=== PATIENT | female | born 1955 | race Caucasian/White ===

== ENCOUNTER 2019-03-08 11:21 | Outpatient (CLI) | payer MEDICARE, MEDICAID, SELFPAY ==
[2019-03-08 13:19] LABS: Basophils Percent Auto 0.3 % (0.2-1.2); Eosinophils Absolute Auto 0.7 K/mm3 (0-0.3); Eosinophils Percent Auto 8.7 % (0-4.4); Hematocrit 41.6 % (37.0-47.0); Hemoglobin 13.5 g/dL (12.0-15.0); Immature Granulocyte Absolute 0.02 K/mm3 (0.00-0.031); Immature Granulocyte Percent A 0.3 % (0-0.5); Lymphocytes Absolute Auto 3.32 K/mm3 (0.9-3.2); Lymphocytes Percent Auto 43.2 % (18.3-44.2); Mean Corpuscular HGB Conc 32.5 g/dl (32-36); Mean Corpuscular Volume 104.8 fl (80-100); Mean Platelet Volume 9.3 fl (7.4-10.4); Monocytes Absolute Auto 0.5 K/mm3 (0.1-0.6); Monocytes Percent Auto 5.9 % (2.6-8.5); Neutrophils Absolute Auto 3.2 K/mm3 (1.3-6.7); Neutrophils Percent Auto 41.6 % (45.5-73.1); Platelet Count Result 204 k/mm3 (150-375); Red Blood Count 3.97 M/mm3 (4.2-5.4); Red Cell Distribution Width 12.8 % (11.5-14.5); White Blood Count 7.7 K/mm3 (4.5-10.0)
[2019-03-08 13:24] LABS: Add Urine Microscopic? YES; Appearance Urine Cloudy (Clear); Bacteria Urine Trace /hpf; Bilirubin Urine Negative (Negative); Blood Urine 2+ (Negative); Color Urine Yellow (Yellow); Glucose Urine UA Negative (Negative); Ketones Urine Negative (Negative); Leukocyte Esterase Ur 3+ LEU/UL (NEGATIVE); Mucus Urine Rare /lpf; Nitrate Urine Negative (Negative); Protein Urine 1+ mg/dL (Negative); Specific Grav Ur 1.011 (1.001-1.035); Squamous Epithelial Cell Urine Many /hpf (Few); Urobilinogen Urine Negative mg/dL (<2.0); WBC Urine 51-75 /hpf (0-3)
[2019-03-08 13:27] LABS: Alanine Aminotransferase 18 U/L (4-35); Albumin Level 4.1 g/dL (3.5-5.1); Alkaline Phosphatase 139 U/L (38-126); Aspartate Amino Transferase 20 U/L (14-36); Bilirubin,Total 0.5 mg/dL (0.2-1.3); Blood Urea Nitrogen 18 mg/dL (7-17); Calcium 9.7 mg/dL (8.4-10.2); Carbon Dioxide 23 mmol/L (22-30); Chloride 101 mmol/L (98-107); Cholesterol 218 mg/dL (0-200); Estimated Glomerular Filt Rate > 60; Glucose 103 mg/dL (65-105); HDL Direct 48 mg/dL; Potassium 4.5 mmol/L (3.4-5.0); Sodium 135 mmol/L (137-145); Triglycerides 220 mg/dL (<150)
[2019-03-08 13:38] LABS: LDL Cholesterol Direct 129 mg/dL
[2019-03-08 13:46] LABS: Free T4 Free Thyroxine 1.01 ng/mL (0.78-2.19)
[2019-03-08 13:58] LABS: Thyroid Stimulating Hormone 0.523 uIU/mL (0.465-4.680)
== END 2019-03-08 11:22 | disposition home or self-care (01) ==
LOC: ANHWCLAB 11:39
PROVIDERS: PCP Physician Assistant; Visit Provider Physician Assistant
DX: E03.9 Hypothyroidism, unspecified (principal); E78.2 Mixed hyperlipidemia; Z79.899 Other long term (current) drug therapy
CPT/HCPCS: 36415; 80048; 80061; 80076; 81001; 84439; 84443; 85025

== ENCOUNTER 2019-04-09 09:36 | Outpatient (CLI) | payer MEDICARE, MEDICAID, SELFPAY ==
--- NOTE | ~2019-04-09 | DEXA_ITS ---
Bone Density Report Name: Dakotah Jernigan Age: 63 Sex: Female Ethnicity: White Date of : 1955 Indication: osteopenia; prior fracture; asthma or emphysema; Referring Provider: Tata, Efra Study: Bone densitometry was performed. Exam Date: April 09, 2019 Accession number: [id number] Bone Density: Region BMD T-score Z-score Classification AP Spine (L1-L4) 0.765 -2.6 -0.8 Osteoporosis World Health Organization criteria for BMD impression classify patients as: Normal (T-score at or above -1.0), Osteopenia (T-score between -1.0 and -2.5), or Osteoporosis (T-score at or below -2.5). Previous Exams: Region Exam Age BMD T-score BMD Change BMD Change Date g/cm2 vs Baseline vs Previous AP Spine(L1-L4) 04/09/2019 63 0.765 -2.6 -0.112(-12.7%) -0.053(-6.5%)# 10/27/2009 54 0.818 -2.1 -0.059(-6.7%)* 0.021(2.7%) 08/04/2007 52 0.797 -2.3 -0.080(-9.1%)* -0.042(-5.0%)* 01/06/2005 49 0.839 -1.9 -0.038(-4.3%)* -0.038(-4.3%)* 02/17/2004 48 0.877 -1.5 *Denotes significance at 95% confidence level, LSC for AP Spine = 0.022 g/cm2 Clinical Information Provided by Patient: Has had a low trauma fracture Has the following medical conditions: Asthma or Emphysema Patient maximum height was 57 Menopause Age: 35 No regular weight bearing exercise Does not regularly consume dairy products Onset of menses at age 12 Number of children 0 Impression: The patient has established osteoporosis, based on the Total Spine T-score and the existence of a prior fracture. The patient has risk factors, including: previous fracture. No significant bone loss was observed. Discussion: HIGH RISK OF FRACTURE. BONE DENSITY IS UNDESIRABLY LOW AT ONE OR MORE SKELETAL SITES, CONSISTENT WITH POSTMENOPAUSAL OSTEOPOROSIS. This patient's lowest T-score, in a patient who has previously fractured, meets the World Health Organization's (WHO) criteria for severe osteoporosis. In untreated patients, the risk of osteoporotic fracture increases approximately two-fold for each 1.0 SD decrease in T-score. Low bone density is not the only risk factor for fracture; also consider factors such as patient's age, frailty or poor health, risk of falling, risk of injury, previous osteoporotic fracture, family history of osteoporosis, cigarette smoking, low body weight, etc. Not everyone with low bone mineral density has osteoporosis; osteomalacia and other metabolic bone disorders should also be considered. Patients who have osteoporosis should be evaluated for specific diseases and conditions (secondary causes) that may cause or contribute to bone loss. The [place] [employer]ocr[employer] (AACE) and National Osteoporosis Foundation (NOF) recommend pharmacologic
== END 2019-04-09 09:37 | disposition home or self-care (01) ==
PROVIDERS: PCP Physician Assistant; Visit Provider Physician Assistant
DX: Z87.81 Personal history of (healed) traumatic fracture (principal); M81.0 Age-related osteoporosis without current pathological fracture
CPT/HCPCS: 77080

== ENCOUNTER 2019-04-11 14:58 | Outpatient (CLI) | payer MEDICARE, MEDICAID, SELFPAY ==
[2019-04-11 16:23] LABS: Add Urine Microscopic? YES; Appearance Urine Cloudy (Clear); Bacteria Urine 1+ /hpf; Bilirubin Urine Negative (Negative); Blood Urine 2+ (Negative); Color Urine Yellow (Yellow); Glucose Urine UA Negative (Negative); Ketones Urine Negative (Negative); Leukocyte Esterase Ur 3+ LEU/UL (NEGATIVE); Mucus Urine Rare /lpf; Nitrate Urine Positive (Negative); Protein Urine 2+ mg/dL (Negative); RBC Urine 21-50 /hpf (0-2); Specific Grav Ur 1.011 (1.001-1.035); Squamous Epithelial Cell Urine Many /hpf (Few); Urobilinogen Urine Negative mg/dL (<2.0); WBC Clumps Urine Present /HPF; WBC Urine >75 /hpf (0-3)
== END 2019-04-11 14:59 | disposition home or self-care (01) ==
LOC: ANHWCLAB 15:01
PROVIDERS: PCP Physician Assistant; Visit Provider Physician Assistant
DX: N39.0 Urinary tract infection, site not specified (principal)
CPT/HCPCS: 81001; 87077; 87086; 87088; 87186

== ENCOUNTER 2019-04-26 12:32 | Emergency (ER) | payer MEDICARE, MEDICAID, SELFPAY ==
--- NOTE | ~2019-04-26 | XR_ITS ---
EXAMINATION: XR knee RT 3V DATE: 04/26/2019 12:53 INDICATION: Nontraumatic right knee pain TECHNIQUE: Anteroposterior, oblique and crosstable lateral views of the right knee were obtained COMPARISON: 06/03/2018 FINDINGS: Alignment is normal. No fracture. Spaces appear relatively preserved on nonweightbearing imaging. Sm all right knee joint effusion without layering lipohemarthrosis. Soft tissues are unremarkable. IMPRESSION: 1. Small right knee joint effusion without osseous abnormality. Reviewed, dictated and finalized at location A.
[2019-04-26 12:36] VITALS: BP 113/81; PULSE 112; RESP 18; TEMP 36.8; O2SAT 96
--- NOTE | 2019-04-26 13:09 | ED.LOWEXIN ---
HPI - Extremity Injury (Lower) General Chief Complaint: Extremity Injury, Lower Stated Complaint: right knee pain Time Seen by Provider: 04/26/19 12:54 Source: patient Mode of arrival: ambulatory Limitations: no limitations History of Present Illness HPI Narrative: Patient presents emergency department using a cane reporting right knee pain that she noticed when she woke up from her sleep this morning. Patient denies any calf pain or tenderness. Patient denies any tenderness to the outside of the knee. Patient reports that she normally uses a cane to ambulate. Patient denies any recent injuries to the knee. Patient reports having intermittent chronic knee pain. Patient denies any other injuries. Related Data Home Medications Medication Instructions Recorded Confirmed clonazepam 1 mg tablet 1 mg PO DAILY 03/13/19 quetiapine 400 mg tablet 400 mg PO BID 03/13/19 Allergies Allergy/AdvReac Type Severity Reaction Status Date / Time sulfamethoxazole Allergy Mild ITCHING/KATE Verified 04/26/19 12:54 H codeine Allergy Unknown Itching Verified 04/26/19 12:54 Penicillins Allergy Unknown Itching Verified 04/26/19 12:54 trimethoprim Allergy Unknown Itching Verified 04/26/19 12:54 Review of Systems Review of Systems: Narrative: CONSTITUTIONAL: Denies fever, chills, or sweats. EYES: Denies visual changes, redness, or discharge. ENT: Denies rhinorrhea, congestion, sore throat, or otalgia. CARDIOVASCULAR: Denies chest pain, palpitations, or edema. RESPIRATORY: Denies cough or dyspnea. GASTROINTESTINAL: Denies abdominal pain, nausea, vomiting, or diarrhea. GENITOURINARY: Denies dysuria or hematuria. SKIN: Denies rash or itching. MUSCULOSKELETAL: Reports knee pain denies back pain, joint pain, or myalgia. NEUROLOGIC: Denies headache, numbness, dizziness, or weakness. PSYCHIATRIC: Denies anxiety or depression. [facility] Social History Social History Smoking status: Never smoker Second hand tobacco smoke exposure: Yes Alcohol intake: never Gender identity (if verbalized by the patient): Female Exam Narrative: Exam Narrative: GENERAL: Well-appearing, well-nourished, and in no acute distress. HEAD: Normocephalic, atraumatic. EYES: PERRLA and EOMI. CHEST: Clear to auscultation. No respiratory distress. No wheezes rales or rhonchi HEART: Regular rate and rhythm. EXTREMITIES: Normal range of motion. No appreciated swelling. No abrasions, ecchymosis, warmth, erythema to right knee. No other outward signs of injury. SKIN: Warm, dry, no rash. NEURO: No focal deficits. Alert and oriented x3. PSYCH: Normal mood and affect. Course Vital Signs Vital signs: Vital Signs Temperature 98.3 F 04/26/19 12:36 Pulse Rate 112 H 04/26/19 12:36 Respiratory Rate 18 04/26/19 12:36 Blood Pressure 113/81 04/26/19 12:36 Pulse Oximetry 96 04/26/19 12:36 Temperature 98.3 F 04/26/19 12:36 Pulse Rate 112 H 04/26/19 12:36 Respiratory Rate 18 04/26/19 12:36 Blood Pressure 113/81 04/26/19 12:36 Pulse Oximetry 96 04/26/19 12:36 MDM - Extremity Injury (Lower) Imaging Data Radiologist's impression: ITS Impressions Knee X-Ray 04/26/19 12:55 IMPRESSION: 1. Small right knee joint effusion without osseous abnormality. Discharge Plan Discharge Clinical Impression: Effusion of knee joint right Patient Disposition: Home, Self-Care Condition: Stable Instructions: Antibiotic Form Additional Instructions: Wear Arnulfo wrap for support. Elevate and apply cool compress. Avoid overuse. Take Tylenol or ibuprofen [id number] if you can tolerate them and if needed for discomfort. Follow-up with primary care for reevaluation if symptoms persist. Prescriptions: No Action quetiapine [Seroquel] 400 mg tablet 400 mg PO BID RF: 0 clonazepam [Klonopin] 1 mg tablet 1 mg PO DAILY RF: 0 estradiol [Estrace] 0.01 % (0.1 mg
== END 2019-04-26 14:05 | disposition home or self-care (01) ==
PROVIDERS: Emergency Provider Emergency Medicine; PCP Physician Assistant
DX: M25.461 Effusion, right knee (principal)
CPT/HCPCS: 73562; 99283

== ENCOUNTER 2019-07-23 14:45 | Emergency (ER) | payer MEDICARE, MEDICAID, SELFPAY ==
[2019-07-23 14:48] VITALS: BP 131/83; PULSE 105; RESP 18; TEMP 36.6; O2SAT 96
--- NOTE | 2019-07-23 15:07 | ED.GENADULT ---
HPI - General Adult General Chief complaint: Dizziness Stated complaint: dizzy Time Seen by Provider: 07/23/19 15:02 History of Present Illness HPI narrative: Patient presents with dizziness today since she took her morning meds twice yesterday. She said is not like the room is spinning but like she is going to faint. Her blood pressure here is normal she says she does not take blood pressure medicine. She lives alone. She is also has some insomnia. She has no pain and has not been sick. She does not smoke, drink, or do drug. Onset (ago): day(s) Related Data Home Medications Medication Instructions Recorded Confirmed clonazepam 1 mg tablet 1 mg PO DAILY 03/13/19 quetiapine 400 mg tablet 400 mg PO BID 03/13/19 risperidone mg 07/23/19 07/23/19 Allergies Allergy/AdvReac Type Severity Reaction Status Date / Time sulfamethoxazole Allergy Mild ITCHING/KATE Verified 04/26/19 12:54 H codeine Allergy Unknown Itching Verified 04/26/19 12:54 Penicillins Allergy Unknown Itching Verified 04/26/19 12:54 trimethoprim Allergy Unknown Itching Verified 04/26/19 12:54 Review of Systems Review of Systems: Narrative: CONSTITUTIONAL: Denies fever, chills, or sweats. She just feels lightheaded. EYES: Denies visual changes, redness, or discharge. ENT: Denies rhinorrhea, congestion, sore throat, or otalgia. CARDIOVASCULAR: Denies chest pain, palpitations, or edema. RESPIRATORY: Denies cough or dyspnea. GASTROINTESTINAL: Denies abdominal pain, nausea, vomiting, or diarrhea. GENITOURINARY: Denies dysuria or hematuria. SKIN: Denies rash or itching. MUSCULOSKELETAL: Denies back pain, joint pain, or myalgia. NEUROLOGIC: Denies headache, numbness, or weakness. PSYCHIATRIC: Denies anxiety or depression. [facility] Past Medical History Medical History Ankle fracture, left Anxiety Asthma Bipolar 1 disorder Bronchitis COPD (chronic obstructive pulmonary disease) Depression Endometriosis Gall bladder disease Hypothyroid IBS (irritable bowel syndrome) Kidney stones Osteoporosis Pneumonia UTI (urinary tract infection) Surgical History Surgical History H/O bilateral hip replacements H/O tubal ligation Hx of cholecystectomy Social History Social History (Updated 07/23/19 @ 15:09 by Anahy Metcalf MD) Smoking status: Never smoker Second hand tobacco smoke exposure: Yes Alcohol intake: never Substance use: never Living arrangements: alone Gender identity (if verbalized by the patient): Female Exam Narrative: Exam Narrative: GENERAL: Well-appearing, well-nourished, and in no acute distress. HEAD: Normocephalic, atraumatic. EYES: PERRLA and EOMI. eyes are wide set. ENT: Nares clear, no rhinorrhea or epistaxis. Mucous membranes moist. NECK: Supple. CHEST: Clear to auscultation. No respiratory distress. HEART: Regular rate and rhythm. No murmur heard. Normal peripheral pulses. ABDOMEN: Soft, nontender, nondistended, normal active bowel sounds. EXTREMITIES: Normal range of motion. No edema. SKIN: Warm, dry, no rash. NEURO: No focal deficits. Alert and oriented x3. PSYCH: Normal mood and affect. Course Reevaluation(s) Reevaluation #1: Went in to check on the patient, and she is feeling better. She says she is hungry and ready to go. Date: 07/23/19 Time: 17:23 Vital Signs Vital signs: Vital Signs Temperature 97.8 F 07/23/19 14:48 Pulse Rate 105 H 07/23/19 14:48 Respiratory Rate 18 07/23/19 14:48 Blood Pressure 131/83 07/23/19 14:48 Pulse Oximetry 96 07/23/19 14:48 Temperature 97.8 F 07/23/19 14:48 Pulse Rate 82 07/23/19 16:15 Respiratory Rate 18 07/23/19 14:48 Blood Pressure 114/80 07/23/19 16:15 Pulse Oximetry 96 07/23/19 14:48 Medical Decision Making MDM Narrative Medical decision making narrative: I suspect this should be a little orthostatic from the double clon
--- NOTE | 2019-07-23 15:14 | ECG_ITS ---
Measurements Intervals [place] Rate: 78 P: 40 IN: 156 QRS: 29 QRSD: 96 T: 18 QT: 337 QTc: 385 Interpretive Statements SINUS RHYTHM NORMAL ECG Electronically Signed On 07-23-2019 17:10:17 CDT by Mat Munoz D.O.
[2019-07-23] MEDS: SODIUM CHLORIDE 0.9% IV 1,000 ML 999 ML IV CONT (15:47)
[2019-07-23 15:58] LABS: Basophils Percent Auto 0.1 % (0.2-1.2); Eosinophils Absolute Auto 0.4 K/mm3 (0-0.3); Eosinophils Percent Auto 5.8 % (0-4.4); Hematocrit 36.5 % (37.0-47.0); Hemoglobin 12.3 g/dL (12.0-15.0); Immature Granulocyte Absolute 0.02 K/mm3 (0.00-0.031); Immature Granulocyte Percent A 0.3 % (0-0.5); Lymphocytes Absolute Auto 2.66 K/mm3 (0.9-3.2); Lymphocytes Percent Auto 39.6 % (18.3-44.2); Mean Corpuscular HGB Conc 33.7 g/dl (32-36); Monocytes Absolute Auto 0.5 K/mm3 (0.1-0.6); Monocytes Percent Auto 7.6 % (2.6-8.5); Neutrophils Absolute Auto 3.1 K/mm3 (1.3-6.7); Neutrophils Percent Auto 46.6 % (45.5-73.1); Platelet Count Result 174 k/mm3 (150-375); Red Blood Count 3.51 M/mm3 (4.2-5.4); White Blood Count 6.7 K/mm3 (4.5-10.0)
[2019-07-23 16:13] VITALS: BP 125/68; PULSE 72
[2019-07-23 16:14] VITALS: BP 130/83; PULSE 78
[2019-07-23 16:15] VITALS: BP 114/80; PULSE 82
[2019-07-23 16:47] LABS: Alanine Aminotransferase 14 U/L (4-35); Albumin Level 3.8 g/dL (3.5-5.1); Alkaline Phosphatase 112 U/L (38-126); Aspartate Amino Transferase 20 U/L (14-36); Bilirubin,Total 0.2 mg/dL (0.2-1.3); Blood Urea Nitrogen 15 mg/dL (7-17); Calcium 9.1 mg/dL (8.4-10.2); Carbon Dioxide 26 mmol/L (22-30); Chloride 107 mmol/L (98-107); Estimated CRCL calculation 49 ml/min; Estimated Glomerular Filt Rate 50; Glucose 99 mg/dL (65-105); Potassium 3.8 mmol/L (3.4-5.0); Sodium 139 mmol/L (137-145)
[2019-07-23 17:37] VITALS: BP 130/75; PULSE 69; RESP 16; TEMP 36.9; O2SAT 96
== END 2019-07-23 17:38 | disposition home or self-care (01) ==
PROVIDERS: Emergency Provider Emergency Medicine; PCP Physician Assistant
DX: T43.221A Poisoning by selective serotonin reuptake inhibitors, accidental (unintentional), initial encounter (principal); T42.4X1A Poisoning by benzodiazepines, accidental (unintentional), initial encounter; T38.1X1A Poisoning by thyroid hormones and substitutes, accidental (unintentional), initial encounter; T45.0X1A Poisoning by antiallergic and antiemetic drugs, accidental (unintentional), initial encounter; R42 Dizziness and giddiness; F41.9 Anxiety disorder, unspecified; F31.9 Bipolar disorder, unspecified; J44.9 Chronic obstructive pulmonary disease, unspecified; E03.9 Hypothyroidism, unspecified; K58.9 Irritable bowel syndrome, unspecified; Z87.442 Personal history of urinary calculi; M81.0 Age-related osteoporosis without current pathological fracture; Z87.440 Personal history of urinary (tract) infections; N80.9 Endometriosis, unspecified; Z96.643 Presence of artificial hip joint, bilateral
CPT/HCPCS: 36415; 80053; 85025; 93005; 96360; 99283; J7030

== ENCOUNTER 2019-08-01 15:36 | Emergency (ER) | payer MEDICARE, MEDICAID, SELFPAY ==
--- NOTE | ~2019-08-01 | CT_ITS ---
EXAMINATION: CT abdomen pelvis wo con DATE: 08/01/2019 16:15 INDICATION: Flank pain and hematuria TECHNIQUE: Computed tomography (CT) of the abdomen and pelvis was performed without intravenous contr ast. The dose-length product (DLP) was 726.01 mGy-cm. Automated exposure control and iterative recons truction technique were employed. COMPARISON: 01/22/2019 FINDINGS: Minimal dependent atelectasis is present in the lung bases. The heart size is normal. The g allbladder is surgically absent. There is mild enlargement of the common bile duct and central intrah epatic ducts which is likely due to post cholecystectomy state. A cyst of the right hepatic lobe stephanie ures 3.5 cm. The spleen, pancreas, and adrenal glands are normal. There are multiple nonobstructing s tones of the kidneys. Visualization of the distal ureters and portions of the bladder is obscured by streak artifact from bilateral hip arthroplasties. No stones are identified in the ureters or bladder . There is no hydronephrosis or hydroureter.. No pathologically enlarged abdominal or pelvic lymph no tj are identified. There is no free intraperitoneal gas or evidence of bowel obstruction. There is m ild lumbar spondylosis. IMPRESSION: 1. Bilateral nonobstructing nephrolithiasis. Reviewed, dictated and finalized at location A.
[2019-08-01 15:38] VITALS: BP 135/73; PULSE 92; RESP 18; TEMP 36.5; O2SAT 97
--- NOTE | 2019-08-01 16:16 | ED.ABDPAIN ---
HPI - Abdominal Pain General Chief Complaint: Urogenital-Female Stated Complaint: BLOOD IN URINE Time Seen by Provider: 08/01/19 15:53 Source: patient Mode of arrival: ambulatory Limitations: no limitations History of Present Illness HPI narrative: Patient is a 64-year-old female presenting with 1 day duration of left groin flank pain burning with urination denies any fever chills nausea vomiting has not been seen for this complaint has not taken anything for her symptoms notes history of urolithiasis Related Data Home Medications Medication Instructions Recorded Confirmed clonazepam 1 mg tablet 1 mg PO DAILY 03/13/19 quetiapine 400 mg tablet 400 mg PO BID 03/13/19 risperidone mg 07/23/19 07/23/19 Allergies Allergy/AdvReac Type Severity Reaction Status Date / Time sulfamethoxazole Allergy Mild ITCHING/KATE Verified 04/26/19 12:54 H codeine Allergy Unknown Itching Verified 04/26/19 12:54 Penicillins Allergy Unknown Itching Verified 04/26/19 12:54 trimethoprim Allergy Unknown Itching Verified 04/26/19 12:54 Review of Systems Review of Systems: All systems reviewed & are unremarkable except as noted in HPI and below PMFSH Past Medical History Medical History Ankle fracture, left Anxiety Asthma Bipolar 1 disorder Bronchitis COPD (chronic obstructive pulmonary disease) Depression Endometriosis Gall bladder disease Hypothyroid IBS (irritable bowel syndrome) Kidney stones Osteoporosis Pneumonia UTI (urinary tract infection) Surgical History Surgical History H/O bilateral hip replacements H/O tubal ligation Hx of cholecystectomy Social History Social History Smoking status: Never smoker Second hand tobacco smoke exposure: Yes Alcohol intake: never Substance use: never Gender identity (if verbalized by the patient): Female Exam Narrative: Exam Narrative: GENERAL: Well-appearing, well-nourished, and in no acute distress. HEAD: Normocephalic, atraumatic. EYES: PERRLA and EOMI. ENT: Nares clear, no rhinorrhea or epistaxis. Mucous membranes moist. CHEST: Clear to auscultation. No respiratory distress. No wheezes rales or rhonchi HEART: Regular rate and rhythm. No murmur heard. Normal peripheral pulses. ABDOMEN: Soft, nontender, nondistended EXTREMITIES: Normal range of motion. No edema. SKIN: Warm, dry, no rash. NEURO: No focal deficits. Alert and oriented x3. PSYCH: Normal mood and affect. Course Course Emergency Course: Patient in the room in no distress aware of case findings treatment plan and diagnosis agreeing to follow-up with patient's primary care for further evaluation Vital Signs Vital signs: Vital Signs Temperature 97.7 F 08/01/19 15:38 Pulse Rate 92 08/01/19 15:38 Respiratory Rate 18 08/01/19 15:38 Blood Pressure 135/73 08/01/19 15:38 Pulse Oximetry 97 08/01/19 15:38 Temperature 97.7 F 08/01/19 15:38 Pulse Rate 92 08/01/19 15:38 Respiratory Rate 18 08/01/19 15:38 Blood Pressure 135/73 08/01/19 15:38 Pulse Oximetry 97 08/01/19 15:38 MDM - Abdominal Pain MDM Narrative Medical decision making narrative: Patient in the room with findings consistent of urinary tract infection no other high risk changes noted patient given Rocephin and fluids in the emergency department with improvement and will be discharged home with reasons to return Lab Data Labs: Lab Results 08/01/19 Range/Units 15:56 Urine Color Pending Urine Appearance Pending Urine pH Pending Ur Specific [place] Pending Urine Protein Pending Urine Glucose (UA) Pending Urine Ketones Pending Ur Blood (Man) Pending Urine Nitrate Pending Urine Bilirubin Pending Urine Urobilinogen Pending Leukocyte Esterase Rfl Pending Imaging Data Radiologist's impression:
[2019-08-01 16:17] LABS: Add Urine Microscopic? YES; Amorphous Sediment Urine Few; Appearance Urine Cloudy (Clear); Bacteria Urine Trace /hpf; Bilirubin Urine Negative (Negative); Blood Urine 1+ (Negative); Color Urine Yellow (Yellow); Glucose Urine UA Negative (Negative); Ketones Urine Negative (Negative); Leukocyte Esterase Ur 3+ LEU/UL (Negative); Mucus Urine Rare /lpf; Nitrate Urine Positive (Negative); Protein Urine 1+ mg/dL (Negative); RBC Urine 21-50 /hpf (0-2); Specific Grav Ur 1.012 (1.001-1.035); Squamous Epithelial Cell Urine Many /hpf (Few); Urobilinogen Urine Negative mg/dL (<2.0); WBC Clumps Urine Present /HPF; WBC Urine >75 /hpf
[2019-08-01] MEDS: FAMOTIDINE 20 MG/2 ML VIAL IV PUSH (16:51)
[2019-08-01] MEDS: SODIUM CHLORIDE 0.9% IV 1,000 ML 999 ML IV CONT (16:52)
[2019-08-01 17:11] LABS: Basophils Percent Auto 0.3 % (0.2-1.2); Eosinophils Absolute Auto 0.5 K/mm3 (0-0.3); Eosinophils Percent Auto 6.5 % (0-4.4); Hematocrit 35.4 % (37.0-47.0); Hemoglobin 11.6 g/dL (12.0-15.0); Immature Granulocyte Absolute 0.03 K/mm3 (0.00-0.031); Immature Granulocyte Percent A 0.4 % (0-0.5); Lymphocytes Absolute Auto 3.26 K/mm3 (0.9-3.2); Mean Corpuscular HGB Conc 32.8 g/dl (32-36); Mean Corpuscular Hemoglobin 34.5 pg (26-34); Mean Corpuscular Volume 105.4 fl (80-100); Mean Platelet Volume 8.5 fl (7.4-10.4); Monocytes Absolute Auto 0.6 K/mm3 (0.1-0.6); Monocytes Percent Auto 8.4 % (2.6-8.5); Neutrophils Absolute Auto 2.9 K/mm3 (1.3-6.7); Neutrophils Percent Auto 39.4 % (45.5-73.1); Platelet Count Result 160 k/mm3 (150-375); Red Blood Count 3.36 M/mm3 (4.2-5.4); Red Cell Distribution Width 13.2 % (11.5-14.5); White Blood Count 7.2 K/mm3 (4.5-10.0)
[2019-08-01 17:23] LABS: Alanine Aminotransferase 14 U/L (4-35); Albumin Level 3.6 g/dL (3.5-5.1); Alkaline Phosphatase 109 U/L (38-126); Aspartate Amino Transferase 18 U/L (14-36); Bilirubin,Total 0.2 mg/dL (0.2-1.3); Blood Urea Nitrogen 15 mg/dL (7-17); Calcium 8.9 mg/dL (8.4-10.2); Carbon Dioxide 28 mmol/L (22-30); Chloride 107 mmol/L (98-107); Estimated CRCL calculation 53 ml/min; Estimated Glomerular Filt Rate 56; Glucose 98 mg/dL (65-105); Potassium 4.3 mmol/L (3.4-5.0); Sodium 138 mmol/L (137-145)
[2019-08-01 18:20] VITALS: BP 142/70; PULSE 78; RESP 20; O2SAT 99
--- NOTE | 2019-08-02 15:25 | PC.NURSE ---
Patient called in with questions about Rx given yesterday. She states EDP sent Penicillin and Benadryl Rx to the pharmacy for her UTI. This RN informed patient that two prescriptions, Keflex and Pyridium were sent in to [facility] the [facility] yesterday for picker and packer. Pt verbalized understanding and stated she would call the pharmacy again.
== END 2019-08-01 18:21 | disposition home or self-care (01) ==
PROVIDERS: Emergency Medicine Emergency Medical Services; Emergency Provider Emergency Medicine; PCP Physician Assistant
DX: N39.0 Urinary tract infection, site not specified (principal); N20.0 Calculus of kidney; Z87.442 Personal history of urinary calculi; F41.9 Anxiety disorder, unspecified; F31.9 Bipolar disorder, unspecified; J44.9 Chronic obstructive pulmonary disease, unspecified; N80.9 Endometriosis, unspecified; E03.9 Hypothyroidism, unspecified; K58.9 Irritable bowel syndrome, unspecified; M81.0 Age-related osteoporosis without current pathological fracture; Z96.643 Presence of artificial hip joint, bilateral
CPT/HCPCS: 36415; 74176; 80053; 81001; 85025; 87077; 87086; 87088; 87186; 96365; 96367; 96375; 99284; J0131; J0696; J7030

== ENCOUNTER 2019-08-07 15:30 | Emergency (ER) | payer MEDICARE, MEDICAID, SELFPAY ==
--- NOTE | ~2019-08-07 | XR_ITS ---
EXAMINATION: XR abdomen/kub 1V INDICATION: Abdominal and flank pain TECHNIQUE: Supine views of the abdomen were obtained on 2 radiographs. COMPARISON: 03/12/2018; CT, 08/01/2019 FINDINGS: Stones in the kidneys measure up to 7 mm on the right and 11 mm on the left. No stones are identified along the expected courses of the ureter or within the bladder. There are phleboliths of t he pelvis. Cholecystectomy clips are noted in the right upper quadrant. The visualized lung bases are clear. There are changes of bilateral total hip arthroplasty. IMPRESSION: 1. Bilateral nephrolithiasis. Reviewed, dictated and finalized at location A.
[2019-08-07 15:40] VITALS: BP 117/84; PULSE 93; RESP 18; TEMP 36.6; O2SAT 95
[2019-08-07 16:15] LABS: Add Urine Microscopic? YES; Appearance Urine Cloudy (Clear); Bacteria Urine Trace /hpf; Bilirubin Urine Negative (Negative); Blood Urine 2+ (Negative); Color Urine Amber (Yellow); Glucose Urine UA Negative (Negative); Ketones Urine Negative (Negative); Leukocyte Esterase Ur 3+ LEU/UL (Negative); Mucus Urine Moderate /lpf; Nitrate Urine Positive (Negative); Protein Urine 2+ mg/dL (Negative); RBC Urine 51-75 /hpf (0-2); Specific Grav Ur 1.015 (1.001-1.035); Squamous Epithelial Cell Urine Many /hpf (Few); WBC Urine >75 /hpf
--- NOTE | 2019-08-07 17:49 | ED.ABDPAIN ---
HPI - Abdominal Pain General Chief Complaint: Abdominal Pain Stated Complaint: Abd Pain, Back Pain Time Seen by Provider: 08/07/19 17:22 Source: patient Mode of arrival: ambulatory Limitations: no limitations History of Present Illness HPI narrative: This patient is a 64 year old female who presents for evaluation mid abdominal pain starting yesterday. She states 2 days ago she developed diarrhea so she took antidiarrhea medication yesterday. AFter taking the medication she states she has had cramping mid abdominal pain. She reports nausea but no vomiting. She denies fever or chills. She also notes she was evaluated her a few days ago for intermittent flank pain and back pain. She was found to have bilateral kidney stones and she states those stones have been present for years. MD elicited complaint: abdominal pain Related Data Home Medications Medication Instructions Recorded Confirmed clonazepam 1 mg tablet 1 mg PO DAILY 03/13/19 quetiapine 400 mg tablet 400 mg PO BID 03/13/19 risperidone mg 07/23/19 07/23/19 Allergies Allergy/AdvReac Type Severity Reaction Status Date / Time sulfamethoxazole Allergy Mild ITCHING/KATE Verified 04/26/19 12:54 H codeine Allergy Unknown Itching Verified 04/26/19 12:54 Penicillins Allergy Unknown Itching Verified 04/26/19 12:54 trimethoprim Allergy Unknown Itching Verified 04/26/19 12:54 Review of Systems Review of Systems: All systems reviewed & are unremarkable except as noted in HPI and below Constitutional: Constitutional: Denies chills and Denies fever(s) Respiratory: Respiratory: Denies cough and Denies dyspnea Gastrointestinal: Gastrointestinal: Reports abdominal pain, Reports diarrhea, Reports nausea and Denies vomiting Genitourinary: Genitourinary: Denies hematuria, Denies nocturia, Denies dysuria and Reports flank pain Musculoskeletal: Musculoskeletal: Reports back pain PMFSH Social History Social History Smoking status: Never smoker Second hand tobacco smoke exposure: Yes Alcohol intake: never Substance use: never Gender identity (if verbalized by the patient): Female Exam Narrative: Exam Narrative: GENERAL: Well-appearing, well-nourished, and in no acute distress. HEAD: Normocephalic, atraumatic EYES: PERRLA and EOMI, NOSE: widened nasal bridge THROAT:Mucous membranes moist, Oropharynx normal without erythema, exudate, peritonsillar swelling or fluctuance NECK: Supple, without lymphadenopathy or mass RESPIRATORY: No respiratory distress, Airway patent, Respirations non-labored, Clear to auscultation without rales, rhonchi or wheeze HEART: Regular rate and rhythm. No murmur heard. Normal peripheral pulses. ABDOMEN: Soft, nontender, nondistended, normal active bowel sounds. No masses. No rebound or guarding, No organomegaly. EXTREMITIES: No edema, normal strength with full range of motion. SKIN: Warm, dry, normal color without rash NEURO: Alert and oriented x3. CN 2-12 grossly intact. No focal deficits. PSYCH: Normal mood and affect. Course Reevaluation(s) Reevaluation #1: I have discussed with patient that we will change her antibiotics as culture and sensitivity has returned. Labs are other gonzales normal and abdominal exam is normal Date: 08/07/19 Time: 18:35 Vital Signs Vital signs: Vital Signs Temperature 97.8 F 08/07/19 15:40 Pulse Rate 93 08/07/19 15:40 Respiratory Rate 18 08/07/19 15:40 Blood Pressure 117/84 08/07/19 15:40 Pulse Oximetry 95 08/07/19 15:40 Temperature 97.8 F 08/07/19 15:40 Pulse Rate 93 08/07/19 15:40 Respiratory Rate 18 08/07/19 15:40 Blood Pressure 117/84 08/07/19 15:40 Pulse Oximetry 95 08/07/19 15:40 MDM - Abdominal Pain Lab Data Attestation: I reviewed the patient's lab results. Result diagrams: 08/07/19 17:43 08/07/19 17:43 Labs: Lab Results 08/07/19 08/07/19
[2019-08-07 17:50] LABS: Basophils Percent Auto 0.2 % (0.2-1.2); Eosinophils Absolute Auto 0.4 K/mm3 (0-0.3); Eosinophils Percent Auto 4.7 % (0-4.4); Hematocrit 41.5 % (37.0-47.0); Hemoglobin 13.4 g/dL (12.0-15.0); Immature Granulocyte Absolute 0.02 K/mm3 (0.00-0.031); Immature Granulocyte Percent A 0.2 % (0-0.5); Lymphocytes Absolute Auto 3.03 K/mm3 (0.9-3.2); Lymphocytes Percent Auto 35.8 % (18.3-44.2); Mean Corpuscular HGB Conc 32.3 g/dl (32-36); Mean Corpuscular Hemoglobin 34.5 pg (26-34); Mean Platelet Volume 8.8 fl (7.4-10.4); Monocytes Absolute Auto 0.4 K/mm3 (0.1-0.6); Monocytes Percent Auto 4.8 % (2.6-8.5); Neutrophils Absolute Auto 4.6 K/mm3 (1.3-6.7); Neutrophils Percent Auto 54.3 % (45.5-73.1); Platelet Count Result 202 k/mm3 (150-375); Red Blood Count 3.88 M/mm3 (4.2-5.4); Red Cell Distribution Width 13.2 % (11.5-14.5); White Blood Count 8.5 K/mm3 (4.5-10.0)
[2019-08-07 18:03] LABS: Alanine Aminotransferase 17 U/L (4-35); Albumin Level 4.2 g/dL (3.5-5.1); Alkaline Phosphatase 147 U/L (38-126); Aspartate Amino Transferase 22 U/L (14-36); Bilirubin,Total 0.5 mg/dL (0.2-1.3); Blood Urea Nitrogen 17 mg/dL (7-17); Calcium 9.7 mg/dL (8.4-10.2); Carbon Dioxide 25 mmol/L (22-30); Chloride 106 mmol/L (98-107); Estimated CRCL calculation 46 ml/min; Estimated Glomerular Filt Rate 45; Glucose 97 mg/dL (65-105); Lipase 159 U/L (23-300); Potassium 4.3 mmol/L (3.4-5.0); Sodium 138 mmol/L (137-145)
[2019-08-07] MEDS: ONDANSETRON HCL ODT 4 MG TABLET PO (19:10)
[2019-08-07] MEDS: NITROFURANTOIN MONOHYD MACROCR 100 MG CAP PO (19:10)
[2019-08-07] MEDS: DICYCLOMINE HCL INJ 20 MG/2 ML VIAL IM (19:10)
== END 2019-08-07 19:12 | disposition home or self-care (01) ==
PROVIDERS: Physician Assistant; Emergency Provider General Practice; PCP Physician Assistant
DX: N39.0 Urinary tract infection, site not specified (principal)
CPT/HCPCS: 36415; 74018; 80053; 81001; 83690; 85025; 87086; 96372; 99283; A9270; J0500

== ENCOUNTER 2019-08-22 15:56 | Emergency (ER) | payer MEDICARE, MEDICAID, SELFPAY ==
--- NOTE | ~2019-08-22 | CT_ITS ---
EXAMINATION: CT abdomen pelvis w con DATE: 08/22/2019 18:39 INDICATION: Left flank pain. TECHNIQUE: Computed tomography (CT) of the abdomen and pelvis was performed with 100 mL Omnipaque 350 intravenous contrast. Automated exposure control and iterative reconstruction technique were employe d. The dose-length product was 647.43 mGy-cm. COMPARISON: CT abdomen and pelvis 08/01/2019 FINDINGS: The visualized portions of the lung bases demonstrate mild atelectasis. No pleural effusion . The heart size is normal. No pericardial effusion. There are cysts in the liver measuring up to 3.6 cm. There are changes of cholecystectomy. The spleen, pancreas, and adrenal glands are normal. There are greater than 10 stones in right kidney measuring up to 6 mm. There are cysts in left kidney stephanie uring up to 3.9 cm. There are greater than 10 stones in left kidney measuring up to 11 mm. There are no dilated loops of bowel. The appendix is normal. There are no pathologically enlarged lymph nodes. There is no free intraperitoneal fluid. There are bilateral total hip arthroplasties. There is mild l umbar spondylosis. IMPRESSION: 1. Bilateral nonobstructing kidney stones. Reviewed, dictated and finalized at location A.
--- NOTE | ~2019-08-22 | XR_ITS ---
EXAMINATION: XR abdomen/kub 1V DATE: 08/22/2019 18:46 INDICATION: Left flank pain. TECHNIQUE: A supine view of the abdomen on 2 radiographs was obtained. COMPARISON: CT abdomen and pelvis 08/22/2019 FINDINGS: There are no dilated loops of bowel. There are bilateral total hip arthroplasties. There ar e stones in the kidneys that are partially obscured by contrast. No hydronephrosis. Surgical clips in the right upper quadrant are likely from cholecystectomy. IMPRESSION: 1. Bilateral kidney stones. Reviewed, dictated and finalized at location A. IMPRESSION: 1. Bilateral kidney stones.
[2019-08-22 15:58] VITALS: BP 129/62; PULSE 80; RESP 20; TEMP 36.7; O2SAT 98
--- NOTE | 2019-08-22 16:16 | ED.GENADULT ---
HPI - General Adult General Chief complaint: Back Pain/Injury Stated complaint: R FLANK PAIN Time Seen by Provider: 08/22/19 16:15 Source: patient Mode of arrival: ambulatory Limitations: no limitations History of Present Illness HPI narrative: 64-year-old female patient presents to the [facility] with complaints of left lower back pain that started today. Patient states she was seen recently and was diagnosed with a UTI. Patient states that she will take her last dose of antibiotics tonight before bed. Patient denies any fevers, nausea, vomiting or diarrhea. Patient states she knows she has some kidney stones but states that the pain to the left lower back is increased. Patient denies taking anything for the pain. Patient states that she is also had a little bit of some abdominal pain but nothing severe. Patient denies any pain with urination. Related Data Home Medications Medication Instructions Recorded Confirmed clonazepam 1 mg tablet 1 mg PO DAILY 03/13/19 quetiapine 400 mg tablet 400 mg PO BID 03/13/19 risperidone mg 07/23/19 07/23/19 Allergies Allergy/AdvReac Type Severity Reaction Status Date / Time sulfamethoxazole Allergy Mild ITCHING/KATE Verified 04/26/19 12:54 H codeine Allergy Unknown Itching Verified 04/26/19 12:54 Penicillins Allergy Unknown Itching Verified 04/26/19 12:54 trimethoprim Allergy Unknown Itching Verified 04/26/19 12:54 Review of Systems Review of Systems: Narrative: CONSTITUTIONAL: Denies fever, chills, or sweats. EYES: Denies visual changes, redness, or discharge. ENT: Denies rhinorrhea, congestion, sore throat, or otalgia. CARDIOVASCULAR: Denies chest pain, palpitations, or edema. RESPIRATORY: Denies cough or dyspnea. GASTROINTESTINAL: Denies abdominal pain, nausea, vomiting, or diarrhea. GENITOURINARY: Denies dysuria or hematuria. Left flank pain SKIN: Denies rash or itching. MUSCULOSKELETAL: Denies back pain, joint pain, or myalgia. NEUROLOGIC: Denies headache, numbness, or weakness. PSYCHIATRIC: Denies anxiety or depression. FORMERLY [facility] Past Medical History Medical History Ankle fracture, left Anxiety Asthma Bipolar 1 disorder Bronchitis COPD (chronic obstructive pulmonary disease) Depression Endometriosis Gall bladder disease Hypothyroid IBS (irritable bowel syndrome) Kidney stones Osteoporosis Pneumonia UTI (urinary tract infection) Surgical History Surgical History H/O bilateral hip replacements H/O tubal ligation Hx of cholecystectomy Family History Family History Sibling Patient's sister is in good health Father Acute myocardial infarction Hypertension Mother Family history of diabetes mellitus in first degree relative Other Family history of blood dyscrasia Social History Social History Smoking status: Never smoker Second hand tobacco smoke exposure: Yes Alcohol intake: never Substance use: never Gender identity (if verbalized by the patient): Female Comments At the time of my signature I agree with nursing past medical history, surgical, social, and family history. There is no relevant family history pertinent to the presenting complaint. Exam Narrative: Exam Narrative: GENERAL: Well-appearing, well-nourished, and in no acute distress. HEAD: Normocephalic, atraumatic. EYES: PERRLA and EOMI. ENT: Nares clear, no rhinorrhea or epistaxis. Mucous membranes moist. NECK: Supple. No lymphadenopathy CHEST: Clear to auscultation. No respiratory distress. HEART: Regular rate and rhythm. No murmur heard. Normal peripheral pulses. ABDOMEN: Soft, flat, nondistended. Slight tenderness noted to the right lower quadrant on palpation. No guarding, rebound tenderness, or rigid. No pulsatilla masses. Bowel sounds present in all four
[2019-08-22 17:53] LABS: Basophils Percent Auto 0.1 % (0.2-1.2); Eosinophils Absolute Auto 0.5 K/mm3 (0-0.3); Eosinophils Percent Auto 7.5 % (0-4.4); Hematocrit 37.3 % (37.0-47.0); Hemoglobin 12.3 g/dL (12.0-15.0); Immature Granulocyte Absolute 0.01 K/mm3 (0.00-0.031); Immature Granulocyte Percent A 0.1 % (0-0.5); Lymphocytes Absolute Auto 2.61 K/mm3 (0.9-3.2); Mean Corpuscular Hemoglobin 35.1 pg (26-34); Mean Corpuscular Volume 106.6 fl (80-100); Mean Platelet Volume 8.8 fl (7.4-10.4); Monocytes Absolute Auto 0.5 K/mm3 (0.1-0.6); Monocytes Percent Auto 6.5 % (2.6-8.5); Neutrophils Absolute Auto 3.6 K/mm3 (1.3-6.7); Neutrophils Percent Auto 49.8 % (45.5-73.1); Platelet Count Result 155 k/mm3 (150-375); White Blood Count 7.2 K/mm3 (4.5-10.0)
[2019-08-22 18:05] LABS: Alanine Aminotransferase 16 U/L (4-35); Albumin Level 3.9 g/dL (3.5-5.1); Alkaline Phosphatase 112 U/L (38-126); Aspartate Amino Transferase 22 U/L (14-36); Bilirubin,Total 0.5 mg/dL (0.2-1.3); Blood Urea Nitrogen 19 mg/dL (7-17); Calcium 9.5 mg/dL (8.4-10.2); Carbon Dioxide 28 mmol/L (22-30); Chloride 106 mmol/L (98-107); Estimated CRCL calculation 55 ml/min; Estimated Glomerular Filt Rate 56; Glucose 102 mg/dL (65-105); Potassium 4.6 mmol/L (3.4-5.0); Sodium 138 mmol/L (137-145)
[2019-08-22] MEDS: SODIUM CHLORIDE 0.9% IV 1,000 ML 999 ML IV CONT (18:08)
[2019-08-22 18:09] VITALS: BP 123/77; PULSE 78; RESP 20; O2SAT 99
[2019-08-22 18:12] LABS: Prothrombin Time 12.8 Seconds (11.1-14.7)
[2019-08-22 18:13] LABS: Partial Thromboplastin Time 27.4 SECONDS (22.3-36.8)
[2019-08-22 18:20] LABS: Add Urine Microscopic? YES; Appearance Urine Cloudy (Clear); Bacteria Urine Trace /hpf; Bilirubin Urine Negative (Negative); Blood Urine 1+ (Negative); Color Urine Yellow (Yellow); Glucose Urine UA Negative (Negative); Ketones Urine Negative (Negative); Leukocyte Esterase Ur 3+ LEU/UL (Negative); Mucus Urine Rare /lpf; Nitrate Urine Negative (Negative); Protein Urine Negative (Negative); RBC Urine 21-50 /hpf (0-2); Specific Grav Ur 1.014 (1.001-1.035); Squamous Epithelial Cell Urine Many /hpf (Few); Urobilinogen Urine Negative mg/dL (<2.0); WBC Urine >75 /hpf
[2019-08-22] MEDS: FAMOTIDINE 20 MG TABLET PO (19:14)
[2019-08-22 19:37] VITALS: BP 122/78; PULSE 78; RESP 20; TEMP 36.8; O2SAT 99
== END 2019-08-22 19:39 | disposition home or self-care (01) ==
PROVIDERS: Emergency Provider Nurse Practitioner Family; PCP Physician Assistant
DX: N20.0 Calculus of kidney (principal); F41.9 Anxiety disorder, unspecified; F31.9 Bipolar disorder, unspecified; J44.9 Chronic obstructive pulmonary disease, unspecified; N80.9 Endometriosis, unspecified; E03.9 Hypothyroidism, unspecified; K58.9 Irritable bowel syndrome, unspecified; Z87.442 Personal history of urinary calculi; M81.0 Age-related osteoporosis without current pathological fracture; Z96.643 Presence of artificial hip joint, bilateral; R10.9 Unspecified abdominal pain
CPT/HCPCS: 36415; 74018; 74177; 80053; 81001; 85025; 85610; 85730; 87086; 96360; 99284; A9270; J7030; Q9967

== ENCOUNTER 2019-09-26 14:36 | Outpatient (CLI) | payer MEDICARE, MEDICAID, SELFPAY ==
--- NOTE | ~2019-09-26 | XR_ITS ---
EXAMINATION: XR abdomen/kub 1V INDICATION: Calculus of kidney TECHNIQUE: Supine views of the abdomen were obtained on 2 radiographs. COMPARISON: 08/22/2019 FINDINGS: At least six stones and clusters of stones are identified in the left kidney which measure up to 12 mm and appears stable. There are at least three stones or clusters of stones in the right ki dney which measure up to 9 mm, also stable. No stones are identified along the expected courses of th e ureters or within the urinary bladder. Pelvic phleboliths are noted. There are bilateral total hip arthroplasties. The bowel gas pattern is normal. IMPRESSION: 1. Stable bilateral nephrolithiasis. Reviewed, dictated and finalized at location A.
== END 2019-09-26 14:37 | disposition home or self-care (01) ==
PROVIDERS: PCP Physician Assistant; Visit Provider Urology
DX: N20.0 Calculus of kidney (principal)
CPT/HCPCS: 74018

== ENCOUNTER 2019-10-25 19:06 | Emergency (ER) | payer MEDICARE, MEDICAID, SELFPAY ==
[2019-10-25 19:17] VITALS: BP 115/74; PULSE 80; RESP 17; TEMP 36.8; O2SAT 97
--- NOTE | 2019-10-25 19:40 | ED.URI ---
HPI - URI/Sore Throat General Chief Complaint: Upper Respiratory Infection Stated Complaint: stuffy nose? Time Seen by Provider: 10/25/19 19:40 Source: patient Mode of arrival: ambulatory Limitations: no limitations History of Present Illness HPI Narrative: Patient is a 64-year-old female with a history of COPD, bipolar disorder who presents for evaluation of nasal congestion. Patient states she has had 3 days worth of constant nasal congestion, that has been refractory to treatment with many [id number] remedies. Patient denies mild, clear rhinorrhea. No epistaxis, no purulent discharge. She denies fever or sinus pain. She denies chest pain, cough or shortness of breath. No sore throat or otalgia. No loss of sense of taste or smell. No recent sick contacts. I went through an entire gamut with review of systems and patient really is only reporting stuffy nose. Related Data Home Medications Medication Instructions Recorded Confirmed clonazepam 1 mg tablet 1 mg PO DAILY 03/13/19 quetiapine 400 mg tablet 400 mg PO BID 03/13/19 risperidone mg 07/23/19 07/23/19 Allergies Allergy/AdvReac Type Severity Reaction Status Date / Time sulfamethoxazole Allergy Mild ITCHING/KATE Verified 10/25/19 19:19 H codeine Allergy Unknown Itching Verified 10/25/19 19:19 Penicillins Allergy Unknown Itching Verified 10/25/19 19:19 trimethoprim Allergy Unknown Itching Verified 10/25/19 19:19 Review of Systems Review of Systems: Narrative: CONSTITUTIONAL: Denies fever HEENT: Reports nasal congestion, denies eye discharge CARDIOVASCULAR: Denies chest pain RESPIRATORY: Denies cough or dyspnea. GASTROINTESTINAL: Denies abdominal pain SKIN: Denies rash MUSCULOSKELETAL: Denies back pain NEUROLOGIC: Denies headache [facility]LY [facility] Past Medical History Medical History Ankle fracture, left Anxiety Asthma Bipolar 1 disorder Bronchitis COPD (chronic obstructive pulmonary disease) Depression Endometriosis Gall bladder disease Hypothyroid IBS (irritable bowel syndrome) Kidney stones Osteoporosis Pneumonia UTI (urinary tract infection) Surgical History Surgical History H/O bilateral hip replacements H/O tubal ligation Hx of cholecystectomy Family History Family History Sibling Patient's sister is in good health Father Acute myocardial infarction Hypertension Mother Family history of diabetes mellitus in first degree relative Other Family history of blood dyscrasia Social History Social History Smoking status: Never smoker Second hand tobacco smoke exposure: Yes Alcohol intake: never Substance use: never Gender identity (if verbalized by the patient): Female Exam Narrative: Exam Narrative: GENERAL: Awake, alert, conversant HEAD: Normocephalic, atraumatic. EYES: PERRLA and EOMI. ENT: Nares clear, no rhinorrhea or epistaxis. Mucous membranes moist. Mild rhinorrhea bilaterally. Nares are patent. No mass identified. NECK: Supple. Oropharynx is clear. Uvula is midline. No petechiae or erythema. No exudate. No trismus. CHEST: No respiratory distress, breathing even and non labored HEART: Regular rate, sinus rhythm ABDOMEN:Non distended, non tender EXTREMITIES: Normal range of motion. No edema. SKIN: Warm, dry, no rash. NEURO:No focal deficits. Alert and oriented x3 Course Vital Signs Vital signs: Vital Signs Temperature 36.8 C 10/25/19 19:17 Pulse Rate 80 10/25/19 19:17 Respiratory Rate 10/25/19 19:17 Blood Pressure 115/74 10/25/19 19:17 Pulse Oximetry 97 10/25/19 19:17 Temperature 36.8 C 10/25/19 19:17 Pulse Rate 80 10/25/19 19:17 Respiratory Rate 17 10/25/19 19:17 Blood Pressure 115/74 10/25/19 19:17 Pulse Oximetry 97 10/25/19 19:17
[2019-10-25 20:21] VITALS: BP 119/69; PULSE 83; RESP 16; TEMP 36.6; O2SAT 100
== END 2019-10-25 20:25 | disposition home or self-care (01) ==
PROVIDERS: Emergency Provider Emergency Medicine; PCP Physician Assistant
DX: J06.9 Acute upper respiratory infection, unspecified (principal); Z96.643 Presence of artificial hip joint, bilateral; F41.9 Anxiety disorder, unspecified; F31.9 Bipolar disorder, unspecified; J45.909 Unspecified asthma, uncomplicated; J44.9 Chronic obstructive pulmonary disease, unspecified; N80.9 Endometriosis, unspecified; E03.9 Hypothyroidism, unspecified; M81.0 Age-related osteoporosis without current pathological fracture
CPT/HCPCS: 99283

== ENCOUNTER 2020-04-02 10:18 | Outpatient (CLI) | payer MEDICARE, MEDICAID, SELFPAY ==
[2020-04-02 10:54] LABS: Basophils Percent Auto 0.2 % (0.2-1.2); Eosinophils Absolute Auto 0.4 K/mm3 (0-0.3); Eosinophils Percent Auto 6.2 % (0-4.4); Hematocrit 37.2 % (37.0-47.0); Hemoglobin 12.5 g/dL (12.0-15.0); Immature Granulocyte Absolute 0.01 K/mm3 (0.00-0.031); Immature Granulocyte Percent A 0.2 % (0-0.5); Lymphocytes Absolute Auto 2.39 K/mm3 (0.9-3.2); Lymphocytes Percent Auto 37.7 % (18.3-44.2); Mean Corpuscular HGB Conc 33.6 g/dl (32-36); Mean Corpuscular Hemoglobin 34.7 pg (26-34); Mean Corpuscular Volume 103.3 fl (80-100); Mean Platelet Volume 8.7 fl (7.4-10.4); Monocytes Absolute Auto 0.3 K/mm3 (0.1-0.6); Monocytes Percent Auto 4.9 % (2.6-8.5); Neutrophils Absolute Auto 3.2 K/mm3 (1.3-6.7); Neutrophils Percent Auto 50.8 % (45.5-73.1); Platelet Count Result 180 k/mm3 (150-375); Red Cell Distribution Width 12.3 % (11.5-14.5); White Blood Count 6.3 K/mm3 (4.5-10.0)
[2020-04-02 10:58] LABS: Add Urine Microscopic? YES; Appearance Urine Cloudy (Clear); Bacteria Urine Trace /hpf; Bilirubin Urine Negative (Negative); Blood Urine 2+ (Negative); Color Urine Yellow (Yellow); Glucose Urine UA Negative (Negative); Ketones Urine Negative (Negative); Leukocyte Esterase Ur 3+ LEU/UL (NEGATIVE); Mucus Urine Rare /lpf; Nitrate Urine Negative (Negative); Protein Urine 1+ mg/dL (Negative); Specific Grav Ur 1.011 (1.001-1.035); Squamous Epithelial Cell Urine Many /hpf (Few); Urobilinogen Urine Negative mg/dL (<2.0); WBC Urine >75 /hpf (0-3)
[2020-04-02 11:17] LABS: Alanine Aminotransferase 22 U/L (4-35); Albumin Level 3.9 g/dL (3.5-5.1); Alkaline Phosphatase 108 U/L (38-126); Anion Gap 4 mmol/L (8-16); Aspartate Amino Transferase 22 U/L (14-36); Bilirubin,Total 0.5 mg/dL (0.2-1.3); Blood Urea Nitrogen 16 mg/dL (7-17); Calcium 9.4 mg/dL (8.4-10.2); Carbon Dioxide 26 mmol/L (22-30); Chloride 110 mmol/L (98-107); Cholesterol 211 mg/dL (0-200); Estimated Glomerular Filt Rate 45; Glucose 105 mg/dL (65-105); HDL Direct 46 mg/dL; Sodium 140 mmol/L (137-145); Triglycerides 101 mg/dL (<150)
[2020-04-02 11:28] LABS: LDL Cholesterol Direct 116 mg/dL
== END 2020-04-02 10:19 | disposition home or self-care (01) ==
LOC: ANHLAB 10:22
PROVIDERS: PCP Physician Assistant; Visit Provider Physician Assistant
DX: E03.9 Hypothyroidism, unspecified (principal); E78.2 Mixed hyperlipidemia; Z79.899 Other long term (current) drug therapy
CPT/HCPCS: 36415; 80048; 80061; 80076; 81001; 84439; 84443; 85025

== ENCOUNTER 2020-04-14 10:13 | Outpatient (CLI) | payer MEDICARE, MEDICAID, SELFPAY ==
--- NOTE | ~2020-04-14 | MM_ITS ---
EXAMINATION: MM screening ezequiel BI w cristiane HISTORY: Screening mammogram TECHNIQUE: Craniocaudal and mediolateral oblique 3-D tomosynthesis images were obtained and synthetic 2-D images were generated. CAD analysis was submitted and interpreted. COMPARISON: 02/13/2019 diagnostic left digital mammogram and complete left breast ultrasound 07/07/2018 bilateral digital screening mammogram 10/26/2011 bilateral diagnostic BREAST PARENCHYMAL COMPOSITION: The breasts are heterogeneously dense, which may obscure small masses . FINDINGS: There are numerous (especially on the left) bilateral low-density circumscribed opacities o f variable size, many with halo sign, measuring up to approximately 1.7 cm on the left, 8.4 mm on the right. Occasional bilateral benign calcifications. There is no evidence of suspicious mass, calcification, or architectural distortion to suggest malign getachew in either breast. There has been no suspicious interval change. IMPRESSION: 1. No mammographic evidence of malignancy. 2. Recommend routine screening mammography in one year. BI-RADS Category 2: Benign finding(s). Reviewed, dictated and finalized at location A. NTER
== END 2020-04-14 10:14 | disposition home or self-care (01) ==
LOC: ANHIMG 10:16
PROVIDERS: PCP Physician Assistant; Visit Provider Physician Assistant
DX: Z12.31 Encounter for screening mammogram for malignant neoplasm of breast (principal)
CPT/HCPCS: 77063; 77067

== ENCOUNTER 2020-06-05 22:23 | Emergency (ER) | payer MEDICARE, MEDICAID, SELFPAY ==
[2020-06-05] VITALS (10 sets, daily range): BP systolic 116–137; BP diastolic 61–82; PULSE 67–86; RESP 16–25; TEMP 36.4; O2SAT 96–98
--- NOTE | ~2020-06-05 | XR_ITS ---
EXAMINATION: XR chest 2V DATE: 06/05/2020 23:15 INDICATION: Left lower chest pain TECHNIQUE: PA and lateral views of the chest were obtained. COMPARISON: Chest radiograph dated 01/22/[address] dated 09/09/2018 FINDINGS: The lungs remain clear with no focal airspace opacities, pulmonary edema, pleural effusion or pneumot horax. Heart size is normal. Small bilateral paracardial fat pads. Cholecystectomy clips in right upp er quadrant. IMPRESSION: 1. No acute cardiopulmonary disease. Reviewed, dictated and finalized at location A.
--- NOTE | 2020-06-05 22:30 | ECG_ITS ---
Measurements Intervals [place] Rate: 79 P: 52 [place]: 153 QRS: 21 QRSD: 101 T: 7 QT: 343 QTc: 394 Interpretive Statements SINUS RHYTHM BASELINE ARTIFACT- I, II, III, AVR, AVL, AVF, V2-V6 BORDERLINE ECG Electronically Signed On 06-06-2020 7:32:16 CDT by Mat Munoz D.O.
--- NOTE | 2020-06-05 23:11 | PC.NURSE ---
Patient denies chest pain. No nitro needed at this time.
--- NOTE | 2020-06-05 23:42 | ED.CHESTPAIN ---
HPI - Chest Pain General Chief Complaint: Chest Pain Stated Complaint: chest pain, non radiating Time Seen by Provider: 06/05/20 22:27 Source: patient Mode of arrival: ambulatory Limitations: no limitations History of Present Illness HPI narrative: 65-year-old female History of asthma and COPD no cardiac history Patient reports a 2 or 3-hour history of having sharp precordial pains every 15 minutes or so She says the pains are unprovoked not associated with breathing movement position or activity They are over in the blink of an eye No associated cough fever shortness of breath nausea diaphoresis palpitations Related Data Home Medications Medication Instructions Recorded Confirmed clonazepam 1 mg tablet 1 mg PO DAILY 03/13/19 quetiapine 400 mg tablet 400 mg PO BID 03/13/19 risperidone mg 07/23/19 07/23/19 Allergies Allergy/AdvReac Type Severity Reaction Status Date / Time sulfamethoxazole Allergy Mild ITCHING/KATE Verified 10/25/19 19:19 H codeine Allergy Unknown Itching Verified 10/25/19 19:19 Penicillins Allergy Unknown Itching Verified 10/25/19 19:19 trimethoprim Allergy Unknown Itching Verified 10/25/19 19:19 Review of Systems Review of Systems: All systems reviewed & are unremarkable except as noted in HPI and below Constitutional: Constitutional: Reports no additional constitutional complaints, Denies chills, Denies fever(s) and Denies headache(s) Eyes: Eyes: Reports no additional eye complaints and Denies change in vision ENT: Denies headache(s) and Denies sore throat Cardiovascular: Cardiovascular: Reports chest pain and Denies dyspnea Respiratory: Respiratory: Denies cough and Denies dyspnea Gastrointestinal: Gastrointestinal: Denies abdominal pain, Denies diarrhea and Denies vomiting Genitourinary: Genitourinary: Denies urinary frequency and Denies dysuria Musculoskeletal: Musculoskeletal: Denies deformity, Denies arthralgias, Denies joint swelling and Denies numbness Integumentary/Breasts: Skin/Breast: Denies rash and Denies wounds Neurologic: Denies headache(s), Denies focal weakness and Denies numbness Psychiatric: Psychiatric: Reports no additional psychiatric complaints Endocrine: Endocrine: Reports no additional endocrine complaints Hematologic/Lymphatic: Hematologic/Lymphatic: Reports no additional hematologic/lymphatic complaints Allergic/Immunologic: Allergic/Immunologic: Reports no additional allergic/immunologic complaints PMFSH Past Medical History Medical History (Updated 06/05/20 @ 23:48 by Craig Wright MD) Ankle fracture, left Anxiety Asthma Bipolar 1 disorder Bronchitis COPD (chronic obstructive pulmonary disease) Depression Endometriosis Gall bladder disease Hypothyroid IBS (irritable bowel syndrome) Kidney stones Osteoporosis Pneumonia UTI (urinary tract infection) Surgical History Surgical History H/O bilateral hip replacements H/O tubal ligation Hx of cholecystectomy Family History Family History Sibling Patient's sister is in good health Father Acute myocardial infarction Hypertension Mother Family history of diabetes mellitus in first degree relative Other Family history of blood dyscrasia Social History Social History Smoking status: Never smoker Second hand tobacco smoke exposure: Yes Alcohol intake: never Substance use: never Gender identity (if verbalized by the patient): Female Exam Const: General: cooperative, no acute distress and alert Orientation/consciousness: patient oriented x3 (alert) HENMT: Head: normal to inspection, normocephalic and atraumatic Ears: external ears normal General nose exam: no epistaxis Eyes: Conjunctivae: conjunctivae normal EOM: EOMs intact bilaterally Neck: Neck: normal visual inspection, supple and n
[2020-06-05 23:45] LABS: Basophils Percent Auto 0.3 % (0.2-1.2); Eosinophils Absolute Auto 0.7 K/mm3 (0-0.3); Eosinophils Percent Auto 10.5 % (0-4.4); Hematocrit 37.3 % (37.0-47.0); Hemoglobin 12.1 g/dL (12.0-15.0); Immature Granulocyte Absolute 0.02 K/mm3 (0.00-0.031); Immature Granulocyte Percent A 0.3 % (0-0.5); Lymphocytes Absolute Auto 3.35 K/mm3 (0.9-3.2); Lymphocytes Percent Auto 49.3 % (18.3-44.2); Mean Corpuscular HGB Conc 32.4 g/dl (32-36); Mean Corpuscular Hemoglobin 35.2 pg (26-34); Mean Corpuscular Volume 108.4 fl (80-100); Mean Platelet Volume 9.1 fl (7.4-10.4); Monocytes Absolute Auto 0.5 K/mm3 (0.1-0.6); Monocytes Percent Auto 6.9 % (2.6-8.5); Neutrophils Absolute Auto 2.2 K/mm3 (1.3-6.7); Neutrophils Percent Auto 32.7 % (45.5-73.1); Platelet Count Result 168 k/mm3 (150-375); Red Blood Count 3.44 M/mm3 (4.2-5.4); Red Cell Distribution Width 12.1 % (11.5-14.5); White Blood Count 6.8 K/mm3 (4.5-10.0)
[2020-06-05 23:48] LABS: Alanine Aminotransferase 14 U/L (4-35); Albumin Level 3.8 g/dL (3.5-5.1); Alkaline Phosphatase 99 U/L (38-126); Anion Gap 3 mmol/L (8-16); Aspartate Amino Transferase 24 U/L (14-36); Bilirubin,Total 0.3 mg/dL (0.2-1.3); Blood Urea Nitrogen 22 mg/dL (7-17); Calcium 9.3 mg/dL (8.4-10.2); Carbon Dioxide 30 mmol/L (22-30); Chloride 106 mmol/L (98-107); Estimated CRCL calculation 43 ml/min; Estimated Glomerular Filt Rate 50; Glucose 105 mg/dL (65-105); Potassium 4.3 mmol/L (3.4-5.0); Sodium 139 mmol/L (137-145)
[2020-06-06] VITALS: PULSE 74; RESP 22; O2SAT 97
[2020-06-06 00:01] VITALS: BP 117/66; PULSE 74; RESP 24; O2SAT 97
[2020-06-06 00:02] LABS: NT Pro B Type Natriuretic Pept 63 pg/mL (5-100); Troponin I < 0.012 ng/mL (0.000-0.034)
[2020-06-06 00:15] VITALS: PULSE 76; RESP 20; O2SAT 98
[2020-06-06 00:28] VITALS: BP 122/80; PULSE 67; RESP 23; O2SAT 97
== END 2020-06-06 00:28 | disposition home or self-care (01) ==
PROVIDERS: Emergency Provider Emergency Medicine; PCP Physician Assistant
DX: R07.2 Precordial pain (principal); J44.9 Chronic obstructive pulmonary disease, unspecified; N80.9 Endometriosis, unspecified; E03.9 Hypothyroidism, unspecified; K58.9 Irritable bowel syndrome, unspecified; M81.0 Age-related osteoporosis without current pathological fracture; Z87.440 Personal history of urinary (tract) infections; Z87.442 Personal history of urinary calculi; Z96.643 Presence of artificial hip joint, bilateral; R94.31 Abnormal electrocardiogram [ECG] [EKG]; F31.9 Bipolar disorder, unspecified; F41.9 Anxiety disorder, unspecified
CPT/HCPCS: 36415; 71046; 80053; 83880; 84484; 85025; 93005; 99284

== ENCOUNTER 2020-07-06 11:46 | Emergency (ER) | payer MEDICARE, MEDICAID, SELFPAY ==
[2020-07-06 11:54] VITALS: BP 103/77; PULSE 94; RESP 20; TEMP 36.5; O2SAT 95
[2020-07-06 12:15] LABS: Basophils Percent Auto 0.1 % (0.2-1.2); Eosinophils Absolute Auto 0.3 K/mm3 (0-0.3); Eosinophils Percent Auto 4.6 % (0-4.4); Hemoglobin 13.5 g/dL (12.0-15.0); Immature Granulocyte Absolute 0.02 K/mm3 (0.00-0.031); Immature Granulocyte Percent A 0.3 % (0-0.5); Lymphocytes Absolute Auto 2.36 K/mm3 (0.9-3.2); Lymphocytes Percent Auto 31.9 % (18.3-44.2); Mean Corpuscular HGB Conc 33.8 g/dl (32-36); Mean Corpuscular Hemoglobin 34.6 pg (26-34); Mean Corpuscular Volume 102.6 fl (80-100); Mean Platelet Volume 9.1 fl (7.4-10.4); Monocytes Absolute Auto 0.3 K/mm3 (0.1-0.6); Monocytes Percent Auto 4.3 % (2.6-8.5); Neutrophils Absolute Auto 4.3 K/mm3 (1.3-6.7); Neutrophils Percent Auto 58.8 % (45.5-73.1); Platelet Count Result 157 k/mm3 (150-375); White Blood Count 7.4 K/mm3 (4.5-10.0)
[2020-07-06 12:31] LABS: Alanine Aminotransferase 18 U/L (4-35); Albumin Level 4.2 g/dL (3.5-5.1); Alkaline Phosphatase 115 U/L (38-126); Anion Gap 7 mmol/L (8-16); Aspartate Amino Transferase 22 U/L (14-36); Bilirubin,Total 0.4 mg/dL (0.2-1.3); Blood Urea Nitrogen 19 mg/dL (7-17); Carbon Dioxide 24 mmol/L (22-30); Chloride 109 mmol/L (98-107); Estimated CRCL calculation 43 ml/min; Estimated Glomerular Filt Rate 50; Glucose 108 mg/dL (65-105); Lipase 173 U/L (23-300); Potassium 4.1 mmol/L (3.4-5.0); Sodium 140 mmol/L (137-145)
--- NOTE | 2020-07-06 13:32 | PC.NURSE ---
PT RO THE DESKS STATES SHE IS FEELING BETTER AND HAS MEDICATION AT HOME SHE CAN TAKE. DISCUSSED RISKS OF LEAVING BEFORE SEEING A MD. VERBALIZES UNDERSTANDING
== END 2020-07-07 04:09 | disposition left against medical advice (07) ==
PROVIDERS: Emergency Provider Emergency Medicine; PCP Physician Assistant
DX: R19.7 Diarrhea, unspecified (principal)
CPT/HCPCS: 36415; 80053; 83690; 85025; 99199

== ENCOUNTER 2020-07-07 10:08 | Emergency (ER) | payer MEDICARE, MEDICAID, SELFPAY ==
--- NOTE | ~2020-07-07 | CT_ITS ---
EXAMINATION: CT abdomen pelvis w con DATE: 07/07/2020 11:59 INDICATION: Upper abdominal pain. TECHNIQUE: Computed tomography (CT) of the abdomen and pelvis was performed with 100 mL Omnipaque 350 intravenous contrast. Automated exposure control and iterative reconstruction technique were employe d. The dose-length product was 731.43 mGy-cm. COMPARISON: CT abdomen and pelvis 08/22/2019 FINDINGS: The visualized portions of the lung bases demonstrate mild atelectasis. There is a small pn eumatocele in right middle lobe. No pleural effusion. The heart size is normal. No pericardial effusi on. There is a small sliding hiatal hernia. There are cysts in the liver measuring up to 3.5 cm. Ther e are changes of cholecystectomy. The common duct is dilated to 13 mm without change. The spleen, galindo creas, and adrenal glands are normal. There are cysts in the kidneys measuring up to 3.8 cm on the le ft. There are greater than 10 stones in right kidney measuring up to 7 mm. There are greater than 10 stones in left kidney measuring up to 13 mm. There are no dilated loops of bowel. The appendix is nor mal. There are no pathologically enlarged lymph nodes. There is no free intraperitoneal fluid. There are bilateral total hip arthroplasties. There is mild lumbar spondylosis. IMPRESSION: 1. Chronic mild biliary duct dilatation status post cholecystectomy. 2. Small sliding hiatal hernia. 3. Bilateral nonobstructing kidney stones. Reviewed, dictated and finalized at location A.
[2020-07-07 10:12] VITALS: BP 128/70; PULSE 69; RESP 18; TEMP 36.3; O2SAT 96
[2020-07-07 10:49] LABS: Basophils Percent Auto 0.2 % (0.2-1.2); Eosinophils Absolute Auto 0.3 K/mm3 (0-0.3); Eosinophils Percent Auto 3.3 % (0-4.4); Hematocrit 42.2 % (37.0-47.0); Hemoglobin 14.1 g/dL (12.0-15.0); Immature Granulocyte Absolute 0.02 K/mm3 (0.00-0.031); Immature Granulocyte Percent A 0.2 % (0-0.5); Lymphocytes Absolute Auto 3.33 K/mm3 (0.9-3.2); Lymphocytes Percent Auto 35.1 % (18.3-44.2); Mean Corpuscular HGB Conc 33.4 g/dl (32-36); Mean Corpuscular Hemoglobin 34.7 pg (26-34); Mean Corpuscular Volume 103.9 fl (80-100); Mean Platelet Volume 9.1 fl (7.4-10.4); Monocytes Absolute Auto 0.4 K/mm3 (0.1-0.6); Monocytes Percent Auto 4.3 % (2.6-8.5); Neutrophils Absolute Auto 5.4 K/mm3 (1.3-6.7); Neutrophils Percent Auto 56.9 % (45.5-73.1); Platelet Count Result 171 k/mm3 (150-375); Red Blood Count 4.06 M/mm3 (4.2-5.4); White Blood Count 9.5 K/mm3 (4.5-10.0)
[2020-07-07 10:53] LABS: Add Urine Microscopic? YES; Appearance Urine Cloudy (Clear); Bacteria Urine 2+ /hpf; Bilirubin Urine Negative (Negative); Blood Urine 2+ (Negative); Color Urine Amber (Yellow); Glucose Urine UA Negative (Negative); Ketones Urine Negative (Negative); Leukocyte Esterase Ur 3+ LEU/UL (Negative); Mucus Urine Heavy /lpf; Nitrate Urine Negative (Negative); Protein Urine 1+ mg/dL (Negative); RBC Urine 21-50 /hpf (0-2); Specific Grav Ur 1.018 (1.001-1.035); Squamous Epithelial Cell Urine Many /hpf (Few); WBC Urine >75 /hpf
[2020-07-07 10:58] LABS: Alanine Aminotransferase 57 U/L (4-35); Albumin Level 4.4 g/dL (3.5-5.1); Alkaline Phosphatase 143 U/L (38-126); Anion Gap 9 mmol/L (8-16); Aspartate Amino Transferase 63 U/L (14-36); Bilirubin,Total 0.7 mg/dL (0.2-1.3); Blood Urea Nitrogen 20 mg/dL (7-17); Calcium 10.2 mg/dL (8.4-10.2); Carbon Dioxide 25 mmol/L (22-30); Chloride 108 mmol/L (98-107); Estimated CRCL calculation 43 ml/min; Estimated Glomerular Filt Rate 50; Glucose 109 mg/dL (65-105); Lipase 212 U/L (23-300); Potassium 4.2 mmol/L (3.4-5.0); Sodium 142 mmol/L (137-145)
[2020-07-07 11:15] VITALS: BP 120/71; PULSE 59; RESP 16; O2SAT 96
--- NOTE | 2020-07-07 11:44 | ED.NAVMDI ---
HPI - Nausea/Vomiting/Diarrhea General Chief complaint: Nausea/Vomiting/Diarrhea Stated complaint: diarrhea x 7 days Time Seen by Provider: 07/07/20 11:14 Source: patient Mode of arrival: ambulatory Limitations: no limitations History of Present Illness HPI Narrative: This is a 65-year-old female that presents to the emergency department for diarrhea x 7 days. Also reporting some epigastric discomfort yesterday that has now mostly resolved. Reports she has been using otc medications for her diarrhea with little relief. Denies fever, vomiting, hematochezia, melena, or dysuria. Related Data Home Medications Medication Instructions Recorded Confirmed clonazepam 1 mg tablet 1 mg PO DAILY 03/13/19 quetiapine 400 mg tablet 400 mg PO BID 03/13/19 risperidone mg 07/23/19 07/23/19 Allergies Allergy/AdvReac Type Severity Reaction Status Date / Time sulfamethoxazole Allergy Mild ITCHING/KATE Verified 10/25/19 19:19 H codeine Allergy Unknown Itching Verified 10/25/19 19:19 Penicillins Allergy Unknown Itching Verified 10/25/19 19:19 trimethoprim Allergy Unknown Itching Verified 10/25/19 19:19 Review of Systems Review of Systems: Narrative: CONSTITUTIONAL: Denies fever CARDIOVASCULAR: Denies chest pain RESPIRATORY: Denies dyspnea. GASTROINTESTINAL: Reports abdominal pain, and diarrhea. Denies nausea, vomiting GENITOURINARY: Denies dysuria All systems reviewed & are unremarkable except as noted in HPI and below PMFSH Past Medical History Medical History (Updated 07/07/20 @ 15:04 by Triny Snyder PA-C) Ankle fracture, left Anxiety Asthma Bipolar 1 disorder Bronchitis COPD (chronic obstructive pulmonary disease) Depression Endometriosis Gall bladder disease Hypothyroid IBS (irritable bowel syndrome) Kidney stones Osteoporosis Pneumonia UTI (urinary tract infection) Surgical History Surgical History H/O bilateral hip replacements H/O tubal ligation Hx of cholecystectomy Family History Family History Sibling Patient's sister is in good health Father Acute myocardial infarction Hypertension Mother Family history of diabetes mellitus in first degree relative Other Family history of blood dyscrasia Social History Social History Smoking status: Never smoker Second hand tobacco smoke exposure: Yes Alcohol intake: never Substance use: never Gender identity (if verbalized by the patient): Female Exam Narrative: Exam Narrative: GENERAL: Well-appearing, well-nourished, and in no acute distress. HEAD: Normocephalic, atraumatic. EYES: EOMI. CHEST: Clear to auscultation. No respiratory distress. No wheezes rales or rhonchi HEART: Regular rate and rhythm. No murmur heard. Normal peripheral pulses. ABDOMEN: Soft, nondistended, normal active bowel sounds. Mild tenderness to palpation throughout the abdomen, without guarding. No CVA tenderness EXTREMITIES: Normal range of motion. No edema. SKIN: Warm, dry, no rash. NEURO: No focal deficits. Alert and oriented x3. PSYCH: Normal mood and affect Course Vital Signs Vital signs: Vital Signs Temperature 97.4 F L 07/07/20 10:12 Pulse Rate 69 07/07/20 10:12 Respiratory Rate 18 07/07/20 10:12 Blood Pressure 128/70 07/07/20 10:12 Pulse Oximetry 96 07/07/20 10:12 Temperature 97.4 F L 07/07/20 10:12 Pulse Rate 69 07/07/20 10:12 Respiratory Rate 18 07/07/20 10:12 Blood Pressure 128/70 07/07/20 10:12 Pulse Oximetry 96 07/07/20 10:12 MDM - Nausea/Vomiting/Diarrhea MDM Narrative Medical decision making narrative: Patient presents the emergency department for x1 week. Was also reporting upper abdominal discomfort since yesterday, that had mostly resolved now. She is afebrile and nontoxic-appearing. CBC is without leukocytosis. Metabolic panel with k
--- NOTE | 2020-07-07 11:51 | ECG_ITS ---
Measurements Intervals [place] Rate: 60 P: 57 [place]: 151 QRS: -8 QRSD: 98 T: 14 QT: 408 QTc: 410 Interpretive Statements SINUS RHYTHM VENTRICULAR PREMATURE COMPLEX BASELINE ARTIFACT- II, III, AVR, AVL, AVF, V1, V3-V6 BORDERLINE ECG Electronically Signed On 07-07-2020 13:50:36 CDT by Mat Munoz D.O.
[2020-07-07 12:15] VITALS: BP 137/69; PULSE 57; RESP 18; O2SAT 99
[2020-07-07] MEDS: SODIUM CHLORIDE 0.9% IV 500 ML 999 ML IV CONT (12:19)
[2020-07-07 13:15] VITALS: BP 136/72; PULSE 67; RESP 18; O2SAT 98
[2020-07-07 14:15] VITALS: BP 127/71; PULSE 59; RESP 17; O2SAT 99
[2020-07-07 15:16] VITALS: BP 130/73; PULSE 62; RESP 16; O2SAT 99
== END 2020-07-07 15:16 | disposition home or self-care (01) ==
PROVIDERS: Emergency Provider Emergency Medicine; PCP Physician Assistant
DX: N30.00 Acute cystitis without hematuria (principal); K83.8 Other specified diseases of biliary tract; R19.7 Diarrhea, unspecified; R74.01 Elevation of levels of liver transaminase levels; J44.9 Chronic obstructive pulmonary disease, unspecified; N80.9 Endometriosis, unspecified; E03.9 Hypothyroidism, unspecified; K58.9 Irritable bowel syndrome, unspecified; M81.0 Age-related osteoporosis without current pathological fracture; F41.9 Anxiety disorder, unspecified; F31.9 Bipolar disorder, unspecified; Z87.442 Personal history of urinary calculi; Z87.440 Personal history of urinary (tract) infections; Z96.643 Presence of artificial hip joint, bilateral; K44.9 Diaphragmatic hernia without obstruction or gangrene; N20.0 Calculus of kidney; I49.3 Ventricular premature depolarization
CPT/HCPCS: 36415; 74177; 80053; 81001; 81025; 83690; 85025; 87077; 87086; 87088; 87186; 93005; 96365; 99284; J0696; J7040; Q9967

== ENCOUNTER 2020-08-17 11:29 | Emergency (ER) | payer MEDICARE, MEDICAID, SELFPAY ==
--- NOTE | ~2020-08-17 | US_ITS ---
EXAMINATION: US venous doppler [facility] DATE: 08/17/2020 13:27 INDICATION: Lower limb swelling. TECHNIQUE: Grayscale ultrasound images without and with compression and Doppler ultrasound images of the bilateral lower extremity veins were obtained. COMPARISON: Ultrasound 06/03/2018 FINDINGS: The visualized portions of right common femoral vein, profunda (deep) femoral vein, femoral vein, pop liteal vein, peroneal veins, posterior tibial veins, and greater saphenous vein outflow are patent. The visualized portions of left common femoral vein, profunda femoral vein, femoral vein, popliteal v ein, peroneal veins, posterior tibial veins, and greater saphenous vein outflow are patent. IMPRESSION: 1. No deep venous thrombosis. Reviewed, dictated and finalized at location A.
[2020-08-17 11:31] VITALS: BP 138/75; PULSE 88; RESP 18; TEMP 36.6; O2SAT 98
--- NOTE | 2020-08-17 12:58 | ED.EXTPRO ---
HPI - Extremity Problem General Chief complaint: Extremity Problem,Nontraumatic Stated complaint: edema Time Seen by Provider: 08/17/20 12:36 Source: patient and RN notes reviewed Mode of arrival: ambulatory Limitations: no limitations History of Present Illness HPI Narrative: This is a 65 year old female who presents for evaluation bilateral leg swelling. She noticed swelling to bilateral feet and legs last night. She reports history of swelling to right leg in the past, and she was diagnosed with RLE DVT years ago . She completed a course and Coumadin years ago and she no longer takes it. She denies trauma. She denies chest pain, sob, nausea, vomiting, numbness, tingling or dizziness. Related Data Home Medications Medication Instructions Recorded Confirmed clonazepam 1 mg tablet 1 mg PO DAILY 03/13/19 quetiapine 400 mg tablet 400 mg PO BID 03/13/19 risperidone mg 07/23/19 07/23/19 Allergies Allergy/AdvReac Type Severity Reaction Status Date / Time sulfamethoxazole Allergy Mild ITCHING/KATE Verified 07/17/20 12:44 H codeine Allergy Unknown Itching Verified 07/17/20 12:44 Penicillins Allergy Unknown Itching Verified 07/17/20 12:44 trimethoprim Allergy Unknown Itching Verified 07/17/20 12:44 Review of Systems Review of Systems: All systems reviewed & are unremarkable except as noted in HPI and below PMFSH Past Medical History Medical History (Updated 08/17/20 @ 14:54 by April Eldridge MD) Ankle fracture, left Anxiety Asthma Bipolar 1 disorder Bronchitis COPD (chronic obstructive pulmonary disease) Depression Endometriosis Gall bladder disease Hypothyroid IBS (irritable bowel syndrome) Kidney stones Osteoporosis Pneumonia UTI (urinary tract infection) Surgical History Surgical History H/O bilateral hip replacements H/O tubal ligation Hx of cholecystectomy Family History Family History Sibling Patient's sister is in good health Father Acute myocardial infarction Hypertension Mother Family history of diabetes mellitus in first degree relative Other Family history of blood dyscrasia Social History Social History Smoking status: Never smoker Second hand tobacco smoke exposure: Yes Alcohol intake: never Substance use: never Gender identity (if verbalized by the patient): Female Exam Const: General: no acute distress and alert Orientation/consciousness: patient oriented x3 Eyes: EOM: EOMs intact bilaterally Resp: Effort & Inspection: normal respiratory effort and no retractions Auscultation: clear to auscultation bilaterally Cardio: Rate: regular rate Rhythm: regular rhythm Heart sounds: no murmurs GI: GI Palp: Yes Soft to palpation, No Tenderness to palpation present (GI) and No Guarding due to palpation present (GI) Auscultation: normal bowel sounds Skin: General skin exam: normal color Rashes: no rashes Neuro: General: patient oriented x3 and CN's II-XI intact bilaterally Extrem: Other: bilateral leg edema, right greater than left Psych: Mental Status: mental status grossly normal Affect: normal affect Course Reevaluation(s) Reevaluation #1: I discussed with patient she does not have DVT on ultrasound. LAbs are unremarkable. She will follow up with PCP Date: 08/17/20 Time: 14:52 Vital Signs Vital signs: Vital Signs Temperature 97.8 F 08/17/20 11:31 Pulse Rate 88 08/17/20 11:31 Respiratory Rate 18 08/17/20 11:31 Blood Pressure 138/75 08/17/20 11:31 Pulse Oximetry 98 08/17/20 11:31 Temperature 97.8 F 08/17/20 11:31 Pulse Rate 88 08/17/20 15:35 Respiratory Rate 12 08/17/20 15:35 Blood Pressure 118/81 08/17/20 15:35 Pulse Oximetry 98 08/17/20 15:35 MDM - Extremity (Nontraumatic) Lab Data Attestation: I reviewed the pa
[2020-08-17 13:32] VITALS: BP 136/75; PULSE 76; RESP 12; O2SAT 98
[2020-08-17 13:59] LABS: Basophils Percent Auto 0.1 % (0.2-1.2); Eosinophils Absolute Auto 0.4 K/mm3 (0-0.3); Eosinophils Percent Auto 6.5 % (0-4.4); Hematocrit 38.8 % (37.0-47.0); Hemoglobin 12.3 g/dL (12.0-15.0); Immature Granulocyte Absolute 0.02 K/mm3 (0.00-0.031); Immature Granulocyte Percent A 0.3 % (0-0.5); Lymphocytes Absolute Auto 2.32 K/mm3 (0.9-3.2); Lymphocytes Percent Auto 34.5 % (18.3-44.2); Mean Corpuscular HGB Conc 31.7 g/dl (32-36); Mean Corpuscular Hemoglobin 34.3 pg (26-34); Mean Corpuscular Volume 108.1 fl (80-100); Mean Platelet Volume 8.5 fl (7.4-10.4); Monocytes Absolute Auto 0.3 K/mm3 (0.1-0.6); Monocytes Percent Auto 5.1 % (2.6-8.5); Neutrophils Absolute Auto 3.6 K/mm3 (1.3-6.7); Neutrophils Percent Auto 53.5 % (45.5-73.1); Platelet Count Result 175 k/mm3 (150-375); Red Blood Count 3.59 M/mm3 (4.2-5.4); Red Cell Distribution Width 12.6 % (11.5-14.5); White Blood Count 6.7 K/mm3 (4.5-10.0)
[2020-08-17 14:09] LABS: INR 0.8; Prothrombin Time 11.5 Seconds (11.1-14.7)
[2020-08-17 14:11] LABS: Partial Thromboplastin Time 26.1 SECONDS (22.3-36.8)
[2020-08-17 14:12] LABS: Alanine Aminotransferase 24 U/L (4-35); Albumin Level 4.1 g/dL (3.5-5.1); Alkaline Phosphatase 106 U/L (38-126); Anion Gap 6 mmol/L (8-16); Aspartate Amino Transferase 31 U/L (14-36); Bilirubin,Total 0.4 mg/dL (0.2-1.3); Blood Urea Nitrogen 19 mg/dL (7-17); Calcium 9.9 mg/dL (8.4-10.2); Carbon Dioxide 28 mmol/L (22-30); Chloride 105 mmol/L (98-107); Estimated CRCL calculation 48 ml/min; Estimated Glomerular Filt Rate 55; Glucose 93 mg/dL (65-105); Potassium 4.6 mmol/L (3.4-5.0); Sodium 139 mmol/L (137-145)
[2020-08-17 14:21] LABS: NT Pro B Type Natriuretic Pept 112 pg/mL (5-100)
[2020-08-17 15:35] VITALS: BP 118/81; PULSE 88; RESP 12; O2SAT 98
== END 2020-08-17 15:36 | disposition home or self-care (01) ==
PROVIDERS: Emergency Provider General Practice; PCP Physician Assistant
DX: R60.0 Localized edema (principal); J44.9 Chronic obstructive pulmonary disease, unspecified; N80.9 Endometriosis, unspecified; E03.9 Hypothyroidism, unspecified; M81.0 Age-related osteoporosis without current pathological fracture; F41.9 Anxiety disorder, unspecified; F31.9 Bipolar disorder, unspecified; Z87.01 Personal history of pneumonia (recurrent); Z87.440 Personal history of urinary (tract) infections; Z87.442 Personal history of urinary calculi; Z96.643 Presence of artificial hip joint, bilateral
CPT/HCPCS: 36415; 80053; 83880; 85025; 85610; 85730; 93970; 99284

== ENCOUNTER 2020-09-22 19:47 | Emergency (ER) | payer MEDICARE, MEDICAID, SELFPAY ==
[2020-09-22 19:58] VITALS: BP 146/94; PULSE 86; RESP 18; TEMP 36.6; O2SAT 100
--- NOTE | 2020-09-22 20:06 | ED.WOUNDLAC ---
HPI - Wound/Laceration General Chief Complaint: Wound/Laceration Stated Complaint: Laceration on finger Time Seen by Provider: 09/22/20 20:06 Source: patient and RN notes reviewed Mode of arrival: ambulatory Limitations: no limitations History of Present Illness HPI narrative: 65-year-old female presents concern for laceration to the second digit of the left hand. Reports just prior to arrival she sliced the finger with a steak knife. She denies any decrease strength, range of motion, sensation. Reports she is not up-to-date on her tetanus. She denies intervention. Reports using a towel to stop the bleeding. Extremity Location: Right: hand Related Data Home Medications Medication Instructions Recorded Confirmed clonazepam 1 mg tablet 1 mg PO DAILY 03/13/19 09/22/20 quetiapine 400 mg tablet 400 mg PO BID 03/13/19 09/22/20 risperidone 2 mg PO DAILY 07/23/19 09/22/20 levothyroxine 50 mcg PO DAILY 09/22/20 09/22/20 Allergies Allergy/AdvReac Type Severity Reaction Status Date / Time sulfamethoxazole Allergy Mild ITCHING/KATE Verified 09/22/20 19:49 H codeine Allergy Unknown Itching Verified 09/22/20 19:49 Penicillins Allergy Unknown Itching Verified 09/22/20 19:49 trimethoprim Allergy Unknown Itching Verified 09/22/20 19:49 Review of Systems Review of Systems: CONSTITUTIONAL: Denies malaise, chills, sweats, or fever. SKIN: Reports laceration to the second edge of the left hand MUSCULOSKELETAL: Denies muscle skeletal pain, decrease sensation, strength, range of motion NEUROLOGIC: Denies numbness, weakness All systems reviewed & are unremarkable except as noted in HPI and below PMFSH Past Medical History Medical History (Updated 09/22/20 @ 20:12 by Constance Isbell NP) Ankle fracture, left Anxiety Asthma Bipolar 1 disorder Bronchitis COPD (chronic obstructive pulmonary disease) Depression Endometriosis Gall bladder disease Hypothyroid IBS (irritable bowel syndrome) Kidney stones Osteoporosis Pneumonia UTI (urinary tract infection) Surgical History Surgical History H/O bilateral hip replacements H/O tubal ligation Hx of cholecystectomy Family History Family History Sibling Patient's sister is in good health Father Acute myocardial infarction Hypertension Mother Family history of diabetes mellitus in first degree relative Other Family history of blood dyscrasia Social History Social History Smoking status: Never smoker Second hand tobacco smoke exposure: Yes Alcohol intake: never Substance use: never Gender identity (if verbalized by the patient): Female Comments At time of signature, agree with nursing past medical, surgical, social and family history. There is no relevant family history pertinent to the presenting complaint Exam Narrative: GENERAL: Well-appearing, well-nourished, and in no acute distress. HEAD: Normocephalic EYES: PERRLA, conjunctivae clear NECK: Supple. CHEST: Speaks in full sentences. No respiratory distress. HEART: Regular rate and rhythm. Normal and equal peripheral pulses. EXTREMITIES: Second digit of left hand has normal strength and sensation. 5/5 strength with digit flexion, extension. Range of motion normal. No clubbing, cyanosis, or edema noted. Normal digital cascade with flexion of fingers, median, ulnar and radial nerve intact. Normal sensation of each side of finger. Can perform 'okay' sign, 'cross over finger test of index and middle fingers' and 'thumbs up' sign. No scissoring. Normal thumb opposition. Good capillary refill and radial pulse. Distal capillary refill less than 3 seconds. SKIN: Warn, dry, intact, pink. 1 cm superficial laceration noted to the dorsal aspect of the second digit of the left hand, no current bleeding NEURO: Alert and oriented x3. PSYCH: Normal
[2020-09-22] MEDS: TETANUS,DIPHTHERIA,AC PERTUSSIS ADULT (0.5 ML) BOOSTRIX IM (20:12)
== END 2020-09-22 20:30 | disposition home or self-care (01) ==
PROVIDERS: Emergency Provider Nurse Practitioner; PCP Physician Assistant
DX: S61.211A Laceration without foreign body of left index finger without damage to nail, initial encounter (principal); W26.0XXA Contact with knife, initial encounter; Z23 Encounter for immunization; F41.9 Anxiety disorder, unspecified; J45.909 Unspecified asthma, uncomplicated; J44.9 Chronic obstructive pulmonary disease, unspecified; F32.9 Major depressive disorder, single episode, unspecified; N80.9 Endometriosis, unspecified; E03.9 Hypothyroidism, unspecified; M19.90 Unspecified osteoarthritis, unspecified site; Z96.643 Presence of artificial hip joint, bilateral
CPT/HCPCS: 12001; 90471; 90715; 99212; G0463

== ENCOUNTER 2020-09-25 13:17 | Emergency (ER) | payer MEDICARE, MEDICAID, SELFPAY ==
[2020-09-25 13:40] VITALS: BP 120/77; PULSE 80; RESP 16; TEMP 37.2; O2SAT 100
[2020-09-25 16:46] LABS: Add Urine Microscopic? YES; Appearance Urine Cloudy (Clear); Bacteria Urine Trace /hpf; Bilirubin Urine Negative (Negative); Blood Urine 2+ (Negative); Color Urine Amber (Yellow); Glucose Urine UA Negative (Negative); Ketones Urine Negative (Negative); Leukocyte Esterase Ur 3+ LEU/UL (Negative); Mucus Urine Few /lpf; Nitrate Urine Negative (Negative); Protein Urine 1+ mg/dL (Negative); RBC Urine 21-50 /hpf (0-2); Specific Grav Ur 1.014 (1.001-1.035); Squamous Epithelial Cell Urine Many /hpf (Few); WBC Urine >75 /hpf
[2020-09-25 16:50] VITALS: BP 127/81; PULSE 85; RESP 14; TEMP 36.7; O2SAT 96
--- NOTE | 2020-09-25 17:42 | ED.ABDPAIN ---
HPI - Abdominal Pain General Chief Complaint: Abdominal Pain Stated Complaint: rib pain, nausea Time Seen by Provider: 09/25/20 17:42 History of Present Illness HPI narrative: Patient is a 65-year-old female who comes to the ED today complaining of epigastric pain. Has been constant since around 10 AM this morning. Seems to be worse with palpation. It is not pleuritic. No known alleviating factors. Had loose bowel movement this morning that she describes as diarrhea and took some Imodium which has helped. Admits to nausea. Denies any other symptoms or concerns. Related Data Home Medications Medication Instructions Recorded Confirmed clonazepam 1 mg tablet 1 mg PO DAILY 03/13/19 09/22/20 quetiapine 400 mg tablet 400 mg PO BID 03/13/19 09/22/20 risperidone 2 mg PO DAILY 07/23/19 09/22/20 levothyroxine 50 mcg PO DAILY 09/22/20 09/22/20 Allergies Allergy/AdvReac Type Severity Reaction Status Date / Time sulfamethoxazole Allergy Mild ITCHING/KATE Verified 09/22/20 19:49 H codeine Allergy Unknown Itching Verified 09/22/20 19:49 Penicillins Allergy Unknown Itching Verified 09/22/20 19:49 trimethoprim Allergy Unknown Itching Verified 09/22/20 19:49 Review of Systems Constitutional: Constitutional: Reports as per HPI, Denies fever(s), Denies night sweats and Denies weakness Cardiovascular: Cardiovascular: Denies chest pain, Denies edema, Denies leg edema, Denies dyspnea and Denies orthopnea Respiratory: Respiratory: Denies cough and Denies dyspnea Gastrointestinal: Gastrointestinal: Reports as per HPI, Denies abdominal pain, Denies constipation, Denies diarrhea, Denies nausea and Denies vomiting Musculoskeletal: Musculoskeletal: Denies abnormal gait, Denies back pain, Denies numbness and Denies tingling Neurologic: Denies Abnormal speech present, Denies abnormal gait, Denies numbness, Denies tingling and Denies weakness Psychiatric: Psychiatric: Denies homicidal ideation and Denies suicidal ideation [facility] Past Medical History Medical History (Updated 09/25/20 @ 20:05 by Abdifatah Rodriguez PA-C) Ankle fracture, left Anxiety Asthma Bipolar 1 disorder Bronchitis COPD (chronic obstructive pulmonary disease) Depression Endometriosis Gall bladder disease Hypothyroid IBS (irritable bowel syndrome) Kidney stones Osteoporosis Pneumonia UTI (urinary tract infection) Surgical History Surgical History H/O bilateral hip replacements H/O tubal ligation Hx of cholecystectomy Family History Family History Sibling Patient's sister is in good health Father Acute myocardial infarction Hypertension Mother Family history of diabetes mellitus in first degree relative Other Family history of blood dyscrasia Social History Social History Smoking status: Never smoker Second hand tobacco smoke exposure: Yes Alcohol intake: never Substance use: never Gender identity (if verbalized by the patient): Female Exam Const: General: cooperative, healthy appearing, comfortable, no acute distress, well developed, alert, awake and Physically active Orientation/consciousness: patient oriented x3 HENMT: Head: normal to inspection, normocephalic and atraumatic Ears: external ears normal General nose exam: Normal external nose present Eyes: Pupils: Equal, round and reactive pupils present EOM: EOMs intact bilaterally Neck: Neck: normal visual inspection Chest: Chest palpation & inspection: normal inspection of the chest and no tenderness Resp: Effort & Inspection: normal respiratory effort and able to speak in complete sentences Auscultation: clear to auscultation bilaterally Cardio: Rate: regular rate Rhythm: regular rhythm GI: Inspection: normal to inspection GI Palp: No abdominal tenderness Other: Tender to palpate over epi
--- NOTE | 2020-09-25 18:11 | ECG_ITS ---
Measurements Intervals [place] Rate: 69 P: 40 ME: 160 QRS: 21 QRSD: 98 T: 17 QT: 358 QTc: 385 Interpretive Statements SINUS RHYTHM BASELINE ARTIFACT- I, II, III, AVR, AVL, AVF, V1-V6 NORMAL ECG Electronically Signed On 09-25-2020 20:10:32 CDT by Mat Munoz D.O.
--- NOTE | 2020-09-25 18:56 | PC.NURSE ---
multiple attempts at labs and iv unsuccessful
[2020-09-25 19:33] LABS: Basophils Percent Auto 0.1 % (0.2-1.2); Eosinophils Absolute Auto 0.2 K/mm3 (0-0.3); Eosinophils Percent Auto 2.1 % (0-4.4); Hematocrit 42.6 % (37.0-47.0); Hemoglobin 13.5 g/dL (12.0-15.0); Immature Granulocyte Absolute 0.02 K/mm3 (0.00-0.031); Immature Granulocyte Percent A 0.2 % (0-0.5); Lymphocytes Absolute Auto 2.09 K/mm3 (0.9-3.2); Lymphocytes Percent Auto 24.8 % (18.3-44.2); Mean Corpuscular HGB Conc 31.7 g/dl (32-36); Mean Corpuscular Hemoglobin 34.6 pg (26-34); Mean Corpuscular Volume 109.2 fl (80-100); Mean Platelet Volume 8.4 fl (7.4-10.4); Monocytes Absolute Auto 0.4 K/mm3 (0.1-0.6); Monocytes Percent Auto 4.6 % (2.6-8.5); Neutrophils Absolute Auto 5.8 K/mm3 (1.3-6.7); Neutrophils Percent Auto 68.2 % (45.5-73.1); Platelet Count Result 174 k/mm3 (150-375); Red Cell Distribution Width 12.7 % (11.5-14.5); White Blood Count 8.4 K/mm3 (4.5-10.0)
[2020-09-25] MEDS: FAMOTIDINE 20 MG/2 ML VIAL IV PUSH (19:36)
[2020-09-25] MEDS: KETOROLAC 15 MG/ML VIAL (*BKC) IV PUSH (19:36)
[2020-09-25 19:43] LABS: Alanine Aminotransferase 85 U/L (4-35); Albumin Level 4.5 g/dL (3.5-5.1); Alkaline Phosphatase 134 U/L (38-126); Anion Gap 6 mmol/L (8-16); Aspartate Amino Transferase 105 U/L (14-36); Bilirubin,Total 0.5 mg/dL (0.2-1.3); Blood Urea Nitrogen 19 mg/dL (7-17); Calcium 9.7 mg/dL (8.4-10.2); Carbon Dioxide 29 mmol/L (22-30); Chloride 101 mmol/L (98-107); Estimated CRCL calculation 49 ml/min; Estimated Glomerular Filt Rate 50; Glucose 109 mg/dL (65-110); Lipase 144 U/L (23-300); Potassium 4.5 mmol/L (3.4-5.0); Sodium 136 mmol/L (137-145)
[2020-09-25 19:54] LABS: Troponin I < 0.012 ng/mL (0.000-0.034)
[2020-09-25] MEDS: ONDANSETRON INJ 4 MG/2 ML VIAL IV PUSH (20:46)
[2020-09-25] MEDS: NITROFURANTOIN MONOHYD MACROCR 100 MG CAP PO (20:46)
[2020-09-25 20:54] VITALS: BP 136/78; PULSE 91; RESP 21; O2SAT 97
== END 2020-09-25 20:58 | disposition home or self-care (01) ==
PROVIDERS: Physician Assistant Medical; Emergency Provider Emergency Medicine; PCP Physician Assistant
DX: R10.13 Epigastric pain (principal); J44.9 Chronic obstructive pulmonary disease, unspecified; E03.9 Hypothyroidism, unspecified; K58.9 Irritable bowel syndrome, unspecified; M81.0 Age-related osteoporosis without current pathological fracture; N80.9 Endometriosis, unspecified; F31.9 Bipolar disorder, unspecified; F41.9 Anxiety disorder, unspecified; Z87.01 Personal history of pneumonia (recurrent); Z87.442 Personal history of urinary calculi; Z96.643 Presence of artificial hip joint, bilateral
CPT/HCPCS: 36415; 80053; 81001; 83690; 84484; 85025; 87077; 87086; 87088; 87186; 93005; 96374; 96375; 99284; A9270; J1885; J2405

== ENCOUNTER 2020-11-19 19:32 | Observation (INO) | payer MEDICARE, MEDICAID, SELFPAY ==
--- NOTE | ~2020-11-19 | XR_ITS ---
EXAMINATION: XR chest 2V EXAM DATE: 11/20/2020 01:52 INDICATION: Shortness of breath. TECHNIQUE: Portable AP frontal chest x-ray was obtained. Comparison is made to prior examination from 06/05/2020. FINDINGS: Bibasilar subsegmental atelectasis. The lungs are otherwise clear. There are no pleural ef fusions. The cardiomediastinal silhouette is within normal limits. There is no pneumothorax suspect ed. The bones and soft tissues are unremarkable. IMPRESSION: Bibasilar subsegmental atelectasis. Reviewed, dictated and finalized at location A.
--- NOTE | ~2020-11-19 | CT_ITS ---
EXAMINATION: CT abdomen pelvis w con EXAM DATE: 11/20/2020 02:19 INDICATION: Abdominal pain . Hematemesis, nausea. TECHNIQUE: Spiral CT of the abdomen and pelvis was performed following intravenous injection of 100 m L Omnipaque 350. Axial, coronal and sagittal images of the abdomen and pelvis were reviewed. The do se-length product (DLP) for this examination was 687.18 mGy-cm. The exposure was tailored according to patient size (auto mA exposure control), and iterative reconstruction (ASIR) was used as additiona l dose reduction technique. Comparison is made to prior examination from 07/07/2020. FINDINGS: There are several liver cysts, largest measuring 4 cm. Spleen, adrenal glands and pancreas are unremarkable. Gallbladder is unremarkable. No biliary obstruction. Multiple kidney stones prabhu aterally. The distal aspects of the ureters are obscured by metallic artifact from bilateral hip repl acements, but there is no hydronephrosis. Several left renal cysts up to 3 cm. The uterus is unremark able. The bladder is unremarkable. There is no retroperitoneal or pelvic lymphadenopathy. There is mild scattered arteriosclerotic disease. The appendix is normal. The stomach and small bowel are unremarkable. There is expected amount of c olonic stool. No free intraperitoneal gas. The heart is normal in size. There are no pericardial or pleural effusions. There are bibasilar linear opacities, subsegmental atelectasis. There are no osteoblastic or osteolytic lesions identified. IMPRESSION: 1. No acute intra-abdominal findings. 2. Bilateral nephrolithiasis. Distal aspects of ureters obscured but no hydronephrosis. 3. Hepatic or renal cysts. 4. Bibasilar subsegmental atelectasis. Reviewed, dictated and finalized at location A. IMPRESSION: 1. No acute intra-abdominal findings. 2. Bilateral nephrolithiasis. Distal aspects of ureters obscured but no hydron ephrosis. 3. Hepatic or renal cysts. 4. Bibasilar subsegmental atelectasis.
[2020-11-19 20:03] VITALS: BP 123/72; PULSE 74; RESP 16; TEMP 36.6; O2SAT 97
[2020-11-19 20:50] LABS: Basophils Percent Auto 0.2 % (0.2-1.2); Eosinophils Absolute Auto 0.7 K/mm3 (0-0.3); Eosinophils Percent Auto 10.8 % (0-4.4); Hematocrit 35.2 % (37.0-47.0); Hemoglobin 11.8 g/dL (12.0-15.0); Immature Granulocyte Absolute 0.01 K/mm3 (0.00-0.031); Immature Granulocyte Percent A 0.2 % (0-0.5); Lymphocytes Absolute Auto 2.78 K/mm3 (0.9-3.2); Lymphocytes Percent Auto 42.4 % (18.3-44.2); Mean Corpuscular HGB Conc 33.5 g/dl (32-36); Mean Corpuscular Hemoglobin 35.5 pg (26-34); Mean Platelet Volume 8.9 fl (7.4-10.4); Monocytes Absolute Auto 0.5 K/mm3 (0.1-0.6); Monocytes Percent Auto 7.2 % (2.6-8.5); Neutrophils Absolute Auto 2.6 K/mm3 (1.3-6.7); Neutrophils Percent Auto 39.2 % (45.5-73.1); Platelet Count Result 186 k/mm3 (150-375); Red Blood Count 3.32 M/mm3 (4.2-5.4); Red Cell Distribution Width 12.3 % (11.5-14.5); White Blood Count 6.6 K/mm3 (4.5-10.0)
[2020-11-19 21:01] LABS: Alanine Aminotransferase 18 U/L (4-35); Alkaline Phosphatase 97 U/L (38-126); Anion Gap 5 mmol/L (8-16); Aspartate Amino Transferase 21 U/L (14-36); Bilirubin,Total 0.2 mg/dL (0.2-1.3); Blood Urea Nitrogen 18 mg/dL (7-17); Calcium 9.8 mg/dL (8.4-10.2); Carbon Dioxide 25 mmol/L (22-30); Chloride 109 mmol/L (98-107); Estimated CRCL calculation 48 ml/min; Estimated Glomerular Filt Rate 55; Glucose 97 mg/dL (65-110); Sodium 139 mmol/L (137-145)
[2020-11-19 21:27] LABS: Prothrombin Time 12.6 Seconds (11.1-14.7)
[2020-11-19 21:28] LABS: Partial Thromboplastin Time 26.4 SECONDS (22.3-36.8)
--- NOTE | 2020-11-19 22:45 | ED.GIBLEED ---
HPI - GI Bleed General Chief complaint: GI Bleed Stated complaint: Throwing up blood Time Seen by Provider: 11/19/20 22:44 Source: patient and family Mode of arrival: ambulatory Limitations: no limitations History of Present Illness HPI Narrative: Patient is a 65-year-old female with history of COPD, Asthma, acid reflux, bipolar disorder, type 2 diabetes, presenting for evaluation of abdominal pain. Patient states that she ate some ham that she thinks may have been spoiled yesterday, resulting in nausea and vomiting. Patient reports she has had abdominal pain and mild abdominal distention over the past 24 hours. She reports pain throughout her abdomen with radiation to the bilateral flanks. She denies fever or chills. She reports that she thought there was some blood present in her emesis. She then had a bowel movement and thought there was possibly blood present in her bowel movement as well. She denies dark/tarry/melanotic stool. She reports that yesterday she had a severe asthma exacerbation that she was able to manage at home. She does report rhinorrhea and congestion. SHe denies current chest pain or dyspnea. SHe does also report dysuria and frequency with history of frequent UTIs. Patient's sister is her medical POA and does provide most of the history. Patient is vaccinated for Covid. Related Data Home Medications Medication Instructions Recorded Confirmed clonazepam 1 mg tablet 1 mg PO BID 03/13/19 11/20/20 quetiapine 400 mg tablet 200 mg PO DAILY 03/13/19 11/20/20 risperidone 2 mg PO DAILY 07/23/19 11/20/20 levothyroxine 50 mcg PO DAILY 09/22/20 11/20/20 benztropine 0.5 mg PO DAILY 11/20/20 11/20/20 citalopram 20 mg PO DAILY 11/20/20 11/20/20 quetiapine 50 mg PO DAILY 11/20/20 11/20/20 Allergies Allergy/AdvReac Type Severity Reaction Status Date / Time sulfamethoxazole Allergy Mild ITCHING/KATE Verified 11/20/20 02:42 H codeine Allergy Unknown Itching Verified 11/20/20 02:42 Penicillins Allergy Unknown Itching Verified 11/20/20 02:42 trimethoprim Allergy Unknown Itching Verified 11/20/20 02:42 Review of Systems Review of Systems: CONSTITUTIONAL: Denies fever, chills, or sweats. EYES: Denies visual changes, redness, or discharge. ENT: Reports rhinorrhea, congestion CARDIOVASCULAR: Denies chest pain, palpitations, or edema. RESPIRATORY: Reports mild cough, denies current shortness of breath GASTROINTESTINAL: Reports abdominal pain, nausea, vomiting, bright red blood present in stool. GENITOURINARY: Reports dysuria, denies hematuria. SKIN: Denies rash or itching. MUSCULOSKELETAL: Denies back pain, joint pain, or myalgia. NEUROLOGIC: Denies headache, numbness, or weakness. [facility] Past Medical History Medical History (Updated 11/20/20 @ 05:01 by Felipe Clark MD) Ankle fracture, left Anxiety Asthma Bipolar 1 disorder Bronchitis COPD (chronic obstructive pulmonary disease) Depression Endometriosis Gall bladder disease Hypothyroid IBS (irritable bowel syndrome) Kidney stones Osteoporosis Pneumonia UTI (urinary tract infection) Surgical History Surgical History H/O bilateral hip replacements H/O tubal ligation Hx of cholecystectomy Family History Family History Sibling Patient's sister is in good health Father Acute myocardial infarction Hypertension Mother Family history of diabetes mellitus in first degree relative Other Family history of blood dyscrasia Social History Social History Smoking status: Never smoker Second hand tobacco smoke exposure: Yes Alcohol intake: never Substance use: never Gender identity (if verbalized by the patient): Female Spiritual care concerns: No Exam Narrative: GENERAL: Awake, alert, conversant HEAD: Normocephalic, atraumatic. EYES: PERRLA and EOMI. ENT: Pablo
[2020-11-20] VITALS (10 sets, daily range): BP systolic 125–144; BP diastolic 63–79; PULSE 63–100; RESP 15–22; TEMP 36.1–36.3; O2SAT 96–100; BMI 29.0
[2020-11-20] MEDS: ALBUTEROL SULFATE NEB 2.5 MG/0.5 ML INH 5 MG INHALATION (00:18)
[2020-11-20] MEDS: IPRATROPIUM BR 0.02% INH SOLN 0.5 MG/2.5 ML VIAL 1 MG INHALATION (00:18)
[2020-11-20] MEDS: predniSONE 20 MG TABLET 60 MG PO (00:36)
[2020-11-20 00:49] LABS: Add Urine Microscopic? YES; Appearance Urine Cloudy (Clear); Bacteria Urine Trace /hpf; Bilirubin Urine Negative (Negative); Blood Urine 2+ (Negative); Color Urine Yellow (Yellow); Glucose Urine UA Negative (Negative); Ketones Urine Negative (Negative); Leukocyte Esterase Ur 3+ LEU/UL (Negative); Mucus Urine Rare /lpf; Nitrate Urine Positive (Negative); Protein Urine Negative (Negative); Specific Grav Ur 1.011 (1.001-1.035); Squamous Epithelial Cell Urine Many /hpf (Few); Urobilinogen Urine Negative mg/dL (<2.0); WBC Urine >75 /hpf
--- NOTE | 2020-11-20 02:21 | PM.IMHP ---
H&P: HPI History of Present Illness Date/Time: 11/20/20 02:21 Chief Complaint: NAUSEA AND VOMITING Narrative: THIS IS A 65-YEAR-OLD FEMALE WITH PAST MEDICAL HISTORY SIGNIFICANT FOR COPD/ASTHMA, COGNITIVE DISABILITY, HYPOTHYROIDISM, BIPOLAR DISORDER, OSTEOPOROSIS, KIDNEY STONES, IRRITABLE BOWEL SYNDROME. PATIENT WAS BROUGHT TO THE EMERGENCY ROOM DUE TO NAUSEA AND VOMITING HOT FLASHES AND SWEATS. PRELIMINARY WORKUP WAS SIGNIFICANT FOR URINALYSIS WITH NUMEROUS WBC'S. PATIENT DENIES ANY COUGH OR SPUTUM PRODUCTION OR SHORTNESS OF BREATH S STATES THOUGH THAT SHE HAS BEEN USING HER INHALER BUT DID NOT HELP. Review of Systems Review of Systems: NAUSEA AND VOMITING HOT FLASHES DIAPHORESIS Constitutional: Constitutional: Reports chills, Reports fever(s), Reports malaise and Reports poor appetite Eyes: Eyes: Denies change in vision ENT: Reports system reviewed and no additional complaints, except as documented Cardiovascular: Cardiovascular: Reports no additional cardiovascular complaints Respiratory: Respiratory: Reports no additional respiratory complaints Gastrointestinal: Gastrointestinal: Denies abdominal pain, Reports nausea and Reports vomiting Genitourinary: Genitourinary: Denies dysuria, Denies urinary incontinence and Denies urinary hesitancy Musculoskeletal: Musculoskeletal: Reports no additional musculoskeletal complaints Integumentary/Breasts: Skin/Breast: Reports system reviewed and no additional complaints, except as docu Neurologic: Reports system reviewed and no additional complaints, except as documented Psychiatric: Psychiatric: Reports no additional psychiatric complaints Endocrine: Endocrine: Reports no additional endocrine complaints Hematologic/Lymphatic: Hematologic/Lymphatic: Reports no additional hematologic/lymphatic complaints Allergic/Immunologic: Allergic/Immunologic: Reports no additional allergic/immunologic complaints [facility] Past Medical History Medical History (Updated 11/20/20 @ 05:01 by Felipe Clark MD) Ankle fracture, left Anxiety Asthma Bipolar 1 disorder Bronchitis COPD (chronic obstructive pulmonary disease) Depression Endometriosis Gall bladder disease Hypothyroid IBS (irritable bowel syndrome) Kidney stones Osteoporosis Pneumonia UTI (urinary tract infection) Surgical History Surgical History H/O bilateral hip replacements H/O tubal ligation Hx of cholecystectomy Family History Family History Sibling Patient's sister is in good health Father Acute myocardial infarction Hypertension Mother Family history of diabetes mellitus in first degree relative Other Family history of blood dyscrasia Social History Social History Smoking status: Never smoker Second hand tobacco smoke exposure: Yes Alcohol intake: never Substance use: never Gender identity (if verbalized by the patient): Female Spiritual care concerns: No Meds Home Medications and Allergies Home Medications Medication Instructions Recorded Confirmed Type albuterol sulfate 1 inhalation INHALATION QID #6.7 gm 01/22/19 09/22/20 Rx clonazepam 1 mg tablet 1 mg PO DAILY 03/13/19 09/22/20 History quetiapine 400 mg tablet 400 mg PO BID 03/13/19 09/22/20 History estradiol See Rx Instructions .ROUTE 06/11/19 09/22/20 Rx .COMPLEX #42.5 gm risperidone 2 mg PO DAILY 07/23/19 09/22/20 History tamsulosin [Flomax] 0.4 mg PO DAILY #7 cap 08/22/19 Rx cetirizine [Zyrtec] 5 mg PO DAILY PRN 10 Days #10 10/25/19 09/22/20 Rx tablet fluticasone propionate [Flonase 1 spray NASAL BID 10 Days #9.9 ml 10/25/19 09/22/20 Rx Allergy Relief] levothyroxine 50 mcg PO DAILY 09/22/20 09/22/20 History famotidine [Pepcid] 20 mg PO BID PRN #14 tablet 09/25/20 Rx nitrofurantoin monohyd/m-cryst 100 mg PO Q12H 7 Days #13 cap 09/25/20 Rx [Mac
[2020-11-20] MEDS: NITROFURANTOIN MONOHYD MACROCR 100 MG CAP PO (02:41)
--- NOTE | 2020-11-20 04:09 | ADMGEN ---
This patient, Dakotah Jernigan, was admitted to [facility] Surg Room 302-01. Patient/family oriented to hospital policies and general routines including ID bracelet, bed and alarms, visiting hours, pain management, procedures, bathroom and other care routines, personal items, smoking policy, room service/diet, and visiting hours. Information on how to activate the Rapid Response Team has been discussed. Patient/Family are encouraged to report perceived risks to care and to ask questions if they do not understand what they are told or what they should do.
[2020-11-20] MEDS: SODIUM CHLORIDE 0.9% IV 1,000 ML 125 ML IV CONT ×2 (06:35→10:35)
[2020-11-20 06:43] LABS: Basophils Percent Auto 0.1 % (0.2-1.2); Eosinophils Absolute Auto 0.1 K/mm3 (0-0.3); Eosinophils Percent Auto 1.3 % (0-4.4); Hematocrit 36.7 % (37.0-47.0); Hemoglobin 12.2 g/dL (12.0-15.0); Immature Granulocyte Absolute 0.03 K/mm3 (0.00-0.031); Immature Granulocyte Percent A 0.4 % (0-0.5); Lymphocytes Percent Auto 14.7 % (18.3-44.2); Mean Corpuscular HGB Conc 33.2 g/dl (32-36); Mean Corpuscular Hemoglobin 35.8 pg (26-34); Mean Corpuscular Volume 107.6 fl (80-100); Mean Platelet Volume 8.9 fl (7.4-10.4); Monocytes Absolute Auto 0.1 K/mm3 (0.1-0.6); Monocytes Percent Auto 1.3 % (2.6-8.5); Neutrophils Absolute Auto 5.6 K/mm3 (1.3-6.7); Neutrophils Percent Auto 82.2 % (45.5-73.1); Platelet Count Result 184 k/mm3 (150-375); Red Blood Count 3.41 M/mm3 (4.2-5.4); Red Cell Distribution Width 12.5 % (11.5-14.5); White Blood Count 6.8 K/mm3 (4.5-10.0)
[2020-11-20] MEDS: PANTOPRAZOLE SODIUM IV 40 MG VIAL IV PUSH (10:27)
[2020-11-20] MEDS: ENOXAPARIN 40 MG/0.4 ML SYRINGE SUB-Q (10:27)
[2020-11-20] MEDS: FAMOTIDINE 20 MG TABLET PO ×2 (10:28→17:03)
[2020-11-20] MEDS: risperiDONE 1 MG TABLET 2 MG PO (10:28)
[2020-11-20] MEDS: BENZTROPINE MESYLATE 0.5 MG TABLET PO (10:30)
[2020-11-20] MEDS: CITALOPRAM HYDROBROMIDE 20 MG TABLET PO (10:31)
[2020-11-20] MEDS: clonazePAM (*CRX) 0.5 MG TABLET 1 MG PO ×2 (10:34→17:03)
[2020-11-20] MEDS: QUEtiapine FUMARATE 25 MG TABLET 50 MG PO (11:02)
--- NOTE | 2020-11-20 16:15 | PM.IMPN ---
Progress Note: A&P Assessment and Plan (1) Urinary tract infection: Code(s): N39.0 - Urinary tract infection, site not specified Status: Acute Assessment and Plan: Presented with dysuria and frequency. UA abnormal on presentation Continue IV cefepime which was initiated based on prior urine culture results. She does have a history of frequent UTIs Urine culture pending, await results and tailor antibiotics accordingly (2) Mild nausea and vomiting: Code(s): R11.2 - Nausea with vomiting, unspecified Status: Acute Assessment and Plan: Likely secondary to urinary tract infection. There was a question of possible blood in the emesis prior to presentation, however no emesis today. Discontinue IV fluids. She has been adequately rehydrated and is tolerating p.o. intake Advance to full liquids this evening and regular diet tomorrow for breakfast. Antiemetics available as needed (3) Anemia: Code(s): D64.9 - Anemia, unspecified Status: Acute Assessment and Plan: Very mild decline in hemoglobin at presentation to 11.8. Hemoglobin has normalized today at 12.2 As above, there was the possibility of hematemesis though this was not visualized. Due to this, will obtain stool occult blood test and initiate Protonix. Consider GI consultation if further decline in hemoglobin or subsequent episode of hematemesis No further episodes of bleeding Monitor H&H closely. Repeat CBC tomorrow She does have macrocytosis. Will check B12 and folate. Will also obtain iron panel (4) Bipolar 1 disorder: Code(s): F31.9 - Bipolar disorder, unspecified Status: Acute Assessment and Plan: No acute issues at this time. She is stable. Continue home medications including risperidone, Seroquel, Klonopin, and benztropine (5) Asthma with COPD: Code(s): J44.9 - Chronic obstructive pulmonary disease, unspecified Status: Acute Assessment and Plan: Reportedly had an exacerbation managed at home just prior to presentation. No wheezing at this time. Albuterol inhaler as needed. Pending negative COVID test, she will benefit from DuoNebs. She is not on any maintenance inhalers at home (6) Person under investigation for COVID-19: Code(s): Z20.822 - Contact with and (suspected) exposure to COVID-19 Status: Acute Assessment and Plan: Presented with rhinorrhea and congestion. She has no respiratory symptoms at this time. She is afebrile. She completed Pfizer vaccination in April 2020. COVID-19 test pending, continue isolation precautions while awaiting results She is not a candidate for dexamethasone or remdesivir as she has no oxygen requirements (7) Hypothyroidism: Code(s): E03.9 - Hypothyroidism, unspecified Status: Acute Assessment and Plan: Continue levothyroxine Check TSH Subjective Date/time seen: 11/20/20 16:15 Interval history: Date of service: 11/20/2020 Dakotah Jernigan is a 65-year-old female with a history bipolar disorder, asthma, COPD, hypothyroidism, anxiety, and depression who is seen in follow-up for UTI. She is feeling well today. She has not had any further episodes of emesis. She still feels a little bit nauseous. She denies fevers or chills. She has been tolerating clear liquids today. Denies hematemesis. No bright red bleeding per rectum, no melena. No other bleeding. Denies shortness breath, cough, chest pain, wheezing. No dizziness or lightheadedness. Her mood is stable at this time. At the patient's request, I called her niece to provide updates but she did not answer. Review of Systems Review of Systems: All systems reviewed & are unremarkable except as noted in HPI and below Exam Narrative: Ms. Jernigan is a well-nourished, well-appearing 65-year-old female who is lying semi recumbent in bed. She appears comfortable and is in NARD. Neuro: awake
[2020-11-20 18:09] LABS: SARS-CoV-2 RNA PCR Negative
[2020-11-20] MEDS: QUEtiapine FUMARATE 100 MG TABLET 200 MG PO (20:34)
[2020-11-21] VITALS: BP 132/66; PULSE 82; RESP 18; TEMP 36.6; O2SAT 96
[2020-11-21 04:00] VITALS: BP 125/64; PULSE 74; RESP 18; TEMP 36.1; O2SAT 95
[2020-11-21] MEDS: LEVOTHYROXINE SODIUM 50 MCG TABLET PO (06:02)
[2020-11-21 07:41] LABS: Hematocrit 34.5 % (37.0-47.0); Hemoglobin 11.4 g/dL (12.0-15.0); Mean Corpuscular Hemoglobin 36.4 pg (26-34); Mean Corpuscular Volume 110.2 fl (80-100); Mean Platelet Volume 8.9 fl (7.4-10.4); Platelet Count Result 178 k/mm3 (150-375); Red Blood Count 3.13 M/mm3 (4.2-5.4); Red Cell Distribution Width 12.8 % (11.5-14.5); White Blood Count 7.5 K/mm3 (4.5-10.0)
[2020-11-21 07:57] LABS: Anion Gap 5 mmol/L (8-16); Blood Urea Nitrogen 14 mg/dL (7-17); Calcium 9.5 mg/dL (8.4-10.2); Carbon Dioxide 28 mmol/L (22-30); Chloride 110 mmol/L (98-107); Estimated CRCL calculation 54 ml/min; Estimated Glomerular Filt Rate 55; Glucose 93 mg/dL (65-110); Potassium 3.9 mmol/L (3.4-5.0); Sodium 143 mmol/L (137-145)
[2020-11-21 08:12] LABS: Iron 201 ug/dL (37-170)
[2020-11-21 08:22] LABS: Percent Iron Saturation 91 % (20-50)
[2020-11-21] MEDS: risperiDONE 1 MG TABLET 2 MG PO (08:30)
[2020-11-21] MEDS: clonazePAM (*CRX) 0.5 MG TABLET 1 MG PO (08:30)
[2020-11-21] MEDS: CITALOPRAM HYDROBROMIDE 20 MG TABLET PO (08:30)
[2020-11-21] MEDS: BENZTROPINE MESYLATE 0.5 MG TABLET PO (08:31)
[2020-11-21] MEDS: FLUTICASONE PROPIONATE 0.05% NA SPR 16 GM BTL (*BKC) 1 SPRAY NASAL (08:31)
[2020-11-21] MEDS: FAMOTIDINE 20 MG TABLET PO (08:31)
[2020-11-21] MEDS: PANTOPRAZOLE 40 MG TABLET PO (08:32)
--- NOTE | 2020-11-21 11:50 | PM.DS ---
DS: Admitting Diagnosis Discharge Date 11/21/2020 Admitting Diagnosis Urinary tract infection Anemia Person under investigation DS: Discharge Diagnosis Discharge Diagnosis (1) Urinary tract infection: Code(s): N39.0 - Urinary tract infection, site not specified Status: Acute Assessment and Plan: Presented with dysuria and frequency. UA abnormal on presentation Continue IV cefepime which was initiated based on prior urine culture results. She does have a history of frequent UTIs Urine culture pending, await results and tailor antibiotics accordingly (2) Mild nausea and vomiting: Code(s): R11.2 - Nausea with vomiting, unspecified Status: Acute Assessment and Plan: Likely secondary to urinary tract infection. There was a question of possible blood in the emesis prior to presentation, however no emesis today. Discontinue IV fluids. She has been adequately rehydrated and is tolerating p.o. intake Advance to full liquids this evening and regular diet tomorrow for breakfast. Antiemetics available as needed (3) Anemia: Code(s): D64.9 - Anemia, unspecified Status: Acute Assessment and Plan: Very mild decline in hemoglobin at presentation to 11.8. Hemoglobin has normalized today at 12.2 As above, there was the possibility of hematemesis though this was not visualized. Due to this, will obtain stool occult blood test and initiate Protonix. Consider GI consultation if further decline in hemoglobin or subsequent episode of hematemesis No further episodes of bleeding Monitor H&H closely. Repeat CBC tomorrow She does have macrocytosis. Will check B12 and folate. Will also obtain iron panel (4) Bipolar 1 disorder: Code(s): F31.9 - Bipolar disorder, unspecified Status: Acute Assessment and Plan: No acute issues at this time. She is stable. Continue home medications including risperidone, Seroquel, Klonopin, and benztropine (5) Asthma with COPD: Code(s): J44.9 - Chronic obstructive pulmonary disease, unspecified Status: Acute Assessment and Plan: Reportedly had an exacerbation managed at home just prior to presentation. No wheezing at this time. Albuterol inhaler as needed. Pending negative COVID test, she will benefit from DuoNebs. She is not on any maintenance inhalers at home (6) Person under investigation for COVID-19: Code(s): Z20.822 - Contact with and (suspected) exposure to COVID-19 Status: Acute Assessment and Plan: Presented with rhinorrhea and congestion. She has no respiratory symptoms at this time. She is afebrile. She completed Pfizer vaccination in April 2020. COVID-19 test pending, continue isolation precautions while awaiting results She is not a candidate for dexamethasone or remdesivir as she has no oxygen requirements (7) Hypothyroidism: Code(s): E03.9 - Hypothyroidism, unspecified Status: Acute Assessment and Plan: Continue levothyroxine Check TSH DS: Summary Hospital Course Reason for hospitalization: Nausea and vomiting Hospital Course: This is a 65-year old lady with a past medical history including but not limited to asthma/COPD, cognitive dysfunction, hypothyroidism, bipolar disorder, osteoporosis, kidney stones, irritable bowel syndrome. Patient was brought to the emergency department due to nausea, vomiting, hot flashes and sweats. She has a history of recurrent urinary tract infection, while awaiting definite culture results. She has remained hemodynamically stable throughout her hospital stay. Patient improved clinically on 11/21/2020 and was only complaining of right flank pain at the time of my assessment. She was treated with cefepime. Review of imaging studies. On a CT scan abdomen pelvis performed on 11/20/2020 reveals bilateral nephrolithiasis. Distal aspects of ureters obscured but no hydronephrosis. There are no acute
[2020-11-21] MEDS: QUEtiapine FUMARATE 25 MG TABLET 50 MG PO (14:40)
[2020-11-21 15:14] VITALS: BP 120/72; PULSE 88; RESP 14; TEMP 36.6; O2SAT 98
[2020-11-21 17:18] LABS: Folic Acid 6.5 ng/mL (2.76->20)
== END 2020-11-21 15:30 | disposition home or self-care (01) ==
LOC: ANHED 11-20 02:23 → ANH3MEDSUR 11-20 03:13
PROVIDERS: Physician Assistant; Admitting Provider Internal Medicine; Emergency Provider Emergency Medicine; PCP Physician Assistant; Visit Provider Internal Medicine
DX: N39.0 Urinary tract infection, site not specified (principal); R11.2 Nausea with vomiting, unspecified; D64.9 Anemia, unspecified; E03.9 Hypothyroidism, unspecified; F31.9 Bipolar disorder, unspecified; J44.9 Chronic obstructive pulmonary disease, unspecified; K58.9 Irritable bowel syndrome, unspecified; R10.9 Unspecified abdominal pain; Z23 Encounter for immunization; Z20.822 Contact with and (suspected) exposure to COVID-19
CPT/HCPCS: 36415; 71046; 74177; 80048; 80053; 81001; 82607; 82728; 82746; 83540; 83550; 84443; 85025; 85027; 85610; 85730; 86850; 86900; 86901; 87086; 87147; 87181; 87186; 90471; 90653; 94640; 96361; 96365; 96366; 96372; 96375; 99285; A9270; C9113; C9803; G0008; G0378; J0692; J1650; J7030; J7512; Q9967; U0003; U0005

== ENCOUNTER 2020-11-23 14:20 | Emergency (ER) | payer MEDICARE, MEDICAID, SELFPAY ==
[2020-11-23 14:30] VITALS: BP 122/89; PULSE 92; RESP 20; TEMP 36.4; O2SAT 98
--- NOTE | 2020-11-23 14:39 | ED.URI ---
HPI - URI/Sore Throat General Chief Complaint: Shortness of Breath/Dyspnea Stated Complaint: wheezing/difficulty breathing Time Seen by Provider: 11/23/20 14:25 Source: patient and family Mode of arrival: ambulatory Limitations: no limitations History of Present Illness HPI Narrative: 65-year-old female presents to the [facility] with sister with complaints of shortness of breath, wheezing since being discharged on Tuesday from the hospital. Family member states that she was prescribed a medication that had penicillin in it and because of her severe penicillin allergy did not have it filled. Presents to the [facility] with audible wheezing, 1-2 word sentences, SOB. Patient denies chest pain or abdominal pain. Related Data Home Medications Medication Instructions Recorded Confirmed clonazepam 1 mg tablet 1 mg PO BID 03/13/19 11/20/20 quetiapine 400 mg tablet 200 mg PO DAILY 03/13/19 11/20/20 risperidone 2 mg PO DAILY 07/23/19 11/20/20 levothyroxine 50 mcg PO DAILY 09/22/20 11/20/20 benztropine 0.5 mg PO DAILY 11/20/20 11/20/20 citalopram 20 mg PO DAILY 11/20/20 11/20/20 quetiapine 50 mg PO DAILY 11/20/20 11/20/20 Allergies Allergy/AdvReac Type Severity Reaction Status Date / Time sulfamethoxazole Allergy Mild ITCHING/KATE Verified 11/23/20 14:44 H codeine Allergy Unknown Itching Verified 11/23/20 14:44 Penicillins Allergy Unknown Itching Verified 11/23/20 14:44 trimethoprim Allergy Unknown Itching Verified 11/23/20 14:44 Review of Systems Review of Systems: All systems reviewed & are unremarkable except as noted in HPI and below Constitutional: Constitutional: Reports no additional constitutional complaints, Denies chills and Denies fever(s) Eyes: Eyes: Reports no additional eye complaints ENT: Reports system reviewed and no additional complaints, except as documented Cardiovascular: Cardiovascular: Denies chest pain Respiratory: Respiratory: Reports as per HPI, Reports cough, Reports dyspnea, Reports dyspnea on exertion and Reports wheezing Gastrointestinal: Gastrointestinal: Reports no additional gastrointestinal complaints, Denies abdominal pain, Denies nausea and Denies vomiting Genitourinary: Genitourinary: Reports no additional female genitourinary complaints Musculoskeletal: Musculoskeletal: Reports no additional musculoskeletal complaints Integumentary/Breasts: Skin/Breast: Reports system reviewed and no additional complaints, except as docu Neurologic: Reports system reviewed and no additional complaints, except as documented Psychiatric: Psychiatric: Reports no additional psychiatric complaints Allergic/Immunologic: Allergic/Immunologic: Reports no additional allergic/immunologic complaints [facility] Past Medical History Medical History Ankle fracture, left Anxiety Asthma Bipolar 1 disorder Bronchitis COPD (chronic obstructive pulmonary disease) Depression Endometriosis Gall bladder disease Hypothyroid IBS (irritable bowel syndrome) Kidney stones Osteoporosis Pneumonia UTI (urinary tract infection) Surgical History Surgical History H/O bilateral hip replacements H/O tubal ligation Hx of cholecystectomy Family History Family History Sibling Patient's sister is in good health Father Acute myocardial infarction Hypertension Mother Family history of diabetes mellitus in first degree relative Other Family history of blood dyscrasia Social History Social History Smoking status: Never smoker Second hand tobacco smoke exposure: Yes Alcohol intake: never Substance use: never Gender identity (if verbalized by the patient): Female Spiritual care concerns: No Comments At the time of my signature, I reviewed and agree with the nursing past medical, surgical, social, and fami
--- NOTE | 2020-11-23 14:40 | ECG_ITS ---
Measurements Intervals [place] Rate: 103 P: 64 AL: 145 QRS: 15 QRSD: 86 T: 6 QT: 338 QTc: 443 Interpretive Statements SINUS TACHYCARDIA BASELINE ARTIFACT- I, II, III, AVR, AVL, AVF, V1-V6 BORDERLINE ECG Electronically Signed On 11-23-2020 20:25:45 CDT by Mat Munoz D.O.
== END 2020-11-23 14:45 | disposition short-term general hospital (02) ==
PROVIDERS: Emergency Provider Nurse Practitioner; PCP Physician Assistant
DX: R06.2 Wheezing (principal); R06.00 Dyspnea, unspecified; J44.0 Chronic obstructive pulmonary disease with (acute) lower respiratory infection; N80.9 Endometriosis, unspecified; E03.9 Hypothyroidism, unspecified; M81.0 Age-related osteoporosis without current pathological fracture; F31.9 Bipolar disorder, unspecified; F41.9 Anxiety disorder, unspecified
CPT/HCPCS: 93005; 99215; G0463

== ENCOUNTER 2020-11-23 14:56 | Observation (INO) | payer MEDICARE, MEDICAID, SELFPAY ==
[2020-11-23] VITALS (8 sets, daily range): BP systolic 130–148; BP diastolic 78–91; PULSE 73–85; RESP 18–20; TEMP 36.7–36.8; O2SAT 94–97
--- NOTE | ~2020-11-23 | CT_ITS ---
EXAMINATION: CTA chest PE protocol DATE: 11/23/2020 21:28 INDICATION: Shortness of breath. TECHNIQUE: Computed tomography angiography (CTA) of the chest was performed with 100 mL Omnipaque-350 intravenous contrast timed to evaluate the pulmonary arteries. Coronal maximum intensity projection 3D-reconstructions were created by the technologist. Automated exposure control and iterative reconst ruction technique were employed. The dose-length product was 249.18 mGy-cm. COMPARISON: Chest CT 09/09/2018 FINDINGS: There is mild scarring at the lung apices. There is mild atelectasis bilaterally. No pleura l effusion. The heart size is normal. No pericardial effusion. There is no pulmonary embolus. There i s a 1.7 cm cyst in right kidney. There are multiple stones in right kidney measuring up to 7 mm. Ther e is mild thoracic spondylosis. There is a hemangioma in T11 vertebral body. IMPRESSION: 1. No pulmonary embolus. Reviewed, dictated and finalized at location A. IMPRESSION: 1. No pulmonary embolus.
--- NOTE | ~2020-11-23 | XR_ITS ---
EXAMINATION: XR chest 2V DATE: 11/23/2020 15:36 INDICATION: Dyspnea. TECHNIQUE: Frontal and lateral views of the chest were obtained. COMPARISON: Chest 2 views 11/20/2020, CT abdomen and pelvis 11/20/2020 FINDINGS: There is mild scarring at the lung apices. There is mild atelectasis at the lung bases. No pleural effusion or pneumothorax. The heart size is normal. Surgical clips in the right upper quadran t are likely from cholecystectomy. IMPRESSION: 1. Mild scarring at the lung apices and mild atelectasis at the lung bases. Reviewed, dictated and finalized at location A.
--- NOTE | 2020-11-23 15:03 | ECG_ITS ---
Measurements Intervals [place] Rate: 84 P: 47 LA: 153 QRS: 14 QRSD: 93 T: 37 QT: 346 QTc: 409 Interpretive Statements SINUS RHYTHM BASELINE ARTIFACT- I, II, III, AVR, AVL, AVF NORMAL ECG Electronically Signed On 11-23-2020 20:26:37 CDT by Mat Munoz D.O.
[2020-11-23 15:24] LABS: Basophils Percent Auto 0.2 % (0.2-1.2); Eosinophils Absolute Auto 0.6 K/mm3 (0-0.3); Hematocrit 34.2 % (37.0-47.0); Hemoglobin 11.4 g/dL (12.0-15.0); Immature Granulocyte Absolute 0.01 K/mm3 (0.00-0.031); Immature Granulocyte Percent A 0.2 % (0-0.5); Lymphocytes Absolute Auto 2.45 K/mm3 (0.9-3.2); Lymphocytes Percent Auto 38.5 % (18.3-44.2); Mean Corpuscular HGB Conc 33.3 g/dl (32-36); Mean Corpuscular Hemoglobin 36.2 pg (26-34); Mean Corpuscular Volume 108.6 fl (80-100); Mean Platelet Volume 8.6 fl (7.4-10.4); Monocytes Absolute Auto 0.5 K/mm3 (0.1-0.6); Monocytes Percent Auto 7.1 % (2.6-8.5); Neutrophils Absolute Auto 2.9 K/mm3 (1.3-6.7); Platelet Count Result 168 k/mm3 (150-375); Red Blood Count 3.15 M/mm3 (4.2-5.4); White Blood Count 6.4 K/mm3 (4.5-10.0)
--- NOTE | 2020-11-23 20:29 | ED.SOB ---
HPI - SOB/Dyspnea General Chief Complaint: Shortness of Breath/Dyspnea Stated Complaint: SOB Time Seen by Provider: 11/23/20 20:05 Source: patient and RN notes reviewed Mode of arrival: EMS Limitations: no limitations History of Present Illness HPI Narrative: This is a 65 year old female with history of COPD , frequent UTI who presents for evaluation of shortness of breath. Patient was discharged on Tuesday from [facility] after admission for UTI and COPD exacerbation. She was doing well at home until she developed shortness of breath this morning. She went to [facility] and she was found to have poor air movement with difficulty breathing. She was transferred to ER via ambulance for evaluation. She received a neb treatment in route which improved her breathing status. She reports she feels better. She reports mild cough and wheezing but she denies chest pain. She has nebulizer and albuterol inhaler at home. She was discharged on cefdinir but she did not get prescription filled because she has a penicillin allergy. She denies nausea, vomiting , abdominal pain or fever. She was not discharged with steroids. Related Data Home Medications Medication Instructions Recorded Confirmed clonazepam 1 mg tablet 1 mg PO BID 03/13/19 11/24/20 quetiapine 400 mg tablet 200 mg PO DAILY 03/13/19 11/24/20 risperidone [Risperdal] 2 mg PO DAILY 07/23/19 11/24/20 levothyroxine 50 mcg PO DAILY 09/22/20 11/24/20 benztropine 0.5 mg PO DAILY 11/20/20 11/24/20 citalopram [Celexa] 20 mg PO DAILY 11/20/20 11/24/20 quetiapine 50 mg PO DAILY 11/20/20 11/24/20 Allergies Allergy/AdvReac Type Severity Reaction Status Date / Time sulfamethoxazole Allergy Mild ITCHING/KATE Verified 11/23/20 14:44 H codeine Allergy Unknown Itching Verified 11/23/20 14:44 Penicillins Allergy Unknown Itching Verified 11/23/20 14:44 trimethoprim Allergy Unknown Itching Verified 11/23/20 14:44 Review of Systems Review of Systems: All systems reviewed & are unremarkable except as noted in HPI and below PMFSH Past Medical History Medical History Ankle fracture, left Anxiety Asthma Bipolar 1 disorder Bronchitis COPD (chronic obstructive pulmonary disease) Depression Endometriosis Gall bladder disease Hypothyroid IBS (irritable bowel syndrome) Kidney stones Osteoporosis Pneumonia UTI (urinary tract infection) Surgical History Surgical History H/O bilateral hip replacements H/O tubal ligation Hx of cholecystectomy Family History Family History Sibling Patient's sister is in good health Father Acute myocardial infarction Hypertension Mother Family history of diabetes mellitus in first degree relative Other Family history of blood dyscrasia Social History Social History Smoking status: Never smoker Second hand tobacco smoke exposure: Yes Alcohol intake: never Substance use: never Gender identity (if verbalized by the patient): Female Spiritual care concerns: No Exam Const: General: no acute distress and alert Orientation/consciousness: patient oriented x3 Eyes: EOM: EOMs intact bilaterally Resp: Effort & Inspection: no use of accessory muscles Auscultation: wheezes and breath sounds present Other: mild tachypnea, able to speak in complete sentence, Cardio: Rate: regular rate Rhythm: regular rhythm Heart sounds: no murmurs GI: GI Palp: Yes Soft to palpation, No Tenderness to palpation present (GI) and No Guarding due to palpation present (GI) Auscultation: normal bowel sounds Skin: General skin exam: normal color Rashes: no rashes Neuro: General: patient oriented x3, moves all extremities and CN's II-XI intact bilaterally Extrem: General: normal to inspection Psych: Menta
[2020-11-23 20:37] LABS: Anion Gap 8 mmol/L (8-16); Blood Urea Nitrogen 11 mg/dL (7-17); Calcium 9.5 mg/dL (8.4-10.2); Carbon Dioxide 25 mmol/L (22-30); Chloride 109 mmol/L (98-107); Estimated CRCL calculation 59 ml/min; Estimated Glomerular Filt Rate > 60; Glucose 90 mg/dL (65-110); Potassium 3.8 mmol/L (3.4-5.0); Sodium 142 mmol/L (137-145)
[2020-11-23 20:56] LABS: INR 0.9
[2020-11-23 20:56] LABS: Alveolar/Arterial O2 Gradient 13.7 mmHg; Base Excess ABG 1.5 mEq/l (+/-2.0); Carboxyhemoglobin 0.1 % THb (0-2.0); Fractional Inspired Oxygen 21 %; HCO3 ABG 27.2 mEq/l (22.0-26.0); Methemoglobin ABG 0.3 %THb (0-1.5); Oxygen Content ABG 16.8 %vol (16.0-22.0); Oxygen Saturation ABG 95.4 % (95.0-100.0); Oxyhemoglobin 94.5 % THb (90.0-100.0); PCO2 ABG 47.5 mmHg (35.0-45.0); PO2 ABG 79.2 mmHg (80.0-100.0); PO2 FiO2 Ratio Arterial Blood 3.77 %; Reduced Hemoglobin 5.1 %THb (0-5.0); Total Hemoglobin 12.6 g/dL (12.0-18.0); pH ABG 7.376 (7.350-7.450)
[2020-11-23 20:57] LABS: Device ROOM AIR; Modified Allen's Test Pass; Site Drawn RIGHT RADIAL
[2020-11-23 20:57] LABS: Partial Thromboplastin Time 22.8 SECONDS (22.3-36.8)
[2020-11-23 20:59] LABS: D Dimer 1.83 ug/mL (<0.48)
[2020-11-23] MEDS: IPRATROPIUM BR 0.02% INH SOLN 0.5 MG/2.5 ML VIAL INHALATION ×2 (21:01→23:36)
[2020-11-23] MEDS: ALBUTEROL SULFATE NEB 2.5 MG/0.5 ML INH 5 MG INHALATION ×2 (21:01→23:35)
[2020-11-23] MEDS: predniSONE 20 MG TABLET 60 MG PO (22:30)
[2020-11-24] VITALS (16 sets, daily range): BP systolic 115–152; BP diastolic 72–84; PULSE 74–108; RESP 16–20; TEMP 36.2–36.8; O2SAT 94–96; BMI 28.4
--- NOTE | 2020-11-24 00:05 | PC.NURSE ---
RINAAR faxed to floor at [phone] for bed 248.
--- NOTE | 2020-11-24 01:00 | ADMGEN ---
This patient, Dakotah Jernigan, was admitted to Medical Room 248-. Patient/family oriented to hospital policies and general routines including ID bracelet, bed and alarms, visiting hours, pain management, procedures, bathroom and other care routines, personal items, smoking policy, room service/diet, and visiting hours. Information on how to activate the Rapid Response Team has been discussed. Patient/Family are encouraged to report perceived risks to care and to ask questions if they do not understand what they are told or what they should do.
--- NOTE | 2020-11-24 01:55 | PM.IMHP ---
H&P: HPI History of Present Illness Date/Time: 11/24/20 01:56 Chief Complaint: Shortness of breath Narrative: This is a 65-year-old female with past medical history significant for COPD/asthma, bipolar disorder, generalized anxiety, major depression, osteoporosis, kidney stones, irritable bowel syndrome, bilateral hip replacements, cholecystectomy and tubal ligation. Patient was just recently discharged from [facility] after she was treated for urinary tract infection however patient went to visit her local urgent care after she was having wheezing and shortness of breath at the Urgent Care decision was made to send the patient over to emergency room by ambulance. Patient received breathing treatments in the ED. At the time of my visit patient denied any shortness of breath, cough ,sputum production, chills, rigors, nausea, vomiting, diarrhea, abdominal pain ,chest pain, PND ,orthopnea but what made her come to the emergency room was wheezing and increasingly worsening shortness of breath of roughly 1 day duration. Preliminary workup in emergency room was unrevealing including CTA of the chest and chest xr. Review of Systems Review of Systems: Shortness of breath and wheezing Constitutional: Constitutional: Denies chills, Denies fatigue, Denies fever(s), Denies lethargy, Denies malaise and Denies weakness Eyes: Eyes: Denies change in vision ENT: Denies dysphagia, Denies nasal congestion, Denies nasal discharge, Denies nasal obstruction and Denies odynophagia Cardiovascular: Cardiovascular: Denies edema, Denies irregular heart rhythm, Denies claudication, Denies leg edema, Denies lightheadedness, Denies radiating jaw, neck or arm pain, Denies palpitations, Denies dyspnea, Denies dyspnea on exertion and Denies orthopnea Respiratory: Respiratory: Denies change in phlegm color, Reports cough, Denies excessive phlegm production, Reports dyspnea and Reports wheezing Gastrointestinal: Gastrointestinal: Denies abdominal pain, Denies dyspepsia, Denies heartburn, Denies nausea and Denies vomiting Genitourinary: Genitourinary: Reports no additional female genitourinary complaints Musculoskeletal: Musculoskeletal: Reports no additional musculoskeletal complaints Integumentary/Breasts: Skin/Breast: Reports system reviewed and no additional complaints, except as docu Neurologic: Reports system reviewed and no additional complaints, except as documented Psychiatric: Psychiatric: Reports no additional psychiatric complaints Endocrine: Endocrine: Reports no additional endocrine complaints Hematologic/Lymphatic: Hematologic/Lymphatic: Reports no additional hematologic/lymphatic complaints Allergic/Immunologic: Allergic/Immunologic: Reports no additional allergic/immunologic complaints PENDING SALE TO [facility] Past Medical History Medical History Ankle fracture, left Anxiety Asthma Bipolar 1 disorder Bronchitis COPD (chronic obstructive pulmonary disease) Depression Endometriosis Gall bladder disease Hypothyroid IBS (irritable bowel syndrome) Kidney stones Osteoporosis Pneumonia UTI (urinary tract infection) Surgical History Surgical History H/O bilateral hip replacements H/O tubal ligation Hx of cholecystectomy Family History Family History Sibling Patient's sister is in good health Father Acute myocardial infarction Hypertension Mother Family history of diabetes mellitus in first degree relative Other Family history of blood dyscrasia Social History Social History Smoking status: Never smoker Second hand tobacco smoke exposure: Yes Alcohol intake: never Substance use: never Gender identity (if verbalized by the patient): Female Spiritual care concerns: No Meds Home Medications and Allergies Home Med
[2020-11-24] MEDS: LEVOTHYROXINE SODIUM 50 MCG TABLET PO (06:19)
[2020-11-24] MEDS: CEFDINIR 300 MG CAPSULE PO ×2 (06:19→17:14)
[2020-11-24] MEDS: FLUTICASONE PROPIONATE 0.05% NA SPR 16 GM BTL (*BKC) 1 SPRAY NASAL ×2 (08:39→16:09)
[2020-11-24] MEDS: QUEtiapine FUMARATE 25 MG TABLET 50 MG PO (08:39)
[2020-11-24] MEDS: risperiDONE 1 MG TABLET 2 MG PO (08:40)
[2020-11-24] MEDS: predniSONE 20 MG TABLET 60 MG PO (08:41)
[2020-11-24] MEDS: CITALOPRAM HYDROBROMIDE 20 MG TABLET PO (08:41)
[2020-11-24] MEDS: NITROFURANTOIN MONOHYD MACROCR 100 MG CAP PO ×2 (08:41→20:24)
[2020-11-24] MEDS: clonazePAM (*CRX) 0.5 MG TABLET 1 MG PO ×2 (08:46→16:11)
[2020-11-24] MEDS: IPRATROPIUM BR 0.02% INH SOLN 0.5 MG/2.5 ML VIAL INHALATION ×3 (08:48→20:07)
[2020-11-24] MEDS: ALBUTEROL SULFATE NEB 2.5 MG/0.5 ML INH 5 MG INHALATION ×3 (08:48→20:07)
--- NOTE | 2020-11-24 10:52 | PCNWS ---
Weekly nutritional screen. Patient is tolerating current diet with adequate intake. No weight loss reported. No nutritional needs at this time.
--- NOTE | 2020-11-24 12:41 | PM.IMPN ---
Progress Note: A&P Assessment and Plan (1) Asthma attacks lasting more than 24 hours: Code(s): J45.901 - Unspecified asthma with (acute) exacerbation Status: Acute Assessment and Plan: Acute asthma exacerbation, resolved Saturating well on room air Resume advair BID ALbuterol PRN here and at discharge. Improve inhaler technique Nebulization as needed Taper steroids to 40 mg PO daily for 5 days. Discharge on a 5-day course of prednisone. Supportive care On room air I spoke with her niece Dr Cali Bashir, (Pulmonary MD) at [phone]. She requests update prior to discharging the patient. (2) COPD (chronic obstructive pulmonary disease): Code(s): J44.9 - Chronic obstructive pulmonary disease, unspecified Status: Acute Assessment and Plan: Patient carries a diagnosis of COPD emphysema Issues with inhaler technique, compliance and health literacy Pulmonary consult as an outpatient declined, Advair started inpatient per home regimen (3) Bipolar 1 disorder: Code(s): F31.9 - Bipolar disorder, unspecified Status: Acute Assessment and Plan: Continue home meds Stable Follow-up in outpatient setting (4) Urinary tract infection: Code(s): N39.0 - Urinary tract infection, site not specified Status: Acute Assessment and Plan: Complete course of cefdinir (5) Hypothyroidism: Code(s): E03.9 - Hypothyroidism, unspecified Status: Acute Assessment and Plan: Continue Synthroid Checked TSH: 1.32 Continue to monitor Follow-up in with PCP in the outpatient setting Subjective Date/time seen: Narrative: This is a 65-year-old female with past medical history significant for COPD/asthma, bipolar disorder, generalized anxiety, major depression, osteoporosis, kidney stones, irritable bowel syndrome, bilateral hip replacements, cholecystectomy and tubal ligation. Patient was just recently discharged from [facility] after she was treated for urinary tract infection however patient went to visit her local urgent care after she was having wheezing and shortness of breath at the Urgent Care decision was made to send the patient over to emergency room by ambulance. n the day prior to admission, the patient was dustig at home. She does not smoke, but her boyfriend does in the kitchen while she is in another room. She reports seasonal allergy and rhinitis symptoms including nasal congestion that is improved with the use of flonase. She uses advair and albuterol PRN at home. ON the day prerior to presentation, she was short of breath with minimal effort and used her inhalers. She endorses occasional GERD symptoms but does not recall ever being on PPI. She does not snore. At home she sleeps flat on a coush. There is no history of vaping, or marijuana use. She will follow up with her PCP as an outpatient but declines a pulmonary outpatient evaluation. Patient received breathing treatments in the ED. At the time of my visit patient denied any shortness of breath, cough ,sputum production, chills, rigors, nausea, vomiting, diarrhea, abdominal pain ,chest pain, PND ,orthopnea but what made her come to the emergency room was wheezing and increasingly worsening shortness of breath of roughly 1 day duration. Preliminary workup in emergency room was unrevealing including CTA of the chest and chest xr. 11/24/20 12:41 S: Patient is examined at the bedside. She reports resolution of her shortness of breath and is feeling much better. She was ambulating in her hallways with nursing 's assistance and did not experience any shortness of breath or discomfort. Review of Systems Review of Systems: All systems reviewed & are unremarkable except as noted in HPI and below Constitutional: Constitutional: Reports no additional constitutional complaints Eyes: Eyes: Reports no additional eye complaints ENT: Reports system reviewed and no additional complaints, except as documented Cardiovascu
[2020-11-24] MEDS: FLUTICASONE/SALMETEROL 230-21 MCG INHALER 1 PUFF 2 PUFF INHALATION (20:08)
[2020-11-24] MEDS: BENZTROPINE MESYLATE 0.5 MG TABLET PO (20:23)
[2020-11-24] MEDS: QUEtiapine FUMARATE 100 MG TABLET 200 MG PO (20:23)
[2020-11-25] VITALS (11 sets, daily range): BP systolic 124–143; BP diastolic 70–74; PULSE 82–100; RESP 16–20; TEMP 36.3–36.9; O2SAT 93–98
[2020-11-25] MEDS: ALBUTEROL SULFATE NEB 2.5 MG/0.5 ML INH 5 MG INHALATION ×4 (01:54→20:28)
[2020-11-25] MEDS: IPRATROPIUM BR 0.02% INH SOLN 0.5 MG/2.5 ML VIAL INHALATION ×4 (01:54→20:28)
[2020-11-25] MEDS: CEFDINIR 300 MG CAPSULE PO ×2 (05:33→17:26)
[2020-11-25] MEDS: LEVOTHYROXINE SODIUM 50 MCG TABLET PO (05:33)
[2020-11-25] MEDS: NITROFURANTOIN MONOHYD MACROCR 100 MG CAP PO ×2 (08:35→21:46)
[2020-11-25] MEDS: risperiDONE 1 MG TABLET 2 MG PO (08:35)
[2020-11-25] MEDS: QUEtiapine FUMARATE 25 MG TABLET 50 MG PO (08:35)
[2020-11-25] MEDS: LORATADINE 5 MG TABLET PO (08:35)
[2020-11-25] MEDS: FAMOTIDINE 20 MG TABLET PO (08:36)
[2020-11-25] MEDS: CITALOPRAM HYDROBROMIDE 20 MG TABLET PO (08:36)
[2020-11-25] MEDS: FLUTICASONE PROPIONATE 0.05% NA SPR 16 GM BTL (*BKC) 1 SPRAY NASAL (08:36)
[2020-11-25] MEDS: predniSONE 20 MG TABLET 40 MG PO (08:36)
[2020-11-25] MEDS: clonazePAM (*CRX) 0.5 MG TABLET 1 MG PO ×2 (08:40→17:25)
--- NOTE | 2020-11-25 08:48 | PM.IMPN ---
Progress Note: A&P Assessment and Plan (1) Asthma attacks lasting more than 24 hours: Code(s): J45.901 - Unspecified asthma with (acute) exacerbation Status: Acute Assessment and Plan: Acute asthma exacerbation improving cont breathing treatments today and DC tomorrow Resume advair BID ALbuterol PRN and steroid dose pack Dc tomorrow with Advair, albuterol and steroids (2) COPD (chronic obstructive pulmonary disease): Code(s): J44.9 - Chronic obstructive pulmonary disease, unspecified Status: Acute Assessment and Plan: Patient carries a diagnosis of COPD emphysema Inhalers step up in hospital Advair started inpatient per home regimen (3) Bipolar 1 disorder: Code(s): F31.9 - Bipolar disorder, unspecified Status: Acute Assessment and Plan: Continue home meds Stable Follow-up in outpatient setting (4) Urinary tract infection: Code(s): N39.0 - Urinary tract infection, site not specified Status: Acute Assessment and Plan: Complete course of cefdinir (5) Hypothyroidism: Code(s): E03.9 - Hypothyroidism, unspecified Status: Acute Assessment and Plan: Continue Synthroid Follow-up in with PCP in the outpatient setting Subjective Date/time seen: 11/25/20 08:48 Interval history: 65-year-old female with past medical history significant for COPD/asthma, bipolar disorder, generalized anxiety, major depression, osteoporosis, kidney stones, irritable bowel syndrome, bilateral hip replacements, cholecystectomy and tubal ligation. Patient was just recently discharged from [facility] after she was treated for urinary tract infection however patient went to visit her local urgent care after she was having wheezing and shortness of breath at the Urgent Care decision was made to send the patient over to emergency room by ambulance. Patient received breathing treatments in the ED.From ED notes, Pt admitted with asthma exacerbation Review of Systems Review of Systems: All systems reviewed & are unremarkable except as noted in HPI and below Exam Narrative: Laying in bed Const: General: comfortable, no acute distress, well developed, alert, awake and other (Well-appearing) Nutritional Appearance: average body habitus Orientation/consciousness: patient oriented x3 HENMT: Head: normal to inspection, normocephalic and atraumatic Ears: hearing grossly normal bilaterally General nose exam: Normal external nose present Face and sinus: normal facial exam Mouth: Yes moist mucous membranes Resp: Auscultation: wheezes (few ) Cardio: Rate: regular rate Rhythm: regular rhythm Heart sounds: S1 normal heart sound present, S2 normal heart sound present, no gallops, no murmurs and no rubs GI: Inspection: non-distended Skin: General skin exam: normal color and no rashes or lesions noted Rashes: no rashes Wounds: no wounds Neuro: General: patient oriented x3 and CN's II-XI intact bilaterally Cranial nerves: Yes CN's II-XII intact bilaterally and Yes Equal, round and reactive pupils present Cognition (Neuro): normal cognition Speech: normal speech Gait exam (Neuro): Normal gait present Motor exam (neuro): 5/5 motor strength present throughout Extrem: General: normal to inspection, full ROM, no joint enlargement and no pedal edema Psych: Affect: normal affect Objective Data Vital Signs Vital Signs: Vital Signs - 24 hr 11/24/20 08:49 11/24/20 08:52 11/24/20 08:57 Temperature Pulse Rate 102 H 100 Respiratory Rate 20 20 Blood Pressure Pulse Oximetry 96 11/24/20 13:57 11/24/20 14:30 11/24/20 14:41 Temperature 36.4 C Pulse Rate 102 H 100 Respiratory Rate 18 20 20 Blood Pressure 141/72 H Pulse Oximetry 95 11/24/20 20:00 11/24/20 20:08 11/24/20 20:11 Temperature Pulse Rate 108 H 89 89 Respiratory Rate 16 20 18 Blood Pressure Pulse Oximetry 94 95 11/24/20 20:18 11/24/20 21:13 11/25/20 01:54
[2020-11-25] MEDS: FLUTICASONE/SALMETEROL 230-21 MCG INHALER 1 PUFF 2 PUFF INHALATION ×2 (09:25→20:28)
[2020-11-25] MEDS: BENZTROPINE MESYLATE 0.5 MG TABLET PO (21:45)
[2020-11-25] MEDS: DOCUSATE SODIUM 100 MG CAPSULE PO (21:45)
[2020-11-25] MEDS: QUEtiapine FUMARATE 100 MG TABLET 200 MG PO (21:46)
[2020-11-26 02:29] VITALS: PULSE 84; RESP 20
[2020-11-26] MEDS: ALBUTEROL SULFATE NEB 2.5 MG/0.5 ML INH 5 MG INHALATION ×2 (02:29→08:55)
[2020-11-26] MEDS: IPRATROPIUM BR 0.02% INH SOLN 0.5 MG/2.5 ML VIAL INHALATION ×2 (02:29→08:55)
[2020-11-26 02:36] VITALS: PULSE 84; RESP 20
[2020-11-26 03:41] VITALS: BP 136/76; PULSE 91; RESP 17; TEMP 35.8; O2SAT 94
[2020-11-26] MEDS: LEVOTHYROXINE SODIUM 50 MCG TABLET PO (06:05)
[2020-11-26] MEDS: CEFDINIR 300 MG CAPSULE PO (06:05)
--- NOTE | 2020-11-26 07:24 | PM.DS ---
DS: Admitting Diagnosis Discharge Date 11/26/2020. Admitting Diagnosis Acute asthma exacerbation. DS: Discharge Diagnosis Discharge Diagnosis (1) Asthma attacks lasting more than 24 hours: Code(s): J45.901 - Unspecified asthma with (acute) exacerbation Status: Acute Assessment and Plan: Acute asthma exacerbation improving cont breathing treatments today and DC tomorrow Resume advair BID Albuterol PRN and steroid dose pack Dc tomorrow with Advair, albuterol and steroids (2) COPD (chronic obstructive pulmonary disease): Code(s): J44.9 - Chronic obstructive pulmonary disease, unspecified Status: Acute Assessment and Plan: Patient carries a diagnosis of COPD emphysema Inhalers step up in hospital Advair started inpatient per home regimen (3) Bipolar 1 disorder: Code(s): F31.9 - Bipolar disorder, unspecified Status: Acute Assessment and Plan: Continue home meds Stable Follow-up in outpatient setting (4) Urinary tract infection: Code(s): N39.0 - Urinary tract infection, site not specified Status: Acute Assessment and Plan: Complete course of cefdinir (5) Hypothyroidism: Code(s): E03.9 - Hypothyroidism, unspecified Status: Acute Assessment and Plan: Continue Synthroid Follow-up in with PCP in the outpatient setting DS: Summary Hospital Course Reason for hospitalization: Shortness of breath and wheezing. Hospital Course: This is a 65-year-old ladywith past medical history including but not limited to COPD/asthma, bipolar disorder, generalized anxiety, major depression, osteoporosis, kidney stones, irritable bowel syndrome, bilateral hip replacements, cholecystectomy and tubal ligation. Patient was just recently discharged from [facility] after she was treated for urinary tract infection however patient went to visit her local urgent care after she was having wheezing and shortness of breath at the Urgent Care, decision was made to send the patient over to emergency room by ambulance. On the day prior to admission, she was dusting. In admission, her boyfriend smokes in the house kitchen. During emergency department evaluation and the patient was found to be stable and afebrile with a temperature of 98.2 degree F, a pulse rate of 85, respiratory rate of 18, a blood pressure of 130/78 and a pulse oximetry of 95% on room air. Patient received breathing treatments in the ED. At the time of the hospitalist's evaluation, patient denied any shortness of breath, cough ,sputum production, chills, rigors, nausea, vomiting, diarrhea, abdominal pain ,chest pain, PND ,orthopnea but what made her come to the emergency room was wheezing and increasingly worsening shortness of breath of roughly 1 day duration. Preliminary workup in emergency room was unrevealing including CTA of the chest and chest xray. Her CBC showed a WBC of 6.4, and hemoglobin of 11.4, and hematocrit of 34.2, and a platelet count of 168. There were 9% eosinophils. The patient was managed with eye does show last steroid with prednisone 60 mg p.o. daily. She was restarted on home Advair and albuterol as needed. She continued to improve clinically. She was educated about the importance of secondhand smoking cessation. For treatment of UTI with cefdinir was resumed. Patient was educated about the fact that she is not allergic to cefdinir. She was discharged on a 5 day course of prednisone 40 mg p.o. daily. She will resume her home Advair and albuterol as needed. She would avoid dust in the house. She will instruct her boyfriend not to smoke in the house. She was instructed to follow up with her primary care provider within 1 week of discharge. Status at Discharge Functional status at discharge: uses cane/walker Overall status at discharge: patient is back to baseline Time Spent with Patient Time attestation: Total time spent providing and/or coordinating discharge services: [place]
[2020-11-26 08:55] VITALS: PULSE 83; RESP 20
[2020-11-26] MEDS: FLUTICASONE/SALMETEROL 230-21 MCG INHALER 1 PUFF 2 PUFF INHALATION (09:00)
[2020-11-26 09:03] VITALS: PULSE 85; RESP 20
[2020-11-26] MEDS: predniSONE 20 MG TABLET 40 MG PO (09:14)
[2020-11-26] MEDS: LORATADINE 5 MG TABLET PO (09:15)
[2020-11-26] MEDS: FAMOTIDINE 20 MG TABLET PO (09:15)
[2020-11-26] MEDS: NITROFURANTOIN MONOHYD MACROCR 100 MG CAP PO (09:15)
[2020-11-26] MEDS: QUEtiapine FUMARATE 25 MG TABLET 50 MG PO (09:15)
[2020-11-26] MEDS: risperiDONE 1 MG TABLET 2 MG PO (09:15)
[2020-11-26] MEDS: CITALOPRAM HYDROBROMIDE 20 MG TABLET PO (09:15)
[2020-11-26] MEDS: FLUTICASONE PROPIONATE 0.05% NA SPR 16 GM BTL (*BKC) 1 SPRAY NASAL (09:16)
[2020-11-26] MEDS: clonazePAM (*CRX) 0.5 MG TABLET 1 MG PO (09:17)
--- NOTE | 2020-11-27 09:39 | PC.NURSE ---
Patient family member, Nicolasa, called back regarding antibiotics. Nicolasa states patient was being treated for UTI while hospitalized and she was under the impression that patient should have an antibiotic prescribed for her to finish after discharge. However, no antibiotics were prescribed. I called and spoke to Dr. Woodson in regards to this. Dr. Woodson requested phone number to call Nicolasa and clarify issues.
== END 2020-11-26 14:06 | disposition home or self-care (01) ==
LOC: ANHED 23:26 → ANH2MED 23:46
PROVIDERS: Emergency Medicine; Admitting Provider Internal Medicine; Emergency Provider General Practice; PCP Physician Assistant; Visit Provider Internal Medicine
DX: J45.901 Unspecified asthma with (acute) exacerbation (principal); J43.9 Emphysema, unspecified; N39.0 Urinary tract infection, site not specified; E03.9 Hypothyroidism, unspecified; F31.9 Bipolar disorder, unspecified
CPT/HCPCS: 36415; 36600; 71046; 71275; 80048; 82375; 82805; 83050; 85025; 85380; 85610; 85730; 93005; 94640; 97161; 97165; 99285; A9270; G0378; J7512; Q9967

== ENCOUNTER 2021-03-25 18:11 | Emergency (ER) | payer MEDICARE, MEDICAID, SELFPAY ==
[2021-03-25 18:13] VITALS: BP 113/78; PULSE 87; RESP 16; TEMP 36.2; O2SAT 97
--- NOTE | 2021-03-25 19:37 | ED.GENADULT ---
HPI - General Adult General Chief complaint: Extremity Problem,Nontraumatic Stated complaint: right leg swollen Time Seen by Provider: 03/25/21 19:32 Source: RN notes reviewed History of Present Illness HPI narrative: Patient presents emergency department from home for right leg swelling. Patient states she noticed the swelling of her leg today. She states she does have pain in the calf region with the swelling she denies any known trauma or injury she states that she does have a history of a DVT before in the past numerous years ago but is not on any anticoagulation she denies any pain in the knee or ankle denies any fevers or chills chest pain or shortness of breath denies being on any blood thinners Related Data Home Medications Medication Instructions Recorded Confirmed clonazepam 1 mg tablet 1 mg PO BID 03/13/19 11/24/20 quetiapine 400 mg tablet 200 mg PO DAILY 03/13/19 11/24/20 risperidone [Risperdal] 2 mg PO DAILY 07/23/19 11/24/20 levothyroxine 50 mcg PO DAILY 09/22/20 11/24/20 benztropine 0.5 mg PO DAILY 11/20/20 11/24/20 citalopram [Celexa] 20 mg PO DAILY 11/20/20 11/24/20 quetiapine 50 mg PO DAILY 11/20/20 11/24/20 Allergies Allergy/AdvReac Type Severity Reaction Status Date / Time sulfamethoxazole Allergy Mild ITCHING/KATE Verified 11/23/20 14:44 H codeine Allergy Unknown Itching Verified 11/23/20 14:44 Penicillins Allergy Unknown Itching Verified 11/23/20 14:44 trimethoprim Allergy Unknown Itching Verified 11/23/20 14:44 Review of Systems Review of Systems: Gen.: Denies fevers or chills ENT: Denies congestion Respiratory: Denies shortness of breath or cough CV: Denies chest pain or palpitations GI: Denies abdominal pain nausea, emesis Musculoskeletal: See HPI Neuro: Denies numbness, tingling, weakness or focal weakness Skin: Denies rash Except as documented, all other systems reviewed and negative PMF Past Medical History Medical History Ankle fracture, left Anxiety Asthma Bipolar 1 disorder Bronchitis COPD (chronic obstructive pulmonary disease) Depression Endometriosis Gall bladder disease Hypothyroid IBS (irritable bowel syndrome) Kidney stones Osteoporosis Pneumonia UTI (urinary tract infection) Surgical History Surgical History H/O bilateral hip replacements H/O tubal ligation Hx of cholecystectomy Family History Family History Sibling Patient's sister is in good health Father Acute myocardial infarction Hypertension Mother Family history of diabetes mellitus in first degree relative Other Family history of blood dyscrasia Social History Social History Smoking status: Never smoker Second hand tobacco smoke exposure: Yes Alcohol intake: never Substance use: never Gender identity (if verbalized by the patient): Female Spiritual care concerns: No Exam Narrative: APPEARANCE: No acute distress, nontoxic, resting in bed EYES: EOMI HEENT: Normocephalic, atraumatic, OMM RESPIRATORY: No respiratory distress Clear to auscultation bilaterally with no rhonchi wheezing or rales. CARDIOVASCULAR: Regular rate and rhythm without murmurs rubs or gallops. ABDOMINAL: Soft, nontender MUSCULOSKELETAl: Moves all extremities. No clubbing, cyanosis 3+ edema the right lower extremity the right calf is tender palpation no tenderness of the right knee or ankle full range of motion of both dorsalis pedis pulse 2+ neurovascular intact NEURO: Awake and alert. Following commands, speech normal, no focal deficits SKIN:: Warm, dry. No rashes lesions or abrasions PSYCHIATRIC: Normal affect/mood, Course Course Emergency Course: Called and discussed with Dr. Orona presentation work-up agrees with plan for discharge with ultrasound in a.m. we will follow as an ou
[2021-03-25 19:56] LABS: Basophils Percent Auto 0.3 % (0.2-1.2); Eosinophils Absolute Auto 0.4 K/mm3 (0-0.3); Hematocrit 38.3 % (37.0-47.0); Hemoglobin 12.6 g/dL (12.0-15.0); Immature Granulocyte Absolute 0.02 K/mm3 (0.00-0.031); Immature Granulocyte Percent A 0.3 % (0-0.5); Lymphocytes Absolute Auto 2.98 K/mm3 (0.9-3.2); Lymphocytes Percent Auto 47.3 % (18.3-44.2); Mean Corpuscular HGB Conc 32.9 g/dl (32-36); Mean Corpuscular Hemoglobin 35.8 pg (26-34); Mean Corpuscular Volume 108.8 fl (80-100); Mean Platelet Volume 8.3 fl (7.4-10.4); Monocytes Absolute Auto 0.4 K/mm3 (0.1-0.6); Monocytes Percent Auto 5.7 % (2.6-8.5); Neutrophils Absolute Auto 2.5 K/mm3 (1.3-6.7); Neutrophils Percent Auto 39.4 % (45.5-73.1); Platelet Count Result 156 k/mm3 (150-375); Red Blood Count 3.52 M/mm3 (4.2-5.4); Red Cell Distribution Width 12.3 % (11.5-14.5); White Blood Count 6.3 K/mm3 (4.5-10.0)
[2021-03-25 20:08] LABS: Anion Gap 7 mmol/L (8-16); Blood Urea Nitrogen 17 mg/dL (7-17); Calcium 9.8 mg/dL (8.4-10.2); Carbon Dioxide 28 mmol/L (22-30); Chloride 105 mmol/L (98-107); Estimated CRCL calculation 55 ml/min; Estimated Glomerular Filt Rate 55; Glucose 123 mg/dL (65-110); Potassium 4.1 mmol/L (3.4-5.0); Sodium 140 mmol/L (137-145)
[2021-03-25 21:16] LABS: Partial Thromboplastin Time 26.4 SECONDS (22.3-36.8)
[2021-03-25 21:20] LABS: INR 0.9
[2021-03-25] MEDS: ENOXAPARIN 100 MG/ML SYRINGE 85 MG SUB-Q (22:08)
== END 2021-03-25 22:11 | disposition home or self-care (01) ==
PROVIDERS: Emergency Provider Emergency Medicine; PCP Physician Assistant
DX: M79.661 Pain in right lower leg (principal); F41.9 Anxiety disorder, unspecified; J44.9 Chronic obstructive pulmonary disease, unspecified; F32.9 Major depressive disorder, single episode, unspecified; E03.9 Hypothyroidism, unspecified
CPT/HCPCS: 36415; 80048; 85025; 85610; 85730; 96372; 99283; J1650

== ENCOUNTER 2021-03-26 07:54 | Outpatient (CLI) | payer MEDICARE, MEDICAID, SELFPAY ==
--- NOTE | ~2021-03-26 | US_ITS ---
EXAMINATION: US venous doppler LE RT DATE: 03/26/2021 08:31 INDICATION: Right lower limb pain TECHNIQUE: [place] scale images without and with compression and Doppler images of the right lower extre mity veins were obtained. COMPARISON: 08/17/2020 FINDINGS: The right common femoral vein, profunda femoral vein, femoral vein, popliteal vein, peronea l trunk, posterior tibial veins, and greater saphenous vein are patent. IMPRESSION: 1. Patent right lower extremity veins. No evidence of deep venous thrombosis. Reviewed, dictated and finalized at location A. CE SUPPORT ASSOCIATE
== END 2021-03-26 07:55 | disposition home or self-care (01) ==
LOC: ANHIMG 07:58
PROVIDERS: PCP Physician Assistant; Visit Provider Emergency Medicine
DX: M79.661 Pain in right lower leg (principal)
CPT/HCPCS: 93971

== ENCOUNTER 2021-04-12 15:06 | Inpatient (IN) | payer MEDICARE, MEDICAID, SELFPAY ==
[2021-04-12] VITALS (11 sets, daily range): BP systolic 144–162; BP diastolic 76–91; PULSE 72–122; RESP 14–24; TEMP 36.4–36.6; O2SAT 94–97; BMI 29.6
--- NOTE | ~2021-04-12 | XR_ITS ---
EXAMINATION: XR chest 2V 04/12/2021 15:41 INDICATION: Wheezing and shortness of breath PROCEDURE: PA and lateral views of the chest COMPARISON: No prior studies for comparison. FINDINGS: The lungs are clear. The cardiomediastinal silhouette is within normal limits. There are no pleural effusions. There is no pneumothorax suspected. The lungs are hyperinflated which is cons istent with, but not diagnostic of chronic obstructive pulmonary disease. IMPRESSION: 1: NO ACUTE CARDIOPULMONARY DISEASE. Reviewed, dictated and finalized at location A. ER FORMER
--- NOTE | 2021-04-12 15:19 | ECG_ITS ---
Measurements Intervals [place] Rate: 74 P: 56 WV: 171 QRS: 32 QRSD: 96 T: 29 QT: 355 QTc: 396 Interpretive Statements SINUS RHYTHM NORMAL ECG COMPARED TO ECG 11/23/2020 15:08:24 NO SIGNIFICANT CHANGES Electronically Signed On 04-13-2021 13:53:46 [employer]PER[employer] by Guilherme Avila M.D.
--- NOTE | 2021-04-12 15:35 | ED.SOB ---
HPI - SOB/Dyspnea General Chief Complaint: Shortness of Breath/Dyspnea <Triny Snyder PA-C - Last Filed: 04/12/21 18:38> Stated Complaint: short of breath; wheezing <SAMY Pineda Last Filed: 04/12/21 18:38> Time Seen by Provider: 04/12/21 15:19 <Triny Snyder PA-C - Last Filed: 04/12/21 18:38> Source: patient <SAMY Pineda Last Filed: 04/12/21 18:38> Mode of arrival: ambulatory <SAMY Pineda Last Filed: 04/12/21 18:38> Limitations: no limitations <SAMY Pineda Last Filed: 04/12/21 18:38> History of Present Illness HPI Narrative: This is a 65-year-old female that presents to the emergency department for cough and wheezing noted since yesterday. History of COPD. Reports she has been staying at her boyfriend's house and she does not have her albuterol. She has been feeling short of breath and has had a productive cough. Denies fevers. <SAMY Pineda Last Filed: 04/12/21 18:38> Related Data Home Medications: Home Medications Medication Instructions Recorded Confirmed clonazepam 1 mg tablet 1 mg PO BID 03/13/19 11/24/20 quetiapine 400 mg tablet 200 mg PO DAILY 03/13/19 11/24/20 risperidone [Risperdal] 2 mg PO DAILY 07/23/19 11/24/20 levothyroxine 50 mcg PO DAILY 09/22/20 11/24/20 benztropine 0.5 mg PO DAILY 11/20/20 11/24/20 citalopram [Celexa] 20 mg PO DAILY 11/20/20 11/24/20 quetiapine 50 mg PO DAILY 11/20/20 11/24/20 amoxicillin 500 mg PO Q12H 04/12/21 <SAMY Pineda Last Filed: 04/12/21 18:38> Allergies/Adverse Reactions: Allergies Allergy/AdvReac Type Severity Reaction Status Date / Time sulfamethoxazole Allergy Mild ITCHING/KATE Verified 04/12/21 15:21 H codeine Allergy Unknown Itching Verified 04/12/21 15:21 Penicillins Allergy Unknown Itching Verified 04/12/21 15:21 trimethoprim Allergy Unknown Itching Verified 04/12/21 15:21 <Triny Snyder PA-C - Last Filed: 04/12/21 18:38> Review of Systems Review of Systems: CONSTITUTIONAL: Denies fever CARDIOVASCULAR: Denies chest pain RESPIRATORY: Reports cough and dyspnea. <Triny Snyder PA-C - Last Filed: 04/12/21 18:38> All systems reviewed & are unremarkable except as noted in HPI and below <Triny Snyder PA-C - Last Filed: 04/12/21 18:38> [facility] Past Medical History Medical History: Medical History Ankle fracture, left Anxiety Asthma Bipolar 1 disorder Bronchitis COPD (chronic obstructive pulmonary disease) Depression Endometriosis Gall bladder disease Hypothyroid IBS (irritable bowel syndrome) Kidney stones Osteoporosis Pneumonia UTI (urinary tract infection) <Triny Snyder PA-C - Last Filed: 04/12/21 18:38> Surgical History Surgical History: Surgical History H/O bilateral hip replacements H/O tubal ligation Hx of cholecystectomy <Triny Snyder PA-C - Last Filed: 04/12/21 18:38> Family History Family History: Family History Sibling Patient's sister is in good health Father Acute myocardial infarction Hypertension Mother Family history of diabetes mellitus in first degree relative Other Family history of blood dyscrasia <Triny Snyder PA-C - Last Filed: 04/12/21 18:38> Social History Social History: Social History (Updated 04/12/21 @ 18:11 by Triny Snyder PA-C) Smoking status: Former smoker Second hand tobacco smoke exposure: Yes Alcohol intake: never Substance use: never Gender identity (if verbalized by the patient): Female Spiritual care concerns: No <Triny Snyder PA-C - Last Filed: 04/12/21 18:38> Exam Narrative: GENERAL: Well-appearing, well-nourished, and in no acute distress. HEAD: Normocephalic, atraumatic. EYES: EOMI. ENT: Nares clear, no rhinorrhea or epist
[2021-04-12] MEDS: methylPREDNISolone SOD SUCC 125 MG VIAL IV PUSH (15:56)
[2021-04-12] MEDS: ALBUTEROL SULFATE NEB 2.5 MG/0.5 ML INH 5 MG INHALATION ×2 (16:07→20:00)
[2021-04-12] MEDS: IPRATROPIUM BR 0.02% INH SOLN 0.5 MG/2.5 ML VIAL INHALATION ×2 (16:08→20:00)
[2021-04-12 16:11] LABS: Alanine Aminotransferase 47 U/L (4-35); Albumin Level 4.1 g/dL (3.5-5.1); Alkaline Phosphatase 105 U/L (38-126); Anion Gap 4 mmol/L (8-16); Aspartate Amino Transferase 37 U/L (14-36); Bilirubin,Total 0.4 mg/dL (0.2-1.3); Blood Urea Nitrogen 19 mg/dL (7-17); Calcium 9.2 mg/dL (8.4-10.2); Carbon Dioxide 27 mmol/L (22-30); Chloride 111 mmol/L (98-107); Estimated CRCL calculation 61 ml/min; Estimated Glomerular Filt Rate > 60; Glucose 114 mg/dL (65-110); INR 0.9; Potassium 4.3 mmol/L (3.4-5.0); Prothrombin Time 11.8 Seconds (11.1-14.7); Sodium 142 mmol/L (137-145)
[2021-04-12 16:12] LABS: Partial Thromboplastin Time 26.6 SECONDS (22.3-36.8)
[2021-04-12 16:23] LABS: NT Pro B Type Natriuretic Pept 35 pg/mL (5-100); Troponin I < 0.012 ng/mL (0.000-0.034)
[2021-04-12 16:28] LABS: Basophils Percent Auto 0.2 % (0.2-1.2); Eosinophils Absolute Auto 0.2 K/mm3 (0-0.3); Eosinophils Percent Auto 2.8 % (0-4.4); Hematocrit 39.6 % (37.0-47.0); Hemoglobin 12.9 g/dL (12.0-15.0); Immature Granulocyte Absolute 0.01 K/mm3 (0.00-0.031); Immature Granulocyte Percent A 0.2 % (0-0.5); Lymphocytes Absolute Auto 3.11 K/mm3 (0.9-3.2); Lymphocytes Percent Auto 54.6 % (18.3-44.2); Mean Corpuscular HGB Conc 32.6 g/dl (32-36); Mean Corpuscular Hemoglobin 35.3 pg (26-34); Mean Corpuscular Volume 108.5 fl (80-100); Mean Platelet Volume 8.8 fl (7.4-10.4); Monocytes Absolute Auto 0.3 K/mm3 (0.1-0.6); Neutrophils Absolute Auto 2.1 K/mm3 (1.3-6.7); Neutrophils Percent Auto 36.2 % (45.5-73.1); Platelet Count Result 147 k/mm3 (150-375); Red Blood Count 3.65 M/mm3 (4.2-5.4); Red Cell Distribution Width 12.6 % (11.5-14.5); White Blood Count 5.7 K/mm3 (4.5-10.0)
[2021-04-12] MEDS: IPRATROPIUM BR 0.02% INH SOLN 0.5 MG/2.5 ML VIAL 1.5 MG INHALATION (16:43)
[2021-04-12] MEDS: ALBUTEROL SULFATE NEB 2.5 MG/0.5 ML INH 15 MG INHALATION (16:44)
--- NOTE | 2021-04-12 19:15 | PM.IMHP ---
H&P: HPI History of Present Illness Date/Time: 04/12/21 19:15 Chief Complaint: Shortness of breath. Narrative: This is a 65-year-old female with chronic obstructive pulmonary disease, asthma, hypothyroidism, depression, anxiety, and bipolar disorder who presented to the emergency department for evaluation of shortness of breath. The patient has been feeling increasingly short of breath over the past couple of days and she also endorses wheezing and cough foot has occasionally been productive of thick, white phlegm. Typically she would use her rescue inhaler with wheezing however she has been staying with her boyfriend and does not have access to her inhaler. Additionally she tells me that her boyfriend smokes quite a bit including in the home when she is staying with him. She received a nebulizer and steroids in the emergency department however she is still quite tight and wheezy and she is being admitted in this setting. She reports possible subjective fever couple of days ago but she denies chills and sweats. She has perhaps some mild rhinorrhea but nothing significant. No headache, neck ache, sore throat, chest pain, nausea, vomiting, or diarrhea. No sick contacts. Review of Systems Review of Systems: Twelve systems were reviewed and are negative except for as per HPI. [facility] Past Medical History Medical History (Updated 04/12/21 @ 22:03 by Martine Cotton PA-C) Ankle fracture, left Anxiety Asthma Bipolar 1 disorder Chronic obstructive pulmonary disease Depression Endometriosis Hypothyroid Irritable bowel syndrome Kidney stones Osteoporosis Pneumonia Surgical History Surgical History (Updated 04/12/21 @ 21:58 by Martine Cotton PA-C) History of bilateral hip replacements History of cholecystectomy History of tubal ligation Family History Family History Sibling Patient's sister is in good health Father Acute myocardial infarction Hypertension Mother Family history of diabetes mellitus in first degree relative Other Family history of blood dyscrasia Social History Social History (Updated 04/12/21 @ 22:06 by Martine Cotton PA-C) Social History: Surrogate decision maker: Mega Araya, niece. Code status: Full code. Smoking status: Former smoker Second hand tobacco smoke exposure: Yes Additional smoking assessment comments: Quit at the age of 34. Boyfriend is a heavy smoker. Alcohol intake: never Substance use: never Additional living arrangements comments: The patient lives in her own apartment but stays with her boyfriend several days a week. Additional occupation/education comments: Disabled. Meds Home Medications and Allergies Home Medications Medication Instructions Recorded Confirmed Type clonazepam 1 mg tablet 1 mg PO BID 03/13/19 04/12/21 History risperidone [Risperdal] 2 mg PO HS 07/23/19 04/12/21 History cetirizine [Zyrtec] 5 mg PO DAILY PRN 10 Days #10 10/25/19 04/12/21 Rx tablet levothyroxine 50 mcg PO DAILY 09/22/20 04/12/21 History benztropine 0.5 mg PO DAILY 11/20/20 04/12/21 History citalopram [Celexa] 20 mg PO DAILY 11/20/20 04/12/21 History quetiapine 50 mg PO DAILY 11/20/20 04/12/21 History fluticasone propion-salmeterol 2 puff INHALATION Q12HRT 30 Days 11/26/20 04/12/21 Rx [Advair HFA] #250 mcg quetiapine 300 mg PO HS 04/12/21 04/12/21 History Allergies Allergy/AdvReac Type Severity Reaction Status Date / Time sulfamethoxazole Allergy Mild ITCHING/KATE Verified 04/12/21 15:21 H codeine Allergy Unknown Itching Verified 04/12/21 15:21 Penicillins Allergy Unknown Itching Verified 04/12/21 15:21 trimethoprim Allergy Unknown Itching Verified 04/12/21 15:21 Vital Signs Vital Signs - 24 hr 04/12/21 15:08 04/12/21 15:29 04/12/21 15:35 Temperature 97.8 F Pulse Rate 85 75 Respiratory Rate 18 22 H Blood Pressure 159/91 H 161/87 H Pulse Oximetry 96 97 97 04/12/21
--- NOTE | 2021-04-12 21:13 | ADMGEN ---
This patient, Dakotah Jernigan, was admitted to [facility] Surg Room 307-01. Patient/family oriented to hospital policies and general routines including ID bracelet, bed and alarms, visiting hours, pain management, procedures, bathroom and other care routines, personal items, smoking policy, room service/diet, and visiting hours. Information on how to activate the Rapid Response Team has been discussed. Patient/Family are encouraged to report perceived risks to care and to ask questions if they do not understand what they are told or what they should do.
[2021-04-12] MEDS: risperiDONE 1 MG TABLET 2 MG PO (22:54)
[2021-04-12] MEDS: QUEtiapine FUMARATE 100 MG TABLET 300 MG PO (22:55)
[2021-04-12] MEDS: methylPREDNISolone SOD SUCC 125 MG VIAL 60 MG IV PUSH (23:58)
[2021-04-13] VITALS (12 sets, daily range): BP systolic 137–151; BP diastolic 66–80; PULSE 96–115; RESP 18–20; TEMP 36.3–36.6; O2SAT 93–94
[2021-04-13] MEDS: ALBUTEROL SULFATE NEB 2.5 MG/0.5 ML INH 5 MG INHALATION ×4 (02:00→20:00)
[2021-04-13] MEDS: IPRATROPIUM BR 0.02% INH SOLN 0.5 MG/2.5 ML VIAL INHALATION ×4 (02:00→20:00)
[2021-04-13 05:40] LABS: Hematocrit 36.8 % (37.0-47.0); Mean Corpuscular HGB Conc 32.6 g/dl (32-36); Mean Corpuscular Hemoglobin 35.9 pg (26-34); Mean Corpuscular Volume 110.2 fl (80-100); Mean Platelet Volume 8.9 fl (7.4-10.4); Platelet Count Result 164 k/mm3 (150-375); Red Blood Count 3.34 M/mm3 (4.2-5.4); Red Cell Distribution Width 12.7 % (11.5-14.5); White Blood Count 3.7 K/mm3 (4.5-10.0)
[2021-04-13] MEDS: methylPREDNISolone SOD SUCC 125 MG VIAL 60 MG IV PUSH ×3 (05:41→16:02)
[2021-04-13] MEDS: LEVOTHYROXINE SODIUM 50 MCG TABLET PO (05:41)
[2021-04-13 06:40] LABS: Thyroid Stimulating Hormone Reflex 0.248 uIU/mL (0.465-4.68)
[2021-04-13 06:50] LABS: Alanine Aminotransferase 39 U/L (4-35); Albumin Level 3.9 g/dL (3.5-5.1); Alkaline Phosphatase 78 U/L (38-126); Anion Gap 9 mmol/L (8-16); Aspartate Amino Transferase 32 U/L (14-36); Bilirubin,Total 0.3 mg/dL (0.2-1.3); Blood Urea Nitrogen 15 mg/dL (7-17); Calcium 9.1 mg/dL (8.4-10.2); Carbon Dioxide 21 mmol/L (22-30); Chloride 111 mmol/L (98-107); Estimated CRCL calculation 68 ml/min; Estimated Glomerular Filt Rate > 60; Glucose 185 mg/dL (65-110); Magnesium 1.5 mg/dL (1.6-2.3); Sodium 141 mmol/L (137-145)
[2021-04-13 08:02] LABS: Folic Acid 9.2 ng/mL (2.76->20)
[2021-04-13 08:05] LABS: Free T4 Free Thyroxine Reflex 0.81 ng/dL (0.78-2.19)
[2021-04-13] MEDS: FLUTICASONE/SALMETEROL 230-21 MCG INHALER 1 PUFF 2 PUFF INHALATION ×2 (08:10→20:00)
[2021-04-13] MEDS: ENOXAPARIN 40 MG/0.4 ML SYRINGE SUB-Q (08:19)
[2021-04-13] MEDS: CITALOPRAM HYDROBROMIDE 20 MG TABLET PO (08:19)
[2021-04-13] MEDS: QUEtiapine FUMARATE 25 MG TABLET 50 MG PO (08:20)
[2021-04-13] MEDS: BENZTROPINE MESYLATE 0.5 MG TABLET PO (08:20)
[2021-04-13] MEDS: clonazePAM (*CRX) 0.5 MG TABLET 1 MG PO ×2 (08:21→16:02)
[2021-04-13 10:06] LABS: Total Triiodothyronine (T3) 0.74 NG/ML (0.97-1.69)
--- NOTE | 2021-04-13 14:59 | PC.NURSE ---
pt able to ambulate in hallway without sob this shift.
--- NOTE | 2021-04-13 15:13 | PM.IMPN ---
Progress Note: A&P Assessment and Plan (1) Acute exacerbation of chronic obstructive pulmonary disease: Code(s): J44.1 - Chronic obstructive pulmonary disease with (acute) exacerbation Status: Acute Assessment and Plan: Likely precipitated by cigarette smoke exposure while staying at her boyfriend's house. Continue IV Solu-Medrol. Wean to 60 mg q12h and plan to transition to PO Prednisone tomorrow if continued improvement Scheduled bronchodilators q6h No indication for antibiotics at this time; CXR unremarkable Continue home Advair (2) Psychiatric illness: Code(s): F99 - Mental disorder, not otherwise specified Status: Acute Assessment and Plan: No acute issues. Continue benztropine, citalopram, clonazepam, quetiapine, and risperidone. (3) Hypothyroidism: Code(s): E03.9 - Hypothyroidism, unspecified Status: Acute Assessment and Plan: TSH slightly decreased with normal T4 but low T3 Continue levothyroxine at current dose She will need outpatient reflex TSH in 4 weeks (4) Hypomagnesemia: Code(s): E83.42 - Hypomagnesemia Status: Acute Assessment and Plan: Mag is 1.5 Administer 2 g IV mag sulfate Monitor magnesium levels Subjective Date/time seen: 04/13/21 15:13 Interval history: Date of service: 04/13/2021 Dakotah Jernigan is a 65-year-old female with a history of COPD, asthma, hypothyroidism, depression, anxiety, and bipolar disorder who is seen in follow-up for COPD exacerbation. She is feeling better today. She denies any more wheezing. She states overall she feels well. She is able to breathe better. She states she is now able to walk and talk and eat which she notes is significant improvement. She denies nausea, vomiting, fever, chills, dizziness, lightheadedness. She states she really needs to go home tomorrow so she can attend a court case for her boyfriend. Review of Systems Review of Systems: All systems reviewed & are unremarkable except as noted in HPI and below Exam Narrative: General: well-nourished, well-appearing 65-year-old male, sitting up in bed, comfortable, NARD Neuro: awake, alert and oriented x4, speech clear, no focal neuro deficits noted HEENMT: normocephalic, atraumatic, EOMI, sclerae anicteric, moist oral mucosa Respiratory: Diminished breath sounds bilaterally with faint bilateral inspiratory wheezes, nonlabored breathing Cardio: regular rate, regular rhythm with S1-S2 Abdomen: nondistended, normoactive bowel sounds, soft, nontender to palpation Extremities: no edema, erythema, or tenderness to palpation, DP pulses 2+ bilaterally Skin: no rashes or lesions, warm and dry Psych: appropriate mood and affect, judgment and insight intact Objective Data Vital Signs Vital Signs: Vital Signs - 24 hr 04/12/21 15:29 04/12/21 15:35 04/12/21 16:08 Temperature Pulse Rate 75 72 Respiratory Rate 22 H 22 H Blood Pressure 161/87 H Pulse Oximetry 97 97 04/12/21 16:17 04/12/21 16:45 04/12/21 18:05 Temperature Pulse Rate 78 75 100 Respiratory Rate 14 19 24 H Blood Pressure Pulse Oximetry 04/12/21 18:38 04/12/21 18:46 04/12/21 20:00 Temperature Pulse Rate 108 H 114 H 122 H Respiratory Rate 21 H 19 22 H Blood Pressure 144/78 H 162/80 H Pulse Oximetry 95 95 04/12/21 20:10 04/13/21 02:00 04/13/21 02:10 Temperature 97.5 F L Pulse Rate 122 H 110 H 110 H Respiratory Rate 22 H 20 20 Blood Pressure 160/76 H Pulse Oximetry 94 04/13/21 06:00 04/13/21 08:00 04/13/21 08:10 Temperature 97.4 F L Pulse Rate 108 H 111 H 109 H Respiratory Rate 18 20 20 Blood Pressure 148/80 H Pulse Oximetry 94 94 04/13/21 08:18 04/13/21 14:00 04/13/21 15:10 Temperature 97.8 F Pulse Rate 111 H 110 H 112 H Respiratory Rate 20 20 20 Blood Pressure 151/77 H Pulse Oximetry 93 Intake/Output Intake/Output: Intake & Output 04/10/21 04/11/21 04/12/21 03
[2021-04-13] MEDS: MAGNESIUM SULF 2 GM/WATER 50ML 2 GM/50 ML BAG IVPB (16:02)
[2021-04-13] MEDS: QUEtiapine FUMARATE 100 MG TABLET 300 MG PO (20:49)
[2021-04-13] MEDS: risperiDONE 1 MG TABLET 2 MG PO (20:49)
[2021-04-14 02:30] VITALS: PULSE 107; RESP 20
[2021-04-14] MEDS: IPRATROPIUM BR 0.02% INH SOLN 0.5 MG/2.5 ML VIAL INHALATION ×2 (02:30→08:40)
[2021-04-14] MEDS: ALBUTEROL SULFATE NEB 2.5 MG/0.5 ML INH 5 MG INHALATION ×2 (02:30→08:40)
[2021-04-14 02:37] VITALS: PULSE 102; RESP 20
[2021-04-14] MEDS: methylPREDNISolone SOD SUCC 125 MG VIAL 60 MG IV PUSH (03:08)
[2021-04-14] MEDS: LEVOTHYROXINE SODIUM 50 MCG TABLET PO (05:32)
[2021-04-14 06:00] VITALS: BP 120/72; PULSE 96; RESP 20; TEMP 36.2; O2SAT 96
[2021-04-14 06:51] LABS: Hematocrit 35.5 % (37.0-47.0); Hemoglobin 11.7 g/dL (12.0-15.0); Mean Corpuscular Hemoglobin 35.6 pg (26-34); Mean Corpuscular Volume 107.9 fl (80-100); Mean Platelet Volume 9.1 fl (7.4-10.4); Platelet Count Result 206 k/mm3 (150-375); Red Blood Count 3.29 M/mm3 (4.2-5.4); Red Cell Distribution Width 13.2 % (11.5-14.5); White Blood Count 10.4 K/mm3 (4.5-10.0)
[2021-04-14 07:20] LABS: Anion Gap 6 mmol/L (8-16); Blood Urea Nitrogen 18 mg/dL (7-17); Calcium 9.2 mg/dL (8.4-10.2); Carbon Dioxide 24 mmol/L (22-30); Chloride 109 mmol/L (98-107); Estimated CRCL calculation 60 ml/min; Estimated Glomerular Filt Rate > 60; Glucose 156 mg/dL (65-110); Magnesium 2.2 mg/dL (1.6-2.3); Potassium 3.9 mmol/L (3.4-5.0); Sodium 139 mmol/L (137-145)
[2021-04-14] MEDS: QUEtiapine FUMARATE 25 MG TABLET 50 MG PO (08:00)
[2021-04-14] MEDS: CITALOPRAM HYDROBROMIDE 20 MG TABLET PO (08:00)
[2021-04-14] MEDS: clonazePAM (*CRX) 0.5 MG TABLET 1 MG PO (08:00)
[2021-04-14] MEDS: BENZTROPINE MESYLATE 0.5 MG TABLET PO (08:00)
[2021-04-14] MEDS: ENOXAPARIN 40 MG/0.4 ML SYRINGE SUB-Q (08:01)
[2021-04-14 08:40] VITALS: PULSE 90; RESP 20
[2021-04-14] MEDS: FLUTICASONE/SALMETEROL 230-21 MCG INHALER 1 PUFF 2 PUFF INHALATION (08:40)
[2021-04-14 08:50] VITALS: PULSE 91; RESP 20
[2021-04-14] MEDS: predniSONE 20 MG TABLET 40 MG PO (09:10)
--- NOTE | 2021-04-14 13:09 | PM.DS ---
DS: Admitting Diagnosis Discharge Date 04/14/2021 Admitting Diagnosis COPD exacerbation DS: Discharge Diagnosis Discharge Diagnosis (1) Acute exacerbation of chronic obstructive pulmonary disease: Code(s): J44.1 - Chronic obstructive pulmonary disease with (acute) exacerbation Status: Acute Assessment and Plan: Likely precipitated by cigarette smoke exposure while staying at her boyfriend's house. Symptomatic improvement with IV Solu-Medrol and bronchodilators No indications for antibiotics. IV Levaquin was discontinued on admission Able to be weaned to p.o. prednisone. Continue prednisone 40 mg for 5 days as an outpatient Albuterol as needed Continue home Advair (2) Psychiatric illness: Code(s): F99 - Mental disorder, not otherwise specified Status: Acute Assessment and Plan: No acute issues. Continue benztropine, citalopram, clonazepam, quetiapine, and risperidone. (3) Hypothyroidism: Code(s): E03.9 - Hypothyroidism, unspecified Status: Acute Assessment and Plan: TSH slightly decreased with normal T4 but low T3 Continue levothyroxine at current dose She will need outpatient reflex TSH in 4 weeks (4) Hypomagnesemia: Code(s): E83.42 - Hypomagnesemia Status: Acute Assessment and Plan: Magnesium levels normalized with supplementation DS: Summary Hospital Course Hospital Course: Date of admission: 04/12/2021 Date of discharge: 04/14/2021 Dakotah Jernigan is a 65-year-old female with a history of COPD, asthma, hypothyroidism, depression, anxiety, and bipolar disorder who presented to the emergency department on 04/12/2021 with complaints of wheezing ongoing for 1 day. On presentation to the ED, her O2 sats were stable, she was noted to have wheezing on exam, CXR with no acute findings. She was admitted to the hospitalist service for further evaluation and management of her COPD exacerbation. Please see above for further details. She had symptomatic improvement with steroids which will be continued orally as an outpatient. The patient was feeling much better. Her wheezing had resolved on exam. She requested discharge home as she was feeling back to her baseline. Given her overall improvement, she was determined to no longer require inpatient care was felt to be stable for discharge. I discussed with her worrisome signs and symptoms for which to return and she was educated on her medications. She was discharged in hemodynamically stable condition on 04/14/2021. Status at Discharge Functional status at discharge: independent ambulation Overall status at discharge: patient is back to baseline Time Spent with Patient Time attestation: Total time spent providing and/or coordinating discharge services: 35 minutes Time spent: Greater than 30 minutes Exam Narrative: General: well-nourished, well-appearing 65-year-old male, sitting up in bed, comfortable, NARD Neuro: awake, alert and oriented x4, speech clear, no focal neuro deficits noted HEENMT: normocephalic, atraumatic, EOMI, sclerae anicteric Respiratory: Diminished breath sounds bilaterally without crackles, rhonchi, or wheezes, nonlabored breathing Cardio: regular rate, regular rhythm with S1-S2 Abdomen: nondistended, normoactive bowel sounds, soft, nontender to palpation Extremities: no edema, erythema, or tenderness to palpation, DP pulses 2+ bilaterally Skin: no rashes or lesions, warm and dry Psych: appropriate mood and affect, judgment and insight intact DS: Data Data Completed and Pending Labs on day of discharge: Labs from last 24 hours 04/14/21 04/14/21 06:22 06:22 WBC 10.4 H RBC 3.29 L Hgb 11.7 L Hct 35.5 L MCV 107.9 H MCH 35.6 H MCHC 33.0 RDW 13.2 Plt Count 206 MPV 9.1 Sodium 139 Potassium 3.9 Chloride 109 H Carbon Dioxide 24 Anion Gap 6 L BUN 18 H Creatinine 0.90 Estim Creat Clear Calc 60 Estimated GFR
[2021-04-14 13:20] VITALS: BP 139/71; PULSE 98; RESP 20; TEMP 36.5; O2SAT 96
== END 2021-04-14 14:05 | disposition home or self-care (01) | DRG 192 ==
LOC: ANHED 18:35 → ANH3MEDSUR 19:18
PROVIDERS: Physician Assistant; Admitting Provider Family Medicine; Emergency Provider Emergency Medicine; PCP Physician Assistant; Visit Provider Physician Assistant
DX: J44.1 Chronic obstructive pulmonary disease with (acute) exacerbation (principal); E03.9 Hypothyroidism, unspecified; F41.9 Anxiety disorder, unspecified; F31.9 Bipolar disorder, unspecified; K58.9 Irritable bowel syndrome, unspecified; M81.0 Age-related osteoporosis without current pathological fracture; Z82.49 Family history of ischemic heart disease and other diseases of the circulatory system; Z87.891 Personal history of nicotine dependence; Z79.899 Other long term (current) drug therapy; Z88.1 Allergy status to other antibiotic agents; Z88.0 Allergy status to penicillin; E83.42 Hypomagnesemia
CPT/HCPCS: 36415; 71046; 80048; 80053; 82607; 82746; 83735; 83880; 84439; 84443; 84480; 84484; 85025; 85027; 85610; 85730; 93005; 94640; 96372; 96374; 96375; 96376; 99285; A9270; G0378; J1650; J1956; J2930; J3475; J7512

== ENCOUNTER 2021-04-27 08:45 | Outpatient (CLI) | payer MEDICARE, MEDICAID, SELFPAY ==
--- NOTE | ~2021-04-27 | MM_ITS ---
EXAMINATION: MM screening ezequiel BI w cristiane HISTORY: Screening mammogram TECHNIQUE: Craniocaudal and mediolateral oblique 3-D tomosynthesis images were obtained and synthetic 2-D images were generated. CAD analysis was submitted and interpreted. COMPARISON: 04/24/2020 bilateral screening mammogram 02/13/2019 diagnostic left mammogram and complete left breast ultrasound 07/07/2018 bilateral screening mammogram BREAST PARENCHYMAL COMPOSITION: FINDINGS: Multiple bilateral circumscribed low-density opacities, some with halo signs, measuring at 1.4 cm approximate maximal dimension, consistent with numerous bilateral breast cysts. There is no ev idence of suspicious mass, calcification, or architectural distortion to suggest malignancy in either breast. There has been no suspicious interval change. IMPRESSION: 1. Bilateral benign masses consistent with cysts. No mammographic evidence of malignancy. 2. Recommend routine screening mammography in one year. BI-RADS Category 2: Benign finding(s). Reviewed, dictated and finalized at location A. IMPRESSION: 1. Bilateral benign masses consistent with cysts. No mammographic evidence of m alignancy. 2. Recommend routine screening mammography in one year. BI-RADS Category 2: Benign finding(s).
== END 2021-04-27 08:46 | disposition home or self-care (01) ==
LOC: ANHIMG 08:47
PROVIDERS: PCP Physician Assistant; Visit Provider Physician Assistant
DX: Z12.31 Encounter for screening mammogram for malignant neoplasm of breast (principal)
CPT/HCPCS: 77063; 77067

== ENCOUNTER 2021-06-21 20:11 | Emergency (ER) | payer MEDICARE, MEDICAID, SELFPAY ==
--- NOTE | ~2021-06-21 | CT_ITS ---
EXAMINATION: CT abdomen pelvis w con DATE: 06/22/2021 00:44 INDICATION: 3 days of nonspecific abdominal pain, nausea, vomiting and diarrhea. TECHNIQUE: Computed tomography (CT) of the abdomen and pelvis was performed with 100 mL Omnipaque-350 intravenous contrast. Automated exposure control and iterative reconstruction technique were employe d. The dose-length product was 655.03 mGy-cm. COMPARISON: None FINDINGS: Mild atelectasis/scarring at the bilateral lung bases including in the lingula, right middle and bila teral lower lobes. Heart size is normal. No pericardial or pleural effusion. Small sliding-type hiata l hernia.Cholecystectomy clips at the gallbladder fossa. Focal hepatic steatosis at the ligamentum te res. 3.7 cm cyst in the right hepatic lobe. Fatty atrophy at the head and uncinate process of the galindo creas. Spleen and bilateral adrenal glands are normal. 3.8 cm left renal cyst. Bilateral nonobstructi ng nephrolithiasis with multiple stones scattered throughout both kidneys measuring up to 8 mm on the right and 11 mm on the left. No hydronephrosis or stones seen along the visualized portions of the u reters. Portions of the pelvis are obscured by dense metallic streak artifact from bilateral total kn ee arthroplasties. Visualized bladder is unremarkable. The uterus is not identified and has likely be en surgically resected. There are few scattered clonic diverticula without adjacent from 3 change to suggest diverticulitis. There is fluid within nondilated loops of small bowel and in the proximal col on consistent with diarrhea. No abnormal bowel wall thickening or obstruction. No free intraperitonea l gas or fluid. No pathologically enlarged abdominal or pelvic lymphadenopathy. Mild lumbar dextrocur vature with mild spondylosis. IMPRESSION: 1. Fluid throughout portions of the small bowel and proximal colon consistent with nonspecific diarrh ea. Correlate clinically for gastroenteritis. 2. Bilateral nonobstructing nephrolithiasis 3. Small sliding-type hiatal hernia. Reviewed, dictated and finalized at location A. IMPRESSION: 1. Fluid throughout portions of the small bowel and proximal colon consistent w ith nonspecific diarrhea. Correlate clinically for gastroenteritis. 2. Bilateral nonobstructing nephrolithiasis 3. Small sliding-type hiatal hernia.
[2021-06-21 21:03] VITALS: BP 115/72; PULSE 100; RESP 14; TEMP 36.7; O2SAT 95
[2021-06-21] MEDS: ONDANSETRON HCL ODT 4 MG TABLET PO (21:40)
[2021-06-21 21:42] VITALS: BP 121/77; PULSE 88; O2SAT 98
[2021-06-21 21:47] LABS: Basophils Percent Auto 0.2 % (0.2-1.2); Eosinophils Absolute Auto 0.1 K/mm3 (0-0.3); Eosinophils Percent Auto 0.9 % (0-4.4); Hematocrit 41.2 % (37.0-47.0); Hemoglobin 13.3 g/dL (12.0-15.0); Immature Granulocyte Absolute 0.01 K/mm3 (0.00-0.031); Immature Granulocyte Percent A 0.2 % (0-0.5); Lymphocytes Absolute Auto 1.69 K/mm3 (0.9-3.2); Lymphocytes Percent Auto 31.6 % (18.3-44.2); Mean Corpuscular HGB Conc 32.3 g/dl (32-36); Mean Corpuscular Hemoglobin 35.3 pg (26-34); Mean Corpuscular Volume 109.3 fl (80-100); Mean Platelet Volume 8.4 fl (7.4-10.4); Monocytes Absolute Auto 0.3 K/mm3 (0.1-0.6); Monocytes Percent Auto 4.7 % (2.6-8.5); Neutrophils Absolute Auto 3.3 K/mm3 (1.3-6.7); Neutrophils Percent Auto 62.4 % (45.5-73.1); Platelet Count Result 170 k/mm3 (150-375); Red Blood Count 3.77 M/mm3 (4.2-5.4); Red Cell Distribution Width 13.3 % (11.5-14.5); White Blood Count 5.4 K/mm3 (4.5-10.0)
[2021-06-21 21:49] LABS: Appearance Urine Slightly Cloudy (Clear); Bilirubin Urine Negative (Negative); Blood Urine 1+ (Negative); Color Urine Yellow (Yellow); Glucose Urine UA Negative (Negative); Ketones Urine Negative (Negative); Leukocyte Esterase Ur 2+ LEU/UL (Negative); Nitrate Urine Negative (Negative); Protein Urine 1+ mg/dL (Negative); Specific Grav Ur 1.015 (1.001-1.035); pH Urine 5.5 (5.0-9.0)
[2021-06-21 21:54] LABS: Bacteria Urine 1+ /hpf; Mucus Urine Rare /lpf; Squamous Epithelial Cell Urine Many /hpf (Few); WBC Urine >75 /hpf
[2021-06-21 21:55] LABS: Add Urine Microscopic? YES
--- NOTE | 2021-06-21 22:56 | PC.NURSE ---
Bryson DEL RIO at bedside with ultrasound for iV placement
[2021-06-21 23:17] VITALS: BP 120/71; PULSE 77; RESP 16; O2SAT 97
[2021-06-21 23:31] LABS: Alanine Aminotransferase 33 U/L (6-35); Albumin Level 3.9 g/dL (3.5-5.1); Alkaline Phosphatase 95 U/L (38-126); Anion Gap 5 mmol/L (8-16); Aspartate Amino Transferase 37 U/L (14-36); Bilirubin,Total 0.4 mg/dL (0.2-1.3); Blood Urea Nitrogen 19 mg/dL (7-17); Calcium 8.2 mg/dL (8.4-10.2); Carbon Dioxide 27 mmol/L (22-30); Chloride 108 mmol/L (98-107); Estimated CRCL calculation 54 ml/min; Estimated Glomerular Filt Rate 55; Glucose 106 mg/dL (65-110); Lipase 116 U/L (23-300); Potassium 3.8 mmol/L (3.4-5.0); Sodium 140 mmol/L (137-145)
[2021-06-22 01:05] VITALS: BP 113/70; PULSE 78; RESP 16; O2SAT 97
--- NOTE | 2021-06-22 01:13 | PC.NURSE ---
Pt reports nausea/vomiting have resolved. Pt resting on stretcher, lights dimmed
--- NOTE | 2021-06-22 01:29 | ED.ABDPAIN ---
HPI - Abdominal Pain General Chief Complaint: Nausea/Vomiting/Diarrhea Stated Complaint: N/V/D, ABD pain Time Seen by Provider: 06/21/21 21:27 History of Present Illness HPI narrative: 66-year-old female presenting with suprapubic tenderness, nausea and vomiting for the last 3 days, no fevers or chills. Has had symptoms like this before. History of kidney stones and UTIs. Related Data Home Medications Medication Instructions Recorded Confirmed clonazepam 1 mg tablet 1 mg PO BID 03/13/19 04/12/21 risperidone [Risperdal] 2 mg PO HS 07/23/19 04/12/21 levothyroxine 50 mcg PO DAILY 09/22/20 04/12/21 benztropine 0.5 mg PO DAILY 11/20/20 04/12/21 citalopram [Celexa] 20 mg PO DAILY 11/20/20 04/12/21 quetiapine 50 mg PO DAILY 11/20/20 04/12/21 albuterol sulfate 2 puff INHALATION Q4-6H PRN 04/12/21 04/12/21 quetiapine 300 mg PO HS 04/12/21 04/12/21 Allergies Allergy/AdvReac Type Severity Reaction Status Date / Time sulfamethoxazole Allergy Mild ITCHING/KATE Verified 06/21/21 21:40 H codeine Allergy Unknown Itching Verified 06/21/21 21:40 Penicillins Allergy Unknown Itching Verified 06/21/21 21:40 trimethoprim Allergy Unknown Itching Verified 06/21/21 21:40 diphenhydramine AdvReac Unknown Verified 06/22/21 01:09 [From Benadryl] Review of Systems Review of Systems: CONST: No fever. HEENT: No sore throat C/V: No chest pain RESP: No cough GI: Reports abdominal pain, nausea, vomiting : dysuria. M/S: No joint pain. SKIN: No rash. NEURO: [No headache or focal numbness or weakness] PSYCH: [No depression] [facility], LAT[facility] Past Medical History Medical History Ankle fracture, left Anxiety Asthma Bipolar 1 disorder Chronic obstructive pulmonary disease Depression Endometriosis Hypothyroid Irritable bowel syndrome Kidney stones Osteoporosis Pneumonia Surgical History Surgical History History of bilateral hip replacements History of cholecystectomy History of tubal ligation Family History Family History Sibling Patient's sister is in good health Father Acute myocardial infarction Hypertension Mother Family history of diabetes mellitus in first degree relative Other Family history of blood dyscrasia Social History Social History Social History: Surrogate decision maker: Mega Araya, niece. Code status: Full code. Smoking status: Former smoker Second hand tobacco smoke exposure: Yes Additional smoking assessment comments: Quit at the age of 34. Boyfriend is a heavy smoker. Alcohol intake: never Substance use: never Additional living arrangements comments: The patient lives in her own apartment but stays with her boyfriend several days a week. Additional occupation/education comments: Disabled. Exam Narrative: EXAMINATION OF ORGAN SYSTEMS/BODY AREAS: Constitutional: Vital signs per nursing GENERAL:[No acute distress, non-toxic appearing.] HEAD: Normal with no signs of head trauma. EYES: EOMI, conjunctiva normal ENT: Hearing grossly intact LUNGS: Nonlabored breathing. HEART: [Regular rate and rhythm] ABD: [Soft], [tender to palpation suprapubic], no CVAT EXT: Normal range of motion SKIN: [No rashes or lesions.] NEURO: [Alert and oriented x 3. No gross focal sensory or strength deficits.] PSYCH: Normal affect Course Course Emergency Course: 66 year-old patient presenting with suprapubic pain and urinary symptoms consistent with UTI as well as n/v/d. Urinalysis is obtained and positive for signs of infection. Urine culture sent. CT scan obtained to rule out any obstructive/infected stone, this is negative for acute process other than possible enteritis, patient is treated with IV fluids, Zofran, and IV antibiotics, she is feeling much better afterwards, no longer any complaints
[2021-06-22] MEDS: cefTRIAXone 2 GM in SODIUM CHLORIDE 0.9% IV 100 ML 200 ML IVPB (02:00)
[2021-06-22 02:46] VITALS: BP 121/77; PULSE 80; RESP 18; O2SAT 97
== END 2021-06-22 02:51 | disposition home or self-care (01) ==
PROVIDERS: Emergency Provider Emergency Medicine; PCP Physician Assistant
DX: N30.00 Acute cystitis without hematuria (principal); R19.7 Diarrhea, unspecified; J44.9 Chronic obstructive pulmonary disease, unspecified; E03.9 Hypothyroidism, unspecified; N80.9 Endometriosis, unspecified; K58.9 Irritable bowel syndrome, unspecified; M81.0 Age-related osteoporosis without current pathological fracture; F31.9 Bipolar disorder, unspecified; F41.9 Anxiety disorder, unspecified; Z87.442 Personal history of urinary calculi; Z87.01 Personal history of pneumonia (recurrent); Z96.643 Presence of artificial hip joint, bilateral; Z87.891 Personal history of nicotine dependence; N20.0 Calculus of kidney; K44.9 Diaphragmatic hernia without obstruction or gangrene
CPT/HCPCS: 36415; 74177; 80053; 81001; 83690; 85025; 87086; 87147; 87181; 87186; 96365; 99284; A9270; J0696; Q9967

== ENCOUNTER 2021-07-08 13:30 | Outpatient (CLI) | payer MEDICARE, MEDICAID, SELFPAY ==
[2021-07-08 14:42] LABS: Basophils Percent Auto 0.3 % (0.2-1.2); Eosinophils Absolute Auto 0.4 K/mm3 (0-0.3); Eosinophils Percent Auto 6.3 % (0-4.4); Hematocrit 41.8 % (37.0-47.0); Hemoglobin 13.6 g/dL (12.0-15.0); Immature Granulocyte Absolute 0.02 K/mm3 (0.00-0.031); Immature Granulocyte Percent A 0.3 % (0-0.5); Lymphocytes Absolute Auto 2.72 K/mm3 (0.9-3.2); Mean Corpuscular HGB Conc 32.5 g/dl (32-36); Mean Corpuscular Hemoglobin 35.1 pg (26-34); Mean Corpuscular Volume 107.7 fl (80-100); Mean Platelet Volume 9.3 fl (7.4-10.4); Monocytes Absolute Auto 0.4 K/mm3 (0.1-0.6); Neutrophils Absolute Auto 3.4 K/mm3 (1.3-6.7); Neutrophils Percent Auto 49.1 % (45.5-73.1); Platelet Count Result 195 k/mm3 (150-375); Red Blood Count 3.88 M/mm3 (4.2-5.4); Red Cell Distribution Width 12.9 % (11.5-14.5)
[2021-07-08 15:38] LABS: Alanine Aminotransferase 29 U/L (6-35); Albumin Level 4.4 g/dL (3.5-5.1); Alkaline Phosphatase 110 U/L (38-126); Anion Gap 5 mmol/L (8-16); Aspartate Amino Transferase 29 U/L (14-36); Bilirubin,Total 0.5 mg/dL (0.2-1.3); Blood Urea Nitrogen 19 mg/dL (7-17); Calcium 9.9 mg/dL (8.4-10.2); Carbon Dioxide 27 mmol/L (22-30); Chloride 106 mmol/L (98-107); Cholesterol 249 mg/dL (0-200); Estimated Glomerular Filt Rate 50; Glucose 103 mg/dL (65-110); HDL Direct 60 mg/dL; LDL Cholesterol Direct 139 mg/dL; Potassium 4.5 mmol/L (3.4-5.0); Sodium 138 mmol/L (137-145); Triglycerides 146 mg/dL (<150)
[2021-07-08 16:36] LABS: Free T4 Free Thyroxine 0.97 ng/mL (0.78-2.19)
[2021-07-08 16:37] LABS: Add Urine Microscopic? YES; Appearance Urine Slightly Cloudy (Clear); Bilirubin Urine Negative (Negative); Blood Urine Trace-lysed (Negative); Color Urine Light Yellow (Yellow); Glucose Urine UA Negative (Negative); Ketones Urine Negative (Negative); Leukocyte Esterase Ur 2+ LEU/UL (NEGATIVE); Nitrate Urine Negative (Negative); Protein Urine Negative (Negative); Specific Grav Ur 1.015 (1.001-1.035); Urobilinogen Urine 0.2 mg/dL (<2.0)
[2021-07-08 16:41] LABS: Bacteria Urine Trace /hpf; Squamous Epithelial Cell Urine Many /hpf (Few); WBC Urine 21-30 /hpf (0-3)
== END 2021-07-08 13:31 | disposition home or self-care (01) ==
LOC: ANHLAB 13:33
PROVIDERS: PCP Physician Assistant; Visit Provider Physician Assistant
DX: E03.9 Hypothyroidism, unspecified (principal); R39.9 Unspecified symptoms and signs involving the genitourinary system; Z79.899 Other long term (current) drug therapy; Z13.220 Encounter for screening for lipoid disorders
CPT/HCPCS: 36415; 80048; 80061; 80076; 81001; 84439; 84443; 85025; 87086

== ENCOUNTER 2021-09-03 23:09 | Emergency (ER) | payer MEDICARE, MEDICAID, SELFPAY ==
--- NOTE | ~2021-09-03 | XR_ITS ---
EXAMINATION: XR chest 1V portable DATE: 09/04/2021 02:09 INDICATION: Chest pain TECHNIQUE: frontal view of the chest was obtained. COMPARISON: Chest radiograph dated 04/12/2021 FINDINGS: Persistent mild bibasilar opacities which could represent atelectasis or pneumonia. No pleural effusi on or pneumothorax. The cardiomediastinal silhouette is within normal limits for AP technique. IMPRESSION: 1. Mild bibasilar opacities most likely atelectasis although differential includes pneumonia.. Reviewed, dictated and finalized at location A. IMPRESSION: 1. Mild bibasilar opacities most likely atelectasis although differential inclu tj pneumonia..
[2021-09-03 23:32] VITALS: BP 117/72; PULSE 95; RESP 16; TEMP 36.3; O2SAT 97
[2021-09-03 23:53] LABS: Appearance Urine Cloudy (Clear); Bilirubin Urine Negative (Negative); Blood Urine 2+ (Negative); Color Urine Yellow (Yellow); Glucose Urine UA Negative (Negative); Ketones Urine Negative (Negative); Leukocyte Esterase Ur 3+ LEU/UL (Negative); Nitrate Urine Negative (Negative); Protein Urine 2+ mg/dL (Negative); Specific Grav Ur 1.015 (1.001-1.035)
[2021-09-03 23:56] LABS: RBC Urine 21-50 /hpf (0-2); Squamous Epithelial Cell Urine Many /hpf (Few); WBC Clumps Urine Present /HPF; WBC Urine >75 /hpf
[2021-09-03 23:57] LABS: Add Urine Microscopic? YES
--- NOTE | 2021-09-04 01:37 | ECG_ITS ---
Measurements Intervals [place] Rate: 71 P: 55 [place]: 156 QRS: 19 QRSD: 96 T: 17 QT: 353 QTc: 385 Interpretive Statements SINUS RHYTHM BASELINE ARTIFACT- I, II, III, AVR, AVL, AVF, V1-V2 NORMAL ECG Electronically Signed On 09-04-2021 6:59:55 CDT by Mat Munoz D.O.
[2021-09-04] MEDS: NITROFURANTOIN MONOHYD MACROCR 100 MG CAP PO (02:37)
--- NOTE | 2021-09-04 02:57 | ED.GENADULT ---
HPI - General Adult General Chief complaint: Unspecified Stated complaint: UTI, CP, shaking Time Seen by Provider: 09/04/21 01:37 History of Present Illness HPI narrative: 66-year-old female presenting with UTI symptoms, she had been urinating more frequently, denies any flank pain, fevers or chills, she states that earlier today she did have an episode of chest pain, per her road repairer at bedside she does have frequent episodes like this. She also has an itchy rash on her left breast that is nonpainful. Related Data Home Medications Medication Instructions Recorded Confirmed clonazepam 1 mg tablet (Klonopin) 1 mg PO BID 03/13/19 04/12/21 risperidone 2 mg tablet (Risperdal) 2 mg PO HS 07/23/19 04/12/21 levothyroxine 50 mcg tablet 50 mcg PO DAILY 09/22/20 04/12/21 benztropine 0.5 mg tablet 0.5 mg PO DAILY 11/20/20 04/12/21 citalopram 20 mg tablet (Celexa) 20 mg PO DAILY 11/20/20 04/12/21 quetiapine 50 mg tablet 50 mg PO DAILY 11/20/20 04/12/21 albuterol sulfate 90 mcg/actuation 2 puff inhalation Q4-6H PRN 04/12/21 04/12/21 aerosol inhaler Wheezing quetiapine 300 mg tablet 300 mg PO HS 04/12/21 04/12/21 Allergies Allergy/AdvReac Type Severity Reaction Status Date / Time sulfamethoxazole Allergy Mild ITCHING/KATE Verified 09/04/21 01:34 H codeine Allergy Unknown Itching Verified 09/04/21 01:34 Penicillins Allergy Unknown Itching Verified 09/04/21 01:34 trimethoprim Allergy Unknown Itching Verified 09/04/21 01:34 diphenhydramine AdvReac Unknown Verified 09/04/21 01:34 [From Benadryl] Review of Systems Review of Systems: CONST: No fever. HEENT: No sore throat C/V: No current chest pain RESP: No cough GI: Mild suprapubic tenderness : Urinary frequency. M/S: No joint pain. SKIN: No rash. NEURO: [No headache or focal numbness or weakness] PSYCH: [No depression] PMFSH Past Medical History Medical History Ankle fracture, left Anxiety Asthma Bipolar 1 disorder Chronic obstructive pulmonary disease Depression Endometriosis Hypothyroid Irritable bowel syndrome Kidney stones Osteoporosis Pneumonia Surgical History Surgical History History of bilateral hip replacements History of cholecystectomy History of tubal ligation Family History Family History Sibling Patient's sister is in good health Father Acute myocardial infarction Hypertension Mother Family history of diabetes mellitus in first degree relative Other Family history of blood dyscrasia Social History Social History Social History: Surrogate decision maker: Mega Araya, niece. Code status: Full code. Smoking status: Former smoker Second hand tobacco smoke exposure: Yes Additional smoking assessment comments: Quit at the age of 34. Boyfriend is a heavy smoker. Alcohol intake: never Substance use: never Additional living arrangements comments: The patient lives in her own apartment but stays with her boyfriend several days a week. Additional occupation/education comments: Disabled. Exam Narrative: EXAMINATION OF ORGAN SYSTEMS/BODY AREAS: Constitutional: Vital signs per nursing GENERAL:[No acute distress, non-toxic appearing.] HEAD: Normal with no signs of head trauma. EYES: EOMI, conjunctiva normal ENT: Hearing grossly intact LUNGS: Nonlabored breathing. HEART: [Regular rate and rhythm] ABD: [Soft], [minimal to palpation suprapubic, no flank tenderness] EXT: Normal range of motion SKIN: Slight bruising and excoriation below left breast, no signs of vesicles or other lesions NEURO: [Alert and oriented x 3. No gross focal sensory or strength deficits.] PSYCH: Normal affect Course Vital Signs Vital signs: Vital Signs Temperature 97.3 F L 09/03/21 23:32 Pulse Rate 95 09/03/21 23:32 Respiratory R
[2021-09-04 03:09] VITALS: BP 131/77; PULSE 86; RESP 16; O2SAT 96
== END 2021-09-04 03:06 | disposition home or self-care (01) ==
PROVIDERS: Emergency Provider Emergency Medicine; PCP Physician Assistant
DX: N39.0 Urinary tract infection, site not specified (principal); R21 Rash and other nonspecific skin eruption; J44.9 Chronic obstructive pulmonary disease, unspecified; E03.9 Hypothyroidism, unspecified; K58.9 Irritable bowel syndrome, unspecified; M81.0 Age-related osteoporosis without current pathological fracture; N80.9 Endometriosis, unspecified; F41.9 Anxiety disorder, unspecified; F31.9 Bipolar disorder, unspecified; Z96.643 Presence of artificial hip joint, bilateral; Z87.442 Personal history of urinary calculi; Z87.01 Personal history of pneumonia (recurrent); Z87.891 Personal history of nicotine dependence
CPT/HCPCS: 71045; 81001; 87086; 87088; 93005; 99283; A9270

== ENCOUNTER 2021-10-18 22:18 | Emergency (ER) | payer MEDICARE, MEDICAID, SELFPAY ==
[2021-10-18 22:21] VITALS: PULSE 95; RESP 20; TEMP 36.6; O2SAT 98
[2021-10-18 22:51] LABS: Appearance Urine Cloudy (Clear); Bilirubin Urine Negative (Negative); Blood Urine 1+ (Negative); Glucose Urine UA Negative (Negative); Ketones Urine Negative (Negative); Leukocyte Esterase Ur 1+ LEU/UL (Negative); Nitrate Urine Negative (Negative); Protein Urine Negative (Negative); Urobilinogen Urine 0.2 mg/dL (<2.0); pH Urine 7.5 (5.0-9.0)
[2021-10-18 22:52] LABS: Add Urine Microscopic? YES; Color Urine Light Yellow (Yellow)
[2021-10-18 23:00] LABS: Budding Yeast Urine Present /hpf; Mucus Urine Rare /lpf; Squamous Epithelial Cell Urine Moderate /hpf (Few); WBC Urine >75 /hpf
--- NOTE | 2021-10-19 00:04 | ED.GENADULT ---
HPI - General Adult General Chief complaint: Extremity Injury, Lower Stated complaint: right leg pain, hx of dvt Time Seen by Provider: 10/18/21 22:42 History of Present Illness HPI narrative: 66-year-old female with prior history of lower extremity DVTs presenting to the emergency department for evaluation of right lower leg edema that has been worsening over the past 2 days. Patient states she has a remote history of DVTs in the right leg but states she is no longer taking anticoagulants. Patient denies any associated chest pain or shortness of breath. Patient denies any falls or injuries. Patient states she is also having symptoms of a urinary tract infection which include burning with urination and increased urinary frequency. Patient has history of bipolar disorder, urinary tract infections and COPD Related Data Home Medications Medication Instructions Recorded Confirmed clonazepam 1 mg tablet (Klonopin) 1 mg PO BID 03/13/19 04/12/21 risperidone 2 mg tablet (Risperdal) 2 mg PO HS 07/23/19 04/12/21 levothyroxine 50 mcg tablet 50 mcg PO DAILY 09/22/20 04/12/21 benztropine 0.5 mg tablet 0.5 mg PO DAILY 11/20/20 04/12/21 citalopram 20 mg tablet (Celexa) 20 mg PO DAILY 11/20/20 04/12/21 quetiapine 50 mg tablet 50 mg PO DAILY 11/20/20 04/12/21 albuterol sulfate 90 mcg/actuation 2 puff inhalation Q4-6H PRN 04/12/21 04/12/21 aerosol inhaler Wheezing quetiapine 300 mg tablet 300 mg PO HS 04/12/21 04/12/21 Allergies Allergy/AdvReac Type Severity Reaction Status Date / Time sulfamethoxazole Allergy Mild ITCHING/KATE Verified 10/18/21 22:20 H codeine Allergy Unknown Itching Verified 10/18/21 22:20 Penicillins Allergy Unknown Itching Verified 10/18/21 22:20 trimethoprim Allergy Unknown Itching Verified 10/18/21 22:20 diphenhydramine AdvReac Unknown Verified 10/18/21 22:20 [From Beneliasryl] Review of Systems Review of Systems: CONSTITUTIONAL: Denies fever, chills, or sweats. EYES: Denies visual changes, redness, or discharge. ENT: Denies rhinorrhea, congestion, sore throat, or otalgia. CARDIOVASCULAR: Denies chest pain, palpitations RESPIRATORY: Denies cough or dyspnea. GASTROINTESTINAL: Denies abdominal pain, nausea, vomiting, or diarrhea. GENITOURINARY: See HPI SKIN: Denies rash or itching. MUSCULOSKELETAL: Right lower extremity swelling NEUROLOGIC: Denies headache, numbness, or weakness. PMFSH Past Medical History Medical History Ankle fracture, left Anxiety Asthma Bipolar 1 disorder Chronic obstructive pulmonary disease Depression Endometriosis Hypothyroid Irritable bowel syndrome Kidney stones Osteoporosis Pneumonia Surgical History Surgical History History of bilateral hip replacements History of cholecystectomy History of tubal ligation Family History Family History Sibling Patient's sister is in good health Father Acute myocardial infarction Hypertension Mother Family history of diabetes mellitus in first degree relative Other Family history of blood dyscrasia Social History Social History Social History: Surrogate decision maker: Mega Araya, niece. Code status: Full code. Smoking status: Former smoker Second hand tobacco smoke exposure: Yes Additional smoking assessment comments: Quit at the age of 34. Boyfriend is a heavy smoker. Alcohol intake: never Substance use: never Additional living arrangements comments: The patient lives in her own apartment but stays with her boyfriend several days a week. Additional occupation/education comments: Disabled. Exam Narrative: APPEARANCE: Well appearing, no pain, no distress, well-nourished. HEAD: normocephalic, atraumatic. EYES: PERRLA/EOMI, conjunctivae clear. NOSE: Normal no drainage NECK: Supple. No adenopathy, no m
--- NOTE | 2021-10-19 00:10 | PC.NURSE ---
Attempted IV x2, unsuccessful. ERP notified, orders placed.
[2021-10-19] MEDS: ENOXAPARIN 100 MG/ML SYRINGE 83 MG SUB-Q (00:22)
[2021-10-19] MEDS: NITROFURANTOIN MONOHYD MACROCR 100 MG CAP PO (00:22)
== END 2021-10-19 00:45 | disposition home or self-care (01) ==
PROVIDERS: Physician Assistant; Emergency Provider Emergency Medicine; PCP Physician Assistant
DX: M79.89 Other specified soft tissue disorders (principal); N39.0 Urinary tract infection, site not specified; J44.9 Chronic obstructive pulmonary disease, unspecified; F31.9 Bipolar disorder, unspecified; K58.9 Irritable bowel syndrome, unspecified; E03.9 Hypothyroidism, unspecified; M81.0 Age-related osteoporosis without current pathological fracture; F41.9 Anxiety disorder, unspecified; Z87.891 Personal history of nicotine dependence; Z86.718 Personal history of other venous thrombosis and embolism; Z79.51 Long term (current) use of inhaled steroids; Z79.52 Long term (current) use of systemic steroids
CPT/HCPCS: 81001; 87086; 87147; 87181; 87186; 93971; 96372; 99283; A9270; J1650

== ENCOUNTER 2021-10-19 07:05 | Outpatient (CLI) | payer MEDICARE, MEDICAID, SELFPAY ==
--- NOTE | ~2021-10-19 | US_ITS ---
EXAMINATION: US venous doppler LE RT DATE: 10/19/2021 08:19 INDICATION: Right lower limb swelling TECHNIQUE: Knox scale images without and with compression and Doppler images of the right lower extre mity veins were obtained. COMPARISON: 03/26/2021 FINDINGS: The right common femoral vein, profunda femoral vein, femoral vein, popliteal vein, peronea l trunk, posterior tibial veins, and greater saphenous vein are patent. IMPRESSION: 1. Patent right lower extremity veins. No evidence of deep venous thrombosis. Reviewed, dictated and finalized at location B.
== END 2021-10-19 07:06 | disposition home or self-care (01) ==
PROVIDERS: PCP Physician Assistant; Visit Provider Physician Assistant
DX: M79.89 Other specified soft tissue disorders (principal)
CPT/HCPCS: 93971

== ENCOUNTER 2021-11-11 22:50 | Emergency (ER) | payer MEDICARE, MEDICAID, SELFPAY ==
[2021-11-11 23:47] VITALS: BP 130/87; PULSE 86; RESP 16; TEMP 36.7; O2SAT 97
[2021-11-12 01:45] LABS: Appearance Urine Cloudy (Clear); Bilirubin Urine Negative (Negative); Blood Urine 2+ (Negative); Color Urine Yellow (Yellow); Glucose Urine UA Negative (Negative); Ketones Urine Negative (Negative); Leukocyte Esterase Ur 3+ LEU/UL (Negative); Nitrate Urine Positive (Negative); Protein Urine 1+ mg/dL (Negative); Specific Grav Ur 1.015 (1.001-1.035); Urobilinogen Urine 0.2 mg/dL (<2.0)
[2021-11-12 01:54] LABS: Bacteria Urine 1+ /hpf; RBC Urine 21-50 /hpf (0-2); Squamous Epithelial Cell Urine Many /hpf (Few); WBC Clumps Urine Present /HPF; WBC Urine >75 /hpf
[2021-11-12 01:55] LABS: Add Urine Microscopic? YES
--- NOTE | 2021-11-12 01:55 | ED.FEMALEGU ---
HPI - Female Genitourinary General Chief complaint: Urogenital-Female Stated complaint: urinary symptoms Time Seen by Provider: 11/12/21 01:03 History of Present Illness HPI Narrative: 66-year-old presenting with cloudy urine; no abdominal pain. States she often has UTIs after she has sex; is monogamous, denies any discharge or concerns for STDs. Related Data Home Medications Medication Instructions Recorded Confirmed clonazepam 1 mg tablet (Klonopin) 1 mg PO BID 03/13/19 04/12/21 risperidone 2 mg tablet (Risperdal) 2 mg PO HS 07/23/19 04/12/21 levothyroxine 50 mcg tablet 50 mcg PO DAILY 09/22/20 04/12/21 benztropine 0.5 mg tablet 0.5 mg PO DAILY 11/20/20 04/12/21 citalopram 20 mg tablet (Celexa) 20 mg PO DAILY 11/20/20 04/12/21 quetiapine 50 mg tablet 50 mg PO DAILY 11/20/20 04/12/21 albuterol sulfate 90 mcg/actuation 2 puff inhalation Q4-6H PRN 04/12/21 04/12/21 aerosol inhaler Wheezing quetiapine 300 mg tablet 300 mg PO HS 04/12/21 04/12/21 Allergies Allergy/AdvReac Type Severity Reaction Status Date / Time sulfamethoxazole Allergy Mild ITCHING/KATE Verified 11/11/21 23:49 H codeine Allergy Unknown Itching Verified 11/11/21 23:49 Penicillins Allergy Unknown Itching Verified 11/11/21 23:49 trimethoprim Allergy Unknown Itching Verified 11/11/21 23:49 diphenhydramine AdvReac Unknown Verified 11/11/21 23:49 [From Benadryl] Review of Systems Review of Systems: CONST: No fever. HEENT: No sore throat C/V: No chest pain RESP: No cough GI: No abdominal pain : Increased frequency M/S: No joint pain. SKIN: No rash. NEURO: [No headache or focal numbness or weakness] PSYCH: [No depression] PMFSH Past Medical History Medical History Ankle fracture, left Anxiety Asthma Bipolar 1 disorder Chronic obstructive pulmonary disease Depression Endometriosis Hypothyroid Irritable bowel syndrome Kidney stones Osteoporosis Pneumonia Surgical History Surgical History History of bilateral hip replacements History of cholecystectomy History of tubal ligation Family History Family History Sibling Patient's sister is in good health Father Acute myocardial infarction Hypertension Mother Family history of diabetes mellitus in first degree relative Other Family history of blood dyscrasia Social History Social History Social History: Surrogate decision maker: Mega Araya, niece. Code status: Full code. Smoking status: Former smoker Second hand tobacco smoke exposure: Yes Additional smoking assessment comments: Quit at the age of 34. Boyfriend is a heavy smoker. Alcohol intake: never Substance use: never Additional living arrangements comments: The patient lives in her own apartment but stays with her boyfriend several days a week. Additional occupation/education comments: Disabled. Exam Narrative: EXAMINATION OF ORGAN SYSTEMS/BODY AREAS: Constitutional: Vital signs per nursing GENERAL:[No acute distress, non-toxic appearing.] HEAD: Normal with no signs of head trauma. EYES: EOMI, conjunctiva normal ENT: Hearing grossly intact LUNGS: Nonlabored breathing. HEART: [Regular rate and rhythm] ABD: [Soft], [nontender to palpation] EXT: Normal range of motion SKIN: [No rashes or lesions.] NEURO: [Alert and oriented x 3. No gross focal sensory or strength deficits.] PSYCH: Normal affect Course Vital Signs Vital signs: Vital Signs Temperature 98.1 F 11/11/21 23:47 Pulse Rate 86 11/11/21 23:47 Respiratory Rate 16 11/11/21 23:47 Blood Pressure 130/87 11/11/21 23:47 Pulse Oximetry 97 11/11/21 23:47 Oxygen Delivery Room Air 11/11/21 23:47 Temperature 98.1 F 11/11/21 23:47 Pulse Rate 72 11/12/21 04:14 Respiratory Rate 16 11/12/21 04:14 Blood Pressur
[2021-11-12 02:22] VITALS: BP 145/87; PULSE 77; O2SAT 96
[2021-11-12] MEDS: NITROFURANTOIN MONOHYD MACROCR 100 MG CAP PO (03:38)
[2021-11-12 04:14] VITALS: PULSE 72; RESP 16; O2SAT 100
== END 2021-11-12 04:16 | disposition home or self-care (01) ==
PROVIDERS: Emergency Provider Emergency Medicine; PCP Physician Assistant
DX: N39.0 Urinary tract infection, site not specified (principal); J44.9 Chronic obstructive pulmonary disease, unspecified; E03.9 Hypothyroidism, unspecified; K58.9 Irritable bowel syndrome, unspecified; M81.0 Age-related osteoporosis without current pathological fracture; N80.9 Endometriosis, unspecified; F31.9 Bipolar disorder, unspecified; F41.9 Anxiety disorder, unspecified; Z87.442 Personal history of urinary calculi; Z87.01 Personal history of pneumonia (recurrent); Z96.643 Presence of artificial hip joint, bilateral; Z87.891 Personal history of nicotine dependence
CPT/HCPCS: 81001; 87086; 87147; 87181; 87186; 99283; A9270

== ENCOUNTER 2021-12-02 02:05 | Emergency (ER) | payer MEDICARE, MEDICAID, SELFPAY ==
[2021-12-02] VITALS (18 sets, daily range): BP systolic 129–167; BP diastolic 70–87; PULSE 78–98; RESP 20–22; TEMP 36.2; O2SAT 92–97
--- NOTE | ~2021-12-02 | XR_ITS ---
EXAMINATION: XR chest 2V 12/02/2021 03:17 INDICATION: Chest pain and shortness of breath. PROCEDURE: 2 view chest COMPARISON: Comparison to multiple prior studies sequentially, with oldest reviewed study dated 11/20/2020. FINDINGS: The lungs are clear. The cardiomediastinal silhouette is within normal limits. There are no pleural effusions. There is no pneumothorax suspected. There is bilateral nephrolithiasis. There are cholecystectomy clips. IMPRESSION: 1: NO ACUTE CARDIOPULMONARY DISEASE. Reviewed, dictated and finalized at location B.
--- NOTE | 2021-12-02 02:09 | ECG_ITS ---
Measurements Intervals [place] Rate: 91 P: 50 OH: 166 QRS: 31 QRSD: 86 T: 20 QT: 338 QTc: 417 Interpretive Statements UNDERLYING RHYTHM IS UNINTERPRETABLE DUE TO SIGNIFICANT BASELINE ARTFACT. LOW QRS VOLTAGE IN PRECORDIAL LEADS [QRS DEFLECTION < 1.0 mV IN CHEST LEADS] COMPARED TO ECG 09/04/2021 02:25:01 UNABLE TO DETERMINE RHYTHM DUE TO SIGNIFICANT ARTIFACT Electronically Signed On 12-02-2021 13:11:26 CDT by Guzman Ortiz M.D.
[2021-12-02] MEDS: ASPIRIN 81 MG CHEWABLE TABLET 324 MG PO (02:18)
[2021-12-02 02:31] LABS: Basophils Percent Auto 0.2 % (0.2-1.2); Eosinophils Absolute Auto 0.7 K/mm3 (0-0.3); Eosinophils Percent Auto 8.6 % (0-4.4); Hematocrit 38.5 % (37.0-47.0); Hemoglobin 12.6 g/dL (12.0-15.0); Immature Granulocyte Absolute 0.02 K/mm3 (0.00-0.031); Immature Granulocyte Percent A 0.2 % (0-0.5); Lymphocytes Absolute Auto 3.66 K/mm3 (0.9-3.2); Lymphocytes Percent Auto 44.4 % (18.3-44.2); Mean Corpuscular HGB Conc 32.7 g/dl (32-36); Mean Corpuscular Hemoglobin 34.6 pg (26-34); Mean Corpuscular Volume 105.8 fl (80-100); Mean Platelet Volume 8.2 fl (7.4-10.4); Monocytes Absolute Auto 0.4 K/mm3 (0.1-0.6); Monocytes Percent Auto 4.5 % (2.6-8.5); Neutrophils Absolute Auto 3.5 K/mm3 (1.3-6.7); Neutrophils Percent Auto 42.1 % (45.5-73.1); Platelet Count Result 194 k/mm3 (150-375); Red Blood Count 3.64 M/mm3 (4.2-5.4); Red Cell Distribution Width 12.7 % (11.5-14.5); White Blood Count 8.2 K/mm3 (4.5-10.0)
--- NOTE | 2021-12-02 02:33 | ED.GENADULT ---
HPI - General Adult General Chief complaint: Chest Pain Stated complaint: I can't breathe Time Seen by Provider: 12/02/21 02:17 History of Present Illness HPI narrative: Patient is a 66-year-old female who presents to emergency department with chief complaint of shortness of breath and chest discomfort. The patient reports that she is at element of a runny nose and reports that she has been feeling short of breath this evening. The patient states she had some tightness in her chest with this as well patient reports that she has history of COPD reports no prior history of cardiac disease. Patient states that the pain is very minimal right now and just feels like a slight tightness. Patient states that the worst part is that she cannot get a good deep breath. Patient reports she has felt hot and cold reports that she has not actually checked her temperature at home. Patient reports has had a cough has been productive of clear sputum. Related Data Home Medications Medication Instructions Recorded Confirmed clonazepam 1 mg tablet (Klonopin) 1 mg PO BID 03/13/19 04/12/21 risperidone 2 mg tablet (Risperdal) 2 mg PO HS 07/23/19 04/12/21 levothyroxine 50 mcg tablet 50 mcg PO DAILY 09/22/20 04/12/21 benztropine 0.5 mg tablet 0.5 mg PO DAILY 11/20/20 04/12/21 citalopram 20 mg tablet (Celexa) 20 mg PO DAILY 11/20/20 04/12/21 quetiapine 50 mg tablet 50 mg PO DAILY 11/20/20 04/12/21 albuterol sulfate 90 mcg/actuation 2 puff inhalation Q4-6H PRN 04/12/21 04/12/21 aerosol inhaler Wheezing quetiapine 300 mg tablet 300 mg PO HS 04/12/21 04/12/21 Allergies Allergy/AdvReac Type Severity Reaction Status Date / Time sulfamethoxazole Allergy Mild ITCHING/KATE Verified 12/02/21 02:11 H codeine Allergy Unknown Itching Verified 12/02/21 02:11 Penicillins Allergy Unknown Itching Verified 12/02/21 02:11 trimethoprim Allergy Unknown Itching Verified 12/02/21 02:11 diphenhydramine AdvReac Unknown Verified 12/02/21 02:11 [From Dwayne] Review of Systems Review of Systems: A 10 system review of systems was completed on the patient and is negative except for what is stated in the HPI. Nursing and ancillary documentation was reviewed. [facility] Past Medical History Medical History Ankle fracture, left Anxiety Asthma Bipolar 1 disorder Chronic obstructive pulmonary disease Depression Endometriosis Hypothyroid Irritable bowel syndrome Kidney stones Osteoporosis Pneumonia Surgical History Surgical History History of bilateral hip replacements History of cholecystectomy History of tubal ligation Family History Family History Sibling Patient's sister is in good health Father Acute myocardial infarction Hypertension Mother Family history of diabetes mellitus in first degree relative Other Family history of blood dyscrasia Social History Social History Social History: Surrogate decision maker: Mega Araya niece. Code status: Full code. Smoking status: Former smoker Second hand tobacco smoke exposure: Yes Additional smoking assessment comments: Quit at the age of 34. Boyfriend is a heavy smoker. Alcohol intake: never Substance use: never Additional living arrangements comments: The patient lives in her own apartment but stays with her boyfriend several days a week. Additional occupation/education comments: Disabled. Exam Narrative: GENERAL: Well-appearing, well-nourished, and in no acute distress. HEAD: Normocephalic, atraumatic. EYES: PERRLA and EOMI. ENT: Nares clear, no rhinorrhea or epistaxis. Mucous membranes moist. NECK: Supple. CHEST: Clear to auscultation. No respiratory distress. HEART: Regular rate and rhythm. No murmur heard. Normal perip
[2021-12-02 02:41] LABS: Alanine Aminotransferase 25 U/L (6-35); Alkaline Phosphatase 107 U/L (38-126); Anion Gap 7 mmol/L (8-16); Aspartate Amino Transferase 24 U/L (14-36); Bilirubin,Total 0.4 mg/dL (0.2-1.3); Blood Urea Nitrogen 16 mg/dL (7-17); Calcium 9.6 mg/dL (8.4-10.2); Carbon Dioxide 29 mmol/L (22-30); Chloride 102 mmol/L (98-107); Estimated CRCL calculation 48 ml/min; Estimated Glomerular Filt Rate 50; Glucose 146 mg/dL (65-110); Hypochromasia 1+ (NORMAL); Lipase 172 U/L (23-300); Platelet Estimate Adequate (Adequate); Potassium 3.8 mmol/L (3.4-5.0); Sodium 138 mmol/L (137-145); Stomatocytes 1+ (NORMAL)
[2021-12-02 02:43] LABS: Prothrombin Time 12.5 Seconds (11.1-14.7)
[2021-12-02 02:44] LABS: Partial Thromboplastin Time 28.2 SECONDS (22.3-36.8)
[2021-12-02] MEDS: ALBUTEROL SULFATE NEB 2.5 MG/3 ML INH 5 MG INHALATION (02:45)
[2021-12-02] MEDS: IPRATROPIUM BR 0.02% INH SOLN 0.5 MG/2.5 ML VIAL INHALATION (02:46)
[2021-12-02 02:52] LABS: Troponin I < 0.012 ng/mL (0.000-0.034)
[2021-12-02 02:55] LABS: Schistocytes None Seen (NORMAL)
[2021-12-02 02:59] LABS: Lactic Acid Reflex 1.4 mmol/L (0.7-2.0)
[2021-12-02 03:26] LABS: Influenza A QL RT-PCR Negative (Negative); Influenza B QL RT-PCR Negative (Negative); SARS-CoV-2 RNA PCR Negative
[2021-12-02 03:26] LABS: NT Pro B Type Natriuretic Pept 102 pg/mL (5-100)
[2021-12-02 04:01] LABS: Procalcitonin 0.1 ng/mL
[2021-12-02 05:47] LABS: Troponin I < 0.012 ng/mL (0.000-0.034)
[2021-12-02] MEDS: predniSONE 20 MG TABLET 60 MG PO (05:59)
== END 2021-12-02 06:12 | disposition home or self-care (01) ==
PROVIDERS: Emergency Provider Emergency Medicine; PCP Physician Assistant
DX: R07.89 Other chest pain (principal); J44.9 Chronic obstructive pulmonary disease, unspecified; J06.9 Acute upper respiratory infection, unspecified; Z20.822 Contact with and (suspected) exposure to COVID-19; F41.9 Anxiety disorder, unspecified; E03.9 Hypothyroidism, unspecified
CPT/HCPCS: 36415; 71046; 80053; 83605; 83690; 83880; 84145; 84484; 85025; 85610; 85730; 87502; 93005; 94640; 99284; A9270; J7512; U0003; U0005

== ENCOUNTER 2021-12-14 21:40 | Emergency (ER) | payer MEDICARE, MEDICAID, SELFPAY ==
--- NOTE | ~2021-12-14 | XR_ITS ---
EXAMINATION: XR chest 1V portable INDICATION: Productive cough TECHNIQUE: Portable AP chest at 0127 hours COMPARISON: 12/02/2021 FINDINGS: There are minimal airspace opacities in the right lung base. No pleural effusion or pneumot horax. The cardiomediastinal silhouette is normal. IMPRESSION: 1. Minimal right basilar airspace opacity, consistent with atelectasis versus pneumonia. Reviewed, dictated and finalized at location B. E [employer]IL [employer] IMPRESSION: 1. Minimal right basilar airspace opacity, consistent with atelectasis versus p neumonia.
[2021-12-14 21:48] VITALS: BP 131/83; PULSE 93; RESP 20; TEMP 36.9; O2SAT 98
[2021-12-14 22:10] LABS: Basophils Percent Auto 0.3 % (0.2-1.2); Eosinophils Absolute Auto 0.7 K/mm3 (0-0.3); Eosinophils Percent Auto 8.6 % (0-4.4); Hematocrit 36.7 % (37.0-47.0); Hemoglobin 12.4 g/dL (12.0-15.0); Immature Granulocyte Absolute 0.01 K/mm3 (0.00-0.031); Immature Granulocyte Percent A 0.1 % (0-0.5); Lymphocytes Absolute Auto 2.56 K/mm3 (0.9-3.2); Lymphocytes Percent Auto 33.3 % (18.3-44.2); Mean Corpuscular HGB Conc 33.8 g/dl (32-36); Mean Corpuscular Hemoglobin 35.2 pg (26-34); Mean Corpuscular Volume 104.3 fl (80-100); Monocytes Absolute Auto 0.7 K/mm3 (0.1-0.6); Monocytes Percent Auto 8.6 % (2.6-8.5); Neutrophils Absolute Auto 3.8 K/mm3 (1.3-6.7); Neutrophils Percent Auto 49.1 % (45.5-73.1); Platelet Count Result 161 k/mm3 (150-375); Red Blood Count 3.52 M/mm3 (4.2-5.4); Red Cell Distribution Width 13.2 % (11.5-14.5); White Blood Count 7.7 K/mm3 (4.5-10.0)
[2021-12-14 22:25] LABS: Alanine Aminotransferase 28 U/L (6-35); Albumin Level 3.9 g/dL (3.5-5.1); Alkaline Phosphatase 113 U/L (38-126); Anion Gap 8 mmol/L (8-16); Aspartate Amino Transferase 25 U/L (14-36); Bilirubin,Total 0.4 mg/dL (0.2-1.3); Blood Urea Nitrogen 16 mg/dL (7-17); Calcium 9.3 mg/dL (8.4-10.2); Carbon Dioxide 25 mmol/L (22-30); Chloride 107 mmol/L (98-107); Estimated Glomerular Filt Rate 41; Glucose 108 mg/dL (65-110); Lipase 94 U/L (23-300); Potassium 3.7 mmol/L (3.4-5.0); Sodium 140 mmol/L (137-145)
[2021-12-15 00:41] LABS: Appearance Urine Cloudy (Clear); Bilirubin Urine Negative (Negative); Blood Urine 2+ (Negative); Glucose Urine UA Negative (Negative); Ketones Urine Trace mg/dL (Negative); Leukocyte Esterase Ur 1+ LEU/UL (Negative); Nitrate Urine Positive (Negative); Protein Urine 2+ mg/dL (Negative); Urobilinogen Urine 0.2 mg/dL (<2.0); pH Urine 5.5 (5.0-9.0)
[2021-12-15 00:47] LABS: Add Urine Microscopic? YES; Color Urine Light Yellow (Yellow)
[2021-12-15 00:51] LABS: Bacteria Urine 1+ /hpf; RBC Urine 21-50 /hpf (0-2); Squamous Epithelial Cell Urine Many /hpf (Few); WBC Urine >75 /hpf
--- NOTE | 2021-12-15 00:52 | ED.GENADULT ---
HPI - General Adult General Chief complaint: Upper Respiratory Infection Stated complaint: nasal congestion, cough Time Seen by Provider: 12/15/21 00:09 History of Present Illness HPI narrative: this is a 66-year-old female history of bipolar disorder presenting to ED with chief complaint of cough and congestion x1 week. Patient denies nausea vomiting, chest pain, difficulty breathing. Patient is not vaccinated against flu or COVID. She has had some diarrhea. Her main complaint is that she is tired of dealing with the nasal congestion and would like medication. Related Data Home Medications Medication Instructions Recorded Confirmed clonazepam 1 mg tablet (Klonopin) 1 mg PO BID 03/13/19 04/12/21 risperidone 2 mg tablet (Risperdal) 2 mg PO HS 07/23/19 04/12/21 levothyroxine 50 mcg tablet 50 mcg PO DAILY 09/22/20 04/12/21 benztropine 0.5 mg tablet 0.5 mg PO DAILY 11/20/20 04/12/21 citalopram 20 mg tablet (Celexa) 20 mg PO DAILY 11/20/20 04/12/21 quetiapine 50 mg tablet 50 mg PO DAILY 11/20/20 04/12/21 albuterol sulfate 90 mcg/actuation 2 puff inhalation Q4-6H PRN 04/12/21 04/12/21 aerosol inhaler Wheezing quetiapine 300 mg tablet 300 mg PO HS 04/12/21 04/12/21 Allergies Allergy/AdvReac Type Severity Reaction Status Date / Time sulfamethoxazole Allergy Mild ITCHING/KATE Verified 12/02/21 02:11 H codeine Allergy Unknown Itching Verified 12/02/21 02:11 Penicillins Allergy Unknown Itching Verified 12/02/21 02:11 trimethoprim Allergy Unknown Itching Verified 12/02/21 02:11 diphenhydramine AdvReac Unknown Verified 12/02/21 02:11 [From Benadryl] Review of Systems Review of Systems: CONSTITUTIONAL: Denies night sweats. EYES: No eye pain ENT: Denies rhinorrhea CARDIOVASCULAR: Denies palpitations RESPIRATORY: Denies hemoptysis GASTROINTESTINAL: Denies hematemesis GENITOURINARY: Denies hematuria. SKIN: Denies rash MUSCULOSKELETAL: Denies myalgia. NEUROLOGIC: Denies weakness. PSYCHIATRIC: Denies delusions PMFSH Past Medical History Medical History Ankle fracture, left Anxiety Asthma Bipolar 1 disorder Chronic obstructive pulmonary disease Depression Endometriosis Hypothyroid Irritable bowel syndrome Kidney stones Osteoporosis Pneumonia Surgical History Surgical History History of bilateral hip replacements History of cholecystectomy History of tubal ligation Family History Family History Sibling Patient's sister is in good health Father Acute myocardial infarction Hypertension Mother Family history of diabetes mellitus in first degree relative Other Family history of blood dyscrasia Social History Social History Social History: Surrogate decision maker: Mega Araya, niece. Code status: Full code. Smoking status: Former smoker Second hand tobacco smoke exposure: Yes Additional smoking assessment comments: Quit at the age of 34. Boyfriend is a heavy smoker. Alcohol intake: never Substance use: never Additional living arrangements comments: The patient lives in her own apartment but stays with her boyfriend several days a week. Additional occupation/education comments: Disabled. Course Vital Signs Vital signs: Vital Signs Temperature 98.5 F 12/14/21 21:48 Pulse Rate 93 12/14/21 21:48 Respiratory Rate 20 12/14/21 21:48 Blood Pressure 131/83 12/14/21 21:48 Pulse Oximetry 98 12/14/21 21:48 Oxygen Delivery Room Air 12/14/21 21:48 Temperature 98.5 F 12/14/21 21:48 Pulse Rate 93 12/14/21 21:48 Respiratory Rate 20 12/14/21 21:48 Blood Pressure 131/83 12/14/21 21:48 Pulse Oximetry 98 12/14/21 21:48 Oxygen Delivery Room Air 12/14/21 21:48 Medical Decision Making MDM Narrative Medical decision making narra
[2021-12-15 01:00] LABS: Influenza A QL RT-PCR Negative (Negative); Influenza B QL RT-PCR Negative (Negative); SARS-CoV-2 RNA PCR Negative
[2021-12-15] MEDS: CEPHALEXIN 500 MG CAPSULE PO (02:16)
[2021-12-15] MEDS: guaiFENesin/DEXTROMETHORPHAN 10 ML UDC PO (02:17)
== END 2021-12-15 02:30 | disposition home or self-care (01) ==
PROVIDERS: Family Medicine; Emergency Provider Emergency Medicine; PCP Physician Assistant
DX: J06.9 Acute upper respiratory infection, unspecified (principal); N39.0 Urinary tract infection, site not specified; Z20.822 Contact with and (suspected) exposure to COVID-19; J44.9 Chronic obstructive pulmonary disease, unspecified; N80.9 Endometriosis, unspecified; E03.9 Hypothyroidism, unspecified; K58.9 Irritable bowel syndrome, unspecified; M81.0 Age-related osteoporosis without current pathological fracture; F31.9 Bipolar disorder, unspecified; F41.9 Anxiety disorder, unspecified; Z28.310 Unvaccinated for COVID-19; Z96.643 Presence of artificial hip joint, bilateral; Z87.442 Personal history of urinary calculi; Z87.01 Personal history of pneumonia (recurrent); Z87.891 Personal history of nicotine dependence
CPT/HCPCS: 36415; 71045; 80053; 81001; 83690; 85025; 87086; 87147; 87181; 87186; 87636; 99283; A9270

== ENCOUNTER 2021-12-16 13:12 | Emergency (ER) | payer MEDICARE, MEDICAID, SELFPAY ==
--- NOTE | ~2021-12-16 | CT_ITS ---
EXAMINATION: CT abdomen pelvis w con DATE: 12/16/2021 16:34 INDICATION: Abdominal pain. Diarrhea. TECHNIQUE: Computed tomography (CT) of the abdomen and pelvis was performed with 100 mL Omnipaque 350 intravenous contrast. Automated exposure control and iterative reconstruction technique were employe d. The dose-length product was 772.83 mGy-cm. COMPARISON: CT abdomen and pelvis 06/22/2021 FINDINGS: The visualized portions of the lung bases demonstrate mild atelectasis. No pleural effusion . The heart size is normal. No pericardial effusion. There is a small sliding hiatal hernia. There ar e cysts in the liver measuring up to 3.8 cm. There is mild intrahepatic biliary duct dilatation. Ther e are changes of cholecystectomy. The common bile duct measures 12 mm, increased from 8 mm on 06/23/19 22. The spleen, pancreas, and adrenal glands are normal. There are multiple stones in each kidney jesus suring up to 12 mm on the left. There are cysts in left kidney measuring up to 3.7 cm. There is diver ticulosis of the colon without evidence of diverticulitis. The appendix is normal. There are no patho logically enlarged lymph nodes. There is no free intraperitoneal fluid. There are bilateral total hip arthroplasties. There is mild lumbar spondylosis. IMPRESSION: 1. Small sliding hiatal hernia. 2. Bilateral nonobstructing kidney stones. 3. Mild intrahepatic and extrahepatic biliary duct dilatation status post cholecystectomy. Reviewed, dictated and finalized at location A. R [employer] IMPRESSION: 1. Small sliding hiatal hernia. 2. Bilateral nonobstructing kidney stones. 3. Mild intrahepatic and extrahepatic biliary duct dilatation status post chely cystectomy.
[2021-12-16 13:52] VITALS: BP 120/76; PULSE 79; RESP 14; TEMP 37.1; O2SAT 98
[2021-12-16 15:29] LABS: Basophils Percent Auto 0.4 % (0.2-1.2); Eosinophils Absolute Auto 0.8 K/mm3 (0-0.3); Hemoglobin 13.7 g/dL (12.0-15.0); Immature Granulocyte Absolute 0.02 K/mm3 (0.00-0.031); Immature Granulocyte Percent A 0.3 % (0-0.5); Lymphocytes Percent Auto 41.3 % (18.3-44.2); Mean Corpuscular HGB Conc 32.6 g/dl (32-36); Mean Corpuscular Volume 107.4 fl (80-100); Mean Platelet Volume 8.4 fl (7.4-10.4); Monocytes Absolute Auto 0.4 K/mm3 (0.1-0.6); Monocytes Percent Auto 5.1 % (2.6-8.5); Neutrophils Absolute Auto 3.2 K/mm3 (1.3-6.7); Neutrophils Percent Auto 42.9 % (45.5-73.1); Platelet Count Result 154 k/mm3 (150-375); Red Blood Count 3.91 M/mm3 (4.2-5.4); Red Cell Distribution Width 13.4 % (11.5-14.5); White Blood Count 7.5 K/mm3 (4.5-10.0)
--- NOTE | 2021-12-16 15:32 | ED.GENADULT ---
HPI - General Adult General Chief complaint: Nausea/Vomiting/Diarrhea Stated complaint: diarrhea for approx. 1 week - seen in this ER 12/14 Time Seen by Provider: 12/16/21 15:23 Source: RN notes reviewed History of Present Illness HPI narrative: Patient presents emergency room from home for diarrhea. Patient states that she has had diarrhea for approximately the past 1 week. He is having approximately 3-4 bowel movements a day she states is associate with abdominal pain described as cramping diffusely throughout the abdomen. She denies any fevers or chills chest pain shortness of breath nausea vomiting or any other symptoms. States she is on antibiotics for UTI at this time which she started yesterday Related Data Home Medications Medication Instructions Recorded Confirmed clonazepam 1 mg tablet (Klonopin) 1 mg PO BID 03/13/19 04/12/21 risperidone 2 mg tablet (Risperdal) 2 mg PO HS 07/23/19 04/12/21 levothyroxine 50 mcg tablet 50 mcg PO DAILY 09/22/20 04/12/21 benztropine 0.5 mg tablet 0.5 mg PO DAILY 11/20/20 04/12/21 citalopram 20 mg tablet (Celexa) 20 mg PO DAILY 11/20/20 04/12/21 quetiapine 50 mg tablet 50 mg PO DAILY 11/20/20 04/12/21 albuterol sulfate 90 mcg/actuation 2 puff inhalation Q4-6H PRN 04/12/21 04/12/21 aerosol inhaler Wheezing quetiapine 300 mg tablet 300 mg PO HS 04/12/21 04/12/21 Allergies Allergy/AdvReac Type Severity Reaction Status Date / Time sulfamethoxazole Allergy Mild ITCHING/KATE Verified 12/16/21 13:13 H codeine Allergy Unknown Itching Verified 12/16/21 13:13 Penicillins Allergy Unknown Itching Verified 12/16/21 13:13 trimethoprim Allergy Unknown Itching Verified 12/16/21 13:13 diphenhydramine AdvReac Unknown Verified 12/16/21 13:13 [From Benadryl] Review of Systems Review of Systems: Gen.: Denies fevers or chills ENT: Denies congestion Respiratory: Denies shortness of breath or cough CV: Denies chest pain or palpitations GI see HPI d reports current UTI Musculoskeletal: Denies back pain or muscle pain Neuro: Denies numbness, tingling, weakness or focal weakness Skin: Denies rash Except as documented, all other systems reviewed and negative [facility] Past Medical History Medical History Ankle fracture, left Anxiety Asthma Bipolar 1 disorder Chronic obstructive pulmonary disease Depression Endometriosis Hypothyroid Irritable bowel syndrome Kidney stones Osteoporosis Pneumonia Surgical History Surgical History History of bilateral hip replacements History of cholecystectomy History of tubal ligation Family History Family History Sibling Patient's sister is in good health Father Acute myocardial infarction Hypertension Mother Family history of diabetes mellitus in first degree relative Other Family history of blood dyscrasia Social History Social History Social History: Surrogate decision maker: Mega Araya, niece. Code status: Full code. Smoking status: Former smoker Second hand tobacco smoke exposure: Yes Additional smoking assessment comments: Quit at the age of 34. Boyfriend is a heavy smoker. Alcohol intake: never Substance use: never Additional living arrangements comments: The patient lives in her own apartment but stays with her boyfriend several days a week. Additional occupation/education comments: Disabled. Exam Narrative: APPEARANCE: No acute distress, nontoxic, resting in bed HEENT: Normocephalic, atraumatic, OMM RESPIRATORY: No respiratory distress, clear to auscultation bilaterally with no rhonchi wheezing or rales CARDIOVASCULAR: RRR s murmur ABDOMINAL: Soft nondistended diffusely tender to no rebound or guarding MUSCULOSKELETAl: Moves all extremities. No clubbing, cyanosis or edema. NEURO: Awake and
[2021-12-16 15:43] LABS: Alanine Aminotransferase 83 U/L (6-35); Albumin Level 4.2 g/dL (3.5-5.1); Alkaline Phosphatase 165 U/L (38-126); Anion Gap 12 mmol/L (8-16); Aspartate Amino Transferase 59 U/L (14-36); Bilirubin,Total 0.5 mg/dL (0.2-1.3); Blood Urea Nitrogen 11 mg/dL (7-17); Calcium 9.5 mg/dL (8.4-10.2); Carbon Dioxide 26 mmol/L (22-30); Chloride 107 mmol/L (98-107); Estimated CRCL calculation 41 ml/min; Estimated Glomerular Filt Rate 41; Glucose 92 mg/dL (65-110); Lipase 54 U/L (23-300); Potassium 4.1 mmol/L (3.4-5.0); Sodium 145 mmol/L (137-145)
[2021-12-16] MEDS: SODIUM CHLORIDE 0.9% IV 1,000 ML 999 ML IV CONT (16:06)
[2021-12-16 16:11] LABS: Lactic Acid Reflex 1.3 mmol/L (0.7-2.0)
[2021-12-16 16:16] LABS: Influenza A QL RT-PCR Negative (Negative); Influenza B QL RT-PCR Negative (Negative); SARS-CoV-2 RNA PCR Negative
[2021-12-16 17:34] VITALS: BP 139/86; PULSE 78; RESP 16; O2SAT 97
== END 2021-12-16 17:34 | disposition home or self-care (01) ==
PROVIDERS: Emergency Provider Emergency Medicine; PCP Physician Assistant
DX: K58.0 Irritable bowel syndrome with diarrhea (principal); N39.0 Urinary tract infection, site not specified; Z20.822 Contact with and (suspected) exposure to COVID-19; J45.909 Unspecified asthma, uncomplicated; E03.9 Hypothyroidism, unspecified; M81.0 Age-related osteoporosis without current pathological fracture; F41.9 Anxiety disorder, unspecified; F31.9 Bipolar disorder, unspecified; Z87.01 Personal history of pneumonia (recurrent); Z96.643 Presence of artificial hip joint, bilateral; Z87.891 Personal history of nicotine dependence; K44.9 Diaphragmatic hernia without obstruction or gangrene; N20.0 Calculus of kidney
CPT/HCPCS: 36415; 74177; 80053; 83605; 83690; 83735; 85025; 87636; 96365; 99284; J0131; J7030; Q9967

== ENCOUNTER 2022-07-16 22:31 | Emergency (ER) | payer MEDICARE, MEDICAID, SELFPAY ==
[2022-07-16 23:46] VITALS: BP 142/72; RESP 20; TEMP 36.9; O2SAT 100
--- NOTE | 2022-07-17 03:05 | ED.GENADULT ---
HPI - General Adult General Chief complaint: Eye Problems Stated complaint: left eye pink Time Seen by Provider: 07/17/22 02:59 History of Present Illness HPI narrative: Patient is a 67-year-old female who presents the emergency department with chief complaint of red itchy left eye. Patient reports no trauma reports no changes in her vision reports that she noticed her conjunctive a was red and inflamed and that she had some mucoid discharge out of her eye. The patient denies fever denies runny nose or sore throat. Related Data Home Medications Medication Instructions Recorded Confirmed clonazepam 1 mg tablet (Klonopin) 1 mg PO BID 03/13/19 04/12/21 risperidone 2 mg tablet (Risperdal) 2 mg PO HS 07/23/19 04/12/21 levothyroxine 50 mcg tablet 50 mcg PO DAILY 09/22/20 04/12/21 benztropine 0.5 mg tablet 0.5 mg PO DAILY 11/20/20 04/12/21 citalopram 20 mg tablet (Celexa) 20 mg PO DAILY 11/20/20 04/12/21 quetiapine 50 mg tablet 50 mg PO DAILY 11/20/20 04/12/21 albuterol sulfate 90 mcg/actuation 2 puff inhalation Q4-6H PRN 04/12/21 04/12/21 aerosol inhaler Wheezing quetiapine 300 mg tablet 300 mg PO HS 04/12/21 04/12/21 Allergies Allergy/AdvReac Type Severity Reaction Status Date / Time sulfamethoxazole Allergy Mild ITCHING/KATE Verified 07/17/22 01:10 H codeine Allergy Unknown Itching Verified 07/17/22 01:10 Penicillins Allergy Unknown Itching Verified 07/17/22 01:10 trimethoprim Allergy Unknown Itching Verified 07/17/22 01:10 diphenhydramine AdvReac Unknown Verified 07/17/22 01:10 [From Benadryl] Review of Systems Review of Systems: A 10 system review of systems was completed on the patient and is negative except for what is stated in the HPI. Nursing and ancillary documentation was reviewed. [facility] Past Medical History Medical History Ankle fracture, left Anxiety Asthma Bipolar 1 disorder Chronic obstructive pulmonary disease Depression Endometriosis Hypothyroid Irritable bowel syndrome Kidney stones Osteoporosis Pneumonia Surgical History Surgical History History of bilateral hip replacements History of cholecystectomy History of tubal ligation Family History Family History Sibling Patient's sister is in good health Father Acute myocardial infarction Hypertension Mother Family history of diabetes mellitus in first degree relative Other Family history of blood dyscrasia Social History Social History Social History: Surrogate decision maker: Mega Araya, niece. Code status: Full code. Smoking status: Former smoker Second hand tobacco smoke exposure: Yes Additional smoking assessment comments: Quit at the age of 34. Boyfriend is a heavy smoker. Alcohol intake: never Substance use: never Living arrangements: alone Additional living arrangements comments: The patient lives in her own apartment but stays with her boyfriend several days a week. Additional occupation/education comments: Disabled. Exam Narrative: GENERAL: Well-appearing, well-nourished, and in no acute distress. HEAD: Normocephalic, atraumatic. EYES: PERRLA and EOMI. left conjunctive is injected there is no fluorescein uptake or foreign body ENT: Nares clear, no rhinorrhea or epistaxis. Mucous membranes moist. NECK: Supple. CHEST: Clear to auscultation. No respiratory distress. HEART: Regular rate and rhythm. No murmur heard. Normal peripheral pulses. ABDOMEN: Soft, nontender, nondistended, normal active bowel sounds. EXTREMITIES: Normal range of motion. No edema. SKIN: Warm, dry, no rash. NEURO: No focal deficits. Alert and oriented x3. PSYCH: Normal mood and affect. Course Vital Signs Vital signs: Vital Signs Temperature 36.9 C
[2022-07-17] MEDS: OFLOXACIN 0.3% OPHTH SOLN 5 ML BTL 1 DROP EACH EYE (03:16)
== END 2022-07-17 03:25 | disposition home or self-care (01) ==
PROVIDERS: Emergency Provider Emergency Medicine; PCP Physician Assistant
DX: H10.32 Unspecified acute conjunctivitis, left eye (principal); F41.9 Anxiety disorder, unspecified; J45.909 Unspecified asthma, uncomplicated; F32.A Depression, unspecified; E03.9 Hypothyroidism, unspecified
CPT/HCPCS: 99283; A9270

== ENCOUNTER 2022-07-29 14:52 | Outpatient (CLI) | payer MEDICARE, MEDICAID, SELFPAY ==
--- NOTE | ~2022-07-29 | MM_ITS ---
EXAMINATION: MM screening ezequiel BI w cristiane HISTORY: Screening mammogram TECHNIQUE: Craniocaudal and mediolateral oblique 3-D tomosynthesis images were obtained and synthetic 2-D images were generated. CAD analysis was submitted and interpreted. COMPARISON: 04/27/2021, 04/14/2020 bilateral screening mammogram examinations 02/13/2019 diagnostic left mammogram and complete left breast ultrasound examination 07/07/2018 bilateral screening mammogram BREAST PARENCHYMAL COMPOSITION: The breasts are heterogeneously dense, which may obscure small masses . FINDINGS: Numerous circumscribed opacities of variable size are scattered throughout both breasts, co nsistent with multiple breast cysts. Some have halo sign. No suspicious mass, architectural distortion, malignant calcification, skin thickening or retraction of either breast is detected. There is no evidence of suspicious mass, calcification, or architectura l distortion to suggest malignancy in either breast. There has been no suspicious interval change. IMPRESSION: 1. Multiple bilateral breast probable cysts No mammographic evidence of malignancy. 2. Recommend routine screening mammography in one year. BI-RADS Category 2: Benign finding(s). Reviewed, dictated and finalized at location A. IMPRESSION: 1. Multiple bilateral breast probable cysts No mammographic evidence of maligna ncy. 2. Recommend routine screening mammography in one year. BI-RADS Category 2: Benign finding(s).
== END 2022-07-29 14:53 | disposition home or self-care (01) ==
LOC: ANHIMG 14:54
PROVIDERS: PCP Physician Assistant; Visit Provider Physician Assistant
DX: Z12.31 Encounter for screening mammogram for malignant neoplasm of breast (principal)
CPT/HCPCS: 77063; 77067

== ENCOUNTER 2022-09-15 23:29 | Emergency (ER) | payer MEDICARE, MEDICAID, SELFPAY ==
--- NOTE | ~2022-09-15 | XR_ITS ---
Left foot Technique: AP and lateral views were obtained. Clinical History: Injury Findings: No acute fracture or dislocation is seen. Prior ORIF hardware noted at the medial and later al malleoli. Osseous alignment is anatomic. Joint spaces are preserved without erosive or degenerativ e change. Soft tissues are unremarkable. Impression: No acute abnormality. Prior ORIF at the medial and lateral malleoli. Reviewed, dictated and finalized at location . Impression: No acute abnormality. Prior ORIF at the medial and lateral malleoli.
[2022-09-15 23:31] VITALS: BP 135/79; PULSE 111; RESP 16; TEMP 36.3; O2SAT 97
--- NOTE | 2022-09-15 23:57 | ED.GENADULT ---
HPI - General Adult General Chief complaint: Wound/Laceration Stated complaint: L foot laceration Time Seen by Provider: 09/15/22 23:38 Source: patient Mode of arrival: ambulatory Limitations: no limitations History of Present Illness HPI narrative: This is a 67-year-old female who presents to the ED with chief complaint of a laceration to the left foot following injury this evening just prior to arrival. Patient states she was putting a kitchen knife away when she excellently dropped it. She states he landed straight down onto the left foot. Reports a lot of bleeding at the time so she came to the ER. Reports mild throbbing in the area but no difficulty with ambulation. Denies numbness, weakness, any further site of pain or injury. Related Data Home Medications Medication Instructions Recorded Confirmed clonazepam 1 mg tablet (Klonopin) 1 mg PO BID 03/13/19 04/12/21 risperidone 2 mg tablet (Risperdal) 2 mg PO HS 07/23/19 04/12/21 levothyroxine 50 mcg tablet 50 mcg PO DAILY 09/22/20 04/12/21 benztropine 0.5 mg tablet 0.5 mg PO DAILY 11/20/20 04/12/21 citalopram 20 mg tablet (Celexa) 20 mg PO DAILY 11/20/20 04/12/21 quetiapine 50 mg tablet 50 mg PO DAILY 11/20/20 04/12/21 albuterol sulfate 90 mcg/actuation 2 puff inhalation Q4-6H PRN 04/12/21 04/12/21 aerosol inhaler Wheezing quetiapine 300 mg tablet 300 mg PO HS 04/12/21 04/12/21 Allergies Allergy/AdvReac Type Severity Reaction Status Date / Time sulfamethoxazole Allergy Mild ITCHING/KATE Verified 07/17/22 01:10 H codeine Allergy Unknown Itching Verified 07/17/22 01:10 Penicillins Allergy Unknown Itching Verified 07/17/22 01:10 trimethoprim Allergy Unknown Itching Verified 07/17/22 01:10 diphenhydramine AdvReac Unknown Verified 07/17/22 01:10 [From Benadryl] Review of Systems Review of Systems: All systems as dictated in [facility] Past Medical History Medical History Ankle fracture, left Anxiety Asthma Bipolar 1 disorder Chronic obstructive pulmonary disease Depression Endometriosis Hypothyroid Irritable bowel syndrome Kidney stones Osteoporosis Pneumonia Surgical History Surgical History History of bilateral hip replacements History of cholecystectomy History of tubal ligation Family History Family History Sibling Patient's sister is in good health Father Acute myocardial infarction Hypertension Mother Family history of diabetes mellitus in first degree relative Other Family history of blood dyscrasia Social History Social History Social History: Surrogate decision maker: Mega Araya niece. Code status: Full code. Smoking status: Former smoker Second hand tobacco smoke exposure: Yes Additional smoking assessment comments: Quit at the age of 34. Boyfriend is a heavy smoker. Alcohol intake: never Substance use: never Living arrangements: alone Additional living arrangements comments: The patient lives in her own apartment but stays with her boyfriend several days a week. Additional occupation/education comments: Disabled. Exam Narrative: GENERAL: Well-appearing, well-nourished, and in no acute distress. HEAD: Normocephalic, atraumatic. EYES: PERRLA and EOMI. ENT: Nares clear, no rhinorrhea or epistaxis. Mucous membranes moist. Oropharynx without tonsillar hypertrophy exudate or other lesions. NECK: Supple. No adenopathy or masses. CHEST: No respiratory distress. Clear to auscultation. No wheezes rales or rhonchi HEART: Regular rate and rhythm. No murmur heard. Normal peripheral pulses. ABDOMEN: Soft, nontender, nondistended, normal active bowel sounds. MSK: Normal range of motion. No edema. Ambulatory. SKIN: 3 mm laceration with no active bleeding to
[2022-09-16 00:32] VITALS: BP 125/72; PULSE 83; RESP 15; TEMP 36.7; O2SAT 97
== END 2022-09-16 00:33 | disposition home or self-care (01) ==
PROVIDERS: Emergency Provider Physician Assistant; PCP Physician Assistant
DX: S91.312A Laceration without foreign body, left foot, initial encounter (principal); J44.9 Chronic obstructive pulmonary disease, unspecified; E03.9 Hypothyroidism, unspecified; K58.9 Irritable bowel syndrome, unspecified; N80.9 Endometriosis, unspecified; M81.0 Age-related osteoporosis without current pathological fracture; F41.9 Anxiety disorder, unspecified; F31.9 Bipolar disorder, unspecified; Z96.643 Presence of artificial hip joint, bilateral; Z87.442 Personal history of urinary calculi; Z87.01 Personal history of pneumonia (recurrent); Z87.891 Personal history of nicotine dependence; Z90.49 Acquired absence of other specified parts of digestive tract; W26.0XXA Contact with knife, initial encounter
CPT/HCPCS: 73620; 99283

== ENCOUNTER 2022-09-29 21:09 | Emergency (ER) | payer MEDICARE, MEDICAID, SELFPAY ==
[2022-09-29 21:11] VITALS: BP 149/85; PULSE 93; RESP 17; TEMP 36.5; O2SAT 96
--- NOTE | 2022-09-29 22:05 | ED.GENADULT ---
HPI - General Adult General Chief complaint: Wound/Laceration Stated complaint: L. hand abrasion/laceration Time Seen by Provider: 09/29/22 21:44 History of Present Illness HPI narrative: 67-year-old female presented the emergency department for evaluation of superficial lacerations to the dorsum of her left hand. Patient states these occurred while she was trying to slice of bread. Patient reports that her last tetanus shot was approximately 5 years ago. Patient denies any other pain or injury Related Data Home Medications Medication Instructions Recorded Confirmed clonazepam 1 mg tablet (Klonopin) 1 mg PO BID 03/13/19 04/12/21 risperidone 2 mg tablet (Risperdal) 2 mg PO HS 07/23/19 04/12/21 levothyroxine 50 mcg tablet 50 mcg PO DAILY 09/22/20 04/12/21 benztropine 0.5 mg tablet 0.5 mg PO DAILY 11/20/20 04/12/21 citalopram 20 mg tablet (Celexa) 20 mg PO DAILY 11/20/20 04/12/21 quetiapine 50 mg tablet 50 mg PO DAILY 11/20/20 04/12/21 albuterol sulfate 90 mcg/actuation 2 puff inhalation Q4-6H PRN 04/12/21 04/12/21 aerosol inhaler Wheezing quetiapine 300 mg tablet 300 mg PO HS 04/12/21 04/12/21 Allergies Allergy/AdvReac Type Severity Reaction Status Date / Time sulfamethoxazole Allergy Mild ITCHING/KATE Verified 07/17/22 01:10 H codeine Allergy Unknown Itching Verified 07/17/22 01:10 Penicillins Allergy Unknown Itching Verified 07/17/22 01:10 trimethoprim Allergy Unknown Itching Verified 07/17/22 01:10 diphenhydramine AdvReac Unknown Verified 07/17/22 01:10 [From Benadryl] Review of Systems Review of Systems: All systems reviewed & are unremarkable except as noted in HPI and below PMFSH Past Medical History Medical History Ankle fracture, left Anxiety Asthma Bipolar 1 disorder Chronic obstructive pulmonary disease Depression Endometriosis Hypothyroid Irritable bowel syndrome Kidney stones Osteoporosis Pneumonia Surgical History Surgical History History of bilateral hip replacements History of cholecystectomy History of tubal ligation Family History Family History Sibling Patient's sister is in good health Father Acute myocardial infarction Hypertension Mother Family history of diabetes mellitus in first degree relative Other Family history of blood dyscrasia Social History Social History Social History: Surrogate decision maker: Mega Araya, niece. Code status: Full code. Smoking status: Former smoker Second hand tobacco smoke exposure: Yes Additional smoking assessment comments: Quit at the age of 34. Boyfriend is a heavy smoker. Alcohol intake: never Substance use: never Living arrangements: alone Additional living arrangements comments: The patient lives in her own apartment but stays with her boyfriend several days a week. Additional occupation/education comments: Disabled. Exam Narrative: APPEARANCE: Well appearing, no pain, no distress, well-nourished. HEAD: normocephalic, atraumatic. EYES: PERRLA/EOMI, conjunctivae clear. NOSE: Normal no drainage NECK: Supple. No adenopathy, no masses. RESPIRATORY: Airway patent, respirations nonlabored. Clear to auscultation bilaterally, no rales, rhonchi, wheezing. CARDIOVASCULAR: Regular rate and rhythm without murmurs rubs or gallops. ABDOMINAL: Soft, nontender, nondistended, normal bowel sounds MUSCULOSKELETAL: Moves all extremities. Strength/ROM intact, No edema, No calf tenderness. NEURO: Alert. Cranial nerves II through XII intact. SKIN: Superficial lacerations to the dorsum of the left hand Course Course Emergency Course: 67-year-old female presented to the ED for evaluation laceration to the dorsum of her hand. Superficial laceration was repaired with Steri-
== END 2022-09-29 22:15 | disposition home or self-care (01) ==
PROVIDERS: Emergency Provider Emergency Medicine; PCP Physician Assistant
DX: S61.412A Laceration without foreign body of left hand, initial encounter (principal); J44.9 Chronic obstructive pulmonary disease, unspecified; E03.9 Hypothyroidism, unspecified; N80.9 Endometriosis, unspecified; K58.9 Irritable bowel syndrome, unspecified; M81.0 Age-related osteoporosis without current pathological fracture; F41.9 Anxiety disorder, unspecified; F31.9 Bipolar disorder, unspecified; Z96.643 Presence of artificial hip joint, bilateral; Z87.442 Personal history of urinary calculi; Z87.01 Personal history of pneumonia (recurrent); Z87.891 Personal history of nicotine dependence; Z90.49 Acquired absence of other specified parts of digestive tract; W26.0XXA Contact with knife, initial encounter; Y93.G1 Activity, food preparation and clean up
CPT/HCPCS: 99282

== ENCOUNTER 2022-10-26 07:00 | Emergency (ER) | payer MEDICARE, MEDICAID, SELFPAY ==
--- NOTE | ~2022-10-26 | XR_ITS ---
EXAMINATION: XR chest 1V portable INDICATION: Cough and asthma TECHNIQUE: Portable AP chest at 0815 hours COMPARISON: 12/15/2021 FINDINGS: The lungs are free of acute opacities. No pleural effusion or pneumothorax. The cardiomedia stinal silhouette is normal. IMPRESSION: 1. No acute cardiopulmonary abnormality. Reviewed, dictated and finalized at location L.
[2022-10-26 07:05] VITALS: BP 153/79; PULSE 93; RESP 16; TEMP 36.6; O2SAT 97
--- NOTE | 2022-10-26 07:25 | ED.GENADULT ---
HPI - General Adult General Chief complaint: Shortness of Breath/Dyspnea Stated complaint: sob Time Seen by Provider: 10/26/22 07:16 History of Present Illness HPI narrative: 67-year-old female presented to the emergency department for evaluation of nasal congestion sore throat and cough that has been ongoing for the last few days. Patient does report increased phlegm production. Patient states she does have seasonal allergies and feels that this has been worsened by her doing some recent weeding. Patient states she does have a nebulizer at home that she often uses but it was not working this morning. Related Data Home Medications Medication Instructions Recorded Confirmed clonazepam 1 mg tablet (Klonopin) 1 mg PO BID 03/13/19 04/12/21 risperidone 2 mg tablet (Risperdal) 2 mg PO HS 07/23/19 04/12/21 levothyroxine 50 mcg tablet 50 mcg PO DAILY 09/22/20 04/12/21 benztropine 0.5 mg tablet 0.5 mg PO DAILY 11/20/20 04/12/21 citalopram 20 mg tablet (Celexa) 20 mg PO DAILY 11/20/20 04/12/21 quetiapine 50 mg tablet 50 mg PO DAILY 11/20/20 04/12/21 albuterol sulfate 90 mcg/actuation 2 puff inhalation Q4-6H PRN 04/12/21 04/12/21 aerosol inhaler Wheezing quetiapine 300 mg tablet 300 mg PO HS 04/12/21 04/12/21 Allergies Allergy/AdvReac Type Severity Reaction Status Date / Time sulfamethoxazole Allergy Mild ITCHING/KATE Verified 07/17/22 01:10 H codeine Allergy Unknown Itching Verified 07/17/22 01:10 Penicillins Allergy Unknown Itching Verified 07/17/22 01:10 trimethoprim Allergy Unknown Itching Verified 07/17/22 01:10 diphenhydramine AdvReac Unknown Verified 07/17/22 01:10 [From Benadryl] Review of Systems Review of Systems: All systems reviewed & are unremarkable except as noted in HPI and below PMFSH Past Medical History Medical History Ankle fracture, left Anxiety Asthma Bipolar 1 disorder Chronic obstructive pulmonary disease Depression Endometriosis Hypothyroid Irritable bowel syndrome Kidney stones Osteoporosis Pneumonia Surgical History Surgical History History of bilateral hip replacements History of cholecystectomy History of tubal ligation Family History Family History Sibling Patient's sister is in good health Father Acute myocardial infarction Hypertension Mother Family history of diabetes mellitus in first degree relative Other Family history of blood dyscrasia Social History Social History Social History: Surrogate decision maker: Mega Araya, niece. Code status: Full code. Smoking status: Former smoker Second hand tobacco smoke exposure: Yes Additional smoking assessment comments: Quit at the age of 34. Boyfriend is a heavy smoker. Alcohol intake: never Substance use: never Living arrangements: alone Additional living arrangements comments: The patient lives in her own apartment but stays with her boyfriend several days a week. Additional occupation/education comments: Disabled. Exam Narrative: APPEARANCE: Well appearing, no pain, no distress, well-nourished. HEAD: normocephalic, atraumatic. EYES: PERRLA/EOMI, conjunctivae clear. NOSE: Normal no drainage EARS:TMS clear with good light reflex. THROAT: Pharynx clear, no exudate. NECK: Supple. No adenopathy, no masses. RESPIRATORY: Airway patent, expiratory wheeze CARDIOVASCULAR: Regular rate and rhythm without murmurs rubs or gallops. ABDOMINAL: Soft, nontender, nondistended, normal bowel sounds MUSCULOSKELETAL: Moves all extremities. Strength/ROM intact, No edema, No calf tenderness. NEURO: Alert. Cranial nerves II through XII intact. Grossly intact SKIN: Warm, dry. Normal Color Course Course Emergency Course: 67-year-old female presented to the ED for
[2022-10-26 07:35] VITALS: PULSE 80; RESP 22
[2022-10-26] MEDS: ALBUTEROL SULFATE NEB 2.5 MG/3 ML INH INHALATION ×2 (07:39→08:01)
[2022-10-26 07:48] VITALS: PULSE 80; RESP 17
[2022-10-26 07:57] VITALS: PULSE 85; RESP 19
[2022-10-26 07:58] LABS: Strep Group A RT-PCR NOT DETECTED (Negative)
[2022-10-26 08:09] LABS: Influenza A QL RT-PCR Negative (Negative); Influenza B QL RT-PCR Negative (Negative); RSV RNA, RT-PCR Negative (Negative); SARS-CoV-2 RNA PCR Negative (Negative)
[2022-10-26 08:10] VITALS: PULSE 89; RESP 17
== END 2022-10-26 09:34 | disposition home or self-care (01) ==
PROVIDERS: Emergency Provider Emergency Medicine; PCP Physician Assistant
DX: T78.49XA Other allergy, initial encounter (principal); J45.909 Unspecified asthma, uncomplicated; E03.9 Hypothyroidism, unspecified; J44.9 Chronic obstructive pulmonary disease, unspecified; Z87.891 Personal history of nicotine dependence; Z20.822 Contact with and (suspected) exposure to COVID-19
CPT/HCPCS: 71045; 87637; 87651; 94640; 99283

== ENCOUNTER 2022-10-28 13:10 | Outpatient (CLI) | payer MEDICARE, MEDICAID, SELFPAY ==
[2022-10-28 16:36] LABS: Basophils Percent Auto 0.3 % (0.2-1.2); Eosinophils Absolute Auto 0.9 K/mm3 (0-0.3); Eosinophils Percent Auto 12.1 % (0-4.4); Hematocrit 38.8 % (37.0-47.0); Hemoglobin 12.5 g/dL (12.0-15.0); Immature Granulocyte Absolute 0.02 K/mm3 (0.00-0.031); Immature Granulocyte Percent A 0.3 % (0-0.5); Lymphocytes Absolute Auto 3.32 K/mm3 (0.9-3.2); Lymphocytes Percent Auto 46.8 % (18.3-44.2); Mean Corpuscular HGB Conc 32.2 g/dl (32-36); Mean Corpuscular Hemoglobin 34.8 pg (26-34); Mean Corpuscular Volume 108.1 fl (80-100); Mean Platelet Volume 8.7 fl (7.4-10.4); Monocytes Absolute Auto 0.4 K/mm3 (0.1-0.6); Monocytes Percent Auto 5.4 % (2.6-8.5); Neutrophils Absolute Auto 2.5 K/mm3 (1.3-6.7); Neutrophils Percent Auto 35.1 % (45.5-73.1); Platelet Count Result 177 k/mm3 (150-375); Red Blood Count 3.59 M/mm3 (4.2-5.4); White Blood Count 7.1 K/mm3 (4.5-10.0)
[2022-10-28 16:43] LABS: Appearance Urine Cloudy (Clear); Bacteria Urine Rare /hpf; Bilirubin Urine Negative (Negative); Blood Urine 1+ (Negative); Color Urine Yellow (Yellow); Glucose Urine UA Negative (Negative); Ketones Urine Negative (Negative); Leukocyte Esterase Ur 3+ LEU/UL (Negative); Nitrate Urine Positive (Negative); Non Pathogenic Casts 0-2; Protein Urine Trace mg/dL (Negative); Squamous Epithelial Cell Urine Occasional /hpf (Few); Urobilinogen Urine 0.2 mg/dL (<2.0); WBC Urine >100 /hpf
[2022-10-28 16:48] LABS: Add Urine Microscopic? YES
[2022-10-28 17:25] LABS: Alanine Aminotransferase 21 U/L (6-35); Alkaline Phosphatase 94 U/L (38-126); Anion Gap 5 mmol/L (8-16); Aspartate Amino Transferase 37 U/L (14-36); Bilirubin,Total 0.5 mg/dL (0.2-1.3); Blood Urea Nitrogen 18 mg/dL (7-17); Calcium 10.2 mg/dL (8.4-10.2); Carbon Dioxide 32 mmol/L (22-30); Chloride 102 mmol/L (98-107); Cholesterol 193 mg/dL (0-200); Estimated Glomerular Filt Rate 55; Glucose 98 mg/dL (65-110); HDL Direct 55 mg/dL; Potassium 4.2 mmol/L (3.4-5.0); Sodium 139 mmol/L (137-145); Triglycerides 104 mg/dL (<150)
[2022-10-28 17:36] LABS: LDL Cholesterol Direct 91 mg/dL
[2022-10-28 17:54] LABS: Thyroid Stimulating Hormone 0.913 uIU/mL (0.465-4.680)
[2022-10-28 18:43] LABS: Hemoglobin A1C 5.5 % (<5.7)
[2022-10-28 18:52] LABS: Free T4 Free Thyroxine 1.23 ng/mL (0.78-2.19); Vitamin D 25 Hydroxy 30.1 ng/mL
== END 2022-10-28 13:11 | disposition home or self-care (01) ==
LOC: ANHWCLAB 13:11
PROVIDERS: PCP Physician Assistant; Visit Provider Physician Assistant
DX: E03.9 Hypothyroidism, unspecified (principal); R73.09 Other abnormal glucose; N39.0 Urinary tract infection, site not specified; Z79.899 Other long term (current) drug therapy; M81.0 Age-related osteoporosis without current pathological fracture; E78.5 Hyperlipidemia, unspecified
CPT/HCPCS: 36415; 80048; 80061; 80076; 81001; 82306; 83036; 84439; 84443; 85025; 87077; 87086; 87088; 87186

== ENCOUNTER 2022-12-18 20:05 | Emergency (ER) | payer MEDICARE, MEDICAID, SELFPAY ==
[2022-12-18 20:06] VITALS: BP 153/92; PULSE 100; RESP 14; TEMP 36.3; O2SAT 97
--- NOTE | 2022-12-18 20:39 | ED.GENADULT ---
HPI - General Adult General Chief complaint: Skin/Abscess/Foreign Body Stated complaint: wound? Time Seen by Provider: 12/18/22 20:39 Source: patient Mode of arrival: ambulatory Limitations: no limitations History of Present Illness HPI narrative: 67 years old white female came to the hospital by private car complaining of irritation and skin rash at the right groin area worse than the left groin area started few days ago. Patient denies any fever or chills or nausea or vomiting. Related Data Home Medications Medication Instructions Recorded Confirmed clonazepam 1 mg tablet (Klonopin) 1 mg PO BID 03/13/19 04/12/21 risperidone 2 mg tablet (Risperdal) 2 mg PO HS 07/23/19 04/12/21 levothyroxine 50 mcg tablet 50 mcg PO DAILY 09/22/20 04/12/21 benztropine 0.5 mg tablet 0.5 mg PO DAILY 11/20/20 04/12/21 citalopram 20 mg tablet (Celexa) 20 mg PO DAILY 11/20/20 04/12/21 quetiapine 50 mg tablet 50 mg PO DAILY 11/20/20 04/12/21 albuterol sulfate 90 mcg/actuation 2 puff inhalation Q4-6H PRN 04/12/21 04/12/21 aerosol inhaler Wheezing quetiapine 300 mg tablet 300 mg PO HS 04/12/21 04/12/21 Allergies Allergy/AdvReac Type Severity Reaction Status Date / Time sulfamethoxazole Allergy Mild ITCHING/KATE Verified 12/18/22 20:24 H codeine Allergy Unknown Itching Verified 12/18/22 20:24 Penicillins Allergy Unknown Itching Verified 12/18/22 20:24 trimethoprim Allergy Unknown Itching Verified 12/18/22 20:24 diphenhydramine AdvReac Unknown Verified 12/18/22 20:24 [From Benadryl] Review of Systems Review of Systems: All systems reviewed & are unremarkable except as noted in HPI and below PMFSH Past Medical History Medical History Ankle fracture, left Anxiety Asthma Bipolar 1 disorder Chronic obstructive pulmonary disease Depression Endometriosis Hypothyroid Irritable bowel syndrome Kidney stones Osteoporosis Pneumonia Surgical History Surgical History History of bilateral hip replacements History of cholecystectomy History of tubal ligation Family History Family History Sibling Patient's sister is in good health Father Acute myocardial infarction Hypertension Mother Family history of diabetes mellitus in first degree relative Other Family history of blood dyscrasia Social History Social History Social History: Surrogate decision maker: Mega Araya, niece. Code status: Full code. Smoking status: Former smoker Second hand tobacco smoke exposure: Yes Additional smoking assessment comments: Quit at the age of 34. Boyfriend is a heavy smoker. Alcohol intake: never Substance use: never Living arrangements: alone Additional living arrangements comments: The patient lives in her own apartment but stays with her boyfriend several days a week. Additional occupation/education comments: Disabled. Exam Narrative: General appearance: Well-developed, well-nourished Skin: Normal color, right groin area showed red erythematous skin, moist, consistent with candidiasis. More on the right side than the left side Head: Normocephalic, nontraumatic Chest and respiratory: Airway patent, no respiratory distress, no accessory muscle use Heart: Regular rate/rhythm Abdomen: Soft, nontender, no organomegaly, quiet bowel sounds Musculoskeletal: Normal range of motion, nontender back Neurologic: Alert and oriented ?3, [employer]ICIAN is normal as tested, no gross motor deficit Course Vital Signs Vital signs: Vital Signs
== END 2022-12-18 21:27 | disposition home or self-care (01) ==
LOC: ANHED 21:07
PROVIDERS: Emergency Provider Emergency Medicine; PCP Physician Assistant
DX: B37.2 Candidiasis of skin and nail (principal); J44.9 Chronic obstructive pulmonary disease, unspecified; N80.9 Endometriosis, unspecified; E03.9 Hypothyroidism, unspecified; K58.9 Irritable bowel syndrome, unspecified; M81.0 Age-related osteoporosis without current pathological fracture; F41.9 Anxiety disorder, unspecified; F31.9 Bipolar disorder, unspecified; Z96.643 Presence of artificial hip joint, bilateral; Z87.01 Personal history of pneumonia (recurrent); Z87.442 Personal history of urinary calculi; Z87.891 Personal history of nicotine dependence; Z90.49 Acquired absence of other specified parts of digestive tract
CPT/HCPCS: 99283

== ENCOUNTER 2022-12-23 16:55 | Emergency (ER) | payer MEDICARE, MEDICAID, SELFPAY ==
--- NOTE | 2022-12-23 16:54 | PC.NURSE ---
Pt arrived by EMS, states she wants to go home now. Pt would not like to be seen by provider.
== END 2022-12-23 17:05 | disposition left against medical advice (07) ==
LOC: ANHED 17:02
PROVIDERS: PCP Physician Assistant
DX: Z53.21 Procedure and treatment not carried out due to patient leaving prior to being seen by health care provider (principal)
CPT/HCPCS: 99199

== ENCOUNTER 2023-02-09 09:13 | Emergency (ER) | payer MEDICARE, MEDICAID, SELFPAY ==
[2023-02-09 09:22] VITALS: BP 140/77; PULSE 95; RESP 18; TEMP 36.9; O2SAT 97
--- NOTE | 2023-02-09 09:53 | ED.GENADULT ---
HPI - General Adult General Chief complaint: Nausea/Vomiting/Diarrhea Stated complaint: Diarrhea x 3 days Time Seen by Provider: 02/09/23 09:35 Source: patient Mode of arrival: ambulatory Limitations: no limitations History of Present Illness HPI narrative: This is a 59-year-old female with PMH of asthma, bronchiectasis, bipolar, IBS, hypothyroid who presents to the ED with chief complaint of diarrhea x3 days. Was diagnosed with COVID 01/31/2023 and started on paxlovid, completed the course yesterday. Reports she is having 2 or 3 episodes of loose stools per morning. She has also had some wheezing and cough, exacerbated by COVID. Denies productive cough. Reports she was seen yesterday at another facility and had a normal chest x-ray. Denies shortness of breath, chest pain, abdominal pain, nausea, vomiting. Denies GI bleeding symptoms. Related Data Home Medications Medication Instructions Recorded Confirmed clonazepam 1 mg tablet (Klonopin) 1 mg PO BID 03/13/19 04/12/21 risperidone 2 mg tablet (Risperdal) 2 mg PO HS 07/23/19 04/12/21 levothyroxine 50 mcg tablet 50 mcg PO DAILY 09/22/20 04/12/21 benztropine 0.5 mg tablet 0.5 mg PO DAILY 11/20/20 04/12/21 citalopram 20 mg tablet (Celexa) 20 mg PO DAILY 11/20/20 04/12/21 quetiapine 50 mg tablet 50 mg PO DAILY 11/20/20 04/12/21 albuterol sulfate 90 mcg/actuation 2 puff inhalation Q4-6H PRN 04/12/21 04/12/21 aerosol inhaler Wheezing quetiapine 300 mg tablet 300 mg PO HS 04/12/21 04/12/21 Allergies Allergy/AdvReac Type Severity Reaction Status Date / Time sulfamethoxazole Allergy Mild ITCHING/KATE Verified 12/18/22 20:24 H codeine Allergy Unknown Itching Verified 12/18/22 20:24 Penicillins Allergy Unknown Itching Verified 12/18/22 20:24 trimethoprim Allergy Unknown Itching Verified 12/18/22 20:24 diphenhydramine AdvReac Unknown Verified 12/18/22 20:24 [From Dwyane] Review of Systems Review of Systems: All systems as dictated in [facility] Past Medical History Medical History Ankle fracture, left Anxiety Asthma Bipolar 1 disorder Chronic obstructive pulmonary disease Depression Endometriosis Hypothyroid Irritable bowel syndrome Kidney stones Osteoporosis Pneumonia Surgical History Surgical History History of bilateral hip replacements History of cholecystectomy History of tubal ligation Family History Family History Sibling Patient's sister is in good health Father Acute myocardial infarction Hypertension Mother Family history of diabetes mellitus in first degree relative Other Family history of blood dyscrasia Social History Social History Social History: Surrogate decision maker: Mega Araya, niece. Code status: Full code. Smoking status: Former smoker Second hand tobacco smoke exposure: Yes Additional smoking assessment comments: Quit at the age of 34. Boyfriend is a heavy smoker. Alcohol intake: never Substance use: never Living arrangements: alone Additional living arrangements comments: The patient lives in her own apartment but stays with her boyfriend several days a week. Additional occupation/education comments: Disabled. Exam Narrative: GENERAL: Well-appearing, well-nourished, and in no acute distress. HEAD: Normocephalic, atraumatic. EYES: PERRLA and EOMI. ENT: Nares clear, no rhinorrhea or epistaxis. Mucous membranes moist. Oropharynx without tonsillar hypertrophy exudate or other lesions. NECK: Supple. No adenopathy or masses. CHEST: No respiratory distress. Sats 97% room air. Mild expiratory wheezes bilaterally. No crackles. HEART: Regular rate and rhythm. No murmur heard. Normal peripheral pulses. ABDOMEN: Soft, nontender, nondistended, normal active bowel sounds. MSK
[2023-02-09 10:14] LABS: Basophils Percent Auto 0.2 % (0.2-1.2); Eosinophils Absolute Auto 0.3 K/mm3 (0-0.3); Eosinophils Percent Auto 3.2 % (0-4.4); Hemoglobin 13.6 g/dL (12.0-15.0); Immature Granulocyte Absolute 0.03 K/mm3 (0.00-0.031); Immature Granulocyte Percent A 0.3 % (0-0.5); Lymphocytes Absolute Auto 3.02 K/mm3 (0.9-3.2); Lymphocytes Percent Auto 34.3 % (18.3-44.2); Mean Corpuscular HGB Conc 32.4 g/dl (32-36); Mean Corpuscular Hemoglobin 34.7 pg (26-34); Mean Corpuscular Volume 107.1 fl (80-100); Mean Platelet Volume 8.5 fl (7.4-10.4); Monocytes Absolute Auto 0.4 K/mm3 (0.1-0.6); Monocytes Percent Auto 4.9 % (2.6-8.5); Neutrophils Percent Auto 57.1 % (45.5-73.1); Platelet Count Result 201 k/mm3 (150-375); Red Blood Count 3.92 M/mm3 (4.2-5.4); Red Cell Distribution Width 12.6 % (11.5-14.5); White Blood Count 8.8 K/mm3 (4.5-10.0)
[2023-02-09 10:24] VITALS: BP 122/70; PULSE 88; RESP 17; O2SAT 94
[2023-02-09 10:25] LABS: Alanine Aminotransferase 75 U/L (6-35); Alkaline Phosphatase 124 U/L (38-126); Anion Gap 8 mmol/L (8-16); Aspartate Amino Transferase 55 U/L (14-36); Bilirubin,Total 0.7 mg/dL (0.2-1.3); Blood Urea Nitrogen 18 mg/dL (7-17); Carbon Dioxide 25 mmol/L (22-30); Chloride 103 mmol/L (98-107); Estimated CRCL calculation 44 ml/min; Estimated Glomerular Filt Rate 45; Glucose 107 mg/dL (65-110); Potassium 4.6 mmol/L (3.4-5.0); Sodium 136 mmol/L (137-145)
[2023-02-09] MEDS: SODIUM CHLORIDE 0.9% IV 1,000 ML 999 ML IV CONT (10:52)
[2023-02-09 10:58] VITALS: PULSE 78; RESP 20
[2023-02-09] MEDS: ALBUTEROL SULFATE NEB 2.5 MG/3 ML INH INHALATION (10:58)
[2023-02-09] MEDS: IPRATROPIUM BR 0.02% INH SOLN 0.5 MG/2.5 ML VIAL 1.5 MG INHALATION (10:58)
[2023-02-09 11:20] VITALS: BP 126/74; PULSE 78; RESP 18; O2SAT 100
[2023-02-09 12:04] VITALS: PULSE 90; RESP 19
[2023-02-09 12:40] LABS: Appearance Urine Turbid (Clear); Bacteria Urine 1+ /hpf; Bilirubin Urine Negative (Negative); Blood Urine 1+ (Negative); Color Urine Yellow (Yellow); Glucose Urine UA Negative (Negative); Hyaline Casts Urine Present /lpf; Ketones Urine Negative (Negative); Leukocyte Esterase Ur 3+ LEU/UL (Negative); Need Manual Microscopic Reviewed; Nitrate Urine Negative (Negative); Protein Urine Negative (Negative); RBC Urine 0-2 /hpf (0-2); Specific Grav Ur 1.005 (1.001-1.035); Squamous Epithelial Cell Urine Many /hpf (Few); Urobilinogen Urine 0.2 mg/dL (<2.0); WBC Urine >100 /hpf; pH Urine 5.5 (5.0-9.0)
[2023-02-09 12:42] LABS: Add Urine Microscopic? YES
== END 2023-02-09 13:12 | disposition home or self-care (01) ==
PROVIDERS: Emergency Provider Physician Assistant; PCP Physician Assistant
DX: K52.1 Toxic gastroenteritis and colitis (principal); T50.905A Adverse effect of unspecified drugs, medicaments and biological substances, initial encounter; J44.9 Chronic obstructive pulmonary disease, unspecified; E03.9 Hypothyroidism, unspecified; M81.0 Age-related osteoporosis without current pathological fracture; F31.9 Bipolar disorder, unspecified; F41.9 Anxiety disorder, unspecified; Z79.51 Long term (current) use of inhaled steroids; Z87.891 Personal history of nicotine dependence; Z79.899 Other long term (current) drug therapy
CPT/HCPCS: 36415; 80053; 81001; 85025; 87077; 87086; 87088; 94640; 96360; 99283; J7030

== ENCOUNTER 2023-06-06 13:17 | Outpatient (CLI) | payer MEDICARE, MEDICAID, SELFPAY ==
[2023-06-06 16:38] LABS: Basophils Percent Auto 0.3 % (0.2-1.2); Eosinophils Absolute Auto 0.4 K/mm3 (0-0.3); Eosinophils Percent Auto 5.7 % (0-4.4); Hematocrit 41.6 % (37.0-47.0); Hemoglobin 13.6 g/dL (12.0-15.0); Immature Granulocyte Absolute 0.01 K/mm3 (0.00-0.031); Immature Granulocyte Percent A 0.1 % (0-0.5); Lymphocytes Percent Auto 49.3 % (18.3-44.2); Mean Corpuscular HGB Conc 32.7 g/dl (32-36); Mean Corpuscular Hemoglobin 34.7 pg (26-34); Mean Corpuscular Volume 106.1 fl (80-100); Mean Platelet Volume 9.6 fl (7.4-10.4); Monocytes Absolute Auto 0.4 K/mm3 (0.1-0.6); Monocytes Percent Auto 4.8 % (2.6-8.5); Neutrophils Absolute Auto 3.1 K/mm3 (1.3-6.7); Neutrophils Percent Auto 39.8 % (45.5-73.1); Platelet Count Result 163 k/mm3 (150-375); Red Blood Count 3.92 M/mm3 (4.2-5.4); Red Cell Distribution Width 12.6 % (11.5-14.5); White Blood Count 7.7 K/mm3 (4.5-10.0)
[2023-06-06 17:05] LABS: Alanine Aminotransferase 20 U/L (6-35); Albumin Level 4.2 g/dL (3.5-5.1); Alkaline Phosphatase 116 U/L (38-126); Anion Gap 4 mmol/L (4-12); Aspartate Amino Transferase 49 U/L (14-36); Bilirubin,Total 0.5 mg/dL (0.2-1.3); Blood Urea Nitrogen 24 mg/dL (7-17); Calcium 10.7 mg/dL (8.4-10.2); Carbon Dioxide 27 mmol/L (22-30); Chloride 109 mmol/L (98-107); Cholesterol 212 mg/dL (0-200); Estimated Glomerular Filt Rate 55; Glucose 95 mg/dL (65-110); HDL Direct 44 mg/dL; Potassium 4.7 mmol/L (3.4-5.0); Sodium 140 mmol/L (137-145); Triglycerides 179 mg/dL (<150)
[2023-06-06 17:16] LABS: LDL Cholesterol Direct 113 mg/dL
[2023-06-06 17:39] LABS: Thyroid Stimulating Hormone 0.454 uIU/mL (0.465-4.680)
[2023-06-06 17:42] LABS: Free T4 Free Thyroxine 1.18 ng/mL (0.78-2.19)
== END 2023-06-06 13:18 | disposition home or self-care (01) ==
PROVIDERS: PCP Physician Assistant; Visit Provider Physician Assistant
DX: E03.9 Hypothyroidism, unspecified (principal); R39.9 Unspecified symptoms and signs involving the genitourinary system; Z13.220 Encounter for screening for lipoid disorders; Z79.899 Other long term (current) drug therapy
CPT/HCPCS: 36415; 80048; 80061; 80076; 84439; 84443; 85025

== ENCOUNTER 2023-06-27 07:09 | Outpatient (RCR) | payer MEDICARE, MEDICAID, SELFPAY ==
[2023-06-28 13:32] LABS: Appearance Urine Cloudy (Clear); Bacteria Urine 1+ /hpf; Bilirubin Urine Negative (Negative); Blood Urine Non-Hemolyzed Trace (Negative); Color Urine Yellow (Yellow); Glucose Urine UA Negative (Negative); Ketones Urine Negative (Negative); Leukocyte Esterase Ur 3+ LEU/UL (Negative); Need Manual Microscopic Reviewed; Nitrate Urine Positive (Negative); Protein Urine Trace mg/dL (Negative); RBC Urine 0-2 /hpf (0-2); Specific Grav Ur 1.013 (1.001-1.035); Squamous Epithelial Cell Urine Moderate /hpf (Few); WBC Urine >100 /hpf (0-3); pH Urine 7.5 (5.0-9.0)
[2023-06-28 13:38] LABS: Add Urine Microscopic? YES
== END 2023-06-27 07:30 | disposition home or self-care (01) ==
LOC: ANHWCLAB 07:09
PROVIDERS: PCP Physician Assistant; Visit Provider Physician Assistant
DX: E03.9 Hypothyroidism, unspecified (principal); R39.9 Unspecified symptoms and signs involving the genitourinary system; Z13.220 Encounter for screening for lipoid disorders; Z79.899 Other long term (current) drug therapy
CPT/HCPCS: 81001; 87077; 87086; 87088; 87181

== ENCOUNTER 2023-07-26 15:18 | Inpatient (IN) | payer MEDICARE, MEDICAID, SELFPAY ==
--- NOTE | ~2023-07-26 | CT_ITS ---
CT OF left hip EXAMINATION: CT hip LT wo con DATE: 07/26/2023 17:55 INDICATION: Hip pain TECHNIQUE: Computed tomography (CT) of the left hip was performed without intravenous contrast. Autom ated exposure control and iterative reconstruction technique were employed. The dose-length product w as 540.44 mGy-cm. COMPARISON: X-ray left hip, same date; CT abdomen pelvis 12/16/2021 FINDINGS: Decreased mineralization. Left hip arthroplasty hardware. One acetabular screw extends beyond the pos terior cortex which is a chronic finding. No hardware fracture or displacement. Nondisplaced left sac ral wing fracture. Nondisplaced fracture of the medial acetabular wall extending into the anterior co lumn. Nondisplaced fracture of the superior pubic ramus at its junction with the pubic bone. Nondispl aced fracture of the inferior pubic ramus. IMPRESSION: Nondisplaced left sacral wing fracture. Nondisplaced anterior column and medial acetabular wall fract ures. Nondisplaced left obturator ring fractures. Reviewed, dictated and finalized at location K. IMPRESSION: Nondisplaced left sacral wing fracture. Nondisplaced anterior column and medial acetabular wall fractures. Nondisplaced left obturator ring fractures.
--- NOTE | ~2023-07-26 | XR_ITS ---
EXAMINATION: XR knee RT 3V DATE: 07/26/2023 16:30 INDICATION: Right knee pain post fall TECHNIQUE: Anteroposterior, oblique and crosstable lateral views of the right knee were obtained COMPARISON: None. FINDINGS: Alignment is normal. No fracture. No joint effusion/layering lipohemarthrosis. Mild soft tissue swel ling anterior to the proximal tibia. IMPRESSION: 1. No right knee joint effusion or osseous abnormality.. Reviewed, dictated and finalized at location A.
--- NOTE | ~2023-07-26 | XR_ITS ---
EXAMINATION: XR hip LT 2V w AP pelvis DATE: 07/26/2023 16:31 INDICATION: Left hip pain post fall TECHNIQUE: Anteroposterior view of the pelvis and anteroposterior and frog-leg lateral views of the l eft hip were obtained. COMPARISON: CT abdomen pelvis dated 12/16/2021 and left hip radiographs dated 10/14/08 FINDINGS: There are bilateral noncemented total hip arthroplasties which are in near-anatomic alignment. No fra cture or abnormal periprosthetic lucency to suggest loosening or infection. Mild bilateral sacroiliac osteoarthritis. A few phleboliths in the pelvis. IMPRESSION: 1. Expected appearance of bilateral total hip arthroplasties with no acute osseous abnormality. Reviewed, dictated and finalized at location A. IMPRESSION: 1. Expected appearance of bilateral total hip arthroplasties with no acute osse ous abnormality.
[2023-07-26 15:22] VITALS: BP 107/59; PULSE 71; RESP 16; TEMP 36.6; O2SAT 96
--- NOTE | 2023-07-26 16:13 | ED.FALL ---
HPI - Fall General Chief Complaint: Fall Stated Complaint: fall Time Seen by Provider: 07/26/23 15:51 History of Present Illness HPI Narrative: 68-year-old female presented emergency department for evaluation after having a ground level fall. Patient states she was walking in her apartment without shoes and slipped in her sock feet. Patient reports that she landed on her left hip and also injured her right knee. Patient states she is unable to move her left leg due to the hip pain. Patient denies striking her head denies any loss of consciousness Related Data Home Medications Medication Instructions Recorded Confirmed clonazepam 1 mg tablet (Klonopin) 1 mg PO BID 03/13/19 07/26/23 levothyroxine 50 mcg tablet 50 mcg PO DAILY 09/22/20 07/26/23 benztropine 0.5 mg tablet 0.5 mg PO DIRECTED 11/20/20 07/26/23 citalopram 20 mg tablet (Celexa) 20 mg PO DAILY 11/20/20 07/26/23 quetiapine 50 mg tablet 50 mg PO QACLUNCH 11/20/20 07/26/23 albuterol sulfate 90 mcg/actuation 2 puff inhalation Q4-6H PRN 04/12/21 07/26/23 aerosol inhaler Wheezing Allergies Allergy/AdvReac Type Severity Reaction Status Date / Time sulfamethoxazole Allergy Mild ITCHING/KATE Verified 12/18/22 20:24 H codeine Allergy Unknown Itching Verified 12/18/22 20:24 Penicillins Allergy Unknown Itching Verified 12/18/22 20:24 trimethoprim Allergy Unknown Itching Verified 12/18/22 20:24 diphenhydramine AdvReac Unknown Verified 12/18/22 20:24 [From Benadryl] Review of Systems Review of Systems: All systems reviewed & are unremarkable except as noted in HPI and below PMFSH Past Medical History Medical History Ankle fracture, left Anxiety Asthma Bipolar 1 disorder Chronic obstructive pulmonary disease Depression Endometriosis Hypothyroid Irritable bowel syndrome Kidney stones Osteoporosis Pneumonia Surgical History Surgical History History of bilateral hip replacements History of cholecystectomy History of tubal ligation Family History Family History Sibling Patient's sister is in good health Father Acute myocardial infarction Hypertension Mother Family history of diabetes mellitus in first degree relative Other Family history of blood dyscrasia Social History Social History Social History: Surrogate decision maker: Mega Araya, niece. Code status: Full code. Smoking status: Former smoker Second hand tobacco smoke exposure: Yes Additional smoking assessment comments: Quit at the age of 34. Boyfriend is a heavy smoker. Alcohol intake: never Substance use: never Living arrangements: alone Additional living arrangements comments: The patient lives in her own apartment but stays with her boyfriend several days a week. Additional occupation/education comments: Disabled. Exam Narrative: APPEARANCE: Well appearing, no pain, no distress, well-nourished. HEAD: normocephalic, atraumatic. EYES: PERRLA/EOMI, conjunctivae clear. NOSE: Normal no drainage EARS:TMS clear with good light reflex. THROAT: Pharynx clear, no exudate. NECK: Supple. No adenopathy, no masses. RESPIRATORY: Airway patent, respirations nonlabored. Clear to auscultation bilaterally, no rales, rhonchi, wheezing. CARDIOVASCULAR: Regular rate and rhythm without murmurs rubs or gallops. ABDOMINAL: Soft, nontender, nondistended, normal bowel sounds MUSCULOSKELETAL: Decreased range of motion of the left hip NEURO: Alert. Cranial nerves II through XII intact. Good gait. Good coordination SKIN: Warm, dry. Normal Color Course Vital Signs Vital signs: Vital Signs Temperature 97.8 F 07/26/23 15:22 Pulse Rate 71 07/26/23 15:22 Respiratory Rate 16 07/26/23 15:22 Blood Pressure 107/59 L 07/26/23 15:22 Pulse Oximetry 96
[2023-07-26] MEDS: HYDROcodone/acetaminophen (*CRX) 5-325 MG TABLET 1 TAB PO (17:10)
[2023-07-26 17:40] VITALS: BP 92/62; PULSE 64; RESP 14; O2SAT 96
[2023-07-26 18:43] VITALS: BP 101/62; PULSE 70; RESP 18; O2SAT 97
--- NOTE | 2023-07-26 21:07 | PM.IMHP ---
H&P: HPI History of Present Illness Date/Time: 07/26/23 21:07 Chief Complaint: Recent fall Narrative: Patient is a 68-year-old female who was brought to the emergency room after a fall. Patient states she was walking at her apartment without shoes and slipped in her socks and fell landed on her left hip and injured the right knee. Patient is unable to move her left like paramedics were called and brought to the emergency room. Deny any history of any slurred speech seizure-like activity urgency frequency of urination no upper or lower extremity weakness no history of any head injuries or blurry vision. Patient has history of hypothyroidism anxiety and chronic bronchitis. Review of Systems Review of Systems: All systems reviewed & are unremarkable except as noted in HPI and below PMFSH Past Medical History Medical History Ankle fracture, left Anxiety Asthma Bipolar 1 disorder Chronic obstructive pulmonary disease Depression Endometriosis Hypothyroid Irritable bowel syndrome Kidney stones Osteoporosis Pneumonia Surgical History Surgical History History of bilateral hip replacements History of cholecystectomy History of tubal ligation Family History Family History Sibling Patient's sister is in good health Father Acute myocardial infarction Hypertension Mother Family history of diabetes mellitus in first degree relative Other Family history of blood dyscrasia Social History Social History Social History: Surrogate decision maker: Mega Araya, niece. Code status: Full code. Smoking status: Former smoker Second hand tobacco smoke exposure: Yes Additional smoking assessment comments: Quit at the age of 34. Boyfriend is a heavy smoker. Alcohol intake: never Substance use: never Living arrangements: alone Additional living arrangements comments: The patient lives in her own apartment but stays with her boyfriend several days a week. Additional occupation/education comments: Disabled. Meds Home Medications and Allergies Home Medications Medication Instructions Recorded Confirmed Type clonazepam 1 mg tablet (Klonopin) 1 mg PO BID 03/13/19 07/26/23 History levothyroxine 50 mcg tablet 50 mcg PO DAILY 09/22/20 07/26/23 History benztropine 0.5 mg tablet 0.5 mg PO DIRECTED 11/20/20 07/26/23 History citalopram 20 mg tablet (Celexa) 20 mg PO DAILY 11/20/20 07/26/23 History quetiapine 50 mg tablet 50 mg PO QACLUNCH 11/20/20 07/26/23 History fluticasone propionate 230 2 puff inhalation Q12HRT 30 days 11/26/20 07/26/23 Rx mcg-salmeterol 21 mcg/actuation #250 mcg HFA inhaler (Advair HFA) albuterol sulfate 90 mcg/actuation 2 puff inhalation Q4-6H PRN 04/12/21 07/26/23 History aerosol inhaler Wheezing acetaminophen 500 mg tablet 1,000 mg PO TID PRN cathleen 7 days #42 12/15/21 07/26/23 Rx tabs nebulizer and compressor #1 ea 10/26/22 Rx Allergies Allergy/AdvReac Type Severity Reaction Status Date / Time sulfamethoxazole Allergy Mild ITCHING/KATE Verified 12/18/22 20:24 H codeine Allergy Unknown Itching Verified 12/18/22 20:24 Penicillins Allergy Unknown Itching Verified 12/18/22 20:24 trimethoprim Allergy Unknown Itching Verified 12/18/22 20:24 diphenhydramine AdvReac Unknown Verified 12/18/22 20:24 [From Dwayne] Vital Signs Vital Signs - 24 hr 07/26/23 15:22 07/26/23 17:40 07/26/23 18:43 Temperature 36.6 C Pulse Rate 71 64 70 Respiratory Rate 16 14 18 Blood Pressure 107/59 L 92/62 L 101/62 Pulse Oximetry 96 96 97 Oxygen Delivery Room Air Exam Narrative: GENERAL: Well appearing, no acute distress. HEAD: Normocephalic, atraumatic. NECK: Supple. No adenopathy, no masses. RESPIRATORY: respirations nonlabored. , no rales, wheezing. CARD
[2023-07-26 22:20] VITALS: BP 124/62; PULSE 72; RESP 18; TEMP 36.9; O2SAT 94
[2023-07-26] MEDS: fentaNYL CITRATE INJ (*CRX) 100 MCG/2 ML VIAL 50 MCG IV PUSH (22:22)
--- NOTE | 2023-07-26 22:26 | ADMGEN ---
This patient, Dakotah Jernigan, was admitted to 2 Medical Room 241-01 @[id number]. Patient/family oriented to hospital policies and general routines including ID bracelet, bed and alarms, visiting hours, pain management, procedures, bathroom and other care routines, personal items, smoking policy, room service/diet, and visiting hours. Information on how to activate the Rapid Response Team has been discussed. Patient/Family are encouraged to report perceived risks to care and to ask questions if they do not understand what they are told or what they should do.
--- NOTE | 2023-07-26 22:53 | PC.NURSE ---
Called Dr. Waller, hospitalist shalonda and hospitalist that admitted this pt. that pt, to notify him that pt did take 1600 doses of clonazepam and benztropine which where scheduled to give @0. Also notified provider that pt reported that she has not been taking her Seroquel because it has been making her act funny and she has not been able to stand up . Pt said okay since he recalled from what he viewed in external med rec.
[2023-07-26 23:15] LABS: Hemoglobin 11.7 g/dL (12.0-15.0); Mean Corpuscular HGB Conc 32.5 g/dl (32-36); Mean Corpuscular Hemoglobin 34.5 pg (26-34); Mean Corpuscular Volume 106.2 fl (80-100); Platelet Count Result 141 k/mm3 (150-375); Red Blood Count 3.39 M/mm3 (4.2-5.4); Red Cell Distribution Width 12.5 % (11.5-14.5); White Blood Count 8.7 K/mm3 (4.5-10.0)
[2023-07-26 23:25] LABS: Alanine Aminotransferase 20 U/L (6-35); Albumin Level 3.5 g/dL (3.5-5.1); Alkaline Phosphatase 90 U/L (38-126); Anion Gap 4 mmol/L (4-12); Aspartate Amino Transferase 24 U/L (14-36); Bilirubin,Total 0.5 mg/dL (0.2-1.3); Blood Urea Nitrogen 19 mg/dL (7-17); Calcium 9.4 mg/dL (8.4-10.2); Carbon Dioxide 27 mmol/L (22-30); Chloride 107 mmol/L (98-107); Estimated CRCL calculation 57 ml/min; Estimated Glomerular Filt Rate > 60; Glucose 117 mg/dL (65-110); Potassium 4.4 mmol/L (3.4-5.0); Sodium 138 mmol/L (137-145)
[2023-07-26 23:29] VITALS: BMI 27.3
[2023-07-26 23:39] LABS: Creatine Kinase 43 U/L (30-135)
--- NOTE | 2023-07-26 23:41 | PC.NURSE ---
Per pt, pt's primary contact is usually POA, however POA is having surgery tomorrow morning 07/27/23. Next in line to contact is pt's niece, Mega Araya. Mega's, contact info placed in chart.
[2023-07-26] MEDS: PANTOPRAZOLE SODIUM IV 40 MG VIAL IV PUSH (23:48)
[2023-07-27] MEDS: fentaNYL CITRATE INJ (*CRX) 100 MCG/2 ML VIAL 50 MCG IV PUSH ×2 (00:26→05:38)
[2023-07-27 04:00] VITALS: BP 104/69; PULSE 59; RESP 17; TEMP 36.8; O2SAT 95
[2023-07-27] MEDS: LEVOTHYROXINE SODIUM 50 MCG TABLET PO (05:23)
[2023-07-27] MEDS: PANTOPRAZOLE SODIUM IV 40 MG VIAL IV PUSH ×2 (06:52→21:06)
--- NOTE | 2023-07-27 07:07 | PM.CNOR ---
Assessment and Plan Assessment and plan (1) Closed pelvic fracture: Qualifiers: Encounter type: initial encounter Pelvic bone location: multiple parts Fracture alignment: with stable disruption of pelvic ring Qualified Code(s): S32.810A - Multiple fractures of pelvis with stable disruption of pelvic ring, initial encounter for closed fracture Code(s): S32.9XXA - Fracture of unspecified parts of lumbosacral spine and pelvis, initial encounter for closed fracture Status: Acute Assessment and Plan: Patient is a 68-year-old female who came into the emergency room after she had fallen and was unable to get up complaining of severe pain in the left groin. She has a history of bilateral hip replacements many years ago. X-rays left hip and pelvis were negative. CT scan showed subtle buckling of the inferior pubic ramus and subtle buckling of the anterior cortex of the left sacral ala. hip replacement is in expected position without periprosthetic complication. The radiologist thought there was extension of fracture to the anterior column adjacent to the superior pubic ramus and this is suggested on the coronal reconstructions but is very subtle. Her past medical history is significant for several blood clots behind her right knee many years ago. She states these occurred without association with her hip replacement surgeries. On examination she has intact sensation left foot no swelling left lower extremity she does have enlargement of the right calf which is chronic for her likely related to her previous DVTs on the right leg. He has intact motor function left foot and palpable dorsalis pedis pulse. I recommended touch weight-bearing for between 4 and 6 weeks. She should have an osteoporosis workup an outpatient basis. She needs DVT prophylaxis because of her history of DVT on the right leg and I will prescribe Eliquis and SCDs. I would recommend Eliquis 2.5 mg q.12 hours. for 6 weeks. I would like to see her in the office in 2 weeks for radiographs to rule out displacement of these nondisplaced fractures. History of Present Illness HPI Consult date: 07/27/23 Chief complaint: Pelvic fracture PMFSH Past Medical History Medical History Ankle fracture, left Anxiety Asthma Bipolar 1 disorder Chronic obstructive pulmonary disease Depression Endometriosis Hypothyroid Irritable bowel syndrome Kidney stones Osteoporosis Pneumonia Surgical History Surgical History History of bilateral hip replacements History of cholecystectomy History of tubal ligation Family History Family History (Updated 07/26/23 @ 23:07 by Judy Dunn RN) Sibling Patient's sister is in good health Father Acute myocardial infarction Hypertension Mother Family history of diabetes mellitus in first degree relative Other Family history of blood dyscrasia Social History Social History Social History: Surrogate decision maker: Mega Marktiago, niece. Code status: Full code. Years smoked: 17 Smoking status: Former smoker Tobacco type: cigarettes Second hand tobacco smoke exposure: Yes Additional smoking assessment comments: Quit at the age of 34. Boyfriend is a heavy smoker. Alcohol intake: former Drinks per week: 1 Substance use: never Do You Feel Safe in your Home?: Yes Lack of Transportation: No Lack of Food: Never True Current Housing: I Have Housing Concerned About Future Housing: No Difficulty Paying Gas/Electric Bills: No Difficulty Paying for Meds: No Currently Unemployed: No Education: High School Diploma/GED Difficulty w/ Childcare or Family Care: No Living arrangements: alone Additional living arrangements comments: The patient lives in her own apartment but stays with her boyfriend several days a w
[2023-07-27 07:57] VITALS: PULSE 64; RESP 18; O2SAT 95
[2023-07-27] MEDS: FLUTICASONE/SALMETEROL 230-21 MCG INHALER 1 PUFF 2 PUFF INHALATION ×2 (07:57→20:08)
[2023-07-27] MEDS: clonazePAM (*CRX) 0.5 MG TABLET 1 MG PO ×2 (08:23→17:39)
[2023-07-27] MEDS: APIXABAN 2.5 MG TABLET PO ×2 (08:23→21:07)
[2023-07-27] MEDS: CITALOPRAM HYDROBROMIDE 20 MG TABLET PO (08:24)
--- NOTE | 2023-07-27 10:50 | PM.IMPN ---
Progress Note: A&P Assessment and Plan (1) Closed pelvic fracture: Qualifiers: Encounter type: initial encounter Fracture alignment: with stable disruption of pelvic ring Pelvic bone location: multiple parts Qualified Code(s): S32.810A - Multiple fractures of pelvis with stable disruption of pelvic ring, initial encounter for closed fracture Code(s): S32.9XXA - Fracture of unspecified parts of lumbosacral spine and pelvis, initial encounter for closed fracture Status: Acute Assessment and Plan: Presented to the emergency room after fall CT of the pelvis did show left sacral wing fracture nondisplaced anterior column and medial acetabular wall fracture, nondisplaced left upper treat her ring fracture Orthopedic consult [place] 5/325 for pain 4-6, [place] 10/650 for 7-10 pain PT OT consulted Referral sent to [facility] Most likely related to polypharmacy Continue pain control Orthopedic recommending 4-6 weeks of toe-touch weight-bearing status. (2) Acute pain of left hip: Code(s): M25.552 - Pain in left hip Status: Acute Assessment and Plan: See above (3) Psychiatric illness: Code(s): F99 - Mental disorder, not otherwise specified Status: Acute Assessment and Plan: Continue Klonopin 1 mg p.o. b.i.d., Celexa 20 mg p.o. daily, benztropine 0.5 mg daily Seroquel 50 Trend mental status Appears stable (4) Anemia: Code(s): D64.9 - Anemia, unspecified Status: Acute Assessment and Plan: Mild anemia noted hemoglobin 11.7 hematocrit 36.0 Most likely related to acute fracture Continue labs Trend labs Transfuse if hemoglobin less than 7 Plan All home meds started Time Spent With Patient Time: 41 minutes Time with patient: Greater than 35 minutes Subjective Date/time seen: 07/27/23 10:15 Interval history: 07/26/23 21:07 Patient is a 68-year-old female who was brought to the emergency room after a fall. Patient states she was walking at her apartment without shoes and slipped in her socks and fell landed on her left hip and injured the right knee. Patient is unable to move her left like paramedics were called and brought to the emergency room. Deny any history of any slurred speech seizure-like activity urgency frequency of urination no upper or lower extremity weakness no history of any head injuries or blurry vision. Patient has history of hypothyroidism anxiety and chronic bronchitis. 07/27/2023 1015 Patient is sitting in chair. Patient states that it is really hurts to stand. She denies any current chest pain, shortness a breath, vomiting, diarrhea, constipation, fevers, sweats, chills. She did state that she was having some nausea. She also stated the pain medicine was helping did reduce her been all to orals at this time. Will look into possible rehab. Review of Systems Review of Systems: All systems reviewed & are unremarkable except as noted in HPI and below Exam Narrative: General: well-nourished, tired-appearing 68-year-old female, sitting up in chair, comfortable, NARD Neuro: awake, alert and oriented x4, speech clear, no focal neuro deficits noted HEENMT: normocephalic, atraumatic, EOMI, sclerae anicteric, moist oral mucosa Respiratory: Clear to auscultation bilaterally without crackles, rhonchi or wheezes, nonlabored breathing Cardio: regular rate, regular rhythm with S1-S2 Abdomen: nondistended, normoactive bowel sounds, soft, nontender to palpation Extremities: no edema, erythema, or tenderness to palpation, DP pulses 2+ bilaterally Skin: no rashes or lesions, warm and dry Psych: appropriate mood and affect, judgment and insight intact Objective Data Vital Signs Vital Signs: Vital Signs - 24 hr 07/26/23 15:22 07/26/23 17:40 07/26/23 18:43 Temperature 97.8 F Pulse Rate 71 64 70 Respiratory Rate 16 14 18 Blood Pressure 107/59 L 92/62 L 101/62 Pu
[2023-07-27] MEDS: KETOROLAC 15 MG/ML VIAL (*BKC) IV PUSH (11:33)
[2023-07-27] MEDS: QUEtiapine FUMARATE 25 MG TABLET 50 MG PO (11:41)
[2023-07-27 13:57] VITALS: BP 100/57; PULSE 76; RESP 20; TEMP 36.6; O2SAT 96
[2023-07-27] MEDS: BENZTROPINE MESYLATE 0.5 MG TABLET PO (17:39)
[2023-07-27] MEDS: HYDROcodone/acetaminophen (*CRX) 5-325 MG TABLET 1 TAB PO (18:16)
[2023-07-27 19:39] VITALS: BP 105/60; PULSE 65; RESP 18; TEMP 36.7; O2SAT 97
[2023-07-27 20:10] VITALS: O2SAT 95
[2023-07-27 21:23] LABS: Hematocrit 33.4 % (37.0-47.0); Hemoglobin 11.1 g/dL (12.0-15.0); Mean Corpuscular HGB Conc 33.2 g/dl (32-36); Mean Corpuscular Hemoglobin 34.7 pg (26-34); Mean Corpuscular Volume 104.4 fl (80-100); Mean Platelet Volume 8.5 fl (7.4-10.4); Platelet Count Result 103 k/mm3 (150-375); Red Cell Distribution Width 12.6 % (11.5-14.5); White Blood Count 6.1 K/mm3 (4.5-10.0)
[2023-07-27 21:33] LABS: Alanine Aminotransferase 32 U/L (6-35); Albumin Level 3.4 g/dL (3.5-5.1); Alkaline Phosphatase 95 U/L (38-126); Anion Gap 3 mmol/L (4-12); Aspartate Amino Transferase 30 U/L (14-36); Bilirubin,Total 0.6 mg/dL (0.2-1.3); Blood Urea Nitrogen 18 mg/dL (7-17); Calcium 9.2 mg/dL (8.4-10.2); Carbon Dioxide 29 mmol/L (22-30); Chloride 104 mmol/L (98-107); Estimated CRCL calculation 42 ml/min; Estimated Glomerular Filt Rate 49; Glucose 119 mg/dL (65-110); Potassium 3.5 mmol/L (3.4-5.0); Sodium 136 mmol/L (137-145)
[2023-07-28 04:51] VITALS: BP 107/48; PULSE 63; RESP 17; TEMP 36.9; O2SAT 94
[2023-07-28] MEDS: LEVOTHYROXINE SODIUM 50 MCG TABLET PO (06:08)
[2023-07-28 07:40] VITALS: PULSE 66; RESP 18; O2SAT 95
[2023-07-28] MEDS: FLUTICASONE/SALMETEROL 230-21 MCG INHALER 1 PUFF 2 PUFF INHALATION ×2 (07:40→17:31)
[2023-07-28] MEDS: clonazePAM (*CRX) 0.5 MG TABLET 1 MG PO ×2 (08:37→16:59)
[2023-07-28] MEDS: APIXABAN 2.5 MG TABLET PO ×2 (08:37→20:40)
[2023-07-28] MEDS: CITALOPRAM HYDROBROMIDE 20 MG TABLET PO (08:37)
[2023-07-28] MEDS: PANTOPRAZOLE SODIUM IV 40 MG VIAL IV PUSH ×2 (08:38→20:41)
[2023-07-28] MEDS: HYDROcodone/acetaminophen (*CRX) 5-325 MG TABLET 2 TAB PO (08:38)
[2023-07-28 09:15] LABS: Alanine Aminotransferase 31 U/L (6-35); Albumin Level 3.7 g/dL (3.5-5.1); Alkaline Phosphatase 95 U/L (38-126); Anion Gap 6 mmol/L (4-12); Aspartate Amino Transferase 32 U/L (14-36); Bilirubin,Total 0.8 mg/dL (0.2-1.3); Blood Urea Nitrogen 18 mg/dL (7-17); Calcium 9.4 mg/dL (8.4-10.2); Carbon Dioxide 22 mmol/L (22-30); Chloride 109 mmol/L (98-107); Estimated CRCL calculation 46 ml/min; Estimated Glomerular Filt Rate 55; Glucose 91 mg/dL (65-110); Potassium 4.5 mmol/L (3.4-5.0); Sodium 137 mmol/L (137-145)
[2023-07-28 09:34] LABS: Basophils Percent Auto 0.3 % (0.2-1.2); Eosinophils Absolute Auto 0.5 K/mm3 (0-0.3); Eosinophils Percent Auto 6.3 % (0-4.4); Hematocrit 36.6 % (37.0-47.0); Hemoglobin 11.9 g/dL (12.0-15.0); Immature Granulocyte Absolute 0.02 K/mm3 (0.00-0.031); Immature Granulocyte Percent A 0.3 % (0-0.5); Lymphocytes Absolute Auto 3.32 K/mm3 (0.9-3.2); Mean Corpuscular HGB Conc 32.5 g/dl (32-36); Mean Corpuscular Hemoglobin 34.9 pg (26-34); Mean Corpuscular Volume 107.3 fl (80-100); Mean Platelet Volume 9.1 fl (7.4-10.4); Monocytes Absolute Auto 0.3 K/mm3 (0.1-0.6); Neutrophils Absolute Auto 3.7 K/mm3 (1.3-6.7); Neutrophils Percent Auto 47.1 % (45.5-73.1); Platelet Count Result 136 k/mm3 (150-375); Red Blood Count 3.41 M/mm3 (4.2-5.4); Red Cell Distribution Width 12.9 % (11.5-14.5); White Blood Count 7.9 K/mm3 (4.5-10.0)
--- NOTE | 2023-07-28 09:35 | PM.IMPN ---
Progress Note: A&P Assessment and Plan (1) Closed pelvic fracture: Qualifiers: Encounter type: initial encounter Fracture alignment: with stable disruption of pelvic ring Pelvic bone location: multiple parts Qualified Code(s): S32.810A - Multiple fractures of pelvis with stable disruption of pelvic ring, initial encounter for closed fracture Code(s): S32.9XXA - Fracture of unspecified parts of lumbosacral spine and pelvis, initial encounter for closed fracture Status: Acute Assessment and Plan: Presented to the emergency room after fall CT of the pelvis did show left sacral wing fracture nondisplaced anterior column and medial acetabular wall fracture, nondisplaced left upper treat her ring fracture Orthopedic consult Milner 5/325 for pain 4-6, Milner 10/650 for 7-10 pain PT OT consulted Referral sent to [facility] Most likely related to polypharmacy Continue pain control Orthopedic recommending 4-6 weeks of toe-touch weight-bearing status. Awaiting disposition at this time (2) Acute pain of left hip: Code(s): M25.552 - Pain in left hip Status: Acute Assessment and Plan: See above (3) Psychiatric illness: Code(s): F99 - Mental disorder, not otherwise specified Status: Acute Assessment and Plan: Continue Klonopin 1 mg p.o. b.i.d., Celexa 20 mg p.o. daily, benztropine 0.5 mg daily Seroquel 50 Trend mental status Appears stable (4) Anemia: Code(s): D64.9 - Anemia, unspecified Status: Acute Assessment and Plan: Mild anemia noted hemoglobin 11.7 hematocrit 36.0 on admission Check labs in the am Most likely related to acute fracture Continue labs Trend labs Transfuse if hemoglobin less than 7 Plan All home meds started Time Spent With Patient Time: 41 minutes Time with patient: Greater than 35 minutes Subjective Date/time seen: 07/28/23 09:00 Interval history: 07/26/23 21:07 Patient is a 68-year-old female who was brought to the emergency room after a fall. Patient states she was walking at her apartment without shoes and slipped in her socks and fell landed on her left hip and injured the right knee. Patient is unable to move her left like paramedics were called and brought to the emergency room. Deny any history of any slurred speech seizure-like activity urgency frequency of urination no upper or lower extremity weakness no history of any head injuries or blurry vision. Patient has history of hypothyroidism anxiety and chronic bronchitis. 07/27/2023 1015 Patient is sitting in chair. Patient states that it is really hurts to stand. She denies any current chest pain, shortness a breath, vomiting, diarrhea, constipation, fevers, sweats, chills. She did state that she was having some nausea. She also stated the pain medicine was helping did reduce her been all to orals at this time. Will look into possible rehab. 07/28/2023 0900 Patient is lying in bed. Patient states that she is still having some pain. She denies any current chest pain, shortness a breath, nausea, vomiting, diarrhea constipation. Patient's niece was in the room as well. Plan of care was reviewed with the niece however due to the circumstances of holiday patient has a known disposition at this time. Currently labs and vital signs are stable. Will await further planning. Review of Systems Review of Systems: All systems reviewed & are unremarkable except as noted in HPI and below Exam Narrative: General: well-nourished, well-appearing 68-year-old female, Laying in bed, comfortable, NARD Neuro: awake, alert and oriented x4, speech clear, no focal neuro deficits noted HEENMT: normocephalic, atraumatic, EOMI, sclerae anicteric, moist oral mucosa Respiratory: Clear to auscultation bilaterally without crackles, rhonchi or wheezes, nonlabored breathing Cardio: regular rate, regular rhythm w
[2023-07-28 09:56] LABS: Macrocytosis 2+ (NORMAL); Platelet Estimate Slightly Decreased (Adequate); Schistocytes None Seen
[2023-07-28] MEDS: ACETAMINOPHEN 500 MG TABLET 1000 MG PO ×3 (11:24→23:00)
[2023-07-28] MEDS: QUEtiapine FUMARATE 25 MG TABLET 50 MG PO (11:28)
[2023-07-28 14:00] VITALS: BP 90/55; PULSE 83; RESP 18; TEMP 36; O2SAT 97
--- NOTE | 2023-07-28 16:24 | PM.PNORT ---
Progress Note: A&P Assessment and Plan (1) Closed pelvic fracture: Qualifiers: Encounter type: initial encounter Fracture alignment: with stable disruption of pelvic ring Pelvic bone location: multiple parts Qualified Code(s): S32.810A - Multiple fractures of pelvis with stable disruption of pelvic ring, initial encounter for closed fracture Code(s): S32.9XXA - Fracture of unspecified parts of lumbosacral spine and pelvis, initial encounter for closed fracture Status: Acute Assessment and Plan: Hospital day number 2. Patient has CT scan showing nondisplaced medial wall anterior column acetabular fractures around a well-fixed right acetabular component and inferior pubic ramus fracture nondisplaced and subtle buckling anterior cortex of the right sacrum. Today she states she has been up to the chair and did much better today. She has significant pain in the right groin. Hospitalist started her on hydrocodone Tylenol combination. She has noticed some mild pain in the left groin as well with full weight-bearing on the left. I cannot rule out occult pubic ramus fractures on the left that we do not see on CT scan. Her symptoms are very mild on the left. She is on Eliquis and I would recommend that she remain on this until she is ambulatory which will be a minimum of 6 weeks. I have printed and signed and oxycodone script for pain control at discharge and will order scheduled Tylenol for her at discharge as well and I have ordered the Eliquis 2.5 mg twice daily. She tells me she is going to be transferred probably tomorrow to [facility]. I have added instructions to the discharge summary with regards to her care and weight-bearing status. Subjective Subjective Date/Time Seen: 07/28/23 16:24 Objective Data Vital Signs Vital Signs: Vital Signs - 24 hr 07/27/23 19:39 07/27/23 20:10 07/27/23 21:00 Temperature 36.7 C Pulse Rate 65 Respiratory Rate 18 Blood Pressure 105/60 Pulse Oximetry 97 95 Oxygen Delivery Room Air Room Air Fraction of Inspired Oxygen 07/28/23 04:51 07/28/23 07:40 07/28/23 07:40 Temperature 36.9 C Pulse Rate 63 66 Respiratory Rate 17 18 Blood Pressure 107/48 L Pulse Oximetry 94 95 Oxygen Delivery Room Air Fraction of Inspired Oxygen 07/28/23 08:30 07/28/23 14:00 Temperature 36.0 C L Pulse Rate 83 Respiratory Rate 18 Blood Pressure 90/55 L Pulse Oximetry 97 Oxygen Delivery Room Air Fraction of Inspired Oxygen Intake/Output Intake/Output: Intake & Output 07/25/23 07/26/23 07/27/23 07/28/23 23:59 23:59 23:59 23:59 Intake Total 1200 600 Output Total 650 1700 Balance 550 -1100 Meds/Results Medications: Active Medications Generic Name Dose Route Start Last Admin Trade Name Freq PRN Reason Stop Dose Admin Acetaminophen 1,000 mg 07/26/23 21:13 07/28/23 11:24 Acetaminophen 500 Mg Tablet PO 1,000 mg TID PRN Administration PAIN 1-3 Hydrocodone Bitart/Acetaminophen 1 tab 07/27/23 10:49 07/27/23 18:16 Hydrocodone/Acetaminophen (*Crx) 5-325 Mg Tablet PO 1 tab Q6H PRN Administration Pain Rated 4-6 Hydrocodone Bitart/Acetaminophen 2 tab 07/27/23 10:49 07/28/23 08:38 Hydrocodone/Acetaminophen (*Crx) 5-325 Mg Tablet PO 2 tab Q6H PRN Administration Pain Rated 7-10 Albuterol 2 puff 07/26/23 21:13 Albuterol Sulfate (*Sp) Aerosol 1 Puff INHALATION Q4-6H PRN Wheezing Apixaban 2.5 mg 07/27/23 09:00 07/28/23 08:37 Apixaban 2.5 Mg Tablet PO 2.5 mg Q12HR NAVDEEP Administration Benztropine Mesylate 0.5 mg 07/26/23 21:30 07/27/23 17:39 Benztropine Mesylate 0.5 Mg Tablet PO 0.5 mg DAILY@1600 NAVDEEP Administration Citalopram Hydrobromide 20 mg 07/27/23 09:00 07/28/23 08:37 Citalopram Hydrobromide 20 Mg Tablet PO 20 mg DAILY NAVDEEP Administration Clonazepam 1 mg 07/26/23 21:30 07/28/23 08:37 Clonazepam (*Crx) 0.5 Mg Tablet
[2023-07-28] MEDS: polyethylene glycoL 3350 17 GM POWD.PACK PO (16:59)
[2023-07-28] MEDS: BENZTROPINE MESYLATE 0.5 MG TABLET PO (16:59)
[2023-07-28 19:46] VITALS: BP 103/68; PULSE 66; RESP 17; TEMP 36.6; O2SAT 99
[2023-07-29 04:41] VITALS: BP 105/56; PULSE 66; RESP 17; TEMP 36.8; O2SAT 98
[2023-07-29] MEDS: ACETAMINOPHEN 500 MG TABLET 1000 MG PO ×4 (06:10→23:48)
[2023-07-29] MEDS: LEVOTHYROXINE SODIUM 50 MCG TABLET PO (06:10)
[2023-07-29 09:02] VITALS: O2SAT 96
[2023-07-29] MEDS: FLUTICASONE/SALMETEROL 230-21 MCG INHALER 1 PUFF 2 PUFF INHALATION ×2 (09:02→20:09)
[2023-07-29] MEDS: polyethylene glycoL 3350 17 GM POWD.PACK PO (09:08)
[2023-07-29] MEDS: PANTOPRAZOLE SODIUM IV 40 MG VIAL IV PUSH (09:08)
[2023-07-29] MEDS: clonazePAM (*CRX) 0.5 MG TABLET 1 MG PO ×2 (09:08→17:25)
[2023-07-29] MEDS: APIXABAN 2.5 MG TABLET PO ×2 (09:08→21:30)
[2023-07-29] MEDS: CITALOPRAM HYDROBROMIDE 20 MG TABLET PO (09:08)
--- NOTE | 2023-07-29 10:45 | PM.IMPN ---
Progress Note: A&P Assessment and Plan (1) Closed pelvic fracture: Qualifiers: Encounter type: initial encounter Fracture alignment: with stable disruption of pelvic ring Pelvic bone location: multiple parts Qualified Code(s): S32.810A - Multiple fractures of pelvis with stable disruption of pelvic ring, initial encounter for closed fracture Code(s): S32.9XXA - Fracture of unspecified parts of lumbosacral spine and pelvis, initial encounter for closed fracture Status: Acute Assessment and Plan: Presented to the emergency room after fall CT of the pelvis did show left sacral wing fracture nondisplaced anterior column and medial acetabular wall fracture, nondisplaced left upper treat her ring fracture Orthopedic consult Hargill 5/325 for pain 4-6, Hargill 10/650 for 7-10 pain PT OT consulted Referral sent to [facility] Most likely related to polypharmacy Continue pain control Orthopedic recommending 4-6 weeks of toe-touch weight-bearing status She will need to follow up with ortho in 4 weeks for other xrays (2) Acute pain of left hip: Code(s): M25.552 - Pain in left hip Status: Acute Assessment and Plan: See above (3) Psychiatric illness: Code(s): F99 - Mental disorder, not otherwise specified Status: Acute Assessment and Plan: Continue Klonopin 1 mg p.o. b.i.d., Celexa 20 mg p.o. daily, benztropine 0.5 mg daily Seroquel 50 Trend mental status Appears stable (4) Anemia: Code(s): D64.9 - Anemia, unspecified Status: Acute Assessment and Plan: Mild anemia noted hemoglobin 11.9 hematocrit 36.6 as of 07/28/2023 Most likely related to acute fracture Continue labs Trend labs Transfuse if hemoglobin less than 7 Plan RN reports no IV access. Ok to leave out for now. Time Spent With Patient Time: 41 minutes Time with patient: Greater than 35 minutes Subjective Date/time seen: 07/29/23 10:45 Interval history: 07/26/23 21:07 Patient is a 68-year-old female who was brought to the emergency room after a fall. Patient states she was walking at her apartment without shoes and slipped in her socks and fell landed on her left hip and injured the right knee. Patient is unable to move her left like paramedics were called and brought to the emergency room. Deny any history of any slurred speech seizure-like activity urgency frequency of urination no upper or lower extremity weakness no history of any head injuries or blurry vision. Patient has history of hypothyroidism anxiety and chronic bronchitis. 07/27/2023 1015 Patient is sitting in chair. Patient states that it is really hurts to stand. She denies any current chest pain, shortness a breath, vomiting, diarrhea, constipation, fevers, sweats, chills. She did state that she was having some nausea. She also stated the pain medicine was helping did reduce her been all to orals at this time. Will look into possible rehab. 07/28/2023 0900 Patient is lying in bed. Patient states that she is still having some pain. She denies any current chest pain, shortness a breath, nausea, vomiting, diarrhea constipation. Patient's niece was in the room as well. Plan of care was reviewed with the niece however due to the circumstances of holiday patient has a known disposition at this time. Currently labs and vital signs are stable. Will await further planning. 07/29/2023 0900 Patient is laying in bed. She denies any chest pain, shortness of breath, nausea, vomiting, diarrhea, constipation. She did endorse having a new cough, and some chills. She denies any other complaints. Currently she is just waiting for her last midnight to go to [place] in tomorrow. Review of Systems Review of Systems: All systems reviewed & are unremarkable except as noted in HPI and below Exam Narrative: General: well-nourished, well-appearing 68-year-old f
[2023-07-29] MEDS: QUEtiapine FUMARATE 25 MG TABLET 50 MG PO (12:20)
[2023-07-29 14:28] VITALS: BP 97/58; PULSE 86; RESP 18; TEMP 36.4; O2SAT 97
[2023-07-29] MEDS: BENZTROPINE MESYLATE 0.5 MG TABLET PO (17:25)
[2023-07-29 19:29] VITALS: BP 117/59; PULSE 62; RESP 17; TEMP 36.4; O2SAT 98
[2023-07-29 20:12] VITALS: PULSE 61; RESP 18
[2023-07-29 21:30] VITALS: PULSE 61; RESP 18
[2023-07-29] MEDS: PANTOPRAZOLE 40 MG TABLET PO (22:14)
[2023-07-30 05:06] VITALS: BP 108/60; PULSE 71; RESP 17; TEMP 36.7; O2SAT 96
[2023-07-30] MEDS: ACETAMINOPHEN 500 MG TABLET 1000 MG PO ×3 (05:38→17:00)
[2023-07-30] MEDS: LEVOTHYROXINE SODIUM 50 MCG TABLET PO (05:38)
[2023-07-30] MEDS: PANTOPRAZOLE 40 MG TABLET PO (08:38)
[2023-07-30] MEDS: CITALOPRAM HYDROBROMIDE 20 MG TABLET PO (08:38)
[2023-07-30] MEDS: APIXABAN 2.5 MG TABLET PO (08:38)
[2023-07-30] MEDS: clonazePAM (*CRX) 0.5 MG TABLET 1 MG PO ×2 (08:38→17:00)
[2023-07-30] MEDS: polyethylene glycoL 3350 17 GM POWD.PACK PO (08:38)
[2023-07-30] MEDS: FLUTICASONE/SALMETEROL 230-21 MCG INHALER 1 PUFF 2 PUFF INHALATION (09:28)
[2023-07-30 09:30] VITALS: PULSE 64; RESP 18
--- NOTE | 2023-07-30 11:29 | PM.DS ---
DS: Admitting Diagnosis Discharge Date Pelvic fracture Admitting Diagnosis Pelvic fracture DS: Discharge Diagnosis Discharge Diagnosis (1) Closed pelvic fracture: Qualifiers: Encounter type: initial encounter Fracture alignment: with stable disruption of pelvic ring Pelvic bone location: multiple parts Qualified Code(s): S32.810A - Multiple fractures of pelvis with stable disruption of pelvic ring, initial encounter for closed fracture Code(s): S32.9XXA - Fracture of unspecified parts of lumbosacral spine and pelvis, initial encounter for closed fracture Status: Acute (2) Acute pain of left hip: Code(s): M25.552 - Pain in left hip Status: Acute (3) Psychiatric illness: Code(s): F99 - Mental disorder, not otherwise specified Status: Acute (4) Anemia: Code(s): D64.9 - Anemia, unspecified Status: Acute DS: Summary Hospital Course Hospital Course: Patient is a 68-year-old female who presented emergency room for fall and hip pain with a CT of the pelvis revealing non disclosed anterior column and medial acetabular wall fracture. Patient was admitted to the hospitalist service and saw orthopedics. She did not require any surgery and she was started on pain medications and her pain is better controlled. She does have chronic anemia which remained stable. This seems to be a mechanical fall as she said her right ankle twisted a bit and she fell down. No infection suspected. Patient is alert and oriented x4 and ready for discharge. I spoke with her niece and called her other niece and left a voicemail. Plan is to discharge to [facility]. Her home clonazepam order was reprinted due to policy and orthopedics have prescribed her narcotic pain medication. She is to follow up with the facility provider and her primary care provider on discharge. We discussed the worrisome signs and symptoms to come back to emergency room for and she agreed. Plan to do Eliquis for DVT prophylaxis x6 weeks. Status at Discharge Overall status at discharge: patient is progressing back to baseline Time Spent with Patient Time attestation: Total time spent providing and/or coordinating discharge services: 35 minutes Time spent: Greater than 30 minutes Exam Narrative: General: Well developed well nourished patient in NAD HEENT: normocephalic Neck: supple Neuro: Alert and oriented x4 CV:RRR Resp:CTA Abd: Soft, non distended. No pain to palpation. Positive bowel sounds Extremities: No swelling, erythema, or pain to palpation to the lower extremities. She has Band-Aids on some of her right toes which she says helps her pain due to her anatomy. Discharge Plan Discharge Attending physician on discharge: Ara Don Consulting providers: Martinez Evans Discharging Clinician: Stephany Arteaga Patient Disposition: SNF Activity: other - see discharge instructions Diet: regular Discharge Instructions: Patient should be bed to chair only for the 1st 2 weeks toe-touch weight-bearing on the right. She may have occult pubic ramus fractures on the left as well but CT scan did not show these. If Patient's pain not controlled with the 5 mg oxycodone every 4 hours as needed, she may receive 10 mg (2x 5 mg tablets) every 4 hours as needed for pain 7-10. Eliquis 2.5 mg every 12 hours for minimum of 6 weeks. Notify physician if she develops significant swelling in either leg. She has a history of multiple DVTs in the past Follow-up with Dr. Evans in approximately 2 weeks at his office. [phone]. After 2 weeks, Tylenol can be reduced to 1000 mg po Q 8 hours p.r.n. -Please monitor bowel movements and use PRN medications as needed Stand Alone Forms: General Discharge Information Discharge Medications: New oxycodone 5 mg Tablet 5 mg PO Q4H PRN (Reason: Pain Rated 4-6) Qty: 40 0RF acetaminophen 500 mg Tablet 1,000 mg PO Q6H Qty: 10
[2023-07-30] MEDS: QUEtiapine FUMARATE 25 MG TABLET 50 MG PO (13:38)
[2023-07-30 14:00] VITALS: BP 109/57; PULSE 80; RESP 16; TEMP 36.4; O2SAT 100
[2023-07-30 14:29] LABS: SARS-CoV-2 RNA PCR Negative (Negative)
[2023-07-30] MEDS: BENZTROPINE MESYLATE 0.5 MG TABLET PO (15:38)
[2023-07-30] MEDS: BISACODYL 5 MG TABLET EC PO (15:38)
== END 2023-07-30 17:15 | DRG 552 ==
LOC: ANHED 18:44 → ANH2MED 20:21
PROVIDERS: Internal Medicine; Nurse Practitioner; Admitting Provider General Practice; Emergency Provider Emergency Medicine; PCP Physician Assistant; Visit Provider Physician Assistant
DX: S32.19XA Other fracture of sacrum, initial encounter for closed fracture (principal); S32.810A Multiple fractures of pelvis with stable disruption of pelvic ring, initial encounter for closed fracture; J45.909 Unspecified asthma, uncomplicated; J44.9 Chronic obstructive pulmonary disease, unspecified; E83.42 Hypomagnesemia; E03.9 Hypothyroidism, unspecified; K58.9 Irritable bowel syndrome, unspecified; M81.0 Age-related osteoporosis without current pathological fracture; W01.0XXA Fall on same level from slipping, tripping and stumbling without subsequent striking against object, initial encounter; F99 Mental disorder, not otherwise specified; F31.9 Bipolar disorder, unspecified; F41.9 Anxiety disorder, unspecified; Z96.643 Presence of artificial hip joint, bilateral; Z87.442 Personal history of urinary calculi; Z11.52 Encounter for screening for COVID-19
CPT/HCPCS: 36415; 73502; 73562; 73700; 80053; 82550; 85025; 85027; 87086; 87635; 94640; 96375; 96376; 97110; 97161; 97165; 97530; 99285; A9270; C9113; G0378; J1885; J3010

== ENCOUNTER 2023-10-28 14:30 | Outpatient (CLI) | payer MEDICARE, MEDICAID, SELFPAY ==
--- NOTE | ~2023-10-28 | MM_ITS ---
EXAMINATION: MM screening ezequiel BI w cristiane HISTORY: Screening mammogram TECHNIQUE: Craniocaudal and mediolateral oblique 3-D tomosynthesis images were obtained and synthetic 2-D images were generated. CAD analysis was submitted and interpreted. COMPARISON: 07/29/2022, 04/27/2021, 04/14/2020, 02/13/2019 BREAST PARENCHYMAL COMPOSITION:Dense: The breasts are extremely dense, which lowers the sensitivity o f mammography. FINDINGS: Numerous circumscribed, low-density bilateral breast masses are again present, most compati ble with numerous cysts and/or fibroadenomas. No suspicious mass, calcification, or architectural dis tortion are identified in either breast to suggest malignancy. There has been no suspicious interval change. IMPRESSION: No mammographic evidence of malignancy. Multiple bilateral breast masses have benign appearance over all, most compatible with multiple cysts and/or fibroadenomas. Recommend routine screening mammography in one year. BI-RADS Category 2: Benign finding(s). Reviewed, dictated and finalized at location . IMPRESSION: No mammographic evidence of malignancy. Multiple bilateral breast masses have benign appearance overall, most compatible with multiple cysts and/or fibroaden omas. Recommend routine screening mammography in one year. BI-RADS Category 2: Benign finding(s).
== END 2023-10-28 14:31 | disposition home or self-care (01) ==
LOC: ANHIMG 14:32
PROVIDERS: PCP Physician Assistant; Visit Provider Physician Assistant
DX: Z12.31 Encounter for screening mammogram for malignant neoplasm of breast (principal)
CPT/HCPCS: 77063; 77067

== ENCOUNTER 2024-04-16 13:13 | Outpatient (CLI) | payer MEDICARE, MEDICAID, SELFPAY ==
[2024-04-16 13:54] LABS: Basophils Percent Auto 0.3 % (0.2-1.2); Eosinophils Absolute Auto 0.4 K/mm3 (0-0.3); Eosinophils Percent Auto 5.4 % (0-4.4); Hematocrit 39.2 % (37.0-47.0); Hemoglobin 12.4 g/dL (12.0-15.0); Immature Granulocyte Absolute 0.02 K/mm3 (0.00-0.031); Immature Granulocyte Percent A 0.3 % (0-0.5); Lymphocytes Absolute Auto 3.98 K/mm3 (0.9-3.2); Lymphocytes Percent Auto 50.4 % (18.3-44.2); Mean Corpuscular HGB Conc 31.6 g/dl (32-36); Mean Corpuscular Hemoglobin 34.9 pg (26-34); Mean Corpuscular Volume 110.4 fl (80-100); Mean Platelet Volume 8.4 fl (7.4-10.4); Monocytes Absolute Auto 0.4 K/mm3 (0.1-0.6); Monocytes Percent Auto 4.6 % (2.6-8.5); Neutrophils Absolute Auto 3.1 K/mm3 (1.3-6.7); Platelet Count Result 171 k/mm3 (150-375); Red Blood Count 3.55 M/mm3 (4.2-5.4); Red Cell Distribution Width 13.1 % (11.5-14.5); White Blood Count 7.9 K/mm3 (4.5-10.0)
[2024-04-16 14:08] LABS: Add Urine Microscopic? YES; Appearance Urine Cloudy (Clear); Bacteria Urine Rare /hpf; Bilirubin Urine Negative (Negative); Blood Urine 1+ (Negative); Color Urine Yellow (Yellow); Glucose Urine UA Negative (Negative); Ketones Urine Negative (Negative); Leukocyte Esterase Ur 3+ LEU/UL (Negative); Nitrate Urine Positive (Negative); Non Pathogenic Casts 0-2; Protein Urine Negative (Negative); Specific Grav Ur 1.011 (1.001-1.035); Squamous Epithelial Cell Urine Few /hpf (Few); Urobilinogen Urine 0.2 mg/dL (<2.0); WBC Urine >100 /hpf (0-3); pH Urine 5.5 (5.0-9.0)
[2024-04-16 14:09] LABS: Alanine Aminotransferase 23 U/L (6-35); Albumin Level 4.1 g/dL (3.5-5.1); Alkaline Phosphatase 115 U/L (38-126); Anion Gap 6 mmol/L (4-12); Aspartate Amino Transferase 24 U/L (14-36); Bilirubin,Total 0.3 mg/dL (0.2-1.3); Blood Urea Nitrogen 18 mg/dL (7-17); Carbon Dioxide 28 mmol/L (22-30); Chloride 106 mmol/L (98-107); Cholesterol 217 mg/dL (0-200); Estimated Glomerular Filt Rate 59; Glucose 99 mg/dL (65-110); HDL Direct 65 mg/dL; Potassium 4.7 mmol/L (3.4-5.0); Sodium 140 mmol/L (137-145); Triglycerides 135 mg/dL (<150)
[2024-04-16 14:20] LABS: LDL Cholesterol Direct 110 mg/dL
[2024-04-16 14:40] LABS: Thyroid Stimulating Hormone 0.631 uIU/mL (0.465-4.680)
[2024-04-16 14:43] LABS: Hypochromasia 1+; Macrocytosis 1+ (NORMAL); Platelet Estimate Adequate (Adequate); Schistocytes None Seen
--- OUTSIDE RECORDS SUMMARY | 2024-04-16 15:14 | XMS_ITS | Clinical Summary ---
Author Organization [facility] [place] Address [address] [place] [address] Care Team Providers Care Residential Solar Sales Consultant Name Role Phone Elena Payton Primary Care Provider [phone] Allergies Active Allergy Reactions Criticality Noted Date Comments Codeine Itching Low 01/18/2017 Penicillins Shortness of Breath/Wheezing High 01/18/2017 Sulfa (Sulfonamide Antibiotics) Nausea and Vomiting Low 01/18/2017 Sulfamethoxazole-Trimethopri m Nausea and Vomiting Low 01/18/2017 Medications ADVAIR HFA 115-21 mcg/actuation HFA Aerosol Inhaler INL 1 PUFF PO Q 12 H 11 11/19/2016 Active levothyroxine 50 mcg tablet TK 1 T PO QD 11 12/23/2016 Active citalopram (CeleXA) 20 mg tablet TK 1 T PO QAM 3 01/15/2017 Active clonazePAM (KlonoPIN) 1 mg tablet TK 1 T PO QAM AND 1 T AT 4PM 3 01/15/2017 Active progesterone micronized (PROMETRIUM) 100 mg Capsule TK 1 C PO QD 3 10/29/2016 Active QUEtiapine (SEROquel) 400 mg tablet TK 1 T PO QHS 2 01/15/2017 Active QUEtiapine (SEROquel) 50 mg tablet TK 1.5 T PO AT NOON 3 01/15/2017 Active risperiDONE (RisperDAL) 2 mg tablet TK 1 T PO QPM 3 01/15/2017 Active XARELTO 20 mg Tablet TK 1 T PO QD 4 01/13/2017 Active benztropine (COGENTIN) 0.5 mg tablet TK 1 T PO QAM 3 01/15/2017 Active Active Problems Problem Noted Date Diagnosed Date Secondary hypercoagulable state 01/18/2017 Family History Medical History Relation Name Comments Cancer Father Healthy Mother Relation Name Status Comments Father Mother Alive Sister Alive Social History Tobacco Use Types Packs/Day Years Used Date Smoking Tobacco: Former Cigarettes Smokeless Tobacco: Never Comments:from age [age] Alcohol Use Standard Drinks/Week Comments No 0 (1 standard drink = 0.6 oz pur e alcohol) Comments No Sex and Gender Information Value Date Recorded Sex Assigned at Not on file Legal Sex Female 11:43 AM NAPHTHOL SOAPING MACHINE OPERATOR Gender Identity Not on file Sexual Orientation Not on file Last Filed Vital Signs Vital Sign Reading Time Taken Comments Blood Pressure 106/62 01/18/2017 3:02 PM NAPHTHOL SOAPING MACHINE OPERATOR Pulse 75 01/18/2017 3:02 PM NAPHTHOL SOAPING MACHINE OPERATOR Temperature - - Respiratory Rate - - Oxygen Saturation 97% 01/18/2017 3:02 PM NAPHTHOL SOAPING MACHINE OPERATOR Inhaled Oxygen Concentration - - Weight 69.4 kg (153 lb) 01/18/2017 3:02 PM NAPHTHOL SOAPING MACHINE OPERATOR Height 171.5 cm (5' 7.5 ) 01/18/2017 3:02 PM NAPHTHOL SOAPING MACHINE OPERATOR Body Mass Index 23.61 01/18/2017 3:02 PM NAPHTHOL SOAPING MACHINE OPERATOR Plan of Treatment Health Maintenance Due Date Last Done Comments DTAP/TDAP/TD VACCINES (1 - Tdap) 1973 BREAST CANCER SCREENING 1994 COLORECTAL SCREENING 05/15/1999 Colorectal Cancer Screening 05/15/1999 FIT-DNA Q 3 years 05/15/1999 FIT/FOBT Q 1 year 05/15/1999 Flex Sig/CT Colonography Q 5 years 05/15/1999 PNEUMOCOCCAL VACCINE 50+ YEARS (1 of 1 - PCV) 05/15/19 05 ZOSTER VACCINE (1 of 2) 2004 OSTEOPOROSIS SCREENING 05/15/2019 INFLUENZA VACCINE (#1) 2023 RSV VACCINE (60+ or ) (1 - 1-dose 75+ series) 2029 Insurance MEDICARE PART A AND B Care Teams Residential Solar Sales Consultant Relationship Specialty Start Date End Date Elena Payton PA PCP - General Physician Cosmetic Maker 01/18/17
--- OUTSIDE RECORDS SUMMARY | 2024-04-16 15:14 | XMS_ITS | Referral Summary ---
Author Organization [facility] [address] Address [address] [place] [address] Care Team Providers Care Counter Tacker Name Role Phone Elena Payton Primary Care Pr ovider Encounters Date Type Department Care Team Description 03/23/2024 3:25 PM COMPUTER ARCHITECT Ancillary Procedure [facility] Imaging at [address] [address] Acute cough 03/23/2024 3:00 PM COMPUTER ARCHITECT Office Visit [facility] Convenient Care at [address] [address] Lucrecia Jorgensen NP Lower respiratory infection (e.g., bronchitis, pneumonia, pneumonitis, pulmonitis) (Primary Dx) from Last 3 Months Allergies Active Allergy Reactions Criticality Noted Date Comments Codeine Itching,Unknown Low 12/28/2016 Penicillins Fever,Shortness of breath,Unknown High 12/28/2016 Sulfa (Sulfonamide Antibiotics) Itching,Nausea And Vomiting,Unknown Medium 12/28/2016 Sulfamethoxazole-Trimethopri m Itching,Nausea And Vomiting,Unknown Low 12/28/2016 Unclassified Drug Unknown 12/28/2016 Medications inhalat.spacing dev,large mask (OptiChamber Ivette Lg Mask) spacer OptiChamber Ivette [facility] with Large Mask Active albuterol 2.5 mg /3 mL (0.083 %) nebulizer solution albuterol sulfate 2.5 mg/3 mL (0.083 %) solution for nebulization USE 3 ML VIA NEBULIZER FOUR TIMES DAILY NEEDED Active cetirizine (ZyrTEC) 10 mg tablet TAKE 1 TABLET BY MOUTH EVERY DAY NEEDED FOR ALLERGY SYMPTOMS 2 Active citalopram (CeleXA) 20 mg tablet citalopram 20 mg tablet TAKE 1 TABLET BY MOUTH EVERY DAY 7 Active benztropine (COGENTIN) 0.5 mg tablet Take 1 tablet (0.5 mg total) by mouth nightly at bedtime 3 Active clonazePAM (KlonoPIN) 1 mg tablet Take 1 tablet (1 mg total) by mouth 2 (two) times a day 3 Active fluticasone propion-salmete roL (ADVAIR HFA) 115-21 mcg/actuation inhaler INL 1 PUFF PO Q 12 H 7 Active levothyroxine (SYNTHROID) 50 mcg tablet Take 1 tablet (50 mcg total) by mouth daily 3 Active progesterone (PROMETRIUM) 100 mg capsule Take by mouth daily 7 Active QUEtiapine (SEROquel) 200 mg tablet Take 1 tablet (200 mg total) by mouth nightly at bedtime 3 Active QUEtiapine (SEROquel) 50 mg tablet Take 1 tablet (50 mg total) by mouth daily 3 Active risperiDONE (RisperDAL) 2 mg tablet Take 1 tablet (2 mg total) by mouth daily 3 Active azithromycin (ZITHROMAX) 250 mg tabletIndicatio ns:Lower respiratory infection (e.g., bronchitis, pneumonia, pneumonitis, pulmonitis) Take 2 tablets the first day, then 1 tablet daily for 4 days. 6 tablet 5 Active predniSONE (DELTASONE) 20 mg tabletIndicatio ns:Lower respiratory infection (e.g., bronchitis, pneumonia, pneumonitis, pulmonitis) Take 2 tablets (40 mg) by mouth daily for 5 days 10 tablet 5 025 Active Problems Problem Noted Date Diagnosed Date Secondary hypercoagulable state 01/18/2017 Deep vein thrombosis (DVT) of lower extremity Hematuria 01/11/2017 Anemia, unspecified 05/05/2015 Anxiety disorder, unspecified 05/05/2015 Bipolar disorder, unspecified 11/17/2011 Hypothyroidism, unspecified 11/17/2011 Unspecified asthma, uncomplicated 11/17/2011 Social History Tobacco Use Types Packs/Day Years Used Date Smoking Tobacco: Former Cigarettes Tobacco Cessation:Counseling Given: Not Answered Comments Unknown Sex and Gender Information Value Date Recorded Sex Assigned at Not on file Legal Sex Female 6:39 AM COMPUTER ARCHITECT Gender Identity Not on file Sexual Orientation Not on file Last Filed Vital Signs Vital Sign Reading Time Taken Comments Blood Pressure 104/71 03/23/2024 3:02 PM COMPUTER ARCHITECT Pulse 85 03/23/2024 3:02 PM COMPUTER ARCHITECT Temperature 36.8 C (98.3 F) 03/23/2024 3:02 PM COMPUTER ARCHITECT Respiratory Rate 20 03/23/2024 3:02 PM COMPUTER ARCHITECT Oxygen Saturation 95% 03/23/2024 3:02 PM COMPUTER ARCHITECT Inhaled Oxygen Concentration - - Weight 85.7 kg (189 lb) 03/23/2024 3:02 PM COMPUTER ARCHITECT Height 170.2 cm (5' 7.01 ) 02/04/2023 9:27 AM CS T Body Mass Index 29.59 02/04/2023 9:27 AM COMPUTER ARCHITECT Plan of Treatment Not on file Procedures Procedure Name Priority Date/Time Associated Diagnosis Comments POC INFLUENZA A/B, COVID-19 ANTIGEN Routine 03/23/2024 3:36 PM COMPUTER ARCHITECT Lower respiratory infection (e.g., bronchitis, pneumonia, pneumonitis, pulmonitis) XR CHEST PA LATERAL 2 VIEWS Routine 03/23/2024 3:26 PM COMPUTER ARCHITECT Acute cough SCREENING MAMMOGRAM BILATERAL W YOSEF Routine 06/22/2016 9:57 AM CDT from Last 3 Months or Most Recently Relevant to Health Maintenance Results * POC Influenza A/B, COVID-19 antigen (03/23/2024 3:36 PM COMPUTER ARCHITECT) Influenza A Ag, POC Negative Negative [facility] Influenza B Ag, POC Negative Negative [facility] COVID-19 Ag POC Presumptive Negative Presumptive Negative, Invalid [facility] Nasal 03/23/2024 3:36 PM COMPUTER ARCHITECT us Lucrecia Jorgensen NP POINT OF CARE TEST ORDERABLES Final Result [facility] [id number] * XR Chest PA Lateral 2 Views (03/23/2024 3:26 PM COMPUTER ARCHITECT) Anatomical Region Laterality Modality Body, Chest N/A Digital Radiogra phy 03/23/2024 3:44 PM COMPUTER ARCHITECT Narrative 03/23/2024 3:51 PM COMPUTER ARCHITECT EXAM DESCRIPTION: XR CHEST PA LATERAL 2 VIEWS REASON FOR STUDY: Cough with congestion for about 4 days. TECHNIQUE: PA and lateral radiographic views of the chest COMPARISON: Chest radiograph from 02/08/2023 FINDINGS: LUNGS/PLEURAE: Minimal presumed atelectasis projecting over the lower lobes is grossly similar when compared to the prior study. No pleural effusion. There is no pneumothorax. HEART/MEDIASTINUM: Heart size is normal. Normal mediastinal and hilar contours. HARDWARE/LINES/TUBES: None. BONES: No acute findings. IMPRESSION: Minimal presumed atelectasis projecting over the lower lobes is grossly similar when compared to the prior study. THIS IS AN ELECTRONICALLY VERIFIED FINAL REPORT 03/23/2024 3:51 PM - Electronically signed by Abdifatah Josue M.D. LB T: Report ID: [id number] Reading Location: [place] [address] Procedure Note Abdifatah Josue MD - 03/23/2024 EXAM DESCRIPTION: XR CHEST PA LATERAL 2 VIEWS REASON FOR STUDY: Cough with congestion for about 4 days. TECHNIQUE: PA and lateral radiographic views of the chest COMPARISON: Chest radiograph from 02/08/2023 FINDINGS: LUNGS/PLEURAE: Minimal presumed atelectasis projecting overthe lower lobes is grossly similar when compared to the prior study. Nopleural effusion. There is no pneumothorax. HEART/MEDIASTINUM: Heart size is normal. Normal mediastinal and hilar contours. HARDWARE/LINES/TUBES: None. BONES: No acute findings. IMPRESSION: Minimal presumed atelectasis projecting over the lower lobes is grossly similar when compared to the prior study. THIS IS AN ELECTRONICALLY VERIFIED FINAL REPORT 03/23/2024 3:51 PM - Electronically signed by Abdifatah Josue M.D. LB T: Report ID: [id number] Reading Location: [place] [address] Lucrecia Jorgensen PADDER IMG XR PROCEDURES Final Result * Screening Mammogram Bilateral W Yosef (06/22/2016 9:57 AM CDT) Anatomical Region Laterality Modality Breast Bilateral Mammography 06/22/2016 9:57 AM CDT Impressions 06/22/2016 11:05 AM CDT BI-RAD 2 BENIGN There is no mammographic evidence of malignancy. A 1 year screening mammogram is recommended. The patient has been or will be contacted. The patient will be entered into a reminder system with a target due date of 1 year for her next screening exam. Electronically signed by: Edy Olsen M.D., md/:06/22/2016 11:03:24 Business Administration Program Chair: Jaz BARAJAS)(Rey), [facility] letter sent: Normal Exam Reading location: BI-RADS: 2 Benign [EOD] Narrative 06/22/2016 11:05 AM CDT - MG BILATERAL DIGITAL SCREENING MAMMOGRAM 3D/2D WITH MEDIOLATERAL OBLIQUE CRANIOCAUDAL: 06/22/2016 The study was acquired using full field digital technology and interpreted from soft copy. 2D digital mammographic views, as well as 3D digital tomosynthesis were performed in the CC and MLO projections. CLINICAL: Routine annual screening mammogram. No current breast complaints. No personal history of breast cancer. COMPARISONS: Comparison is made to exams dated: 06/20/2015 mammogram, 05/22/2014 mammogram, 04/18/2013 mammogram, and 03/24/2012 mammogram - [facility]. BREAST TISSUE: The tissue of both breasts is extremely dense, which lowers the sensitivity of mammography. FINDINGS: There are benign appearing masses andcalcifications in both breasts, none of which appear suspiciously changed dating back for greater than 2 years. No significant masses, calcifications, or other findings are seen in either breast. There has been no significant interval change. Procedure Note Provider, MD Vincent - 06/24/2020 - MG BILATERAL DIGITAL SCREENING MAMMOGRAM 3D/2D WITH MEDIOLATERAL OBLIQUE CRANIOCAUDAL: 06/22/2016 The study was acquired using full field digital technology and interpretedfrom soft copy. 2D digital mammographic views, as well as 3D digital tomosynthesis were performed in the CC and MLO projections. CLINICAL: Routine annual screening mammogram. No current breastcomplaints. No personal history of breast cancer. COMPARISONS: Comparison is made to exams dated: 06/20/2015 mammogram,05/22/2014 mammogram, 04/18/2013 mammogram, and 03/24/2012 mammogram - [facility]. BREAST TISSUE: The tissue of both breasts is extremely dense, which lowersthe sensitivity of mammography. FINDINGS: There are benign appearing masses andcalcifications in bothbreasts, none of which appear suspiciously changed dating back for greater than 2years. No significant masses, calcifications, or other findings are seen ineither breast. There has been no significant interval change. IMPRESSION: BI-RAD 2 BENIGN There is no mammographic evidence of malignancy. A 1 year screeningmammogram is recommended. The patient has been or will be contacted. The patient will be entered into a reminder system with a target due dateof 1 year for her next screening exam. Electronically signed by: Edy Olsen M.D., md/:06/22/2016 11:03:24 Business Administration Program Chair: Jaz BARAJAS)(Rey), [facility] letter sent: Normal Exam Reading location: BI-RADS: 2 Benign [EOD] us Elena LOPEZ IMG MAMMO PROCED URES Final Result from Last 3 Months or Most Recently Relevant to Health Maintenance Insurance * Guarantor: Dakotah Jernigan Account Type Relation to Patient Date of Phone Billing Address Personal/Family Self 1955 [address] [facility] [address] [place] [address] IDPA MEDICARE * Guarantor: Dakotah Jernigan Account Type Relation to Patient Date of Phone Billing Address Personal/Family Self 1955 [address] [facility] [address] [place] [id number] MEDICARE [facility] Care Teams Counter Tacker Relationship Specialty Start Date End Date Elena Payton PA PCP - General Physician Senior Director 09/11/18
--- OUTSIDE RECORDS SUMMARY | 2024-04-16 15:14 | XMS_ITS | Clinical Summary ---
Author Organization [facility] [address] Address [address] [place] [address] Care Team Providers Care Splitting Machine Feeder Name Role Phone Elena Payton Primary Care Pr ovider Allergies Active Allergy Reactions Criticality Noted Date Comments Codeine Itching,Unknown Low 12/28/2016 Penicillins Fever,Shortness of breath,Unknown High 12/28/2016 Sulfa (Sulfonamide Antibiotics) Itching,Nausea And Vomiting,Unknown Medium 12/28/2016 Sulfamethoxazole-Trimethopri m Itching,Nausea And Vomiting,Unknown Low 12/28/2016 Unclassified Drug Unknown 12/28/2016 Medications inhalat.spacing dev,large mask (OptiCGraymaticsber Ivette Lg Mask) [facility] with Large Mask Active albuterol 2.5 mg [...] Hypothyroidism, unspecified 11/17/2011 Unspecified asthma, uncomplicated 11/17/2011 Encounters Date Type Department Care Team Description 03/23/2024 3:25 PM TECHNOLOGY INSTRUCTOR Ancillary Procedure [facility] Imaging at [address] [phone] Acute cough 03/23/2024 3:00 PM TECHNOLOGY INSTRUCTOR Office Visit [facility] Convenient Care at [address] [address] Lucrecia Greer NP Lower respiratory infection (e.g., bronchitis, pneumonia, pneumonitis, pulmonitis) (Primary Dx) from Last 3 Months Social History Tobacco Use Types Packs/Day Years Used Date Smoking Tobacco: Former Cigarettes Tobacco Cessation:Counseling Given: Not Answered Comments Unknown Sex and Gender Information Value Date Recorded Sex Assigned at Not on file Legal Sex Female 6:39 AM TECHNOLOGY INSTRUCTOR Gender Identity Not on file Sexual Orientation Not on file Obstetrics History Last Filed Vital Signs Vital Sign Reading Time Taken Comments Blood Pressure 104/71 03/23/2024 3:02 PM TECHNOLOGY INSTRUCTOR Pulse 85 03/23/2024 3:02 PM TECHNOLOGY INSTRUCTOR Temperature 36.8 C (98.3 F) 03/23/2024 3:02 PM TECHNOLOGY INSTRUCTOR Respiratory Rate 20 03/23/2024 3:02 PM TECHNOLOGY INSTRUCTOR Oxygen Saturation 95% 03/23/2024 3:02 PM TECHNOLOGY INSTRUCTOR Inhaled Oxygen Concentration - - Weight 85.7 kg (189 lb) 03/23/2024 3:02 PM TECHNOLOGY INSTRUCTOR Height 170.2 cm (5' 7.01 ) 02/04/2023 9:27 AM CS T Body Mass Index 29.59 02/04/2023 9:27 AM TECHNOLOGY INSTRUCTOR Plan of Treatment Health Maintenance Due Date Last Done Comments Colon Cancer Screening-Colonoscopy 1955 Depression Screening 1955 Fall Risk Assessment 1955 Hepatitis C Screening 1955 Osteoporosis Screening-Bone Density Scan 1955 Hepatitis B Screening 1972 Pneumococcal vaccine 65+ (1 of 2 - PCV) 1973 05/10/2011 Zoster Vaccine (1 of 2) 2004 Breast Cancer Screening-Mammogram 06/22/2017 06/22/2016, 06/20/2015, 05/22/2014, Additional history exists Well Visit 65+ 05/15/2019 Covid-19 Vaccine (3 - 2023-2 5 season) 2023 04/06/2020, 03/16/2020 Influenza Vaccine (#1) 2023 , 02/07/2014, 05/10/2011 DTaP/Tdap/Td Vaccine (4 - Td or Tdap) 09/22/2030 09/22/2020, 09/21/2012, 09/21/2012 Procedures Procedure Name Priority Date/Time Associated Diagnosis Comments POC INFLUENZA A/B, COVID-19 ANTIGEN Routine 03/23/2024 3:36 PM TECHNOLOGY INSTRUCTOR Lower respiratory infection (e.g., bronchitis, pneumonia, pneumonitis, pulmonitis) XR CHEST PA LATERAL 2 VIEWS Routine 03/23/2024 3:26 PM TECHNOLOGY INSTRUCTOR Acute cough SCREENING MAMMOGRAM BILATERAL W YOSEF Routine 06/22/2016 9:57 AM CDT from Last 3 Months or Most Recently Relevant to Health Maintenance Results * POC Influenza A/B, COVID-19 antigen (03/23/2024 3:36 PM TECHNOLOGY INSTRUCTOR) Influenza A Ag, POC Negative Negative [facility] Influenza B Ag, POC Negative Negative [facility] COVID-19 Ag POC Presumptive Negative Presumptive Negative, Invalid [facility] Nasal 03/23/2024 3:36 PM TECHNOLOGY INSTRUCTOR Lucrecia Jorgensen NP POINT OF CARE TEST ORDERABLES Final Result Performing Organization Address City/State/[facility] Co de Phone Number [facility] [address] [place] [address] * XR Chest PA Lateral 2 Views (03/23/2024 3:26 PM TECHNOLOGY INSTRUCTOR) Anatomical Region Laterality Modality Body, Chest N/A Digital Radiogra phy 03/23/2024 3:44 PM TECHNOLOGY INSTRUCTOR Narrative 03/23/2024 3:51 PM TECHNOLOGY INSTRUCTOR EXAM DESCRIPTION: XR CHEST PA LATERAL 2 [...] Abdifatah Josue M.D. LB T: Report ID: [id number] Reading Location: [id number] Procedure Note Abdifatah Josue MD - 03/23/2024 [...] Abdifatah Josue M.D. LB T: Report ID: [id number] Reading Location: [id number] Lucrecia Jorgensen RESEARCH ASST IMG XR PROCEDURES Final Result * Screening [...] signed by: Edy Olsen M.D., md/:06/22/2016 11:03:24 Ophthalmology Assistant: Jaz BARAJAS)(Rey), [facility] letter sent: Normal Exam Reading location: [...] mammogram, 04/18/2013 mammogram, and 03/24/2012 mammogram - [facility]. BREAST TISSUE: The tissue of both [...] mammogram, 04/18/2013 mammogram, and 03/24/2012 mammogram - [facility]. BREAST TISSUE: The tissue of both breasts [...] signed by: Edy Olsen M.D., md/:06/22/2016 11:03:24 Ophthalmology Assistant: Jaz Oneill RTEdith)(M), [facility] letter sent: Normal Exam Reading location: BI-RADS: 2 Benign [EOD] us Elena LOPEZ IMG MAMMO PROCED URES Final Result from Last 3 Months or Most Recently Relevant to Health Maintenance Insurance MEDICARE MEDICARE [facility] Address: [address] [address] [place] [address] IDPA Care Teams Splitting Machine Feeder Relationship Specialty Start Date End Date Elena Payton PA PCP - General Physician Elementary Math Tutor 09/11/18
--- OUTSIDE RECORDS SUMMARY | 2024-04-16 15:14 | XMS_ITS | Data Portability ---
Author Organization [facility], Main Office Address [address] [place] [address] Care Team Providers Care Well Digger Name Role Phone RICH ALEKSANDER Primary Care Provider [phone] ALEKSANDER VILLANUEVA Referring Provider [phone] Assessment No assessment recorded. Plan of Treatment Reminders Order Date Submit Date Provider Last Modified By Organization Details Last Modified Time Details Appointments New Patient 15 2024 10:30A M Nico Bowling DPM Not available Not available Not available Lab vitamin D, 25-hydrox y, total, serum [address] (Lab), [address] [place] [address], [phone], 11/29/2022 12:43:40 HbA1c (hemoglob in A1c), blood [address] (Lab), [address] [place] [address], [phone], 11/29/2022 12:43:39 BMP, serum or plasma [address] (Lab), [address] [place] [address], [phone], 11/29/2022 12:43:39 CBC w/ auto diff [address] (Lab), [address] [place] [address], [phone], 11/29/2022 12:43:39 hepatic function panel, serum [address] (Lab), [address] [place] [address], [phone], 11/29/2022 12:43:40 lipid panel, serum [address] (Lab), [address] [place] [address], [phone], 11/29/2022 12:43:40 noninvasi ve colorecta l cancer DNA + occult blood screening , QL, stool 2022 023 [place] [address] [facility] (Cologuard Orders Only), [address], [address], [place], [address], 03/04/2023 14:59:43 urinalysi s complete, reflex culture [address] (Lab), [address] [place] [address], [phone], 11/29/2022 12:43:39 T4, free, serum [address] (Lab), [address] [place] [address], [phone], 11/29/2022 12:43:39 TSH, serum or plasma 2022 023 [facility] (Lab), [address] [place] [address], [phone], 11/01/2022 14:26:30 Referral podiatris t referral 2022 023 JEFFJAIRO Bowling DPM, [address] [facility], [address], [place], [address], 01/09/2023 05:01:27 Procedures None recorded. Surgeries None recorded. Imaging MAMMO, screening , digital, bilateral 2022 023 [facility] (Mammography) , [address], [place], [address], 07/30/2022 16:28:21 Medication Orders loratadin e 10 mg tablet 2022 023 [id number], [address], [place], [place], [phone], 05/25/2022 17:48:17 Patient TargetsNo targets recorded. Patient InstructionsNo instructions recorded. 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 MIGRATION. Not Available 04/07/2022 05:21:49 12/17/19 21 11/20/2020 CT, abdom en + pelvi s, w/ contr ast No observ ation record ed. MIGRATION. [facility] (Imaging) [address] [place] [address] [facility], [place], [address], 04/07/2022 05:21:49 12/18/19 21 11/23/2020 CT, angio gram, chest , w/ contr ast No observ ation record ed. MIGRATION.[address] [place] [address] [address], [place], [address], 04/07/2022 05:21:49 12/18/19 21 11/23/2020 XR, chest , 2 view No observ ation record ed. MIGRATION. [facility] (Imaging) [facility], [place], [address], 04/07/2022 05:21:49 04/15/19 22 04/12/2021 XR, chest No observ ation record ed. MIGRATION. [facility] (Imaging) [address] [place] [address] [facility], [place], [address], 04/07/2022 05:21:49 04/18/19 22 03/26/2021 US, doppl er, venou s No observ ation record ed. MIGRATION. Not Available 04/07/2022 05:21:49 04/28/19 22 04/27/2021 MAMMO , scree barbara, digit al, bilat eral No observ ation record ed. MIGRATION. Not Available 04/07/2022 05:21:49 06/23/19 22 06/22/2021 CT, abdom en + pelvi s, w/ contr ast No observ ation record ed. MIGRATION. [place] [address], [place], [address], 04/07/2022 05:21:49 10/30/19 22 10/19/2021 US, doppl er, venou s No observ ation record ed. MIGRATION. [address] [facility], [place], [address], 04/07/2022 05:21:49 12/17/19 22 12/15/2021 XR, chest No observ ation record ed. MIGRATION. [facility] (Human Resources) [address] [place] [address], [place], [address], 04/07/2022 05:21:49 07/31/19 23 07/29/2022 MAMMO , scree barbara, digit al, bilat eral No observ ation record ed. [email or web address] [address], [address], 10/26/2022 18:26:57 12/10/1909/15/2022 XR, foot No observ ation record ed. [address] [facility] [address], [place], [address], 12/13/2022 17:13:24 Result Notes None recorded. Problems Name Problem SNOMED Code Status Onset Date Resolution Date Notes Provider Name and Address Organization Details Recorded Time Impacted cerumen of bilateral ears 5706690973873 108 Active 2021 Not Available [facility] 3 05:13:46 Trimalleol ar fracture 247270947 Active 2018 Not Available [facility] 3 05:13:46 Trimalleol ar fracture 073658399 Active 2018 Not Available [facility] 3 05:13:46 Bipolar disorder 60462273 Active Not Available [facility] 3 05:13:46 Blood glucose outside reference range 346087332 Active Not Available [facility] 3 05:13:46 Chronic urinary tract infection 467030059 Active Not Available [facility] 3 05:13:46 Elbow joint pain 915131699 Active Not Available [facility] 3 05:13:46 Long-term drug therapy Active 2021 Not Available [facility] 3 05:13:46 Anemia 244464456 Active Not Available [facility] 3 05:13:46 Eruption 256256698 Active Not Available [facility] 3 05:13:46 Cholestero l screening Active 2021 Not Available [facility] 3 05:13:46 Vaginal lesion 854129909 Active Not Available [facility] 3 05:13:46 Lower urinary tract symptoms 866463758 Active 2021 Not Available [facility] 3 05:13:46 Otitis externa 1361864 Active Not Available [facility] 3 05:13:46 Pain in left knee Active Not Available [facility] 3 05:13:47 Major depressive disorder 321431716 Active Not Available [facility] 3 05:13:47 Impairment of balance 734115386 Active Not Available [facility] 3 05:13:47 Hypothyroi dism 13790104 Active Not Available [facility] 3 05:13:47 Hip pain 20679954 Active Not Available [facility] 3 05:13:47 Wheezing 87913352 Active 2018 Not Available [facility] 3 05:13:47 Osteoporos is 18880351 Active Not Available [facility] 3 05:13:47 Otitis media 03026020 Active 2021 Not Available [facility] 3 05:13:47 Fatigue 15961642 Active Not Available [facility] 3 05:13:47 Facial paresthesi a 65961008 Active Not Available [facility] 3 05:13:47 Asthma 326383283 Active 2022 JESSICA Allen [address], [address] [place] [address], [phone] , [employer] 3 13:09:04 Hyperlipid emia 57927675 Active 2022 JESSICA Allen [address], [address] [place] [address], [address] , [employer] 3 15:24:04 Seasonal allergic rhinitis 178754063 Active 2022 JESSICA Allen [address], [place], [address] , [employer] 3 17:47:52 Acute urinary tract infection 703369790 Active 2022 JESSICA Allen [address], [place], [address] , [employer] [facility] 3 16:06:55 Problem Notes None recorded. Procedures Surgical History Date Name Laterality Status Provider Name and Address Organization Details Recorded Time 04/09/19 Most Recent Bone Density completed Not Available [facility] 04/07/2022 05:05:19 Tubal Ligation completed Not Available [facility] 04/07/2022 05:05:22 Cholecystectomy completed Not Available [facility] 04/07/2022 05:05:22 Orthopedic Surgery completed Not Available [facility] 04/07/2022 05:05:22 Imaging Results Imaging Date Name Status [facility]Modified by [facility] Details LastModified Time 06/22/2021 CT, abdomen + pelvis, w/ contrast completed [id number] [facility] [facility], [place], [address], 04/07/2022 05:21:49 11/23/2020 CT, angiogram, chest, w/ contrast completed [id number] [facility] [facility], [place], [address], 04/07/2022 05:21:49 11/23/2020 XR, chest, 2 view completed [id number] [facility] (Imaging) [address] [place] [address] [facility], [place], [address], 04/07/2022 05:21:49 08/27/2020 US, doppler, venous completed [id number] Information not available 04/07/2022 05:21:49 11/20/2020 CT, abdomen + pelvis, w/ contrast completed [id number] [facility] (Imaging) [address] [place] [address] [facility], [place], [address], 04/07/2022 05:21:49 04/12/2021 XR, chest completed [id number] [facility] (Imaging) [address] [place] [address] [address], [place], [address], 04/07/2022 05:21:49 03/26/2021 US, doppler, venous completed [id number] Information not available 04/07/2022 05:21:49 04/27/2021 MAMMO, screening, digital, bilateral completed [id number] Information not available 04/07/2022 05:21:49 10/19/2021 US, doppler, venous completed [id number], [place], [address], 04/07/2022 05:21:49 12/15/2021 XR, chest completed [id number] 026 [facility] (Human Resources) [address] [place] [address], [place], [address], 04/07/2022 05:21:49 07/29/2022 MAMMO, screening, digital, bilateral completed [email or web address] [address], [address], 10/26/2022 18:26:57 09/15/2022 XR, foot completed [email or web address], [address], 12/13/2022 17:13:24 Procedure Notes None recorded. Medical Equipment None Reported. Allergies Allergen ID Allergen Name Allergen Category Reaction Reaction Severity Criticality Documentation Date Start Date Code Code System Note Provider Name and Address Organization Details Recorded Time 9545 sulfameth izole Not available Not available Not available Not available 04/07/2022 88747 RxNorm Not Available [facility] 3 05:21:25 9546 sulfadime thoxine Not available Not available Not available Not available 04/07/2022 14614 RxNorm Not Available [facility] 3 05:21:25 9547 Substance with sulfonami de structure and antibacte rial mechanism of action (substanc e) medicatio n itching moderate Not available 04/07/2022 88977 8003 SNOMED Not Available [facility] 3 05:21:25 9548 Product containin g penicilli n (product) medicatio n fever moderate Not available 04/07/2022 35169 8001 SNOMED Not Available [facility] 3 05:21:25 9549 codeine medicatio n Not available Not available Not available 04/07/2022 2670 RxNorm Not Available [facility] 3 05:21:25 9550 Bactrim medicatio n itching mild Not available 04/07/2022 05830 9 RxNorm Not Available [facility] 3 05:21:25 Medications Name Sig Start Date Stop Date Status Note LastModified by Organization Details LastModified Time quetiapine 25 mg tablet active Not Available Not Available Not Available prednisone 10 mg tablet 05/24 completed Not Available Not Available Not Available doxycycline hyclate 100 mg capsule 07/13 completed Not Available Not Available Not Available benztropine 0.5 mg tablet TAKE 1 TABLET BY MOUTH EVERY DAY active Not Available Not Available No t Available quetiapine 300 mg tablet TAKE 1 TABLET BY MOUTH EVERY DAY AT BEDTIME 05/24 completed Not Available Not Available Not Available albuterol sulfate 2.5 mg/3 mL (0.083 %) solution for nebulizatio n USE 3 ML VIA NEBULIZER FOUR TIMES DAILY NEEDED 2023 active Not Available Not Available Not Avai lable cetirizine 10 mg tablet TAKE 1 TABLET BY MOUTH EVERY DAY NEEDED FOR ALLERGY SYMPTOMS 05/25 completed Not Available Not Available Not Available Stool Softener 100 mg capsule Take 1 capsule every day by oral route. 03/07 completed Not Available Not Available Not Available azithromyci n 250 mg tablet TK 2 TS PO ONCE D FOR DAY 1 THEN 1 T ONCE D FOR 4 DAYS active Not Available Not Available No t Available aspirin 325 mg tablet Take 1 tablet every day by oral route. 03/07 completed Not Available Not Available Not Available ibuprofen 800 mg tablet TAKE 1 TABLET BY MOUTH THREE TIMES DAILY FOR 7 DAYS NEEDED FOR PAIN 05/25 completed Not Available Not Available Not Available ofloxacin 0.3 % eye drops INSTILL 1 DROP IN EACH EYE FOUR TIMES DAILY active Not Available Not Available No t Available nystatin 100,000 unit/gram topical ointment APPLY TO THE AFFECTED AREA TWICE DAILY active Not Available Not Available No t Available phenazopyri dine 200 mg tablet TAKE 1 TABLET BY MOUTH THREE TIMES DAILY NEEDED FOR PAIN FOR 6 DOSES active Not Available Not Available No t Available ondansetron HCl 4 mg tablet TAKE 1 TABLET BY MOUTH EVERY 6 HOURS NEEDED FOR NAUSEA OR VOMITING 05/24 completed Not Available Not Available Not Available prednisone 20 mg tablet TAKE 2 TABLETS BY MOUTH DAILY FOR 5 DAYS active Not Available Not Available No t Available alendronate 70 mg tablet active Not Available Not Available Not Available clonazepam 0.5 mg tablet 07/11 completed Not Available Not Available Not Available Pyridium 100 mg tablet Take 1 tablet 3 times a day by oral route. 07/13 completed Not Available Not Available Not Available quetiapine 200 mg tablet TAKE 1 TABLET BY MOUTH EVERY DAY AT BEDTIME active Not Available Not Available No t Available clonazepam 1 mg tablet TAKE 1 TABLET BY MOUTH TWICE A DAY active Not Available Not Available No t Available permethrin 5 % topical cream active Not Available Not Available Not Available lidocaine HCl 2 % mucosal jelly Take 200 mg by mucous route. 09/20 completed Not Available Not Available Not Available ciprofloxac in 250 mg tablet 12/10 completed Not Available Not Available Not Available ciprofloxac in 500 mg tablet TAKE 1 TABLET BY MOUTH EVERY 12 HOURS FOR UTI active Not Available Not Available No t Available peg-electro lyte solution 420 gram oral solution 07/11 completed Not Available Not Available Not Available tramadol 50 mg tablet Take by oral route as needed for 5 days. 12/10 completed Not Available Not Available Not Available acetaminoph en 500 mg tablet TAKE 2 TABLETS BY MOUTH THREE TIMES DAILY NEEDED FOR PAIN active Not Available Not Available No t Available triamcinolo ne acetonide 0.1 % topical cream APPLY A THIN LAYER TO THE Arms BY TOPICAL ROUTE 2 TIMES PER DAY active Not Available Not Available No t Available risperidone 2 mg tablet TAKE 1 TABLET BY MOUTH ONCE A DAY active Not Available Not Available No t Available citalopram 20 mg tablet TAKE 1 TABLET BY MOUTH EVERY DAY active Not Available Not Available No t Available famotidine 20 mg tablet TAKE 1 TABLET BY MOUTH TWICE DAILY NEEDED FOR ABDOMINAL PAIN 05/24 completed Not Available Not Available Not Available tamsulosin 0.4 mg capsule TK 1 C PO D active Not Available Not Available No t Available benzonatate 100 mg capsule TK 1 C PO Q 8 H PRN 07/11 completed Not Available Not Available Not Available levothyroxi ne 50 mcg tablet TAKE 1 TABLET BY MOUTH EVERY DAY active Not Available Not Available No t Available cephalexin 500 mg capsule TAKE 1 CAPSULE BY MOUTH EVERY 12 HOURS active Not Available Not Available No t Available pantoprazol e 40 mg tablet,christine yed release Take 1 tablet every day by oral route. active Not Available Not Available No t Available nitrofurant oin macrocrysta l 100 mg capsule TK 1 C PO Q 12 H active Not Available Not Available No t Available tobramycin 0.3 % eye drops active Not Available Not Available Not Available triamcinolo ne acetonide 0.1 % topical ointment APPLY EXTERNALL Y TO THE AFFECTED AREA TWICE DAILY active Not Available Not Available No t Available benztropine 1 mg tablet TK ONE T PO BID 09/20 completed Not Available Not Available Not Available hydroxyzine HCl 25 mg tablet TK 1 TO 2 TS PO Q 6 TO 8 H 09/20 completed Not Available Not Available Not Available levalbutero l 1.25 mg/3 mL solution for nebulizatio n USE ONE VIAL FOR USE PO WITH NEBULIZER Q 6 H WHILE AWAKE. active Not Available Not Available No t Available cefuroxime axetil 500 mg tablet TK 1 T PO Q 12 H active Not Available Not Available No t Available Mylanta 200 mg-200 mg-20 mg/5 mL oral suspension 12/10 completed Not Available Not Available Not Available polyethylen e glycol 3350 17 gram/dose oral powder active Not Available Not Available Not Available levofloxaci n 500 mg tablet Take 1 tablet every 24 hours by oral route. 07/11 completed Not Available Not Available Not Available levofloxaci n 750 mg tablet active Not Available Not Available Not Available albuterol sulfate HFA 90 mcg/actuati on aerosol inhaler INHALE 2 PUFFS BY MOUTH EVERY 4 TO 6 HOURS NEEDED active Not Available Not Available No t Available ketoconazol e 2 % topical cream 07/11 completed Not Available Not Available Not Available ondansetron 4 mg disintegrat ing tablet DISSOLVE 1 TABLET ON THE TONGUE EVERY 8 HOURS NEEDED FOR NAUSEA OR VOMITING 05/24 completed Not Available Not Available Not Available cefdinir 300 mg capsule TAKE 1 CAPSULE BY MOUTH EVERY 12 HOURS FOR 7 DAYS 01/26 completed Not Available Not Available Not Available fluticasone propionate 50 mcg/actuati on nasal spray,suspe nsion SPRAY ONCE IN EACH NOSTRIL BID active Not Available Not Available No t Available doxycycline hyclate 100 mg tablet TK 1 T PO BID FOR 7 DAYS 07/11 completed Not Available Not Available Not Available loratadine 10 mg tablet TAKE 1 TABLET BY MOUTH EVERY DAY IN THE MORNING active Not Available Not Available No t Available ipratropium bromide 0.02 % solution for inhalation active Not Available Not Available N ot Available progesteron e micronized 100 mg capsule TK 1 C PO QD 09/20 completed Not Available Not Available Not Available tobramycin 0.3 %-dexametha sone 0.1 % eye drops,suspe nsion INSTILL 1 DROP INTO AFFECTED EYE(S) BY OPHTHALMI C ROUTE EVERY 6 HOURS x 5 days 09/20 completed Not Available Not Available Not Available neomycin-po lymyxin-hyd rocort 3.5 mg-10,000 unit/mL-1 % ear drops,susp PLACE 3 DROPS IN LEFT EAR TWICE DAILY 12/10 completed Not Available Not Available Not Available Estrace 0.01% (0.1 mg/gram) vaginal cream I 1 GRAM VAGINALLY WEEKLY 01/26 completed Not Available Not Available Not Available cyclosporin e 0.05 % eye drops in a dropperette active Not Available Not Available Not Available Ciprodex 0.3 %-0.1 % ear drops,suspe nsion INSTILL 4 DROPS into right ear canal BY OTIC ROUTE 2 TIMES PER DAY FOR 7 DAYS active Not Available Not Available No t Available nitrofurant oin monohydrate /macrocryst als 100 mg capsule TAKE 1 CAPSULE BY MOUTH EVERY 12 HOURS FOR 7 DAYS active Not Available Not Available No t Available diazepam 5 mg-7.5 mg-10 mg rectal kit Insert 10 mg by rectal route. 09/20 completed Not Available Not Available Not Available Advair HFA 115 mcg-21 mcg/actuati on aerosol inhaler INHALE 1 PUFF BY MOUTH EVERY 12 HOURS active Not Available Not Available No t Available Xopenex HFA 45 mcg/actuati on aerosol inhaler 09/28 completed Not Available Not Available Not Available quetiapine 50 mg tablet TAKE 1 TABLET BY MOUTH EVERY DAY active Not Available Not Available No t Available quetiapine 400 mg tablet TK 1 T PO QHS 09/20 completed Not Available Not Available Not Available ProChamber USE DIRECTED active Not Available Not Available No t Available Centrum Silver Ultra Women's takes one tablet 03/07 completed Not Available Not Available Not Available Xarelto 10 mg tablet 07/11 completed Not Available Not Available Not Available Xarelto 15 mg tablet TK 1 T PO BID 07/11 completed Not Available Not Available Not Available Xarelto 20 mg tablet TK 1 T PO QD 07/11 completed Not Available Not Available Not Available [facility] with Large Mask 05/25 completed Not Available Not Available Not Available Eliquis 5 mg tablet Take 1 tablet twice a day by oral route. 05/20 completed Not Available Not Available Not Available Breo Ellipta 100 mcg-25 mcg/dose powder for inhalation 07/11 completed Not Available Not Available Not Available acetaminoph en 325 mg capsule Take 2 capsules as needed by oral route. 04/01 completed Not Available Not Available Not Available Paxlovid 300 mg (150 mg x 2)-100 mg tablets in a dose pack TAKE 2 TABLETS (NIRMATRE LVIR) AND TAKE 1 TABLET (RITONAVI R) BY MOUTH TWICE A DAY FOR 5 DAYS active Not Available Not Available No t Available Vitals Date Recorded Body mass index (BMI) Body height Oxygen saturation Oxygen saturation in Arterial blood by Pulse oximetry Heart rate Respiratory rate Body temperature Body weight Systolic blood pressure Diastolic blood pressure Provider Name and Address Organization Details Last Updated DateTime 1 28.3 kg/m2 170.18 cm 95 % 95 % 71 /min 16 /min 97.2 [degF] 00008.7 8 g 122 mm[Hg] 80 mm[Hg] Not Available [facility] 3 05:11:19 Date Recorded Body mass index (BMI) Body height Oxygen saturation Oxygen saturation in Arterial blood by Pulse oximetry Heart rate Body temperature Body weight Systolic blood pressure Diastolic blood pressure Provider Name and Address Organization Details Last Updated DateTime 1 27.7 kg/m2 170.18 cm 96 % 96 % 96 /min 98 [degF] 45597.8 5 g 110 mm[Hg] 60 mm[Hg] Not Available [facility] 3 05:11:19 Date Recorded Body mass index (BMI) Body height Oxygen saturation Oxygen saturation in Arterial blood by Pulse oximetry Heart rate Body temperature Body weight Systolic blood pressure Diastolic blood pressure Provider Name and Address Organization Details Last Updated DateTime 1 27.8 kg/m2 170.18 cm 96 % 96 % 112 /min 96.2 [degF] 57983 g 120 mm[Hg] 80 mm[Hg] Not Available [facility] 3 05:11:19 Date Recorded Body mass index (BMI) Body height Oxygen saturation Oxygen saturation in Arterial blood by Pulse oximetry Heart rate Respiratory rate Body temperature Body weight Systolic blood pressure Diastolic blood pressure Provider Name and Address Organization Details Last Updated DateTime 2 30 kg/m2 170.18 cm 97 % 97 % 99 /min 16 /min 97.6 [degF] 86349.3 g 110 mm[Hg] 70 mm[Hg] Not Available [facility] 3 05:11:19 Date Recorded Body height Body temperature Body mass index (BMI) Body weight Respiratory rate Oxygen saturation Oxygen saturation in Arterial blood by Pulse oximetry Heart rate Systolic blood pressure Diastolic blood pressure Provider Name and Address Organization Details Last Updated DateTime 3 170.18 cm 97.6 [degF] 31 kg/m2 13886.2 9 g 16 /min 98 % 98 % 104 /min 128 mm[Hg] 80 mm[Hg] EDWARD Valles [place] - [facility] [place] [employer] [facility] 3 14:42:15 Social History Question Answer Notes LastModified by Nuenz[employer] ion Details LastModified Time Tobacco Smoking Status Never Smoker Not Available [facility] 04/07/2022 05:04:25 What Is Your Level Of Alcohol Consumption? None [id number] Information not available 04/07/2022 What Is Your Level Of Caffeine Consumption? Occasional [id number] Information not available 04/07/2022 How Much Tobacco Do You Chew? None MIGRATION.[id number] Information not available 04/07/2022 In The 14 Days Before Symptom Onset, Have You Had Close Contact With A Laboratory-confir med COVID-19 While That Case Was Ill? No MIGRATION.[id number] Information not available 04/07/2022 In The 14 Days Before Symptom Onset, Have You Had Close Contact With A Person Who Is Under Investigation For COVID-19 While That Person Was Ill? No MIGRATION.[id number] Information not available 04/07/2022 Are You Currently Employed? No [email or web address] Information not available 05/24/2022 What Type Of Diet Are You Following? REGULAR MIGRATION.[id number] 6359 Information not available 04/07/2022 Which Illicit Or Recreational Drugs Have You Used? None MIGRATION.[id number] 8502 Information not available 04/07/2022 Do You Or Have You Ever Used E-cigarettes Or Vape? Never Used Electronic Cigarettes MIGRATION.[id number] Information not available 04/07/2022 What Is Your Occupation? Unemployed MIGRATION.[id number] 8422 Information not available 04/07/2022 Have There Been Any Changes To Your Family Or Social Situation? No MIGRATION.617115 6040 Information not available 04/07/2022 Do You Use Insect Repellent Routinely? No MIGRATION.062009 1282 Information not available 04/07/2022 What Is Your Relationship Status? Single MIGRATION.299423 0331 Information not available 04/07/2022 Do You Use Your Seat Belt Or Car Seat Routinely? Yes MIGRATION.450792 6096 Information not available 04/07/2022 Do You Have Smoke And Carbon Monoxide Detectors In Your Home? Yes MIGRATION.448669 9910 Information not available 04/07/2022 Do You Or Have You Ever Used Smokeless Tobacco? Never Used Smokeless Tobacco MIGRATION.927108 1343 Information not available 04/07/2022 How Much Tobacco Do You Smoke? No MIGRATION.707342 5181 Information not available 04/07/2022 Do You Use Any Illicit Or Recreational Drugs? No MIGRATION.425383 6756 Information not available 04/07/2022 Do You Use Sunscreen Routinely? Yes MIGRATION.534860 0015 Information not available 04/07/2022 Have You Recently Traveled Abroad? No MIGRATION.306131 4654 Information not available 04/07/2022 Do You Have Any Dietary Restrictions? No MIGRATION.695631 7148 Information not available 04/07/2022 Do You Or Have You Ever Used Any Other Forms Of Tobacco Or Nicotine? No MIGRATION.677343 1972 Information not available 04/07/2022 Sex: Unknown Functional Status Question Answer Note LastModified by Organizat ion Details LastModified Time Do you have difficulty walking or climbing stairs? No MIGRATION.[id number] 026 Information not available 04/07/2022 Do you have transportation difficulties? Yes MIGRATION.5514844 026 Information not available 04/07/2022 Are you able to walk? YESWOREST MIGRATION.6620773 026 Information not available 04/07/2022 Are you able to care for yourself? No Information n ot available 05/24/2022 Do you have difficulty dressing or bathing? No MIGRATION.9304636 026 Information not available 04/07/2022 What is your exercise level? None MIGRATION.7195610 026 Information not available 04/07/2022 Mental Status Question Answer Note LastModified by Organization D etails LastModified Time Do you have difficulty concentrating, remembering or making decisions? Yes [email or web address] Information no t available 05/24/2022 Family History Relationship Description Onset Age of this Age Resolved Age Notes LastModified by Organization Details LastModified Time Mother Motor vehicle traffic accident [id number] Not available 04/07/2022 05:05:28 Medical History Condition Response LUNG DISEASE/DISORDER Y HYPOTHYROIDISM Y BOWEL PROBLEMS Y DEPRESSION (INCLUDING POST ) Y OSTEOPOROSIS Y URINARY/BLADDER/KIDNEY PROBLEMS Y HEARTBURN / REFLUX Y ASTHMA Y ANXIETY DISORDER Y BRONCHITIS Y Gynecological History Statement/Question Response Date of Last Mammogram 04/27/2021 Current Control Method Tubal Ligat ion Most Recent Bone Density 04/09/2019 Obstetrics History GPAL:G 0 P 0 0 0 0 Immunizations Vaccine Type Date Status Note Provider Nam e and Address Organization Details Recorded Time influenza, unspecified formulation 5 completed Not Available [facility] 04/07/2022 05:21:16 Past Encounters Encounter ID Performer Location Encounter Start Date Encounter Closed Date Diagnosis/Indication Diagnosis SNOMED-CT Code Diagnosis ICD10 Code Diagnosis Note [id number] [facility] [address] [place] [address] 07/14/2020 00:00:00 08/02/2020 23:47:21 [id number] [facility] [address] [place] [address] 07/29/2020 00:00:00 08/05/2020 01:23:05 [id number] [facility] [address] [place] [address] 08/27/2020 00:00:00 09/06/2020 08:48:14 [id number] [facility] [address] [place] [address] 04/01/2021 00:00:00 04/04/2021 19:53:54 [id number] JESSICA Allen [facility] [address] [place] [address] 05/25/2022 14:05:06 05/25/2022 15:31:44 Hypothyroidism 48112613 E03.9 stable on supplement . due for labs. Major depr essive disorder 439892328 F32.9 stable on celexa therapy Blood gluc ose outside reference range 374977798 R73.09 due for a1c screening. Asthma 075145119 J45.90 9 stable. on advair Chronic ur inary tract infection 214712850 N39.0 UA w/cx due Long-term drug therapy 213517440 Z79.899 routine bmp, cbc, and LFT due Osteoporosis 90118789 M8 1.0 vit D screening due Hyperlipidemia 27539372 E78.5 fasting lipids are due Screening mammography 24 519514 Z12.31 mammogram due Unable to cut own toenails 544579548 Z74.1 refer to ice cream freezer Seasonal a llergic rhinitis 403969983 J30.2 start loratidine 10mg daily. Screening for malignant neoplasm of colon 616656152 Z12.11 pt would like cologuard testing option. Health Concerns Section Related Observation LastModified by Organization Detai ls LastModified Time None Recorded Concern Status LastModified by Organization Details LastModified Time None Recorded Advance Directives Directive None Recorded Payers Encounter Date Sequence Insurance Name Policy Number Policy Oliveira Covered Member ID Oliveira Member ID Guarantor Name 05/25/2022 1 [place] Dakotah Jernigan [id number] Dakotah Jernigan 05/25/2022 2 [place] WHEN MEDICARE OR MEDICARE REPLACEMENT PRIMARY) Dakotah Jernigan [id number] Dakotah Jernigan Notes Date Note Type Note Provider Name and Address Organization Details Recorded Time 021 text/ht ml Generic HPI TemplateReported bypatient.Notes:Pt is here for an e/r f/u. She went on 07/07 for nausea/diarrhea and they dx her w/UTI and gave her IV abx only. Today she states she feels sluggish. No more diarrhea or nausea. Not Available [place] [facility] 08/02/2020 23:47:21 021 text/ht ml Anxiety/DepressionReported bypatient.Severity:denies suicidal ideations; able to maintain relationships; does not interfere with activities of daily living Context:no major life stressors Associated Symptoms:denies homicidal ideations; no significant weight gain; no significant weight loss; no visual/auditory hallucinations; no delusions; no shortness of breath; mood good; no anxiety; no crying spells; no panic; no isolation; sleeping well; appetite good; energy good; no apathy; maintaining functionalityHypothyroidReported bypatient.Associated Symptoms:no weakness; no lightheadedness; no fatigue; no cold intolerance; no constipation; no weight gain; no involuntary weight loss; normal mood; no menstrual irregularity; no pain; no dry/coarse skin; no edema; no deepening of the voice; no hoarseness; no goiter; no mass detected; no chest pain; no palpitations Treatment:taking medication as directed Not Available [employer] [facility] [employer] [facility] 08/05/2020 01:23:05 021 text/ht ml Allergy/sinusitisReported bypatient.Onset/Timing:new onset; initially started 2days ago Location:no headache; no facial pain; no sinus pain; no sore throat; no constantly clearing the throat; no ear fullness; no eye itching;nasal passage blockage bilaterally Quality:no pain Duration:continuous Severity:no pain;frequent breathing through the mouth Context:worse with seasonal allergen exposure;worse around pollenGeneric HPI TemplateReported bypatient.Notes:Pt is here today for a ER follow up. Was on 08/17/20, Was seen for Anand. Leg swelling. ER ran blood work, all systems were reviewed and were unremarkable. Dx was Leg edema. Since d/c pt is fine no more leg swelling Not Available [employer] [facility] 09/06/2020 08:48:14 022 text/ht ml EaracheReported bypatient.Location:right Quality:throbbing Severity:same; intermittent Duration:symptoms lasting over 2 weeks Timing:gradual; actual date: (1 month) Context:no sick contacts; no recent swimming/water in ear; no exposure to second hand smoke; no head trauma; not grinding teeth; no recent air travel Modifying Factors:does not hurt to lie on, or pull on ear; does not hurt to chew Associated Symptoms:no hearing loss; no popping noise in the ears; no fever; ears do not feel full; no swelling; no redness; no itching (pruritus); no ear bleeding; no vertigo;discharge from the ears;nose/sinus problems;ringing in the ears; sore throatHypothyroidismReported bypatient.Notes:Pt is on supplement thyroid medication and due for labs. Not Available [place] [facility] 04/04/2021 19:53:54 023 text/ht ml Anxiety/DepressionReported bypatient.Quality:doesnt matter time of day. Severity:denies suicidal ideations; able to maintain relationships; does not interfere with activities of daily living Duration:symptoms lasting over 2 weeks Onset/Timing:still present Context:no major life stressors Modifying Factors:rx Associated Symptoms:denies homicidal ideations; no significant weight gain; no significant weight loss; no visual/auditory hallucinations; no delusions; no shortness of breathHypothyroidismReported bypatient.Quality:not changing Duration:constant Onset/Timing:still present Context/Risk:normal thyroid levels; no history of head or neck radiation during childhood; no history of thyroid disease; no history of hypothyroidism; no history of hyperthyroidism; no excess iron exposure;history of hypothyroidism;female gender Modifying Factors:medication Exercisegets exercise Associated Symptoms:no cold intolerance; no heat intolerance; no weight loss; no weight gain; no double vision; no dry eyes; no hoarseness; no difficulty swallowing; no neck masses; no deepening of the voice; no fast heart rate; no increased blood pressure; no palpitations; no chest pain; no chest tightess or pressure; no constipation; no diarrhea; no vomiting; no decreased appetite; no loose stools; no irregular menstrual periods; no excessive sweating; no joint pain; no numbness; no tingling of the hands or feet; no dry skin; no tremor; no nervousness; no anxiety; no depression; no fatigue; no sleep difficulties; no skin changes; no hair changes JESSICA Allen [address] [place] [address], [address] [place], [address], [place] [facility] 06/04/2022 13:50:05 OBGyn Episode No OBEpisode recorded.
--- OUTSIDE RECORDS SUMMARY | 2024-04-16 15:14 | XMS_ITS | Clinical Summary ---
Author Organization [facility] Care Team Providers Care Medical Associate Name Role Phone Unavailable Primary Care Provider Unavailabl e Social History Tobacco Use Types Packs/Day Years Used Date Smoking Tobacco: Never Assessed Comments Unknown Sex and Gender Information Value Date Recorded Sex Assigned at Not on file Legal Sex Female 11:17 PM CDT Gender Identity Not on file Sexual Orientation Not on file Plan of Treatment Health Maintenance Due Date Last Done Comments DEXA Bone Density 1955 Hepatitis C Virus (HCV) Screening 1955 TdaP Immunization 1955 Colonoscopy 05/15/1999 Colorectal Cancer Screening 05/15/1999 Cologuard 2004 Immunochemical Fecal Occult Blood 2004 Mammogram 2004 Pneumococcal Immunization (5 0+ years) (1 of 1 - PCV) 2004 Zoster Immunization (1 of 2) 2004 Influenza Immunization (#1) 2023 SARS-COV-2 Immunization ( - 2023- season) 2023 Respiratory Syncytial Virus (RSV) Immunization (Adult) (1 - 1-dose 75+ series) 2029 Hepatitis B Immunization Aged Out No longer eligible based on patient's age to complete this topic Meningococcal Immunization (ACWY) Aged Out No longer eligible based on patient's age to complete this topic Rotavirus Immunization Aged Out No lo nger eligible based on patient's age to complete this topic
--- OUTSIDE RECORDS SUMMARY | 2024-04-16 15:15 | XMS_ITS ---
Author Organization [facility] Address [address] [place] [address] Care Team Providers Care Chrome Tanner Name Role Phone Jewel Gonzales Primary Care Provider [facility] Unav ailable Unavailable Allergies Allergen (clinical drug ingredient) Drug/Non Drug Allergy documented on EMR Reaction Allergy Type Onset Date Status sulfamethoxazole / trimethoprim Bactrim Unknown Drug Allergy Active codeine Codeine Sulfate Unknown Drug Allergy A ctive penicillin G Penicillin G Potassium Unknown Drug Allergy Active Sulfur Unknown Drug Allergy Active REASON FOR VISIT Psych F/U, CSSR Interpretation and Follow UP Plan, BMI over 25 non smoker Medications Medication SIG (Take, Route, Frequency, Duration) Notes Start Date End Date Status QUEtiapine Fumarate 50 MG 1 tablet Orally Once a day for 30 days Active Benztropine Mesylate 0.5 MG 1 tablet at bedtime Orally Once a day for 30 days Active Citalopram Hydrobromide 20 MG 1 tablet Orally Once a day for 30 days Active Levothyroxine Sodium 50 MCG 1 tablet in the morning on an empty stomach Orally Once a day doseage uncertain Active QUEtiapine Fumarate 300 MG 1 tablet at bedtime Orally Once a day for 30 day(s) 03/24/2021 Not-Taking clonazePAM 1 MG 1 tablet Orally twice a day for 30 days F41.9 03/20/2024 Active RisperDAL 2 MG 1 tablet Orally Once a day for 30 days Active SEROquel 200 MG 1 tablet at bedtime Orally Once a day for 30 days Active Social History Tobacco Use: Social History Observation Description Date Details (start date - stop date) Former Smoker NA - NA Sex Assigned At : Social History Observation Description Sex Assigned At Female Dont use, Tobacco Use/Smoking Question Answer Notes Are you a former smoker Vital Signs Weight 181.8 lbs 03/20/2024 Height 67 in 03/20/2024 BMI 28.47 kg/m2 03/20/2024 Blood pressure systolic 126 mm Hg 03/20/19 25 Blood pressure diastolic 82 mm Hg 025 Heart Rate 79 /min 03/20/2024 Oximetry 97 % 03/20/2024 Respiratory Rate 16 /min 03/20/2024 Encounters Encounter Location Date Provider Diagnosis [address] [place] [address] 03/20/2024 Jewel Gonzales Nutritional counseli ng Z71.3 ; Anxiety F41.9 and Bipolar 1 disorder F31.9 Assessments Encounter Date Diagnosis (ICD Code) Assessment Notes Treatment Notes Treatment Clinical Notes Section Notes 03/20/2024 Nutritional counseling (ICD-10 - Z71.3) 03/20/2024 Anxiety (ICD-10 - F41.9) 03/20/2024 Bipolar 1 disorder (ICD-10 - F31.9) risk & benefits discussed in detail. Continue current treatment. No involuntary movements reported. Plan Of Treatment Medication Medication Name Sig Start Date Stop Date Notes QUEtiapine Fumarate 50 MG 1 tablet Orall y Once a day for 30 days Benztropine Mesylate 0.5 MG 1 tablet at bedtime Orally Once a day for 30 days Citalopram Hydrobromide 20 MG 1 tablet O rally Once a day for 30 days clonazePAM 1 MG 1 tablet Orally twic e a day for 30 days 03/20/2024 F41.9 RisperDAL 2 MG 1 tablet Orally Once a day for 30 days SEROquel 200 MG 1 tablet at bedtime Orally Once a day for 30 days Treatment Notes Assessment Notes Bipolar 1 disorder risk & benefits disc ussed in detail. Continue current treatment. No involuntary movements reported. 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 W as hospitalized Y es , Yes , No , No , No , No , No. Pt reports doing alright. Still using walker. Had a fall and broke pelvis and was in [facility] assisted for almost 2 months. Now she is back in her apartment. Mood has been stable. Said her medications are working fine. Denies side effects. Denies halluciantion or delusion. Denies manic or hypo manic symptoms. Denies anger issues. Denies alcohol or illicit drugs. Denies SI/HI. She has been with boyfriend,Ty off & on since 23 years. 95 year old Brother in law( WW 2 ) in April 2021 after he was in assisted due to dementia. Her 87 year old sister lives alone. MSE- - Alert,Ox4,mood is pleasant. Affect is appropriate to mood. Uses walker.Denies side effects. Denies hallucination or delusion. Denies manic or hypomanic symptoms. Insight & judgement alright. D epression Screening: PHQ-9 L ittle interest or pleasure in doing things S everal days, F eeling down, depressed, or hopeless S everal days, T rouble falling or staying asleep, or sleeping too much N ot at all, F eeling tired or having little energy M ore than half the days, P oor appetite or overeating S everal days, F eeling bad about yourself or that you are a failure, or have let yourself or your family down N ot at all, T rouble concentrating on things, such as reading the newspaper or watching television N ot at all,?Moving or speaking so slowly that other people could have noticed; or the opposite, being so fidgety or restless that you have been moving around a lot more than usual N ot at all, T houghts that you would be better off or of hurting yourself in some way N ot at all, T otal Score 5 , I nterpretation M ild Depression. S creening: [place] Suicide Severity Rating Scale (LF) D o you want to initiate with S creener form, 1 . Wish to be : Have you wished you were or wished you could go to sleep and not wake up? N o, 2 . Suicidal Thoughts: Have you actually had any thoughts of killing yourself? N o, 6 . Suicide Behavior Question: Have you ever done anything,started to do anything, or prepared to end your life? N o, I nterpretation: L ow Risk. C SSRS Interpretation and Follow Up Plan: CSSRS Interpretation and Follow Up Plan C SSRS Screen documented using SF Y es, R isk Disposition from SF L ow - No Follow Up Plan Required, F ollow Up Plan N o Follow Up Plan required at this time.. P reventative Health and Wellness follow-up: Action Plans for Clinical Quality Measures: B reast Cancer Screening: N ot addressed during this visit. See notes for details., C olorectal Cancer Screening: N ot addressed during this visit. See notes for details.. . * Medical History: * Surgical History: B roken ankle surg and Rehab Sep 2018UTI/Dehydration, hospitalized 2014Pnuemonia 2014Bilateral hip replacements 2000Tubal Ligation 1997 * Hospitalization/Major Diagno stic Procedure: E R visits for blood clots, kidney stones,asthma attacks [facility] * Family History: F ather: . M other: . 1 sister(s) - healthy. . * Social History: P rimary Social History: L iving Arrangement L iving Arrangement: I ndependent Living, I s this a supportive environment? Y es. A lcohol Use A lcohol Use Frequency: N ever. I llicit Substance Usage I llicit Substance Usage: N o. E mployment Status E mployment Status:?Unemployed. T obacco Use - do not use T obacco Use: S tatus Reviewed with Patient.? T obacco Use: D ont use, Tobacco Use/Smoking A re you a f ormer smoker. M iscellaneous: M ethod of learning P referred method of learning: H earing. * Medications: T akingLevothyroxine Sodium 50 MCG Tablet 1 tablet in the morning on an empty stomach Orally Once a day , Notes to Pharmacist: doseage uncertainSEROquel 200 MG Tablet 1 tablet at bedtime Orally Once a day clonazePAM 1 MG Tablet 1 tablet Orally twice a day , Notes to Pharmacist: F41.9RisperDAL 2 MG Tablet 1 tablet Orally Once a day Benztropine Mesylate 0.5 MG Tablet 1 tablet at bedtime Orally Once a day Citalopram Hydrobromide 20 MG Tablet 1 tablet Orally Once a day QUEtiapine Fumarate 50 MG Tablet 1 tablet Orally Once a day Taking Levothyroxine Sodium 50 MCG Tablet 1 tablet in the morning on an empty stomach Orally Once a day , Notes to Pharmacist: doseage uncertainTaking SEROquel 200 MG Tablet 1 tablet at bedtime Orally Once a day Taking clonazePAM 1 MG Tablet 1 tablet Orally twice a day , Notes to Pharmacist: F41.9Taking RisperDAL 2 MG Tablet 1 tablet Orally Once a day Taking Benztropine Mesylate 0.5 MG Tablet 1 tablet at bedtime Orally Once a day Taking Citalopram Hydrobromide 20 MG Tablet 1 tablet Orally Once a day Taking QUEtiapine Fumarate 50 MG Tablet 1 tablet Orally Once a day Not-TakingQUEtiapine Fumarate 300 MG Tablet 1 tablet at bedtime Orally Once a day Not-Taking QUEtiapine Fumarate 300 MG Tablet 1 tablet at bedtime Orally Once a day * Allergies: P enicillin G PotassiumSulfurBactrimCodeine Sulfateno[Allergies Verified] Objective: * Vitals: I nitials: sw, Wt:181.8, Ht: 67, BMI:28.47, BP:126/82, HR:79, Oxygen sat %:97, RR:16, Pain scale:0. Assessment: * Assessment: 1. N utritional counseling - Z71.3 (Primary) 2 . A nxiety - F41.9 ? 3 . B ipolar 1 disorder - F31.9 Plan: * Treatment: * Recommended Wellness and Pre vention Guidelines: * S tatus A lert L ast Done N ext Due A ction Taken N ONCOMPLIANT B reast cancer screening - 0 03/20/2024 - N ONCOMPLIANT C olorectal cancer screening - 0 03/20/2024 - * Procedure Codes: 3 008F BODY MASS INDEX [id number] MEDICAL NUTRITION, INDIV, [id number] TOBACCO [id number] [facility] VISIT ESTABLISHED PATIENT * Preventive Medicine: Counseling: C are goal follow-up plan: B VT management provided Padilla Peterson Normal BMI Follow-up L ifestyle education regarding diet. * Follow Up: 3 Months * * KFEED MILLER Sign off status: Completed true * Provider: Padilla Gonzales Date: 0 03/20/2024 Generated for Tony bess/Salvatore/Gt on: 0 04/16/2024 03:15 PM CDT History and Physical Notes * HPI (History of Present Illness) Category Sub-Category Detail Notes Category Not es Interim History Was hospitalized Yes , Yes , No , No , No , No , No Pt reports doing alright. Still using walker. Had a fall and broke pelvis and was in [facility] home for almost 2 months. Now she is back in her apartment. Mood has been stable. Said her medications are working fine. Denies side effects. Denies halluciantion or delusion. Denies manic or hypo manic symptoms. Denies anger issues. Denies alcohol or illicit drugs. Denies SI/HI. She has been with boyfriend,Ty off & on since 23 years. 95 year old Brother in law( WW 2 ) in April 2021 after he was in assisted due to dementia. Her 87 year old sister lives alone. MSE- - Alert,Ox4,mood is pleasant. Affect is appropriate to mood. Uses walker.Denies side effects. Denies hallucination or delusion. Denies manic or hypomanic symptoms. Insight & judgement alright. Emergency room visit Yes , Yes , Yes , Y es , No , No , Yes Depression Screening PHQ-9 Little inte rest or pleasure in doing things: Several days Feeling down, depressed, or hopeless: Se veral days Trouble falling or staying asleep, or sl eeping too much: Not at all Feeling tired or having little energy: M ore than half the days Poor appetite or overeating: Several day s Feeling bad about yourself o r that you are a failure, or have let yourself or your family down: Not at all Trouble concentrating on thi ngs, such as reading the newspaper or watching television: Not at all Moving or speaking so slowly that other people could have noticed; or the opposite, being so fidgety or restless that you have been moving around a lot more than usual: Not at all Thoughts that you would be b natalia off or of hurting yourself in some way: Not at all Total Score: 5 Interpretation: Mild Depression Screening [place] Suicide Sev erity Rating Scale (LF) Do you want to initiate with: Screener form 1. Wish to be : Have you wished you were or wished you could go to sleep and not wake up?: No 2. Suicidal Thoughts: Have you actually had any thoughts of killing yourself?: No 6. Suicide Behavior Question: Have you ever done anything,started to do anything, or prepared to end your life?: No Interpretation:: Low Risk Preventative Health and Wellness follow-up Action Plans for Clinical Quality Measures: Breast Cancer Screening:: Not addressed during this visit. See notes for details. . Colorectal Cancer Screening: : Not addressed during this visit. See notes for details. CSSRS Interpretation and Follow Up Plan CSSRS Interpretation and Follow Up Plan CSSRS Screen documented using SF: Yes Risk Disposition from SF: Low - No Follo w Up Plan Required Follow Up Plan: No Follow Up Plan requir ed at this time.
--- OUTSIDE RECORDS SUMMARY | 2024-04-16 15:15 | XMS_ITS ---
Author Organization [facility] Care Team Providers Care Director Energy Name Role Phone Janet, Jewel Unavailable Unavailable Néstor Wu Unavailable Unavailable Allergies and adverse reactions Code CodeSystem Substance Reaction Severity StartDate Concern Status codiene, PCN, vilchis lfa, bactrim, sulfamethoxazole Unknown Unknown active Care Team Name Role Address Phone Organization Dates Néstro Wu PCP [address], [place], [address], [place] (Office): [facility] 05/05/2015 - 09/07/2016 Arif Habib Attending Physician [address] [place] [address], [address], [place] (Office): : : [facility] 05/05/2015 - 09/07/2016 Immunizations Immunization Status Vaccine Details Vaccine Code CodeSystem Date Notes Influenza completed Influenza, high-dose, split virus, quadrivalent, injectable, preservative free lotNumber: [id number] expiry: 08/06/2014 Mfg: Afluria Given Left Deltoid 197 CVX created date: 11/28/2013 consent date: 11/27/2013 administer ed date: 11/27/2013 Influenza completed Influenza, high-dose, split virus, quadrivalent, injectable, preservative free lotNumber: [id number] expiry: 05/06/2013 Mfg: Novartis Given 0.5 ml Right Deltoid intramuscularly 197 CVX created date: 07/06/2013 consent date: 10/31/2012 administer ed date: 10/31/2012 Educated by Katherin on 10/31/2012 Pre-vaccine temp is 98.6 tympanic Influenza completed Influenza, high-dose, split virus, quadrivalent, injectable, preservative free lotNumber: [id number] Given Left Deltoid 197 CVX created date: 07/06/2013 consent date: 01/22/2012 administer ed date: 01/22/2012 Educated by Zuleyma Weeks on 01/22/2012 Influenza cancelled Influenza, high-dose, split virus, quadrivalent, injectable, preservative free 197 CVX created date: 07/06/2013 consent date: 11/23/2011 Educated by Jesenia Malin on 11/17/2011 Hepatitis B cancelled hepatitis B vaccine, adult dosage 43 CVX created date: 07/06/2013 consent date: 11/23/2011 Educated by Jesenia Malin on 11/17/2011 Pneumovax Dose 1 cancelled created date: 07/06/2013 consent date: 11/23/2011 Educated by Jesenia Malin on 11/17/2011 TB 1 Step Mantoux (PPD) completed tuberculin skin test; unspecified formulation lotNumber: [id number] Given Left Forearm 98 CVX created date: 07/06/2013 consent date: 05/19/2012 administer ed date: 05/19/2012 Educated by Ya Juarez LPN on 05/19/2012 EXP 11/20 Tetanus cancelled Td(adult) unspecified formulation 139 CVX created date: 07/06/2013 consent date: 11/23/2011 Educated by Jesenia Malin on 11/17/2011 TB 1 Step Mantoux (PPD) new created date: 09/26/2015 consent date: 09/25/2015 TB 1 Step Mantoux (PPD) completed lotNumber: [id number] expiry: 02/29/2016 Mfg: Tuberculin Given 0.1 ml Right Forearm intradermally created date: 07/09/2014 consent date: 07/08/2014 administer ed date: 07/09/2014 TB 1 Step Mantoux (PPD) completed lotNumber: [id number] expiry: 03/08/2015 Mfg: [employer] Given 0.1 ml Right Forearm intradermally created date: 07/12/2013 consent date: 07/12/2013 administer ed date: 07/12/2013 Educated by Pmradha on 07/12/2013 Mental Status Section Date Assessment Total Score Description 09/07/2016 BIMS 15 cognitively int act CAM 0 No delirium ind icated PHQ-9 00 08/11/2016 BIMS 15 cognitively int act CAM 0 No delirium ind icated PHQ-9 00 Problems Problem # Description Date of onset Resolved Date Code CodeSystem Concern Status 1 ANEMIA, UNSPECIFIED 05/05/[address] active 2 ANXIETY DISORDER, UNSPECIFIED 05/05/[address] active 3 PNEUMONIA, UNSPECIFIED ORGANISM 11/25/2014 12/05/[address] completed 4 BIPOLAR DISORDER, UNSPECIFIED 11/17/[address] active 5 HYPOTHYROIDISM, UNSPECIFIED 11/17/[address] active 6 UNSPECIFIED ASTHMA, UNCOMPLICATED 11/17/[address] active Reason for Referral No Reasons for Referral Entered Social History Social History Observation Description Start Date End Date Code Code System Current Smoking Status Tobacco smoking consumption unknown 546579532 SNOMED CT Sex Assigned At Female 1955 14112-8 [facility] Vital Signs Code Code System Vitals Name Values and Units Timing Information 9279-1 [facility] Respiratory Rate Value=18.0 Units=/m in 08/25/2016 8462-4 [facility] Blood Pressure-Diastolic Value=62 Un its=mmHg 08/25/2016 8480-6 [facility] Blood Pressure-Systolic Rqqxk=644 Un its=mmHg 08/25/2016 8310-5 [facility] Body Temperature Value=96.1 Units= F 08/25/2016 8867-4 [facility] Heart rate Value=84.0 Units=/min 17765-6 [facility] Weight Rjggy=505.0 Units=Lbs 04/2016 11024-4 [facility] O2 % dC Oximetry Value=98.0 Units= % 07/03/2015 8302-2 [facility] Height Value=67.0 Units=Inches 04/04/2013
--- OUTSIDE RECORDS SUMMARY | 2024-04-16 15:15 | XMS_ITS | Data Portability ---
Author Organization ISIDRA GEORGETTEMay Franco Address [address] [facility] [place][note 2][place] [address] Care Team Providers Care Radio Aerial Installer Name Role Phone ALEKSANDER VILLANUEVA Primary Care Provider Unavailab le Assessment No assessment recorded. Plan of Treatment Reminders Order Date Submit Date Provider Last Modified By Organization Details Last Modified Time Details Appointments ACUTE 15 2024 02:30P M JESSICA Allen Not available Not available Not available ANY 15 2024 11:00A M JESSICA Allen Not available Not available Not available Lab urinalysi s, complete [address] [facility], [address] [place] [address], [id number], 03/27/2024 12:07:42 culture, urine [address] [facility], [address] [place] [address], [id number], 03/27/2024 12:07:42 hepatic function panel, serum [address] [facility], [address] [place] [address], [id number], 03/27/2024 12:07:41 BMP, serum or plasma [address] [facility], [address] [place] [address], [id number], 03/27/2024 12:07:41 CBC w/ auto diff [address] [facility], [address] [place] [address], [id number], 03/27/2024 12:07:41 lipid panel, serum [address] [facility], [address] [place] [address], [id number], 03/27/2024 12:07:41 TSH + free T4, serum [address] [facility], [address] [place] [address], [id number], 03/27/2024 12:07:41 urinalysi s, complete [address] [facility], [address] [place] [address], [id number], 06/30/2023 11:15:22 culture, urine [address] [facility], [address] [place] [address], [id number], 06/30/2023 11:15:22 hepatic function panel, serum [address] [facility], [address] [place] [address], [id number], 06/15/2023 17:22:48 BMP, serum or plasma [address] [facility], [address] [place] [address], [id number], 06/15/2023 17:22:12 CBC w/ auto diff [address] [facility], [address] [place] [address], [id number], 06/15/2023 17:24:07 lipid panel, serum [address] [facility], [address] [place] [address], [id number], 06/15/2023 17:24:36 TSH + free T4, serum [address] [facility], [address], [place], [address], 06/15/2023 17:23:09 Referral None recorded. Procedures None recorded. Surgeries None recorded. Imaging DEXA [address] (Imaging), [address], [place], [address], 03/21/2024 16:18:19 Medication Orders nitrofura ntoin monohydra te/macroc rystals 100 mg capsule 2023 024 [email or web address] [facility] #[id number], [address], [place], [place], [id number], 01/24/2024 12:10:08 Restasis 0.05 % eye drops in a dropperet te 2023 024 JEFF [facility] #[id number], [address], [place], [place], [phone], 05/17/2023 12:59:04 Patient TargetsNo targets recorded. Patient Instructions Encounter Date Encounter Id Patient Instructions Last Modified By Organization Details Last Modified Time 01/24/2024 [id number] A healthy lifestyle: care instructions [email or web address] Not available 01/24/2024 12:11:43 Reason for Referral None Reported. Results Created Date Observation Date Name Description Value Unit Range Abnormal Flag Note LastModifiedBy Organization Detail LastModifiedTime 03/23/1903/23/2024 SARS- CoV+S ARS-C oV-2 (COVI D-19) Ag [Pres ence] in Respi rator y syste m speci men by Rapid immun oassa y influenza A Ag, POC Negati ve text: negati ve Influ dmitri A Ag, POC Negat juan miguel Negat juan miguel [facility] Not Available Not Available 04/09/2024 10:56:32 03/23/19 25 03/23/2024 SARS- CoV+S ARS-C oV-2 (COVI D-19) Ag [Pres ence] in Respi rator y syste m speci men by Rapid immun oassa y influenza B Ag, POC Negati ve text: negati ve Influ dmitri B Ag, POC Negat juan miguel Negat juan miguel [facility] Not Available Not Available 04/09/2024 10:56:32 03/23/19 25 03/23/2024 SARS- CoV+S ARS-C oV-2 (COVI D-19) Ag [Pres ence] in Respi rator y syste m speci men by Rapid immun oassa y covid-19 Ag POC Presum ptive Negati ve text: presum ptive negati ve, invali d COVID -19 Ag POC Presu mptiv e Negat juan miguel Presu mptiv e Negat juan miguel, Inval id [facility] EDW Not Available Not Available 04/09/2024 10:56:32 03/23/19 25 03/23/2024 SARS- CoV+S ARS-C oV-2 (COVI D-19) Ag [Pres ence] in Respi rator y syste m speci men by Rapid immun oassa y interpretati on and review of laboratory results Normal Not Available Not Available 04/2024 10:56:32 07/26/19 24 07/26/2023 XR, hip + pelvi s, unila teral No observ ation record ed. [address], [address], 07/27/2023 22:59:19 07/27/19 24 07/26/2023 CT, hip + pelvi s, w/o contr ast No observ ation record ed. [address], [address], 07/27/2023 23:00:38 10/31/19 24 10/28/2023 MAMMO , scree barbara, digit al, bilat eral No observ ation record ed. [address], [address], 01/24/2024 11:55:08 02/08/19 25 02/09/2024 imagi ng inter preta tion No observ ation record ed. [email or web address] [facility] [address], [place], [address], 02/09/2024 17:06:32 Result Notes None recorded. Problems Name Problem SNOMED Code Status Onset Date Resolution Date Notes Provider Name and Address Organization Details Recorded Time Fracture of pelvis 22555813 Active 2023 JESSICA Allen Attn: Adriel schaefer,[address] [place], [address], [place] - [facility] 4 11:59:01 Long-term drug therapy Active 2023 JESSICA Allen Attn: Adriel schaefer,[address] [place], [address], [place] [facility] 4 11:59:02 Hyperlipidemia 56605943 Active 2023 JESSICA Allen Attn: Adriel schaefer,[address] [place], [address], [place] [facility] 4 11:59:04 Mood disorder 01202090 Active 2023 JESSICA Allen Attn: Adriel schaefer,[address] [place], [address], [place] [facility] 4 11:59:05 Lower urinary tract symptoms 299048297 Active 2023 JESSICA Allen Attn: Adriel schaefer,[address] [place], [address], [place] [facility] 4 11:59:07 Asthma 262027511 Active 2023 JESSICA Allen Attn: Adriel schaefer,[address] [place], [address], [place] [facility] 4 11:59:10 Hypothyroidism 15602631 Active 2023 JESSICA Allen Attn: Adriel schaefer,[address] [place], [address], [place] - [facility] 4 11:59:12 Body mass index 25-29 - overweight 060809805 Active 2023 JESSICA Allen Attn: Adriel schaefer,[address] [facility], [place], [address], [facility] - [facility] 4 11:59:32 Overweight 561659517 Active 2023 JESSICA Allen Attn: Adriel schaefer,[address] [facility], [place], [address], [facility] - [facility] 4 11:59:33 Problem Notes None recorded. Procedures Surgical History Date Name Laterality Status Provider Name and Address Organization Details Recorded Time Joint Replacement completed Brian Rudolph [place] [facility] 05/17/2023 13:17:42 ligation of bilateral fallopian tubes completed Brian Rudolph [place] [facility] 05/17/2023 13:18:14 Imaging Results Imaging Date Name Status LastModified by Organization Details LastModified Time 07/26/2023 XR, hip + pelvis, unilateral completed [address], [address], 07/27/2023 22:59:19 07/26/2023 CT, hip + pelvis, w/o contrast completed [address], [address], 07/27/2023 23:00:38 10/28/2023 MAMMO, screening, digital, bilateral completed [address], [address], 01/24/2024 11:55:08 02/09/2024 imaging interpretation completed [address], [address], 02/09/2024 17:06:32 Procedure Notes None recorded. Medical Equipment None Reported. Allergies Allergen ID Allergen Name Allergen Category Reaction Reaction Severity Criticality Documentation Date Start Date Code Code System Note Provider Name and Address Organization Details Recorded Time 930135 Product containin g penicilli n (product) medicatio n Not available Not available Not available 05/17/2023 53115 8001 SNOMED Not Available Not Available Not Available 655930 Bactrim medicatio n Not available Not available Not available 05/17/2023 73752 9 RxNorm Not Available Not Available Not Available 713323 Cipro medicatio n Not available Not available Not available 07/05/2023 55238 3 RxNorm Not Available Not Available Not Available Medications Name Sig Start Date Stop Date Status Note LastModified by Organization Details LastModified Time benztropi ne 0.5 mg tablet TAKE 1 TABLET BY MOUTH EVERY DAY active Not Available Not Available No t Available ofloxacin 0.3 % eye drops active Not Available Not Available Not Available nystatin 100,000 unit/gram topical ointment 01/23 completed Not Available Not Available Not Available prednison e 20 mg tablet 05/16 completed Not Available Not Available Not Available quetiapin e 200 mg tablet active pt has stopped this on her own Not Available Not Available Not Available clonazepa m 1 mg tablet TAKE 1 TABLET BY MOUTH TWICE A DAY active Not Available Not Available No t Available ciproflox acin 500 mg tablet Take 1 tablet every 12 hours by oral route, for UTI. 01/23 completed Not Available Not Available Not Available risperido ne 2 mg tablet active pt has stopped this on her own Not Available Not Available Not Available citalopra m 20 mg tablet active Not Available Not Available Not Available levothyro xine 50 mcg tablet one tab po daily active Not Available Not Available No t Available cephalexi n 500 mg capsule 05/16 completed Not Available Not Available Not Available triamcino lone acetonide 0.1 % topical ointment 05/16 completed Not Available Not Available Not Available albuterol sulfate HFA 90 mcg/actua tion aerosol inhaler active Not Available Not Available Not Available cyclospor ine 0.05 % eye drops in a dropperet te INSTILL 1 DROP INTO AFFECTED EYE(S) BY OPHTHALM IC ROUTE EVERY 12 HOURS active Not Available Not Available No t Available nitrofura ntoin monohydra te/macroc rystals 100 mg capsule Take 1 capsule every 12 hours by oral route. 01/23 completed Not Available Not Available Not Available Advair HFA 115 mcg-21 mcg/actua tion aerosol inhaler active Not Available Not Available Not Available quetiapin e 50 mg tablet taken at Noon active Not Available Not Available No t Available Paxlovid 300 mg (150 mg x 2)-100 mg tablets in a dose pack TAKE 2 TABLETS (NIRMATR SALINA) AND TAKE 1 TABLET (RITONAV IR) BY MOUTH TWICE A DAY FOR 5 DAYS 05/16 completed Not Available Not Available Not Available Vitals Date Recorded Body height Respiratory rate Body mass index (BMI) Body weight Oxygen saturation Oxygen saturation in Arterial blood by Pulse oximetry Heart rate Systolic blood pressure Diastolic blood pressure Provider Name and Address Organization Details Last Updated DateTime 4 168.28 cm 18 /min 28.8 kg/m2 55898.6 3 g 97 % 97 % 60 /min 126 mm[Hg] 82 mm[Hg] Brian Rudolph MA [facility] 4 11:34:44 Date Recorded Body height Oxygen saturation Oxygen saturation in Arterial blood by Pulse oximetry Heart rate Body mass index (BMI) Body weight Respiratory rate Systolic blood pressure Diastolic blood pressure Provider Name and Address Organization Details Last Updated DateTime 4 168.28 cm 97 % 97 % 76 /min 29.2 kg/m2 60956.8 1 g 18 /min 128 mm[Hg] 80 mm[Hg] Brian Rudolph MA [facility] 4 11:52:04 Date Recorded Systolic blood pressure Diastolic blood pressure Provider Name and Address Organization Details Last Updated DateTime 01/24/2024 120 mm[Hg] 80 mm[Hg] JESSICA Allen Attn: Accounting,[address] [place], [address], [facility] 01/24/2024 12:09:23 Social History Question Answer Notes LastModified by Organizat ion Details LastModified Time Tobacco Smoking Status Never Smoker Brian Rudolph MA null, [facility] 01/24/2024 11:49:21 Do You Have An Advance Directive? Yes Information not available 01/24/2024 What Is Your Level Of Alcohol Consumption? None Information not available 01/24/2024 Are You Blind Or Do You Have Difficulty Seeing? No Information not available 01/24/2024 What Is Your Level Of Caffeine Consumption? Occasional Some Coffee Information not available 01/24/2024 In The 14 Days Before Symptom Onset, Have You Had Close Contact With A Laboratory-confir med COVID-19 While That Case Was Ill? No Information not available 05/17/2023 In The 14 Days Before Symptom Onset, Have You Had Close Contact With A Person Who Is Under Investigation For COVID-19 While That Person Was Ill? No Information not available 05/17/2023 Have You Been To An Area Known To Be High Risk For COVID-19? No Information not available 05/17/2023 Are You Deaf Or Do You Have Serious Difficulty Hearing? No Information not available 01/24/2024 What Type Of Diet Are You Following? REGULAR Information not available 05/17/2023 Are There Any Guns Present In Your Home? No Information not available 05/17/2023 What Was The Date Of Your Most Recent Tobacco Screening? 01/24/2024 Information not available 01/24/2024 Do You Use Your Seat Belt Or Car Seat Routinely? Yes Information not available 05/17/2023 Do You Have Smoke And Carbon Monoxide Detectors In Your Home? Yes Information not available 05/17/2023 Do You Use Any Illicit Or Recreational Drugs? No Information not available 01/24/2024 Do You Use Sunscreen Routinely? Yes Information not available 05/17/2023 Has Tobacco Cessation Counseling Been Provided? No Information not available 01/24/2024 Do You Or Have You Ever Used Any Other Forms Of Tobacco Or Nicotine? No Information not available 01/24/2024 Sex: Female Functional Status Question Answer Note LastModified by Organization D etails LastModified Time Are you able to care for yourself? Yes Information n ot available 01/24/2024 Mental Status None recorded. Family History Relationship Description Onset Age of this Age Resolved Age Notes LastModified by Organization Details LastModified Time Father Asthma [email or web address] Not available 05/17/2023 13:15:49 Mother Disorder of thyroid gland tcarterma Not available 2023 13:15:54 Medical History Condition Response Coronary Artery Disease Y Other N High Blood Pressure N Atrial Fibrillation N Kidney or Bladder Problems N Thyroid Problems Y GI Problems N Depression Y COPD Y Blood Clots N Skin Problems N Anemia Y Heart Attack ([place]) N Anxiety Disorder Y Diabetes N Muscle, Joint, or Bone Problems N Seizures/Epilepsy N Acid Reflux (GERD) N Cancer N Stroke N Asthma Y Allergies N High Cholesterol N Hepatitis N Liver Disease N Headaches N Heart Failure N Osteoporosis N Gynecological History Statement/Question Response Menses Monthly N Current Control Method Menopause Obstetrics History GPAL:G 0 P 0 0 0 0 Immunizations Vaccine Type Date Status Note Provider Nam e and Address Organization Details Recorded Time Influenza, adjuvanted, quadrivalent, PF 01/20/2022 completed ARM[place] [facility] 01/24/2024 11:49:45 COVID-19, mRNA, LNP-S, PF, 30 mcg/0.3 mL dose 03/16/2020 completed Brian Rudolph [place], [place] [facility] 01/24/2024 11:49:45 COVID-19, mRNA, LNP-S, PF, 30 mcg/0.3 mL dose 04/06/2020 completed Brian Rud[place] [facility] 01/24/2024 11:49:45 COVID-19, mRNA, LNP-S, PF, vashti-sucrose, 30 mcg/0.3 mL 12/14/2022 [place] ARM[place] [facility] 01/24/2024 11:49:45 influenza, unspecified formulation 05/10/2011 ARM[place] [facility] 01/24/2024 11:49:45 Tdap 09/21/2012 ARM[place] [facility] 01/24/2024 11:49:45 Tdap 09/22/2020 ARM[place] [facility] 01/24/2024 11:49:45 DTP 09/21/2012 ARMANDO [place] [facility] 01/24/2024 11:49:45 pneumococcal, unspecified formulation 05/10/2011 completed [place] [facility] 01/24/2024 11:49:45 Influenza, split virus, quadrivalent, PF 11/21/2020 [place] ARM[place] [facility] 01/24/2024 11:49:45 Past Encounters Encounter ID Performer Location Encounter Start Date Encounter Closed Date Diagnosis/Indication Diagnosis SNOMED-CT Code Diagnosis ICD10 Code Diagnosis Note [id number] JESSICA Allen [facility] [employer] [address] [place] [address] 05/17/2023 11:19:47 05/17/2023 12:49:10 Hypothyroidism 01450004 E03.9 Stable on levothyrox ine 50mcg daily and due for updated TFT panel. Asthma 828895629 J45.90 9 pt is currently stable with asthma on advair hfa 115mcg /21mcg Cholesterol screening 27 3776563 Z13.220 fasting lipids due. Long-term drug therapy 804407811 Z79.899 routine bmp, LFT, and CBC due. Dry eyes 783015421 H04.1 23 Rx trial of restasis eye drops as directed. she should also see her eye doctor. Lower urin shadi tract symptoms 649133383 R39.9 pt c/o of urinary frequency and some mild dysuria. start macrobid 100mg bid course x 7 days and then check UA w/cx after. Mood disorder 81760820 F 38 exact DSM IV diagnosis is not known to this provider, but patient is on quetiapine , citalopram , and risperidon e from psychiatry . [id number] JESSICA Allen [facility] [employer] [address] [place] [address] 01/24/2024 11:44:31 01/24/2024 12:18:41 Hypothyroidism 46927614 E03.9 Stable on levothyrox ine 50mcg daily and due for updated TFT panel. Asthma 494749821 J45.90 9 pt is currently stable with asthma on advair hfa 115mcg /21mcg, asthma is stable at this time Lower urin shadi tract symptoms 637219065 R39.9 pt c/o of urinary frequency and frequent UTIs. We will check a routine culture with urine Mood disorder 48129744 F 38 exact DSM IV diagnosis is not known to this provider, but patient is on quetiapine , citalopram , and risperidon e from psychiatry . Long-term drug therapy 328255297 Z79.899 routine bmp, LFT, and CBC due. Fracture of pelvis 690[address] 009 S32.9XXA History of fracture of pelvis this year. We will send her for a DEXA scan that is due Hyperlipidemia 24037159 E78.5 Fasting lipid panel is due Body mass index 25-29 - overweight 210838585 Z68.29 bmi 29.2 Overweight 002442938 E66 .3 discussed healthy diet, exercise, controllin g carbohydra mariam and added sugars in the diet Health Concerns Section Related Observation LastModified by Organization Detai ls LastModified Time None Recorded Concern Status LastModified by Organization Details LastModified Time None Recorded Advance Directives Directive Y: Payers Encounter Date Sequence Insurance Name Policy Number Policy Oliveira Covered Member ID Oliveira Member ID Guarantor Name 05/17/2023 2 [place] WHEN [place]ARE OR MEDICARE REPLACEMENT PRIMARY) Dakotah Jernigan [id number] Dakotah Jernigan 05/17/2023 1 [place] Dakotah Jernigan [id number] Dakotah Jernigan 01/24/2024 2 [place] OR MEDICARE REPLACEMENT PRIMARY) Dakotah Jernigan [id number] Dakotah Jernigan 01/24/2024 1 [place] Dakotah Jernigan [id number] Dakotah Jernigan Notes Date Note Type Note Provider Name and Address Organization Details Recorded Time 05/17/19 24 text/htm l Asthma F/UReported bypatient.Severity:able to sleep during episode; does not interfere with daily activities Onset/Timing:chronic Context:same Modifying Factors:allergies Associated Symptoms:no fever; no cough; no shortness of breathLower Urinary Tract Symptoms (LUTS)Reported bypatient.Location:bladder Quality:pressure Severity:painless Onset/Timing:< 1 week Duration:4-10 times a day Context:denies excessive fluid intake; history of bladder infections; history of urinary tract infection; history of kidney stones; seen Urologist Aggravating Factors:intercourse Associated Symptoms:frequency;dysuriaThyroi dReported bypatient.Quality:improving Severity:mild Duration:constant Onset/Timing:better Context:history of hypothyroidism Modifying Factors:medication Exerciseno exercise Associated Symptoms:no hoarseness; no difficulty swallowing; no neck masses;dry eyes Pt c/o dry eyes currently. has been for some weeks. she thinks maybe weather related. JESSICA Allen Attn: Accounting, [address] [facility], [place], [address], [facility] 06/05/2023 15:26:41 01/24/20 24 text/htm l Asthma F/UReported bypatient.Severity:able to sleep during episode; does not interfere with daily activities Onset/Timing:chronic Context:same Modifying Factors:allergies Associated Symptoms:no fever; no cough; no shortness of breathHyperlipidemiaReported bypatient.Notes:Patient has a history of hyperlipidemia but is not taking any medication.Lower Urinary Tract Symptoms (LUTS)Reported bypatient.Location:bladder Quality:pressure Severity:painless Onset/Timing:< 1 week Duration:4-10 times a day Context:denies excessive fluid intake; history of bladder infections; history of urinary tract infection; history of kidney stones; seen Urologist Aggravating Factors:intercourse Associated Symptoms:frequency;dysuriaThyroi dReported bypatient.Quality:improving Severity:mild Duration:constant Onset/Timing:better Context:history of hypothyroidism Modifying Factors:medication Exerciseno exercise Associated Symptoms:no hoarseness; no difficulty swallowing; no neck masses;dry eyes Patient has a remote history of fracture of her pelvis and would like to have a screening DEXA scan JESSICA Allen Attn: Accounting, [address] [facility], [place], [address], [facility] 02/07/2024 12:21:58 OBGyn Episode No OBEpisode recorded.
--- OUTSIDE RECORDS SUMMARY | 2024-04-16 15:15 | XMS_ITS ---
Author Organization [facility] Address [address] [place] [address] Care Team Providers Care Traffic Monitor Specialist Name Role Phone Jewel Gonzales Primary Care Provider [facility] Unav ailable Unavailable Allergies Allergen (clinical drug ingredient) Drug/Non Drug Allergy documented on EMR Reaction Allergy Type Onset Date Status sulfamethoxazole / trimethoprim Bactrim Unknown Drug Allergy Active codeine Codeine Sulfate Unknown Drug Allergy A ctive penicillin G Penicillin G Potassium Unknown Drug Allergy Active Sulfur Unknown Drug Allergy Active REASON FOR VISIT Psych F/U Medications Medication SIG (Take, Route, Frequency, Duration) Notes Start Date End Date Status Levothyroxine Sodium 50 MCG 1 tablet in the morning on an empty stomach Orally Once a day doseage uncertain Active QUEtiapine Fumarate 300 MG 1 tablet at bedtime Orally Once a day for 30 day(s) 03/24/2021 Not-Taking QUEtiapine Fumarate 50 MG 1 tablet Orally Once a day for 30 days Active Benztropine Mesylate 0.5 MG 1 tablet at bedtime Orally Once a day for 30 days Active Citalopram Hydrobromide 20 MG 1 tablet Orally Once a day for 30 days Active clonazePAM 1 MG 1 tablet Orally twice a day for 30 days F41.9 12/27/2023 Active RisperDAL 2 MG 1 tablet Orally [...] you a former smoker Vital Signs Weight 176 lbs 12/27/2023 Blood pressure systolic 118 mm Hg 12/27/19 24 Blood pressure diastolic 78 mm Hg 024 Heart Rate 72 /min 12/27/2023 Oximetry 94 % 12/27/2023 Respiratory Rate 16 /min 12/27/2023 Encounters Encounter Location Date Provider Diagnosis [address] [place] [address] 12/27/2023 Jewel Gonzales Anxiety F41.9 and Bipolar 1 disorder F31.9 Assessments Encounter Date Diagnosis (ICD Code) Assessment Notes Treatment Notes Treatment Clinical Notes Section Notes 12/27/2023 Anxiety (ICD-10 - F41.9) 12/27/2023 Bipolar 1 disorder (ICD-10 - F31.9) risk [...] twic e a day for 30 days 12/27/2023 F41.9 RisperDAL 2 MG 1 tablet Orally Once a day for 30 days SEROquel 200 MG 1 tablet at bedtime Orally Once a day for 30 days Treatment Notes Assessment Notes Bipolar 1 disorder risk & benefits disc ussed in detail. Continue current treatment. No involuntary movements reported. 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 W as hospitalized Y es , Yes , No , No , No , No , No. Pt reports doing better. Sheisdone with walker and can walk good without it. Had a fall and broke pelvis and was in [facility] for almost 2 months. Now she is back in her aprtment. Still finished physical therapy. Reports doing fair. Will spend thanksgiving with sister. Mood has been stable. Said her medications are working fine. Denies side effects. Denies halluciantion or delusion. Denies manic or hypo manic symptoms. Denies anger issues. Denies alcohol or illicit drugs. She has been with boyfriend,Ty off & on since 23 years. 95 year old Brother in law( WW 2 ) in April 2021 after he was in [facility] due to dementia. Her 87 year old sister lives alone. MSE- - Alert,Ox4,mood is pleasant. Affect is appropriate to mood. Denies side effects. Denies hallucination or delusion. Denies manic or hypomanic symptoms. Insight & judgement alright. D epression Screening: PHQ-9 L ittle interest or pleasure in doing things N ot at all, F eeling down, depressed, or hopeless N ot at all, T rouble falling or staying asleep, or sleeping too much N ot at all, F eeling tired or having little energy N ot at all, P oor appetite or overeating N ot at all, F eeling bad about yourself or that you are a failure, or have let yourself or your family down N ot at all, T rouble concentrating on things, such as reading the newspaper or watching television N ot at all, M oving or speaking so slowly that other people could have noticed; or the opposite, being so fidgety or restless that you have been moving around a lot more than usual N ot at all, T houghts that you would be better off or of hurting yourself in some way N ot at all, T otal Score 0 . S creening: [place] Suicide Severity Rating Scale (LF) D o you want to initiate with S creener form, 1 . Wish to be : Have you wished you were or wished you could go to sleep and not wake up? N o, 2 . Suicidal Thoughts: Have you actually had any thoughts of killing yourself? N o, 6 . Suicide Behaviour: Have you ever done anything,started to do anything, or prepared to end your life? N o, I nterpretation: L ow Risk. * Medical History: * Surgical History: B roken ankle surg and Rehab Sep 2018UTI/Dehydration, hospitalized 2014Pnuemonia 2014Bilateral hip replacements 2000Tubal Ligation 1997 * Hospitalization/Major Diagno stic Procedure: E R visits for blood clots, kidney stones,[facility]thma attacks [facility] [...] do not use T obacco Use: S elsy Reviewed with Patient.? T obacco Use: D ont use, Tobacco Use/Smoking A re you a f ormer smoker. M iscellaneous: M ethod of learning P referred method of learning: R eading,Discussion,Demonstration,Hearing. * Medications: T akingLevothyroxine Sodium 50 MCG [...] tablet at bedtime Orally Once a day Medication List reviewed and reconciled with the patientNot- Taking QUEtiapine Fumarate 300 MG Tablet 1 tablet at bedtime Orally Once a day Medication List reviewed and reconciled with the patient * Allergies: P enicillin G PotassiumSulfurBactrimCodeine Sulfateno[Allergies Verified] Objective: * Vitals: I nitials: ws, Wt:176, BP:118/78, HR:72, Oxygen sat %:94, RR:16, Pain scale:0. Assessment: * Assessment: 1. A nxiety - F41.9 2 . B ipolar 1 disorder - F31.9 Plan: * Treatment: * Procedure Codes: G 0467 [facility] VISIT ESTABLISHED PATIENT * Follow Up: 3 Months * * RETARDER OPERATOR Sign off status: Completed true * Provider: Padilla Gonzales Date: 02/25/2023 Generated for Tony bess/Salvatore/eTemma on: 0 04/16/2024 03:15 PM CDT History and Physical Notes * HPI (History of Present Illness) Category Sub-Category Detail Notes Category Not es Interim History Was hospitalized Yes , Yes , No , No , No , No , No Pt reports doing better. Sheisdone with walker and can walk good without it. Had a fall and broke pelvis and was in [facility] for almost 2 months. Now she is back in her aprtment. Still finished physical therapy. Reports doing fair. Will spend thanksgiving with sister. Mood has been stable. Said her medications are working fine. Denies side effects. Denies halluciantion or delusion. Denies manic or hypo manic symptoms. Denies anger issues. Denies alcohol or illicit drugs. She has been with boyfriend,Ty off & on since 23 years. 95 year old Brother in law( WW 2 ) in April 2021 after he was in [facility] due to dementia. Her 87 year old sister lives alone. MSE- - Alert,Ox4,mood is pleasant. Affect is appropriate to mood. Denies side effects. Denies hallucination or delusion. Denies manic or hypomanic symptoms. Insight & judgement alright. Emergency room visit Yes , Yes , Yes , N o , No , Yes Depression Screening PHQ-9 Little inte rest or pleasure in doing things: Not at all Feeling down, depressed, or hopeless: No t at all Trouble falling or staying asleep, or sl eeping too much: Not at all Feeling tired or having little energy: N ot at all Poor appetite or overeating: Not at all Feeling bad about yourself o r that [...] some way: Not at all Total Score: 0 Screening [place] Suicide Sev erity Rating Scale (LF) Do [...]
--- OUTSIDE RECORDS SUMMARY | 2024-04-16 15:15 | XMS_ITS ---
Author Organization [facility] Address [address] [place] [address] Care Team Providers Care Singeing Torch Operator Name Role Phone Jewel Gonzales Primary Care Provider [facility] Unav ailable Unavailable Allergies Allergen (clinical drug ingredient) Drug/Non Drug Allergy documented on EMR Reaction Allergy Type Onset Date Status sulfamethoxazole / trimethoprim Bactrim Unknown Drug Allergy Active codeine Codeine Sulfate Unknown Drug Allergy A ctive penicillin G Penicillin G Potassium Unknown Drug Allergy Active Sulfur Unknown Drug Allergy Active REASON FOR VISIT 1 Month Psych F/U & Med Refill, CSSR Interpretation and Follow UP Plan, BMI over 25 non smoker Medications Medication SIG (Take, Route, Frequency, Duration) Notes Start Date End Date Status RisperDAL 2 MG 1 tablet Orally Once a day for 30 days Active clonazePAM 1 MG 1 tablet Orally twice a day for 30 days F41.9 10/04/2023 Active SEROquel 200 MG 1 tablet at bedtime Orally Once a day for 30 days Active QUEtiapine Fumarate 300 MG 1 tablet at bedtime Orally Once a day for 30 day(s) 03/24/2021 Active Levothyroxine Sodium 50 MCG 1 tablet in the morning on an empty stomach Orally Once a day doseage uncertain Active Benztropine Mesylate 0.5 MG 1 tablet at bedtime Orally Once a day for 30 days Active QUEtiapine Fumarate 50 MG 1 tablet Orally [...] you a former smoker Vital Signs Weight 176.4 lbs 10/04/2023 Height 67 in 10/04/2023 BMI 27.63 kg/m2 10/04/2023 Blood pressure systolic 132 mm Hg 10/04/19 Blood pressure diastolic 86 mm Hg 024 Heart Rate 85 /min 10/04/2023 Oximetry 96 % 10/04/2023 Respiratory Rate 16 /min 10/04/2023 Encounters Encounter Location Date Provider Diagnosis [address] [address] 10/04/2023 Jewel Gonzales Nutritional counseli ng Z71.3 ; Anxiety F41.9 and Bipolar 1 disorder F31.9 Assessments Encounter Date Diagnosis (ICD Code) Assessment Notes Treatment Notes Treatment Clinical Notes Section Notes 10/04/2023 Nutritional counseling (ICD-10 - Z71.3) 10/04/2023 Anxiety (ICD-10 - F41.9) 10/04/2023 Bipolar 1 disorder (ICD-10 - F31.9) risk & benefits discussed in detail. Continue current treatment Plan Of Treatment Medication Medication Name Sig Start Date Stop Date Notes RisperDAL 2 MG 1 tablet Orally Once a day for 30 days clonazePAM 1 MG 1 tablet Orally twic e a day for 30 days 10/04/2023 F41.9 SEROquel 200 MG 1 tablet at bedtime Orally Once a day for 30 days Benztropine Mesylate 0.5 MG 1 tablet at bedtime Orally Once a day for 30 days QUEtiapine Fumarate 50 MG 1 tablet Orall y Once a day for 30 days Citalopram Hydrobromide 20 MG 1 tablet O rally Once a day for 30 days Treatment Notes Assessment Notes Bipolar 1 disorder risk & benefits disc ussed in detail. 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 W as hospitalized Y es , No , No , No , No , No. Pt was seen first and then also met with her niece. Had a fall and broke pelvis. She was in [facility] home. for almost 2 months. Now she is back in her aprtment. Still has physical therapy. Reports doing alright. Pt recently got another order of protection againg her boyfriend of 23 years. But she is trying to stop it. Mood has been stable. Said her medications are working fine. Denies side effects. Denies halluciantion or delusion. Denies manic or hypo manic symptoms. Denies anger issues. Denies alcohol or illicit drugs. H er brother in law . Her 87 year old sister is doing fine. Reports taking medicines as prescribed. She has been with boyfriend,Ty off & on since 23 years. Pt denies any alcohol or illicit drug for long time. 95 year old Brother in law( WW 2 ) in April 2021 after he was in [facility] due to dementia. Her 85 year old sister lives alone. MSE- - [...] T otal Score 0 . S creening: [place] Suicide Severity Rating Scale (LF) D o [...] Up Plan: CSSRS Interpretation and Follow Up Plan. CSSRS Interpretation and Follow Up Plan C SSRS Screen documented using SF Y es, M oderate or High risk requires selection of a follow up plan C SSRS No/Low: intervention not needed at this time. P reventative Health and Wellness follow-up: Action Plans for Clinical Quality Measures: B reast Cancer Screening: D iscussed need for breast cancer screening. Patient declined., H IV Screening:?Discussed need for HIV screening. Patient declined.. . * Medical History: * Surgical History: B roken ankle surg and Rehab Sep 2018UTI/Dehydration, hospitalized 2014Pnuemonia 2014Bilateral hip replacements 1999Tubal Ligation 1997 * Hospitalization/Major Diagno stic Procedure: E R visits for blood clots, kidney stones,asthma attacks [facility] [...] Status E mployment Status:?Unemployed. T obacco Use T obacco Use: Francisco chin Reviewed with Patient. T obacco Use: D ont use, Tobacco Use/Smoking A re you a f ormer smoker. M iscellaneous: M ethod of learning P referred method of learning: D iscussion. * Medications: T akingLevothyroxine Sodium 50 MCG Tablet 1 tablet in the morning on an empty stomach Orally Once a day , Notes to Pharmacist: doseage uncertainQUEtiapine Fumarate 300 MG Tablet 1 tablet at bedtime Orally Once a day SEROquel 200 MG Tablet 1 tablet at [...] day , Notes to Pharmacist: doseage uncertainTaking QUEtiapine Fumarate 300 MG Tablet 1 tablet at bedtime Orally Once a day Taking SEROquel 200 MG Tablet 1 tablet at [...] Tablet 1 tablet Orally Once a day * Allergies: P enicillin G PotassiumSulfurBactrimCodeine Sulfateno[Allergies Verified] Objective: * Vitals: I nitials: sw, Wt:176.4, Ht: 67, BMI:27.63, BP:132/86, HR:85, Oxygen sat %:96, RR:16, Pain scale:0. Assessment: * Assessment: 1. N utritional counseling - Z71.3 (Primary) 2 . A nxiety - F41.9 ? 3 . B ipolar 1 disorder - F31.9 Plan: * Treatment: * Recommended Wellness and Pre vention Guidelines: * Francisco Beauchamp ast Done N ext Due A ction Taken N ONCOMPLIANT B reast cancer screening - 0 10/04/2023 - N ONCOMPLIANT C olorectal cancer screening - 0 10/04/2023 - * Procedure Codes: 3 008F BODY MASS INDEX [id number] MEDICAL NUTRITION, INDIV, [id number] TOBACCO [id number] [facility] VISIT ESTABLISHED PATIENT * Preventive Medicine: Counseling: C are goal follow-up plan: B MD management provided Suma es, Padilla echeverria Normal BMI Follow-up L ifestyle education regarding diet. * Follow Up: 3 Months * * Sign off status: Completed true * Provider: Padilla Gonzales Date: 0 10/04/2023 Generated for Tony bess/Salvatore/Gt on: 0 04/16/2024 03:15 PM CDT History and Physical Notes * HPI (History of Present Illness) Category Sub-Category Detail Notes Category Not es Interim History Was hospitalized Yes , No , No , No , No , No Pt was seen first and then also met with her niece. Had a fall and broke pelvis. She was in [facility]. for almost 2 months. Now she is back in her aprtment. Still has physical therapy. Reports doing alright. Pt recently got another order of protection againg her boyfriend of 23 years. But she is trying to stop it. Mood has been stable. Said her medications are working fine. Denies side effects. Denies halluciantion or delusion. Denies manic or hypo manic symptoms. Denies anger issues. Denies alcohol or illicit drugs. Her brother in law . Her 87 year old sister is doing fine. Reports taking medicines as prescribed. She has been with boyfriend,Ty off & on since 23 years. Pt denies any alcohol or illicit drug for long time. 95 year old Brother in law( WW 2 ) in April 2021 after he was in [facility] due to dementia. Her 85 year old sister lives alone. MSE- - Alert,Ox4,mood is pleasant. Affect is appropriate to mood. Denies side effects. Denies hallucination or delusion. Denies manic or hypomanic symptoms. Insight & judgement alright. Emergency room visit Yes , Yes , No , No , Yes Depression [...] Not at all Total Score: 0 Screening [place] Suicide Sev erity Rating Scale (LF) Do [...] end your life?: No Interpretation:: Low Risk Do Not Use CSSRS Interpretation and Follow Up Plan CSSRS Interpretation and Follow Up Plan CSSRS Screen documented using SF: Yes Moderate or High risk requir es selection of a follow up plan: CSSRS No/Low: intervention not needed at this time Preventative Health and Wellness follow-up Action Plans for Clinical Quality Measures: Breast Cancer Screening:: Discussed need for breast cancer screening. Patient declined. . HIV Screening:: Discussed need for HIV s creening. Patient declined.
--- OUTSIDE RECORDS SUMMARY | 2024-04-16 15:16 | XMS_ITS | Patient Health Record ---
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 Name Role Phone Jewel Gonzales Primary Care Provider [phone] [facility] Services Unav ailable Unavailable Allergies Allergen (clinical drug ingredient) Drug/Non Drug Allergy documented on EMR Reaction Allergy Type Onset Date Status sulfamethoxazole / trimethoprim Bactrim Unknown Drug Allergy Active codeine Codeine Sulfate Unknown Drug Allergy A ctive penicillin G Penicillin G Potassium Unknown Drug Allergy Active Sulfur Unknown Drug Allergy Active Reason For Referral No Information Medications Medication SIG (Take, Route, Frequency, Duration) [...] day for 30 days F41.9 03/20/2024 Active Levothyroxine Sodium 50 MCG 1 tablet in the morning on an empty stomach Orally Once a day doseage uncertain Active RisperDAL 2 MG 1 tablet Orally Once a day for 30 days Active QUEtiapine Fumarate 300 MG 1 tablet at bedtime Orally Once a day for 30 day(s) 03/24/2021 Not-Taking SEROquel 200 MG 1 tablet at bedtime Orally Once a day for 30 days Active Immunizations Vaccine Route Administration Date Status Comme nts FLU VAC NO PRSV 4VAL 6 mo+ IM Intramuscular 12/21/2022 Administered Pt [facility]. Social History Tobacco Use: Social History Observation Description Date Details (start date - stop date) Former Smoker NA - NA Sex Assigned At : Social History Observation Description Sex Assigned At Female Dont use, Tobacco Use/Smoking Question Answer Notes Are you a former smoker Problems Problem Type SNOMED Code ICD Code Onset Dates Problem Status W/U Status Risk Notes Problem Anxiety (16332132) Anxiety (F41.9) 11/06/2021 Active confirmed Problem Bipolar 1 disorder (274325851) Bipolar 1 disorder (F31.9) 11/06/2021 Active confirmed Vital Signs Heart Rate 79 /min 03/20/2024 Respiratory Rate 16 /min 03/20/2024 Blood pressure diastolic 82 mm Hg 03/20/2024 Oximetry 97 % 03/20/2024 Height 67 in 03/20/2024 Blood pressure systolic 126 mm Hg 03/20/2024 Weight 181.8 lbs 03/20/2024 BMI 28.47 kg/m2 03/20/2024 Encounters Encounter Location Date Provider Diagnosis [address] [address] 06/14/2023 Arif Habib Anxiety F41.9 and Bipolar [address] disorder F[address] [address] 10/04/2023 Arif Habib Nutritional counseli ng Z71.3 ; Anxiety F41.9 and Bipolar 1 disorder F[address] [address] 12/27/2023 Arif Habib Anxiety F41.9 and Bipolar 1 disorder F31.[address] [address] 03/20/2024 Arif Habib Nutritional counseli ng Z71.3 ; Anxiety F41.9 and Bipolar 1 disorder F31.[address] [address] 08/18/2023 Arif Habib Assessments Encounter Date Diagnosis (ICD Code) Assessment Notes Treatment Notes Treatment Clinical Notes Section Notes 03/20/2024 Nutritional counseling (ICD-10 - Z71.3) 12/27/2023 Anxiety (ICD-10 - F41.9) 10/04/2023 Nutritional counseling (ICD-10 - Z71.3) 06/14/2023 Anxiety (ICD-10 - F41.9) 06/14/2023 Bipolar 1 disorder (ICD-10 - F31.9) risk & benefits discussed in detail. Continue current treatment 03/20/2024 Anxiety (ICD-10 - F41.9) 12/27/2023 Bipolar 1 disorder (ICD-10 - F31.9) risk & benefits discussed in detail. Continue current treatment. No involuntary movements reported. 10/04/2023 Anxiety (ICD-10 - F41.9) 10/04/2023 Bipolar 1 disorder (ICD-10 - F31.9) risk & benefits discussed in detail. Continue current treatment 03/20/2024 Bipolar 1 disorder (ICD-10 - F31.9) risk & benefits discussed in detail. Continue current treatment. No involuntary movements reported. Plan Of Treatment No Information Insurance Providers Payer Name Payer Address Payer Phone Subscriber Number Group Number Insured Name Patient Relationship to Insured Coverage Start Date Coverage End Date MEDICARE PART A [address] [place] [address] [id number] Dakotah Jernigan Self - patient is the insured 5 [employer] Medicare [address] [place] [address] [id number] Dakotah Jernigan Self - patient is the insured 1 1 MEDICAID [address] [facility] [place] [address] [id number] Daoktah Jernigan Self - patient is the insured 0 [facility] Medicare Assure [address] [address] [place] [address] [phone] [id number] Dakotah Jernigan Self - patient is the insured 2 2 Medical (General) History Medical History History ICD Code COPD Surgical History Surgery Date(Month/Year) Broken ankle surg and Rehab Sep 2018 UTI/Dehydration, hospitalized 2014 Pnuemonia 2013 Bilateral hip replacements 1999 Tubal Ligation 1997 Hospitalization History Reason Date(Month/Year) broken pelvic bone [facility] A pril 2021 [facility] for indig[facility] and UTI Sep 2020 ER visits for blood clots, kidney stones ,asthma attacks
[2024-04-16 15:55] LABS: Free T4 Free Thyroxine 0.92 ng/dL (0.78-2.19)
== END 2024-04-16 13:14 | disposition home or self-care (01) ==
LOC: ANHLAB 13:17
PROVIDERS: PCP Physician Assistant; Visit Provider Physician Assistant
DX: E78.5 Hyperlipidemia, unspecified (principal); E03.9 Hypothyroidism, unspecified; R39.9 Unspecified symptoms and signs involving the genitourinary system; Z79.899 Other long term (current) drug therapy
CPT/HCPCS: 36415; 80048; 80061; 80076; 81001; 84439; 84443; 85025; 87086

== ENCOUNTER 2024-04-26 16:03 | Outpatient (CLI) | payer MEDICARE, MEDICAID, SELFPAY ==
--- NOTE | ~2024-04-26 | US_ITS ---
EXAMINATION: US venous doppler LE DATE: 04/26/2024 17:09 INDICATION: Swelling TECHNIQUE: Grayscale ultrasound images without and with compression and Doppler ultrasound images of the bilateral lower extremity veins were obtained. COMPARISON: None. FINDINGS: The visualized portions of right common femoral vein, profunda (deep) femoral vein, femoral vein, pop liteal vein and greater saphenous vein outflow are patent. The visualized portions of left common femoral vein, profunda femoral vein, femoral vein, popliteal v ein and greater saphenous vein outflow are patent. IMPRESSION: 1. No deep venous thrombosis within the bilateral lower extremities, to the level of the popliteal v eins. Reviewed, dictated and finalized at location A. IMPRESSION: 1. No deep venous thrombosis within the bilateral lower extremities, to the le cindy of the popliteal veins.
--- NOTE | ~2024-04-26 | XR_ITS ---
CHEST RADIOGRAPH, PA AND LATERAL CLINICAL HISTORY: chronic obstructive pulm disease . COMPARISON: 02/09/2024 TECHNIQUE: PA and lateral views of the chest. FINDINGS The cardiomediastinal silhouette is unremarkable. Improved aeration of the bilateral lung martins when compared with previous examination dated 02/09/2024 . The lungs are clear. IMPRESSION: No focal infiltrate or effusion. Reviewed, dictated and finalized at location A.
--- OUTSIDE RECORDS SUMMARY | 2024-04-26 16:10 | XMS_ITS | Referral Summary ---
Author Organization [facility] [address] Address [address] [place] [address] Care Team Providers Care Credit Control Manager Name Role Phone Elena Payton Primary Care Pr ovider Encounters Date Type Department Care Team Description 03/23/2024 3:25 PM PHOTOGRAPHIC PROCESS SCREEN MAKER Ancillary Procedure [facility] Imaging at [address] [address] Acute cough 03/23/2024 3:00 PM PHOTOGRAPHIC PROCESS SCREEN MAKER Office Visit [facility] Convenient Care at [address] [address] Lucrecia Jorgensen NP Lower respiratory [...] mask (OptiChamber Ivette Lg Mask) spacer OptiChamber Ievtte [facility] with Large Mask Active albuterol 2.5 mg [...] on file Legal Sex Female 6:39 AM PHOTOGRAPHIC PROCESS SCREEN MAKER Gender Identity Not on file Sexual Orientation Not on file Last Filed Vital Signs Vital Sign Reading Time Taken Comments Blood Pressure 104/71 03/23/2024 3:02 PM PHOTOGRAPHIC PROCESS SCREEN MAKER Pulse 85 03/23/2024 3:02 PM PHOTOGRAPHIC PROCESS SCREEN MAKER Temperature 36.8 C (98.3 F) 03/23/2024 3:02 PM PHOTOGRAPHIC PROCESS SCREEN MAKER Respiratory Rate 20 03/23/2024 3:02 PM PHOTOGRAPHIC PROCESS SCREEN MAKER Oxygen Saturation 95% 03/23/2024 3:02 PM PHOTOGRAPHIC PROCESS SCREEN MAKER Inhaled Oxygen Concentration - - Weight 85.7 kg (189 lb) 03/23/2024 3:02 PM PHOTOGRAPHIC PROCESS SCREEN MAKER Height 170.2 cm (5' 7.01 ) 02/04/2023 9:27 AM CS T Body Mass Index 29.59 02/04/2023 9:27 AM PHOTOGRAPHIC PROCESS SCREEN MAKER Plan of Treatment Not on file Procedures Procedure Name Priority Date/Time Associated Diagnosis Comments POC INFLUENZA A/B, COVID-19 ANTIGEN Routine 03/23/2024 3:36 PM PHOTOGRAPHIC PROCESS SCREEN MAKER Lower respiratory infection (e.g., bronchitis, pneumonia, pneumonitis, pulmonitis) XR CHEST PA LATERAL 2 VIEWS Routine 03/23/2024 3:26 PM PHOTOGRAPHIC PROCESS SCREEN MAKER Acute cough SCREENING MAMMOGRAM BILATERAL W YOSEF Routine 06/22/2016 9:57 AM CDT from Last 3 Months or Most Recently Relevant to Health Maintenance Results * POC Influenza A/B, COVID-19 antigen (03/23/2024 3:36 PM PHOTOGRAPHIC PROCESS SCREEN MAKER) Influenza A Ag, POC Negative Negative [facility] Influenza B Ag, POC Negative Negative [facility] COVID-19 Ag POC Presumptive Negative Presumptive Negative, Invalid [facility] Nasal 03/23/2024 3:36 PM PHOTOGRAPHIC PROCESS SCREEN MAKER us Lucrecia Jorgensen NP POINT OF CARE TEST ORDERABLES Final Result [facility] [address] * XR Chest PA Lateral 2 Views (03/23/2024 3:26 PM PHOTOGRAPHIC PROCESS SCREEN MAKER) Anatomical Region Laterality Modality Body, Chest N/A Digital Radiogra phy 03/23/2024 3:44 PM PHOTOGRAPHIC PROCESS SCREEN MAKER Narrative 03/23/2024 3:51 PM PHOTOGRAPHIC PROCESS SCREEN MAKER EXAM DESCRIPTION: XR CHEST PA LATERAL 2 [...] Abdifatah Josue M.D. LB T: Report ID: [id number] Reading Location: [place] [address] Procedure Note Abdifatah Josue MD - 03/23/2024 [...] Abdifatah Josue M.D. LB T: Report ID: [id number] Reading Location: [place] [address] Lucrecia Jorgensen DOCUMENT COORDINATOR IMG XR PROCEDURES Final Result * Screening [...] signed by: Edy Olsen M.D., md/:06/22/2016 11:03:24 Director Stage: Jaz BARAJAS)(eRy), [facility] letter sent: Normal Exam Reading location: [...] mammogram, 04/18/2013 mammogram, and 03/24/2012 mammogram - [facility]. BREAST TISSUE: The tissue of both [...] mammogram, 04/18/2013 mammogram, and 03/24/2012 mammogram - [facility]. BREAST TISSUE: The tissue of both [...] signed by: Edy Olsen M.D., md/:06/22/2016 11:03:24 Director Stage: Jaz BARAJAS)(Rey), [facility] letter sent: Normal Exam Reading location: BI-RADS: 2 Benign [EOD] us Elena LOPEZ IMG MAMMO PROCED URES Final Result from Last 3 Months or Most Recently Relevant to Health Maintenance Insurance * Guarantor: Dakotah Jernigan Account Type Relation to Patient Date of Phone Billing Address Personal/Family Self 1955 [address] [place] [address] IDPA MEDICARE * Guarantor: Dakotah Jernigan Account Type Relation to Patient Date of Phone Billing Address Personal/Family Self 1955 [address] [place] [id number] MEDICARE [facility] Care Teams Credit Control Manager Relationship Specialty Start Date End Date Elena Payton PA PCP - General Physician Plant Protection Supervisor 09/11/18
--- OUTSIDE RECORDS SUMMARY | 2024-04-26 16:10 | XMS_ITS ---
Author Organization Replaced by [facility] Address [address] [place] [address] Care Team Providers Care Agricultural Produce Sorter Name Role Phone Jewel Gonzales Primary Care Provider [phone] [facility] Unav ailable Unavailable [...] 12/27/2023 Encounters Encounter Location Date Provider Diagnosis [address] [place] [address] 12/27/2023 Jewel Gonzales Anxiety F41.9 and Bipolar [...] * Noam JERNIGANB:1955 ( 68 yo F)Acc No.[id number]:12/27/2023 Patient: Gaetano MONSIVAIS Dakotah Provider: Padilla Gonzales :1955 A ge:68 Y S ex:Female Date:12/27/2023 Address:[address] [place], [place] [id number] Check In:01:16 PM REGULATORY AFFAIRS SPECIALIST Subjective: * Chief Complaints: * P sych [...] fall and broke pelvis and was in [facility] detention for almost 2 months. Now she is [...] in April 2021 after he was in detention due to dementia. Her 86 year old [...] T otal Score 0 . S creening: [place] Suicide Severity Rating Scale (LF) D o [...] attacks [facility] of COPD Mayroken [...] * Treatment: * Procedure Codes: G 0467 [facility] VISIT ESTABLISHED PATIENT * Follow Up: 3 Months * * LATORY AFFAIRS SPECIALIST Sign off status: Completed true * Provider: Padilla Gonzales Date: 02/25/2023 Generated for Tony bess/Salvatore/eTemma on: 0 04/26/2024 04:09 PM CDT History and Physical Notes * HPI (History of Present Illness) Category Sub-Category Detail Notes Category Not es Interim History Was hospitalized Yes , Yes , No , No , No , No , No Pt reports doing better. Sheisdone with walker and can walk good without it. Had a fall and broke pelvis and was in [facility] detention for almost 2 months. Now she is [...] in April 2021 after he was in detention due to dementia. Her 86 year old [...] Not at all Total Score: 0 Screening [place] Suicide Sev erity Rating Scale (LF) Do [...]
--- OUTSIDE RECORDS SUMMARY | 2024-04-26 16:10 | XMS_ITS | Clinical Summary ---
Author Organization [facility] [address] Address [address] [place] [address] Care Team Providers Care Retail Sales Assistant Name Role Phone Elena Payton Primary Care Pr ovider Allergies Active Allergy Reactions Criticality Noted Date Comments Codeine Itching,Unknown Low 12/28/2016 Penicillins Fever,Shortness of breath,Unknown High 12/28/2016 Sulfa (Sulfonamide Antibiotics) Itching,Nausea And Vomiting,Unknown Medium 12/28/2016 Sulfamethoxazole-Trimethopri m Itching,Nausea And Vomiting,Unknown Low 12/28/2016 Unclassified Drug Unknown 12/28/2016 Medications inhalat.spacing dev,large mask (OptiCNeocraftsber Ivette Lg Mask) spacer [facility] with Large Mask Active albuterol 2.5 mg [...] Department Care Team Description 03/23/2024 3:25 PM MICROBIOLOGY TECHNICIAN Ancillary Procedure [facility] Imaging at [address] [phone] Acute cough 03/23/2024 3:00 PM MICROBIOLOGY TECHNICIAN Office Visit [facility] Convenient Care at [address] [address] Lucrecia Greer NP Lower respiratory infection (e.g., bronchitis, pneumonia, pneumonitis, pulmonitis) (Primary Dx) from Last 3 Months Social History Tobacco Use Types Packs/Day Years Used Date Smoking Tobacco: Former Cigarettes Tobacco Cessation:Counseling Given: Not Answered Comments Unknown Sex and Gender Information Value Date Recorded Sex Assigned at Not on file Legal Sex Female 6:39 AM MICROBIOLOGY TECHNICIAN Gender Identity Not on file Sexual Orientation Not on file Obstetrics History Last Filed Vital Signs Vital Sign Reading Time Taken Comments Blood Pressure 104/71 03/23/2024 3:02 PM MICROBIOLOGY TECHNICIAN Pulse 85 03/23/2024 3:02 PM MICROBIOLOGY TECHNICIAN Temperature 36.8 C (98.3 F) 03/23/2024 3:02 PM MICROBIOLOGY TECHNICIAN Respiratory Rate 20 03/23/2024 3:02 PM MICROBIOLOGY TECHNICIAN Oxygen Saturation 95% 03/23/2024 3:02 PM MICROBIOLOGY TECHNICIAN Inhaled Oxygen Concentration - - Weight 85.7 kg (189 lb) 03/23/2024 3:02 PM MICROBIOLOGY TECHNICIAN Height 170.2 cm (5' 7.01 ) 02/04/2023 9:27 AM CS T Body Mass Index 29.59 02/04/2023 9:27 AM MICROBIOLOGY TECHNICIAN Plan of Treatment Health Maintenance Due Date [...] A/B, COVID-19 ANTIGEN Routine 03/23/2024 3:36 PM MICROBIOLOGY TECHNICIAN Lower respiratory infection (e.g., bronchitis, pneumonia, pneumonitis, pulmonitis) XR CHEST PA LATERAL 2 VIEWS Routine 03/23/2024 3:26 PM MICROBIOLOGY TECHNICIAN Acute cough SCREENING MAMMOGRAM BILATERAL W YOSEF Routine 06/22/2016 9:57 AM CDT from Last 3 Months or Most Recently Relevant to Health Maintenance Results * POC Influenza A/B, COVID-19 antigen (03/23/2024 3:36 PM MICROBIOLOGY TECHNICIAN) Influenza A Ag, POC Negative Negative [facility] Influenza B Ag, POC Negative Negative [facility] COVID-19 Ag POC Presumptive Negative Presumptive Negative, Invalid [facility] [place] [place] [facility] Nasal 03/23/2024 3:36 PM MICROBIOLOGY TECHNICIAN Lucrecia Jorgensen NP POINT OF CARE TEST ORDERABLES Final Result Performing Organization Address City/State/[facility] Co de Phone Number [facility] [address] [place] [address] * XR Chest PA Lateral 2 Views (03/23/2024 3:26 PM MICROBIOLOGY TECHNICIAN) Anatomical Region Laterality Modality Body, Chest N/A Digital Radiogra phy 03/23/2024 3:44 PM MICROBIOLOGY TECHNICIAN Narrative 03/23/2024 3:51 PM MICROBIOLOGY TECHNICIAN EXAM DESCRIPTION: XR CHEST PA LATERAL 2 [...] Abdifatah Josue M.D. LB T: Report ID: [id number] Reading Location: [id number] Procedure Note Abdifatah Josue MD - 03/23/2024 [...] Abdifatah Josue M.D. LB T: Report ID: [id number] Reading Location: [id number] Lucrecia Jorgensen RECRUITMENT OFFICER IMG XR PROCEDURES Final Result * Screening [...] signed by: Edy Olsen M.D., md/:06/22/2016 11:03:24 Bobbin Winder Tender: Jaz BARAJAS)(Rey), [facility] letter sent: Normal Exam Reading location: [...] mammogram, 04/18/2013 mammogram, and 03/24/2012 mammogram - [facility]. BREAST TISSUE: The tissue of both [...] mammogram, 04/18/2013 mammogram, and 03/24/2012 mammogram - [facility]. BREAST TISSUE: The tissue of [...] signed by: Edy Olsen M.D., md/:06/22/2016 11:03:24 Bobbin Winder Tender: Jaz Oneill RTEdith)(M), [facility] letter sent: Normal Exam Reading location: BI-RADS: 2 Benign [EOD] us Elena LOPEZ IMG MAMMO PROCED URES Final Result from Last 3 Months or Most Recently Relevant to Health Maintenance Insurance MEDICARE MEDICARE IDPA Care Teams Retail Sales Assistant Relationship Specialty Start Date End Date Elena Payton PA PCP - General Physician Railway Signalling Engineer 09/11/18
--- OUTSIDE RECORDS SUMMARY | 2024-04-26 16:10 | XMS_ITS ---
Author Organization [facility] Address [address] [place] [address] Care Team Providers Care Russian Rubber Name Role Phone Jewel Gonzales Primary Care Provider [facility] Unav ailable Unavailable [...] 03/20/2024 Encounters Encounter Location Date Provider Diagnosis [address] [place] [address] 03/20/2024 Jewel Gonzales Nutritional counseli ng Z71.3 [...] * Arlen JERNIGAN:1955 ( 68 yo F)Acc No.[id number]:03/20/2024 Patient: Dakotah DENG Provider: Padilla Gonzales :1955 A ge:68 Y S ex:Female Date:03/20/2024 Address:[address] [place] [address] [address], [address], [facility] Check In:12:[address]ERK Subjective: * Chief Complaints: * P sych F/[facility] Interpretation and Follow UP PlanBMI over 25 [...] fall and broke pelvis and was in [facility] half-way for almost 2 months. Now she is [...] in April 2021 after he was in half-way due to dementia. Her 86 year old [...] I nterpretation M ild Depression. S creening: [place] Suicide Severity Rating Scale (LF) D o [...] visits for blood clots, kidney stones,asthma attacks [place] [facility]igestion [facility] for exacerbation of COPD Mayroken pelvic [...] Procedure Codes: 3 008F BODY MASS INDEX [id number] MEDICAL NUTRITION, INDIV, [id number] TOBACCO [id number] [facility] VISIT ESTABLISHED PATIENT * Preventive Medicine: Counseling: C are goal follow-up plan: B NM management provided Padilla Peterson Normal BMI Follow-up L ifestyle education regarding diet. * Follow Up: 3 Months * * RIOR COURT CLERK Sign off status: Completed true * Provider: Padilla Gonzales Date: 0 03/20/2024 Generated for Madhurii shahriar/Salvatore/Nigelsmbrett on: 0 04/26/2024 04:10 PM CDT History and Physical Notes * HPI (History of Present Illness) Category Sub-Category Detail Notes Category Not es Interim History Was hospitalized Yes , Yes , No , No , No , No , No Pt reports doing alright. Still using walker. Had a fall and broke pelvis and was in [facility] home for almost 2 months. Now she [...] in April 2021 after he was in half-way due to dementia. Her 86 year old [...] Total Score: 5 Interpretation: Mild Depression Screening [place] Suicide Sev erity Rating Scale (LF) Do [...]
--- OUTSIDE RECORDS SUMMARY | 2024-04-26 16:10 | XMS_ITS | Encounter Summary ---
Author Organization [facility] Address [address] [place] [address] Care Team Providers Care Real Estate Paralegal Name Role Phone Elena Payton Primary Care Provider [phone] Robbin Rodgers MD Unavailable Encounter Details Date Type Department Care Team (Latest Contact Info) Description 12/13/2017 Abstract [facility] Cayetano Day MD Social History Tobacco Use Types Packs/Day Years Used Date Smoking Tobacco: Never Smokeless Tobacco: Never Alcohol Use Standard Drinks/Week Comments No 0 (1 standard drink = 0.6 oz pur e alcohol) Comments Unknown Sex and Gender Information Value Date Recorded Sex Assigned at Not on file Legal Sex Female 7:42 PM CDT Gender Identity Not on file Sexual Orientation Not on file documented as of this encounter Plan of Treatment Not on file documented as of this encounter Visit Diagnoses Not on filedocumented in this encounter Care Teams Real Estate Paralegal Relationship Specialty Start Date End Date Elena Payton PA [facility] [address] [place] [address] PCP - General 12/28/16 Robbin Rodgers MD [address] [address] Referring Physician VASCULAR SURGERY 12/28/16 documented as of this encounter
--- OUTSIDE RECORDS SUMMARY | 2024-04-26 16:10 | XMS_ITS | Clinical Summary ---
Author Organization [facility] Address [address] [place] [address] Care Team Providers Care Conveyor System Operator Name Role Phone Elena Payton Primary Care Provider [phone] Robbin Rodgers MD Unavailable Allergies Active Allergy Reactions Criticality Noted Date Comments Sulfamethoxazole-Trimethoprim Unknown 2016 Codeine Unknown 12/28/2016 Penicillins Unknown 12/28/2016 Sulfa Antibiotics Unknown 12/28/2016 Sulfadimethoxine Unknown 12/28/2016 Sulfamethizole Unknown 12/28/2016 Medications levothyroxine 50 MCG tablet Take 1 tablet by mouth daily. 11 12/23/2016 Active XARELTO 20 MG Tab tablet Take 1 tablet by mouth daily. 4 12/20/2016 Active citalopram 20 MG tablet Take 1 tablet by mouth daily. 3 12/15/2016 Active clonazePAM 1 MG tablet Take 1 tablet by mouth 2 (two) times daily. 3 12/15/2016 Active QUEtiapine 400 MG tablet Take 1 tablet by mouth nightly at bedtime. 3 12/15/2016 Active QUEtiapine 50 MG tablet Take 1 tablet by mouth daily with lunch. 3 12/15/2016 Active risperiDONE 2 MG tablet Take 1 tablet by mouth nightly at bedtime. 3 12/15/2016 Active ADVAIR HFA 115-21 MCG/ACT inhaler Inhale 1 puff into the lungs 2 (two) times daily. 11 11/19/2016 Active ALBUTEROL SULFATE HFA 108 (90 BASE) MCG/ACT inhaler Inhale 2 puffs into the lungs every 6 (six) hours as needed for Wheezing. 01/06/2017 Active Active Problems Problem Noted Date Diagnosed Date Hematuria 01/11/2017 Deep vein thrombosis (DVT) o f lower extremity ([facility]) 01/11/2017 Family History Medical History Relation Comments Heart Attack Father Relation Status Comments Father (Age 85) Mother (Age 62) Social History Tobacco Use Types Packs/Day Years [...] Sign Reading Time Taken Comments Blood Pressure 104/69 01/06/2017 8:32 AM CHEMICAL ECONOMIST Pulse 81 01/06/2017 8:32 AM CHEMICAL ECONOMIST Temperature - - Respiratory Rate - - Oxygen Saturation - - Inhaled Oxygen Concentration - - Weight 69.9 kg (154 lb) 01/06/2017 8:32 AM CHEMICAL ECONOMIST Height 170.2 cm (5' 7 ) 01/06/2017 8:32 AM CHEMICAL ECONOMIST Body Mass Index 24.12 01/06/2017 8:32 AM CHEMICAL ECONOMIST Plan of Treatment Health Maintenance Due Date Last Done Comments Colorectal Cancer Screening Colonoscopy (10 Years) 1955 Hepatitis C 1972 DTaP, Tdap and Td Vaccines ( 1 - Tdap) 1973 Mammogram Screening 1994 Zoster Vaccines (1 of 2) 2004 Annual Medicare Wellness Visit 05/15/2019 Dexa Scan (General) 05/15/2019 Pneumococcal Vaccine: 65+ Ye ars (1 of 1 - PCV) 05/15/2019 COVID-19 Vaccine ( - 2023-2 5 season) 2023 Influenza Adult (#1) 2023 RSV Immunization or 60+ Years (1 - 1-dose 75+ series) 2029 Meningococcal B Vaccine Aged Out No l onger eligible based on patient's age to complete this topic Meningococcal Vaccine Aged Out No nilson tommy eligible based on patient's age to complete this topic RSV Immunizations Under 20 Months Aged Out No longer eligible based on patient's age to complete this topic Insurance MEDICAID MEDICARE Care Teams Conveyor System Operator Relationship Specialty Start Date End Date Elena Payton PA [address] [facility] [address] [place] [address] PCP - General 12/28/16 Robbin Rodgers MD [place] [address] [place] [address] Referring Physician VASCULAR SURGERY 12/28/16
--- OUTSIDE RECORDS SUMMARY | 2024-04-26 16:10 | XMS_ITS | Patient Health Record ---
Author Organization [facility] Address [address] [place] [address] Care Team Providers Care Waxer Operator Name Role Phone Jewel Gonzales Primary Care Provider [facility] Services Unav ailable Unavailable Allergies Allergen (clinical [...] Status W/U Status Risk Notes Problem Anxiety (99470388) Anxiety (F41.9) 11/06/2021 Active confirmed Problem Bipolar 1 disorder (915620468) Bipolar 1 disorder (F31.9) 11/06/2021 Active confirmed Vital Signs Heart Rate 79 /min 03/20/2024 Respiratory Rate 16 /min 03/20/2024 Blood pressure diastolic 82 mm Hg 03/20/2024 Oximetry 97 % 03/20/2024 Height 67 in 03/20/2024 Blood pressure systolic 126 mm Hg 03/20/2024 Weight 181.8 lbs 03/20/2024 BMI 28.47 kg/m2 03/20/2024 Encounters Encounter Location Date Provider Diagnosis [address] [address] 06/14/2023 Arif Habib Anxiety F41.9 and Bipolar [address] disorder [address] [address] 10/04/2023 Arif Habib Nutritional counseli ng Z71.3 ; Anxiety F41.9 and Bipolar 1 disorder [address] [address] 12/27/2023 Arif Habib Anxiety F41.9 and Bipolar 1 disorder F31.[address] [address] 03/20/2024 Arif Habib Nutritional counseli ng Z71.3 ; Anxiety F41.9 and Bipolar 1 disorder F31.[address] [address] 08/18/2023 Arif Habib Assessments Encounter Date Diagnosis (ICD Code) Assessment Notes Treatment Notes Treatment Clinical Notes Section Notes 06/14/2023 Anxiety (ICD-10 - F41.9) 10/04/2023 Nutritional counseling (ICD-10 - Z71.3) 12/27/2023 Anxiety (ICD-10 - F41.9) 03/20/2024 Nutritional counseling (ICD-10 - Z71.3) 12/27/2023 Bipolar 1 disorder (ICD-10 - F31.9) risk & benefits discussed in detail. Continue current treatment. No involuntary movements reported. 03/20/2024 Anxiety (ICD-10 - F41.9) 06/14/2023 Bipolar 1 disorder (ICD-10 - F31.9) risk & benefits discussed in detail. Continue current treatment 10/04/2023 Anxiety (ICD-10 - F41.9) 10/04/2023 Bipolar [...] Date MEDICARE PART A [address] [place] [address] [id number] Dakotah Jernigan Self - patient is the insured 5 [employer] Medicare [address] [place] [address] [id number] Dakotah Jernigan Self - patient is the insured 1 1 MEDICAID [address] [place] [address] [id number] Dakotah Jernigan Self - patient is the insured 0 [facility] Medicare Assure [address] [address] [place] [address] [id number] Dakotah Jernigan Self - patient is the [...]
--- OUTSIDE RECORDS SUMMARY | 2024-04-26 16:11 | XMS_ITS | Clinical Summary ---
Author Organization [facility] Care Team Providers Care Freelance Court Reporter Name Role Phone Unavailable Primary Care Provider [...]
--- OUTSIDE RECORDS SUMMARY | 2024-04-26 16:11 | XMS_ITS | Data Portability ---
Author Organization [facility] [place], Main Office Address [address] [place] [address] Care Team Providers Care Film Historian Name Role Phone ALEKSANDER VILLANUEVA Primary Care Provider [phone] ALEKSANDER VILLANUEVA Referring Provider [phone] Assessment Encounter Date Assessment Date Assessment LastModified by Organization Details LastModified Time 04/19/2024 04/19/2024 This note is dictated and transcribed by [employer] Direct [employer]. Rn Discharge variances may occur. Despite proofreading, typographical errors may occur. Occasional wrong-word or 'ifeqz-q-bffo' substitutions may have occurred due to the inherent limitations of voice recording. Read the chart carefully and recognize, using context, where substitutions have occurred. [email or web address] Not available 04/19/2024 12:00:51 Plan of Treatment Reminders Order Date Submit Date Provider Last Modified By Organization Details Last Modified Time Details Appointments None recorded. Lab vitamin D, 25-hydroxy, total, serum 2022 [email or web address] [place] [address] (Lab), [address] [place] [address], [address], 3 12:43:40 HbA1c (hemoglobin A1c), blood 2022 [email or web address] [place] [address] (Lab), [address] [place] [address], [address], 3 12:43:39 BMP, serum or plasma 2022 [email or web address] [place] [address] (Lab), [address] [place] [address], [address], 3 12:43:39 CBC w/ auto diff [address] (Lab), [address] [place] [address], [address], 3 12:43:39 hepatic function panel, serum [address] (Lab), [address] [place] [address], [address], 3 12:43:40 lipid panel, serum [address] (Lab), [address] [place] [address], [address], 3 12:43:40 noninvasive colorectal cancer DNA + occult blood screening, QL, stool 2022 023 [email or web address] [facility] (Cologuard Orders Only), [address], [address], [place], [address], 4 14:59:43 urinalysis complete, reflex culture [address] (Lab), [address] [place] [address], [address], 3 12:43:39 T4, free, serum [address] (Lab), [address] [place] [address], [address], 3 12:43:39 TSH, serum or plasma 2022 023 [facility] (Lab), [address] [place] [address], [address], 3 14:26:30 Referral chlorinator referral 2022 023 JEFF Nico Bowling DPM, [address], [place], [address], 05:01:27 Procedures None recorded. Surgeries None recorded. Imaging MAMMO, screening, digital, bilateral 2022 023 [facility] (Mammography) , [address], [place], [address], 3 16:28:21 Medication Orders loratadine 10 mg tablet 2022 023 [id number], [address], [place], [place], [id number], 17:48:17 Patient TargetsNo targets recorded. Patient InstructionsNo instructions recorded. 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 [id number] Not Available 04/07/2022 05:21:49 12/17/19 21 11/20/2020 CT, abdom en + pelvi s, w/ contr ast No observ ation record ed. [id number] [facility] (Imaging) [address], [place], [address], 04/07/2022 05:21:49 12/18/19 21 11/23/2020 CT, angio gram, chest , w/ contr ast No observ ation record ed. MIGRATION. [address] [facility] [place], [address], 04/07/2022 05:21:49 12/18/19 21 11/23/2020 XR, chest , 2 view No observ ation record ed. MIGRATION. [facility] (Imaging) [address] [place] [address], [place], [address], 04/07/2022 05:21:49 04/15/19 22 04/12/2021 XR, chest No observ ation record ed. MIGRATION. [facility] (Imaging) [address] [place] [address], [place], [address], 04/07/2022 05:21:49 04/18/19 22 03/26/2021 US, doppl er, venou s No observ ation record ed. MIGRATION. Not Available 04/07/2022 05:21:49 04/28/19 22 04/27/2021 MAMMO , scree barbara, digit al, bilat eral No observ ation record ed. MIGRATION. Not Available 04/07/2022 05:21:49 06/23/19 22 06/22/2021 CT, abdom en + pelvi s, w/ contr ast No observ ation record ed. MIGRATION. [address] [address], [place], [address], 04/07/2022 05:21:49 10/30/19 22 10/19/2021 US, doppl er, venou s No observ ation record ed. MIGRATION. [address] [facility] [place], [address], 04/07/2022 05:21:49 12/17/19 22 12/15/2021 XR, chest No observ ation record ed. MIGRATION. [facility] (Human Resources) [address] [place] [address], [place], [address], 04/07/2022 05:21:49 07/31/19 23 07/29/2022 MAMMO , scree barbara, digit al, bilat eral No observ [facility]ion [facility] ed. [email or web address] [address], [place], [address], 10/26/2022 18:26:57 12/10/19 23 09/15/2022 XR, foot No observ ation record ed. [email or web address], [place], [address], 12/13/2022 17:13:24 Result Notes None recorded. Problems Name Problem SNOMED Code Status Onset Date Resolution Date Notes Provider Name and Address Organization Details Recorded Time Impacted cerumen of bilateral ears 2665234655740 108 Active 2021 Not Available [facility] 3 05:13:46 Trimalleol ar fracture 236234726 Active 2018 Not Available [facility] 3 05:13:46 Trimalleol ar fracture 791199326 Active 2018 Not Available [facility] 3 05:13:46 Bipolar disorder 83005870 Active Not Available [facility] 3 05:13:46 Blood glucose outside reference range 479053725 Active Not Available [facility] 3 05:13:46 Chronic urinary tract infection 891393439 Active Not Available [facility] 3 05:13:46 Elbow joint pain 400191844 Active Not Available [facility] 3 05:13:46 Long-term drug therapy Active 2021 Not Available [facility] 3 05:13:46 Anemia 629761119 Active Not Available [facility] 3 05:13:46 Eruption 386308094 Active Not Available [facility] 3 05:13:46 Cholestero l screening Active 2021 Not Available [facility] 3 05:13:46 Vaginal lesion 045825956 Active Not Available [facility] 3 05:13:46 Lower urinary tract symptoms 965692653 Active 2021 Not Available [facility] 3 05:13:46 Otitis externa 2317361 Active Not Available [facility] 3 05:13:46 Pain in left knee Active Not Available [facility] 3 05:13:47 Major depressive disorder 697006473 Active Not Available [facility] 3 05:13:47 Impairment of balance 959006214 Active Not Available [facility] 3 05:13:47 Hypothyroi dism 57852803 Active Not Available [facility] 3 05:13:47 Hip pain 88628591 Active Not Available [facility] 3 05:13:47 Wheezing 06069912 Active 2018 Not Available [facility] 3 05:13:47 Osteoporos is 14476679 Active Not Available [facility] 3 05:13:47 Otitis media 46884669 Active 2021 Not Available [facility] 3 05:13:47 Fatigue 79154302 Active Not Available [facility] 3 05:13:47 Facial paresthesi a 60016203 Active Not Available [facility] 3 05:13:47 Asthma 164963136 Active 2022 JESSICA Allen [address], [place], [address] , [employer] [place] [employer] [facility] 3 13:09:04 Hyperlipid emia 24278627 Active 2022 JESSICA Allen [address], [address], [place], [address] , [employer] [facility] [employer] [facility] 3 15:24:04 Seasonal allergic rhinitis 746807114 Active 2022 JESSICA Allen [address], [address], [place], [address] , [employer] [facility] 3 17:47:52 Acute urinary tract infection 502504080 Active 2022 JESSICA Allen [address], [address], [place], [address] , [employer] 3 16:06:55 Dystrophia unguium 71952358 Active 2024 Nico Bowling DPM [address], [address], [place], [address] , [employer] [facility] 5 13:57:56 Bunion 051856624 Active 2024 Nico Bowling DPM [address], [address], [place], [address] , [employer] 13:57:59 Hammer toe 932437795 Active 2024 Nico Bowling DPM [address], [address], [place], [address] , [employer] 5 13:58:28 Pain in toe 755991569 Active 2024 Nico Bowling DPM [address], [address], [place], [address] , [employer] 13:58:41 Problem Notes None recorded. Procedures Surgical History Date Name Laterality Status Provider Name and Address Organization Details Recorded Time 04/20/19 25 Nail Debridement completed Nico Bowling DPM [address], [address], [place], [address], [employer] 04/19/2024 13:57:27 04/09/19 20 Most Recent Bone Density completed Not Available [facility] 04/07/2022 05:05:19 Tubal Ligation completed Not Available [facility] 04/07/2022 05:05:22 Cholecystectomy completed Not Available [facility] 04/07/2022 05:05:22 Orthopedic Surgery completed Not Available [facility] 04/07/2022 05:05:22 Imaging Results Imaging Date Name Status [facility]Modified by [facility] Details LastModified Time 06/22/2021 CT, abdomen + pelvis, w/ contrast completed [id number] [address] [place] [address] [address], [place], [address], 04/07/2022 05:21:49 11/23/2020 CT, angiogram, chest, w/ contrast completed [id number] [facility], [place], [address], 04/07/2022 05:21:49 11/23/2020 XR, chest, 2 view completed [id number] [facility] (Im[facility]) [address] [place] [address] [address]te [facility], [place], [address], 04/07/2022 05:21:49 08/27/2020 US, doppler, venous completed [id number] Information not available 04/07/2022 05:21:49 11/20/2020 CT, abdomen + pelvis, w/ contrast completed [id number] [facility] (Im[facility]) [address] [place] [address] [address]te [facility], [place], [address], 04/07/2022 05:21:49 04/12/2021 XR, chest completed [id number] [facility] (Im[facility]) [address] [place] [address] [address]te [facility], [place], [address], 04/07/2022 05:21:49 03/26/2021 US, doppler, venous completed [id number] Information not available 04/07/2022 05:21:49 04/27/2021 MAMMO, screening, digital, bilateral completed [id number] Information not available 04/07/2022 05:21:49 10/19/2021 US, doppler, venous completed [id number] [facility], [place], [address], 04/07/2022 05:21:49 12/15/2021 XR, chest completed [id number] 026 [facility] (Human Resources) [address] [place] [address]-[facility], [place], [address], 04/07/2022 05:21:49 07/29/2022 MAMMO, screening, digital, bilateral completed [email or web address] [address], [place], [address], 10/26/2022 18:26:57 09/15/2022 XR, foot completed [address] [facility] [address], [place], [address], 12/13/2022 17:13:24 Procedure Notes None recorded. Medical Equipment None Reported. Allergies Allergen ID Allergen Name Allergen Category Reaction Reaction Severity Criticality Documentation Date Start Date Code Code System Note Provider Name and Address Organization Details Recorded Time 71639 Cipro medicatio n Not available Not available Not available 04/19/202433972 3 RxNorm Melinda vicente, [facility] [employer] [facility] [employer] 5 12:21:41 20095 Levaquin medicatio n Not available Not available Not available 04/19/2024 77082 2 RxNorm Melinda vicente, [employer] [facility] [employer] [facility] [employer] 5 12:21:56 9545 sulfameth izole Not available Not available Not available Not available 04/07/2022 40992 RxNorm Not Available [facility] 3 05:21:25 9546 sulfadime thoxine Not available Not available Not available Not available 04/07/2022 37371 RxNorm Not Available [facility] 3 05:21:25 9547 Substance with sulfonami de structure and antibacte rial mechanism of action (substanc e) medicatio n itching moderate Not available 04/07/2022 85798 8003 SNOMED Not Available [facility] 3 05:21:25 9548 Product containin g penicilli n (product) medicatio n fever moderate Not available 04/07/2022 19265 8001 SNOMED Not Available [facility] 3 05:21:25 9549 codeine medicatio n Not available Not available Not available 04/07/2022 2670 RxNorm Not Available [facility] 3 05:21:25 9550 Bactrim medicatio n itching mild Not available 04/07/2022 98779 9 RxNorm Not Available [facility] 3 05:21:25 Medications Name Sig Start Date [...] active Not Available Not Available Not Available potassium chloride ER 10 mEq tablet,exte nded release active Not Available Not Available Not Available [...] completed Not Available Not Available Not Available furosemide 20 mg tablet active Not Available Not Available Not Available levalbutero [...] completed Not Available Not Available Not Available [facility] with Large Mask 05/25 completed Not Available [...] % 96 % 96 /min 98 [degF] 14534.8 5 g 110 mm[Hg] 60 mm[Hg] Not Available [facility] 3 05:11:19 Date Recorded Body mass index (BMI) Body height Oxygen saturation Oxygen saturation in Arterial blood by Pulse oximetry Heart rate Body temperature Body weight Systolic blood pressure Diastolic blood pressure Provider Name and Address Organization Details Last Updated DateTime 1 27.8 kg/m2 170.18 cm 96 % 96 % 112 /min 96.2 [degF] 68501 g 120 mm[Hg] 80 mm[Hg] Not Available [facility] 3 05:11:19 Date Recorded Body mass index (BMI) Body height Oxygen saturation Oxygen saturation in Arterial blood by Pulse oximetry Heart rate Respiratory rate Body temperature Body weight Systolic blood pressure Diastolic blood pressure Provider Name and Address Organization Details Last Updated DateTime 2 30 kg/m2 170.18 cm 97 % 97 % 99 /min 16 /min 97.6 [degF] 31131.3 g 110 mm[Hg] 70 mm[Hg] Not Available [facility] 3 05:11:19 Date Recorded Body height Body temperature Body mass index (BMI) Body weight Respiratory rate Oxygen saturation Oxygen saturation in Arterial blood by Pulse oximetry Heart rate Systolic blood pressure Diastolic blood pressure Provider Name and Address Organization Details Last Updated DateTime 3 170.18 cm 97.6 [degF] 31 kg/m2 48713.2 9 g 16 /min 98 % 98 % 104 /min 128 mm[Hg] 80 mm[Hg] EDWARD Valles [facility] [employer] [facility] 3 14:42:15 Date Recorded Body height Body mass index (BMI) Body weight Heart rate Respiratory rate Oxygen saturation Oxygen saturation in Arterial blood by Pulse oximetry Systolic blood pressure Diastolic blood pressure Provider Name and Address Organization Details Last Updated DateTime 5 170.18 cm 31 kg/m2 85954.2 9 g 107 /min 14 /min 98 % 98 % 99 mm[Hg] 70 mm[Hg] Melinda Marin [facility] [employer] [facility] 5 11:17:43 Social History Question Answer Notes LastModified by [employer] Details LastModified Time Tobacco Smoking Status Never Smoker Not Available [facility] 04/07/2022 05:04:25 What Is Your Level Of Alcohol Consumption? None [id number] Information not available 04/07/2022 What Is Your Level Of Caffeine Consumption? Occasional [id number].[id number] Information not available 04/07/2022 How Much Tobacco Do You Chew? None MIGRATION.[id number] 7787 Information not available 04/07/2022 In The 14 Days Before Symptom Onset, Have You Had Close Contact With A Laboratory-confir med COVID-19 While That Case Was Ill? No [id number].[id number] Information not available 04/07/2022 In The 14 Days Before Symptom Onset, Have You Had Close Contact With A Person Who Is Under Investigation For COVID-19 While That Person Was Ill? No MIGRATION.[id number] 6206 Information not available 04/07/2022 Are You Currently Employed? No [email or web address] Information not available 05/24/2022 What Type Of Diet Are You Following? REGULAR MIGRATION.274490 4790 Information not available 04/07/2022 Which Illicit Or Recreational Drugs Have You Used? None MIGRATION.[id number] 7413 Information not available 04/07/2022 Do You Or Have You Ever Used E-cigarettes Or Vape? Never Used Electronic Cigarettes MIGRATION.[id number] 5980 Information not available 04/07/2022 What Is Your Occupation? Unemployed MIGRATION.422002 8610 Information not available 04/07/2022 Have There Been Any Changes To Your Family Or Social Situation? No MIGRATION.316606 2873 Information not available 04/07/2022 Do You Use Insect Repellent Routinely? No MIGRATION.036700 0828 Information not available 04/07/2022 What Was The Date Of Your Most Recent Tobacco Screening? 04/19/2024 Information not available 04/19/2024 What Is Your Relationship Status? Single MIGRATION.745271 9352 Information not available 04/07/2022 Do You Use Your Seat Belt Or Car Seat Routinely? Yes MIGRATION.383455 4424 Information not available 04/07/2022 Do You Have Smoke And Carbon Monoxide Detectors In Your Home? Yes MIGRATION.977045 8858 Information not available 04/07/2022 Do You Or Have You Ever Used Smokeless Tobacco? Never Used Smokeless Tobacco MIGRATION.483560 2405 Information not available 04/07/2022 How Much Tobacco Do You Smoke? No MIGRATION.887594 2453 Information not available 04/07/2022 Do You Use Any Illicit Or Recreational Drugs? No MIGRATION.165698 0183 Information not available 04/07/2022 Do You Use Sunscreen Routinely? Yes MIGRATION.439809 2129 Information not available 04/07/2022 Has Tobacco Cessation Counseling Been Provided? No Information not available 04/19/2024 Have You Recently Traveled Abroad? No MIGRATION.648128 5264 Information not available 04/07/2022 Do You Have Any Dietary Restrictions? No MIGRATION.264274 5054 Information not available 04/07/2022 Do You Or Have You Ever Used Any Other Forms Of Tobacco Or Nicotine? No MIGRATION.116581 5090 Information not available 04/07/2022 Sex: Unknown Functional Status Question Answer Note LastModified by Organizat ion Details LastModified Time Do you have difficulty walking or climbing stairs? No MIGRATION.[id number] 026 Information not available 04/07/2022 Do you have transportation difficulties? Yes MIGRATION.9026563 026 Information not available 04/07/2022 Are you able to walk? YESWOREST MIGRATION.9786830 026 Information not available 04/07/2022 Are you able to care for yourself? No Information n ot available 05/24/2022 Do you have difficulty dressing or bathing? No MIGRATION.[id number] 026 Information not available 04/07/2022 What is your exercise level? None MIGRATION.4211488 026 Information not available 04/07/2022 Mental Status Question Answer Note LastModified by Organization D etails LastModified Time Do you have difficulty concentrating, remembering or making decisions? Yes [email or web address] Information no t available 05/24/2022 Family History Relationship Description Onset Age of this Age Resolved Age Notes LastModified by Organization Details LastModified Time Mother Motor vehicle traffic accident [id number] Not available 04/07/2022 05:05:28 Medical History Condition Response ANXIETY DISORDER Y ASTHMA Y HYPOTHYROIDISM Y BRONCHITIS Y OSTEOPOROSIS Y URINARY/BLADDER/KIDNEY PROBLEMS Y LUNG DISEASE/DISORDER Y DEPRESSION (INCLUDING POST ) Y BOWEL PROBLEMS Y HEARTBURN / REFLUX Y Gynecological History Statement/Question Response Date of Last Mammogram 04/27/2021 Current Control Method Tubal Ligat ion Most Recent Bone Density 04/09/2019 Obstetrics History GPAL:G 0 P 0 0 0 0 Immunizations Vaccine Type Date Status Note Provider Nam e and Address Organization Details Recorded Time influenza, unspecified formulation 5 completed Not Available [facility] 04/07/2022 05:21:16 Past Encounters Encounter ID Performer Location Encounter Start Date Encounter Closed Date Diagnosis/Indication Diagnosis SNOMED-CT Code Diagnosis ICD10 Code Diagnosis Note [id number] [facility] [address] [place] [address] 07/14/2020 00:00:00 08/02/2020 23:47:21 [id number] [facility] [address] [place] [address] 07/29/2020 00:00:00 08/05/2020 01:23:05 [id number] [facility] [address] [place] [address] 08/27/2020 00:00:00 09/06/2020 08:48:14 [id number] [facility] [address] [place] [address] 04/01/2021 00:00:00 04/04/2021 19:53:54 [id number] JESSICA Allen [facility] [address] [place] [address] 05/25/2022 14:05:06 05/25/2022 15:31:44 Hypothyroidism 97950445 E03.9 stable on supplement . due for labs. Major depr essive disorder 425192934 F32.9 stable on celexa therapy Blood gluc ose outside reference range 745344613 R73.09 due for a1c screening. Asthma 612291387 J45.90 9 stable. on advair Chronic ur inary tract infection 224753754 N39.0 UA w/cx due Long-term drug therapy 090455050 Z79.899 routine bmp, cbc, and LFT due Osteoporosis 79688860 M8 1.0 vit D screening due Hyperlipidemia 14699479 E78.5 fasting lipids are due Screening mammography 24 908445 Z12.31 mammogram due Unable to cut own toenails 839012583 Z74.1 refer to chlorinator Seasonal a llergic rhinitis 683216221 J30.2 start loratidine 10mg daily. Screening for malignant neoplasm of colon 938859785 Z12.11 pt would like cologuard testing option. [id number] Nico Bowling DPM [facility] Pod[facility] Domen[facility] [address] [place] [address] 04/19/2024 11:08:22 04/24/2024 09:48:47 Pain in toe 854633012 M79.674 M79.675 secondary to deformitie sRecommend wide supportive shoe gearRecomm end offloading silicone toe sleevesRec ommend monitoring for wounds daily if present seek medical attention immediatel yFollow-up in 3 months for routine foot care Dystrophia unguium 11768 009 L60.3 nails debrided without incident Bunion 724136005 M21.61 9 bilateral worse to the righteduca karena on treatment optionsdoe s not want surgerysho wn conservati ve optionsfol low-up as needed Hammer toe 609458620 M20 .41 M20.42 as above Health Concerns Section Related Observation LastModified by Organization Detai ls LastModified Time None Recorded Concern Status LastModified by Organization Details LastModified Time None Recorded Advance Directives Directive None Recorded Payers Encounter Date Sequence Insurance Name Policy Number Policy Oliveira Covered Member ID Oliveira Member ID Guarantor Name 05/25/2022 1 [place] Dakotah L Jernigan [id number] Dakotah L Jernigan 05/25/2022 2 [place] OR MEDICARE REPLACEMENT PRIMARY) Dakotah L Jernigan [id number] Dakotah L Jernigan 04/19/2024 1 [place] Dakotah L Jernigan [id number] Dakotah L Jernigan 04/19/2024 2 [place]IC[place] RE[place]ACEMENT [place]) Dakotah L Jernigan [id number] Dakotah L Jernigan Notes Date Note Type Note Provider Name and Address Organization Details Recorded Time 021 text/ht ml Anxiety/DepressionReported bypatient.Severity:denies suicidal ideations; [...] palpitations Treatment:taking medication as directed Not Available [facility] [employer] [facility] 08/05/2020 01:23:05 021 text/ht ml Allergy/sinusitisReported bypatient.Onset/Timing:new [...] fine no more leg swelling Not Available [employer] 09/06/2020 08:48:14 022 text/ht ml EaracheReported bypatient.Location:right [...] medication and due for labs. Not Available [employer] 04/04/2021 19:53:54 023 text/ht ml Anxiety/DepressionReported bypatient.Quality:doesnt [...] skin changes; no hair changes JESSICA Allen [address], [place], [address], [employer] 06/04/2022 13:50:05 025 text/ ml Patient presents the office with complaints of pain to her right 4th toe. Patient has had previous surgeries to the right foot x2 with no success in treatment of her lesser toes. Patient due to this has crowding of the toes with a painful right 4th proximal interphalangeal joint due to hammering and a dislocated 1st MPJ bunion deformity. Nico Bowling DPM [address], [place], [address], [employer] 04/19/2024 13:59:42 OBGyn Episode No OBEpisode recorded.
--- OUTSIDE RECORDS SUMMARY | 2024-04-26 16:11 | XMS_ITS | Clinical Summary ---
Author Organization [facility] [place] Address [address] [place] [address] Care Team Providers Care Excellence Manager Name Role Phone Elena Payton Primary Care Provider [phone] Allergies Active Allergy Reactions Criticality Noted Date [...] on file Legal Sex Female 11:43 AM PUBLIC SERVICE ADMINISTRATOR Gender Identity Not on file Sexual Orientation Not on file Last Filed Vital Signs Vital Sign Reading Time Taken Comments Blood Pressure 106/62 01/18/2017 3:02 PM PUBLIC SERVICE ADMINISTRATOR Pulse 75 01/18/2017 3:02 PM PUBLIC SERVICE ADMINISTRATOR Temperature - - Respiratory Rate - - Oxygen Saturation 97% 01/18/2017 3:02 PM PUBLIC SERVICE ADMINISTRATOR Inhaled Oxygen Concentration - - Weight 69.4 kg (153 lb) 01/18/2017 3:02 PM PUBLIC SERVICE ADMINISTRATOR Height 171.5 cm (5' 7.5 ) 01/18/2017 3:02 PM PUBLIC SERVICE ADMINISTRATOR Body Mass Index 23.61 01/18/2017 3:02 PM PUBLIC SERVICE ADMINISTRATOR Plan of Treatment Health Maintenance Due Date [...] MEDICARE PART A AND B Care Teams Excellence Manager Relationship Specialty Start Date End Date Elena Payton PA PCP - General Physician Internet Ecommerce Specialist 01/18/17
--- OUTSIDE RECORDS SUMMARY | 2024-04-26 16:11 | XMS_ITS ---
Author Organization [facility] Address [address] [place] [address] Care Team Providers Care Local Coordinator Name Role Phone Jewel Gonzales Primary Care Provider [facility] Unav ailable Unavailable Allergies [...] 10/04/2023 Encounters Encounter Location Date Provider Diagnosis [address] [address] 10/04/2023 Jewel Gonzales Nutritional counseli ng Z71.3 [...] * Arlen JERNIGAN:1955 ( 68 yo F)Acc No.[id number]:10/04/2023 Patient: Gaetano Dakotah MONSIVAIS Provider: Padilla Gonzales :1955 A ge:68 Y S ex:Female Date:10/04/2023 Address:[address] [place] [address] DORENE, SATYA T [address] 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 She was in [facility] home. for almost 2 months. Now she [...] in April 2021 after he was in snf due to dementia. Her 84 year old [...] T otal Score 0 . S creening: [place] Suicide Severity Rating Scale (LF) D o [...] visits for blood clots, kidney stones,asthma attacks [facility] for indigestion and UTI [facility] for exacerbation of COPD [facility] pelvic [...] Procedure Codes: 3 008F BODY MASS INDEX [id number] MEDICAL NUTRITION, INDIV, [id number] TOBACCO [id number] [facility] VISIT ESTABLISHED PATIENT * Preventive Medicine: Counseling: C are goal follow-up plan: B CO management provided Suma es, Padilla echeverria Normal BMI Follow-up L ifestyle education regarding diet. * Follow Up: 3 Months * * Sign off status: Completed true * Provider: Padilla Gonzales Date: 0 10/04/2023 Generated for Tony bess/Salvatore/Gt on: 0 04/26/2024 04:11 PM CDT History and Physical Notes * HPI (History of Present Illness) Category Sub-Category Detail Notes Category Not es Interim History Was hospitalized Yes , No , No , No , No , No Pt was seen first and then also met with her niece. Had a fall and broke pelvis. She was in [facility]. for almost 2 months. Now she is [...] in April 2021 after he was in snf due to dementia. Her 84 year old [...] Not at all Total Score: 0 Screening Wor[place] Suicide Sev erity Rating Scale (LF) Do [...]
--- OUTSIDE RECORDS SUMMARY | 2024-04-26 16:11 | XMS_ITS | Data Portability ---
Author Organization [facility] Address [address] [facility] [place] [address] Care Team Providers Care Hand Compositor Name Role Phone ALEKSANDER VILLANUEVA Primary Care Provider Unavailab le Assessment No assessment recorded. Plan of Treatment Reminders Order Date Submit Date Provider Last Modified By Organization Details Last Modified Time Details Appointments ANY 15 2024 11:00A M JESSICA Allen Not available Not available Not available Lab urinalysi s, complete [address] [facility], [address] [place] [address], [id number], 04/23/2024 12:29:24 culture, urine [address] [facility], [address] [place] [address], [address], 04/23/2024 12:31:16 hepatic function panel, serum [address] [facility], [address] [place] [address], [address], 04/18/2024 09:20:58 BMP, serum or plasma [address] [facility], [address] [place] [address], [address], 04/23/2024 12:31:15 CBC w/ auto diff [address] [facility], [address] [place] [address], [address], 04/23/2024 12:31:16 lipid panel, serum [address] [facility], [address] [place] [address], [address], 04/23/2024 12:31:15 TSH + free T4, serum [address] [facility], [address] [place] [address], [address], 04/23/2024 12:31:16 urinalysi s, complete [address] [facility], [address] [place] [address], [address], 06/30/2023 11:15:22 culture, urine [address] [facility], [address] [place] [address], [address], 06/30/2023 11:15:22 hepatic function panel, serum 2023 024 [facility], [address] [place] [address], [address], 06/15/2023 17:22:48 BMP, serum or plasma 2023 024 [facility], [address] [place] [address], [address], 06/15/2023 17:22:12 CBC w/ auto diff 2023 024 [facility], [address] [place] [address], [address], 06/15/2023 17:24:07 lipid panel, serum 2023 024 [facility], [address] [place] [address], [address], 06/15/2023 17:24:36 TSH + free T4, serum 2023 024 [facility], [address] [place] [address] [place], [address], 06/15/2023 17:23:09 Referral None recorded. Procedures None recorded. Surgeries None recorded. Imaging DEXA [address] (Imaging), [address], [place], [address], 03/21/2024 16:18:19 Medication Orders nitrofura ntoin monohydra te/macroc rystals 100 mg capsule 2023 024 [email or web address] [id number], [address], [place], [place], [id number], 01/24/2024 12:10:08 Restasis 0.05 % eye drops in a dropperet te 2023 025 JEFF [id number], [address], [place], [place], [id number], 04/17/2024 16:02:08 Patient TargetsNo targets recorded. Patient Instructions Encounter Date Encounter Id Patient Instructions Last Modified By Organization Details Last Modified Time 01/24/2024 [id number] A healthy lifestyle: care instructions [email or web address] Not [...] POC Negat juan miguel Negat juan miguel [facility] EDW Not Available Not Available 04/09/2024 10:56:32 03/23/1903/23/2024 SARS- CoV+S ARS-C oV-2 (COVI D-19) Ag [Pres ence] in Respi rator y syste m speci men by Rapid immun oassa y influenza B Ag, POC Negati ve text: negati ve Influ dmitri B Ag, POC Negat juan miguel Negat juan miguel [facility] Not Available Not Available 04/09/2024 [...] mptiv e Negat juan miguel, Inval id [facility] ED[facility] Not Available Not Available 04/09/2024 10:56:32 03/23/19 25 03/23/2024 SARS- CoV+S ARS-C oV-2 (COVI D-19) Ag [Pres ence] in Respi rator y syste m speci men by Rapid immun oassa y interpretati on and review of laboratory results Normal Not Available Not Available 04/2024 10:56:32 07/26/19 24 07/26/2023 XR, hip + pelvi s, unila teral No observ ation record ed. [address], [address], 07/27/2023 22:59:19 07/27/19 24 07/26/2023 CT, hip + pelvi s, w/o contr ast No observ ation record ed. [address] [address], [place], [address], 07/27/2023 23:00:38 10/31/19 24 10/28/2023 MAMMO , scree barbara, digit al, bilat eral No observ ation record ed. [address], [address], 01/24/2024 11:55:08 02/08/19 25 02/09/2024 imagi ng inter preta tion No observ ation record ed. [email or web address] [facility] [address], [place], [address], 02/09/2024 17:06:32 Result Notes None recorded. Problems Name Problem SNOMED Code Status Onset Date Resolution Date Notes Provider Name and Address Organization Details Recorded Time Fracture of pelvis 44421235 Active 2023 JESSICA Allen Attn: Adriel schaefer,[address] [place], [address], [place] [facility] 4 11:59:01 Long-term drug therapy Active 2023 JESSICA Allen Attn: Adriel schaefer,[address] [place], [address], [place] [facility] 4 11:59:02 Hyperlipidemia 00454364 Active 2023 JESSICA Allen Attn: Adriel schaefer,[address] [place], [address], [place] [facility] 4 11:59:04 Mood disorder 03955165 Active 2023 JESSICA Allen Attn: Adriel schaefer,[address] [place], [address], [place] [facility] 4 11:59:05 Lower urinary tract symptoms 116814807 Active 2023 JESSICA Allen Attn: Adriel schaefer,[address] [place], [address], [place] [facility] 4 11:59:07 Asthma 842122789 Active 2023 JESSICA Allen Attn: Adriel g,[address] [place], [address], [place] [facility] 4 11:59:10 Hypothyroidism 31195641 Active 2023 JESSICA Allen Attn: Adriel schaefer,[address] [place], [address], [place] [facility] 4 11:59:12 Body mass index 25-29 - overweight 159570970 Active 2023 JESSICA Allen Attn: Adriel schaefer,[address] [facility], [place], [address], [place] [facility] 4 11:59:32 Overweight 328541005 Active 2023 JESSICA Allen Attn: Adriel schaefer,[address] [facility], [place], [address], [place] [facility] 4 11:59:33 Body mass index 30+ - obesity 911789610 Active 2024 JESSICA Allen Attn: Adriel schaefer,[address] [facility], [place], [address], [place] - [facility] 5 16:14:35 Problem Notes None recorded. Procedures Surgical History Date Name Laterality Status Provider Name and Address Organization Details Recorded Time Joint Replacement completed Brian Rudolph MA [facility] 05/17/2023 13:17:42 ligation of bilateral fallopian tubes completed Brian Rudolph MA [facility] 05/17/2023 13:18:14 Imaging Results Imaging Date Name Status LastModified by Organization Details LastModified Time 07/26/2023 XR, hip + pelvis, unilateral completed [address], [address], 07/27/2023 22:59:19 07/26/2023 CT, hip + pelvis, w/o contrast completed [address], [address], 07/27/2023 23:00:38 10/28/2023 MAMMO, screening, digital, bilateral completed [address], [address], 01/24/2024 11:55:08 02/09/2024 imaging interpretation completed [address], [address], 02/09/2024 17:06:32 Procedure Notes None recorded. Medical Equipment None Reported. Allergies Allergen ID Allergen Name Allergen Category Reaction Reaction Severity Criticality Documentation Date Start Date Code Code System Note Provider Name and Address Organization Details Recorded Time 843221 Product containin g penicilli n (product) medicatio n Not available Not available Not available 05/17/2023 10071 8001 SNOMED Not Available Not Available Not Available 530557 Bactrim medicatio n Not available Not available Not available 05/17/2023 24975 9 RxNorm Not Available Not Available Not Available 088915 Cipro medicatio n Not available Not available Not available 07/05/2023 69544 3 RxNorm Not Available Not Available Not Available Medications Name Sig Start Date Stop Date Status Note LastModified by Organization Details LastModified Time benztropi ne 0.5 mg tablet TAKE 1 TABLET BY MOUTH EVERY DAY active Not Available Not Available No t Available ofloxacin 0.3 % eye drops 04/17 completed Not Available Not Available Not Available nystatin 100,000 unit/gram topical ointment 01/23 completed Not Available Not Available Not Available prednison e 20 mg tablet 05/16 completed Not Available Not Available Not Available quetiapin e 200 mg tablet 04/17 completed pt has stopped this on her own Not Available Not Available Not Available clonazepa m 1 mg tablet TAKE 1 TABLET BY MOUTH TWICE A DAY active Not Available Not Available No t Available potassium chloride ER 10 mEq tablet,ex tended release Take 1 tablet every day by oral route for 7 days, for swelling take with furosemi de. 2024 active Not Available Not Available Not Avai lable ciproflox acin 500 mg tablet Take 1 tablet every 12 hours by oral route, for UTI. 01/23 completed Not Available Not Available Not Available Macrobid 100 mg capsule Take 1 capsule every 12 hours by oral route. 2024 active Not Available Not Available Not Avai lable risperido ne 2 mg tablet 04/17 completed pt has stopped this on her own [...] completed Not Available Not Available Not Available furosemid e 20 mg tablet Take 1 tablet every day by oral route for 7 days. 2024 active Not Available Not Available Not Avai lable albuterol sulfate HFA 90 mcg/actua tion aerosol inhaler active Not Available Not Available Not Available cyclospor ine 0.05 % eye drops in a dropperet te INSTILL 1 DROP INTO AFFECTED EYE(S) BY OPHTHALM IC ROUTE EVERY 12 HOURS 04/17 completed Not Available Not Available Not Available Advair HFA 115 mcg-21 mcg/actua tion aerosol inhaler Inhale 2 inhalati ons twice a day by inhalati on route. 2024 active Not Available Not Available Not Avai lable quetiapin e 50 mg tablet taken at [facility] active Not Available Not Available No t Available Breo Ellipta 200 mcg-25 mcg/dose powder for inhalatio n 1 inhalati on daily as directed 2024 active Not Available Not Available Not Avai lable Paxlovid 300 mg (150 mg x 2)-100 [...] 4 168.28 cm 18 /min 28.8 kg/m2 03659.6 3 g 97 % 97 % 60 /min 126 mm[Hg] 82 mm[Hg] Brian Rudolph MA [place] - [facility] 4 11:34:44 Date Recorded Body height Oxygen saturation Oxygen saturation in Arterial blood by Pulse oximetry Heart rate Body mass index (BMI) Body weight Respiratory rate Systolic blood pressure Diastolic blood pressure Provider Name and Address Organization Details Last Updated DateTime 4 168.28 cm 97 % 97 % 76 /min 29.2 kg/m2 74864.8 1 g 18 /min 128 mm[Hg] 80 mm[Hg] Brian Rudolph MA [facility] 4 11:52:04 Date Recorded Systolic blood pressure Diastolic blood pressure Provider Name and Address Organization Details Last Updated DateTime 01/24/2024 120 mm[Hg] 80 mm[Hg] JESSICA Allen Attn: Accounting, [place], [address], [facility] 01/24/2024 12:09:23 Date Recorded Body height Body mass index (BMI) Body weight Heart rate Oxygen saturation Oxygen saturation in Arterial blood by Pulse oximetry Body temperature Systolic blood pressure Diastolic blood pressure Provider Name and Address Organization Details Last Updated DateTime 168.28 cm 31.3 kg/m2 46338.8 7 g 100 /min 99 % 99 % 98.5 [degF] 122 mm[Hg] 80 mm[Hg] Frances Dominguez MA [facility] 5 15:47:56 Date Recorded Respiratory rate Systolic blood pressure Diastolic blood pressure Provider Name and Address Organization Details Last Updated DateTime 04/17/2024 16 /min 110 mm[Hg] 80 mm[Hg] JESSICA Allen Attn: Accounting, [address] [place], [address], [facility] 04/17/2024 16:15:27 Social History Question Answer Notes LastModified by Organizat ion Details LastModified Time Tobacco Smoking Status Never Smoker Brian Rudolph MA [facility], [facility] 01/24/2024 11:49:21 Do You Have An [...] Have You Had Close Contact With A [facility] While That Case Was Ill? No Information not available 05/17/2023 In The 14 Days Before Symptom Onset, Have You Had Close Contact With A Person Who Is Under Investigation For COVID-19 While That Person Was Ill? No Information not available 05/17/2023 Have You Been To An Area Known To Be High Risk For COVID-19? No Information not available 05/17/2023 Are You Currently Employed? No Information not available 04/17/2024 Are You Deaf Or Do You Have Serious Difficulty Hearing? No Information not available 01/24/2024 What Type Of Diet Are You Following? REGULAR Information not available 05/17/2023 Are There Any Guns Present In Your Home? No Information not available 05/17/2023 What Was The Date Of Your Most Recent Tobacco Screening? 04/17/2024 Information not available 04/17/2024 What Is Your Relationship Status? Single Information not available 04/17/2024 Do You Use Your Seat Belt Or [...] yourself? Yes Information n ot available 01/24/2024 What is your exercise level? None Information not available 04/17/2024 Mental Status None recorded. Family History Relationship [...] Skin Problems N Anemia Y Heart Attack (DE) N Anxiety Disorder Y Diabetes N Muscle, Joint, or Bone Problems N Seizures/Epilepsy N Acid Reflux (GERD) N Cancer N Stroke N Asthma Y Allergies N High Cholesterol N Hepatitis N Liver Disease N Headaches N Heart Failure N Osteoporosis N Gynecological History Statement/Question Response Menses Monthly N If Post Menopausal, Age at Menopause 33 Current Control Method Menopause Obstetrics History GPAL:G [...] PF, 30 mcg/0.3 mL dose 04/06/2020 completed ARMANDO [place], [place] [facility] 01/24/2024 11:49:45 COVID-19, mRNA, LNP-S, PF, vashti-sucrose, 30 mcg/0.3 mL 12/14/2022 completed ARMAND[place] [facility] 01/24/2024 11:49:45 influenza, unspecified formulation 05/10/2011 completed Brian Rudolph [place] [facility] 01/24/2024 11:49:45 Tdap 09/21/2012 completed ARMAND[place] [facility] 01/24/2024 11:49:45 Tdap 09/22/2020 gail Rudolph [place] [facility] 01/24/2024 11:49:45 DTP 09/21/2012 completed ARMANDO [place] [facility] 01/24/2024 11:49:45 pneumococcal, unspecified formulation 05/10/2011 gail Rudolph MA [facility] - [facility] 01/24/2024 11:49:45 Influenza, split virus, quadrivalent, PF 11/21/2020 completed Brian Rudolph MA [facility] - [facility] 01/24/2024 11:49:45 Past Encounters Encounter ID Performer Location Encounter Start Date Encounter Closed Date Diagnosis/Indication Diagnosis SNOMED-CT Code Diagnosis ICD10 Code Diagnosis Note [id number] JESSICA Allen [facility] [employer] [address] [place] [address] 05/17/2023 11:19:47 05/17/2023 12:49:10 Hypothyroidism 56759020 E03.9 Stable on levothyrox ine 50mcg daily and due for updated TFT panel. Asthma 062488554 J45.90 9 pt is currently stable with asthma on advair hfa 115mcg /21mcg Cholesterol screening 27 2905929 Z13.220 fasting lipids due. Long-term drug therapy 577987599 Z79.899 routine bmp, LFT, and CBC due. Dry eyes 327345712 H04.1 23 Rx trial of restasis eye drops as directed. she should also see her eye doctor. Lower urin shadi tract symptoms 444444058 R39.9 pt c/o of urinary frequency and some mild dysuria. start macrobid 100mg bid course x 7 days and then check UA w/cx after. Mood disorder 81153314 F 39 exact DSM IV diagnosis is not known to this provider, but patient is on quetiapine , citalopram , and risperidon e from psychiatry . [id number] JESSICA Allen [facility] [address] [place] [address] 01/24/2024 11:44:31 01/24/2024 12:18:41 Hypothyroidism 02702720 E03.9 Stable on levothyrox ine 50mcg daily and due for updated TFT panel. Asthma 006725276 J45.90 9 pt is currently stable with asthma on advair hfa 115mcg /21mcg, asthma is stable at this time Lower urin shadi tract symptoms 921059747 R39.9 pt c/o of urinary frequency and frequent UTIs. We will check a routine culture with urine Mood disorder 71162587 F 39 exact DSM IV diagnosis is not known to this provider, but patient is on quetiapine , citalopram , and risperidon e from psychiatry . Long-term drug therapy 590482624 Z79.899 routine bmp, LFT, and CBC due. Fracture of pelvis 35[address] 009 S32.9XXA History of fracture of pelvis this year. We will send her for a DEXA scan that is due Hyperlipidemia 34588952 E78.5 Fasting lipid panel is due Body mass index 25-29 - overweight 252526149 Z68.29 bmi 29.2 Overweight 068872030 E66 .3 discussed healthy diet, exercise, controllin g carbohydra mariam and added sugars in the diet [id number] JESSICA Allen [facility] [address] [place] [address] 04/17/2024 15:08:03 04/17/2024 16:21:24 Body mass index 30+ - obesity 094734028 Z68.31 Chronic ob structive pulmonary disease 84896489 J44.9 Bilateral lower leg edema 566629493 R60.0 Urinary tr act infectious disease 06582858 N39.0 Obesity 160732214 E66.9 Health Concerns Section Related Observation LastModified by Organization Detai ls LastModified Time None Recorded Concern Status LastModified by Organization Details LastModified Time None Recorded Advance Directives Directive Y: Payers Encounter Date Sequence Insurance Name Policy Number Policy Oliveira Covered Member ID Oliveira Member ID Guarantor Name 05/17/2023 2 [place] WHEN [place]ARE OR MEDICARE REPLACEMENT PRIMARY) Dakotah Jernigan [id number] Dakotah Jernigan 05/17/2023 1 [place] Dakotah Jernigan [id number] Dakotah Jernigan 01/24/2024 2 [place] OR MEDICARE REPLACEMENT PRIMARY) Dakotah Jernigan [id number] Dakotah Jernigan 01/24/2024 1 [place] Dakotah Jernigan [id number] Dakotah Jernigan Notes Date Note Type Note [...] weather related. JESSICA Allen Attn: Accounting, [address] [place], [address], [facility] 06/05/2023 15:26:41 01/24/20 24 text/htm l Asthma [...] DEXA scan JESSICA Allen Attn: Accounting, [address] [place], [address], [facility] 02/07/2024 12:21:58 OBGyn Episode No OBEpisode recorded.
== END 2024-04-26 16:04 | disposition home or self-care (01) ==
PROVIDERS: PCP Physician Assistant; Visit Provider Physician Assistant
DX: R60.0 Localized edema (principal); J44.9 Chronic obstructive pulmonary disease, unspecified
CPT/HCPCS: 71046; 93970

== ENCOUNTER 2024-05-03 07:12 | Outpatient (CLI) | payer MEDICARE, MEDICAID, SELFPAY ==
--- NOTE | 2024-05-03 | ECHO_ITS ---
Patient Info Name: Dakotah Jernigan Age: 68 years : 1955 Gender: Female Ht: 67 in Wt: 192 lbs BSA: 2.05 m2 HR: 57 bpm BP: 130 / 89 mmHg Technical Quality: Fair Exam Date: 05/03/2024 8:08 AM Exam Location: Echo Lab Patient Status: Outpatient Admit Date: 05/03/2024 Staff Ordering Physician: MarleyElena PA-C Adult Education Manager: Dilcia Whyte RDCS Attending Provider: Elena Redman PA-C Exam Type: CA echo doppler color flow Study Info Indications R60.0 - Localized edema Complete two-dimensional, color flow and Doppler transthoracic echocardiogram is performed. Summary 1. Complete two-dimensional, color flow and Doppler transthoracic echocardiogram is performed. 2. There is normal biventricular size and systolic function. Left Ventricle The left ventricle is normal in size and systolic function. There is concentric left ventricular remodeling. The left ventricular ejection fraction is visually estimated to be 65-70%. There are no significant valvular abnormalities. Right Ventricle The right ventricle is normal in size and systolic function. Left Atria The left atrium is normal size. Right Atria The right atrium is normal size. Atrial Septum The atrial septum is normal. Aortic Valve The aortic valve is trileaflet and opens well. There is no aortic regurgitation. Pulmonic Valve The pulmonic valve is not well visualized. There is trace pulmonic valve regurgitation. Mitral Valve The mitral valve is normal. There is no mitral regurgitation. Tricuspid Valve The tricuspid valve is normal. There is trace tricuspid regurgitation. Pericardium/Pleural There is trace pericardial effusion. Inferior Vena Cava Normal inferior vena cava with >50% collapse upon inspiration consistent with normal right atrial pressure, 3 mmHg. Normal inferior vena cava with >50% collapse upon inspiration consistent with normal right atrial pressure, 3 mmHg. Aorta The aortic root at the level of the sinus of Valsalva measures 2.6 cm in diameter. Left Ventricular Outflow Tract Name Value Normal LVOT 2D LVOT Diameter 1.8 cm LVOT Doppler LVOT Peak Gradient 4 mmHg LVOT Mean Gradient 2 mmHg LVOT VTI 20 cm LVOT VTI/AV VTI Ratio 0.5 LVOT Stroke Volume 49 ml LVOT CO 10.1 l/min LVOT CI 4.9 l/min/m2 Pulmonic Valve Name Value Normal PV Doppler PV Peak Gradient 4 mmHg Mitral Valve Name Value Normal MV Doppler MV Decel Grainger 272 cm/s2 MV PHT 74 ms MV Area (PHT) 3.0 cm2 4.0-5.0 MV Diastolic Function MV E Peak Velocity 69 cm/s MV A Peak Velocity 76 cm/s MV E/A 0.9 MV Decel Time 255 ms MV Annular TDI MV E/e' (Septal) 8.6 <=8.0 MV E/e' (Lateral) 7.6 <=8.0 MV E/e' (Average) 8.1 Tricuspid Valve Name Value Normal TV Regurgitation Doppler TR Peak Velocity 227 cm/s TR Peak Gradient 21 mmHg Estimated PAP/RSVP RA Pressure 3 mmHg <=5 PA Systolic Pressure 24 mmHg <36 RV Systolic Pressure 24 mmHg <36 Aorta Name Value Normal Ascending Aorta Ao Root Diameter (MM) 2.6 cm Ao Root Diam Index (MM) 1.3 cm/m2 Aortic Valve Name Value Normal AV Doppler AV Peak Velocity 169 cm/s AV Peak Gradient 11 mmHg AV Mean Gradient 7 mmHg AV VTI 41 cm AV Area (Cont Eq VTI) 1.2 cm2 >=3.0 AV Area (Cont Eq Fidencio) 1.4 cm2 AV Regurgitation 2D LVOT Area 2.4 cm2 Ventricles Name Value Normal LV Dimensions 2D/MM IVS Diastolic Thickness (2D) 1.1 cm 0.6-1.0 LVID Diastole (2D) 3.9 cm 3.8-5.2 LVIW Diastolic Thickness (2D) 1.1 cm 0.6-0.9 LVID Systole (2D) 2.6 cm 2.2-3.5 LVOT Diameter 1.8 cm LV Mass (2D Cubed) 135.87 g 67.00-162.00 LV Mass Index (2D Cubed) 66 g/m2 43-95 Relative Wall Thickness (2D) 0.54 LV Fractional Shortening/Ejection Fraction 2D/MM LV Fractional Shortening (2D) 33 % 27-45 LV EF (2D Teicholz) 62 % 54-74 LV Diastolic Volume (4C MOD) 60 ml LV EF (4C MOD) 79 % LV Diastolic Volume (2C MOD) 58 ml LV EF (2C MOD) 74 % LV Diastolic Volume (BP MOD) 59 ml 46-106 LV Diastolic Volume Index (BP MOD) 29 ml/m2 29-61 LV Systolic Volume (BP MOD) 14 ml 14-42 LV Systolic Volume Index (BP MOD) 7 ml/m2 8-24 LV EF (BP MOD) 76 % 54-74 LV Diastolic Length (4C) 6.8 cm LV Systolic Length (4C) 5.1 cm LV Stroke Volume (4C MOD) 48 ml RV Dimensions 2D/MM RVID Diastole (2D) 3.7 cm 2.5-3.5 Atria Name Value Normal LA Dimensions LA Dimension (MM) 3.6 cm 2.7-3.8 LA Volume (4C A-L) 39 ml LA Volume (BP A-L) 45 ml RA Dimensions RA Area (4C) 11.4 cm2 <=18.0 Report Signatures
--- OUTSIDE RECORDS SUMMARY | 2024-05-03 07:15 | XMS_ITS | Referral Summary ---
Author Organization [facility] [address] Address [address] [place] [address] Care Team Providers Care Wheel Worker Name Role Phone Elena Payton Primary Care Pr ovider Encounters Date Type Department Care Team Description 03/23/2024 3:25 PM MULTI SENSOR OPERATOR Ancillary Procedure [facility] Imaging at [address] [address] Acute cough 03/23/2024 3:00 PM MULTI SENSOR OPERATOR Office Visit [facility] Convenient Care at [address] [address] Lucrecia Jorgensen NP Lower respiratory [...] (OptiChamber Ivette Lg Mask) spacer OptiChamber Ivette [facility] with Large Mask Active albuterol 2.5 [...] for 4 days. 6 tablet 5 Active Active Problems Problem Noted Date Diagnosed [...] on file Legal Sex Female 6:39 AM MULTI SENSOR OPERATOR Gender Identity Not on file Sexual Orientation Not on file Last Filed Vital Signs Vital Sign Reading Time Taken Comments Blood Pressure 104/71 03/23/2024 3:02 PM MULTI SENSOR OPERATOR Pulse 85 03/23/2024 3:02 PM MULTI SENSOR OPERATOR Temperature 36.8 C (98.3 F) 03/23/2024 3:02 PM MULTI SENSOR OPERATOR Respiratory Rate 20 03/23/2024 3:02 PM MULTI SENSOR OPERATOR Oxygen Saturation 95% 03/23/2024 3:02 PM MULTI SENSOR OPERATOR Inhaled Oxygen Concentration - - Weight 85.7 kg (189 lb) 03/23/2024 3:02 PM MULTI SENSOR OPERATOR Height 170.2 cm (5' 7.01 ) 02/04/2023 9:27 AM CS T Body Mass Index 29.59 02/04/2023 9:27 AM MULTI SENSOR OPERATOR Plan of Treatment Not on file Procedures Procedure Name Priority Date/Time Associated Diagnosis Comments POC INFLUENZA A/B, COVID-19 ANTIGEN Routine 03/23/2024 3:36 PM MULTI SENSOR OPERATOR Lower respiratory infection (e.g., bronchitis, pneumonia, pneumonitis, pulmonitis) XR CHEST PA LATERAL 2 VIEWS Routine 03/23/2024 3:26 PM MULTI SENSOR OPERATOR Acute cough SCREENING MAMMOGRAM BILATERAL W YOSEF Routine 06/22/2016 9:57 AM CDT from Last 3 Months or Most Recently Relevant to Health Maintenance Results * POC Influenza A/B, COVID-19 antigen (03/23/2024 3:36 PM MULTI SENSOR OPERATOR) Influenza A Ag, POC Negative Negative [facility] Influenza B Ag, POC Negative Negative [facility] COVID-19 Ag POC Presumptive Negative Presumptive Negative, Invalid [facility] Nasal 03/23/2024 3:36 PM MULTI SENSOR OPERATOR us Lucrecia Jorgensen NP POINT OF CARE TEST ORDERABLES Final Result [facility] CC EDW [address] [place] [address] * XR Chest PA Lateral 2 Views (03/23/2024 3:26 PM MULTI SENSOR OPERATOR) Anatomical Region Laterality Modality Body, Chest N/A Digital Radiogra phy 03/23/2024 3:44 PM MULTI SENSOR OPERATOR Narrative 03/23/2024 3:51 PM MULTI SENSOR OPERATOR EXAM DESCRIPTION: XR CHEST PA LATERAL 2 [...] Abdifatah Josue M.D. LB T: Report ID: [id number] Reading Location: [place] [address] Procedure Note Abdifatah Josue MD - 03/23/2024 [...] Abdifatah Josue M.D. LB T: Report ID: [id number] Reading Location: [id number] us Lucrecia Jorgensen WIRE WINDING MACHINE OPERATOR IMG XR PROCEDURES Final Result * Screening [...] signed by: Edy Olsen M.D., md/:06/22/2016 11:03:24 Generator Rebuilder: Jaz Oneill RT(Francisco)(Rey), [facility] letter sent: Normal Exam Reading location: [...] 04/18/2013 mammogram, and 03/24/2012 mammogram - [facility]. BREAST TISSUE: The tissue of both [...] mammogram, 04/18/2013 mammogram, and 03/24/2012 mammogram - [facility]. BREAST TISSUE: The tissue of both [...] signed by: Edy Olsen M.D., md/:06/22/2016 11:03:24 Generator Rebuilder: Jaz BARAJAS)(M), [facility] letter sent: Normal Exam Reading location: BI-RADS: 2 Benign [EOD] us Elena LOPEZ IMG MAMMO PROCED URES Final Result from Last 3 Months or Most Recently Relevant to Health Maintenance Insurance * Guarantor: Dakotah Jernigan Account Type Relation to Patient Date of Phone Billing Address Personal/Family Self 1955 [address] [place] [address] [employer] MEDICARE * Guarantor: Dakotah Jernigan Account Type Relation to Patient Date of Phone Billing Address Personal/Family Self 1955 [address] [place] [address] MEDICARE [facility] Care Teams Wheel Worker Relationship Specialty Start Date End Date Elena Payton PA PCP - General Physician Manager Trade 09/11/18
--- OUTSIDE RECORDS SUMMARY | 2024-05-03 07:15 | XMS_ITS ---
Author Organization [facility] Address [address] [place] [address] Care Team Providers Care Manager Hospice Name Role Phone Jewel Gonzales Primary Care Provider [facility] Unav ailable Unavailable Allergies Allergen [...] Are you a former smoker Vital Signs Oximetry 94 % 12/27/2023 Respiratory Rate 16 /min 12/27/2023 Heart Rate 72 /min 12/27/2023 Blood pressure systolic 118 mm Hg 12/27/19 24 Blood pressure diastolic 78 mm Hg 024 Weight 176 lbs 12/27/2023 Encounters Encounter Location Date Provider Diagnosis [address] [place] [address] 12/27/2023 Jewel Gonzales Anxiety F41.9 and Bipolar [...] * Noam JERNIGANB:1955 ( 68 yo F)Acc No.[id number]:12/27/2023 Patient: Gaetano MONSIVAIS Dakotah Provider: Padilla Gonzales :1955 A ge:68 Y S ex:Female Date:12/27/2023 Address:[address] [place], [place] [id number] Check In:01:16 PM COMB CAPPER Subjective: * Chief Complaints: * P sych [...] fall and broke pelvis and was in [facility] long term for almost 2 months. Now she is [...] in April 2021 after he was in long term due to dementia. Her 86 year old [...] T otal Score 0 . S creening: Hodgeman Suicide Severity Rating Scale (LF) D o [...] attacks [facility] Mayroken pelvic [...] * Treatment: * Procedure Codes: G 0467 [facility] VISIT ESTABLISHED PATIENT * Follow Up: 3 Months * * CAPPER Sign off status: Completed true * Provider: Padilla Gonzales Date: 02/25/2023 Generated for Tony bess/Salvatore/Gt on: 0 05/03/2024 07:15 AM CDT History and Physical Notes * HPI (History of Present Illness) Category Sub-Category Detail Notes Category Not es Interim History Was hospitalized Yes , Yes , No , No , No , No , No Pt reports doing better. Sheisdone with walker and can walk good without it. Had a fall and broke pelvis and was in [facility] long term for almost 2 months. Now she is [...] in April 2021 after he was in long term due to dementia. Her 86 year old [...] Not at all Total Score: 0 Screening Hodgeman Suicide Sev erity Rating Scale (LF) Do [...]
--- OUTSIDE RECORDS SUMMARY | 2024-05-03 07:15 | XMS_ITS | Clinical Summary ---
Author Organization [facility] [address] Address [address] [place] [address] Care Team Providers Care Mat Weaver Name Role Phone Elena Payton Primary Care Pr ovider Allergies Active Allergy Reactions Criticality Noted Date Comments Codeine Itching,Unknown Low 12/28/2016 Penicillins Fever,Shortness of breath,Unknown High 12/28/2016 Sulfa (Sulfonamide Antibiotics) Itching,Nausea And Vomiting,Unknown Medium 12/28/2016 Sulfamethoxazole-Trimethopri m Itching,Nausea And Vomiting,Unknown Low 12/28/2016 Unclassified Drug Unknown 12/28/2016 Medications inhalat.spacing dev,large mask (OptiCSequoia Communicationsber Ivette Lg Mask) spacer [facility] with Large Mask Active albuterol 2.5 mg [...] Department Care Team Description 03/23/2024 3:25 PM FLIGHT NURSE Ancillary Procedure [facility] Imaging at [address] [address] Acute cough 03/23/2024 3:00 PM FLIGHT NURSE Office Visit [facility] Convenient Care at [address] [address] Lucrecia Jorgensen NP Lower respiratory infection (e.g., bronchitis, pneumonia, pneumonitis, pulmonitis) (Primary Dx) from Last 3 Months Social History Tobacco Use Types Packs/Day Years Used Date Smoking Tobacco: Former Cigarettes Tobacco Cessation:Counseling Given: Not Answered Comments Unknown Sex and Gender Information Value Date Recorded Sex Assigned at Not on file Legal Sex Female 6:39 AM FLIGHT NURSE Gender Identity Not on file Sexual Orientation Not on file Obstetrics History Last Filed Vital Signs Vital Sign Reading Time Taken Comments Blood Pressure 104/71 03/23/2024 3:02 PM FLIGHT NURSE Pulse 85 03/23/2024 3:02 PM FLIGHT NURSE Temperature 36.8 C (98.3 F) 03/23/2024 3:02 PM FLIGHT NURSE Respiratory Rate 20 03/23/2024 3:02 PM FLIGHT NURSE Oxygen Saturation 95% 03/23/2024 3:02 PM FLIGHT NURSE Inhaled Oxygen Concentration - - Weight 85.7 kg (189 lb) 03/23/2024 3:02 PM FLIGHT NURSE Height 170.2 cm (5' 7.01 ) 02/04/2023 9:27 AM CS T Body Mass Index 29.59 02/04/2023 9:27 AM FLIGHT NURSE Plan of Treatment Health Maintenance Due Date [...] A/B, COVID-19 ANTIGEN Routine 03/23/2024 3:36 PM FLIGHT NURSE Lower respiratory infection (e.g., bronchitis, pneumonia, pneumonitis, pulmonitis) XR CHEST PA LATERAL 2 VIEWS Routine 03/23/2024 3:26 PM FLIGHT NURSE Acute cough SCREENING MAMMOGRAM BILATERAL W YOSEF Routine 06/22/2016 9:57 AM CDT from Last 3 Months or Most Recently Relevant to Health Maintenance Results * POC Influenza A/B, COVID-19 antigen (03/23/2024 3:36 PM FLIGHT NURSE) Influenza A Ag, POC Negative Negative [facility] Influenza B Ag, POC Negative Negative [facility] COVID-19 Ag POC Presumptive Negative Presumptive Negative, Invalid [facility] Nasal 03/23/2024 3:36 PM FLIGHT NURSE Lucrecia Jorgensen NP POINT OF CARE TEST ORDERABLES Final Result Performing Organization Address City/State/[facility] Co de Phone Number [facility] EDW [address] [place] [address] * XR Chest PA Lateral 2 Views (03/23/2024 3:26 PM FLIGHT NURSE) Anatomical Region Laterality Modality Body, Chest N/A Digital Radiogra phy 03/23/2024 3:44 PM FLIGHT NURSE Narrative 03/23/2024 3:51 PM FLIGHT NURSE EXAM DESCRIPTION: XR CHEST PA LATERAL 2 [...] Abdifatah Josue M.D. LB T: Report ID: [id number] Reading Location: [id number] Procedure Note Abdifatah Josue MD - 03/23/2024 [...] Abdifatah Josue M.D. LB T: Report ID: [id number] Reading Location: [id number] Lucrecia Jorgensen HELP DESK ANALYST IMG XR PROCEDURES Final Result * Screening [...] signed by: Edy Olsen M.D., md/:06/22/2016 11:03:24 Woods Overseer: Jaz BARAJAS)(eRy), [facility] letter sent: Normal Exam Reading location: [...] mammogram, 04/18/2013 mammogram, and 03/24/2012 mammogram - [facility]. BREAST TISSUE: The tissue of both [...] mammogram, 04/18/2013 mammogram, and 03/24/2012 mammogram - [facility]. BREAST TISSUE: The tissue of both [...] signed by: Edy Olsen M.D., md/:06/22/2016 11:03:24 Woods Overseer: Jaz BARAJAS)(M), [facility] letter sent: Normal Exam Reading location: BI-RADS: 2 Benign [EOD] us Elena LOPEZ IMG MAMMO PROCED URES Final Result from Last 3 Months or Most Recently Relevant to Health Maintenance Insurance MEDICARE MEDICARE [employer] Care Teams Mat Weaver Relationship Specialty Start Date End Date Elena Payton PA PCP - General Physician Manager Enrollment 09/11/18
--- OUTSIDE RECORDS SUMMARY | 2024-05-03 07:16 | XMS_ITS | Clinical Summary ---
Author Organization [facility] Address [address] [place] [address] Care Team Providers Care Beef Cattle Grazier Name Role Phone Elena Payton Primary Care Provider [phone] Robbin Rodgers MD Unavailable Allergies Active Allergy [...] vein thrombosis (DVT) o f lower extremity ([facility]) 01/11/2017 Family History Medical History Relation [...] Comments Blood Pressure 104/69 01/06/2017 8:32 AM HIGH RISK CASE MANAGER Pulse 81 01/06/2017 8:32 AM HIGH RISK CASE MANAGER Temperature - - Respiratory Rate - - Oxygen Saturation - - Inhaled Oxygen Concentration - - Weight 69.9 kg (154 lb) 01/06/2017 8:32 AM HIGH RISK CASE MANAGER Height 170.2 cm (5' 7 ) 01/06/2017 8:32 AM HIGH RISK CASE MANAGER Body Mass Index 24.12 01/06/2017 8:32 AM HIGH RISK CASE MANAGER Plan of Treatment Health Maintenance Due Date [...] this topic Insurance MEDICAID MEDICARE Care Teams Beef Cattle Grazier Relationship Specialty Start Date End Date Elena Payton PA [address] [place] [address] PCP - General 12/28/16 Robbin Rodgers MD [place] [id number] [place] [address] Referring Physician VASCULAR SURGERY 12/28/16
--- OUTSIDE RECORDS SUMMARY | 2024-05-03 07:16 | XMS_ITS ---
Author Organization [facility] Address [address] [place] [address] Care Team Providers Care Population Health Coach Name Role Phone Jewel Gonzales Primary Care Provider [facility] Unav ailable Unavailable Allergies [...] 03/20/2024 Encounters Encounter Location Date Provider Diagnosis [address] [place] [address] 03/20/2024 Jewel Gonzales Nutritional counseli ng Z71.3 [...] * Arlen JERNIGAN:1955 ( 68 yo F)Acc No.[id number]:03/20/2024 Patient: Dakotah DENG Provider: Padilla Gonzales :1955 A ge:68 Y S ex:Female Date:03/20/2024 Address:[address] [place] [address] [address], [address], [facility] Check In:12:52 PM X RAY CONTROL EQUIPMENT REPAIRER Subjective: * Chief Complaints: * P sych F/[facility] Interpretation and Follow UP PlanBMI over 25 [...] fall and broke pelvis and was in [facility] senior care for almost 2 months. Now she is [...] in April 2021 after he was in senior care due to dementia. Her 86 year old [...] I nterpretation M ild Depression. S creening: Huguenot Suicide Severity Rating Scale (LF) D o [...] visits for blood clots, kidney stones,asthma attacks [facility] Mayroken pelvic [...] Procedure Codes: 3 008F BODY MASS INDEX [id number] MEDICAL NUTRITION, INDIV, [id number] TOBACCO [id number] [facility] VISIT ESTABLISHED PATIENT * Preventive Medicine: Counseling: C are goal follow-up plan: B AR management provided Padilla Peterson Normal BMI Follow-up L ifestyle education regarding diet. * Follow Up: 3 Months * * X RAY CONTROL EQUIPMENT REPAIRER Sign off status: Completed true * Provider: Padilla Gonzales Date: 0 03/20/2024 Generated for Madhurii shahriar/Salvatore/Nigelsmbrett on: 0 05/03/2024 07:16 AM CDT History and Physical Notes * HPI (History of Present Illness) Category Sub-Category Detail Notes Category Not es Interim History Was hospitalized Yes , Yes , No , No , No , No , No Pt reports doing alright. Still using walker. Had a fall and broke pelvis and was in [facility] home for almost 2 months. Now [...] in April 2021 after he was in senior care due to dementia. Her 86 year old [...] Total Score: 5 Interpretation: Mild Depression Screening Huguenot Suicide Sev erity Rating Scale (LF) Do [...]
--- OUTSIDE RECORDS SUMMARY | 2024-05-03 07:16 | XMS_ITS | Encounter Summary ---
Author Organization [facility] Address [address] [place] [address] Care Team Providers Care Patrol Sergeant Name Role Phone Elena Payton Primary Care Provider [phone] Robbin Rodgers MD Unavailable Encounter Details Date Type Department Care Team (Latest Contact Info) Description 12/13/2017 Abstract [facility] Cayetano Day MD Social History [...] on filedocumented in this encounter Care Teams Patrol Sergeant Relationship Specialty Start Date End Date Elena Payton PA [facility] [address] [place] [address] PCP - General 12/28/16 Robbin Rodgers MD [address] [address] Referring Physician VASCULAR SURGERY 12/28/16 documented as of this encounter
--- OUTSIDE RECORDS SUMMARY | 2024-05-03 07:16 | XMS_ITS | Patient Health Record ---
Author Organization [facility] Address [address] [place] [address] Care Team Providers Care Foot Roentgenologist Name Role Phone Jewel Gonzales Primary Care Provider [phone] [facility] Services Unav ailable Unavailable Allergies Allergen [...] Status W/U Status Risk Notes Problem Anxiety (19544885) Anxiety (F41.9) 11/06/2021 Active confirmed Problem Bipolar 1 disorder (200067653) Bipolar 1 disorder (F31.9) 11/06/2021 Active confirmed Vital Signs Heart Rate 79 /min 03/20/2024 Respiratory Rate 16 /min 03/20/2024 Blood pressure diastolic 82 mm Hg 03/20/2024 Oximetry 97 % 03/20/2024 Height 67 in 03/20/2024 Blood pressure systolic 126 mm Hg 03/20/2024 Weight 181.8 lbs 03/20/2024 BMI 28.47 kg/m2 03/20/2024 Encounters Encounter Location Date Provider Diagnosis [address] [address] 06/14/2023 Arif Habib Anxiety F41.9 and Bipolar [address] disorder [address] [address] 10/04/2023 Arif Habib Nutritional counseli ng Z71.3 ; Anxiety F41.9 and Bipolar [address] disorder [address] [address] 12/27/2023 Arif Habib Anxiety F41.9 and Bipolar 1 disorder F31.[address] [address] 03/20/2024 Arif Habib Nutritional counseli ng Z71.3 ; Anxiety F41.9 and Bipolar 1 disorder F31.[address] [address] 08/18/2023 Arif Habib Assessments Encounter Date Diagnosis [...] Date MEDICARE PART A [address] [place] [address] [id number] Dakotah Jernigan Self - patient is the insured 5 [employer] Medicare [address] [place] [address] [id number] Dakotah Jernigan Self - patient is the insured 1 1 MEDICAID [address] [place] [address] [id number] Dakotah Jernigan Self - patient is the insured 0 [facility] Medicare Assure [address] [address] [place] [address] [id number] Dakotah Jernigan Self - patient is the [...]
--- OUTSIDE RECORDS SUMMARY | 2024-05-03 07:17 | XMS_ITS | Data Portability ---
Author Organization [facility] [employer], Main Office Address [address] [place] [address] Care Team Providers Care Tank Assembler Name Role Phone ALEKSANDER VILLANUEVA Primary Care Provider [phone] ALEKSANDER VILLANUEVA Referring Provider Assessment Encounter Date Assessment Date Assessment LastModified by Organization Details LastModified Time 04/19/2024 04/19/2024 This note is dictated and transcribed by [employer]. Soccer Ball Assembler variances may occur. Despite proofreading, typographical errors may occur. Occasional wrong-word or '[id number]' substitutions may have occurred due to the inherent limitations of voice recording. Read the chart carefully and recognize, using context, where substitutions have occurred. [email or web address] Not available 04/19/2024 12:00:51 Plan of Treatment Reminders Order Date Submit Date Provider Last Modified By Organization Details Last Modified Time Details Appointments None recorded. Lab vitamin D, 25-hydroxy, total, serum 2022 [email or web address] [place] [address] (Lab), [address] [place] [address], [address], 3 12:43:40 HbA1c (hemoglobin A1c), blood 2022 [email or web address] [place] [address] (Lab), [address] [place] [address], [address], 3 12:43:39 BMP, serum or plasma 2022 [email or web address] [place] [address] (Lab), [address] [place] [address], [address], 3 12:43:39 CBC w/ auto diff [address] (Lab), [address] [place] [address], [address], 3 12:43:39 hepatic function panel, serum [address] (Lab), [address] [place] [address], [address], 3 12:43:40 lipid panel, serum [address] (Lab), [address] [place] [address], [address], 3 12:43:40 noninvasive colorectal cancer DNA + occult blood screening, QL, stool 2022 023 [email or web address] [address] [facility] (Cologuard Orders Only), [address], [address], [place], [address], 4 14:59:43 urinalysis complete, reflex culture [address] (Lab), [address] [place] [address], [address], 3 12:43:39 T4, free, serum [address] (Lab), [address] [place] [address], [address], 3 12:43:39 TSH, serum or plasma 2022 023 [facility] (Lab), [address] [place] [address], [address], 3 14:26:30 Referral floor covering contractor referral 2022 023 JEFF Nico Bowling DPM, [address], [place], [address], 05:01:27 Procedures None recorded. Surgeries None recorded. Imaging MAMMO, screening, digital, bilateral 2022 023 [facility] (Mammography) , [address], [place], [address], 3 16:28:21 Medication Orders loratadine 10 mg tablet 2022 023 [id number], [address], [place], [place], [phone], 17:48:17 Patient TargetsNo targets recorded. Patient InstructionsNo instructions recorded. Reason for Referral Process Control Manager Referral for Unab le to cut own toenails Referring Physician: Aleksander Villanueva, Internal Medicine, Encounter Date: 05/25/2022 Results Created Date Observation Date Name Description Value Unit Range Abnormal Flag Note LastModifiedBy Organization Detail LastModifiedTime 05/25/19 24 05/25/2023 COLOG UARD cologuard result Cancel led - Order d not applic able Not Available [facility] (Cologuard Orders Only) [address], [place], [address], 05/25/2023 10:58:55 08/28/19 21 08/27/2020 US, doppl er, venou s No observ ation record ed. [id number] Not Available 04/07/2022 05:21:49 12/17/19 21 11/20/2020 CT, abdom en + pelvi s, w/ contr ast No observ ation record ed. [id number] [facility] (Imaging) [address], [place], [address], 04/07/2022 05:21:49 12/18/19 21 11/23/2020 CT, angio gram, chest , w/ contr ast No observ ation record ed. MIGRATION. [address] [facility], [place], [address], 04/07/2022 05:21:49 12/18/19 21 11/23/2020 XR, chest , 2 view No observ ation record ed. MIGRATION. [facility] (Imaging) [address] [place] [address], [place], [address], 04/07/2022 05:21:49 04/15/19 22 04/12/2021 XR, chest No observ ation record ed. MIGRATION. [facility] (Imaging) [address] [place] [address], [place], [address], 04/07/2022 05:21:49 04/18/19 22 03/26/2021 US, doppl er, venou s No observ ation record ed. MIGRATION. Not Available 04/07/2022 05:21:49 04/28/19 22 04/27/2021 MAMMO , scree barbara, digit al, bilat eral No observ ation record ed. MIGRATION. Not Available 04/07/2022 05:21:49 06/23/19 22 06/22/2021 CT, abdom en + pelvi s, w/ contr ast No observ ation record ed. MIGRATION. [address] [address], [place], [address], 04/07/2022 05:21:49 10/30/19 22 10/19/2021 US, doppl er, venou s No observ ation record ed. MIGRATION. [address] [facility], [place], [address], 04/07/2022 05:21:49 12/17/19 22 12/15/2021 XR, chest No observ ation record ed. MIGRATION. [facility] (Human Resources) [address] [place] [address], [place], [address], 04/07/2022 05:21:49 07/31/19 23 07/29/2022 MAMMO , scree barbara, digit al, bilat eral No observ ation record ed. [facility] [address], [place], [address], 10/26/2022 18:26:57 12/10/19 23 09/15/2022 XR, foot No observ ation record ed. [email or web address], [place], [address], 12/13/2022 17:13:24 Result Notes None recorded. Problems Name Problem SNOMED Code Status Onset Date Resolution Date Notes Provider Name and Address Organization Details Recorded Time Impacted cerumen of bilateral ears 0046078173621 108 Active 2021 Not Available [facility] [place] [facility] 3 05:13:46 Trimalleol ar fracture 981991270 Active 2018 Not Available [facility] [place] [facility] 3 05:13:46 Trimalleol ar fracture 469576743 Active 2018 Not Available [facility] [place] [facility] 3 05:13:46 Bipolar disorder 36623570 Active Not Available [facility] 3 05:13:46 Blood glucose outside reference range 725976006 Active Not Available [facility] [place] [facility] 3 05:13:46 Chronic urinary tract infection 858798599 Active Not Available [facility] [place] [facility] 3 05:13:46 Elbow joint pain 152773430 Active Not Available [facility] 3 05:13:46 Long-term drug therapy Active 2021 Not Available [facility] 3 05:13:46 Anemia 377293741 Active Not Available [facility] 3 05:13:46 Eruption 351199129 Active Not Available [facility] 3 05:13:46 Cholestero l screening Active 2021 Not Available [facility] 3 05:13:46 Vaginal lesion 237080564 Active Not Available [facility] 3 05:13:46 Lower urinary tract symptoms 060106800 Active 2021 Not Available [facility] [place] [facility] 3 05:13:46 Otitis externa 6827664 Active Not Available [facility] [place] [facility] 3 05:13:46 Pain in left knee Active Not Available [facility] [place] [facility] 3 05:13:47 Major depressive disorder 844176083 Active Not Available [facility] [place] [facility] 3 05:13:47 Impairment of balance 893653733 Active Not Available [facility] [place] [facility] 3 05:13:47 Hypothyroi dism 51801939 Active Not Available [facility] [place] [facility] 3 05:13:47 Hip pain 61127207 Active Not Available [facility] [place] [facility] 3 05:13:47 Wheezing 05055688 Active 2018 Not Available [facility] [place] [facility] 3 05:13:47 Osteoporos is 56176430 Active Not Available [facility] [place] [facility] 3 05:13:47 Otitis media 33237891 Active 2021 Not Available [facility] [place] [facility] 3 05:13:47 Fatigue 34943413 Active Not Available [facility] [place] [facility] 3 05:13:47 Facial paresthesi a 47250575 Active Not Available [facility] [place] [facility] 3 05:13:47 Asthma 493615097 Active 2022 JESSICA Allen [address], [address], [place], [address] , [employer] [facility] [employer] [facility] 3 13:09:04 Hyperlipid emia 41295035 Active 2022 JESSICA Allen [address], [address], [place], [address] , [employer] [facility] [employer] [facility] 3 15:24:04 Seasonal allergic rhinitis 359532785 Active 2022 JESSICA Allen [address], [address], [place], [address] , [employer] [facility] [employer] [facility] 3 17:47:52 Acute urinary tract infection 979561360 Active 2022 JESSICA Allen [address], [address], [place], [address] , [employer] [facility] 3 16:06:55 Dystrophia unguium 93973722 Active 2024 Nico Bowling DPM [address], [address], [place], [address] , [employer] [facility] 5 13:57:56 Bunion 800626518 Active 2024 Nico Bowling DPM [address], [address], [place], [address] , [employer] 13:57:59 Hammer toe 754417794 Active 2024 Nico Bowling DPM [address], [address], [place], [address] , [employer] 5 13:58:28 Pain in toe 804229534 Active 2024 Nico Bowling DPM [address], [address], [place], [address] , [employer] 13:58:41 Problem Notes None recorded. Procedures Surgical History Date Name Laterality Status Provider Name and Address Organization Details Recorded Time 04/20/19 25 Nail Debridement completed Nico Bowling DPM [address], [address], [place], [address], [employer] 04/19/2024 13:57:27 04/09/19 20 Most Recent Bone Density completed Not Available [facility] [place] [facility] 04/07/2022 05:05:19 Tubal Ligation completed Not Available [facility] 04/07/2022 05:05:22 Cholecystectomy completed Not Available [facility] 04/07/2022 05:05:22 Orthopedic Surgery completed Not Available [facility] [place] [facility] 04/07/2022 05:05:22 Imaging Results Imaging Date Name Status LastModified by Organiz [facility] Details LastModified Time 06/22/2021 CT, abdomen + pelvis, w/ contrast completed [id number] [address] [place] [address] [address], [place], [address], 04/07/2022 05:21:49 11/23/2020 CT, angiogram, chest, w/ contrast completed [id number] [address] [facility], [place], [address], 04/07/2022 05:21:49 11/23/2020 XR, chest, 2 view completed [id number] 026 [facility] (Imaging) [address] [place] [address] [address] [facility], [place], [address], 04/07/2022 05:21:49 08/27/2020 US, doppler, venous completed [id number] 026 Information not available 04/07/2022 05:21:49 11/20/2020 CT, abdomen + pelvis, w/ contrast completed [id number] [facility] (Imaging) [address] [place] [address] [address] [facility], [place], [address], 04/07/2022 05:21:49 04/12/2021 XR, chest completed [id number] 026 [facility] (Imaging) [address] [place] [address] [address] [facility], [place], [address], 04/07/2022 05:21:49 03/26/2021 US, doppler, venous completed [id number] 026 Information not available 04/07/2022 05:21:49 04/27/2021 MAMMO, screening, digital, bilateral completed [id number] 026 Information not available 04/07/2022 05:21:49 10/19/2021 US, doppler, venous completed [id number] [address] [facility], [place], [address], 04/07/2022 05:21:49 12/15/2021 XR, chest completed [id number] 026 [facility] (Human Resources) [address] [place] [address]-[facility], [place], [address], 04/07/2022 05:21:49 07/29/2022 MAMMO, screening, digital, bilateral completed [email or web address] [address], [place], [address], 10/26/2022 18:26:57 09/15/2022 XR, foot completed [address] [facility] [address], [place], [address], 12/13/2022 17:13:24 Procedure Notes None recorded. Medical Equipment None Reported. Allergies Allergen ID Allergen Name Allergen Category Reaction Reaction Severity Criticality Documentation Date Start Date Code Code System Note Provider Name and Address Organization Details Recorded Time 03171 Cipro medicatio n Not available Not available Not available 04/19/202401935 3 RxNorm Melinda vicente, [facility] [employer] [facility] 5 12:21:41 95834 Levaquin medicatio n Not available Not available Not available 04/19/2024 47773 2 RxNorm Melinda vicente, [employer] [facility] [employer] [facility] 5 12:21:56 9545 sulfameth izole Not available Not available Not available Not available 04/07/2022 10215 RxNorm Not Available [facility] [place] [facility] 3 05:21:25 9546 sulfadime thoxine Not available Not available Not available Not available 04/07/2022 25691 RxNorm Not Available [facility] [place] [facility] 3 05:21:25 9547 Substance with sulfonami de structure and antibacte rial mechanism of action (substanc e) medicatio n itching moderate Not available 04/07/2022 83699 8003 SNOMED Not Available [facility] 3 05:21:25 9548 Product containin g penicilli n (product) medicatio n fever moderate Not available 04/07/2022 78100 8001 SNOMED Not Available [facility] 3 05:21:25 9549 codeine medicatio n Not available Not available Not available 04/07/2022 2670 RxNorm Not Available [facility] [place] [facility] 3 05:21:25 9550 Bactrim medicatio n itching mild Not available 04/07/2022 00197 9 RxNorm Not Available [facility] 3 05:21:25 Medications Name Sig [...] completed Not Available Not Available Not Available [facility] with Large Mask 05/25 completed Not [...] % 96 % 96 /min 98 [degF] 78146.8 5 g 110 mm[Hg] 60 mm[Hg] Not Available [facility] 3 05:11:19 Date Recorded Body mass index (BMI) Body height Oxygen saturation Oxygen saturation in Arterial blood by Pulse oximetry Heart rate Body temperature Body weight Systolic blood pressure Diastolic blood pressure Provider Name and Address Organization Details Last Updated DateTime 1 27.8 kg/m2 170.18 cm 96 % 96 % 112 /min 96.2 [degF] 68302 g 120 mm[Hg] 80 mm[Hg] Not Available [facility] 3 05:11:19 Date Recorded Body mass index (BMI) Body height Oxygen saturation Oxygen saturation in Arterial blood by Pulse oximetry Heart rate Respiratory rate Body temperature Body weight Systolic blood pressure Diastolic blood pressure Provider Name and Address Organization Details Last Updated DateTime 2 30 kg/m2 170.18 cm 97 % 97 % 99 /min 16 /min 97.6 [degF] 37942.3 g 110 mm[Hg] 70 mm[Hg] Not Available [facility] 3 05:11:19 Date Recorded Body height Body temperature Body mass index (BMI) Body weight Respiratory rate Oxygen saturation Oxygen saturation in Arterial blood by Pulse oximetry Heart rate Systolic blood pressure Diastolic blood pressure Provider Name and Address Organization Details Last Updated DateTime 3 170.18 cm 97.6 [degF] 31 kg/m2 29494.2 9 g 16 /min 98 % 98 % 104 /min 128 mm[Hg] 80 mm[Hg] EDWARD Valles [facility] [employer] [facility] 3 14:42:15 Date Recorded Body height Body mass index (BMI) Body weight Heart rate Respiratory rate Oxygen saturation Oxygen saturation in Arterial blood by Pulse oximetry Systolic blood pressure Diastolic blood pressure Provider Name and Address Organization Details Last Updated DateTime 5 170.18 cm 31 kg/m2 90883.2 9 g 107 /min 14 /min 98 % 98 % 99 mm[Hg] 70 mm[Hg] Melinda Marin [facility] [employer] [facility] 5 11:17:43 Social History Question Answer Notes LastModified by [employer] ion Details LastModified Time Tobacco Smoking Status Never Smoker Not Available [facility] 04/07/2022 05:04:25 What Is Your Level Of Alcohol Consumption? None [id number] Information not available 04/07/2022 What Is Your Level Of Caffeine Consumption? Occasional [id number].[id number] 9603 Information not available 04/07/2022 How Much Tobacco Do You Chew? None MIGRATION.[id number] 8954 Information not available 04/07/2022 In The 14 Days Before Symptom Onset, Have You Had Close Contact With A Laboratory-confir med COVID-19 While That Case Was Ill? No MIGRATION.[id number] 9625 Information not available 04/07/2022 In The 14 Days Before Symptom Onset, Have You Had Close Contact With A Person Who Is Under Investigation For COVID-19 While That Person Was Ill? No MIGRATION.833642 1095 Information not available 04/07/2022 Are You Currently Employed? No [email or web address] Information not available 05/24/2022 What Type Of Diet Are You Following? REGULAR MIGRATION.611458 5159 Information not available 04/07/2022 Which Illicit Or Recreational Drugs Have You Used? None MIGRATION.595054 2374 Information not available 04/07/2022 Do You Or Have You Ever Used E-cigarettes Or Vape? Never Used Electronic Cigarettes MIGRATION.479607 0278 Information not available 04/07/2022 What Is Your Occupation? Unemployed MIGRATION.307894 4793 Information not available 04/07/2022 Have There Been Any Changes To Your Family Or Social Situation? No MIGRATION.648103 3690 Information not available 04/07/2022 Do You Use Insect Repellent Routinely? No MIGRATION.554489 5374 Information not available 04/07/2022 What Was The Date Of Your Most Recent Tobacco Screening? 04/19/2024 Information not available 04/19/2024 What Is Your Relationship Status? Single MIGRATION.791240 1786 Information not available 04/07/2022 Do You Use Your Seat Belt Or Car Seat Routinely? Yes MIGRATION.049432 4973 Information not available 04/07/2022 Do You Have Smoke And Carbon Monoxide Detectors In Your Home? Yes MIGRATION.478777 6723 Information not available 04/07/2022 Do You Or Have You Ever Used Smokeless Tobacco? Never Used Smokeless Tobacco MIGRATION.957042 5000 Information not available 04/07/2022 How Much Tobacco Do You Smoke? No MIGRATION.680934 5716 Information not available 04/07/2022 Do You Use Any Illicit Or Recreational Drugs? No MIGRATION.731278 3832 Information not available 04/07/2022 Do You Use Sunscreen Routinely? Yes MIGRATION.501755 5548 Information not available 04/07/2022 Has Tobacco Cessation Counseling Been Provided? No Information not available 04/19/2024 Have You Recently Traveled Abroad? No MIGRATION.650636 8154 Information not available 04/07/2022 Do You Have Any Dietary Restrictions? No MIGRATION.477283 6890 Information not available 04/07/2022 Do You Or Have You Ever Used Any Other Forms Of Tobacco Or Nicotine? No MIGRATION.545911 7633 Information not available 04/07/2022 Sex: Unknown Functional Status Question Answer Note LastModified by Organizat ion Details LastModified Time Do you have difficulty walking or climbing stairs? No MIGRATION.5410547 026 Information not available 04/07/2022 Do you have transportation difficulties? Yes MIGRATION.4871078 026 Information not available 04/07/2022 Are you able to walk? YESWOREST MIGRATION.1474723 026 Information not available 04/07/2022 Are you able to care for yourself? No [email or web address] Information n ot available 05/24/2022 Do you have difficulty dressing or bathing? No MIGRATION.9105697 026 Information not available 04/07/2022 What is your exercise level? None MIGRATION.6606292 026 Information not available 04/07/2022 Mental Status Question Answer Note LastModified by Organization D etails LastModified Time Do you have difficulty concentrating, remembering or making decisions? Yes [email or web address] Information no t available 05/24/2022 Family History Relationship Description Onset Age of this Age Resolved Age Notes LastModified by Organization Details LastModified Time Mother Motor vehicle traffic accident [id number] Not available 04/07/2022 05:05:28 Medical History Condition Response ANXIETY DISORDER Y HYPOTHYROIDISM Y ASTHMA Y BRONCHITIS Y OSTEOPOROSIS Y URINARY/BLADDER/KIDNEY PROBLEMS [...] influenza, unspecified formulation 5 completed Not Available [facility] 04/07/2022 05:21:16 Past Encounters Encounter ID Performer Location Encounter Start Date Encounter Closed Date Diagnosis/Indication Diagnosis SNOMED-CT Code Diagnosis ICD10 Code Diagnosis Note [id number] [facility] [address] [place] [address] 07/14/2020 00:00:00 08/02/2020 23:47:21 [id number] [facility] [address] [place] [address] 07/29/2020 00:00:00 08/05/2020 01:23:05 [id number] [facility] [address] [place] [address] 08/27/2020 00:00:00 09/06/2020 08:48:14 [id number] [facility] [address] [place] [address] 04/01/2021 00:00:00 04/04/2021 19:53:54 [id number] JESSICA Allen [facility] [place] [address] [place] [address] 05/25/2022 14:05:06 05/25/2022 15:31:44 Hypothyroidism 93057025 E03.9 stable on supplement . due for labs. Major depr essive disorder 663914997 F32.9 stable on celexa therapy Blood gluc ose outside reference range 091556550 R73.09 due for a1c screening. Asthma 953884684 J45.90 9 stable. on advair Chronic ur inary tract infection 209229687 N39.0 UA w/cx due Long-term drug therapy 770823138 Z79.899 routine bmp, cbc, and LFT due Osteoporosis 47978264 M8 1.0 vit D screening due Hyperlipidemia 74710501 E78.5 fasting lipids are due Screening mammography 24 668269 Z12.31 mammogram due Unable to cut own toenails 285774606 Z74.1 refer to floor covering contractor Seasonal a llergic rhinitis 744383580 J30.2 start loratidine 10mg daily. Screening for malignant neoplasm of colon 019333668 Z12.11 pt would like cologuard testing option. [id number] Nico Bowling DPM [facility] [address] [place] [address] 04/19/2024 11:08:22 04/24/2024 09:48:47 Pain in toe 123413719 M79.674 M79.675 secondary to deformitie sRecommend wide supportive shoe gearRecomm end offloading silicone toe sleevesRec ommend monitoring for wounds daily if present seek medical attention immediatel yFollow-up in 3 months for routine foot care Dystrophia unguium 56655 009 L60.3 nails debrided without incident Bunion 847497407 M21.61 9 bilateral worse to the righteduca karena on treatment optionsdoe s not want surgerysho wn conservati ve optionsfol low-up as needed Hammer toe 557985080 M20 .41 M20.42 as above Health Concerns Section Related Observation LastModified by Organization Detai ls LastModified Time None Recorded Concern Status LastModified by Organization Details LastModified Time None Recorded Advance Directives Directive None Recorded Payers Encounter Date Sequence Insurance Name Policy Number Policy Oliveira Covered Member ID Oliveira Member ID Guarantor Name 05/25/2022 1 [place] Dakotah L Jernigan [id number] Dakotah L Jernigan 05/25/2022 2 [place] WHEN [place]ARE OR MEDICARE REPLACEMENT PRIMARY) Dakotah L Jernigan [id number] Dakotah L Jernigan 04/19/2024 1 [place] Daoktah L Jernigan [id number] Dakotah L Jernigan 04/19/2024 2 [place] OR MEDICARE REPLACEMENT PRIMARY) Dakotah L Jernigan [id number] Dakotah L Jernigan Notes Date Note Type [...] palpitations Treatment:taking medication as directed Not Available [facility] [employer] 08/05/2020 01:23:05 021 text/ht ml Allergy/sinusitisReported bypatient.Onset/Timing:new [...] fine no more leg swelling Not Available [employer] 09/06/2020 08:48:14 022 text/ht ml EaracheReported bypatient.Location:right [...] medication and due for labs. Not Available [employer] 04/04/2021 19:53:54 023 text/ht ml Anxiety/DepressionReported bypatient.Quality:doesnt [...] changes; no hair changes JESSICA Allen [address], [place], [address], [employer] 06/04/2022 13:50:05 025 text/ ml Patient presents [...] MPJ bunion deformity. Nico Bowling DPM [address], [place], [address], [employer] 04/19/2024 13:59:42 OBGyn Episode No OBEpisode recorded.
--- OUTSIDE RECORDS SUMMARY | 2024-05-03 07:17 | XMS_ITS | Clinical Summary ---
Author Organization [facility] Care Team Providers Care Tube Cleaner Name Role Phone Unavailable Primary Care Provider [...]
--- OUTSIDE RECORDS SUMMARY | 2024-05-03 07:17 | XMS_ITS | Data Portability ---
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 Plan of Treatment Reminders Order Date Submit Date Provider Last Modified By Organization Details Last Modified Time Details Appointments ANY 15 2024 11:00A M JESSICA Allen Not available Not available Not available Lab urinalysi s, complete 2023 024 [facility], [address] [place] [address], [id number], 05/01/2024 12:23:43 culture, urine 2023 024 [facility], [address] [place] [address], [id number], 05/01/2024 12:23:58 hepatic function panel, serum [address] [facility], [address] [place] [address], [id number], 04/18/2024 09:20:58 BMP, serum or plasma 2023 024 [facility], [address] [place] [address], [id number], 05/01/2024 12:23:14 CBC w/ auto diff 2023 024 [facility], [address] [place] [address], [id number], 05/01/2024 12:24:29 lipid panel, serum 2023 024 [facility], [address] [place] [address], [id number], 05/01/2024 12:24:18 TSH + free T4, serum 2023 024 [facility], [address] [place] [address], [id number], 05/01/2024 12:23:37 urinalysi s, complete [address] [facility], [address] [place] [address], [id number], 06/30/2023 11:15:22 culture, urine [address] [facility], [address] [place] [address], [id number], 06/30/2023 11:15:22 hepatic function panel, serum 2023 024 [facility], [address] [place] [address], [id number], 06/15/2023 17:22:48 BMP, serum or plasma 2023 024 [facility], [address] [place] [address], [id number], 06/15/2023 17:22:12 CBC w/ auto diff 2023 024 [facility], [address] [place] [address], [id number], 06/15/2023 17:24:07 lipid panel, serum 2023 024 [facility], [address] [place] [address], [id number], 06/15/2023 17:24:36 TSH + free T4, serum 2023 024 [facility], [address] [place] [address], [id number], 06/15/2023 17:23:09 Referral None recorded. Procedures None recorded. Surgeries None recorded. Imaging DEXA [address] (Imaging), [address], [place], [address], 03/21/2024 16:18:19 Medication Orders nitrofura ntoin monohydra te/macroc rystals 100 mg capsule 2023 024 [email or web address] [id number], [address], [place], [place], [phone], 01/24/2024 12:10:08 Restasis 0.05 % eye drops in a dropperet te 2023 025 JEFF [id number], [address], [place], [place], [phone], 04/17/2024 16:02:08 Patient TargetsNo targets recorded. Patient Instructions Encounter Date Encounter Id Patient Instructions Last Modified By Organization Details Last Modified Time 01/24/2024 [id number] A healthy lifestyle: care instructions [email or web address] Not available 01/24/2024 12:11:43 Reason for Referral [...] POC Negat juan miguel Negat juan miguel [facility] Not Available Not Available 04/09/2024 10:56:32 03/23/1903/23/2024 SARS- CoV+S ARS-C oV-2 (COVI D-19) Ag [Pres ence] in Respi rator y syste m speci men by Rapid immun oassa y influenza B Ag, POC Negati ve text: negati ve Influ dmitri B Ag, POC Negat juan miguel Negat juan miguel [facility] Not Available Not Available 04/09/2024 [...] mptiv e Negat juan miguel, Inval id [facility] Not Available Not Available 04/09/2024 10:56:32 03/23/19 25 03/23/2024 SARS- CoV+S ARS-C oV-2 (COVI D-19) Ag [Pres ence] in Respi rator y syste m speci men by Rapid immun oassa y interpretati on and review of laboratory results Normal Not Available Not Available 04/2024 10:56:32 07/26/19 24 07/26/2023 XR, hip + pelvi s, unila teral No observ ation record ed. [address], [address], 07/27/2023 22:59:19 07/27/19 24 07/26/2023 CT, hip + pelvi s, w/o contr ast No observ ation record ed. [address] [address], [place], [address], 07/27/2023 23:00:38 10/31/19 24 10/28/2023 MAMMO , galileae barbara, digit al, bilat eral No observ ation record ed. [address] [address], [place], [address], 01/24/2024 11:55:08 02/08/19 25 02/09/2024 imagi ng inter preta tion No observ ation record ed. [email or web address] [facility] [address], [place], [address], 02/09/2024 17:06:32 04/28/19 25 04/26/2024 XR, chest , 2 view No observ ation record ed. [facility] [address], [place], [address], 04/27/2024 11:57:26 Result Notes None recorded. Problems Name Problem SNOMED Code Status Onset Date Resolution Date Notes Provider Name and Address Organization Details Recorded Time Fracture of pelvis 41989464 Active 2023 JESSICA Allen Attn: Adriel schaefer,[address] [place], [address], [place] [facility] 4 11:59:01 Long-term drug therapy Active 2023 JESSICA Allen Attn: Adriel schaefer,[address] [place], [address], [place] [facility] 4 11:59:02 Hyperlipidemia 51426059 Active 2023 JESSICA Allen Attn: Adriel schaefer,[address] [place], [address], [place] [facility] 4 11:59:04 Mood disorder 97284906 Active 2023 JESSICA Allen Attn: Adriel schaefer,[address] [place], [address], [place] [facility] 4 11:59:05 Lower urinary tract symptoms 663076526 Active 2023 JESSICA Allen Attn: Adriel schaefer,[address] [place], [address], [place] [facility] 4 11:59:07 Asthma 615824038 Active 2023 JESSICA Allen Attn: Adriel schaefer,[address] [place], [address], [place] [facility] 4 11:59:10 Hypothyroidism 31827249 Active 2023 JESSICA Allen Attn: Adriel schaefer,[address] [facility], [place], [address], [facility] - [facility] 4 11:59:12 Body mass index 25-29 - overweight 225590536 Active 2023 JESSICA Allen Attn: Adriel schaefer,[address] [place], [address], [facility] 4 11:59:32 Overweight 374934036 Active 2023 JESSICA Allen Attn: Adriel schaefer,[address] [facility], [place], [address], [facility] - [facility] 4 11:59:33 Body mass index 30+ - obesity 781690732 Active 2024 JESSICA Allen Attn: Adriel schaefer,[address] [facility], [place], [address], [facility] - [facility] 5 16:14:35 Problem Notes None recorded. Procedures Surgical History Date Name Laterality Status Provider Name and Address Organization Details Recorded Time Joint Replacement completed Brian Rudolph MA [facility] 05/17/2023 13:17:42 ligation of bilateral fallopian tubes completed Brian Rudolph MA [facility] 05/17/2023 13:18:14 Imaging Results Imaging Date Name Status LastModified by Organization Details LastModified Time 07/26/2023 XR, hip + pelvis, unilateral completed [address], [address], 07/27/2023 22:59:19 07/26/2023 CT, hip + pelvis, w/o contrast completed [address], [place], [address], 07/27/2023 23:00:38 10/28/2023 MAMMO, screening, digital, bilateral completed [address] [address], [place], [address], 01/24/2024 11:55:08 02/09/2024 imaging interpretation completed [address], [place], [address], 02/09/2024 17:06:32 04/26/2024 XR, chest, 2 view completed [address] [address], [place], [address], 04/27/2024 11:57:26 Procedure Notes None recorded. Medical Equipment None Reported. Allergies Allergen ID Allergen Name Allergen Category Reaction Reaction Severity Criticality Documentation Date Start Date Code Code System Note Provider Name and Address Organization Details Recorded Time 536002 Product containin g penicilli n (product) medicatio n Not available Not available Not available 05/17/2023 13841 8001 SNOMED Not Available Not Available Not Available 308274 Bactrim medicatio n Not available Not available Not available 05/17/2023 07475 9 RxNorm Not Available Not Available Not Available 670375 Cipro medicatio n Not available Not available Not available 07/05/2023 68218 3 RxNorm Not Available Not Available Not [...] 2024 active Not Available Not Available Not Avjulio césar labshannan risperido ne 2 mg tablet 04/17 completed [...] 2024 active Not Available Not Available Not Avjulio césar labshannan quetiapin e 50 mg tablet taken at [facility] active Not Available Not Available No t Available Breo Ellipta 200 mcg-25 mcg/dose powder for inhalatio n 1 inhalati on daily as directed 2024 active Not Available Not Available Not Janeth labshannan Paxlovid 300 mg (150 mg x 2)-100 [...] Organization Details Last Updated DateTime 168.28 cm 18 /min 28.8 kg/m2 56478.6 3 g 97 % 97 % 60 /min 126 mm[Hg] 82 mm[Hg] Brian Rudolph MA [facility] 4 11:34:44 Date Recorded Body height Oxygen saturation Oxygen saturation in Arterial blood by Pulse oximetry Heart rate Body mass index (BMI) Body weight Respiratory rate Systolic blood pressure Diastolic blood pressure Provider Name and Address Organization Details Last Updated DateTime 4 168.28 cm 97 % 97 % 76 /min 29.2 kg/m2 06416.8 1 g 18 /min 128 mm[Hg] 80 mm[Hg] Brian Rudolph MA [facility] 4 11:52:04 Date Recorded Systolic blood pressure Diastolic blood pressure Provider Name and Address Organization Details Last Updated DateTime 01/24/2024 120 mm[Hg] 80 mm[Hg] JESSICA Allen Attn: Accounting, [place], [address], [facility] 01/24/2024 12:09:23 Date Recorded Body height Body mass index (BMI) Body weight Heart rate Oxygen saturation Oxygen saturation in Arterial blood by Pulse oximetry Body temperature Systolic blood pressure Diastolic blood pressure Provider Name and Address Organization Details Last Updated DateTime 5 168.28 cm 31.3 kg/m2 95088.8 7 g 100 /min 99 % 99 % 98.5 [degF] 122 mm[Hg] 80 mm[Hg] Frances Dominguez MA [facility] 5 15:47:56 Date Recorded Respiratory rate Systolic blood pressure Diastolic blood pressure Provider Name and Address Organization Details Last Updated DateTime 04/17/2024 16 /min 110 mm[Hg] 80 mm[Hg] JESSICA Allen Attn: Accounting, [address] [place], [address], [facility] 04/17/2024 16:15:27 Social History Question Answer Notes LastModified by Organizat ion Details LastModified Time Tobacco Smoking Status Never Smoker Brian Rudolph MA null, [facility] 01/24/2024 11:49:21 Do You Have An [...] Skin Problems N Anemia Y Heart Attack ([place]) N Anxiety Disorder Y Diabetes N Muscle, [...] [place] [facility] 01/24/2024 11:49:45 Tdap 09/22/2020 completed ARM[place]O [place] [facility] 01/24/2024 11:49:45 DTP 09/21/2012 [place] [facility] 01/24/2024 11:49:45 pneumococcal, unspecified formulation 05/10/2011 [place] ARM[place] [facility] 01/24/2024 11:49:45 Influenza, split virus, quadrivalent, PF 11/21/2020 [place] ARM[place] [facility] 01/24/2024 11:49:45 Past Encounters Encounter ID Performer Location Encounter Start Date Encounter Closed Date Diagnosis/Indication Diagnosis SNOMED-CT Code Diagnosis ICD10 Code Diagnosis Note [id number] JESSICA Allen User [employer] [address] [place] [address] 05/17/2023 11:19:47 05/17/2023 12:49:10 Hypothyroidism 53790566 E03.9 Stable on levothyrox ine 50mcg daily and due for updated TFT panel. Asthma 950040605 J45.90 9 pt is currently stable with asthma on advair hfa 115mcg /21mcg Cholesterol screening 27 3630891 Z13.220 fasting lipids due. Long-term drug therapy 273448940 Z79.899 routine bmp, LFT, and CBC due. Dry eyes 109383273 H04.1 23 Rx trial of restasis eye drops as directed. she should also see her eye doctor. Lower urin shadi tract symptoms 438701671 R39.9 pt c/o of urinary frequency and some mild dysuria. start macrobid 100mg bid course x 7 days and then check UA w/cx after. Mood disorder 61431296 F 39 exact DSM IV diagnosis is not known to this provider, but patient is on quetiapine , citalopram , and risperidon e from psychiatry . [id number] JESSICA Allen [employer] [address] [place] [address] 01/24/2024 11:44:31 01/24/2024 12:18:41 Hypothyroidism 49149802 E03.9 Stable on levothyrox ine 50mcg daily and due for updated TFT panel. Asthma 545219741 J45.90 9 pt is currently stable with asthma on advair hfa 115mcg /21mcg, asthma is stable at this time Lower urin shadi tract symptoms 414135609 R39.9 pt c/o of urinary frequency and frequent UTIs. We will check a routine culture with urine Mood disorder 81508010 F 39 exact DSM IV diagnosis is not known to this provider, but patient is on quetiapine , citalopram , and risperidon e from psychiatry . Long-term drug therapy 715419922 Z79.899 routine bmp, LFT, and CBC due. Fracture of pelvis 85160 009 S32.9XXA History of fracture of pelvis this year. We will send her for a DEXA scan that is due Hyperlipidemia 82513882 E78.5 Fasting lipid panel is due Body mass index 25-29 - overweight 651446578 Z68.29 bmi 29.2 Overweight 464597055 E66 .3 discussed healthy diet, exercise, controllin g carbohydra mariam and added sugars in the diet [id number] JESSICA Allen [facility] [address] [place] [address] 04/17/2024 15:08:03 04/17/2024 16:21:24 Body mass index 30+ - obesity 567295854 Z68.31 Chronic ob structive pulmonary disease 31132814 J44.9 Bilateral lower leg edema 665565062 R60.0 Urinary tr act infectious disease 49676053 N39.0 Obesity 217941196 E66.9 Health Concerns Section Related Observation LastModified by Organization Detai ls LastModified Time None Recorded Concern Status LastModified by Organization Details LastModified Time None Recorded Advance Directives Directive Y: Payers Encounter Date Sequence Insurance Name Policy Number Policy Oliveira Covered Member ID Oliveira Member ID Guarantor Name 05/17/2023 2 [place] WHEN [place]ARE OR MEDICARE REPLACEMENT PRIMARY) Dakotah Jernigan [id number] Dakotah Jernigan 05/17/2023 1 [place] Dakotah Jernigan [id number] Dakotah Jernigan 01/24/2024 2 [place] WHEN [place]ARE OR MEDICARE REPLACEMENT PRIMARY) Dakotah Jernigan [id number] Dakotah Jernigan 01/24/2024 1 [place] Dakotah Jernigan [id number] Dakotah Jernigan Notes Date Note Type Note [...] weather related. JESSICA Allen Attn: Accounting, [address] [place], [address], [place] [facility] 06/05/2023 15:26:41 01/24/20 24 text/htm l Asthma [...] DEXA scan JESSICA Allen Attn: Accounting, [address] [place], [address], [facility] 02/07/2024 12:21:58 OBGyn Episode No OBEpisode recorded.
--- OUTSIDE RECORDS SUMMARY | 2024-05-03 07:17 | XMS_ITS | Clinical Summary ---
Author Organization [facility] [place] Address [address] [place] [address] Care Team Providers Care Elect Equip Maint Eng Name Role Phone Elena Payton Primary Care Provider [phone] Allergies Active Allergy Reactions Criticality Noted Date [...] on file Legal Sex Female 11:43 AM PROFESSOR OF ENVIRONMENTAL STUDIES Gender Identity Not on file Sexual Orientation Not on file Last Filed Vital Signs Vital Sign Reading Time Taken Comments Blood Pressure 106/62 01/18/2017 3:02 PM PROFESSOR OF ENVIRONMENTAL STUDIES Pulse 75 01/18/2017 3:02 PM PROFESSOR OF ENVIRONMENTAL STUDIES Temperature - - Respiratory Rate - - Oxygen Saturation 97% 01/18/2017 3:02 PM PROFESSOR OF ENVIRONMENTAL STUDIES Inhaled Oxygen Concentration - - Weight 69.4 kg (153 lb) 01/18/2017 3:02 PM PROFESSOR OF ENVIRONMENTAL STUDIES Height 171.5 cm (5' 7.5 ) 01/18/2017 3:02 PM PROFESSOR OF ENVIRONMENTAL STUDIES Body Mass Index 23.61 01/18/2017 3:02 PM PROFESSOR OF ENVIRONMENTAL STUDIES Plan of Treatment Health Maintenance Due Date Last Done Comments DTAP/TDAP/TD VACCINES (1 - Tdap) 1973 COLORECTAL SCREENING 05/15/1999 Colorectal Cancer Screening 05/15/1999 FIT-DNA Q 3 years 05/15/1999 FIT/FOBT Q 1 year 05/15/1999 Flex Sig/CT Colonography Q 5 years 05/15/1999 PNEUMOCOCCAL VACCINE 50+ YEA RS (1 of 1 - PCV) 2004 ZOSTER VACCINE (1 of 2) 2004 OSTEOPOROSIS SCREENING 05/15/2019 BREAST CANCER SCREENING 07/08/2019 07/08/19 19, 07/07/2018, 06/22/2016, Additional history exists INFLUENZA VACCINE (#1) 2023 RSV VACCINE (60+ or ) (1 - 1-dose 75+ series) 2029 Insurance MEDICARE PART A AND B Care Teams Elect Equip Maint Eng Relationship Specialty Start Date End Date Elena Payton PA PCP - General Physician Sap Treasury Consultant 01/18/17
== END 2024-05-03 07:13 | disposition home or self-care (01) ==
PROVIDERS: PCP Physician Assistant; Visit Provider Physician Assistant
DX: R60.0 Localized edema (principal)
CPT/HCPCS: 93306

== ENCOUNTER 2024-06-09 10:03 | Outpatient (CLI) | payer MEDICARE, MEDICAID, SELFPAY ==
--- NOTE | ~2024-06-09 | XR_ITS ---
AP and lateral views of the bilateral hips Clinical history: Pain Findings: No acute fracture or dislocation is seen. Bilateral hip arthroplasties are present. Chronic fracture deformity left inferior pubic ramus is unchanged.. Soft tissues are unremarkable. Impression: No acute abnormality. 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 Bilateral hip arthroplasties. Reviewed, dictated and finalized at [facility]. Impression: No acute abnormality. 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 Bilateral hip arthroplasties.
--- OUTSIDE RECORDS SUMMARY | 2024-06-09 16:13 | XMS_ITS | Clinical Summary ---
Author Organization [facility] [address] Address [address] [place] [address] Care Team Providers Care Shotgun Shell Reprinting Unit Operator Name Role Phone Elena Payton Primary Care Pr ovider Allergies Active Allergy Reactions Criticality Noted Date Comments Codeine Itching,Unknown Low 12/28/2016 Penicillins Fever,Shortness of breath,Unknown High 12/28/2016 Sulfa (Sulfonamide Antibiotics) Itching,Nausea And Vomiting,Unknown Medium 12/28/2016 Sulfamethoxazole-Trimethopri m Itching,Nausea And Vomiting,Unknown Low 12/28/2016 Unclassified Drug Unknown 12/28/2016 Medications inhalat.spacing dev,large mask (OptiCThe Whootber Ivette Lg Mask) spacer [facility] with Large Mask Active albuterol 2.5 [...] Department Care Team Description 03/23/2024 3:25 PM TOOLER Ancillary Procedure [facility] Imaging at [address] [address] Acute cough 03/23/2024 3:00 PM TOOLER Office Visit [facility] Care at [address] [address] Lucrecia Jorgensen NP Lower respiratory infection (e.g., bronchitis, pneumonia, pneumonitis, pulmonitis) (Primary Dx) from Last 3 Months Social History Tobacco Use Types Packs/Day Years Used Date Smoking Tobacco: Former Cigarettes Tobacco Cessation:Counseling Given: Not Answered Comments Unknown Sex and Gender Information Value Date Recorded Sex Assigned at Not on file Legal Sex Female 6:39 AM TOOLER Gender Identity Not on file Sexual Orientation Not on file Obstetrics History Last Filed Vital Signs Vital Sign Reading Time Taken Comments Blood Pressure 104/71 03/23/2024 3:02 PM TOOLER Pulse 85 03/23/2024 3:02 PM TOOLER Temperature 36.8 C (98.3 F) 03/23/2024 3:02 PM TOOLER Respiratory Rate 20 03/23/2024 3:02 PM TOOLER Oxygen Saturation 95% 03/23/2024 3:02 PM TOOLER Inhaled Oxygen Concentration - - Weight 85.7 kg (189 lb) 03/23/2024 3:02 PM TOOLER Height 170.2 cm (5' 7.01 ) 02/04/2023 9:27 AM CS T Body Mass Index 29.59 02/04/2023 9:27 AM TOOLER Plan of Treatment Health Maintenance Due Date [...] 5 season) 2023 04/06/2020, 03/16/2020 Influenza Vaccine (Season Ended) 2024 11/21/2020, 02/07/2014, 05/10/2011 DTaP/Tdap/Td Vaccine (4 - Td or Tdap) 09/22/2030 09/22/2020, 09/21/2012, 09/21/2012 Procedures Procedure Name Priority Date/Time Associated Diagnosis Comments POC INFLUENZA A/B, COVID-19 ANTIGEN Routine 03/23/2024 3:36 PM TOOLER Lower respiratory infection (e.g., bronchitis, pneumonia, pneumonitis, pulmonitis) XR CHEST PA LATERAL 2 VIEWS Routine 03/23/2024 3:26 PM TOOLER Acute cough SCREENING MAMMOGRAM BILATERAL W YOSEF Routine 06/22/2016 9:57 AM CDT from Last 3 Months or Most Recently Relevant to Health Maintenance Results * POC Influenza A/B, COVID-19 antigen (03/23/2024 3:36 PM TOOLER) Influenza A Ag, POC Negative Negative [facility] Influenza B Ag, POC Negative Negative [facility] COVID-19 Ag POC Presumptive Negative Presumptive Negative, Invalid [facility] Nasal 03/23/2024 3:36 PM TOOLER Lucrecia Jorgensen NP POINT OF CARE TEST ORDERABLES Final Result Performing Organization Address City/State/[facility] Co de Phone Number [employer] [address] [place] [address] * XR Chest PA Lateral 2 Views (03/23/2024 3:26 PM TOOLER) Anatomical Region Laterality Modality Body, Chest N/A Digital Radiogra phy 03/23/2024 3:44 PM TOOLER Narrative 03/23/2024 3:51 PM TOOLER EXAM DESCRIPTION: XR CHEST PA LATERAL 2 [...] Abdifatah Josue M.D. LB T: Report ID: [id number] Reading Location: [id number] Procedure Note Abdifatah Josue MD - 03/23/2024 [...] Abdifatah Josue M.D. LB T: Report ID: [id number] Reading Location: [id number] Lucrecia Jorgensen MOTOR ASSEMBLY SUPERVISOR IMG XR PROCEDURES Final Result * Screening [...] signed by: Edy Olsen M.D., md/:06/22/2016 11:03:24 Coffee Attendant: Jaz BARAJAS)(Rey), [facility] letter sent: Normal Exam Reading location: BI-RADS: [...] mammogram, 04/18/2013 mammogram, and 03/24/2012 mammogram - [facility]. BREAST TISSUE: The tissue of both breasts [...] mammogram, 04/18/2013 mammogram, and 03/24/2012 mammogram - [facility]. BREAST TISSUE: The tissue of both [...] signed by: Edy Olsen M.D., md/:06/22/2016 11:03:24 Coffee Attendant: Jaz BARAJAS)(M), [facility] letter sent: Normal Exam Reading location: BI-RADS: 2 Benign [EOD] us Elena LOPEZ IMG MAMMO PROCED URES Final Result from Last 3 Months or Most Recently Relevant to Health Maintenance Insurance MEDICARE MEDICARE IDPA Care Teams Shotgun Shell Reprinting Unit Operator Relationship Specialty Start Date End Date Elena Payton PA PCP - General Physician Pantomimist 09/11/18
--- OUTSIDE RECORDS SUMMARY | 2024-06-09 16:13 | XMS_ITS | Referral Summary ---
Author Organization [facility] [address] Address [address] [place] [address] Care Team Providers Care Dog License Officer Supervisor Name Role Phone Elena Payton Primary Care Pr ovider Encounters Date Type Department Care Team Description 03/23/2024 3:25 PM CONSTRUCTION TECHNICIAN Ancillary Procedure [facility] Imaging at [address] [address] Acute cough 03/23/2024 3:00 PM CONSTRUCTION TECHNICIAN Office Visit [facility] Con[facility]ient Care at [address] [address] Lucrecia Jorgensen NP Lower respiratory [...] (OptiChamber Ivette Lg Mask) spacer OptiChamber Ivette [facility] with Large Mask Active albuterol 2.5 [...] on file Legal Sex Female 6:39 AM CONSTRUCTION TECHNICIAN Gender Identity Not on file Sexual Orientation Not on file Last Filed Vital Signs Vital Sign Reading Time Taken Comments Blood Pressure 104/71 03/23/2024 3:02 PM CONSTRUCTION TECHNICIAN Pulse 85 03/23/2024 3:02 PM CONSTRUCTION TECHNICIAN Temperature 36.8 C (98.3 F) 03/23/2024 3:02 PM CONSTRUCTION TECHNICIAN Respiratory Rate 20 03/23/2024 3:02 PM CONSTRUCTION TECHNICIAN Oxygen Saturation 95% 03/23/2024 3:02 PM CONSTRUCTION TECHNICIAN Inhaled Oxygen Concentration - - Weight 85.7 kg (189 lb) 03/23/2024 3:02 PM CONSTRUCTION TECHNICIAN Height 170.2 cm (5' 7.01 ) 02/04/2023 9:27 AM CS T Body Mass Index 29.59 02/04/2023 9:27 AM CONSTRUCTION TECHNICIAN Plan of Treatment Not on file Procedures Procedure Name Priority Date/Time Associated Diagnosis Comments POC INFLUENZA A/B, COVID-19 ANTIGEN Routine 03/23/2024 3:36 PM CONSTRUCTION TECHNICIAN Lower respiratory infection (e.g., bronchitis, pneumonia, pneumonitis, pulmonitis) XR CHEST PA LATERAL 2 VIEWS Routine 03/23/2024 3:26 PM CONSTRUCTION TECHNICIAN Acute cough SCREENING MAMMOGRAM BILATERAL W YOSEF Routine 06/22/2016 9:57 AM CDT from Last 3 Months or Most Recently Relevant to Health Maintenance Results * POC Influenza A/B, COVID-19 antigen (03/23/2024 3:36 PM CONSTRUCTION TECHNICIAN) Influenza A Ag, POC Negative Negative [facility] Influenza B Ag, POC Negative Negative [facility] COVID-19 Ag POC Presumptive Negative Presumptive Negative, Invalid [facility] Nasal 03/23/2024 3:36 PM CONSTRUCTION TECHNICIAN us Lucrecia Jorgensen NP POINT OF CARE TEST ORDERABLES Final Result [facility] [address] [place] [address] * XR Chest PA Lateral 2 Views (03/23/2024 3:26 PM CONSTRUCTION TECHNICIAN) Anatomical Region Laterality Modality Body, Chest N/A Digital Radiogra phy 03/23/2024 3:44 PM CONSTRUCTION TECHNICIAN Narrative 03/23/2024 3:51 PM CONSTRUCTION TECHNICIAN EXAM DESCRIPTION: XR CHEST PA LATERAL [...] Abdifatah Josue M.D. LB T: Report ID: [id number] Reading Location: [place] [address] Procedure Note Abdifatah Josue MD - 03/23/2024 [...] Abdifatah Josue M.D. LB T: Report ID: [id number] Reading Location: [id number] us Lucrecia Jorgensen [facility] IMG XR PROCEDURES Final Result * Screening [...] signed by: Edy Olsen M.D., md/:06/22/2016 11:03:24 Last Model Department Supervisor: Jaz Oneill RT(Francisco)(Rey), [facility] letter sent: Normal Exam Reading location: [...] mammogram, 04/18/2013 mammogram, and 03/24/2012 mammogram - [facility]. BREAST TISSUE: The tissue of both [...] mammogram, 04/18/2013 mammogram, and 03/24/2012 mammogram - [facility]. BREAST TISSUE: The tissue of both [...] signed by: Edy Olsen M.D., md/:06/22/2016 11:03:24 Last Model Department Supervisor: Jaz BARAJAS)(M), [facility] letter sent: Normal Exam Reading location: BI-RADS: 2 Benign [EOD] us Elena LOPEZ IMG MAMMO PROCED URES Final Result from Last 3 Months or Most Recently Relevant to Health Maintenance Insurance * Guarantor: Dakotah Jernigan Account Type Relation to Patient Date of Phone Billing Address Personal/Family Self 1955 [address] [place] [address] [employer] * Guarantor: Dakotah Jernigan Account Type Relation to Patient Date of Phone Billing Address Personal/Family Self 1955 [address] [place] [address] MEDICARE [facility] Care Teams Dog License Officer Supervisor Relationship Specialty Start Date End Date Elena Payton PA PCP - General Physician Signal Constructor 09/11/18
--- OUTSIDE RECORDS SUMMARY | 2024-06-09 16:14 | XMS_ITS | Clinical Summary ---
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 Temperature - - Respiratory Rate - - Oxygen Saturation - - Inhaled Oxygen Concentration - - Weight 69.9 kg (154 lb) 01/06/2017 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 Height 170.2 cm (5' 7 ) 01/06/2017 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 Body Mass Index 24.12 01/06/2017 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 Plan of Treatment Health Maintenance Due Date Last Done Comments Colorectal Cancer Screening Colonoscopy (10 Years) 1955 Hepatitis C 1972 DTaP, Tdap and Td Vaccines ( 1 - Tdap) 1973 Mammogram Screening 1994 Pneumococcal Vaccine: 50+ Ye ars (1 of 1 - PCV) 2004 Zoster Vaccines (1 of 2) 2004 Annual Medicare Wellness Visit 05/15/2019 Dexa Scan (General) 05/15/2019 COVID-19 Vaccine ( - 2023-2 5 season) 2023 RSV Immunization or 60+ Years (1 [...] this topic Insurance MEDICAID MEDICARE Care Teams Crtt Relationship Specialty Start Date End Date Elena Payton PA [address] [place] [address] PCP - General 12/28/16 Robbin Rodgers MD [id number] [place] [address] Referring Physician VASCULAR SURGERY 12/28/16
--- OUTSIDE RECORDS SUMMARY | 2024-06-09 16:14 | XMS_ITS | Clinical Summary ---
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
--- OUTSIDE RECORDS SUMMARY | 2024-06-09 16:14 | XMS_ITS | Data Portability ---
Author Organization [facility] [employer], Main Office Address [address] [place] [address] Care Team Providers Care Manager News Name Role Phone ALEKSANDER VILLANUEVA Primary Care Provider ALEKSANDER VILLANUEVA Referring Provider [phone] Assessment Encounter Date Assessment Date Assessment LastModified by Organization Details LastModified Time 04/19/2024 04/19/2024 This note is dictated and transcribed by [employer]. Gasser Machine Operator variances may occur. Despite proofreading, typographical errors may occur. Occasional wrong-word or 'gcvdu-w-eegm' substitutions may have occurred due to the inherent limitations of voice recording. Read the chart carefully and recognize, using context, where substitutions have occurred. [email or web address] Not available 04/19/2024 12:00:51 Plan of Treatment Reminders Order Date Submit Date Provider Last Modified By Organization Details Last Modified Time Details Appointments None recorded. Lab vitamin D, 25-hydroxy, total, serum 2022 [email or web address] [place] [address] (Lab), [address] [place] [address], [phone], 3 12:43:40 HbA1c (hemoglobin A1c), blood 2022 [email or web address] [place] [address] (Lab), [address] [place] [address], [address], 3 12:43:39 BMP, serum or plasma 2022 [email or web address] [place] [address] (Lab), [address] [place] [address], [phone], 3 12:43:39 CBC w/ auto diff [address] (Lab), [address] [place] [address], [address], 3 12:43:39 hepatic function panel, serum [address] (Lab), [address] [place] [address], [address], 3 12:43:40 lipid panel, serum [address] (Lab), [address] [place] [address], [address], 3 12:43:40 noninvasive colorectal cancer DNA + occult blood screening, QL, stool 2022 023 [email or web address] [address] [facility] (Cologuard Orders Only), [address], [address], [place], [address], 4 14:59:43 urinalysis complete, reflex culture [address] (Lab), [address] [place] [address], [address], 3 12:43:39 T4, free, serum [address] (Lab), [address] [place] [address], [address], 3 12:43:39 TSH, serum or plasma 2022 023 [facility] (Lab), [address] [place] [address], [address], 3 14:26:30 Referral rental coordinator referral 2022 023 JEFF Nico Bowling DPM, [address], [place], [address], 05:01:27 Procedures None recorded. Surgeries None recorded. Imaging MAMMO, screening, digital, bilateral 2022 023 [facility] (Mammography) , [address], [place], [address], 3 16:28:21 Medication Orders loratadine 10 mg tablet 2022 023 [id number], [address], [place], [phone], 17:48:17 Patient TargetsNo targets recorded. Patient InstructionsNo instructions recorded. 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 [id number] Not Available 04/07/2022 05:21:49 12/17/19 21 11/20/2020 CT, abdom en + pelvi s, w/ contr ast No observ ation record ed. [id number] [facility] (Imaging) [address], [place], [address], 04/07/2022 05:21:49 12/18/19 21 11/23/2020 CT, angio gram, chest , w/ contr ast No observ ation record ed. MIGRATION. [address] Rtcounts include 234 beds at the [facility], [place], [address], 04/07/2022 05:21:49 12/18/19 21 11/23/2020 XR, chest , 2 view No observ ation record ed. MIGRATION. [facility] (Imaging) [address] [place] [address], [place], [address], 04/07/2022 05:21:49 04/15/19 22 04/12/2021 XR, chest No observ ation record ed. MIGRATION. [facility] (Imaging) [address] [place] [address], [place], [address], 04/07/2022 05:21:49 04/18/19 22 03/26/2021 US, doppl er, venou s No observ ation record ed. MIGRATION. Not Available 04/07/2022 05:21:49 04/28/19 22 04/27/2021 MAMMO , scree barbara, digit al, bilat eral No observ ation record ed. MIGRATION. Not Available 04/07/2022 05:21:49 06/23/19 22 06/22/2021 CT, abdom en + pelvi s, w/ contr ast No observ ation record ed. MIGRATION. [place] [address], [place], [address], 04/07/2022 05:21:49 10/30/19 22 10/19/2021 US, doppl er, venou s No observ ation record ed. MIGRATION. [address] Rtcounts include 234 beds at the [facility], [place], [address], 04/07/2022 05:21:49 12/17/19 22 12/15/2021 XR, chest No observ ation record ed. MIGRATION. [facility] (Human Resources) [address] [place] [address], [place], [address], 04/07/2022 05:21:49 07/31/19 23 07/29/2022 MAMMO , scree barbara, digit al, bilat eral No observ ation record ed. [email or web address] [address], [place], [address], 10/26/2022 18:26:57 12/10/19 23 09/15/2022 XR, foot No observ ation record ed. [email or web address], [place], [address], 12/13/2022 17:13:24 Result Notes None recorded. Problems Name Problem SNOMED Code Status Onset Date Resolution Date Notes Provider Name and Address Organization Details Recorded Time Impacted cerumen of bilateral ears 0770865788472 108 Active 2021 Not Available [facility] 3 05:13:46 Trimalleol ar fracture 366929976 Active 2018 Not Available [facility] 3 05:13:46 Trimalleol ar fracture 262555897 Active 2018 Not Available [facility] 3 05:13:46 Bipolar disorder 59872960 Active Not Available [facility] 3 05:13:46 Blood glucose outside reference range 471655286 Active Not Available [facility] 3 05:13:46 Chronic urinary tract infection 142067343 Active Not Available [facility] 3 05:13:46 Pain of joint of elbow 298137890 Active Not Available [facility] 3 05:13:46 Long-term drug therapy Active 2021 Not Available [facility] 3 05:13:46 Anemia 051751561 Active Not Available [facility] 3 05:13:46 Eruption 287013585 Active Not Available [facility] 3 05:13:46 Cholestero l screening Active 2021 Not Available [facility] 3 05:13:46 Vaginal lesion 644508638 Active Not Available [facility] 3 05:13:46 Lower urinary tract symptoms 634465636 Active 2021 Not Available [facility] 3 05:13:46 Otitis externa 7523569 Active Not Available [facility] 3 05:13:46 Pain in left knee Active Not Available [facility] 3 05:13:47 Major depressive disorder 942445958 Active Not Available [facility] 3 05:13:47 Impairment of balance 749703056 Active Not Available [facility] 3 05:13:47 Hypothyroi dism 85854771 Active Not Available [facility] 3 05:13:47 Pain of hip region 81036257 Active Not Available [facility] 3 05:13:47 Wheezing 47323011 Active 2018 Not Available [facility] 3 05:13:47 Osteoporos is 45514020 Active Not Available [facility] 3 05:13:47 Otitis media 08058101 Active 2021 Not Available [facility] 3 05:13:47 Fatigue 86914013 Active Not Available [facility] 3 05:13:47 Facial paresthesi a 96881892 Active Not Available [facility] 3 05:13:47 Asthma 691734601 Active 2022 JESSICA Allen [address], [address], [place], [address] , [facility] 3 13:09:04 Hyperlipid emia 16541045 Active 2022 JESSICA Allen [address], [address], [place], [address] , [employer] [facility] 3 15:24:04 Seasonal allergic rhinitis 693554462 Active 2022 JESSICA Allen [address], [address], [place], [address] , [facility] 3 17:47:52 Acute urinary tract infection 514934192 Active 2022 Aleksander Menossi, [place] [address], [address], [place], [address] , [facility] 3 16:06:55 Dystrophia unguium 15026749 Active 2024 Nico Bowling DPM [address], [address], [place], [address] , [facility] 13:57:56 Bunion 271723217 Active 2024 Nico Bowling DPM [address], [address], [place], [address] , [facility] [facility] 13:57:59 Hammer toe 391685060 Active 2024 Nico Bowling DPM [address], [address], [place], [address] , [employer] [facility] 13:58:28 Pain in toe 477498466 Active 2024 Nico Bowling DPM [address], [address], [place], [address] , [facility] 13:58:41 Problem Notes None recorded. Procedures Surgical History Date Name Laterality Status Provider Name and Address Organization Details Recorded Time 04/20/19 25 Nail Debridement completed Nico Bowling DPM [address], [address], [place], [address], [facility] 04/19/2024 13:57:27 04/09/19 20 Most Recent Bone Density completed Not Available [facility] 04/07/2022 05:05:19 Tubal Ligation completed Not Available [facility] 04/07/2022 05:05:22 Cholecystectomy completed Not Available [facility] 04/07/2022 05:05:22 Orthopedic Surgery completed Not Available [facility] 04/07/2022 05:05:22 Imaging Results Imaging Date Name Status LastModified by [facility] includes [facility] Details LastModified Time 06/22/2021 CT, abdomen + pelvis, w/ contrast completed [id number] [address] [place] [address] [address], [place], [address], 04/07/2022 05:21:49 11/23/2020 CT, angiogram, chest, w/ contrast completed [id number] [address] [place] [address] [facility] [address], [place], [address], 04/07/2022 05:21:49 11/23/2020 XR, chest, 2 view completed [id number] 026 [facility] (Imaging) [address] [place] [address] [address], [place], [address], 04/07/2022 05:21:49 08/27/2020 US, doppler, venous completed [id number] 026 Information not available 04/07/2022 05:21:49 11/20/2020 CT, abdomen + pelvis, w/ contrast completed [id number] [facility] (Imaging) [address] [place] [address] [address] [facility], [place], [address], 04/07/2022 05:21:49 04/12/2021 XR, chest completed [id number] 026 [facility] (Imaging) [address] [place] [address] [address] [facility], [place], [address], 04/07/2022 05:21:49 03/26/2021 US, doppler, venous completed [email or web address].[id number] 026 Information not available 04/07/2022 05:21:49 04/27/2021 MAMMO, screening, digital, bilateral completed [email or web address].[id number] 026 Information not available 04/07/2022 05:21:49 10/19/2021 US, doppler, venous completed [id number] [address], [place], [address], 04/07/2022 05:21:49 12/15/2021 XR, chest completed [id number] 026 [facility] (Human Resources) [facility], [place], [address], 04/07/2022 05:21:49 07/29/2022 MAMMO, screening, digital, bilateral completed [email or web address] [address], [place], [address], 10/26/2022 18:26:57 09/15/2022 XR, foot completed [email or web address] [facility] [address] [facility] [address], [place], [address], 12/13/2022 17:13:24 Procedure Notes None recorded. Medical Equipment None Reported. Allergies Allergen ID Allergen Name Allergen Category Reaction Reaction Severity Criticality Documentation Date Start Date Code Code System Note Provider Name and Address Organization Details Recorded Time 00084 Cipro medicatio n Not available Not available Not available 04/19/202430827 3 RxNorm Melinda vicente, [place] [facility] [employer] [employer] [facility] 5 12:21:41 45754 Levaquin medicatio n Not available Not available Not available 04/19/202499623 2 RxNorm Melinda vicente, [employer] [facility] [employer] [facility] [employer] 5 12:21:56 9545 sulfameth izole Not available Not available Not available Not available 04/07/2022 05016 RxNorm Not Available [facility] 3 05:21:25 9546 sulfadime thoxine Not available Not available Not available Not available 04/07/2022 44568 RxNorm Not Available [facility] 3 05:21:25 9547 Substance with sulfonami de structure and antibacte rial mechanism of action (substanc e) medicatio n itching moderate Not available 04/07/2022 49905 8003 SNOMED Not Available [facility] 3 05:21:25 9548 Product containin g penicilli n (product) medicatio n fever moderate Not available 04/07/2022 81662 8001 SNOMED Not Available [facility] 3 05:21:25 9549 codeine medicatio n Not available Not available Not available 04/07/2022 2670 RxNorm Not Available [facility] 3 05:21:25 9550 Bactrim medicatio n itching mild Not available 04/07/2022 32894 9 RxNorm Not Available [facility] 3 05:21:25 Medications Name Sig Start Date [...] Available Not Available Not Available [facility] with Large Mask 05/25 completed Not [...] % 96 % 96 /min 98 [degF] 61746.8 5 g 110 mm[Hg] 60 mm[Hg] Not Available formerly [facility] 3 05:11:19 Date Recorded Body mass index (BMI) Body height Oxygen saturation Oxygen saturation in Arterial blood by Pulse oximetry Heart rate Body temperature Body weight Systolic blood pressure Diastolic blood pressure Provider Name and Address Organization Details Last Updated DateTime 1 27.8 kg/m2 170.18 cm 96 % 96 % 112 /min 96.2 [degF] 87883 g 120 mm[Hg] 80 mm[Hg] Not Available [facility] 3 05:11:19 Date Recorded Body mass index (BMI) Body height Oxygen saturation Oxygen saturation in Arterial blood by Pulse oximetry Heart rate Respiratory rate Body temperature Body weight Systolic blood pressure Diastolic blood pressure Provider Name and Address Organization Details Last Updated DateTime 2 30 kg/m2 170.18 cm 97 % 97 % 99 /min 16 /min 97.6 [degF] 08375.3 g 110 mm[Hg] 70 mm[Hg] Not Available [facility] 3 05:11:19 Date Recorded Body height Body temperature Body mass index (BMI) Body weight Respiratory rate Oxygen saturation Oxygen saturation in Arterial blood by Pulse oximetry Heart rate Systolic blood pressure Diastolic blood pressure Provider Name and Address Organization Details Last Updated DateTime 3 170.18 cm 97.6 [degF] 31 kg/m2 00334.2 9 g 16 /min 98 % 98 % 104 /min 128 mm[Hg] 80 mm[Hg] EDWARD Valles [facility] [employer] [facility] 3 14:42:15 Date Recorded Body height Body mass index (BMI) Body weight Heart rate Respiratory rate Oxygen saturation Oxygen saturation in Arterial blood by Pulse oximetry Systolic blood pressure Diastolic blood pressure Provider Name and Address Organization Details Last Updated DateTime 5 170.18 cm 31 kg/m2 32953.2 9 g 107 /min 14 /min 98 % 98 % 99 mm[Hg] 70 mm[Hg] Melinda Marin [place] [employer] [facility] [employer] [facility] 5 11:17:43 Social History Question Answer Notes LastModified by [employer] ion Details LastModified Time Tobacco Smoking Status Never Smoker Not Available [facility] 04/07/2022 05:04:25 What Is Your Level Of Alcohol Consumption? None [id number].[id number] Information not available 04/07/2022 What Is Your Level Of Caffeine Consumption? Occasional [id number].[id number] Information not available 04/07/2022 How Much Tobacco Do You Chew? None MIGRATION.152963 7040 Information not available 04/07/2022 In The 14 Days Before Symptom Onset, Have You Had Close Contact With A Laboratory-confir med COVID-19 While That Case Was Ill? No MIGRATION.[id number] Information not available 04/07/2022 In The 14 Days Before Symptom Onset, Have You Had Close Contact With A Person Who Is Under Investigation For COVID-19 While That Person Was Ill? No MIGRATION.146027 1507 Information not available 04/07/2022 Are You Currently Employed? No [email or web address] Information not available 05/24/2022 What Type Of Diet Are You Following? REGULAR MIGRATION.894911 9662 Information not available 04/07/2022 Which Illicit Or Recreational Drugs Have You Used? None MIGRATION.510929 0336 Information not available 04/07/2022 Do You Or Have You Ever Used E-cigarettes Or Vape? Never Used Electronic Cigarettes MIGRATION.520598 3624 Information not available 04/07/2022 What Is Your Occupation? Unemployed MIGRATION.760874 3473 Information not available 04/07/2022 Have There Been Any Changes To Your Family Or Social Situation? No MIGRATION.026664 7985 Information not available 04/07/2022 Do You Use Insect Repellent Routinely? No MIGRATION.399272 9133 Information not available 04/07/2022 What Was The Date Of Your Most Recent Tobacco Screening? 04/19/2024 Information not available 04/19/2024 What Is Your Relationship Status? Single MIGRATION.134309 0898 Information not available 04/07/2022 Do You Use Your Seat Belt Or Car Seat Routinely? Yes MIGRATION.811665 7274 Information not available 04/07/2022 Do You Have Smoke And Carbon Monoxide Detectors In Your Home? Yes MIGRATION.745764 4314 Information not available 04/07/2022 Do You Or Have You Ever Used Smokeless Tobacco? Never Used Smokeless Tobacco MIGRATION.851157 9598 Information not available 04/07/2022 How Much Tobacco Do You Smoke? No MIGRATION.495347 0257 Information not available 04/07/2022 Do You Use Any Illicit Or Recreational Drugs? No MIGRATION.573786 7745 Information not available 04/07/2022 Do You Use Sunscreen Routinely? Yes MIGRATION.237030 9489 Information not available 04/07/2022 Has Tobacco Cessation Counseling Been Provided? No Information not available 04/19/2024 Have You Recently Traveled Abroad? No MIGRATION.624004 7525 Information not available 04/07/2022 Do You Have Any Dietary Restrictions? No MIGRATION.529200 2697 Information not available 04/07/2022 Do You Or Have You Ever Used Any Other Forms Of Tobacco Or Nicotine? No MIGRATION.215485 9721 Information not available 04/07/2022 Sex: Unknown Functional Status Question Answer Note LastModified by Organizat ion Details LastModified Time Do you have difficulty walking or climbing stairs? No MIGRATION.[id number] 026 Information not available 04/07/2022 Do you have transportation difficulties? Yes MIGRATION.8277912 026 Information not available 04/07/2022 Are you able to walk? YESWOREST MIGRATION.6351071 026 Information not available 04/07/2022 Are you able to care for yourself? No [email or web address] Information n ot available 05/24/2022 Do you have difficulty dressing or bathing? No MIGRATION.1033984 026 Information not available 04/07/2022 What is your exercise level? None MIGRATION.5439126 026 Information not available 04/07/2022 Mental Status Question Answer Note LastModified by Organization D etails LastModified Time Do you have difficulty concentrating, remembering or making decisions? Yes [email or web address] Information no t available 05/24/2022 Family History Relationship Description Onset Age of this Age Resolved Age Notes LastModified by Organization Details LastModified Time Mother Motor vehicle traffic accident [id number] Not available 04/07/2022 05:05:28 Medical History Condition [...] influenza, unspecified formulation 5 completed Not Available [facility] 04/07/2022 05:21:16 Past Encounters Encounter ID Performer Location Encounter Start Date Encounter Closed Date Diagnosis/Indication Diagnosis SNOMED-CT Code Diagnosis ICD10 Code Diagnosis Note [id number] JESSICA Allen [facility] Internal [facility] [place] [address] [place] [address] 07/14/2020 00:00:00 08/02/2020 23:47:21 [id number] [facility] [place] [address] [place] [address] 07/29/2020 00:00:00 08/05/2020 01:23:05 [id number] JESSICA Allen [facility] Internal [facility] [place] [address] [place] [address] 08/27/2020 00:00:00 09/06/2020 08:48:14 [id number] JESSICA Allen [facility] Internal [facility] [place] [address] [place] [address] 04/01/2021 00:00:00 04/04/2021 19:53:54 [id number] JESSICA Allen [facility] Internal [facility] [place] [address] [place] [address] 05/25/2022 14:05:06 05/25/2022 15:31:44 Hypothyroidism 81752230 E03.9 stable on supplement . due for labs. Major depr essive disorder 574998410 F32.9 stable on celexa therapy Blood gluc ose outside reference range 156420080 R73.09 due for a1c screening. Asthma 856445778 J45.90 9 stable. on advair Chronic ur inary tract infection 168779625 N39.0 UA w/cx due Long-term drug therapy 983759622 Z79.899 routine bmp, cbc, and LFT due Osteoporosis 65832055 M8 1.0 vit D screening due Hyperlipidemia 15248137 E78.5 fasting lipids are due Screening mammography 24 759763 Z12.31 mammogram due Unable to cut own toenails 955392808 Z74.1 refer to rental coordinator Seasonal a llergic rhinitis 305655952 J30.2 start loratidine 10mg daily. Screening for malignant neoplasm of colon 330205454 Z12.11 pt would like cologuard testing option. [id number] Nico Bowling DPM [facility] Podiatry [place] [address] [place] [address] 04/19/2024 11:08:22 04/24/2024 09:48:47 Pain in toe 304158675 M79.674 M79.675 secondary to deformitie sRecommend wide supportive shoe gearRecomm end offloading silicone toe sleevesRec ommend monitoring for wounds daily if present seek medical attention immediatel yFollow-up in 3 months for routine foot care Dystrophia unguium 57495 009 L60.3 nails debrided without incident Bunion 581664814 M21.61 9 bilateral worse to the righteduca karena on treatment optionsdoe s not want surgerysho wn conservati ve optionsfol low-up as needed Hammer toe 918871380 M20 .41 M20.42 as above Health Concerns Section Related Observation LastModified by Organization Detai ls LastModified Time None Recorded Concern Status LastModified by Organization Details LastModified Time None Recorded Advance Directives Directive None Recorded Payers Encounter Date Sequence Insurance Name Policy Number Policy Oliveira Covered Member ID Oliveira Member ID Guarantor Name 05/25/2022 1 [place] Dakotah L Jernigan [id number] Dakotah L Jernigan 05/25/2022 2 [place] WHEN MED[place]ARE OR MEDICARE REPLACEMENT PRIMARY) Dakotah L Jernigan [id number] Dakotah L Jernigan 04/19/2024 1 [place] Dakotah L Jernigan [id number] Dakotah L Jernigan 04/19/2024 2 [place] OR MEDICARE REPLACEMENT [place]IMARY) Dakotah L Jernigan [id number] Dakotah L Jernigan Notes Date Note Type [...] palpitations Treatment:taking medication as directed Not Available [employer] 08/05/2020 01:23:05 021 text/ht ml Allergy/sinusitisReported bypatient.Onset/Timing:new [...] fine no more leg swelling Not Available [employer] 09/06/2020 08:48:14 022 text/ht ml EaracheReported bypatient.Location:right [...] medication and due for labs. Not Available [employer] 04/04/2021 19:53:54 023 text/ht ml Anxiety/DepressionReported bypatient.Quality:doesnt [...] changes; no hair changes JESSICA Allen [address], [address], [place], [address], [employer] 06/04/2022 13:50:05 025 text/ht ml Patient presents the office with complaints [...] MPJ bunion deformity. Nico Bowling DPM [address], [address], [place], [address], [employer] 04/19/2024 13:59:42 OBGyn Episode No OBEpisode recorded.
--- OUTSIDE RECORDS SUMMARY | 2024-06-09 16:14 | XMS_ITS | Data Portability ---
Author Organization ISIDRA GEORGETTEMay Franco Address [address] [facility] [place] [address] Care Team Providers Care Fringe Maker Name Role Phone ALEKSANDER VILLANUEVA Primary Care Provider Unavailab le Assessment No assessment recorded. Plan of Treatment Reminders Order Date Submit Date Provider Last Modified By Organization Details Last Modified Time Details Appointments ANY 15 2024 09:00A M JESSICA Allen Not available Not available Not available ANY 15 2024 11:00A M JESSICA Allen Not available Not available Not available Lab urinalysi s, complete 2023 024 [facility], [address] [place] [address], [address], 05/01/2024 12:23:43 culture, urine 2023 024 [facility], [address] [place] [address], [address], 05/01/2024 12:23:58 hepatic function panel, serum [address] [facility], [address] [place] [address], [address], 04/18/2024 09:20:58 BMP, serum or plasma 2023 024 [facility], [address] [place] [address], [address], 05/01/2024 12:23:14 CBC w/ auto diff 2023 024 [facility], [address] [place] [address], [address], 05/01/2024 12:24:29 lipid panel, serum 2023 024 [facility], [address] [place] [address], [address], 05/01/2024 12:24:18 TSH + free T4, serum 2023 024 [facility], [address] [place] [address], [address], 05/01/2024 12:23:37 urinalysi s, complete [address] [facility], [address] [place] [address], [address], 06/30/2023 11:15:22 culture, urine [address] [facility], [address] [place] [address], [address], 06/30/2023 11:15:22 hepatic function panel, serum 2023 024 [facility], [address] [place] [address], [address], 06/15/2023 17:22:48 BMP, serum or plasma 2023 024 [facility], [address] [place] [address], [address], 06/15/2023 17:22:12 CBC w/ auto diff 2023 024 [facility], [address] [place] [address], [address], 06/15/2023 17:24:07 lipid panel, serum 2023 024 [facility], [address] [place] [address], [address], 06/15/2023 17:24:36 TSH + free T4, serum 2023 024 [facility], [address], [place], [address], 06/15/2023 17:23:09 Referral None recorded. Procedures None recorded. Surgeries None recorded. Imaging XR, chest, 2 view 2024 025 [facility] (Imaging), [address] [place] [address] [address] [facility], [place], [address], 04/27/2024 09:55:58 US, duplex, venous, lower extremity , complete 2024 025 [facility] (Imaging), [address] [place] [address] [address], [place], [address], 04/27/2024 11:56:17 US, echocardi ogram, transthor acic, complete, w/ color flow 2024 025 [facility] (Cardiology & Emg), [address] [place] [address] [address], [place], [address], 05/17/2024 11:39:18 DEXA 2023 024 [facility] (Imaging), [facility] [address] [facility], [place], [address], 06/08/2024 14:48:30 Medication Orders Macrobid 100 mg capsule 2024 025 [facility] #[id number], [address] [facility], [place], [place], [id number], 04/17/2024 16:19:49 Advair HFA 115 mcg-21 mcg/actua tion aerosol inhaler 2024 025 [facility] #56786, [address] [facility], [place], [place], [id number], 04/17/2024 16:19:50 furosemid e 20 mg tablet 2024 025 [facility] #42118, [address], [place], [place], [id number], 04/17/2024 16:19:51 potassium chloride ER 10 mEq tablet,ex tended release 2024 [facility] #47045, [address], [place], [place], [id number], 04/17/2024 16:19:49 nitrofura ntoin monohydra te/macroc rystals 100 mg capsule 2023 [email or web address] [facility] #80823, [address], [place], [place], [id number], 01/24/2024 12:10:08 Restasis 0.05 % eye drops in a dropperet te 2023 [facility] #75424, [address], [place], [place], [id number], 04/17/2024 16:02:08 Patient TargetsNo targets recorded. Patient Instructions Encounter Date Encounter Id Patient Instructions Last Modified By Organization Details Last Modified Time 01/24/2024 [id number] A healthy lifestyle: care instructions Not available 01/24/2024 12:11:43 04/17/2024 [id number] A healthy lifestyle: care instructions Not available 05/07/2024 10:08:28 Reason for Referral None Reported. Results Created [...] POC Negat juan miguel Negat juan miguel [facility] CC EDW Not Available Not Available 04/09/2024 10:56:32 03/23/19 25 03/23/2024 SARS- CoV+S ARS-C oV-2 (COVI D-19) Ag [Pres ence] in Respi rator y syste m speci men by Rapid immun oassa y influenza B Ag, POC Negati ve text: negati ve Influ dmitri B Ag, POC Negat juan miguel Negat juan miguel [facility] CC EDW Not Available Not Available 04/09/2024 [...] mptiv e Negat juan miguel, Inval id [facility] CC EDW Not Available Not Available 04/09/2024 10:56:32 03/23/19 25 03/23/2024 SARS- CoV+S ARS-C oV-2 (COVI D-19) Ag [Pres ence] in Respi rator y syste m speci men by Rapid immun oassa y interpretati on and review of laboratory results Normal Not Available Not Available 04/2024 10:56:32 07/26/19 24 07/26/2023 XR, hip + pelvi s, unila teral No observ ation record ed. [address], [address], 07/27/2023 22:59:19 07/27/19 24 07/26/2023 CT, hip + pelvi s, w/o contr ast No observ ation record ed. [address], [address], 07/27/2023 23:00:38 10/31/19 24 10/28/2023 MAMMO , scree barbara, digit al, bilat eral No observ ation record ed. [address], [address], 01/24/2024 11:55:08 02/08/19 25 02/09/2024 imagi ng inter preta tion No observ ation record ed. [email or web address] [address], [place], [address], 02/09/2024 17:06:32 04/28/19 25 04/26/2024 XR, chest , 2 view No observ ation record ed. [address], [place], [address], 04/27/2024 11:57:26 05/18/19 25 05/03/2024 US, echoc ardio gram, trans thora cic, compl ete, w/ color flow No observ ation record ed. [facility] ([facility]iology [facility]) [address] [place] [address] [address] [facility], [place], [address], 05/17/2024 11:39:19 06/10/19 25 06/09/2024 XR, hip, bilat eral No observ ation record ed. [address], [place], [address], 06/09/2024 14:38:32 Result Notes None recorded. Problems Name Problem SNOMED Code Status Onset Date Resolution Date Notes Provider Name and Address Organization Details Recorded Time Fracture of pelvis 56401565 Active 2023 JESSICA Allen Attn: Adriel schaefer,[address] [facility], [place], [address], [facility] 4 11:59:01 Long-term drug therapy Active 2023 JESSICA Allen Attn: Adriel schaefer,[address] [facility], [place], [address], [place] [facility] 4 11:59:02 Hyperlipidemia 45442348 Active 2023 JESSICA Allen Attn: Adriel schaefer,[address] [facility], [place], [address], [place] [facility] 4 11:59:04 Mood disorder 47724400 Active 2023 JESSICA Allen Attn: Catytrupti schaefer,[address] [facility], [place], [address], [place] [facility] 4 11:59:05 Lower urinary tract symptoms 756853337 Active 2023 JESSICA Allen Attn: Catytrupti schaefer,[address] [facility], [place], [address], [place] [facility] 4 11:59:07 Asthma 286039027 Active 2023 JESSICA Allen Attn: Adriel silvano,[address] [facility], [place], [address], [place] [facility] 4 11:59:10 Hypothyroidism 18328415 Active 2023 JESSICA Allen Attn: Adriel silvano,[address] [facility], [place], [address], [place] [facility] 4 11:59:12 Body mass index 25-29 - overweight 564609269 Active 2023 JESSICA Allen Attn: Catytrupti schaefer,[address] [place], [address], [place] [facility] 4 11:59:32 Overweight 362230704 Active 2023 JESSICA Allen Attn: Adriel silvano,[address] [place], [address], [place] [facility] 4 11:59:33 Body mass index 30+ - obesity 129074942 Active 2024 JESSICA Allen Attn: Adriel silvano,[address] [place], [address], [place] [facility] 5 16:14:35 Problem Notes None recorded. Procedures Surgical History Date Name Laterality Status Provider Name and Address Organization Details Recorded Time Joint Replacement completed ARMANDO Reese - [facility] 05/17/2023 13:17:42 ligation of bilateral fallopian tubes completed ARMANDO Reese - [facility] 05/17/2023 13:18:14 Imaging Results Imaging Date Name Status LastModified by Organization Details LastModified Time 07/26/2023 XR, hip + pelvis, unilateral completed [address] [facility], [place], [address], 07/27/2023 22:59:19 07/26/2023 CT, hip + pelvis, w/o contrast completed [address] [address], [place], [address], 07/27/2023 23:00:38 10/28/2023 MAMMO, screening, digital, bilateral completed [address] [address], [place], [address], 01/24/2024 11:55:08 02/09/2024 imaging interpretation completed [address] [address], [place], [address], 02/09/2024 17:06:32 04/26/2024 XR, chest, 2 view completed [address] [address], [place], [address], 04/27/2024 11:57:26 05/03/2024 US, echocardiogram, transthoracic, complete, w/ color flow completed [facility] ([facility]) [address] [place] [address], [address], 05/17/2024 11:39:19 06/09/2024 XR, hip, bilateral completed [address], [address], 06/09/2024 14:38:32 Procedure Notes None recorded. Medical Equipment None Reported. Allergies Allergen ID Allergen Name Allergen Category Reaction Reaction Severity Criticality Documentation Date Start Date Code Code System Note Provider Name and Address Organization Details Recorded Time 043144 Product containin g penicilli n (product) medicatio n Not available Not available Not available 05/17/2023 16631 8001 SNOMED Brian Rudolph MA null, [place] - [facility] 4 11:29:59 942786 Bactrim medicatio n Not available Not available Not available 05/17/2023 81771 9 RxNorm Brian Rudolph [place], [place] [facility] 4 11:30:07 417984 Cipro medicatio n Not available Not available Not available 07/05/202384365 3 RxNorm Elin BaronCALI null, [place] - [facility] 4 10:58:16 Medications Name Sig Start Date Stop Date [...] sulfate HFA 90 mcg/actua tion aerosol inhaler Two puffs inhaled every 4-6 hours as needed 2024 active Not Available Not Available Not Avai lable cyclospor ine 0.05 % eye drops in [...] quetiapin e [address] tablet [address] [facility] active Not Available Not Available No [...] 4 168.28 cm 18 /min 28.8 kg/m2 58159.6 3 g 97 % 97 % 60 [...] % 97 % 76 /min 29.2 kg/m2 35022.8 1 g 18 /min 128 mm[Hg] 80 mm[Hg] Brian Rudolph MA [facility] 11:52:04 Date Recorded Systolic blood pressure Diastolic blood pressure Provider Name and Address Organization Details Last Updated DateTime 01/24/2024 120 mm[Hg] 80 mm[Hg] JESSICA Allen Attn: Accounting,[address] [place], [address], [facility] 01/24/2024 12:09:23 Date Recorded Body height Body mass index (BMI) Body weight Heart rate Oxygen saturation Oxygen saturation in Arterial blood by Pulse oximetry Body temperature Systolic blood pressure Diastolic blood pressure Provider Name and Address Organization Details Last Updated DateTime 168.28 cm 31.3 kg/m2 07749.8 7 g 100 /min 99 % 99 % 98.5 [degF] 122 mm[Hg] 80 mm[Hg] Frances Dominguez MA [facility] 15:47:56 Date Recorded Respiratory rate Systolic blood pressure Diastolic blood pressure Provider Name and Address Organization Details Last Updated DateTime 04/17/2024 16 /min 110 mm[Hg] 80 mm[Hg] JESSICA Allen Attn: Accounting, [address] [place], [address], [facility] 04/17/2024 16:15:27 Social History Question Answer Notes LastModified by Organizat ion Details LastModified Time Tobacco Smoking Status Never Smoker Brian Rudolph MA null, [facility] 01/24/2024 11:49:21 Do You Have An [...] Skin Problems N Anemia Y Heart Attack ([place]) N Anxiety Disorder Y Diabetes N Muscle, Joint, or Bone Problems N Seizures/Epilepsy N Acid Reflux (GERD) N Cancer N Stroke N Asthma Y Allergies N High Cholesterol N Hepatitis N Liver Disease N Headaches N Osteoporosis N Heart Failure N Gynecological History Statement/Question Response Menses Monthly [...] 01/24/2024 11:49:45 influenza, unspecified formulation 05/10/2011 completed ARMAND[place] [facility] 01/24/2024 11:49:45 Tdap 09/21/2012 [place] [facility] 01/24/2024 11:49:45 Tdap 09/22/2020 [place] [facility] 01/24/2024 11:49:45 DTP 09/21/2012 [place] [facility] 01/24/2024 11:49:45 pneumococcal, unspecified formulation 05/10/2011 completed Brian Rudolph [place] [facility] 01/24/2024 11:49:45 Influenza, split virus, quadrivalent, PF 11/21/2020 completed [place] [facility] 01/24/2024 11:49:45 Past Encounters Encounter ID Performer Location Encounter Start Date Encounter Closed Date Diagnosis/Indication Diagnosis SNOMED-CT Code Diagnosis ICD10 Code Diagnosis Note [id number] Ace Acevedo MD [facility] [employer] [address] [place] [address] 05/17/2023 11:19:47 05/17/2023 12:49:10 Hypothyroidism 98012777 E03.9 Stable on levothyrox ine 50mcg daily and due for updated TFT panel. Asthma 045967324 J45.90 9 pt is currently stable with asthma on advair hfa 115mcg /21mcg Cholesterol screening 27 6509869 Z13.220 fasting lipids due. Long-term drug therapy 393312084 Z79.899 routine bmp, LFT, and CBC due. Dry eyes 779450334 H04.1 23 Rx trial of restasis eye drops as directed. she should also see her eye doctor. Lower urin shadi tract symptoms 199997745 R39.9 pt c/o of urinary frequency and some mild dysuria. start macrobid 100mg bid course x 7 days and then check UA w/cx after. Mood disorder 95188406 F 39 exact DSM IV diagnosis is not known to this provider, but patient is on quetiapine , citalopram , and risperidon e from psychiatry . [id number] Ace Acevedo MD [facility] [employer] [address] [place] [address] 01/24/2024 11:44:31 01/24/2024 12:18:41 Hypothyroidism 92941856 E03.9 Stable on levothyrox ine 50mcg daily and due for updated TFT panel. Asthma 154570283 J45.90 9 pt is currently stable with asthma on advair hfa 115mcg /21mcg, asthma is stable at this time Lower urin shadi tract symptoms 607814868 R39.9 pt c/o of urinary frequency and frequent UTIs. We will check a routine culture with urine Mood disorder 05154154 F 39 exact DSM IV diagnosis is not known to this provider, but patient is on quetiapine , citalopram , and risperidon e from psychiatry . Long-term drug therapy 015464215 Z79.899 routine bmp, LFT, and CBC due. Fracture of pelvis 819[address] 009 S32.9XXA History of fracture of pelvis this year. We will send her for a DEXA scan that is due Hyperlipidemia 12738927 E78.5 Fasting lipid panel is due Body mass index 25-29 - overweight 699169395 Z68.29 bmi 29.2 Overweight 727219479 E66 .3 discussed healthy diet, exercise, controllin g carbohydra mariam and added sugars in the diet [id number] Ace Acevedo MD [facility] [employer] [place] [address] [place] [address] 04/17/2024 15:08:03 04/17/2024 16:21:24 Body mass index 30+ - obesity 615726255 Z68.31 Chronic ob structive pulmonary disease 48841066 J44.9 Refill advair hfa as directed, check CXR update and space/faustou amandaer sent out. Bilateral lower leg edema 535269846 R60.0 Start brief course of furosemide 20mg daily x 7 days, and add KCL 10meq daily x 7 days. check u/s duplex bilat complete and complete echo doppler. Urinary tr act infectious disease 89809559 N39.0 refill macrobid 100mg bid for LUTS/UTI Obesity 763401346 E66.9 Health Concerns Section Related Observation LastModified by Organization Detai ls LastModified Time None Recorded Concern Status LastModified by Organization Details LastModified Time None Recorded Advance Directives Directive Y: Payers Encounter Date Sequence Insurance Name Policy Number Policy Oliveira Covered Member ID Oliveira Member ID Guarantor Name 05/17/2023 2 [place] WHEN MED[place]ARE OR MEDICARE REPLACEMENT PRIMARY) Dakotah Delon [id number] Dakotah Jernigan 05/17/2023 1 [place] Dakotah Jernigan [id number] Dakotah Jernigan 01/24/2024 2 [place] WHEN [place] OR MEDICARE REPLACEMENT PRIMARY) Dakotah Jernigan [id number] Dakotah Jernigan 01/24/2024 1 [place] Dakotah Jernigan [id number] Dakotah Jernigan 04/17/2024 2 [place] WHEN [place] OR MEDIC[place]PLACEMENT PRIMARY) Dakotah Jernigan [id number] Dakotah Jernigan 04/17/2024 1 [place] Dakotah Jernigan [id number] Dakotah Jernigan Notes Date Note Type Note [...] weather related. JESSICA Allen Attn: Accounting, [address] [place], [address], [place] [facility] 06/05/2023 15:26:41 01/24/20 24 [...] DEXA scan JESSICA Allen Attn: Accounting, [address] [facility], [place], [address], [facility] 02/07/2024 12:21:58 04/18/19 25 text/htm l COPDReported bypatient.Onset/Timing:chronic Duration:has noted for years Severity:moderate Alleviating factors:relieved with bronchodilator Aggravating factors:nothing makes it worse Associated Symptoms:no cough; no fever; no wheezingEdemaReported bypatient.Quality:legs swell equally Severity:mild Duration:constant Onset/Timing:gradual onset Context:no new medications; normal salt intake; no recent travel;prior history of edema;prior history of deep vein thrombosis Modifying Factors:nothing gives relief Associated Symptoms:no shortness of breath; no shortness of breath during exertion; no cough; no orthopnea; no paroxysmal nocturnal dyspnea (PND);swelling in lower legs only;weight gain ( lbs)Lower Urinary Tract Symptoms (LUTS)Reported bypatient.Location:bladder Severity:painless Duration:4-10 times a day Context:denies excessive fluid intake; denies excessive caffeine intake; no dyspareunia; denies new medication treatment Associated Symptoms:urgency;frequencyNotes: History of frequent UTIs with some lower urinary tract symptoms/increased frequency JESSICA Allen Attn: Accounting, [address] [facility], [place], [address], [facility] 05/07/2024 10:08:44 OBGyn Episode No OBEpisode recorded.
--- OUTSIDE RECORDS SUMMARY | 2024-06-09 16:14 | XMS_ITS | Encounter Summary ---
Author Organization [facility] Address [address] [place] [address] Care Team Providers Care Acid Etch Operator Name Role Phone Elena Payton Primary Care Provider [phone] Robbin Rodgers MD Unavailable Encounter Details Date Type Department Care Team (Latest Contact Info) Description 12/13/2017 Abstract [facility] Cayetano Day MD Social History [...] on filedocumented in this encounter Care Teams Acid Etch Operator Relationship Specialty Start Date End Date Elena Payton PA [facility] [address] [place] [address] PCP - General 12/28/16 Robbin Rodgers MD [address] [address] Referring Physician VASCULAR SURGERY 12/28/16 documented as of this encounter
--- OUTSIDE RECORDS SUMMARY | 2024-06-09 16:14 | XMS_ITS | Clinical Summary ---
Author Organization [facility] Address [address] [place] [address] Care Team Providers Care Senior Sustainability Consultant Name Role Phone Elena Payton Primary Care Provider [phone] Allergies Active Allergy Reactions Criticality Noted Date [...] on file Legal Sex Female 11:43 AM ENGINE TESTING SUPERVISOR Gender Identity Not on file Sexual Orientation Not on file Last Filed Vital Signs Vital Sign Reading Time Taken Comments Blood Pressure 106/62 01/18/2017 3:02 PM ENGINE TESTING SUPERVISOR Pulse 75 01/18/2017 3:02 PM ENGINE TESTING SUPERVISOR Temperature - - Respiratory Rate - - Oxygen Saturation 97% 01/18/2017 3:02 PM ENGINE TESTING SUPERVISOR Inhaled Oxygen Concentration - - Weight 69.4 kg (153 lb) 01/18/2017 3:02 PM ENGINE TESTING SUPERVISOR Height 171.5 cm (5' 7.5 ) 01/18/2017 3:02 PM ENGINE TESTING SUPERVISOR Body Mass Index 23.61 01/18/2017 3:02 PM ENGINE TESTING SUPERVISOR Plan of Treatment Health Maintenance Due Date [...] MEDICARE PART A AND B Care Teams Senior Sustainability Consultant Relationship Specialty Start Date End Date Elena Payton PA PCP - General Physician Blood Bank Business Manager 01/18/17
--- OUTSIDE RECORDS SUMMARY | 2024-06-09 16:14 | XMS_ITS | Patient Health Record ---
Author Organization [facility] Address [address] [place] [address] Care Team Providers Care Fulfillment Representative Name Role Phone Jewel Gonzales Primary Care Provider [phone] [facility] [address] Services Unav ailable Unavailable Allergies Allergen (clinical [...] Status W/U Status Risk Notes Problem Anxiety (46689237) Anxiety (F41.9) 11/06/2021 Active confirmed Problem Bipolar 1 disorder (431969964) Bipolar 1 disorder (F31.9) 11/06/2021 Active confirmed Vital Signs Heart Rate 79 /min 03/20/2024 Respiratory Rate 16 /min 03/20/2024 Oximetry 97 % 03/20/2024 Blood pressure diastolic 82 mm Hg 03/20/2024 Height 67 in 03/20/2024 Blood pressure systolic 126 mm Hg 03/20/2024 Weight 181.8 lbs 03/20/2024 BMI 28.47 kg/m2 03/20/2024 Encounters Encounter Location Date Provider Diagnosis [address] [address] 06/14/2023 Arif Habib Anxiety F41.9 and Bipolar [address] disorder F[address] [address] 10/04/2023 Arif Habib Nutritional counseli ng Z71.3 ; Anxiety F41.9 and Bipolar 1 disorder F[address] [address] 12/27/2023 Arif Habib Anxiety F41.9 and Bipolar 1 disorder F31.[address] [address] 03/20/2024 Arif Habib Nutritional counseli ng Z71.3 ; Anxiety F41.9 and Bipolar 1 disorder F31.[address] [address] 08/18/2023 Arif Habib Assessments Encounter Date Diagnosis [...] No involuntary movements reported. Plan Of Treatment Next Appt Details Provider Name:Jewel Gonzales, 02:00:00 PM, [address] [facility] [address], [place], [address], Insurance Providers Payer Name Payer Address Payer Phone Subscriber Number Group Number Insured Name Patient Relationship to Insured Coverage Start Date Coverage End Date MEDICARE PART A [address] [place] [address] [id number] JerniganSherwin hanseni Self - patient is the insured 5 [employer] Medicare [address] [place] [address] [id number] JerniganSherwin hanseni Self - patient is the insured 1 1 MEDICAID [address] [facility] [place] [id number] JerniganSherwin hanseni Self - patient is the insured 0 [facility] Medicare Assure [address] [address] [place] [address] [phone] [id number] [place] Jernigani Self - patient is the insured 2 2 Medical (General) History Medical History History ICD Code COPD Surgical History Surgery Date(Month/Year) Broken ankle surg and Rehab Sep 2018 UTI/Dehydration, hospitalized 2014 Pnuemonia 2013 Bilateral hip replacements 1999 Tubal Ligation 1997 Hospitalization History Reason Date(Month/Year) broken pelvic bone [facility] for exacerbation of COPD A pril 2021 [facility] for indigestion and UTI Sep 2020 ER visits for blood clots, kidney stones ,asthma attacks
== END 2024-06-09 10:04 | disposition home or self-care (01) ==
PROVIDERS: PCP Physician Assistant; Visit Provider Physician Assistant
DX: S32.592A Other specified fracture of left pubis, initial encounter for closed fracture (principal); Z96.643 Presence of artificial hip joint, bilateral; X58.XXXA Exposure to other specified factors, initial encounter
CPT/HCPCS: 73521

== ENCOUNTER 2024-07-07 21:14 | Emergency (ER) | payer MEDICARE, MEDICAID, SELFPAY ==
--- NOTE | ~2024-07-07 | XR_ITS ---
XR chest 2V Ordering provider: Keyana Cabral PA-C History: 69 years Female with . sob . Comparison: April 26, 2024 FINDINGS: MEDIASTINUM: The cardiac silhouette is slightly enlarged. LUNGS: No effusions or pneumothorax. Minimal opacification in the right lung base suggestive of atele ctasis versus pneumonia. Clinical correlation and follow-up advised. OTHER: No free air under the diaphragm. IMPRESSION: Right basilar atelectasis versus pneumonia. Reviewed, dictated and finalized at location A.
[2024-07-07 21:16] VITALS: BP 147/69; PULSE 76; RESP 21; TEMP 36.9; O2SAT 98
--- NOTE | 2024-07-07 21:23 | ECG_ITS ---
Test Date: 2024-07-07 21:28:21 Measurements Intervals [place] Rate: 69 P: 60 CA: 163 QRS: 19 QRSD: 98 T: 11 QT: 374 QTc: 403 Interpretive Statements SINUS RHYTHM BORDERLINE ST-T WAVE ABNORMALITY- INFERIOR LEADS BASELINE ARTIFACT- I, II, III, AVR, AVL, AVF, V1-V6 BORDERLINE ECG Compared to ECG 02/09/2024 06:10:19 NO SIGNIFICANT CHANGE Electronically Signed On 07-08-2024 07:09:12 CDT by Mat Munoz D.O.
[2024-07-07 21:28] VITALS: BP 146/63; PULSE 80; RESP 23; TEMP 36.9; O2SAT 96
--- OUTSIDE RECORDS SUMMARY | 2024-07-07 21:34 | XMS_ITS | Clinical Summary ---
Author Organization [facility] [place] [address] Address [address] [place] [address] Care Team Providers Care Insulation Board Back Tender Name Role Phone Elena Payton Primary Care Pr ovider Allergies Active Allergy Reactions Criticality Noted Date Comments Ciprofloxacin Nausea & Vomiting Low 07/03/2024 Codeine Itching,Unknown Low 12/28/2016 Penicillins Fever,Shortness of breath,Unknown High 12/28/2016 Sulfa (Sulfonamide Antibiotics) Itching,Nausea And Vomiting,Unknown Medium 12/28/2016 Sulfamethoxazole-Trimethoprim Itching,Na usea And Vomiting,Unknown Low 12/28/2016 Unclassified Drug Unknown 12/28/2016 Medications inhalat.spacing dev,large mask (OptiChamber Ivette Lg Mask) spacer OptiChamber Ivette [facility] with Large Mask Active albuterol 2.5 mg /3 mL (0.083 %) nebulizer solution albuterol sulfate 2.5 mg/3 mL (0.083 %) solution for nebulization USE 3 ML VIA NEBULIZER FOUR TIMES DAILY NEEDED Active cetirizine (ZyrTEC) 10 mg tablet TAKE 1 TABLET BY MOUTH EVERY DAY NEEDED FOR ALLERGY SYMPTOMS 12/03/19 22 Active citalopram (CeleXA) 20 mg tablet citalopram 20 mg tablet TAKE 1 TABLET BY MOUTH EVERY DAY 12/16/19 17 Active benztropine (COGENTIN) 0.5 mg tablet Take 1 tablet (0.5 mg total) by mouth nightly at bedtime 03/16/19 23 Active clonazePAM (KlonoPIN) 1 mg tablet Take 1 tablet (1 mg total) by mouth 2 (two) times a day 03/16/19 23 Active fluticasone propion-salmete roL (ADVAIR HFA) 115-21 mcg/actuation inhaler INL 1 PUFF PO Q 12 H 11/20/19 17 Active levothyroxine (SYNTHROID) 50 mcg tablet Take 1 tablet (50 mcg total) by mouth daily 02/12/19 23 Active progesterone (PROMETRIUM) 100 mg capsule Take by mouth daily 10/30/19 17 Active QUEtiapine (SEROquel) 200 mg tablet Take 1 tablet (200 mg total) by mouth nightly at bedtime 03/16/19 23 Active QUEtiapine (SEROquel) 50 mg tablet Take 1 tablet (50 mg total) by mouth daily 03/16/19 23 Active risperiDONE (RisperDAL) 2 mg tablet Take 1 tablet (2 mg total) by mouth daily 03/16/19 23 Active azithromycin (ZITHROMAX) 250 mg tablet Take 2 tabs (500 mg) by mouth today, than 1 tab (250 mg) daily for 4 days. 6 tablet 07/04/19 25 Active azithromycin (ZITHROMAX) 250 mg tabletIndicatio ns:Lower respiratory infection (e.g., bronchitis, pneumonia, pneumonitis, pulmonitis) Take 2 tablets the first day, then 1 tablet daily for 4 days. 6 tablet 03/23/19 25 025 Discontin ued(Thera py completed ) Active Problems Problem Noted Date Diagnosed Date Secondary hypercoagulable state 01/18/2017 Deep vein thrombosis (DVT) of lower extremity Hematuria 01/11/2017 Anemia, unspecified 05/05/2015 Anxiety disorder, unspecified 05/05/2015 Bipolar disorder, unspecified 11/17/2011 Hypothyroidism, unspecified 11/17/2011 Unspecified asthma, uncomplicated 11/17/2011 Encounters Date Type Department Care Team Description 07/03/2024 12:40 PM CDT Ancillary Procedure [facility] at [address] [id number] Sore throat 07/03/2024 12:35 PM CDT Ancillary Procedure [facility] at [address] [phone] Sore throat 07/03/2024 11:45 AM CDT Office Visit [facility] at [address] [phone] Aretha Okeefe PA Acute cough (Primary Dx); Acute pain of right shoulder from Last 3 Months Social History Tobacco Use Types Packs/Day Years Used Date Smoking Tobacco: Former Cigarettes Tobacco Cessation:Counseling Given: Not Answered Comments Unknown Sex and Gender Information Value Date Recorded Sex Assigned at Not on file 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 Gender Identity Not on file Sexual Orientation Not on file Obstetrics History Last Filed Vital Signs Vital Sign Reading Time Taken Comments Blood Pressure 120/69 07/03/2024 12:07 PM CDT Pulse 84 07/03/2024 12:07 PM CDT Temperature 36.7 C (98.1 F) 07/03/2024 12:07 PM CDT Respiratory Rate 18 07/03/2024 12:07 PM CDT Oxygen Saturation 95% 07/03/2024 12:07 PM CDT Inhaled Oxygen Concentration - - Weight 89 kg (196 lb 1.6 oz) 07/03/2024 12:07 PM CDT Height 170.2 cm (5' 7.01) 07/03/2024 12:07 PM C DT Body Mass Index 30.71 07/03/2024 12:07 PM CDT Plan of Treatment Health Maintenance Due Date [...] 04/06/2020, 03/16/2020 Influenza Vaccine (Season Ended) 2024 12/21/2022, 11/21/2020, 02/07/2014, Additional history exists DTaP/Tdap/Td Vaccine (4 - Td or Tdap) 09/22/2030 09/22/2020, 09/21/2012, 09/21/2012 Procedures Procedure Name Priority Date/Time Associated Diagnosis Comments XR CHEST PA LATERAL 2 VIEWS Schedule LC, Read LC (Appt Today, Awaiting Results) 07/03/2024 12:47 PM CDT Sore throat XR SHOULDER RIGHT 2 OR MORE VIEWS Schedule LC, Read LC (Appt Today, Awaiting Results) 07/03/2024 12:47 PM CDT Sore throat POCT RAPID STREP Routine 07/03/2024 12:2 5 PM CDT Acute cough SCREENING MAMMOGRAM BILATERAL W YOSEF Routine 06/22/2016 9:57 AM CDT from Last 3 Months or Most Recently Relevant to Health Maintenance Results * XR Chest Pa Lateral 2 Views (07/03/2024 12:47 PM CDT) Anatomical Region Laterality Modality Body, Chest N/A Digital Radiogra phy 07/03/2024 1:25 PM CDT Narrative 07/03/2024 1:28 PM CDT EXAM DESCRIPTION: XR CHEST PA LATERAL 2 VIEWS REASON FOR STUDY: cough Pt complains of cough x 1 week. No asthma,copd,cancer,heart disease. No chest surgery. Non smoker TECHNIQUE: 2 radiographic view(s) of the chest. COMPARISON: 03/23/2024 FINDINGS: LUNGS: No focal opacity, pleural effusion, or pneumothorax. HEART/MEDIASTINUM: Cardiac silhouette normal in size. Mediastinal and hilar contours appear normal. LINES/TUBES: None. BONES: No acute osseous abnormality. IMPRESSION: No acute cardiopulmonary abnormality. THIS IS AN ELECTRONICALLY VERIFIED FINAL REPORT 07/03/2024 1:28 PM - Electronically signed by Jimbo Lemus M.D. KR T: Report ID: [id number] Reading Location: [id number] Procedure Note Jimbo Lemus MD - 07/03/2024 EXAM DESCRIPTION: XR CHEST PA LATERAL 2 VIEWS REASON FOR STUDY: cough Pt complains of cough x 1 week. No asthma,copd,cancer,heart disease. Nochest surgery. Non smoker TECHNIQUE: 2 radiographic view(s) of the chest. COMPARISON: 03/23/2024 FINDINGS: LUNGS: No focal opacity, pleural effusion, or pneumothorax. HEART/MEDIASTINUM: Cardiac silhouette normal in size. Mediastinal andhilar contours appear normal. LINES/TUBES: None. BONES: No acute osseous abnormality. IMPRESSION: No acute cardiopulmonary abnormality. THIS IS AN ELECTRONICALLY VERIFIED FINAL REPORT 07/03/2024 1:28 PM - Electronically signed by Jimbo RICKS T: Report ID: [id number] Reading Location: [id number] Aretha LOPZE IMG XR PROCEDURES Final Result * XR Shoulder Right 2+ Vw (07/03/2024 12:47 PM CDT) Anatomical Region Laterality Modality Upper Extremities, Shoulder Right Digi memo Radiography 07/03/2024 1:17 PM CDT Narrative 07/03/2024 1:25 PM CDT EXAM DESCRIPTION: XR SHOULDER RIGHT 2 OR MORE VIEWS REASON FOR STUDY: fall Pt complains of shoulder pain after a fall today. No prior fx or surgery TECHNIQUE: Four radiographic view(s) of the left shoulder . COMPARISON: None FINDINGS: No acute fracture or dislocation. There is mild osteoarthritis of the glenohumeral joint. The soft tissues are unremarkable. IMPRESSION: No acute osseous abnormality. Mild osteoarthritis of the glenohumeral joint. THIS IS AN ELECTRONICALLY VERIFIED FINAL REPORT 07/03/2024 1:25 PM - Electronically signed by Jimbo RICKS T: Report ID: [id number] Reading Location: [id number] Procedure Note Jimbo Lemus MD - 07/03/2024 EXAM DESCRIPTION: XR SHOULDER RIGHT 2 OR MORE VIEWS REASON FOR STUDY: fall Pt complains of shoulder pain after a fall today. No prior fx or surgery TECHNIQUE: Four radiographic view(s) of the left shoulder . COMPARISON: None FINDINGS: No acute fracture or dislocation. There is mild osteoarthritisof the glenohumeral joint. The soft tissues are unremarkable. IMPRESSION: No acute osseous abnormality. Mild osteoarthritis of the glenohumeral joint. THIS IS AN ELECTRONICALLY VERIFIED FINAL REPORT 07/03/2024 1:25 PM - Electronically signed by Jimbo RICKS T: Report ID: [id number] Reading Location: [id number] us Aretha LOPEZ IMG XR PROCEDURES Final Result * POCT rapid strep A (07/03/2024 12:25 PM CDT) Rapid Strep A, POC Negative Negative Swab 07/03/2024 12:2 5 PM CDT us Aretha LOPEZ POINT OF CARE TEST ORDER DEBBY Final Result * Screening Mammogram Bilateral W [...] signed by: Edy Olsen M.D., md/:06/22/2016 11:03:24 Pay Agent: Jaz BARAJAS)Tello), [facility] letter sent: Normal Exam Reading location: BI-RADS: [...] mammogram, 04/18/2013 mammogram, and 03/24/2012 mammogram - [facility]. BREAST TISSUE: The tissue of [...] mammogram, 04/18/2013 mammogram, and 03/24/2012 mammogram - [facility]. BREAST TISSUE: The tissue of both [...] signed by: Edy Olsen M.D., md/:06/22/2016 11:03:24 Pay Agent: Jaz BARAJAS)(M), [facility] letter sent: Normal Exam Reading location: BI-RADS: 2 Benign [EOD] us Eelna Garces Tata LOPEZ IMG MAMMO PROCED URES Final Result from Last 3 Months or Most Recently Relevant to Health Maintenance Insurance * Guarantor: Dakotah Jernigan Account Type Relation to Patient Date of Phone Billing Address Personal/Family Self 1955 [address] [place] [id number] [facility] MEDICARE * Guarantor: Dakotah Jernigan Account Type Relation to Patient Date of Phone Billing Address Personal/Family Self 1955 [address] [place] [id number] MEDICARE IDPA Care Teams Insulation Board Back Tender Relationship Specialty Start Date End Date Elena Payton PA PCP - General Physician Solar System Designer 09/11/18
--- OUTSIDE RECORDS SUMMARY | 2024-07-07 21:34 | XMS_ITS | Clinical Summary ---
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 Gender Identity Not on file Sexual Orientation Not on file Last Filed Vital Signs Vital Sign Reading Time Taken Comments Blood Pressure 106/62 01/18/2017 3:02 PM OUTPATIENT CLERK Pulse 75 01/18/2017 3:02 PM OUTPATIENT CLERK Temperature - - Respiratory Rate - - Oxygen Saturation 97% 01/18/2017 3:02 PM OUTPATIENT CLERK Inhaled Oxygen Concentration - - Weight 69.4 kg (153 lb) 01/18/2017 3:02 PM OUTPATIENT CLERK Height 171.5 cm (5' 7.5) 01/18/2017 3:02 PM OUTPATIENT CLERK Body Mass Index 23.61 01/18/2017 3:02 PM OUTPATIENT CLERK Plan of Treatment Health Maintenance Due Date [...] MEDICARE PART A AND B Care Teams Water/Wastewater Project Engineer Relationship Specialty Start Date End Date Elena Payton PA PCP - General Physician Metal Window Screen Assembler 01/18/17
--- OUTSIDE RECORDS SUMMARY | 2024-07-07 21:34 | XMS_ITS | Data Portability ---
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 Force Dispatcher variances may occur. Despite proofreading, typographical errors may occur. Occasional wrong-word or 'tbuwv-w-dupa' substitutions may have occurred due to the inherent limitations of voice recording. Read the chart carefully and recognize, using context, where substitutions have occurred. [email or web address] Not available 04/19/2024 12:00:51 Plan of Treatment Reminders Order Date Submit Date Provider Last Modified By Organization Details Last Modified Time Details Appointments Establish ed Patient 15 2024 04:00P Rey Bowling DPM Not available Not available Not available Lab vitamin D, 25-hydrox y, total, serum [address] (Lab), [address] [place] [address], [phone], 11/29/2022 12:43:40 HbA1c (hemoglob in A1c), blood [address] (Lab), [address] [place] [address], [address], 11/29/2022 12:43:39 BMP, serum or plasma [address] (Lab), [address] [place] [address], [address], 11/29/2022 12:43:39 CBC w/ auto diff [address] (Lab), [address] [place] [address], [id number], 11/29/2022 12:43:39 hepatic function panel, serum [address] (Lab), [address] [place] [address], [address], 11/29/2022 12:43:40 lipid panel, serum [address] (Lab), [address] [place] [address], [address], 11/29/2022 12:43:40 noninvasi ve colorecta l cancer DNA + occult blood screening , QL, stool 2022 023 [place] [address] [facility] (Cologuard Orders Only), [address], [address], [place], [address], 03/04/2023 14:59:43 urinalysi s complete, reflex culture [address] (Lab), [address] [place] [address], [address], 11/29/2022 12:43:39 T4, free, serum [address] (Lab), [address] [place] [address], [address], 11/29/2022 12:43:39 TSH, serum or plasma 2022 023 [facility] (Lab), [address] [place] [address], [address], 11/01/2022 14:26:30 Referral podiatris t referral 2022 023 [facility] Nico Bowling DPM, [address] [facility], [address], [place], [address], 01/09/2023 05:01:27 Procedures None recorded. Surgeries None recorded. Imaging MAMMO, screening , digital, bilateral 2022 023 [facility] (Mammography) , [address], [place], [address], 07/30/2022 16:28:21 Medication Orders loratadin e 10 mg tablet 2022 023 [id number], [address], [place], [place], [phone], 05/25/2022 17:48:17 Patient TargetsNo targets recorded. Patient InstructionsNo instructions recorded. 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 [id number] Not Available 04/07/2022 05:21:49 12/17/19 21 11/20/2020 CT, abdom en + pelvi s, w/ contr ast No observ ation record ed. [id number] [facility] (Imaging) [address], [place], [address], 04/07/2022 05:21:49 12/18/19 21 11/23/2020 CT, angio gram, chest , w/ contr ast No observ ation record ed. MIGRATION. [address] [facility], [place], [address], 04/07/2022 05:21:49 12/18/19 21 11/23/2020 XR, chest , 2 view No observ ation record ed. MIGRATION. [facility] (Imaging) [address] [place] [address] [facility] [place], [address], 04/07/2022 05:21:49 04/15/19 22 04/12/2021 XR, chest No observ ation record ed. MIGRATION. [facility] (Imaging) [address] [place] [address] [facility], [place], [address], 04/07/2022 05:21:49 04/18/19 22 03/26/2021 US, doppl er, venou s No observ ation record ed. MIGRATION. [id number] Not Available 04/07/2022 05:21:49 04/28/19 22 04/27/2021 MAMMO , scree barbara, digit al, bilat eral No observ ation record ed. MIGRATION. Not Available 04/07/2022 05:21:49 06/23/19 22 06/22/2021 CT, abdom en + pelvi s, w/ contr ast No observ ation record ed. MIGRATION. [address] [facility], [place], [address], 04/07/2022 05:21:49 10/30/19 22 10/19/2021 US, doppl er, venou s No observ ation record ed. MIGRATION. [address] [facility], [place], [address], 04/07/2022 05:21:49 12/17/19 22 12/15/2021 XR, chest No observ ation record ed. MIGRATION. [facility] (Human Resources) [address], [place], [address], 04/07/2022 05:21:49 07/31/1907/29/2022 MAMMO , scree barbara, digit al, bilat eral No observ ation record ed. [email or web address] [facility] [address], [place], [address], 10/26/2022 18:26:57 12/10/1909/15/2022 XR, foot No observ ation record ed. [email or web address] [facility] [address], [place], [address], 12/13/2022 17:13:24 Result Notes None recorded. Problems Name Problem SNOMED Code Status Onset Date Resolution Date Notes Provider Name and Address Organization Details Recorded Time Impacted cerumen of bilateral ears 2911265610920 108 Active 2021 Not Available [facility] 3 05:13:46 Trimalleol ar fracture 054221251 Active 2018 Not Available [facility] 3 05:13:46 Trimalleol ar fracture 487739010 Active 2018 Not Available [facility] 3 05:13:46 Bipolar disorder 43849176 Active Not Available [facility] 3 05:13:46 Blood glucose outside reference range 292648358 Active Not Available [facility] 3 05:13:46 Chronic urinary tract infection 960546948 Active Not Available [facility] 3 05:13:46 Pain of joint of elbow 414281071 Active Not Available [facility] 3 05:13:46 Long-term drug therapy Active 2021 Not Available [facility] 3 05:13:46 Anemia 811338122 Active Not Available [facility] 3 05:13:46 Eruption 157195164 Active Not Available [facility] 3 05:13:46 Cholestero l screening Active 2021 Not Available [facility] 3 05:13:46 Vaginal lesion 157641230 Active Not Available [facility] 3 05:13:46 Lower urinary tract symptoms 694883090 Active 2021 Not Available [facility] 3 05:13:46 Otitis externa 3458482 Active Not Available [facility] 3 05:13:46 Pain in left knee Active Not Available [facility] 3 05:13:47 Major depressive disorder 583640671 Active Not Available [facility] 3 05:13:47 Impairment of balance 396365957 Active Not Available [facility] 3 05:13:47 Hypothyroi dism 78080572 Active Not Available [facility] 3 05:13:47 Pain of hip region 91542254 Active Not Available [facility] 3 05:13:47 Wheezing 19143706 Active 2018 Not Available [facility] 3 05:13:47 Osteoporos is 33449653 Active Not Available [facility] 3 05:13:47 Otitis media 61462088 Active 2021 Not Available [facility] 3 05:13:47 Fatigue 13834226 Active Not Available [facility] 3 05:13:47 Facial paresthesi a 99119643 Active Not Available [facility] 3 05:13:47 Asthma 399115308 Active 2022 JESSICA Allen [address], [address], [place], [address] , [employer] [facility] [employer] [facility] 3 13:09:04 Hyperlipid emia 72900088 Active 2022 JESSICA Allen [address], [address], [place], [address] , [employer] [facility] 3 15:24:04 Seasonal allergic rhinitis 983510156 Active 2022 JESSICA Allen [address], [address], [place], [address] , [employer] [facility] [employer] [facility] 3 17:47:52 Acute urinary tract infection 009907351 Active 2022 JESSICA Allen [address], [address], [place], [address] , [employer] 3 16:06:55 Dystrophia unguium 14557882 Active 2024 Nico Bowling DPM [address], [address], [place], [address] , [employer] 13:57:56 Bunion 721833839 Active 2024 Nico Bowling DPM [address], [address], [place], [address] , [facility] 13:57:59 Hammer toe 068451905 Active 2024 Nico Bowling DPM [address], [address], [place], [address] , [employer] 13:58:28 Pain in toe 582169978 Active 2024 Nico Bowling DPM [address], [address], [place], [address] , [facility] 13:58:41 Problem Notes None recorded. Procedures Surgical History Date Name Laterality Status Provider Name and Address Organization Details Recorded Time 04/20/19 25 Nail Debridement completed Nico Bowling DPM [address], [address], [place], [address], [employer] 04/19/2024 13:57:27 04/09/19 20 Most Recent Bone Density completed Not Available [facility] 04/07/2022 05:05:19 Tubal Ligation completed Not Available [facility] 04/07/2022 05:05:22 Cholecystectomy completed Not Available [facility] 04/07/2022 05:05:22 Orthopedic Surgery completed Not Available [facility] 04/07/2022 05:05:22 Imaging Results None recorded. Procedure Notes None recorded. Medical Equipment None Reported. Allergies Allergen ID Allergen Name Allergen Category Reaction Reaction Severity Criticality Documentation Date Start Date Code Code System Note Provider Name and Address Organization Details Recorded Time 65791 Cipro medicatio n Not available Not available Not available 04/19/2024 75586 3 RxNorm Melinda vicente [facility] 5 12:21:41 40917 Levaquin medicatio n Not available Not available Not available 04/19/2024 17085 2 RxNorm Melinda vicente, [facility] 5 12:21:56 9545 sulfameth izole Not available Not available Not available Not available 04/07/2022 14708 RxNorm Not Available [facility] 3 05:21:25 9546 sulfadime thoxine Not available Not available Not available Not available 04/07/2022 72068 RxNorm Not Available [facility] 3 05:21:25 9547 Substance with sulfonami de structure and antibacte rial mechanism of action (substanc e) medicatio n itching moderate Not available 04/07/2022 20575 8003 SNOMED Not Available [facility] 3 05:21:25 9548 Product containin g penicilli n (product) medicatio n fever moderate Not available 04/07/2022 74273 8001 SNOMED Not Available [facility] 3 05:21:25 9549 codeine medicatio n Not available Not available Not available 04/07/2022 2670 RxNorm Not Available [facility] 3 05:21:25 9550 Bactrim medicatio n itching mild Not available 04/07/2022 49129 9 RxNorm Not Available [facility] 3 05:21:25 Medications Name Sig Start Date [...] completed Not Available Not Available Not Available Gio Steele [facility] with Large Mask 05/25 completed Not Available [...] % 99 /min 16 /min 97.6 [degF] 29182.3 g 110 mm[Hg] 70 mm[Hg] Not Available [facility] 3 05:11:19 Date Recorded Body height Body mass index (BMI) Body weight Heart rate Respiratory rate Oxygen saturation Oxygen saturation in Arterial blood by Pulse oximetry Systolic blood pressure Diastolic blood pressure Provider Name and Address Organization Details Last Updated DateTime 5 170.18 cm 31 kg/m2 68298.2 9 g 107 /min 14 /min 98 % 98 % 99 mm[Hg] 70 mm[Hg] Melinda Marin [employer] 5 11:17:43 Date Recorded Body height Body temperature Body mass index (BMI) Body weight Respiratory rate Oxygen saturation Oxygen saturation in Arterial blood by Pulse oximetry Heart rate Systolic blood pressure Diastolic blood pressure Provider Name and Address Organization Details Last Updated DateTime 3 170.18 cm 97.6 [degF] 31 kg/m2 79068.2 9 g 16 /min 98 % 98 % 104 /min 128 mm[Hg] 80 mm[Hg] EDWARD Valles [employer] [facility] 3 14:42:15 Date Recorded Body mass index (BMI) Body height Oxygen saturation Oxygen saturation in Arterial blood by Pulse oximetry Heart rate Body temperature Body weight Systolic blood pressure Diastolic blood pressure Provider Name and Address Organization Details Last Updated DateTime 1 27.7 kg/m2 170.18 cm 96 % 96 % 96 /min 98 [degF] 34880.8 5 g 110 mm[Hg] 60 mm[Hg] Not Available [facility] 3 05:11:19 Date Recorded Body mass index (BMI) Body height Oxygen saturation Oxygen saturation in Arterial blood by Pulse oximetry Heart rate Body temperature Body weight Systolic blood pressure Diastolic blood pressure Provider Name and Address Organization Details Last Updated DateTime 1 27.8 kg/m2 170.18 cm 96 % 96 % 112 /min 96.2 [degF] 24136 g 120 mm[Hg] 80 mm[Hg] Not Available [facility] 3 05:11:19 Social History Question Answer Notes LastModified by Organizat ion Details LastModified Time Tobacco Smoking Status Never Smoker Not Available [facility] 04/07/2022 05:04:25 What Is Your Level Of Caffeine Consumption? Occasional [id number] Information not available 04/07/2022 How Much Tobacco Do You Chew? None MIGRATION.[id number] Information not available 04/07/2022 In The 14 Days Before Symptom Onset, Have You Had Close Contact With A Laboratory-confirm ed COVID-19 While That Case Was Ill? No [id number].[id number] Information not available 04/07/2022 In The 14 Days Before Symptom Onset, Have You Had Close Contact With A Person Who Is Under Investigation For COVID-19 While That Person Was Ill? No MIGRATION.[id number] 2572 Information not available 04/07/2022 What Type Of Diet Are You Following? REGULAR MIGRATION.[id number] 0343 Information not available 04/07/2022 Which Illicit Or Recreational Drugs Have You Used? None MIGRATION.[id number] 2359 Information not available 04/07/2022 Have There Been Any Changes To Your Family Or Social Situation? No MIGRATION.180535 8844 Information not available 04/07/2022 Do You Use Insect Repellent Routinely? No MIGRATION.216475 3992 Information not available 04/07/2022 What Was The Date Of Your Most Recent Tobacco Screening? 04/19/2024 Information not available 04/19/2024 What Is Your Relationship Status? Single [id number].[id number] 0288 Information not available 04/07/2022 Do You Use Your Seat Belt Or Car Seat Routinely? Yes MIGRATION.[id number] 3237 Information not available 04/07/2022 Do You Have Smoke And Carbon Monoxide Detectors In Your Home? Yes MIGRATION.906594 4965 Information not available 04/07/2022 How Much Tobacco Do You Smoke? No MIGRATION.728262 8199 Information not available 04/07/2022 Do You Use Sunscreen Routinely? Yes MIGRATION.284422 2402 Information not available 04/07/2022 Has Tobacco Cessation Counseling Been Provided? No Information not available 04/19/2024 Have You Recently Traveled Abroad? No MIGRATION.083905 0596 Information not available 04/07/2022 Do You Have Difficulty Walking Or Climbing Stairs? No MIGRATION.818753 4682 Information not available 04/07/2022 Do You Have Any Dietary Restrictions? No MIGRATION.080822 8694 Information not available 04/07/2022 Sex: Unknown Functional Status Question Answer Note LastModified by Organizat ion Details LastModified Time Do you use any illicit or recreational drugs? No MIGRATION.[id number] 6626 Information not available 04/07/2022 Do you or have you ever used any other forms of tobacco or nicotine? No MIGRATION.100830 8331 Information not available 04/07/2022 What is your level of alcohol consumption? None MIGRATION.774885 5567 Information not available 04/07/2022 Do you or have you ever used smokeless tobacco? Never used smokeless tobacco MIGRATION.003521 8469 Information not available 04/07/2022 Are you currently employed? No [email or web address] Information not available 05/24/2022 Do you have transportation difficulties? Yes MIGRATION.823169 5911 Information not available 04/07/2022 Are you able to walk? YESWOREST MIGRATION.369409 0230 Information not available 04/07/2022 Are you able to care for yourself? No [email or web address] Information n ot available 05/24/2022 What is your occupation? unemployed MIGRATION.701880 8547 Information not available 04/07/2022 Do you have difficulty dressing or bathing? No MIGRATION.197172 4777 Information not available 04/07/2022 Do you or have you ever used e-cigarettes or vape? Never used electronic cigarettes MIGRATION.671410 5208 Information not available 04/07/2022 What is your exercise level? None MIGRATION.239259 0216 Information not available 04/07/2022 Mental Status Question Answer Note LastModified by Organization D etails LastModified Time Do you have difficulty concentrating, remembering or making decisions? Yes [email or web address] Information no t available 05/24/2022 Family History Relationship Description Onset Age of this Age Resolved Age Notes LastModified by Organization Details LastModified Time Mother Motor vehicle traffic accident [id number] Not available 04/07/2022 05:05:28 Medical History Condition [...] influenza, unspecified formulation 5 completed Not Available [facility] 04/07/2022 05:21:16 Past Encounters Encounter ID Performer Location Encounter Start Date Encounter Closed Date Diagnosis/Indication Diagnosis SNOMED-CT Code Diagnosis ICD10 Code Diagnosis Note [id number] JESSICA Allen [facility] [place] [address] [place] [address] 07/14/2020 00:00:00 08/02/2020 23:47:21 [id number] JESSICA Allen [facility] [place] [address] [place] [address] 07/29/2020 00:00:00 08/05/2020 01:23:05 [id number] JESSICA Allen [facility] [place] [address] [place] [address] 08/27/2020 00:00:00 09/06/2020 08:48:14 [id number] JESSICA Allen [facility] [place] [address] [place] [address] 04/01/2021 00:00:00 04/04/2021 19:53:54 [id number] JESSICA Allen [facility] [place] [address] [place] [address] 05/25/2022 14:05:06 05/25/2022 15:31:44 Hypothyroidism 50694714 E03.9 stable on supplement . due for labs. Major depr essive disorder 798087220 F32.9 stable on celexa therapy Blood gluc ose outside reference range 750290888 R73.09 due for a1c screening. Asthma 247764183 J45.90 9 stable. 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 Screening for malignant neoplasm of colon 888383033 Z12.11 pt would like cologuard testing option. [id number] Nico Bowling DPM [facility] [place] [address] [place] [address] 04/19/2024 11:08:22 04/24/2024 09:48:47 Pain in toe 222564044 M79.674 M79.675 secondary to deformitie sRecommend wide supportive shoe gearRecomm end offloading silicone toe sleevesRec ommend monitoring for wounds daily if present seek medical attention immediatel yFollow-up in 3 months for routine foot care Dystrophia unguium 90530 009 L60.3 nails debrided without incident Bunion 261971260 M21.61 9 bilateral worse to the righteduca karena on treatment optionsdoe s not want surgerysho wn conservati ve optionsfol low-up as needed Hammer toe 495995471 M20 .41 M20.42 as above Health Concerns Section Related Observation LastModified by Organization Detai ls LastModified Time None Recorded Concern Status LastModified by Organization Details LastModified Time None Recorded Advance Directives Directive None Recorded Payers Encounter Date Sequence Insurance Name Policy Number Policy Oliveira Covered Member ID Oliveira Member ID Guarantor Name 05/25/2022 1 [place] Dakotah Beauchamp Jernigan [id number] Dakotah Beauchamp Jernigan 05/25/2022 2 [place] WHEN MEDICARE OR MEDICARE REPLACEMENT PRIMARY) Dakotah Beauchamp Jernigan [id number] Dakotah L Jernigan 04/19/2024 1 [place] Dakotah Beauchamp Jernigan [id number] Dakotah L Jernigan 04/19/2024 2 [place] WHEN [place]ARE OR MEDICARE REPLACEMENT PRIMARY) Dakotah Beauchamp Jernigan [id number] Dakotah Beauchamp Jernigan Notes Date Note Type Note Provider [...] palpitations Treatment:taking medication as directed Not Available [facility] [employer] [facility] 08/05/2020 01:23:05 021 text/ht ml Allergy/sinusitisReported bypatient.Onset/Timing:new [...] fine no more leg swelling Not Available [email or web address] [facility] 09/06/2020 08:48:14 022 text/ht ml EaracheReported bypatient.Location:right [...] medication and due for labs. Not Available [employer] 04/04/2021 19:53:54 023 text/ht ml Anxiety/DepressionReported bypatient.Quality:doesnt [...] changes; no hair changes JESSICA Allen [address] [facility] [address] [place] [address] [address], [place], [address], [employer] 06/04/2022 13:50:05 025 text/ ml Patient presents [...] MPJ bunion deformity. Nico Bowling DPM [address] [facility] [address], [place] [address] [address], [place], [address], [employer] 04/19/2024 13:59:42 OBGyn Episode No OBEpisode recorded.
--- OUTSIDE RECORDS SUMMARY | 2024-07-07 21:34 | XMS_ITS | Clinical Summary ---
Author Organization [facility] Care Team Providers Care Quality Assurance Director Name Role Phone Unavailable Primary Care Provider [...]
--- OUTSIDE RECORDS SUMMARY | 2024-07-07 21:34 | XMS_ITS | Referral Summary ---
Author Organization [facility] [place] [address] Address [address] [place] [address] Care Team Providers Care Eyeglass Fitter Name Role Phone Elena Payton Primary Care Pr ovider Encounters Date Type Department Care Team Description 07/03/2024 12:40 PM CDT Ancillary Procedure [facility] at [address] [address] Sore throat 07/03/2024 12:35 PM CDT Ancillary Procedure [facility] at [address] [address] Sore throat 07/03/2024 11:45 AM CDT Office Visit [facility] at [address] [address] Aretha Okeefe PA Acute cough (Primary Dx); Acute pain of right shoulder from Last 3 Months Allergies Active Allergy Reactions Criticality Noted Date Comments Ciprofloxacin Nausea & Vomiting Low 07/03/2024 Codeine Itching,Unknown Low 12/28/2016 Penicillins Fever,Shortness of breath,Unknown High 12/28/2016 Sulfa (Sulfonamide Antibiotics) Itching,Nausea And Vomiting,Unknown Medium 12/28/2016 Sulfamethoxazole-Trimethoprim Itching,Na usea And Vomiting,Unknown Low 12/28/2016 Unclassified Drug Unknown 12/28/2016 Medications inhalat.spacing dev,large mask ([employer] Ivette Lg Mask) spacer [employer] Iv[employer] [facility] with Large Mask Active albuterol [...] days. 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 Gender Identity Not on file Sexual Orientation [...] 07/03/2024 12:07 PM CDT Plan of Treatment Not on file Procedures [...] signed by Jimbo RICKS T: Report ID: [id number] Reading Location: [id number] Procedure Note Jimbo Lemus MD - 07/03/2024 [...] signed by Jimbo RICKS T: Report ID: [id number] Reading Location: [id number] Aretha Savita Tiller PA IMG XR PROCEDURES Final Result * XR [...] signed by Jimbo RICKS T: Report ID: [id number] Reading Location: [id number] Procedure Note Jimbo Lemus MD - 07/03/2024 [...] signed by Jimbo RICKS T: Report ID: [id number] Reading Location: [id number] Aretha LOPEZ IMG XR PROCEDURES Final Result * POCT rapid strep A (07/03/2024 12:25 PM CDT) Rapid Strep A, POC Negative Negative Swab 07/03/2024 12:2 5 PM CDT Aretha LOPEZ POINT OF CARE TEST ORDER [...] signed by: Edy Olsen M.D., md/:06/22/2016 11:03:24 Implant Coordinator: Jaz CABRAL(Francisco)(Rey), [facility] letter sent: Normal Exam Reading location: [...] mammogram, 04/18/2013 mammogram, and 03/24/2012 mammogram - [facility]. BREAST TISSUE: The tissue of [...] mammogram, 04/18/2013 mammogram, and 03/24/2012 mammogram - [facility]. BREAST TISSUE: The tissue of both [...] signed by: Edy Olsen M.D., md/:06/22/2016 11:03:24 Implant Coordinator: Jaz BARAJAS)(M), [facility] letter sent: Normal Exam Reading location: BI-RADS: 2 Benign [EOD] us Elena LOPEZ IMG MAMMO PROCED URES Final Result from Last 3 Months or Most Recently Relevant to Health Maintenance Insurance * Guarantor: Dakotah Jernigan Account Type Relation to Patient Date of Phone Billing Address Personal/Family Self 1955 [address] [place] [address] [employer] MEDICARE * Guarantor: Dakotah Jernigan Account Type Relation to Patient Date of Phone Billing Address Personal/Family Self 1955 [address] [place] [address] MEDICARE [employer] Care Teams Eyeglass Fitter Relationship Specialty Start Date End Date Elena Payton PA PCP - General Physician Software Licensing Executive 09/11/18
--- OUTSIDE RECORDS SUMMARY | 2024-07-07 21:34 | XMS_ITS | Data Portability ---
Author Organization ISIDRA GEORGETTEMay Franco Address [address] [facility] [place] [address] Care Team Providers Care Police And Fire Dispatcher Name Role Phone ALEKSANDER VILLANUEVA Primary Care Provider Unavailab le Assessment No assessment recorded. Plan of Treatment Reminders Order Date Submit Date Provider Last Modified By Organization Details Last Modified Time Details Appointments ANY 15 2024 11:00A M JESSICA lAlen Not available Not available Not available Lab urinalysi s, complete 2023 024 [facility], [address] [place] [address], [id number], 05/01/2024 12:23:43 culture, urine 2023 024 [facility], [address] [place] [address], [id number], 05/01/2024 12:23:58 hepatic function panel, serum [address] [facility], [address] [place] [address], [id number], 04/18/2024 09:20:58 BMP, serum or plasma 2023 024 [facility], [address] [place] [address], [id number], 05/01/2024 12:23:14 CBC w/ auto diff 2023 024 [facility], [address] [place] [address], [id number], 05/01/2024 12:24:29 lipid panel, serum 2023 024 [facility], [address] [place] [address], [id number], 05/01/2024 12:24:18 TSH + free T4, serum 2023 024 [facility], [address] [place] [address], [id number], 05/01/2024 12:23:37 urinalysi s, complete [address] [facility], [address] [place] [address], [id number], 06/30/2023 11:15:22 culture, urine [address] [facility], [address] [place] [address], [address], 06/30/2023 11:15:22 hepatic function panel, serum 2023 024 [facility], [address] [place] [address], [id number], 06/15/2023 17:22:48 BMP, serum or plasma 2023 024 [facility], [address] [place] [address], [id number], 06/15/2023 17:22:12 CBC w/ auto diff 2023 024 [facility], [address] [place] [address], [id number], 06/15/2023 17:24:07 lipid panel, serum 2023 024 [facility], [address] [place] [address], [id number], 06/15/2023 17:24:36 TSH + free T4, serum 2023 024 [facility], [address] [place] [address], [id number], 06/15/2023 17:23:09 Referral None recorded. Procedures None recorded. Surgeries None recorded. Imaging barium swallow study [address] (Imaging), [address] [facility] [address], [place], [address], 06/11/2024 10:58:02 XR, chest, 2 view 2024 025 [facility] (Imaging), [address] [place] [address] [address], [place], [address], 04/27/2024 09:55:58 US, duplex, venous, lower extremity , complete 2024 025 [facility] (Imaging), [address] [place] [address] [address], [place], [address], 04/27/2024 11:56:17 US, echocardi ogram, transthor acic, complete, w/ color flow 2024 025 [facility] (Cardiology & Emg), [address] [facility] [address], [place], [address], 05/17/2024 11:39:18 DEXA [address] [place] [address] (Imaging), [facility] [facility] [address], [place], [address], 06/08/2024 14:48:30 Medication Orders Macrobid 100 mg capsule 2024 025 [facility]18, [address] [facility], [place], [place], [id number], 04/17/2024 16:19:49 Advair HFA 115 mcg-21 mcg/actua tion aerosol inhaler 2024 025 [facility] #35961, [address] [facility] [address] [facility], [place], [place], [id number], 04/17/2024 16:19:50 furosemid e 20 mg tablet 2024 025 [facility] #89315, [address], [place], [place], [id number], 06/11/2024 10:09:50 potassium chloride ER 10 mEq tablet,ex tended release 2024 025 [facility] #22851, [address], [place], [place], [id number], 04/17/2024 16:19:49 nitrofura ntoin monohydra te/macroc rystals 100 mg capsule 2023 024 [email or web address]39164, [address], [place], [place], [id number], 01/24/2024 12:10:08 Restasis 0.05 % eye drops in a dropperet te 2023 025 [facility] #00532, [address], [place], [place], [id number], 04/17/2024 16:02:08 Patient TargetsNo targets recorded. Patient Instructions Encounter Date Encounter Id Patient Instructions Last Modified By Organization Details Last Modified Time 01/24/2024 [id number] A healthy lifestyle: care instructions Not available 01/24/2024 12:11:43 04/17/2024 [id number] A healthy lifestyle: care instructions Not available [...] POC Negat juan miguel Negat juan miguel [facility] CC EDW Not Available Not Available 04/09/2024 10:56:32 03/23/19 25 03/23/2024 SARS- CoV+S ARS-C oV-2 (COVI D-19) Ag [Pres ence] in Respi rator y syste m speci men by Rapid immun oassa y influenza B Ag, POC Negati ve text: negati ve Influ dmitri B Ag, POC Negat juan miguel Negat juan miguel [facility] CC EDW Not Available Not Available 04/09/2024 [...] mptiv e Negat juan miguel, Inval id [facility] CC EDW Not Available Not Available 04/09/2024 10:56:32 03/23/19 25 03/23/2024 SARS- CoV+S ARS-C oV-2 (COVI D-19) Ag [Pres ence] in Respi rator y syste m speci men by Rapid immun oassa y interpretati on and review of laboratory results Normal Not Available Not Available 04/2024 10:56:32 07/26/19 24 07/26/2023 XR, hip + pelvi s, unila teral No observ ation record ed. [address], [place], [address], 07/27/2023 22:59:19 07/27/19 24 07/26/2023 CT, hip + pelvi s, w/o contr ast No observ ation record ed. [address], [place], [address], 07/27/2023 23:00:38 10/31/19 24 10/28/2023 MAMMO , scree barbara, digit al, bilat eral No observ ation record ed. [address] [address], [place], [address], 01/24/2024 11:55:08 02/08/19 25 02/09/2024 imagi ng inter preta tion No observ ation record ed. [address] [address], [place], [address], 02/09/2024 17:06:32 04/28/19 25 04/26/2024 XR, chest , 2 view No observ ation record ed. [address] [address], [place], [address], 04/27/2024 11:57:26 05/18/19 25 05/03/2024 US, echoc ardio gram, trans thora cic, compl ete, w/ color flow No observ ation record ed. [facility] (Cardiology & Emg) [address] [place] [address], [place], [address], 05/17/2024 11:39:19 06/10/19 25 06/09/2024 XR, hip, bilat eral No observ ation record ed. [address] [address], [place], [address], 06/11/2024 10:12:10 Result Notes None recorded. Problems Name Problem SNOMED Code Status Onset Date Resolution Date Notes Provider Name and Address Organization Details Recorded Time Fracture of pelvis 07001470 Active 2023 JESSICA Allen Attn: Adriel schaefer,[address] [facility], [place], [address], [facility] 4 11:59:01 Long-term drug therapy Active 2023 JESSICA Allen Attn: Adriel schaefer,[address] [facility], [place], [address], [place] [facility] 4 11:59:02 Hyperlipide kelsey 87288887 Active 2023 JESSICA Allen Attn: Accountin g,[address] [place], [address], [place] [facility] 4 11:59:04 Mood disorder 25695100 Active 2023 JESSICA Allen Attn: Accountin g,[address] [place], [address], [place] [facility] 4 11:59:05 Lower urinary tract symptoms 823223632 Active 2023 JESSICA Allen Attn: Accountin g,[address] [place], [address], [place] [facility] 4 11:59:07 Asthma 613844113 Active 2023 JESSICA Allen Attn: Accountin g,[address] [place], [address], [place] [facility] 4 11:59:10 Hypothyroid ism 13049242 Active 2023 JESSICA Allen Attn: Accountin g,[address] [place], [address], [place] [facility] 4 11:59:12 Body mass index 25-29 - overweight 290049518 Active 2023 JESSICA Allen Attn: Accountin g,[address] [place], [address], [place] [facility] 4 11:59:32 Overweight 794450710 Active 2023 JESSICA Allen Attn: Accountin g,[address] [place], [address], [place] [facility] 4 11:59:33 Body mass index 30+ - obesity 487402809 Active 2024 JESSICA Allen Attn: Accountin g,[address] [place], [address], [place] [facility] 5 16:14:35 Pain of hip region 37662555 Active 2024 JESSICA Allen Attn: Adriel schaefer,[address] [facility], [place], [address], [place] - [facility] 5 17:38:11 Abnormal gait 58089708 Active 2024 JESSICA Allen Attn: Adriel g,[address] [facility], [place], [address], [place] [facility] 17:38:13 Obese class I 8404584061632 07 Active 2024 JESSICA Allen Attn: Adriel schaefer,[address] [facility], [place], [address], [place] - [facility] 17:38:37 Problem Notes None recorded. Procedures Surgical History Date Name Laterality Status Provider Name and Address Organization Details Recorded Time Joint Replacement completed Brian Rudolph MA [place] - [facility] 05/17/2023 13:17:42 ligation of bilateral fallopian tubes completed ARMANDO Reese - [facility] 05/17/2023 13:18:14 Imaging Results None recorded. Procedure Notes None recorded. Medical Equipment None Reported. Allergies Allergen ID Allergen Name Allergen Category Reaction Reaction Severity Criticality Documentation Date Start Date Code Code System Note Provider Name and Address Organization Details Recorded Time 613613 Product containin g penicilli n (product) medicatio n Not available Not available Not available 05/17/2023 44491 8001 SNOMED ARMANDO Reese, [place] - [facility] 4 11:29:59 074693 Bactrim medicatio n Not available Not available Not available 05/17/2023 86044 9 RxNorm ARMANDO Reese, [place] - [facility] 4 11:30:07 494989 Cipro medicatio n Not available Not available Not available 07/05/2023 51580 3 RxNorm Elin Baron LPN null, [place] - [facility] 4 10:58:16 Medications Name Sig Start Date [...] day by oral route for 7 days. 06/11 completed Not Available Not Available Not Available albuterol sulfate HFA 90 mcg/actua tion aerosol inhaler Two puffs inhaled every 4-6 hours as needed 2024 active Not Available Not Available Not Avai lable cyclospor ine 0.05 % eye drops in a dropperet te INSTILL 1 DROP INTO AFFECTED EYE(S) BY OPHTHALM IC ROUTE EVERY 12 HOURS 03/11 /2025 completed Not Available Not Available Not Available Advair HFA 115 mcg-21 mcg/actua tion aerosol inhaler Inhale 2 inhalati ons twice a day by inhalati on route. 2024 active Not Available Not Available Not Avai lable quetiapin e 50 mg tablet taken at [facility] active Not Available Not Available No t [...] Not Available Not Available Vitals Date Recorded Respiratory rate Systolic blood pressure Diastolic blood pressure Provider Name and Address Organization Details Last Updated DateTime 04/17/2024 16 /min 110 mm[Hg] 80 mm[Hg] JESSICA Allen Attn: Accounting, [address] [place], [address], [facility] 04/17/2024 16:15:27 Date Recorded Body height Body mass index (BMI) Body weight Heart rate Oxygen saturation Oxygen saturation in Arterial blood by Pulse oximetry Body temperature Systolic blood pressure Diastolic blood pressure Provider Name and Address Organization Details Last Updated DateTime 5 168.28 cm 31.3 kg/m2 57756.8 7 g 100 /min 99 % 99 % 98.5 [degF] 122 mm[Hg] 80 mm[Hg] Frances Dominguez MA [facility] 5 15:47:56 Date Recorded Body height Respiratory rate Body mass index (BMI) Body weight Oxygen saturation Oxygen saturation in Arterial blood by Pulse oximetry Heart rate Systolic blood pressure Diastolic blood pressure Provider Name and Address Organization Details Last Updated DateTime 4 168.28 cm 18 /min 28.8 kg/m2 85443.6 3 g 97 % 97 % 60 /min 126 mm[Hg] 82 mm[Hg] Brian Rudolph MA [facility] 4 11:34:44 Date Recorded Body height Body mass index (BMI) Body weight Oxygen saturation Oxygen saturation in Arterial blood by Pulse oximetry Heart rate Systolic blood pressure Diastolic blood pressure Provider Name and Address Organization Details Last Updated DateTime 5 168.28 cm 30 kg/m2 41467.7 7 g 97 % 97 % 72 /min 112 mm[Hg] 82 mm[Hg] Brian Rudolph MA [facility] 5 10:11:16 Date Recorded Systolic blood pressure Diastolic blood pressure Provider Name and Address Organization Details Last Updated DateTime 01/24/2024 120 mm[Hg] 80 mm[Hg] JESSICA Allen Attn: Accounting,[address] [facility], [place], [address], [facility] 01/24/2024 12:09:23 Date Recorded Body height Oxygen saturation Oxygen saturation in Arterial blood by Pulse oximetry Heart rate Body mass index (BMI) Body weight Respiratory rate Systolic blood pressure Diastolic blood pressure Provider Name and Address Organization Details Last Updated DateTime 4 168.28 cm 97 % 97 % 76 /min 29.2 kg/m2 26869.8 1 g 18 /min 128 mm[Hg] 80 mm[Hg] Brian Rudolph MA [facility] 4 11:52:04 Social History Question Answer Notes LastModified by Organizat ion Details LastModified Time Tobacco Smoking Status Never Smoker Brian Rudolph MA null, [facility] 01/24/2024 11:49:21 Do You Have An Advance Directive? Yes Information not available 01/24/2024 Are You Blind [...] Date Of Your Most Recent Tobacco Screening? 06/11/2024 Information not available 06/11/2024 What Is Your Relationship Status? Single Information not available 04/17/2024 Do You Use Your Seat Belt Or Car Seat Routinely? Yes Information not available 05/17/2023 Do You Have Smoke And Carbon Monoxide Detectors In Your Home? Yes Information not available 05/17/2023 Do You Use Sunscreen Routinely? Yes Information not available 05/17/2023 Has Tobacco Cessation Counseling Been Provided? No Information not available 01/24/2024 Sex: Female Functional Status Question Answer Note LastModified by Organizat ion Details LastModified Time Do you use any illicit or recreational drugs? No Information not available 01/24/2024 Do you or have you ever used any other forms of tobacco or nicotine? No Information not available 01/24/2024 What is your level of alcohol consumption? None Information not available 01/24/2024 Are you currently employed? No Information not available 04/17/2024 Are you able to care for yourself? Yes Information not available 01/24/2024 What is your exercise level? [...] Skin Problems N Anemia Y Heart Attack ([place]) N Anxiety Disorder Y Diabetes N Muscle, [...] PF, 30 mcg/0.3 mL dose 03/16/2020 completed ARMANDO [place], [place] [facility] 01/24/2024 [...] [facility] 01/24/2024 11:49:45 pneumococcal, unspecified formulation 05/10/2011 ARMANDO Lpoez, [place] [facility] 01/24/2024 11:49:45 Influenza, split virus, quadrivalent, PF 11/21/2020 ARMANDO Lopez, [place] [facility] 01/24/2024 11:49:45 Past Encounters Encounter ID Performer Location Encounter Start Date Encounter Closed Date Diagnosis/Indication Diagnosis SNOMED-CT Code Diagnosis ICD10 Code Diagnosis Note [id number] Ace Acevedo MD [facility] [address] [place] [address] 05/17/2023 11:19:47 05/17/2023 12:49:10 Hypothyroidism 55686044 E03.9 Stable on levothyrox ine 50mcg daily and due for updated TFT panel. Asthma 323692091 J45.90 9 pt is currently stable with asthma on advair hfa 115mcg /21mcg Cholesterol screening 27 5038580 Z13.220 fasting lipids due. Long-term drug therapy 694516714 Z79.899 routine bmp, LFT, and CBC due. Dry eyes 060077211 H04.1 23 Rx trial of restasis eye drops as directed. she should also see her eye doctor. Lower urin shadi tract symptoms 713545254 R39.9 pt c/o of urinary frequency and some mild dysuria. start macrobid 100mg bid course x 7 days and then check UA w/cx after. Mood disorder 69872663 F 39 exact DSM IV diagnosis is not known to this provider, but patient is on quetiapine , citalopram , and risperidon e from psychiatry . [id number] Ace Acevedo MD [facility] [address] [place] [address] 01/24/2024 11:44:31 01/24/2024 12:18:41 Hypothyroidism 39500037 E03.9 Stable on levothyrox ine 50mcg daily and due for updated TFT panel. Asthma 396797485 J45.90 9 pt is currently stable with asthma on advair hfa 115mcg /21mcg, asthma is stable at this time Lower urin shadi tract symptoms 102977624 R39.9 pt c/o of urinary frequency and frequent UTIs. We will check a routine culture with urine Mood disorder 48322292 F 39 exact DSM IV diagnosis is not known to this provider, but patient is on quetiapine , citalopram , and risperidon e from psychiatry . Long-term drug therapy 159193136 Z79.899 routine bmp, LFT, and CBC due. Fracture of pelvis 59901 009 S32.9XXA History of fracture of pelvis this year. We will send her for a DEXA scan that is due Hyperlipidemia 47581591 E78.5 Fasting lipid panel is due Body mass index 25-29 - overweight 413698465 Z68.29 bmi 29.2 Overweight 050316566 E66 .3 discussed healthy diet, exercise, controllin g carbohydra mariam and added sugars in the diet [id number] Ace Acevedo MD [facility] [address] [place] [address] 04/17/2024 15:08:03 04/17/2024 16:21:24 Body mass index 30+ - obesity 587631751 Z68.31 Chronic ob structive pulmonary disease 05847651 J44.9 Refill advair hfa as directed, check CXR update [facility]. Bilateral lower leg edema 112247386 R60.0 Start brief course of furosemide 20mg daily x 7 days, and add KCL 10meq daily x 7 days. check u/s duplex bilat complete and complete echo doppler. Urinary tr act infectious disease 33547070 N39.0 refill macrobid 100mg bid for LUTS/UTI Obesity 128712420 E66.9 [id number] Ace Acevedo MD [facility] [employer] [facility] [employer] [address] [place] [address] 06/11/2024 10:02:41 06/11/2024 10:58:02 Abnormal gait 75609931 R26.81 Refer or for new folding walker with wheels given Pain of hip region [address]442 002 M25.551 M25.552 X-ray of bilateral hip shows no acute abnormalit y there is chronic fracture deformity of her left inferior pubic ramus which is from her old pelvic fracture. It looks like both of the hip arthroplas ty replacemen ts are stable. Intermitte nt dysphagia 18951125 R13.19 Refer for barium swallow study for intermitte nt dysphagia. Obese class I 5221643485 86177 E66.811 BMI 30 Health Concerns Section Related Observation LastModified by Organization Detai ls LastModified Time None Recorded Concern Status LastModified by Organization Details LastModified Time None Recorded Advance Directives Directive Y: Payers Encounter Date Sequence Insurance Name Policy Number Policy Oliveira Covered Member ID Oliveira Member ID Guarantor Name 05/17/2023 2 [place] WHEN [place]ARE OR MEDICARE REPLACEMENT PRIMARY) Dakotah Jernigan [id number] Dakotah Jernigan 05/17/2023 1 [place] Dakotah Jernigan [id number] Dakotah Jernigan 01/24/2024 2 [place] OR MEDICARE REPLACEMENT PRIMARY) Dakotah Jernigan [id number] Dakotah Jernigan 01/24/2024 1 [place] Dakotah Jernigan [id number] Dakotah Jernigan 04/17/2024 2 [place] OR MEDICARE REPLACEMENT PRIMARY) Dakotah Jernigan [id number] Dakotah Jernigan 04/17/2024 1 [place] Dakotah Jernigan [id number] Dakotah Jernigan 06/11/2024 2 [place] OR MEDICARE REPLACEMENT PRIMARY) Dakotah Jernigan [id number] Dakotah Jernigan 06/11/2024 1 [place] Dakotah Jernigan [id number] Dakotah Jernigan Notes Date Note Type Note [...] weather related. JESSICA Allen Attn: Accounting, [address] [facility], [place], [address], [facility] 06/05/2023 15:26:41 01/24/20 24 text/htm l [...] DEXA scan JESSICA Allen Attn: Accounting, [address] [place], [address], [facility] 02/07/2024 12:21:58 04/18/19 25 text/htm l COPDReported [...] symptoms/increased frequency JESSICA Allen Attn: Accounting, [address] [facility], [place], [address], [facility] 05/07/2024 10:08:44 06/12/19 25 text/htm l Hip(s)Reported bypatient.Notes:Patient has bilateral hip pain. X-rays have already been completed prior to the appointment. And ready for review with her today. Patient also reports intermittent difficulty swallowing some of her medications. Not consistently but at times a little bit of difficulty swallowing pills. Also the patient is having a little bit of weakness and instability with her walking as reported by her sister and she wanted to get orders for a folding walker with wheels to update her old walker. JESSICA Allen Attn: Accounting, [address] [facility], [place], [address], [facility] 07/01/2024 17:38:58 OBGyn Episode No OBEpisode recorded.
--- OUTSIDE RECORDS SUMMARY | 2024-07-07 21:34 | XMS_ITS | Patient Health Record ---
Author Organization [facility] Address [address] [place] [address] Care Team Providers Care Support Services Specialist Name Role Phone Jewel Gonzales Primary Care Provider [facility] Services Unav ailable Unavailable Allergies [...] Duration) Notes Start Date End Date Status Citalopram Hydrobromide 20 MG 1 tablet Orally [...] twice a day for 30 days F41.9 06/12/2024 Active SEROquel 200 MG 1 tablet at [...] Status W/U Status Risk Notes Problem Anxiety (16327331) Anxiety (F41.9) 11/06/2021 Active confirmed Problem Bipolar 1 disorder (675838818) Bipolar 1 disorder (F31.9) 11/06/2021 Active confirmed Vital Signs Heart Rate 87 /min 06/12/2024 Respiratory Rate 16 /min 06/12/2024 Blood pressure diastolic 82 mm Hg 06/12/2024 Oximetry 98 % 06/12/2024 Height 67 in 06/12/2024 Blood pressure systolic 128 mm Hg 06/12/2024 Weight 189.6 lbs 06/12/2024 BMI 29.69 kg/m2 06/12/2024 Encounters Encounter Location Date Provider Diagnosis [address] [address] 10/04/2023 Arif Habib Nutritional counseli ng Z71.3 ; Anxiety F41.9 and Bipolar 1 disorder F31[address] [address] 12/27/2023 Arif Habib Anxiety F41.9 and Bipolar 1 disorder F31.[address] [address] 03/20/2024 Arif Habib Nutritional counseli ng Z71.3 ; Anxiety F41.9 and Bipolar 1 disorder F31.[address] [address] 06/12/2024 Arif Habib Nutritional counseli ng Z71.3 ; Anxiety F41.9 and Bipolar 1 disorder F31.[address] [address] 08/18/2023 Arif Habib Assessments Encounter Date Diagnosis (ICD Code) Assessment Notes Treatment Notes Treatment Clinical Notes Section Notes 06/12/2024 Nutritional counseling (ICD-10 - Z71.3) 03/20/2024 Nutritional counseling (ICD-10 - Z71.3) 12/27/2023 Anxiety (ICD-10 - F41.9) 10/04/2023 Nutritional counseling (ICD-10 - Z71.3) 12/27/2023 Bipolar 1 disorder (ICD-10 - F31.9) risk & benefits discussed in detail. Continue current treatment. No involuntary movements reported. 10/04/2023 Anxiety (ICD-10 - F41.9) 03/20/2024 Anxiety (ICD-10 - F41.9) 06/12/2024 Anxiety (ICD-10 - F41.9) 06/12/2024 Bipolar 1 disorder (ICD-10 - F31.9) risk & benefits discussed in detail. Continue current treatment. No involuntary movements reported. 03/20/2024 Bipolar 1 disorder (ICD-10 - F31.9) risk & benefits discussed in detail. Continue current treatment. No involuntary movements reported. 10/04/2023 Bipolar 1 disorder (ICD-10 - F31.9) risk & benefits discussed in detail. Continue current treatment Plan Of Treatment No Information Insurance Providers Payer Name Payer Address Payer Phone Subscriber Number Group Number Insured Name Patient Relationship to Insured Coverage Start Date Coverage End Date MEDICARE PART A [address] [place] [address] [id number] Sherwin Jernigani Self - patient is the insured 5 [employer] Medicare [address] [place] [address] [id number] Dakotah Jernigan Self - patient is the insured 1 1 MEDICAID [address] [facility] [address] [id number] Sherwin Jernigani Self - patient is the insured 0 [facility] Medicare Assure [address] [address] [place] [address] [id number] Dakotah Jernigan Self - patient is the [...]
--- NOTE | 2024-07-07 21:57 | ED.SOB ---
HPI - SOB/Dyspnea General Chief Complaint: Shortness of Breath/Dyspnea Stated Complaint: SOB/COUGH Time Seen by Provider: 07/07/24 21:19 History of Present Illness HPI Narrative: 69-year-old female with history of COPD, asthma, hypothyroidism, bipolar disorder presents to the ED for shortness of breath for the past 2 days. Patient reports associated productive cough of white phlegm, wheezing and central substernal chest pain that improves when she drinks water. Denies pleuritic symptoms, hemoptysis, history of VTE. She is endorsing bilateral lower extremity edema that started about a week ago but has been propping her legs up on pillows which has helped. She denies history of CHF but states she has had a 10 lb weight gain in the past week. States shortness of breath is worse with exertion. She has been using albuterol inhalers at home with some improvement. She does not smoke. Related Data Home Medications ?Medication ?Instructions ?Recorded ?Confirmed ?Last Taken ?Type levothyroxine 50 mcg tablet 50 mcg PO DAILY 09/22/20 02/09/24 02/08/24 History benztropine 0.5 mg tablet 0.5 mg PO DIRECTED 11/20/20 02/09/24 02/08/24 History citalopram 20 mg tablet (Celexa) 20 mg PO DAILY 11/20/20 02/09/24 02/08/24 History quetiapine 50 mg tablet 50 mg PO QACLUNCH 11/20/20 02/09/24 02/08/24 History albuterol sulfate 90 mcg/actuation 2 puff inhalation Q4-6H PRN 04/12/21 02/09/24 02/08/24 History aerosol inhaler Wheezing clonazepam 1 mg tablet 1 mg PO DAILY 02/09/24 02/09/24 02/08/24 History Allergies Allergy/AdvReac Type Severity Reaction Status Date / Time sulfamethoxazole Allergy Mild ITCHING/KATE Verified 02/09/24 08:45 H levofloxacin (From Levaquin) Allergy Unknown Unknown Verified 02/09/24 09:41 Penicillins Allergy Unknown Itching Verified 02/13/24 09:10 trimethoprim Allergy Unknown Itching Verified 02/09/24 08:45 Review of Systems Review of Systems: All systems reviewed & are unremarkable except as noted in HPI and below PMFSH Past Medical History Medical History History of deep venous thrombosis (DVT) of distal vein of right lower extremity Irritable bowel syndrome Chronic obstructive pulmonary disease Bipolar 1 disorder Anxiety Depression Hypothyroid Ankle fracture, left Osteoporosis Kidney stones Endometriosis Pneumonia Asthma Surgical History Surgical History History of cholecystectomy History of tubal ligation History of bilateral hip replacements Family History Family History Sibling Patient's sister is in good health Father Acute myocardial infarction Hypertension Mother Family history of diabetes mellitus in first degree relative Other Family history of blood dyscrasia Social History Social History Social History: Surrogate decision maker: patricio Issa. Code status: Full code. Years smoked: 17 Smoking status: Former smoker Tobacco type: cigarettes Second hand tobacco smoke exposure: No Smoking end date: 02/07/90 Additional smoking assessment comments: Quit at the age of 34. Boyfriend is a heavy smoker. Alcohol intake: former Drinks per week: 1 Substance use: never Substance use type: does not use Do You Feel Safe in your Home?: Yes Lack of Transportation: No Lack of Food: Never True Current Housing: Decline to Answer Concerned About Future Housing: Decline to Answer Difficulty Paying Gas/Electric Bills: Decline to Answer Difficulty Paying for Meds: Decline to Answer Currently Unemployed: Decline to Answer Education: Decline to Answer Difficulty w/ Childcare or Family Care: Decline to Answer Living arrangements: alone Additional living arrangements comments: The patient lives in her own apartment but stays with her boyfriend several days a week. Occupation/Education: other Additional occupation/education comments: Disabled. Gender identity (if verbalized by the patient): Female Spiritual care concerns: No Exam Narrative: GENERAL: Well-appearing, well-nourished, and in no acute distress. HEAD: Normocephalic, atraumatic. EYES: EOMI. ENT: Nares clear, no rhinorrhea or epistaxis. Mucous membranes moist. NECK: Supple. CHEST: Minimally decreased breath sounds throughout all lung martins with no wheezing, rales or rhonchi. Satting 98% on room air and speaking in full sentences in no distress HEART: Regular rate and rhythm. No murmur heard. Normal peripheral pulses. ABDOMEN: Soft, nontender, nondistended, normal active bowel sounds. EXTREMITIES: Normal range of motion. Trace pitting edema bilateral lower extremities. Negative Homans bilaterally SKIN: Warm, dry, no rash. NEURO: No focal deficits. Alert and oriented x3 Course Vital Signs Vital signs: Vital Signs Temperature 98.4 F 07/07/24 21:16 Pulse Rate 76 07/07/24 21:16 Respiratory Rate 21 H 07/07/24 21:16 Blood Pressure 147/69 H 07/07/24 21:16 Pulse Oximetry 98 07/07/24 21:16 Oxygen Delivery Room Air 07/07/24 21:16 Temperature 98.4 F 07/07/24 21:28 Pulse Rate 80 07/07/24 21:28 Respiratory Rate 23 H 07/07/24 21:28 Blood Pressure 146/63 H 07/07/24 21:28 Pulse Oximetry 96 07/07/24 21:28 Oxygen Delivery Room Air 07/07/24 21:28 MDM - SOB/Dyspnea MDM Narrative Medical decision making narrative: 69-year-old female with history of COPD and asthma presents to the emergency department for shortness of breath and productive cough for the past 2 days. See HPI for further history. Vitals with mild tachypnea of 21. Patient is satting 98% on room air in no respiratory distress and speaking in full sentences. Exam is notable for the above. Lab work without leukocytosis. Chemistries are largely unremarkable. ProBNP normal when age adjusted. Recent echocardiogram from April of 2024 shows a normal EF and no valvular abnormalities. Viral swabs are negative. EKG shows sinus rhythm with rate of 69 ppm, normal NC interval, normal QRS duration, normal QTC, no ischemic changes. Troponin undetectable. D-dimer mildly elevated at 0.83, however PE excluded with years criteria. Chest x-ray shows atelectasis versus pneumonia. Patient updated on results. She received DuoNeb, Solu-Medrol and p.o. doxycycline for COPD exacerbation with improvement. Reports resolution of chest pain. She remains satting 96% and above in no distress and speaking in full sentences. Suspect COPD exacerbation. Feel patient is safe to be discharged home. Will send a script for prednisone and doxycycline. She states she does not need a refill on her albuterol inhaler, encouraged her to continue using it as directed. Advised follow-up with PCP discussed strict ED return precautions. She is agreeable with the plan verbalized understanding. Discharged in stable condition. Lab Data 07/07/24 22:15 07/07/24 22:15 Labs: Lab Results 07/07/24 07/07/24 07/07/24 Range/Units 22:15 22:15 22:15 WBC 8.5 (4.5-10.0) K/mm3 RBC 3.76 L (4.2-5.4) M/mm3 Hgb 13.0 (12.0-15.0) g/dL Hct 40.4 (37.0-47.0) % MCV 107.4 H (80-100) fl MCH 34.6 H (26-34) pg MCHC 32.2 (32-36) g/dl RDW 12.3 (11.5-14.5) % Plt Count 196 (150-375) k/mm3 MPV 8.5 (7.4-10.4) fl Immature Gran % (Auto) 0.2 (0-0.5) % Neut % (Auto) 35.2 L (45.5-73.1) % Lymph % (Auto) 52.2 H (18.3-44.2) % [place] % (Auto) 5.5 (2.6-8.5) % Eos % (Auto) 6.7 H (0-4.4) % Baso % (Auto) 0.2 (0.2-1.2) % Lymph # (Auto) 4.43 H (0.9-3.2) K/mm3 [place] # (Auto) 0.5 (0.1-0.6) K/mm3 Eos # (Auto) 0.6 H (0-0.3) K/mm3 Baso # (Auto) 0.0 (0.0-0.1) K/mm3 Abs Immat Gran (auto) 0.02 (0.00-0.031) K/mm3 Absolute Neuts (auto) 3.0 (1.3-6.7) K/mm3 Absolute Nucleated RBC 0.000 (0.0-0.012) K/mm3 Band Neutrophils % Not Reportable Nucleated RBC % 0.0 (0.0-0.2) % Platelet Estimate Adequate (Adequate) Macrocytosis 1+ (NORMAL) Schistocytes None seen PT 12.4 (11.1-14.7) Seconds INR 0.9 APTT 21.6 L (22.3-36.8) Seconds D-Dimer 0.83 H Cancelled (<0.48) ug/mL Sodium Cancelled 139 Potassium Cancelled Chloride Carbon Dioxide Anion Gap BUN Creatinine Estim Creat Clear Calc Estimated GFR Glucose Calcium Total Bilirubin AST ALT Alkaline Phosphatase Troponin I (0.000-0.034) ng/mL NT-Pro-B Natriuret Pep (19.9-100) pg/mL Total Protein Albumin Lipase (23-300) U/L Influenza A (RT-PCR) (Negative) Influenza B (RT-PCR) (Negative) RSV (RT-PCR) (Negative) SARS-CoV-2 RNA (RT-PCR) (Negative) 07/07/24 07/07/24 07/07/24 Range/Units 22:15 22:15 22:15 WBC (4.5-10.0) K/mm3 RBC (4.2-5.4) M/mm3 Hgb (12.0-15.0) g/dL Hct (37.0-47.0) % MCV (80-100) fl MCH (26-34) pg MCHC (32-36) g/dl RDW (11.5-14.5) % Plt Count (150-375) k/mm3 MPV (7.4-10.4) fl Immature Gran % (Auto) (0-0.5) % Neut % (Auto) (45.5-73.1) % Lymph % (Auto) (18.3-44.2) % [place] % (Auto) (2.6-8.5) % Eos % (Auto) (0-4.4) % Baso % (Auto) (0.2-1.2) % Lymph # (Auto) (0.9-3.2) K/mm3 [place] # (Auto) (0.1-0.6) K/mm3 Eos # (Auto) (0-0.3) K/mm3 Baso # (Auto) (0.0-0.1) K/mm3 Abs Immat Gran (auto) (0.00-0.031) K/mm3 Absolute Neuts (auto) (1.3-6.7) K/mm3 Absolute Nucleated RBC (0.0-0.012) K/mm3 Band Neutrophils % Nucleated RBC % (0.0-0.2) % Platelet Estimate (Adequate) Macrocytosis (NORMAL) Schistocytes PT (11.1-14.7) Seconds INR APTT (22.3-36.8) Seconds D-Dimer (<0.48) ug/mL Sodium Potassium 4.2 Chloride Cancelled 106 Carbon Dioxide Cancelled 29 Anion Gap Cancelled BUN Creatinine Estim Creat Clear Calc Estimated GFR Glucose Calcium Total Bilirubin AST ALT Alkaline Phosphatase Troponin I (0.000-0.034) ng/mL NT-Pro-B Natriuret Pep (19.9-100) pg/mL Total Protein Albumin Lipase (23-300) U/L Influenza A (RT-PCR) (Negative) Influenza B (RT-PCR) (Negative) RSV (RT-PCR) (Negative) SARS-CoV-2 RNA (RT-PCR) (Negative) 07/07/24 07/07/24 07/07/24 Range/Units 22:15 22:15 22:15 WBC (4.5-10.0) K/mm3 RBC (4.2-5.4) M/mm3 Hgb (12.0-15.0) g/dL Hct (37.0-47.0) % MCV (80-100) fl MCH (26-34) pg MCHC (32-36) g/dl RDW (11.5-14.5) % Plt Count (150-375) k/mm3 MPV (7.4-10.4) fl Immature Gran % (Auto) (0-0.5) % Neut % (Auto) (45.5-73.1) % Lymph % (Auto) (18.3-44.2) % [place] % (Auto) (2.6-8.5) % Eos % (Auto) (0-4.4) % Baso % (Auto) (0.2-1.2) % Lymph # (Auto) (0.9-3.2) K/mm3 [place] # (Auto) (0.1-0.6) K/mm3 Eos # (Auto) (0-0.3) K/mm3 Baso # (Auto) (0.0-0.1) K/mm3 Abs Immat Gran (auto) (0.00-0.031) K/mm3 Absolute Neuts (auto) (1.3-6.7) K/mm3 Absolute Nucleated RBC (0.0-0.012) K/mm3 Band Neutrophils % Nucleated RBC % (0.0-0.2) % Platelet Estimate (Adequate) Macrocytosis (NORMAL) Schistocytes PT (11.1-14.7) Seconds INR APTT (22.3-36.8) Seconds D-Dimer (<0.48) ug/mL Sodium Potassium Chloride Carbon Dioxide Anion Gap 4 BUN Cancelled 25 H Creatinine Cancelled 0.81 Estim Creat Clear Calc Cancelled Estimated GFR Glucose Calcium Total Bilirubin AST ALT Alkaline Phosphatase Troponin I (0.000-0.034) ng/mL NT-Pro-B Natriuret Pep (19.9-100) pg/mL Total Protein Albumin Lipase (23-300) U/L Influenza A (RT-PCR) (Negative) Influenza B (RT-PCR) (Negative) RSV (RT-PCR) (Negative) SARS-CoV-2 RNA (RT-PCR) (Negative) 07/07/24 07/07/24 07/07/24 Range/Units 22:15 22:15 22:15 WBC (4.5-10.0) K/mm3 RBC (4.2-5.4) M/mm3 Hgb (12.0-15.0) g/dL Hct (37.0-47.0) % MCV (80-100) fl MCH (26-34) pg MCHC (32-36) g/dl RDW (11.5-14.5) % Plt Count (150-375) k/mm3 MPV (7.4-10.4) fl Immature Gran % (Auto) (0-0.5) % Neut % (Auto) (45.5-73.1) % Lymph % (Auto) (18.3-44.2) % [place] % (Auto) (2.6-8.5) % Eos % (Auto) (0-4.4) % Baso % (Auto) (0.2-1.2) % Lymph # (Auto) (0.9-3.2) K/mm3 [place] # (Auto) (0.1-0.6) K/mm3 Eos # (Auto) (0-0.3) K/mm3 Baso # (Auto) (0.0-0.1) K/mm3 Abs Immat Gran (auto) (0.00-0.031) K/mm3 Absolute Neuts (auto) (1.3-6.7) K/mm3 Absolute Nucleated RBC (0.0-0.012) K/mm3 Band Neutrophils % Nucleated RBC % (0.0-0.2) % Platelet Estimate (Adequate) Macrocytosis (NORMAL) Schistocytes PT (11.1-14.7) Seconds INR APTT (22.3-36.8) Seconds D-Dimer (<0.48) ug/mL Sodium Potassium Chloride Carbon Dioxide Anion Gap BUN Creatinine Estim Creat Clear Calc 65 Estimated GFR Cancelled > 60 Glucose Cancelled 96 Calcium Cancelled Total Bilirubin AST ALT Alkaline Phosphatase Troponin I (0.000-0.034) ng/mL NT-Pro-B Natriuret Pep (19.9-100) pg/mL Total Protein Albumin Lipase (23-300) U/L Influenza A (RT-PCR) (Negative) Influenza B (RT-PCR) (Negative) RSV (RT-PCR) (Negative) SARS-CoV-2 RNA (RT-PCR) (Negative) 07/07/24 07/07/24 07/07/24 Range/Units 22:15 22:15 22:15 WBC (4.5-10.0) K/mm3 RBC (4.2-5.4) M/mm3 Hgb (12.0-15.0) g/dL Hct (37.0-47.0) % MCV (80-100) fl MCH (26-34) pg MCHC (32-36) g/dl RDW (11.5-14.5) % Plt Count (150-375) k/mm3 MPV (7.4-10.4) fl Immature Gran % (Auto) (0-0.5) % Neut % (Auto) (45.5-73.1) % Lymph % (Auto) (18.3-44.2) % [place] % (Auto) (2.6-8.5) % Eos % (Auto) (0-4.4) % Baso % (Auto) (0.2-1.2) % Lymph # (Auto) (0.9-3.2) K/mm3 [place] # (Auto) (0.1-0.6) K/mm3 Eos # (Auto) (0-0.3) K/mm3 Baso # (Auto) (0.0-0.1) K/mm3 Abs Immat Gran (auto) (0.00-0.031) K/mm3 Absolute Neuts (auto) (1.3-6.7) K/mm3 Absolute Nucleated RBC (0.0-0.012) K/mm3 Band Neutrophils % Nucleated RBC % (0.0-0.2) % Platelet Estimate (Adequate) Macrocytosis (NORMAL) Schistocytes PT (11.1-14.7) Seconds INR APTT (22.3-36.8) Seconds D-Dimer (<0.48) ug/mL Sodium Potassium Chloride Carbon Dioxide Anion Gap BUN Creatinine Estim Creat Clear Calc Estimated GFR Glucose Calcium 10.6 H Total Bilirubin Cancelled 0.4 AST Cancelled 28 ALT Cancelled Alkaline Phosphatase Troponin I (0.000-0.034) ng/mL NT-Pro-B Natriuret Pep (19.9-100) pg/mL Total Protein Albumin Lipase (23-300) U/L Influenza A (RT-PCR) (Negative) Influenza B (RT-PCR) (Negative) RSV (RT-PCR) (Negative) SARS-CoV-2 RNA (RT-PCR) (Negative) 07/07/24 07/07/24 07/07/24 Range/Units 22:15 22:15 22:15 WBC (4.5-10.0) K/mm3 RBC (4.2-5.4) M/mm3 Hgb (12.0-15.0) g/dL Hct (37.0-47.0) % MCV (80-100) fl MCH (26-34) pg MCHC (32-36) g/dl RDW (11.5-14.5) % Plt Count (150-375) k/mm3 MPV (7.4-10.4) fl Immature Gran % (Auto) (0-0.5) % Neut % (Auto) (45.5-73.1) % Lymph % (Auto) (18.3-44.2) % [place] % (Auto) (2.6-8.5) % Eos % (Auto) (0-4.4) % Baso % (Auto) (0.2-1.2) % Lymph # (Auto) (0.9-3.2) K/mm3 [place] # (Auto) (0.1-0.6) K/mm3 Eos # (Auto) (0-0.3) K/mm3 Baso # (Auto) (0.0-0.1) K/mm3 Abs Immat Gran (auto) (0.00-0.031) K/mm3 Absolute Neuts (auto) (1.3-6.7) K/mm3 Absolute Nucleated RBC (0.0-0.012) K/mm3 Band Neutrophils % Nucleated RBC % (0.0-0.2) % Platelet Estimate (Adequate) Macrocytosis (NORMAL) Schistocytes PT (11.1-14.7) Seconds INR APTT (22.3-36.8) Seconds D-Dimer (<0.48) ug/mL Sodium Potassium Chloride Carbon Dioxide Anion Gap BUN Creatinine Estim Creat Clear Calc Estimated GFR Glucose Calcium Total Bilirubin AST ALT 21 Alkaline Phosphatase Cancelled 124 Troponin I < 0.012 (0.000-0.034) ng/mL NT-Pro-B Natriuret Pep 254 H (19.9-100) pg/mL Total Protein Cancelled 8.0 Albumin Cancelled Lipase (23-300) U/L Influenza A (RT-PCR) (Negative) Influenza B (RT-PCR) (Negative) RSV (RT-PCR) (Negative) SARS-CoV-2 RNA (RT-PCR) (Negative) 07/07/24 Range/Units 22:15 WBC (4.5-10.0) K/mm3 RBC (4.2-5.4) M/mm3 Hgb (12.0-15.0) g/dL Hct (37.0-47.0) % MCV (80-100) fl MCH (26-34) pg MCHC (32-36) g/dl RDW (11.5-14.5) % Plt Count (150-375) k/mm3 MPV (7.4-10.4) fl Immature Gran % (Auto) (0-0.5) % Neut % (Auto) (45.5-73.1) % Lymph % (Auto) (18.3-44.2) % [place] % (Auto) (2.6-8.5) % Eos % (Auto) (0-4.4) % Baso % (Auto) (0.2-1.2) % Lymph # (Auto) (0.9-3.2) K/mm3 [place] # (Auto) (0.1-0.6) K/mm3 Eos # (Auto) (0-0.3) K/mm3 Baso # (Auto) (0.0-0.1) K/mm3 Abs Immat Gran (auto) (0.00-0.031) K/mm3 Absolute Neuts (auto) (1.3-6.7) K/mm3 Absolute Nucleated RBC (0.0-0.012) K/mm3 Band Neutrophils % Nucleated RBC % (0.0-0.2) % Platelet Estimate (Adequate) Macrocytosis (NORMAL) Schistocytes PT (11.1-14.7) Seconds INR APTT (22.3-36.8) Seconds D-Dimer (<0.48) ug/mL Sodium Potassium Chloride Carbon Dioxide Anion Gap BUN Creatinine Estim Creat Clear Calc Estimated GFR Glucose Calcium Total Bilirubin AST ALT Alkaline Phosphatase Troponin I (0.000-0.034) ng/mL NT-Pro-B Natriuret Pep (19.9-100) pg/mL Total Protein Albumin 4.2 Lipase 204 (23-300) U/L Influenza A (RT-PCR) Negative (Negative) Influenza B (RT-PCR) Negative (Negative) RSV (RT-PCR) Negative (Negative) SARS-CoV-2 RNA (RT-PCR) Negative (Negative) Discharge Plan Discharge Clinical Impression: Acute exacerbation of chronic obstructive pulmonary disease Patient Disposition: Home Condition: Stable Instructions: Antibiotic Form, COPD (Chronic Obstructive Pulmonary Disease) (DC) Additional Instructions: Your evaluated in the emergency department for shortness of breath. Your workup here is reassuring. Your presentation is consistent with a COPD exacerbation. Please take the antibiotics and steroids as directed. Continue using your albuterol and Breo inhaler as directed. Follow-up with your primary care provider. Return to the emergency department if you develop new or worsening symptoms. Patient Language: Greek Prescriptions: New doxycycline hyclate 100 mg capsule 100 mg PO BID Qty: 14 0RF prednisone 20 mg tablet 40 mg PO DAILY Qty: 10 0RF No Action levothyroxine 50 mcg tablet 50 mcg PO DAILY citalopram [Celexa] 20 mg tablet 20 mg PO DAILY quetiapine 50 mg tablet 50 mg PO QACLUNCH Rx Instructions: takes at noon benztropine 0.5 mg Tablet 0.5 mg PO DIRECTED Rx Instructions: takes at 1600 albuterol sulfate 90 mcg/actuation HFA aerosol inhaler 2 puff INHALATION Q4-6H PRN (Reason: Wheezing) fluticasone propion-salmeterol [Advair HFA] 230-21 mcg/actuation Hfa Aerosol Inhaler 2 puff inhalation Q12HRT 30 Days Qty: 250 0RF Rx Instructions: pt says used PRN Q12H (DME) nebulizer and compressor Device See Rx Instructions .Route Qty: 1 0RF Rx Instructions: As directed clonazepam 1 mg tablet 1 mg PO DAILY Follow-up/Referrals: Tata,SAMY Parker [Primary Care Provider] - Quality HEART score for chest pain patients History: slightly suspicious ECG: normal Age: > or = to 65 years Risk factors: no risk factors known Troponin: < or = to 1x normal limit Heart score: 2
[2024-07-07 22:24] LABS: Basophils Percent Auto 0.2 % (0.2-1.2); Eosinophils Absolute Auto 0.6 K/mm3 (0-0.3); Eosinophils Percent Auto 6.7 % (0-4.4); Hematocrit 40.4 % (37.0-47.0); Immature Granulocyte Absolute 0.02 K/mm3 (0.00-0.031); Immature Granulocyte Percent A 0.2 % (0-0.5); Lymphocytes Absolute Auto 4.43 K/mm3 (0.9-3.2); Lymphocytes Percent Auto 52.2 % (18.3-44.2); Mean Corpuscular HGB Conc 32.2 g/dl (32-36); Mean Corpuscular Hemoglobin 34.6 pg (26-34); Mean Corpuscular Volume 107.4 fl (80-100); Mean Platelet Volume 8.5 fl (7.4-10.4); Monocytes Absolute Auto 0.5 K/mm3 (0.1-0.6); Monocytes Percent Auto 5.5 % (2.6-8.5); Neutrophils Percent Auto 35.2 % (45.5-73.1); Platelet Count Result 196 k/mm3 (150-375); Red Blood Count 3.76 M/mm3 (4.2-5.4); Red Cell Distribution Width 12.3 % (11.5-14.5); White Blood Count 8.5 K/mm3 (4.5-10.0)
[2024-07-07 22:33] LABS: Alanine Aminotransferase 21 U/L (6-35); Albumin Level 4.2 g/dL (3.5-5.1); Alkaline Phosphatase 124 U/L (38-126); Anion Gap 4 mmol/L (4-12); Aspartate Amino Transferase 28 U/L (14-36); Bilirubin,Total 0.4 mg/dL (0.2-1.3); Blood Urea Nitrogen 25 mg/dL (7-17); Calcium 10.6 mg/dL (8.4-10.2); Carbon Dioxide 29 mmol/L (22-30); Chloride 106 mmol/L (98-107); Estimated CRCL calculation 65 ml/min; Estimated Glomerular Filt Rate > 60; Glucose 96 mg/dL (65-110); Lipase 204 U/L (23-300); Potassium 4.2 mmol/L (3.4-5.0); Sodium 139 mmol/L (137-145)
[2024-07-07 22:37] LABS: INR 0.9; Prothrombin Time 12.4 Seconds (11.1-14.7)
[2024-07-07 22:38] LABS: Macrocytosis 1+ (NORMAL); Partial Thromboplastin Time 21.6 Seconds (22.3-36.8); Platelet Estimate Adequate (Adequate); Schistocytes None Seen
[2024-07-07 22:45] LABS: NT Pro B Type Natriuretic Pept 254 pg/mL (19.9-100); Troponin I < 0.012 ng/mL (0.000-0.034)
[2024-07-07 22:52] LABS: D Dimer 0.83 ug/mL (<0.48)
[2024-07-07 23:01] LABS: Influenza A QL RT-PCR Negative (Negative); Influenza B QL RT-PCR Negative (Negative); RSV RNA, RT-PCR Negative (Negative); SARS-CoV-2 RNA PCR Negative (Negative)
[2024-07-08 00:35] VITALS: PULSE 70; RESP 20
[2024-07-08] MEDS: IPRATROPIUM 0.5 MG/ALBUTEROL SULFATE 2.5 MG AMPUL.NEB 3 ML INHALATION (00:35)
[2024-07-08 00:38] VITALS: O2SAT 97
[2024-07-08] MEDS: DOXYCYCLINE HYCLATE 100 MG TABLET PO (01:00)
[2024-07-08] MEDS: methylPREDNISolone SOD SUCC 125 MG VIAL IV PUSH (01:02)
[2024-07-08 01:10] VITALS: BP 145/85; PULSE 67; RESP 17; O2SAT 97
== END 2024-07-08 01:10 | disposition home or self-care (01) ==
PROVIDERS: Emergency Provider Physician Assistant; PCP Physician Assistant
DX: J44.1 Chronic obstructive pulmonary disease with (acute) exacerbation (principal); E03.9 Hypothyroidism, unspecified; J45.909 Unspecified asthma, uncomplicated; Z86.718 Personal history of other venous thrombosis and embolism; M81.0 Age-related osteoporosis without current pathological fracture; Z87.891 Personal history of nicotine dependence; Z20.822 Contact with and (suspected) exposure to COVID-19
CPT/HCPCS: 36415; 71046; 80053; 83690; 83880; 84484; 85025; 85380; 85610; 85730; 87637; 93005; 94640; 96374; 99284; A9270; J2919

== ENCOUNTER 2024-11-18 13:40 | Emergency (ER) | payer MEDICARE, MEDICAID, SELFPAY ==
--- NOTE | ~2024-11-18 | CT_ITS ---
Dakotah Jernigan EXAMINATION: CT abdomen pelvis w con COMPARISON: None HISTORY: Epigastric abdominal pain TECHNIQUE: Axial images were obtained through the abdomen, pelvis post administration of IV contrast. Oral contrast was also administered. Coronal reconstruction images were obtained from the axial views. CT scan performed using dose optimization techniques including the following automated exposure control; adjustment of mA and/or kV; use of iterative reconstruction technique. Automatic exposure control was used to reduce radiation dose. Permanent radiation dose record is archived to PACS. FINDINGS: CT abdomen: LUNG BASES: Lung bases demonstrate chronic changes. LIVER: Mild intrahepatic biliary duct dilatation. Within the liver there are simple appearing cysts the largest right lobe liver 4 x 5 cm. The main portal vein is patent. SPLEEN: Unremarkable. KIDNEYS: Right Kidney: Right kidney there are renal calculi noted the largest mid pole 1 x 1 cm, no hydronephrosis. Left Kidney: Left kidney there are renal calculi noted the largest 1.3 x 1.4 cm with simple appearing renal cysts, no hydronephrosis or hydroureter. ADRENAL GLANDS: Unremarkable. PANCREAS: Pancreas demonstrates abnormal density with suggestion of cystic lesions incompletely evaluated, contrast-enhanced MRI recommended. GALLBLADDER/BILIARY: CBD is dilated measuring 1.5 cm tapering abruptly, distal stricture is not excluded. STOMACH AND ESOPHAGUS: Small hiatal hernia. BOWEL/MESENTERY: Moderate fecal content. There is no colitis or diverticulitis. Appendix not identified. Mesentery normal. No dilated small bowel loops. ADENOPATHY/RETROPERITONEUM: No lymphadenopathy. AORTA/VASCULATURE: Normal caliber aorta. FREE FLUID OR FREE AIR: No gross free fluid.. CT pelvis: SOLID ORGANS/REPRODUCTIVE: Unremarkable. BLADDER: Artifact limits evaluation of the bladder: The bladder appears distended. OSSEOUS STRUCTURES: No acute osseous abnormality.No suspicious lesions. OVERLYING SOFT TISSUES: Unremarkable. IMPRESSION: 1. No acute intra-abdominal process. 2. Incidental findings above. MRI with MRCP sequences is recommended Reviewed, dictated and finalized at location P.
[2024-11-18 13:53] VITALS: BP 136/81; PULSE 81; RESP 20; TEMP 36.6; O2SAT 96
[2024-11-18 16:16] VITALS: BP 137/94; PULSE 73; RESP 18; O2SAT 96
[2024-11-18 16:23] LABS: Hematocrit 41.5 % (37.0-47.0); Hemoglobin 13.8 g/dL (12.0-15.0); Immature Granulocyte Percent A 0.3 % (0-0.5); Lymphocytes Absolute Auto 3.71 K/mm3 (0.9-3.2); Mean Corpuscular HGB Conc 33.3 g/dl (32-36); Mean Corpuscular Hemoglobin 35.0 pg (26-34); Mean Corpuscular Volume 105.3 fl (80-100); Nucleated Red Blood Cells Absolute Auto 0.000 K/mm3 (0.0-0.012); Nucleated Red Blood Cells Perc 0.0 % (0.0-0.2); Platelet Count Result 179 k/mm3 (150-375); Red Blood Count 3.94 M/mm3 (4.2-5.4); White Blood Count 10.0 K/mm3 (4.5-10.0)
[2024-11-18 16:29] LABS: Add Urine Microscopic? YES; Appearance Urine Turbid (Clear); Glucose Urine UA Negative (Negative); Leukocyte Esterase Ur 3+ LEU/UL (Negative); Nitrate Urine Negative (Negative); Non Pathogenic Casts 0-2; Specific Grav Ur 1.014 (1.001-1.035)
[2024-11-18 16:36] LABS: Alanine Aminotransferase 18 U/L (6-35); Albumin Level 4.2 g/dL (3.5-5.1); Alkaline Phosphatase 128 U/L (38-126); Anion Gap 6 mmol/L (4-12); Aspartate Amino Transferase 28 U/L (14-36); Bilirubin,Total 0.6 mg/dL (0.2-1.3); Blood Urea Nitrogen 34 mg/dL (7-17); Calcium 10.6 mg/dL (8.4-10.2); Carbon Dioxide 26 mmol/L (22-30); Chloride 104 mmol/L (98-107); Estimated CRCL calculation 56 ml/min; Estimated Glomerular Filt Rate 58; Glucose 96 mg/dL (65-110); Lipase 125 U/L (23-300); Potassium 4.5 mmol/L (3.4-5.0); Sodium 136 mmol/L (137-145); Total Protein 8.4 g/dL (6.3-8.2)
[2024-11-18 17:29] VITALS: BP 130/69; PULSE 71; RESP 15; O2SAT 98
[2024-11-18] MEDS: cefTRIAXone 1 GM in SODIUM CHLORIDE 0.9% IV 50 ML 100 ML IVPB (20:09)
--- NOTE | 2024-11-18 21:41 | ED_ITS ---
HPI - General Adult General Chief complaint: Abdominal Pain Stated complaint: ABD PAIN Time Seen by Provider: 11/18/24 16:16 History of Present Illness HPI narrative: This is a 69-year-old female presenting ED with chief complaint of abdominal pain. Patient says that around noon she was watching TV when she had a severe pain in the epigastric region. It lasted for about 1 hour and then resolved. She is currently pain-free. She has not had any fevers nausea vomiting or diarrhea. She has felt well in the preceding days to the episode. She does note that she has had some urinary symptoms. Related Data Home Medications ?Medication ?Instructions ?Recorded ?Confirmed ?Last Taken ?Type levothyroxine 50 mcg tablet 50 mcg PO DAILY 09/22/20 0 02/09/24 02/08/24 History benztropine 0.5 mg tablet 0.5 mg PO DIRECTED 02/09/24 02/08/24 History citalopram 20 mg tablet (Celexa) 20 mg PO DAILY 02/09/24 02/08/24 History quetiapine 50 mg tablet 50 mg PO QACLUNCH 11/20/20 0 02/09/24 02/08/24 History albuterol sulfate 90 mcg/actuation 2 puff inhalation Q 4-6H PRN 04/12/21 02/09/24 02/08/24 History aerosol inhaler Wheezing clonazepam 1 mg tablet 1 mg PO DAILY 02/09/2402/0802/08/24 History Allergies Allergy/AdvReac Type Severity Reaction Status Date / Time sulfamethoxazole Allergy Mild ITCHING/KATE Verified 11/18/24 13:41 H levofloxacin (From Levaquin) Allergy Unknown Unknown Verified 11/18/24 13:41 Penicillins Allergy Unknown Itching Verified 11/18/24 13:41 trimethoprim Allergy Unknown Itching Verified 11/18/24 13:41 [facility] Past Medical History Medical History History of deep venous thrombosis (DVT) of distal vein of right lower extremity Irritable bowel syndrome Chronic obstructive pulmonary disease Bipolar 1 disorder Anxiety Depression Hypothyroid Ankle fracture, left Osteoporosis Kidney stones Endometriosis Pneumonia Asthma Surgical History Surgical History History of cholecystectomy History of tubal ligation History of bilateral hip replacements Family History Family History Sibling Patient's sister is in good health Father Acute myocardial infarction Hypertension Mother Family history of diabetes mellitus in first degree relative Other Family history of blood dyscrasia Social History Social History Social History: Surrogate decision maker: Mega Araay, niece. Code status: Full code. Years smoked: 17 Smoking status: Former smoker Tobacco type: cigarettes Second hand tobacco smoke exposure: No Smoking end date: 02/07/90 Additional smoking assessment comments: Quit at the age of 34. Boyfriend is a heavy smoker. Alcohol intake: former Drinks per week: 1 Substance use: never Substance use type: does not use Do You Feel Safe in your Home?: Yes Lack of Transportation: No Lack of Food: Never True Current Housing: Decline to Answer Concerned About Future Housing: Decline to Answer Difficulty Paying Gas/Electric Bills: Decline to Answer Difficulty Paying for Meds: Decline to Answer Currently Unemployed: Decline to Answer Education: Decline to Answer Difficulty w/ Childcare or Family Care: Decline to Answer Living arrangements: alone Additional living arrangements comments: The patient lives in her own apartment but stays with her boyfriend several days a week. Occupation/Education: other Additional occupation/education comments: Disabled. Gender identity (if verbalized by the patient): Female Spiritual care concerns: No Exam 2 Narrative: APPEARANCE: No apparent distress. Head: atraumatic. EYES: EOMI, NOSE: Atraumatic NECK: Trachea midline RESPIRATORY: No increased rate of breathing clear to auscultation CARDIOVASCULAR: RRR, no peripheral edema ABDOMINAL: Non-distended soft nontender no guarding rebound MUSCULOSKELETAl: No obvious deformities NEURO: Alert. Moving 4/4 extremities SKIN:: Warm, dry. Normal color PSYCHIATRIC: Normal affect Course Vital Signs Vital signs: Vital Signs Temperature 97.8 F 11/18/24 13:53 Pulse Rate 81 11/18/24 13:53 Respiratory Rate 20 11/18/24 13:53 Blood Pressure 136/81 11/18/24 13:53 Pulse Oximetry 96 11/18/24 13:53 Temperature 97.8 F 11/18/24 13:53 Pulse Rate 71 11/18/24 17:29 Respiratory Rate 15 11/18/24 17:29 Blood Pressure 130/69 11/18/24 17:29 Pulse Oximetry 98 11/18/24 17:29 Medical Decision Making [facility] Narrative Medical decision making narrative: -Course: 69-year-old female presenting with a brief episode of epigastric pain. Pain is completely resolved. Her abdominal exam is benign. Her vital signs are stable and she is well-appearing on exam. Due to her advanced age laboratory studies and CT abdomen pelvis were obtained. CT abdomen pelvis showed dilation of the common bile duct up to 1.5 cm with a rapid tapering for a possible stricture. Review of the labs show that she does not have any elevations in her bilirubin, AST or ALT. Alk-phos is 128 which is consistent with previous levels when she has been in our emergency department. Results were discussed with her GI physician. As the patient is asymptomatic with normal labs normal abdominal exam she is a candidate for close outpatient follow-up. This was discussed with the patient and she is comfortable following up Dr. Anderson. Patient will be discharged with close follow-up. Given return precautions for fevers severe abdominal pain or any new or worsening symptoms. -DDX includes but is not limited to: Gastritis, peptic ulcer disease, gas, biliary disease, pancreatitis Vital Signs Vital Signs: Vital Signs Temperature 97.8 F 11/18/24 13:53 Pulse Rate 81 11/18/24 13:53 Respiratory Rate 20 11/18/24 13:53 Blood Pressure 136/81 11/18/24 13:53 Pulse Oximetry 96 11/18/24 13:53 Temperature 97.8 F 11/18/24 13:53 Pulse Rate 71 11/18/24 17:29 Respiratory Rate 15 11/18/24 17:29 Blood Pressure 130/69 11/18/24 17:29 Pulse Oximetry 98 11/18/24 17:29 Lab Data 11/18/24 16:12 11/18/24 16:12 Labs: Lab Results 11/18/24 Range/Units 16:12 WBC 10.0 (4.5-10.0) K/mm3 RBC 3.94 L (4.2-5.4) M/mm3 Hgb 13.8 (12.0-15.0) g/dL Hct 41.5 (37.0-47.0) % MCV 105.3 H (80-100) fl MCH 35.0 H (26-34) pg MCHC 33.3 (32-36) g/dl RDW 12.4 (11.5-14.5) % Plt Count 179 (150-375) k/mm3 MPV 8.3 (7.4-10.4) fl Immature Gran % (Auto) 0.3 (0-0.5) % Neut % (Auto) 54.5 (45.5-73.1) % Lymph % (Auto) 37.2 (18.3-44.2) % [place] % (Auto) 5.0 (2.6-8.5) % Eos % (Auto) 2.7 (0-4.4) % Baso % (Auto) 0.3 (0.2-1.2) % Lymph # (Auto) 3.71 H (0.9-3.2) K/mm3 [place] # (Auto) 0.5 (0.1-0.6) K/mm3 Eos # (Auto) 0.3 (0-0.3) K/mm3 Baso # (Auto) 0.0 (0.0-0.1) K/mm3 Abs Immat Gran (auto) 0.03 (0.00-0.031) K/mm3 Absolute Neuts (auto) 5.4 (1.3-6.7) K/mm3 Absolute Nucleated RBC 0.000 (0.0-0.012) K/mm3 Nucleated RBC % 0.0 (0.0-0.2) % Sodium 136 L (137-145) mmol/L Potassium 4.5 (3.4-5.0) mmol/L Chloride 104 (98-107) mmol/L Carbon Dioxide 26 (22-30) mmol/L Anion Gap 6 (4-12) mmol/L BUN 34 H (7-17) mg/dL Creatinine 0.95 (0.7-1.0) mg/dL Estim Creat Clear Calc 56 ml/min Estimated GFR 58 L (59 - ) Glucose 96 (65-110) mg/dL Calcium 10.6 H (8.4-10.2) mg/dL Total Bilirubin 0.6 (0.2-1.3) mg/dL AST 28 (14-36) U/L ALT 18 (6-35) U/L Alkaline Phosphatase 128 H (38-126) U/L Total Protein 8.4 H (6.3-8.2) g/dL Albumin 4.2 (3.5-5.1) g/dL Lipase 125 (23-300) U/L Urine Color Yellow (Yellow) Urine Appearance Turbid H (Clear) Urine pH 5.5 (5.0-9.0) Ur Specific [place] 1.014 (1.001-1.035) Urine Protein 1+ H (Negative) mg/dL Urine Glucose (UA) Negative (Negative) mg/dL Urine Ketones Negative (Negative) mg/dL Ur Blood (Man) 1+ H (Negative) Urine Nitrate Negative (Negative) Urine Bilirubin Negative (Negative) Urine Urobilinogen 0.2 (<2.0) mg/dL Leukocyte Esterase Rfl 3+ H (Negative) CAITLIN/UL Urine RBC 3-5 H (0-2) /hpf Urine WBC >100 H (0-3) /hpf Ur Squamous Epith Cells Few (Few) /hpf Urine Bacteria 2+ H /hpf Urine Casts 0-2 Discharge Plan Discharge Clinical Impression: Acquired dilation of bile duct, Abdominal pain Patient Disposition: Home Condition: Stable Instructions: Antibiotic Form, MRCP (Magnetic Resonance Cholangiopancreatography) (DC) Additional Instructions: You were seen in the emergency department for abdominal pain. Your CT showed that you have a dilated bile duct. This will need an MRI for further evaluation. Please call Dr. Anderson's clinic 1st thing tomorrow morning to arrange close follow-up in the next 1-5 days. If you develop fevers, persistent abdominal pain, nausea or vomiting, or yellowing of your skin please return to the emergency department immediately for re-evaluation. Patient Language: Kosovan Prescriptions: No Action levothyroxine 50 mcg tablet 50 mcg PO DAILY citalopram [Celexa] 20 mg tablet 20 mg PO DAILY quetiapine 50 mg tablet 50 mg PO QACLUNCH Rx Instructions: takes at noon benztropine 0.5 mg Tablet 0.5 mg PO DIRECTED Rx Instructions: takes at 1600 albuterol sulfate 90 mcg/actuation HFA aerosol inhaler 2 puff INHALATION Q4-6H PRN (Reason: Wheezing) doxycycline hyclate 100 mg capsule 100 mg PO BID Qty: 14 0RF prednisone 20 mg tablet 40 mg PO DAILY Qty: 10 0RF fluticasone propion-salmeterol [Advair HFA] 230-21 mcg/actuation Hfa Aerosol Inhaler 2 puff inhalation Q12HRT 30 Days Qty: 250 0RF Rx Instructions: pt says used PRN Q12H (DME) nebulizer and compressor Device See Rx Instructions .Route Qty: 1 0RF Rx Instructions: As directed clonazepam 1 mg tablet 1 mg PO DAILY Follow-up/Referrals: Tata,SAMY Parker [Primary Care Provider, Unknown] Marco Antonio Zheng MD [Physician, Gastroenterology] - 1 Day Referral Note: Dilated bile duct
== END 2024-11-18 23:01 | disposition home or self-care (01) ==
PROVIDERS: Emergency Provider Emergency Medicine; PCP Physician Assistant
DX: K83.8 Other specified diseases of biliary tract (principal); R10.13 Epigastric pain; J44.9 Chronic obstructive pulmonary disease, unspecified; E03.9 Hypothyroidism, unspecified; N80.9 Endometriosis, unspecified; M81.0 Age-related osteoporosis without current pathological fracture; K58.9 Irritable bowel syndrome, unspecified; F31.9 Bipolar disorder, unspecified; F41.9 Anxiety disorder, unspecified; Z96.643 Presence of artificial hip joint, bilateral; Z87.442 Personal history of urinary calculi; Z86.718 Personal history of other venous thrombosis and embolism; Z87.01 Personal history of pneumonia (recurrent); Z87.891 Personal history of nicotine dependence; Z90.49 Acquired absence of other specified parts of digestive tract; Z79.899 Other long term (current) drug therapy
CPT/HCPCS: 36415; 74177; 80053; 81001; 83690; 85025; 87086; 87147; 87186; 96365; 99284; J0696; Q9967

== ENCOUNTER 2024-12-06 09:21 | Outpatient (CLI) | payer MEDICARE, MEDICAID, SELFPAY ==
--- OUTSIDE RECORDS SUMMARY | 2023-09-06 06:00 | XMS_ITS ---
Author Organization [facility] Address [address] [place] [address] Care Team Providers Care Corporate Librarian Name Role Phone Jewel Gonzales Primary Care Provider [facility] Unav ailable Unavailable REASON FOR VISIT Psych F/U Social History Sex Assigned At : Social History Observation Description Sex Assigned At Female Encounters Encounter Location Date Provider Diagnosis [place] [address] [address] [place] [address] 09/06/2023 Jewel Gonzales Plan Of Treatment Next Appt Details Provider Name:Jewel Gonzales, 10:00:00 AM, [address] [facility] , [place], [address], Progress Notes * Noam JERNIGANB:1955 ( 69 yo F)Acc No.[id number]:09/06/2023 UNLOCKED PROGRESS NOTE Patient: Dakotah DENG Provider: Padilla Gonzales :1955 A ge:68 Y S ex:Female Date:09/06/2023 Address:[address] [place] [address], [address], [place], [place] Subjective: * Chief Complaints: * 1 . Psych F/U. * Medical History: Objective: * Vitals: Assessment: Plan: * Treatment: * * Electronic signature of Jewel Gonzales MD, [id number] on 12/06/2024 at 10:01 AM CDT Sign off status: Pending * Provider: Padilla Gonzales Date: 0 09/06/2023 Generated for Tony bess/Salvatore/Gt on: 10:01 AM CDT
--- OUTSIDE RECORDS SUMMARY | 2023-09-30 09:00 | XMS_ITS ---
Author Organization [facility] Address [address] [place] [address] Care Team Providers Care Rouge Sifter And Miller Name Role Phone Jewel Gonzales Primary Care Provider [facility] Unav ailable Unavailable REASON FOR VISIT 1 Month Psych F/U & Med Refill Social History Sex Assigned At : Social History Observation Description Sex Assigned At Female Encounters Encounter Location Date Provider Diagnosis [address] [place] [address] 09/30/2023 Jewel Gonzales Plan Of Treatment Next Appt Details Provider Name:Jewel Gonzales, 10:00:00 AM, [address] [place] [address] , [place], [address], Progress Notes * Noam JERNIGANB:1955 ( 69 yo F)Acc No.[id number]:09/30/2023 UNLOCKED PROGRESS NOTE Patient: Gaetano GALASherwin CHISHOLMi Provider: Padilla Gonzales :1955 A ge:68 Y S ex:Female Date:09/30/2023 Address:[address] [place] [address], [address], [place], [place] Subjective: * Chief Complaints: * 1 . 1 Month Psych F/U & Med Refill. * Medical History: Objective: * Vitals: Assessment: Plan: * Treatment: * * Electronic signature of Jewel Gonzales MD, [id number] on 12/06/2024 at 10:02 AM CDT Sign off status: Pending * Provider: Padilla Gonzales Date: 0 09/30/2023 Generated for Tony bess/Salvatore/Gt on: 1 10:02 AM CDT
--- NOTE | ~2024-12-06 | XR_ITS ---
EXAMINATION: XR UGIAC wo kub DATE: 12/06/2024 10:06 INDICATION: Intermittent dysphagia TECHNIQUE: The patient drank thick barium, gas-producing crystals, and thin barium. A total of 576 fluoroscopic images of the esophagus, stomach, and proximal small bowel were obtained. Fluoroscopy exposure time was 2.1 minutes. Total DAP was 19.702 mGycm^2. COMPARISON: None. FINDINGS: The esophagus is normal without mass or stricture. Esophageal motility is normal. There is a small sliding-type hiatal hernia with gastroesophageal junction approximately 6 cm above level of the diaphragm. There was no gastroesophageal reflux with provocative maneuvers. The stomach and proximal small bowel are otherwise normal. Cholecystectomy clips in right upper quadrant. IMPRESSION: 1. Small sliding-type hiatal hernia without evident gastroesophageal reflux with provocative maneuvers. Otherwise unremarkable upper GI study. Reviewed, dictated and finalized at location A. IMPRESSION: 1. Small sliding-type hiatal hernia without evident gastroesophageal reflux wit h provocative maneuvers. Otherwise unremarkable upper GI study.
--- OUTSIDE RECORDS SUMMARY | 2024-12-06 10:02 | XMS_ITS | Clinical Summary ---
Author Organization [facility] Address [address] [place] [address] Care Team Providers Care Valve Inserter Name Role Phone Elena Payton Primary Care Provider [phone] Robbin Rodgers MD Unavailable Allergies Active Allergy [...] Date Hematuria 01/11/2017 Deep vein thrombosis (DVT) of lower extremity Family History Medical History Relation Comments Heart [...] Comments Blood Pressure 104/69 01/06/2017 8:32 AM BOOKS SALESPERSON Pulse 81 01/06/2017 8:32 AM BOOKS SALESPERSON Temperature - - Respiratory Rate - - Oxygen Saturation - - Inhaled Oxygen Concentration - - Weight 69.9 kg (154 lb) 01/06/2017 8:32 AM BOOKS SALESPERSON Height 170.2 cm (5' 7) 01/06/2017 8:32 AM BOOKS SALESPERSON Body Mass Index 24.12 01/06/2017 8:32 AM BOOKS SALESPERSON Plan of Treatment Health Maintenance Due Date Last Done Comments Colorectal Cancer Screening Colonoscopy (10 Years) 1955 Hepatitis C 1972 DTaP, Tdap and Td Vaccines ( 1 - Tdap) 1973 Mammogram Screening 1994 Pneumococcal Vaccine: 50+ Ye ars (1 of 1 - PCV) 2004 Zoster Vaccines (1 of 2) 2004 Annual Medicare Wellness Visit 05/15/2019 Dexa Scan (General) 05/15/2019 COVID-19 Vaccine ( - 2024-2 6 season) 2024 Influenza Adult (#1) 2024 RSV Immunization or 60+ Years (1 - 1-dose 75+ series) 2029 Hepatitis A Vaccines Aged Out No long er eligible based on patient's age to complete this topic Meningococcal B Vaccine Aged Out No l onger eligible based on patient's age to complete this topic Meningococcal Vaccine Aged Out No nilson tommy eligible based on patient's age to complete this topic RSV Immunizations Under 20 Months Aged Out No longer eligible based on patient's age to complete this topic Insurance MEDICAID MEDICARE Care Teams Valve Inserter Relationship Specialty Start Date End Date Elena Payton PA PCP - General 12/28/16 Robbin Rodgers MD [id number] [place] [address] Referring Physician VASCULAR SURGERY 12/28/16
--- OUTSIDE RECORDS SUMMARY | 2024-12-06 10:02 | XMS_ITS | Patient Health Record ---
Author Organization [facility] Address [address] [place] [address] Care Team Providers Care Voice Data Communications Engineer Name Role Phone Jewel Gonzales Primary Care Provider [phone] [facility] Unav ailable Unavailable Allergies Allergen (clinical [...] Duration) Notes Start Date End Date Status Benztropine Mesylate 0.5 MG 1 tablet at bedtime Orally Once a day; Duration: 30 days Active Citalopram Hydrobromide 20 MG 1 tablet Orally Once a day; Duration: 30 days Active QUEtiapine Fumarate 50 MG 1 tablet Orally Once a day; Duration: 30 days Active QUEtiapine Fumarate 300 MG 1 tablet at bedtime Orally Once a day; Duration: 30 day(s) 03/24/2021 Not-Taking Levothyroxine Sodium 50 MCG 1 tablet in the morning on an empty stomach Orally Once a day doseage uncertain Active clonazePAM 1 MG 1 tablet Orally twice a day; Duration: 30 days F41.9 12/04/2024 Active RisperDAL 2 MG 1 tablet Orally Once a day; Duration: 30 days Active SEROquel 200 MG 1 tablet at bedtime Orally Once a day; Duration: 30 days Active Immunizations Vaccine Route Administration Date Status Comme nts FLU VAC NO PRSV 4VAL 6 mo+ IM Intramuscular 12/21/2022 Administered Pt crow well. Social History Tobacco Use: Social History Observation Description Date Details (start date - stop date) Never Smoker NA - NA Sex Assigned At : Social History Observation Description Sex Assigned At Female Dont use, Tobacco Use/Smoking Question Answer Notes Are you a former smoker Tobacco Control (Standard) Question Answer Notes Tobacco use: Nonsmoker Problems Problem Type SNOMED Code ICD Code Onset Dates Problem Status W/U Status Risk Notes Problem Anxiety (19102042) Anxiety (F41.9) 11/06/2021 Active confirmed Problem Bipolar 1 disorder (035454057) Bipolar 1 disorder (F31.9) 11/06/2021 Active confirmed Problem Overweight (555400955) Over weight (E66.3) Active confirmed Vital Signs Heart Rate 115 /min 12/04/2024 Respiratory Rate 16 /min 12/04/2024 Blood pressure diastolic 82 mm Hg 12/04/2024 Oximetry 98 % 12/04/2024 Height 67in in 12/04/2024 Blood pressure systolic 128 mm Hg 12/04/2024 Weight 194.4lbs lbs 12/04/2024 BMI 30.44 kg/m2 12/04/2024 Encounters Encounter Location Date Provider Diagnosis [address] [address] 12/27/2023 Arif Habib Anxiety F41.9 and Bipolar [address] [address] 03/20/2024 Arif Habib Nutritional counseli ng Z71.3 ; Anxiety F41.9 and Bipolar [address] disorder [address] [address] 06/12/2024 Arif Habib Nutritional counseli ng Z71.3 ; Anxiety F41.9 and Bipolar 1 disorder F[address] [address] 09/11/2024 Arif Habib Over weight E66.3 ; Nutritional counseling Z71.3 ; Anxiety F41.9 and Bipolar 1 disorder F[address] [address] 12/04/2024 Arif Habib Over weight E66.3 ; Nutritional counseling Z71.3 ; Anxiety F41.9 and Bipolar 1 disorder F31.9 Assessments Encounter Date Diagnosis (ICD Code) Assessment Notes Treatment Notes Treatment Clinical Notes Section Notes 06/12/2024 Nutritional counseling (ICD-10 - Z71.3) 03/20/2024 Nutritional counseling (ICD-10 - Z71.3) 12/27/2023 Anxiety (ICD-10 - F41.9) 12/04/2024 Over weight (ICD-10 - E66.3) 09/11/2024 Over weight (ICD-10 - E66.3) 09/11/2024 Nutritional counseling (ICD-10 - Z71.3) 12/04/2024 Nutritional counseling (ICD-10 - Z71.3) 12/27/2023 Bipolar 1 disorder (ICD-10 - F31.9) risk & benefits discussed in detail. Continue current treatment. No involuntary movements reported. 03/20/2024 Anxiety (ICD-10 - F41.9) 06/12/2024 Anxiety (ICD-10 - F41.9) 06/12/2024 Bipolar 1 disorder (ICD-10 - F31.9) risk & benefits discussed in detail. Continue current treatment. No involuntary movements reported. 03/20/2024 Bipolar 1 disorder (ICD-10 - F31.9) risk & benefits discussed in detail. Continue current treatment. No involuntary movements reported. 12/04/2024 Anxiety (ICD-10 - F41.9) 09/11/2024 Anxiety (ICD-10 - F41.9) 09/11/2024 Bipolar 1 disorder (ICD-10 - F31.9) risk & benefits discussed in detail. Continue current treatment. No involuntary movements reported. 12/04/2024 Bipolar 1 disorder (ICD-10 - F31.9) risk & benefits discussed in detail. Continue current treatment. No involuntary movements reported. Plan Of Treatment Next Appt Details Provider Name:Jewel Gonzales, 10:00:00 AM, [address], [place], [address], Insurance Providers Payer Name Payer Address Payer Phone Subscriber Number Group Number Insured Name Patient Relationship to Insured Coverage Start Date Coverage End Date MEDICARE PART A [address] [place] [phone] [id number] Dakotah Jernigan Self - patient is the insured 5 A[employer] Medicare [address] [place] [phone] [id number] Dakotah Jernigan Self - patient is the insured 1 1 MEDICAID [address] [place] [address] [id number] Dakotah Jernigan Self - patient is the insured 0 UHC Medicare Assure [address] [address] [place] [address] [id number] Dakotah Jernigan Self - patient is the [...] for blood clots, kidney stones ,asthma attacks [facility] for indigestion and UTI Sep 2020
--- OUTSIDE RECORDS SUMMARY | 2024-12-06 10:02 | XMS_ITS | Clinical Summary ---
Author Organization [facility] Address [address] [place] [address] Care Team Providers Care Plasma Specialist Name Role Phone Elena Payton Primary Care Provider [phone] Allergies Active Allergy Reactions Criticality Noted Date [...] on file Legal Sex Female 11:43 AM PATIENT SERVICE ASSOCIATE Gender Identity Not on file Sexual Orientation Not on file Last Filed Vital Signs Vital Sign Reading Time Taken Comments Blood Pressure 106/62 01/18/2017 3:02 PM PATIENT SERVICE ASSOCIATE Pulse 75 01/18/2017 3:02 PM PATIENT SERVICE ASSOCIATE Temperature - - Respiratory Rate - - Oxygen Saturation 97% 01/18/2017 3:02 PM PATIENT SERVICE ASSOCIATE Inhaled Oxygen Concentration - - Weight 69.4 kg (153 lb) 01/18/2017 3:02 PM PATIENT SERVICE ASSOCIATE Height 171.5 cm (5' 7.5) 01/18/2017 3:02 PM PATIENT SERVICE ASSOCIATE Body Mass Index 23.61 01/18/2017 3:02 PM PATIENT SERVICE ASSOCIATE Plan of Treatment Health Maintenance Due Date [...] 06/22/2016, Additional history exists INFLUENZA VACCINE (#1) 2024 RSV VACCINE (60+ or ) (1 - 1-dose 75+ series) 2029 Insurance MEDICARE PART A AND B Care Teams Plasma Specialist Relationship Specialty Start Date End Date Elena Payton PA PCP - General Physician Electrical Timing Device Calibrator 01/18/17
--- OUTSIDE RECORDS SUMMARY | 2024-12-06 10:02 | XMS_ITS | Encounter Summary ---
Author Organization [facility] Address [address] [place] [address] Care Team Providers Care Welding Machine Operator Helper Gas Name Role Phone Elena Payton Primary Care Provider [phone] Robbin Rodgers MD Unavailable Encounter Details Date Type Department Care Team (Latest Contact Info) Description 12/13/2017 Abstract [facility] Cayetano Day MD Social [...] on filedocumented in this encounter Care Teams Welding Machine Operator Helper Gas Relationship Specialty Start Date End Date Elena Payton PA PCP - General 12/28/16 Robbin Rodgers MD [address] [address] Referring Physician VASCULAR SURGERY 12/28/16 documented as of this encounter
--- OUTSIDE RECORDS SUMMARY | 2024-12-06 10:02 | XMS_ITS | Clinical Summary ---
Author Organization [facility] [address] Address [address] [place] [address] Care Team Providers Care Body Shop Technician Name Role Phone Elena Payton Primary Care Pr ovider Allergies Active Allergy Reactions Criticality Noted Date Comments Ciprofloxacin Nausea & Vomiting Low 07/03/2024 Codeine Itching,Unknown Low 12/28/2016 Penicillins Fever,Shortness of breath,Unknown High 12/28/2016 Sulfa (Sulfonamide Antibiotics) Itching,Nausea And Vomiting,Unknown Medium 12/28/2016 Sulfamethoxazole-Trimethoprim Itching,Na usea And Vomiting,Unknown Low 12/28/2016 Unclassified Drug Unknown 12/28/2016 Medications inhalat.spacing dev,large mask (OptiChamber Ivette Lg Mask) spacer OptiChamber Ivette [facility] with Large Mask Active albuterol [...] daily 3 Active azithromycin (ZITHROMAX) 250 mg tablet Take 2 tabs (500 mg) by mouth today, than 1 tab (250 mg) daily for 4 days. 6 tablet 5 [...] on file Legal Sex Female 6:39 AM WASTE BALER Gender Identity Not on file Sexual Orientation [...] Visit 65+ 05/15/2019 Covid-19 Vaccine (3 - 2024-2 6 season) 2024 04/06/2020, 03/16/2020 Influenza Vaccine (#1) 2024 3, 11/21/2020, 02/07/2014, Additional history exists DTaP/Tdap/Td Vaccine (4 - Td or Tdap) 09/22/2030 09/22/2020, 09/21/2012, 09/21/2012 Procedures Procedure Name Priority Date/Time Associated Diagnosis Comments SCREENING MAMMOGRAM BILATERAL W YOSEF Routine 06/22/2016 9:57 AM CDT from Last 3 Months or Most Recently Relevant to Health Maintenance Results * Screening Mammogram Bilateral W Yosef (06/22/2016 [...] signed by: Edy Olsen M.D., md/:06/22/2016 11:03:24 Tube And Rod Straightener: Jaz BARAJAS)(Rey), [facility] letter sent: Normal Exam Reading [...] mammogram, 04/18/2013 mammogram, and 03/24/2012 mammogram - [facility]. BREAST TISSUE: The tissue of [...] mammogram, 04/18/2013 mammogram, and 03/24/2012 mammogram - [facility]. BREAST TISSUE: The tissue of both [...] signed by: Edy Olsen M.D., md/:06/22/2016 11:03:24 Tube And Rod Straightener: Jaz Oneill RT(Francisco)(Rey), [facility] letter sent: Normal Exam Reading location: BI-RADS: 2 Benign [EOD] us Elena Nati LOPEZ IMG MAMMO PROCED URES Final Result from Last 3 Months or Most Recently Relevant to Health Maintenance Insurance * Guarantor: Sherwin Jerniganmanuel Beauchamp Account Type Relation to Patient Date of Phone Billing Address Personal/Family Self 1955 [address] [place] [address] [facility] MEDICARE * Guarantor: Sherwin Jerniganmanuel Beauchamp Account Type Relation to Patient Date of Phone Billing Address Personal/Family Self 1955 [address] [place] [address] MEDICARE IDPA Care Teams Body Shop Technician Relationship Specialty Start Date End Date Elena Payton PA PCP - General Physician Photographic Equipment Mechanic 09/11/18
--- OUTSIDE RECORDS SUMMARY | 2024-12-06 10:02 | XMS_ITS | Patient Health Record ---
Author Organization [facility] Address [address] [place], [place] [id number] Care Team Providers Care Virtualization Consultant Name Role Phone BECKY Ramirez Unavailable [phone] Néstor Wu Unavailable Unavailable Reason For Referral No Information Social History Social History Additional Details Category Social Info Options Details Migrated Social History Migrated Social History History of tobacco use : , Smoking Status : Never smoked Plan Of Treatment No Information Insurance Providers Payer Name Payer Address Payer Phone Subscriber Number Group Number Insured Name Patient Relationship to Insured Coverage Start Date Coverage End Date Medicare Part [place] [address] [place] [address] [id number] CASI DELEON Self - patient is the insured [facility] [address] [place], [place] [phone] [id number] CASI DELEON Self - patient is the insured
--- OUTSIDE RECORDS SUMMARY | 2024-12-06 10:02 | XMS_ITS | Clinical Summary ---
Author Organization [facility] Care Team Providers Care Heel Builder Name Role Phone Unavailable Primary Care Provider Unavailabl e Social History Tobacco Use Types Packs/Day Years Used Date Smoking Tobacco: Never Assessed Comments Unknown Sex and Gender Information Value Date Recorded Sex Assigned at Not on file Legal Sex Female 11:17 PM CDT Gender Identity Not on file Sexual Orientation Not on file Plan of Treatment Health Maintenance Due Date Last Done Comments Hepatitis C Virus (HCV) Screening 1955 TdaP Immunization 1955 Cologuard 05/15/1999 Colonoscopy 05/15/1999 Colorectal Cancer Screening 05/15/1999 Immunochemical Fecal Occult Blood 05/15/1999 Pneumococcal Immunization (5 0+ years) (1 of 1 - PCV) 2004 Zoster Immunization (1 of 2) 2004 Influenza Immunization (#1) 2024 SARS-COV-2 Immunization ( - season) 2024 Respiratory Syncytial Virus (RSV) Immunization (Adult) (1 - 1-dose 75+ series) 2029 Hepatitis B Immunization Aged Out No longer eligible based on patient's age to complete this topic Human Papillomavirus (HPV) Immunization Aged Out No longer eligible b ased on patient's age to complete this topic Meningococcal Immunization (ACWY) Aged Out No longer eligible based on patient's age to complete this topic Rotavirus Immunization Aged Out No lo nger eligible based on patient's age to complete this topic
--- OUTSIDE RECORDS SUMMARY | 2024-12-06 10:03 | XMS_ITS | Data Portability ---
Author Organization [place] - [facility] [employer], Main Office Address [address] [place] [address] Care Team Providers Care Director Medical Economics Name Role Phone ALEKSANDER VILLANUEVA Primary Care Provider [phone] ALEKSANDER VILLANUEVA Referring Provider [phone] Assessment Encounter Date Assessment Date Assessment LastModified by Organization Details LastModified Time 04/19/2024 04/19/2024 This note is dictated and transcribed by [employer]. Soft Shoe Dancer variances may occur. Despite proofreading, typographical errors may occur. Occasional wrong-word or 'zhhdk-g-ooai' substitutions may have occurred due to the inherent limitations of voice recording. Read the chart carefully and recognize, using context, where substitutions have occurred. Not available 04/19/2024 12:00:51 07/23/2024 07/23/2024 This note is dictated and transcribed by [employer]. Soft Shoe Dancer variances may occur. Despite proofreading, typographical errors may occur. Occasional wrong-word or 'ycmyw-n-tmyr' substitutions may have occurred due to the inherent limitations of voice recording. Read the chart carefully and recognize, using context, where substitutions have occurred. Not available 07/24/2024 15:39:38 Plan of Treatment Reminders Order Date Submit Date Provider Last Modified By Organization Details Last Modified Time Details Appointments None recorded. Lab vitamin D, 25-hydroxy, total, serum [email or web address] [place] [address] (Lab), [address] [place] [address] [address], [place], [address], 3 12:43:40 HbA1c (hemoglobin A1c), blood [email or web address] [place] [address] (Lab), [address] [place] [address], [address], 3 12:43:39 BMP, serum or plasma 2022 023 [email or web address] [address] [place] [address] (Lab), [address] [place] [address], [address], 3 12:43:39 CBC w/ auto diff [email or web address] [place] [address] (Lab), [address] [place] [address], [address], 3 12:43:39 hepatic function panel, serum [address] (Lab), [address] [place] [address], [address], 3 12:43:40 lipid panel, serum [address] [place] [address] (Lab), [address] [place] [address], [address], 3 12:43:40 noninvasive colorectal cancer DNA + occult blood screening, QL, stool 2022 023 [email or web address], [address], [address], [place], [address], 4 14:59:43 urinalysis complete, reflex culture [address] (Lab), [address] [place] [address], [address], 3 12:43:39 T4, free, serum [address] (Lab), [address] [place] [address], [address], 3 12:43:39 TSH, serum or plasma 2022 023 [facility] (Lab), [address], [place], [address], 3 14:26:[address] technician referral 2022 023 [facility] Nico Bowling DPM, [address], [place], [address], 3 05:01:27 Procedures None recorded. Surgeries None recorded. Imaging MAMMO, screening, digital, bilateral 2022 023 [facility] (Mammography) , [address], [place], [address], 3 16:28:21 Medication Orders loratadine 10 mg tablet 2022 023 [id number], [address], [place], [phone], 3 17:48:17 Patient TargetsNo targets recorded. Patient InstructionsNo instructions recorded. 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 [id number] Not Available 04/07/2022 05:21:49 12/17/19 21 11/20/2020 CT, abdom en + pelvi s, w/ contr ast No observ ation record ed. MIGRATION. [facility] (Imaging) [address] [place] [address] [facility] [place], [address], 04/07/2022 05:21:49 12/18/19 21 11/23/2020 CT, angio gram, chest , w/ contr ast No observ ation record ed. MIGRATION. [address] [place] [address], [place], [address], 04/07/2022 05:21:49 12/18/19 21 11/23/2020 XR, chest , 2 view No observ ation record ed. MIGRATION. [address] [place] [address] (Imaging) [address] [place] [address], [place], [address], 04/07/2022 05:21:49 04/15/19 22 04/12/2021 XR, chest No observ ation record ed. MIGRATION. [address] [place] [address] (Imaging) [address] [place] [address], [place], [address], 04/07/2022 05:21:49 04/18/19 22 03/26/2021 US, doppl er, venou s No observ ation record ed. MIGRATION. Not Available 04/07/2022 05:21:49 04/28/19 22 04/27/2021 MAMMO , scree barbara, digit al, bilat eral No observ ation record ed. MIGRATION. Not Available 04/07/2022 05:21:49 06/23/19 22 06/22/2021 CT, abdom en + pelvi s, w/ contr ast No observ ation record ed. MIGRATION. [address] [place] [address], [place], [address], 04/07/2022 05:21:49 10/30/19 22 10/19/2021 US, doppl er, venou s No observ ation record ed. MIGRATION. [address] [place] [address], [place], [address], 04/07/2022 05:21:49 12/17/19 22 12/15/2021 XR, chest No observ ation record ed. [id number] [facility] (Human Resources) [address], [place], [address], 04/07/2022 05:21:49 07/31/19 23 07/29/2022 MAMMO , scree barbara, digit al, bilat eral No observ ation record ed. [email or web address] [facility] [address], [place], [address], 10/26/2022 18:26:57 12/10/1909/15/2022 XR, foot No observ ation record ed. [email or web address] [facility] [address], [place], [address], 12/13/2022 17:13:24 Result Notes None recorded. Problems Name Problem SNOMED Code Status Onset Date Resolution Date Notes Provider Name and Address Organization Details Recorded Time Bipolar disorder 47623436 Active Not Available [facility] 3 05:13:46 Blood glucose outside reference range 623557598 Active Not Available [facility] 3 05:13:46 Chronic urinary tract infection 418236773 Active Not Available [facility] 3 05:13:46 Pain of joint of elbow 326858081 Active Not Available [facility] 3 05:13:46 Anemia 922242852 Active Not Available [facility] 3 05:13:46 Eruption 877273454 Active Not Available [facility] 3 05:13:46 Vaginal lesion 426779652 Active Not Available [facility] 3 05:13:46 Otitis externa 5474414 Active Not Available [facility] 3 05:13:46 Pain in left knee Active Not Available [facility] 3 05:13:47 Major depressive disorder 637293100 Active Not Available [facility] 3 05:13:47 Impairment of balance 519080746 Active Not Available [facility] 3 05:13:47 Hypothyroi dism 01297150 Active Not Available [facility] 3 05:13:47 Pain of hip region 29090250 Active Not Available [facility] 3 05:13:47 Osteoporos is 84242011 Active Not Available [facility] 3 05:13:47 Fatigue 68100014 Active Not Available [facility] 3 05:13:47 Facial paresthesi a 05564868 Active Not Available [facility] 3 05:13:47 Wheezing 42594073 Active 2018 Not Available [facility] 3 05:13:47 Trimalleol ar fracture 637671049 Active 2018 Not Available [facility] 3 05:13:46 Trimalleol ar fracture 434601048 Active 2018 Not Available [facility] 3 05:13:46 Impacted cerumen of bilateral ears 9429551735573 108 Active 2021 Not Available [facility] 3 05:13:46 Long-term drug therapy Active 2021 Not Available [facility] 3 05:13:46 Cholestero l screening Active 2021 Not Available [facility] 3 05:13:46 Lower urinary tract symptoms 905685412 Active 2021 Not Available [facility] 3 05:13:46 Otitis media 02537724 Active 2021 Not Available [facility] 3 05:13:47 Asthma 249618729 Active 2022 JESSICA Allen [address], [place] [address], [place], [address] , [employer] 3 13:09:04 Hyperlipid emia 74278554 Active 2022 JESSICA Allen [address], [address], [place], [address] , [employer] [facility] [employer] 3 15:24:04 Seasonal allergic rhinitis 069673168 Active 2022 JESSICA Allen [address], [address], [place], [address] , [employer] 3 17:47:52 Acute urinary tract infection 257895000 Active 2022 JESSICA Allen [address], [address], [place], [address] , [employer] 3 16:06:55 Dystrophia unguium 98094080 Active 2024 Nico Bowling DPM [address], [address], [place], [address] , [employer] 5 13:57:56 Bunion 380886299 Active 2024 Nico Bowling DPM [address], [address], [place], [address] , [employer] 5 13:57:59 Hammer toe 013449961 Active 2024 Nico Bowling DPM [address], [address], [place], [address] , [employer] 5 13:58:28 Pain in toe 602467315 Active 2024 Nico Bowling DPM [address], [address], [place], [address] , [employer] 13:58:41 Problem Notes None recorded. Procedures Surgical History Date Name Laterality Status Provider Name and Address Organization Details Recorded Time 07/24/19 25 Nail Debridement completed Nico Bowling DPM [address], [address], [place], [address], [employer] 07/24/2024 15:39:20 04/20/19 25 Nail Debridement completed Nico Bowling DPM [address], [address], [place], [address], [employer] 04/19/2024 13:57:27 04/09/19 20 Most Recent Bone Density completed Not Available [facility] 04/07/2022 05:05:19 Tubal Ligation completed Not Available [facility] 04/07/2022 05:05:22 Cholecystectomy completed Not Available [facility] 04/07/2022 05:05:22 Orthopedic Surgery completed Not Available [facility] 04/07/2022 05:05:22 Imaging Results None recorded. Procedure Notes None recorded. Medical Equipment None Reported. Allergies Allergen ID Allergen Name Allergen Category Reaction Reaction Severity Criticality Documentation Date Start Date Code Code System Note Provider Name and Address Organization Details Recorded Time 71038 Cipro medicatio n Not available Not available Not available 04/19/2024 08554 3 [facility] 5 12:21:41 75283 Levaquin medicatio n Not available Not available Not available 04/19/2024 81653 2 RxNorm Melinda vicente, [facility] 5 12:21:56 9545 sulfameth izole Not available Not available Not available Not available 04/07/2022 64311 RxNorm Not Available [facility] 3 05:21:25 9546 sulfadime thoxine Not available Not available Not available Not available 04/07/2022 98149 RxNorm Not Available [facility] 3 05:21:25 9547 Substance with sulfonami de structure and antibacte rial mechanism of action (substanc e) medicatio n itching moderate Not available 04/07/2022 57209 8003 SNOMED Not Available [facility] 3 05:21:25 9548 Product containin g penicilli n (product) medicatio n fever moderate Not available 04/07/2022 40478 8001 SNOMED Not Available [facility] 3 05:21:25 9549 codeine medicatio n Not available Not available Not available 04/07/2022 2670 RxNorm Not Available [facility] 3 05:21:25 9550 Bactrim medicatio n itching mild Not available 04/07/2022 47498 9 RxNorm Not Available [facility] 3 05:21:25 Medications Name Sig Start Date [...] completed Not Available Not Available Not Available [facility] with Large Mask 05/25 completed [...] Respiratory rate Body temperature Body weight Systolic And Diastolic Provider Name and Address Organization Details Last Updated DateTime 2 30 kg/m2 170.18 cm 97 % 97 % 99 /min 16 /min 97.6 [degF] 42256.3 g 110/70 mm[Hg] Not Available [facility] 3 05:11:19 Date Recorded Body height Body mass index (BMI) Body weight Heart rate Respiratory rate Oxygen saturation Oxygen saturation in Arterial blood by Pulse oximetry Systolic And Diastolic Provider Name and Address Organization Details Last Updated DateTime 5 170.18 cm 31 kg/m2 49585.2 9 g 107 /min 14 /min 98 % 98 % 99/70 mm[Hg] Melinda [facility] 5 11:17:43 Date Recorded Body height Body temperature Body mass index (BMI) Body weight Respiratory rate Oxygen saturation Oxygen saturation in Arterial blood by Pulse oximetry Heart rate Systolic And Diastolic Provider Name and Address Organization Details Last Updated DateTime 3 170.18 cm 97.6 [degF] 31 kg/m2 69024.2 9 g 16 /min 98 % 98 % 104 /min 128/80 mm[Hg] Jelly Aguayo [facility] 3 14:42:15 Date Recorded Body height Body mass index (BMI) Body weight Heart rate Respiratory rate Oxygen saturation Oxygen saturation in Arterial blood by Pulse oximetry Provider Name and Address Organization Details Last Updated DateTime 5 170.18 cm 31 kg/m2 51330.2 9 g 107 /min 14 /min 98 % 98 % Melinda Marin [facility] [employer] 5 16:59:27 Date Recorded Body mass index (BMI) Body height Oxygen saturation Oxygen saturation in Arterial blood by Pulse oximetry Heart rate Body temperature Body weight Systolic And Diastolic Provider Name and Address Organization Details Last Updated DateTime 1 27.8 kg/m2 170.18 cm 96 % 96 % 112 /min 96.2 [degF] 17548 g 120/80 mm[Hg] Not Available [facility] 3 05:11:19 Social History Question Answer Notes LastModified by [employer] ion Details LastModified Time Tobacco Smoking Status Never Smoker Not Available [facility] 04/07/2022 05:04:25 What Is Your Level Of Caffeine Consumption? Occasional [id number] Information not available 04/07/2022 How Much Tobacco Do You Chew? None MIGRATION.[id number] 7973 Information not available 04/07/2022 In The 14 Days Before Symptom Onset, Have You Had Close Contact With A Laboratory-confirm ed COVID-19 While That Case Was Ill? No [id number].[id number] 7767 Information not available 04/07/2022 In The 14 Days Before Symptom Onset, Have You Had Close Contact With A Person Who Is Under Investigation For COVID-19 While That Person Was Ill? No MIGRATION.[id number] 8553 Information not available 04/07/2022 What Type Of Diet Are You Following? REGULAR MIGRATION.[id number] 5778 Information not available 04/07/2022 Which Illicit Or Recreational Drugs Have You Used? None MIGRATION.[id number] 8220 Information not available 04/07/2022 Have There Been Any Changes To Your Family Or Social Situation? No MIGRATION.[id number] 7729 Information not available 04/07/2022 Do You Use Insect Repellent Routinely? No MIGRATION.[id number] 5909 Information not available 04/07/2022 What Was The Date Of Your Most Recent Tobacco Screening? 04/19/2024 Information not available 04/19/2024 What Is Your Relationship Status? Single MIGRATION.[id number] 2987 Information not available 04/07/2022 Do You Use Your Seat Belt Or Car Seat Routinely? Yes MIGRATION.536272 2814 Information not available 04/07/2022 Do You Have Smoke And Carbon Monoxide Detectors In Your Home? Yes MIGRATION.955406 8563 Information not available 04/07/2022 How Much Tobacco Do You Smoke? No MIGRATION.467814 0445 Information not available 04/07/2022 Do You Use Sunscreen Routinely? Yes MIGRATION.930584 4395 Information not available 04/07/2022 Has Tobacco Cessation Counseling Been Provided? No Information not available 04/19/2024 Have You Recently Traveled Abroad? No MIGRATION.692533 1073 Information not available 04/07/2022 Do You Have Difficulty Walking Or Climbing Stairs? No MIGRATION.528815 4674 Information not available 04/07/2022 Do You Have Any Dietary Restrictions? No MIGRATION.271614 2498 Information not available 04/07/2022 Sex: Unknown Functional Status Question Answer Note LastModified by [employer] ion Details LastModified Time Do you use any illicit or recreational drugs? No MIGRATION.999499 0474 Information not available 04/07/2022 Do you or have you ever used any other forms of tobacco or nicotine? No MIGRATION.756554 3904 Information not available 04/07/2022 What is your level of alcohol consumption? None MIGRATION.697997 1307 Information not available 04/07/2022 Do you or have you ever used smokeless tobacco? Never used smokeless tobacco MIGRATION.876838 7258 Information not available 04/07/2022 Are you currently employed? No [email or web address] Information not available 05/24/2022 Do you have transportation difficulties? Yes MIGRATION.735563 6135 Information not available 04/07/2022 Are you able to walk independently without assistance or assistive devices? YESWOREST MIGRATION.565635 4882 Information not available 04/07/2022 Are you able to care for yourself independently? No [email or web address] Information not available 05/24/2022 What is your occupation? unemployed MIGRATION.324028 2452 Information not available 04/07/2022 Do you have difficulty dressing, bathing, grooming, or toileting? No MIGRATION.207406 6496 Information not available 04/07/2022 Do you or have you ever used e-cigarettes or vape? Never used electronic cigarettes MIGRATION.630565 4600 Information not available 04/07/2022 What is your exercise level? None MIGRATION.015175 4743 Information not available 04/07/2022 Mental Status Question Answer Note LastModified by Organization D etails LastModified Time Do you have difficulty concentrating, remembering or making decisions? Yes [email or web address] Information no t available 05/24/2022 Family History Relationship Description Onset Age of this Age Resolved Age Notes LastModified by Organization Details LastModified Time Mother Motor vehicle traffic accident [id number] Not available 04/07/2022 05:05:28 Medical History Condition [...] influenza, unspecified formulation 5 completed Not Available [facility] 04/07/2022 05:21:16 Past Encounters Encounter ID Performer Location Encounter Start Date Encounter Closed Date Diagnosis/Indication Diagnosis SNOMED-CT Code Diagnosis ICD10 Code Diagnosis IMO Codes Diagnosis Note [id number] JESSICA Allen [facility] Internal Med [place] [address] [place] [address], [address] [place] [address] 07/14/2020 00:00:00 08/02/2020 23:47:21 [id number] JESSICA Allen [facility] Internal Med [place] [address] [facility] [address], [address] [place] [address] 07/29/2020 00:00:00 08/05/2020 01:23:05 [id number] JESSICA Allen [facility] Internal Med [place] [address] [facility], [address] [place] [address] 08/27/2020 00:00:00 09/06/2020 08:48:14 [id number] JESSICA Allen [facility] Internal Med [place] [address] [place] [address] 04/01/2021 00:00:00 04/04/2021 19:53:54 [id number] JESSICA Allen [facility] Internal Med [place] [address] [place] [address] 05/25/2022 14:05:06 05/25/2022 15:31:44 Hypothyroidism 50055151 E03.9 stable on supplement . due for labs. Major depr essive disorder 645823496 F32.9 stable on celexa therapy Blood gluc ose outside reference range 242285023 R73.09 due for a1c screening. Asthma 511917275 J45.90 9 stable. on advair Chronic ur inary tract infection 097937819 N39.0 UA w/cx due Long-term drug therapy 580696655 Z79.899 routine bmp, cbc, and LFT due Osteoporosis 89527986 M8 1.0 vit D screening due Hyperlipidemia 30769520 E78.5 fasting lipids are due Screening mammography 24 194559 Z12.31 mammogram due Unable to cut own toenails 216500875 Z74.[address] Seasonal a llergic rhinitis 232751019 J30.2 start loratidine 10mg daily. Screening for malignant neoplasm of colon 923617845 Z12.11 pt would like cologuard testing option. [id number] Nico Bowling DPM [facility] Podiatry [place] [address] [place] [address] 04/19/2024 11:08:22 04/24/2024 09:48:47 Pain in toe 956652328 M79.674 M79.675 secondary to deformitie sRecommend wide supportive shoe gearRecomm end offloading silicone toe sleevesRec ommend monitoring for wounds daily if present seek medical attention immediatel yFollow-up in 3 months for routine foot care Dystrophia unguium 64669 009 L60.3 nails debrided without incident Bunion 260587229 M21.61 9 bilateral worse to the righteduca karena on treatment optionsdoe s not want surgerysho wn conservati ve optionsfol low-up as needed Hammer toe 985202060 M20 .41 M20.42 as above [id number] Nico Bowling DPM [facility] [place] [address] [place] [address] 07/23/2024 16:52:27 07/25/2024 16:12:02 Dystrophia unguium 92586071 L60.3 nails debrided without incident Pain in toe 159055627 M7 9.674 M79.675 secondary to deformitie sRecommend wide supportive shoe gearRecomm end offloading silicone toe sleevesRec ommend monitoring for wounds daily if present seek medical attention immediatel yFollow-up in 3 months for routine foot care Health Concerns Section Related Observation LastModified by Organization Detai ls LastModified Time None Recorded Concern Status LastModified by Organization Details LastModified Time None Recorded Advance Directives Directive None Recorded Payers Insurance Date Sequence Insurance Name Policy Number Policy Oliveira Covered Member ID Oliveira Member ID Guarantor Name 07/20/2024 1 [place] Dakotah L Jernigan [id number] Dakotah L Jernigan 07/20/2024 2 [place] WHEN MEDICARE OR MEDICARE REPLACEMENT PRIMARY) Dakotah L Jernigan [id number] Dakotah L Jernigan 07/20/2024 [place] MED[place] EQUIP[place] Dakotah L Jernigan [id number] Dakotah L Jernigan 07/20/2024 [employer] - DMEPOS ASSIGNED (MEDICARE DME REGION B) Dakotah L Jernigan [id number] Dakotah L Jernigan 04/19/2024 [place] Dakotah L Jernigan [id number] Dakotah L Jernigan 04/19/2024 [employer] - DMEPOS ASSIGNED (MEDICARE DME REGION B) Dakotah L Jernigan [id number] Dakotah L Jernigan 04/19/2024 [place] Dakotah L Jernigan [id number] Dakotah Beauchamp Jernigan 04/19/2024 [employer] - DMEPOS ASSIGNED (MEDICARE DME REGION B) Dakotah Beauchamp Jernigan [id number] Dakotah Ariaser Notes Date Note Type Note Provider Name and Address Organization Details Recorded Time 3 text/html Anxiety/DepressionReported by PatientHPIFor severity, patient reportsdenies suicidal ideations,able to maintain relationships, anddoes not interfere with activities of daily living. For duration, patient reportssymptoms lasting over 2 weeks. For onset/timing, patient reportsstill present. For context, patient reportsno major life stressors. For associated symptoms, patient reportsdenies homicidal ideations,no significant weight gain,no significant weight loss,no visual/auditory hallucinations,no delusions, andno shortness of breath. For quality, (doesnt matter time of day.). For modifying factors, (rx). HypothyroidismReported by PatientHPIFor context/risk, patient reportshistory of hypothyroidismandfemale genderbut reportsnormal thyroid levels,no history of head or neck radiation during childhood,no history of thyroid disease,no history of hypothyroidism,no history of hyperthyroidism, andno excess iron exposure. For quality, patient reportsnot changing. For duration, patient reportsconstant. For onset/timing, patient reportsstill present. For modifying factors, patient reportsmedication. For exercise, patient reportsgets exercise. For associated symptoms, patient reportsno cold intolerance,no heat intolerance,no weight loss,no weight gain,no double vision,no dry eyes,no hoarseness,no difficulty swallowing,no neck masses,no deepening of the voice,no fast heart rate,no increased blood pressure,no palpitations,no chest pain,no chest tightess or pressure,no constipation,no diarrhea,no vomiting,no decreased appetite,no loose stools,no irregular menstrual periods,no excessive sweating,no joint pain,no numbness,no tingling of the hands or feet,no dry skin,no tremor,no nervousness,no anxiety,no depression,no fatigue,no sleep difficulties,no skin changes, andno hair changes. JESSICA Allen [address] [facility], [place] [address], [place], [address], [employer] [facility] 06/04/2022 13:50:05 5 text/html Patient presents the office with complaints of pain to her right 4th toe. Patient has had previous surgeries to the right foot x2 with no success in treatment of her lesser toes. Patient due to this has crowding of the toes with a painful right 4th proximal interphalangeal joint due to hammering and a dislocated 1st MPJ bunion deformity. Nico Bowling DPM [address], [facility] [address], [place], [address], [place] 04/19/2024 13:59:42 5 text/html . Patient is a 69-year-old female she returns to the office for complaints of elongated toenails. Patient is unable to cut her nails. Patient denies any other complaints. Nico Bowling DPM [address] [facility] [address], [place], [address], [place] 07/24/2024 15:39:56 OBGyn Episode No OBEpisode recorded.
== END 2024-12-06 09:22 | disposition home or self-care (01) ==
PROVIDERS: PCP Physician Assistant; Visit Provider Physician Assistant
DX: K44.9 Diaphragmatic hernia without obstruction or gangrene (principal)
CPT/HCPCS: 74246

== ENCOUNTER 2025-01-21 15:46 | Emergency (ER) | payer MEDICARE, MEDICAID, SELFPAY ==
--- OUTSIDE RECORDS SUMMARY | 2023-09-06 11:00 | XMS_ITS ---
Author Organization [facility] Address [address] [place] [address] Phone [phone] Care Team Providers Care Fowl Blood Tester Name Role Phone Janet HICKEY, Jewel Primary Care Provider [phone] [facility] Unav ailable Unavailable REASON FOR VISIT Psych F/U Social History Sex Observation Social History Observation Description Sex Observation Female Sexual Orientation Social History Observation Description Sexual Orientation Straight or heterose xual Gender Identity Social History Observation Description Gender Identity Female Encounters Date Time Type Facility Location Provider Diagnosis 09/06/2023 11:00 AM Office Visit [place] [address] [address] Jewel oGnzales Plan Of Treatment Next Appt Details Provider Name:Jewel Gonzales, 10:00:00 AM, [facility] [address], [place], [address], Medical (General) History Medical History History ICD [...] * Sherwin JERNIGANiDOB:1955 ( 69 yo F)Acc No.[id number]:09/06/2023 UNLOCKED PROGRESS NOTE Patient: Dakotah DENG Provider: Padilla Gonzales :1955 A ge:68 Y S ex:Female Date:09/06/2023 Address:[address] [place] [address], [address] Subjective: * Chief Complaints: * 1 . Psych F/U. * Screening: * * Medical History: Objective: * Vitals: Assessment: Plan: * Treatment: * * Electronic signature of Jewel Gonzales MD, [id number] on 01/21/2025 at 05:58 PM CANE PACKER Sign off status: Pending * Provider: Padilla Gonzales Date: 0 09/06/2023 Generated for Tony bess/Salvatore/eTpaigesmitting on: 1 03/24/2024 05:58 PM CANE PACKER
--- OUTSIDE RECORDS SUMMARY | 2023-09-30 14:00 | XMS_ITS ---
Author Organization [facility] Address [address] [place] [address] Phone [phone] Care Team Providers Care Holistic Pulser Name Role Phone Janet HICKEY, Jewel Primary Care Provider [facility] Unav ailable Unavailable REASON FOR VISIT 1 Month Psych F/U & Med Refill Social History Sex Observation Social History Observation Description Sex Observation Female Sexual Orientation Social History Observation Description Sexual Orientation Straight or heterose xual Gender Identity Social History Observation Description Gender Identity Female Encounters Date Time Type Facility Location Provider Diagnosis 09/30/2023 02:00 PM Office Visit [facility] [address] [place] [address] Jewel Gonzales Plan Of Treatment Next Appt Details Provider Name:Jewel Gonzales, 10:00:00 AM, [address] [facility] [place], [address], Medical (General) History Medical History History ICD Code COPD Surgical History Surgery Date(Month/Year) Broken ankle surg and Rehab Sep 2018 UTI/Dehydration, hospitalized 2014 Pnuemonia 2013 Bilateral hip replacements 2000 Tubal Ligation 1997 Hospitalization History Reason Date(Month/Year) broken pelvic bone [facility] for exacerbation of COPD A pril 2021 ER visits for blood clots, kidney stones ,asthma attacks [facility] for indigestion and UTI Sep 2020 Progress Notes * Noam JERNIGANB:1955 ( 69 yo F)Acc No.[id number]:09/30/2023 UNLOCKED PROGRESS NOTE Patient: Dakotah DENG Provider: Padilla Gonzales :1955 A ge:68 Y S ex:Female Date:09/30/2023 Address:[address] [place] [address], [address] Subjective: * Chief Complaints: * 1 . 1 Month Psych F/U & Med Refill. * Screening: * * Medical History: Objective: * Vitals: Assessment: Plan: * Treatment: * * Electronic signature of Jewel Gonzales MD, [id number] on 01/21/2025 at 05:59 PM HAND ETCHER HELPER Sign off status: Pending * Provider: Padilla Gonzales Date: 0 09/30/2023 Generated for Tony bess/Salvatore/eTpaigesmitting on: 1 03/24/2024 05:59 PM HAND ETCHER HELPER
[2025-01-21] VITALS (7 sets, daily range): BP systolic 109–122; BP diastolic 59–73; PULSE 63–78; RESP 14–20; TEMP 36.9; O2SAT 94–100
--- NOTE | ~2025-01-21 | XR_ITS ---
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 Technique: 2 views obtained. Findings: The lungs are clear, no effusion. No pneumothorax. Heart is normal size. Mediastinal and hilar contours are within normal limits. Bony thorax no acute abnormality. Impression: No acute cardiopulmonary abnormality. Reviewed, dictated and finalized at location P. L LAYOUT WORKER Impression: No acute cardiopulmonary abnormality.
--- NOTE | 2025-01-21 17:50 | ECG_ITS ---
Test Date: 2025-01-21 18:25:30 Measurements Intervals K[place]m Rate: 65 P: 0 OR: 0 QRS: 15 QRSD: 93 T: 1 QT: 370 QTc: 385 Interpretive Statements SINUS RHYTHM LOW QRS VOLTAGE IN PRECORDIAL LEADS BORDERLINE T WAVE ABNORMALITY- ANT/INF LEADS BASELINE ARTIFACT- I, II, III, AVR, AVL, AVF, V1-V6 BORDERLINE ECG Compared to ECG 07/07/2024 21:28:21 NO SIGNIFICANT CHANGE Electronically Signed On 01-21-2025 19:54:02 [employer] TILE FLOOR LAYER by Mat Munoz D.O.
--- OUTSIDE RECORDS SUMMARY | 2025-01-21 17:59 | XMS_ITS | Clinical Summary ---
Author Organization [facility] Care Team Providers Care Cad Engineer Name Role Phone Unavailable Primary Care Provider [...]
--- OUTSIDE RECORDS SUMMARY | 2025-01-21 17:59 | XMS_ITS | Clinical Summary ---
Author Organization [facility] Address [address] [place] [id number] Care Team Providers Care Taxonomist Name Role Phone Elena Payton Primary Care Provider [phone] Robbin Rodgers MD Unavailable Allergies Active Allergy [...] Comments Blood Pressure 104/69 01/06/2017 8:32 AM TAR MAN Pulse 81 01/06/2017 8:32 AM TAR MAN Temperature - - Respiratory Rate - - Oxygen Saturation - - Inhaled Oxygen Concentration - - Weight 69.9 kg (154 lb) 01/06/2017 8:32 AM TAR MAN Height 170.2 cm (5' 7) 01/06/2017 8:32 AM TAR MAN Body Mass Index 24.12 01/06/2017 8:32 AM TAR MAN Plan of Treatment Health Maintenance Due Date [...] this topic Insurance MEDICAID MEDICARE Care Teams Taxonomist Relationship Specialty Start Date End Date Elena Payton PA PCP - General 12/28/16 Robbin Rodgers MD [id number] [place] [address] Referring Physician VASCULAR SURGERY 12/28/16
--- OUTSIDE RECORDS SUMMARY | 2025-01-21 17:59 | XMS_ITS | Data Portability ---
Author Organization [place] - [facility] [employer], Main Office Address [address] [place] [address] Care Team Providers Care Cannoneer Name Role Phone ELENA VILLANUEVA Primary Care Provider [phone] ELENA VILLANUEVA Referring Provider [phone] Assessment Encounter Date Assessment Date Assessment LastModified by Organization Details LastModified Time 04/19/2024 04/19/2024 This note is dictated and transcribed by [employer]. Nurse School variances may occur. Despite proofreading, typographical errors may occur. Occasional wrong-word or 'szuwx-x-piwf' substitutions may have occurred due to the inherent limitations of voice recording. Read the chart carefully and recognize, using context, where substitutions have occurred. Not available 04/19/2024 12:00:51 07/23/2024 07/23/2024 This note is dictated and transcribed by [employer]. Nurse School variances may occur. Despite proofreading, typographical errors may occur. Occasional wrong-word or 'urhpv-y-crro' substitutions may have occurred due to the inherent limitations of voice recording. Read the chart carefully and recognize, using context, where substitutions have occurred. Not available 07/24/2024 15:39:38 Plan of Treatment Reminders Order Date Submit Date Provider Last Modified By Organization Details Last Modified Time Details Appointments None recorded. Lab vitamin D, 25-hydroxy, total, serum [email or web address] [place] [address] (Lab), [address] [place] [address] [address], [place], [address], 3 12:43:40 HbA1c (hemoglobin A1c), blood [email or web address] [place] [address] (Lab), [address] [place] [address], [address], 3 12:43:39 BMP, serum or plasma 2022 023 [email or web address] [address] [place] [address] (Lab), [address] [place] [address], [address], 3 12:43:39 CBC w/ auto diff 2022 [address] [facility] [place] [address] (Lab), [address] [place] [address], [address], 3 12:43:39 hepatic function panel, serum [address] (Lab), [address] [place] [address], [address], 3 12:43:40 lipid panel, serum [address] [facility] [address] [place] [address] (Lab), [address] [place] [address], [address], 3 12:43:40 noninvasive colorectal cancer DNA + occult blood screening, QL, stool 2022 023 [facility], [address], [address], [place], [address], 4 14:59:43 urinalysis complete, reflex culture [address] (Lab), [address] [place] [address], [address], 3 12:43:39 T4, free, serum [address] (Lab), [address] [place] [address], [address], 3 12:43:39 TSH, serum or plasma 2022 023 [facility] (Lab), [address], [place], [address], 3 14:26:30 Referral chain tender referral 2022 023 [place] Nico Bowling DPM, [address], [address], [place], [address], 3 05:01:27 Procedures None recorded. Surgeries None recorded. Imaging MAMMO, screening, digital, bilateral 2022 023 [facility] (Mammography) , [address], [place], [address], 3 16:28:21 Medication Orders loratadine 10 mg tablet 2022 023 [place] [id number], [address], [place], [place], [id number], 3 17:48:17 Patient TargetsNo targets recorded. Patient InstructionsNo instructions recorded. Reason for Referral Process Validation Engineer Referral for Unab le to cut own toenails Referring Physician: Elena Villanueva, Internal Medicine, Encounter Date: 05/25/2022 Results Created Date Observation Date Name Description Value Unit Range Abnormal Flag Note LastModifiedBy Organization Detail LastModifiedTime 05/25/19 24 05/25/2023 COLOG UARD cologuard result Cancel led - Order d not applic able Not Available [facility] [address], [place], [address], 05/25/2023 10:58:55 08/28/19 21 08/27/2020 US, doppl er, venou s No observ ation record ed. [id number] Not Available 04/07/2022 05:21:49 12/17/19 21 11/20/2020 CT, abdom en + pelvi s, w/ contr ast No observ ation record ed. MIGRATION. [facility] (Imaging) [address] [place] [address] [facility], [place], [address], 04/07/2022 05:21:49 12/18/19 21 11/23/2020 CT, angio gram, chest , w/ contr ast No observ ation record ed. MIGRATION. [address] [place] [address], [place], [address], 04/07/2022 05:21:49 12/18/19 21 11/23/2020 XR, chest , 2 view No observ ation record ed. MIGRATION. [address] [place] [address] (Imaging) [address] [place] [address], [place], [address], 04/07/2022 05:21:49 04/15/19 22 04/12/2021 XR, chest No observ ation record ed. MIGRATION. [address] [place] [address] (Imaging) [address] [place] [address], [place], [address], 04/07/2022 05:21:49 04/18/19 22 03/26/2021 US, doppl er, venou s No observ ation record ed. MIGRATION. Not Available 04/07/2022 05:21:49 04/28/19 22 04/27/2021 MAMMO , scree barbara, digit al, bilat eral No observ ation record ed. MIGRATION. Not Available 04/07/2022 05:21:49 06/23/19 22 06/22/2021 CT, abdom en + pelvi s, w/ contr ast No observ ation record ed. MIGRATION. [address] [place] [address], [place], [address], 04/07/2022 05:21:49 10/30/19 22 10/19/2021 US, doppl er, venou s No observ ation record ed. MIGRATION. [address] [place] [address], [place], [address], 04/07/2022 05:21:49 12/17/19 22 12/15/2021 XR, chest No observ ation record ed. [id number] [facility] (Human Resources) [address], [place], [address], 04/07/2022 05:21:49 07/31/19 23 07/29/2022 MAMMO , scree barbara, digit al, bilat eral No observ ation record ed. [email or web address] [facility] [address], [place], [address], 10/26/2022 18:26:57 12/10/1909/15/2022 XR, foot No observ ation record ed. [email or web address] [facility] [address], [place], [address], 12/13/2022 17:13:24 Result Notes None recorded. Problems Name Problem SNOMED Code Status Onset Date Resolution Date Notes Provider Name and Address Organization Details Recorded Time Bipolar disorder 55417551 Active Not Available [facility] 3 05:13:46 Blood glucose outside reference range 097167554 Active Not Available [facility] 3 05:13:46 Chronic urinary tract infection 389691252 Active Not Available [facility] 3 05:13:46 Pain of joint of elbow 636717033 Active Not Available [facility] 3 05:13:46 Anemia 643970703 Active Not Available [facility] 3 05:13:46 Eruption 628184525 Active Not Available [facility] 3 05:13:46 Vaginal lesion 276651572 Active Not Available [facility] 3 05:13:46 Otitis externa 3773168 Active Not Available [facility] 3 05:13:46 Pain in left knee Active Not Available [facility] 3 05:13:47 Major depressive disorder 052966949 Active Not Available [facility] 3 05:13:47 Impairment of balance 030246443 Active Not Available [facility] 3 05:13:47 Hypothyroi dism 11985610 Active Not Available [facility] 3 05:13:47 Pain of hip region 98127674 Active Not Available [facility] 3 05:13:47 Osteoporos is 97617034 Active Not Available [facility] 3 05:13:47 Fatigue 59761913 Active Not Available [facility] 3 05:13:47 Facial paresthesi a 79079959 Active Not Available [facility] 3 05:13:47 Wheezing 57358173 Active 2018 Not Available [facility] 3 05:13:47 Trimalleol ar fracture 801061592 Active 2018 Not Available [facility] 3 05:13:46 Trimalleol ar fracture 218796548 Active 2018 Not Available [facility] 3 05:13:46 Impacted cerumen of bilateral ears 8688182529913 108 Active 2021 Not Available [facility] 3 05:13:46 Long-term drug therapy Active 2021 Not Available [facility] 3 05:13:46 Cholestero l screening Active 2021 Not Available [facility] 3 05:13:46 Lower urinary tract symptoms 288548659 Active 2021 Not Available [facility] 3 05:13:46 Otitis media 21774366 Active 2021 Not Available [facility] 3 05:13:47 Asthma 466637140 Active 2022 JESSICA Allen [address], [place] [address], [place], [address] , [employer] 3 13:09:04 Hyperlipid emia 43760148 Active 2022 JESSICA Allen [address], [address], [place], [address] , [employer] [facility] [employer] 3 15:24:04 Seasonal allergic rhinitis 883354258 Active 2022 JESSICA Allen [address], [address], [place], [address] , [employer] 3 17:47:52 Acute urinary tract infection 632863139 Active 2022 JESSICA Allen [address], [address], [place], [address] , [employer] 3 16:06:55 Dystrophia unguium 71825869 Active 2024 Nico Bowling DPM [address], [address], [place], [address] , [employer] [facility] 5 13:57:56 Bunion 524607699 Active 2024 Nico Bowling DPM [address], [address], [place], [address] , [employer] 5 13:57:59 Hammer toe 720930412 Active 2024 Nico Bowling DPM [address], [address], [place], [address] , [employer] [facility] 5 13:58:28 Pain in toe 284609349 Active 2024 Nico Bowling DPM [address], [address], [place], [address] , [employer] 13:58:41 Problem Notes None recorded. Procedures Surgical History Date Name Laterality Status Provider Name and Address Organization Details Recorded Time 07/24/19 25 Nail Debridement completed Nico Bowling DPM [address], [address], [place], [address], [employer] 07/24/2024 15:39:20 04/20/19 25 Nail Debridement completed Nico Bowling DPM [address], [address], [place], [address], [employer] 04/19/2024 13:57:27 04/09/19 20 Most Recent Bone Density completed Not Available [facility] 04/07/2022 05:05:19 Tubal Ligation completed Not Available [facility] 04/07/2022 05:05:22 Cholecystectomy completed Not Available [facility] 04/07/2022 05:05:22 Orthopedic Surgery completed Not Available [facility] 04/07/2022 05:05:22 Imaging Results None recorded. Procedure Notes None recorded. Medical Equipment None Reported. Allergies Allergen ID Allergen Name Allergen Category Reaction Reaction Severity Criticality Documentation Date Start Date Code Code System Note Provider Name and Address Organization Details Recorded Time 61412 Cipro medicatio n Not available Not available Not available 04/19/2024 25339 3 [facility] 5 12:21:41 88023 Levaquin medicatio n Not available Not available Not available 04/19/2024 53526 2 RxNorm Melinda vicente, [facility] 5 12:21:56 9545 sulfameth izole Not available Not available Not available Not available 04/07/2022 77431 RxNorm Not Available [facility] 3 05:21:25 9546 sulfadime thoxine Not available Not available Not available Not available 04/07/2022 86978 RxNorm Not Available [facility] 3 05:21:25 9547 Substance with sulfonami de structure and antibacte rial mechanism of action (substanc e) medicatio n itching moderate Not available 04/07/2022 25802 8003 SNOMED Not Available [facility] 3 05:21:25 9548 Product containin g penicilli n (product) medicatio n fever moderate Not available 04/07/2022 68964 8001 SNOMED Not Available [facility] 3 05:21:25 9549 codeine medicatio n Not available Not available Not available 04/07/2022 2670 RxNorm Not Available [facility] 3 05:21:25 9550 Bactrim medicatio n itching mild Not available 04/07/2022 59773 9 RxNorm Not Available [facility] 3 05:21:25 Medications Name Sig Start Date [...] completed Not Available Not Available Not Available [facility] with Large Mask 05/25 [...] mass index (BMI) Body height Oxygen saturation Heart rate Respiratory rate Body temperature Body weight Systolic And Diastolic Provider Name and Address Organization Details Last Updated DateTime 2 30 kg/m2 170.18 cm 97 % 99 /min 16 /min 97.6 [degF] 26185.3 g 110/70 mm[Hg] Not Available [facility] 3 05:11:19 Date Recorded Body height Body mass index (BMI) Body weight Heart rate Respiratory rate Oxygen saturation Systolic And Diastolic Provider Name and Address Organization Details Last Updated DateTime 5 170.18 cm 31 kg/m2 97734.2 9 g 107 /min 14 /min 98 % 99/70 mm[Hg] Melinda Marin ND [employer] [facility] [employer] 5 11:17:43 Date Recorded Body height Body temperature Body mass index (BMI) Body weight Respiratory rate Oxygen saturation Heart rate Systolic And Diastolic Provider Name and Address Organization Details Last Updated DateTime 3 170.18 cm 97.6 [degF] 31 kg/m2 93879.2 9 g 16 /min 98 % 104 /min 128/80 mm[Hg] EDWARD Valles [facility] [employer] [facility] 3 14:42:15 Date Recorded Body height Body mass index (BMI) Body weight Heart rate Respiratory rate Oxygen saturation Provider Name and Address Organization Details Last Updated DateTime 5 170.18 cm 31 kg/m2 23296.2 9 g 107 /min 14 /min 98 % Melinda [facility] 5 16:59:27 Date Recorded Body mass index (BMI) Body height Oxygen saturation Heart rate Body temperature Body weight Systolic And Diastolic Provider Name and Address Organization Details Last Updated DateTime 1 27.8 kg/m2 170.18 cm 96 % 112 /min 96.2 [degF] 42191 g 120/80 mm[Hg] Not Available [facility] 3 05:11:19 Social History Question Answer Notes LastModified by Organizat ion Details LastModified Time Tobacco Smoking Status Never Smoker Not Available [facility] 04/07/2022 05:04:25 What Is Your Level Of Caffeine Consumption? Occasional [id number] Information not available 04/07/2022 How Much Tobacco Do You Chew? None [id number] [id number] Information not available 04/07/2022 In The 14 Days Before Symptom Onset, Have You Had Close Contact With A Laboratory-confirm ed COVID-19 While That Case Was Ill? No [id number] 3738 Information not available 04/07/2022 In The 14 Days Before Symptom Onset, Have You Had Close Contact With A Person Who Is Under Investigation For COVID-19 While That Person Was Ill? No MIGRATION.[id number] 5463 Information not available 04/07/2022 What Type Of Diet Are You Following? REGULAR [id number] Information not available 04/07/2022 Which Illicit Or Recreational Drugs Have You Used? None MIGRATION.[id number] 2582 Information not available 04/07/2022 Have There Been Any Changes To Your Family Or Social Situation? No MIGRATION.[id number] 5862 Information not available 04/07/2022 Do You Use Insect Repellent Routinely? No MIGRATION.[id number] 9150 Information not available 04/07/2022 What Was The Date Of Your Most Recent Tobacco Screening? 04/19/2024 Information not available 04/19/2024 What Is Your Relationship Status? Single [id number].[id number] 9290 Information not available 04/07/2022 Do You Use Your Seat Belt Or Car Seat Routinely? Yes [id number].[id number] 4624 Information not available 04/07/2022 Do You Have Smoke And Carbon Monoxide Detectors In Your Home? Yes MIGRATION.[id number] 7028 Information not available 04/07/2022 How Much Tobacco Do You Smoke? No MIGRATION.427041 3065 Information not available 04/07/2022 Do You Use Sunscreen Routinely? Yes MIGRATION.132775 8693 Information not available 04/07/2022 Has Tobacco Cessation Counseling Been Provided? No Information not available 04/19/2024 Have You Recently Traveled Abroad? No MIGRATION.[id number] 5327 Information not available 04/07/2022 Do You Have Difficulty Walking Or Climbing Stairs? No MIGRATION.470142 4268 Information not available 04/07/2022 Do You Have Any Dietary Restrictions? No MIGRATION.217362 2855 Information not available 04/07/2022 Sex: Unknown Functional Status Question Answer Note LastModified by [employer] Details LastModified Time Do you use any illicit or recreational drugs? No MIGRATION.475798 3056 Information not available 04/07/2022 Do you or have you ever used any other forms of tobacco or nicotine? No MIGRATION.541316 2990 Information not available 04/07/2022 What is your level of alcohol consumption? None MIGRATION.108557 0158 Information not available 04/07/2022 Do you or have you ever used smokeless tobacco? Never used smokeless tobacco MIGRATION.970893 7790 Information not available 04/07/2022 Are you currently employed? No [email or web address] Information not available 05/24/2022 Do you have transportation difficulties? Yes MIGRATION.493728 5557 Information not available 04/07/2022 Are you able to walk independently without assistance or assistive devices? YESWOREST MIGRATION.391300 3249 Information not available 04/07/2022 Are you able to care for yourself independently? No [email or web address] Information not available 05/24/2022 What is your occupation? unemployed MIGRATION.475902 3967 Information not available 04/07/2022 Do you have difficulty dressing, bathing, grooming, or toileting? No MIGRATION.382234 7116 Information not available 04/07/2022 Do you or have you ever used e-cigarettes or vape? Never used electronic cigarettes MIGRATION.845765 2308 Information not available 04/07/2022 What is your exercise level? None MIGRATION.489440 8094 Information not available 04/07/2022 Mental Status Question Answer Note LastModified by Organization D etails LastModified Time Do you have difficulty concentrating, remembering or making decisions? Yes [email or web address] Information no t available 05/24/2022 Family History Relationship Description Onset Age of this Age Resolved Age Notes LastModified by Organization Details LastModified Time Mother Motor vehicle traffic accident [id number] Not available 04/07/2022 05:05:28 Medical History Condition Response ANXIETY DISORDER Y ASTHMA Y HYPOTHYROIDISM Y BRONCHITIS Y OSTEOPOROSIS Y URINARY/BLADDER/KIDNEY PROBLEMS Y BOWEL PROBLEMS Y LUNG DISEASE/DISORDER Y DEPRESSION (INCLUDING POST ) Y HEARTBURN / REFLUX Y Gynecological History Statement/Question Response Date of Last Mammogram 04/27/2021 Current Control Method Tubal Ligat ion Most Recent Bone Density 04/09/2019 Obstetrics History GPAL:G 0 P 0 0 0 0 Immunizations Vaccine Type Date Status Note Provider Nam e and Address Organization Details Recorded Time influenza, unspecified formulation 5 completed Not Available [facility] 04/07/2022 05:21:16 Past Encounters Encounter ID Performer Location Encounter Start Date Encounter Closed Date Diagnosis/Indication Diagnosis SNOMED-CT Code Diagnosis ICD10 Code Diagnosis IMO Codes Diagnosis Note [id number] JESSICA Allen [facility] [place] [address] [place] [address] 07/14/2020 00:00:00 08/02/2020 23:47:21 [id number] JESSICA Allen [facility] [place] [address] [place] [address] 07/29/2020 00:00:00 08/05/2020 01:23:05 [id number] JESSICA Allen [facility] [place] [address] [place] [address] 08/27/2020 00:00:00 09/06/2020 08:48:14 [id number] JESSICA Allen [facility] [place] [address] [place] [address] 04/01/2021 00:00:00 04/04/2021 19:53:54 [id number] JESSICA Allen [facility] [facility] [place] [address] [place] [address] 05/25/2022 14:05:06 05/25/2022 15:31:44 Hypothyroidism 23992887 E03.9 stable on supplement . due for labs. Major depr essive disorder 905245302 F32.9 stable on celexa therapy Blood gluc ose outside reference range 162464249 R73.09 due for a1c screening. Asthma 734298141 J45.90 9 stable. on advair Chronic ur inary tract infection 824933443 N39.0 UA w/cx due Long-term drug therapy 973086485 Z79.899 routine bmp, cbc, and LFT due Osteoporosis 93884412 M8 1.0 vit D screening due Hyperlipidemia 17897774 E78.5 fasting lipids are due Screening mammography 24 753983 Z12.31 mammogram due Unable to cut own toenails 269728458 Z74.1 refer to chain tender Seasonal a llergic rhinitis 309271706 J30.2 start loratidine 10mg daily. Screening for malignant neoplasm of colon 249714671 Z12.11 pt would like cologuard testing option. [id number] Nico Bowlign DPM [facility] Podiatry Erin Arriola [address] [place] [address] 04/19/2024 11:08:22 04/24/2024 09:48:47 Pain in toe 597211596 M79.674 M79.675 secondary to deformitie sRecommend wide supportive shoe gearRecomm end offloading silicone toe sleevesRec ommend monitoring for wounds daily if present seek medical attention immediatel yFollow-up in 3 months for routine foot care Dystrophia unguium 58106 009 L60.3 nails debrided without incident Bunion 703388483 M21.61 9 bilateral worse to the righteduca karena on treatment optionsdoe s not want surgerysho wn conservati ve optionsfol low-up as needed Hammer toe 648040720 M20 .41 M20.42 as above [id number] Nico Bowling DPM [facility] Erin Arriola [address] [place] [address] 07/23/2024 16:52:27 07/25/2024 16:12:02 Dystrophia unguium 93962938 L60.3 nails debrided without incident Pain in toe 468966370 M7 9.674 M79.675 secondary to deformitie sRecommend [...] 07/20/2024 1 [place] Dakotah L Jernigan [id number] Dakotah L Jernigan 07/20/2024 2 [place] WHEN MEDICARE OR MEDICARE REPLACEMENT PRIMARY) Dakotah L Jernigan [id number] Dakotah L Jernigan 07/20/2024 [place]QU[place] Dakotah L Jernigan [id number] Dakotah L Jernigan 07/20/2024 [employer] - DMEPOS ASSIGNED (MEDICARE DME REGION B) Dakotah L Jernigan [id number] Dakotah L Jernigan 04/19/2024 [place] Dakotah L Jernigan [id number] Dakotah L Jernigan 04/19/2024 [employer] - DMEPOS ASSIGNED (MEDICARE DME REGION B) Dakotah L Jernigan [id number] Dakotah L Jernigan 04/19/2024 [place] Dakotah L Jernigan [id number] Dakotah L Jernigan 04/19/2024 [employer] - DMEPOS ASSIGNED (MEDICARE DME REGION B) Dakotah L Jernigan [id number] Dakotah Nito Delon Notes Date Note Type Note Provider Name [...] skin changes, andno hair changes. JESSICA Allen [address] [place] [address] [address], [place], [address], [place] [facility] 06/04/2022 13:50:05 5 text/html Patient presents the [...] deformity. Nico Bowling DPM [address], [facility] [address], [place], [address], [employer] 04/19/2024 13:59:42 5 text/html . Patient is a 69-year-old female she returns to the office for complaints of elongated toenails. Patient is unable to cut her nails. Patient denies any other complaints. Nico Bowling DPM [address], [facility] [address], [place], [address], [employer] 07/24/2024 15:39:56 OBGyn Episode No OBEpisode recorded.
--- OUTSIDE RECORDS SUMMARY | 2025-01-21 17:59 | XMS_ITS | Clinical Summary ---
Author Organization [facility] Address [address] [place] [address] Care Team Providers Care Scientist Engineer Name Role Phone Elena Payton Primary Care Provider [phone] Allergies Active Allergy Reactions Criticality Noted Date [...] on file Legal Sex Female 11:43 AM CLIENT SUPPORT ASSOCIATE Gender Identity Not on file Sexual Orientation Not on file Last Filed Vital Signs Vital Sign Reading Time Taken Comments Blood Pressure 106/62 01/18/2017 3:02 PM CLIENT SUPPORT ASSOCIATE Pulse 75 01/18/2017 3:02 PM CLIENT SUPPORT ASSOCIATE Temperature - - Respiratory Rate - - Oxygen Saturation 97% 01/18/2017 3:02 PM CLIENT SUPPORT ASSOCIATE Inhaled Oxygen Concentration - - Weight 69.4 kg (153 lb) 01/18/2017 3:02 PM CLIENT SUPPORT ASSOCIATE Height 171.5 cm (5' 7.5) 01/18/2017 3:02 PM CLIENT SUPPORT ASSOCIATE Body Mass Index 23.61 01/18/2017 3:02 PM CLIENT SUPPORT ASSOCIATE Plan of Treatment Health Maintenance Due [...] MEDICARE PART A AND B Care Teams Scientist Engineer Relationship Specialty Start Date End Date Elena Payton PA PCP - General Physician Police Radio Dispatcher 01/18/17
--- OUTSIDE RECORDS SUMMARY | 2025-01-21 17:59 | XMS_ITS | Patient Health Record ---
Author Organization [facility] Address [address] [place] [address] Phone [phone] Care Team Providers Care Payroll And Benefits Analyst Name Role Phone Jewel Gonzales MD Primary Care Provider [facility] Unav ailable Unavailable Allergies [...] Frequency, Duration) Notes Start Date End Date Diagnosis (ICD Code) Status Benztropine Mesylate 0.5 MG Tablet 1 tablet at bedtime Orally Once a day; Duration: 30 days Bipolar 1 disorder (ICD_10 - F31.9) Active Citalopram Hydrobromide 20 MG Tablet 1 tablet Orally Once a day; Duration: 30 days Bipolar 1 disorder (ICD_10 - F31.9) Active QUEtiapine Fumarate 50 MG Tablet 1 tablet Orally Once a day; Duration: 30 days Bipolar 1 disorder (ICD_10 - F31.9) Active QUEtiapine Fumarate 300 MG Tablet 1 tablet at bedtime Orally Once a day; Duration: 30 day(s) 2 Bipolar 1 disorder (ICD_10 - F31.9) Not-Taking Levothyroxine Sodium 50 MCG Tablet 1 tablet in the morning on an empty stomach Orally Once a day doseage uncertain Active clonazePAM 1 MG Tablet 1 tablet Orally twice a day; Duration: 30 days F41.9 5 Bipolar 1 disorder (ICD_10 - F31.9) Active RisperDAL 2 MG Tablet 1 tablet Orally Once a day; Duration: 30 days Bipolar 1 disorder (ICD_10 - F31.9) Active SEROquel 200 MG Tablet 1 tablet at bedtime Orally Once a day; Duration: 30 days Bipolar 1 disorder (ICD_10 - F31.9) Active Immunizations Status Vaccine Route Administration Date Visit Date Comments Administered FLU VAC NO PRSV 4VAL 6 mo+ IM Intramuscular 12/21/2022 Pt [facility] [place]. Social History Tobacco Use: Social History Observation Description Date Details (start date - stop date) Never Smoker NA - NA Sex Observation Social History Observation Description Sex Observation Female Sexual Orientation Social History Observation Description Sexual Orientation Straight or heterose xual Gender Identity Social History Observation Description Gender Identity Female Social History Miscellaneous Social Info Question Answer Notes Method of learning: Preferred method of learning: Discussion,Demonstration,Hear ing Primary Social History Social Info Question Answer Notes Living Arrangement Living Arrangement: Independent Samia ing Is this a supportive environment? Yes Tobacco Use - do not use Tobacco Use: Status Reviewed with Patient Single Question Alcohol Screening How many times in the past year have you had (4 for women, or 5 for men) or more drinks in a day? 0 Employment Status Employment Status: Unemployed Illicit Substance Usage Illicit Substance Usage: No Alcohol Use Alcohol Use Frequency: Never Tobacco Use: Social Info Question Answer Notes Dont use, Tobacco Use/Smoking Are you a former smoker Tobacco Control (Standard) Tobacco use: Nonsmoker Problems Problem Type SNOMED Code ICD Code Dates Problem Status W/U Status Risk Notes Problem Anxiety (14462101) Anxiety (F41.9) Added On: 021 Onset Date: 11/06/2021 Active confirmed Problem Bipolar 1 disorder (935093188) Bipolar 1 disorder (F31.9) Added On: 020 Onset Date: 11/06/2021 Active confirmed Problem Overweight (421526055) Over weight (E66.3) Added On: 025 Active confirmed Vital Signs Vital Sign Value Notes Appt Date Heart Rate 115 /min 12/04/2024 Respiratory Rate 16 /min 12/04/2024 Blood pressure diastolic 82 mm Hg Oximetry 98 % 12/04/2024 Height 67in in 12/04/2024 Blood pressure systolic 128 mm Hg 11/08 Weight 194.4lbs lbs 12/04/2024 BMI 30.44 kg/m2 12/04/2024 Encounters Date Time Type Facility Location Provider Diagnosis 03/20/2024 01:00 PM Office Visit, Est Pt., Level 3 (15637) [address] [address] Arif Habib Nutritional counseling Z71.3 ; Anxiety F41.9 and Bipolar 1 disorder F31.9 06/12/2024 02:00 PM Office Visit, Est Pt., Level 3 (29859) [address] [address] Arif Habib Nutritional counseling Z71.3 ; Anxiety F41.9 and Bipolar 1 disorder F31.9 09/11/2024 02:00 PM Office Visit, Est Pt., Level 3 (32162) [address] [address] Arif Habib Over weight E66.3 ; Nutritional counseling Z71.3 ; Anxiety F41.9 and Bipolar 1 disorder F31.9 12/04/2024 02:00 PM Office Visit, Est Pt., Level 3 (52780) [address] [address] Arif Habib Over weight E66.3 ; Nutritional counseling Z71.3 ; Anxiety F41.9 and Bipolar 1 disorder F31.9 Assessments Encounter Date Diagnosis (ICD Code) Assessment Notes Treat ment Notes Section Notes 03/20/2024 Nutritional counseling (ICD-10 - Z71.3) 09/11/2024 Over weight (ICD-10 - E66.3) 06/12/2024 Nutritional counseling (ICD-10 - Z71.3) 12/04/2024 Over weight (ICD-10 - E66.3) 12/04/2024 Nutritional counseling (ICD-10 - Z71.3) 09/11/2024 Nutritional counseling (ICD-10 - Z71.3) 06/12/2024 Anxiety (ICD-10 - F41.9) 03/20/2024 Anxiety (ICD-10 - F41.9) 03/20/2024 Bipolar 1 disorder (ICD-10 - F31.9) risk & benefits discussed in detail. Continue current treatment. No involuntary movements reported. 06/12/2024 Bipolar 1 disorder (ICD-10 - F31.9) [...] Gonzales, 10:00:00 AM, [address], [place], [address], Insurance Providers Payer Name Payer Address Payer Phone Subscriber Number Group Number Insured Name Patient Relationship to Insured Coverage Start Date Coverage End Date MEDICARE PART A [address] [place] [address] [id number] Sherwin Jernigani Self - patient is the insured 5 [employer] Medicare [address] [place] [address] [id number] Sherwin Jernigani Self - patient is the insured 1 1 MEDICAID [address] [place] [address] [id number] Sherwin Jernigani Self - patient is the insured 0 [facility] Medicare Assure [address] [address] [place] [address] [id number] Dakotah Jernigan Self - patient is the [...] for blood clots, kidney stones ,asthma attacks [facility] for indigestion and UTI Sep 2020
--- OUTSIDE RECORDS SUMMARY | 2025-01-21 17:59 | XMS_ITS | Patient Health Record ---
Author Organization [facility] Address [address] [place], [place] [address] Care Team Providers Care Real Estate Salesperson Name Role Phone BECKY Ramirez Unavailable [phone] Néstor Wu Unavailable Unavailable Reason For Referral [...] Date Coverage End Date Medicare Part B [place] [address] [facility] [place] [address] [id number] CASI DELEON Self - patient is the insured [facility] [address] [place], [place] [id number] CASI DELEON Self - patient is the insured
--- OUTSIDE RECORDS SUMMARY | 2025-01-21 17:59 | XMS_ITS | Clinical Summary ---
Author Organization [facility] [address] Address [address] [place] [address] Care Team Providers Care Software Applications Designer Name Role Phone Elena Payton Primary Care Pr ovider Allergies Active Allergy Reactions Criticality Noted Date Comments Ciprofloxacin Nausea & Vomiting Low 07/03/2024 Codeine Itching,Unknown Low 12/28/2016 Penicillins Fever,Shortness of breath,Unknown High 12/28/2016 Sulfa (Sulfonamide Antibiotics) Itching,Nausea And Vomiting,Unknown Medium 12/28/2016 Sulfamethoxazole-Trimethoprim Itching,Na usea And Vomiting,Unknown Low 12/28/2016 Unclassified Drug Unknown 12/28/2016 Medications inhalat.spacing dev,large mask (OptiChamber Ivette Lg Mask) spacer OptiChamber Ivette [facility] with Large Mask Active albuterol 2.5 [...] on file 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 BREAST TISSUE: The tissue of both breasts [...] 04/18/2013 mammogram, and 03/24/2012 mammogram - [facility]. BREAST TISSUE: The tissue of [...] signed by: Edy Olsen M.D., md/:06/22/2016 11:03:24 Step Down Nurse: Jaz Oneill RT(Francisco)(M), [facility] letter sent: Normal Exam Reading location: BI-RADS: 2 Benign [EOD] us Elena LOPEZ IMG MAMMO PROCED URES Final Result from Last 3 Months or Most Recently Relevant to Health Maintenance Insurance * Guarantor: Delon Dakotah L Account Type Relation to Patient Date of Phone Billing Address Personal/Family Self 1955 [address] [place] [address] [employer] MEDICARE * Guarantor: Jernigan Dakotah L Account Type Relation to Patient Date of Phone Billing Address Personal/Family Self 1955 [address] [place] [address] MEDICARE IDPA Care Teams Software Applications Designer Relationship Specialty Start Date End Date Elena Payton PA PCP - General Physician Body Press Operator 09/11/18
--- OUTSIDE RECORDS SUMMARY | 2025-01-21 17:59 | XMS_ITS | Encounter Summary ---
Author Organization [facility] Address [address] [place] [address] Care Team Providers Care Client Architect Name Role Phone Elena Payton Primary Care Provider [phone] Robbin Rodgers MD Unavailable Encounter Details Date Type Department Care Team (Latest Contact Info) Description 12/13/2017 Abstract [facility] Cayetano Day MD Social [...] on filedocumented in this encounter Care Teams Client Architect Relationship Specialty Start Date End Date Elena Payton PA PCP - General 12/28/16 Robbin Rodgers MD [address] [address] Referring Physician VASCULAR SURGERY 12/28/16 documented as of this encounter
--- NOTE | 2025-01-21 18:06 | ED.SOB ---
HPI - SOB/Dyspnea General Chief Complaint: Shortness of Breath/Dyspnea Stated Complaint: SOB x 1 day Time Seen by Provider: 01/21/25 17:43 Source: patient and EMS Mode of arrival: EMS Limitations: no limitations History of Present Illness HPI Narrative: This is a 69-year-old female with history of COPD, bipolar disorder presents the ED for shortness of breath. Patient states that for the past 3 days, she has been having worsening shortness of breath. She has had a mild cough intermittently productive of clear sputum. Denies any known sick contacts. Denies fevers chills, chest pain. She reports that her shortness of breath is better at this time. She did not try any medications for this. Related Data Home Medications ?Medication ?Instructions ?Recorded ?Confirmed ?Last Taken ?Type levothyroxine 50 mcg tablet 50 mcg PO DAILY 09/22/20 11/23/24 02/08/24 History benztropine 0.5 mg tablet 0.5 mg PO DIRECTED 11/20/20 11/23/24 02/08/24 History citalopram 20 mg tablet (Celexa) 20 mg PO DAILY 11/20/20 11/23/24 02/08/24 History quetiapine 50 mg tablet 50 mg PO QACLUNCH 11/20/20 11/23/24 02/08/24 History albuterol sulfate 90 mcg/actuation 2 puff inhalation Q4-6H PRN 04/12/21 11/23/24 02/08/24 History aerosol inhaler Wheezing clonazepam 1 mg tablet 1 mg PO DAILY 02/09/24 11/23/24 02/08/24 History Allergies Allergy/AdvReac Type Severity Reaction Status Date / Time sulfamethoxazole Allergy Mild ITCHING/KATE Verified 11/20/24 13:46 H levofloxacin (From Levaquin) Allergy Unknown Unknown Verified 11/20/24 13:46 Penicillins Allergy Unknown Itching Verified 11/20/24 13:46 trimethoprim Allergy Unknown Itching Verified 11/20/24 13:46 Review of Systems Review of Systems: Gen.: Denies fevers or chills Eyes: Denies eye pain or visual change ENT: Denies congestion Respiratory: As per HPI CV: Denies chest pain or palpitations GI: Denies abdominal pain nausea, emesis or diarrhea denies burning, urgency, frequency or hematuria Musculoskeletal: Denies back pain or muscle pain Neuro: Denies numbness, tingling, weakness or focal weakness Skin: Denies rash Except as documented, all other systems reviewed and negative [facility] Past Medical History Medical History Liver cyst Pancreatic cyst Elevated alkaline phosphatase level Common bile duct dilation History of deep venous thrombosis (DVT) of distal vein of right lower extremity Irritable bowel syndrome Chronic obstructive pulmonary disease Bipolar 1 disorder Anxiety Depression Hypothyroid Ankle fracture, left Osteoporosis Kidney stones Endometriosis Pneumonia Asthma Surgical History Surgical History History of cholecystectomy History of tubal ligation History of bilateral hip replacements Family History Family History Sibling Patient's sister is in good health Father Acute myocardial infarction Hypertension Mother Family history of diabetes mellitus in first degree relative Other Family history of blood dyscrasia Social History Social History Social History: Surrogate decision maker: Mega Araya, niece. Code status: Full code. Years smoked: 17 Smoking status: Former smoker Tobacco type: cigarettes Second hand tobacco smoke exposure: No Smoking end date: 02/07/90 Additional smoking assessment comments: Quit at the age of 34. Boyfriend is a heavy smoker. Alcohol intake: former Drinks per week: 1 Substance use: never Substance use type: does not use Lack of Transportation: No Lack of Food: Never True Current Housing: Decline to Answer Concerned About Future Housing: Decline to Answer Difficulty Paying Gas/Electric Bills: Decline to Answer Difficulty Paying for Meds: Decline to Answer Currently Unemployed: Decline to Answer Education: Decline to Answer Difficulty w/ Childcare or Family Care: Decline to Answer Living arrangements: alone Additional living arrangements comments: The patient lives in her own apartment but stays with her boyfriend several days a week. Occupation/Education: other Additional occupation/education comments: Disabled. Gender identity (if verbalized by the patient): Female Spiritual care concerns: No Exam Narrative: APPEARANCE: No acute distress, nontoxic, resting in bed EYES: EOMI HEENT: Normocephalic, atraumatic, OMM RESPIRATORY: No respiratory distress Clear to auscultation bilaterally with no rhonchi wheezing or rales. CARDIOVASCULAR: Regular rate and rhythm without murmurs rubs or gallops. ABDOMINAL: Soft, nontender, nondistended, no rebound or guarding MUSCULOSKELETAl: Moves all extremities. No clubbing, cyanosis or edema. NEURO: Awake and alert. Following commands, speech normal, no focal deficits SKIN:: Warm, dry. No rashes lesions or abrasions PSYCHIATRIC: Normal affect/mood, Course Vital Signs Vital signs: Vital Signs Temperature 98.4 F 01/21/25 16:10 Pulse Rate 78 01/21/25 16:10 Respiratory Rate 20 01/21/25 16:10 Blood Pressure 119/62 01/21/25 16:10 Pulse Oximetry 94 01/21/25 16:10 Oxygen Delivery Room Air 01/21/25 16:10 Temperature 98.4 F 01/21/25 17:48 Pulse Rate 63 01/21/25 19:18 Respiratory Rate 19 01/21/25 19:18 Blood Pressure 122/67 01/21/25 19:18 Pulse Oximetry 99 01/21/25 19:18 Oxygen Delivery Room Air 01/21/25 17:49 MDM MDM Narrative Medical decision making narrative: 69-year-old female Presenting for shortness of breath. On initial evaluation patient was in no acute distress afebrile, hemodynamic stable. Differentials include but are not limited to: ACS, CHF Exacerbation, COPD exacerbation, PE, PNA, PTX, bronchitis, viral syndrome Notable exam findings: Heart and lungs clear, satting 98-99% on room air. No edema to the lower extremities. I personally reviewed the patient's lab result. Notable lab findings: CBC and CMP without significant abnormalities. BNP slightly elevated at 121. COVID/flu/RSV negative. Troponin negative. I personally reviewed the patient's images and interpret as follows: Chest x-ray: Normal cardiac silhouette, no consolidations, no pleural effusions, no pulmonary vascular congestion I personally reviewed the patient's EKGs: Normal sinus rhythm, normal axis, normal intervals, no acute ST or T-wave changes Patient remained asymptomatic throughout her ED course. Suspect that she has a viral syndrome causing her symptoms and possibly a COPD exacerbation because of this, she will be given a prescription prednisone azithromycin. She was advised follow-up with PCP in the next week for re-evaluation. Patient was agreeable to this plan. Given strict return precautions. Differential Diagnosis Differential Diagnosis: ACS, CHF Exacerbation, COPD exacerbation, PE, PNA, PTX, bronchitis, viral syndrome Lab Data MDM Lab Attestation statement: I personally reviewed the patient's lab results. 01/21/25 18:09 01/21/25 18:09 Labs: Lab Results 01/21/25 Range/Units 18:09 WBC 8.8 (4.5-10.0) K/mm3 RBC 3.72 L (4.2-5.4) M/mm3 Hgb 13.1 (12.0-15.0) g/dL Hct 39.7 (37.0-47.0) % MCV 106.7 H (80-100) fl MCH 35.2 H (26-34) pg MCHC 33.0 (32-36) g/dl RDW 12.4 (11.5-14.5) % Plt Count 170 (150-375) k/mm3 MPV 8.5 (7.4-10.4) fl Immature Gran % (Auto) 0.5 (0-0.5) % Neut % (Auto) 47.0 (45.5-73.1) % Lymph % (Auto) 38.3 (18.3-44.2) % Preble % (Auto) 5.7 (2.6-8.5) % Eos % (Auto) 8.2 H (0-4.4) % Baso % (Auto) 0.3 (0.2-1.2) % Lymph # (Auto) 3.35 H (0.9-3.2) K/mm3 Preble # (Auto) 0.5 (0.1-0.6) K/mm3 Eos # (Auto) 0.7 H (0-0.3) K/mm3 Baso # (Auto) 0.0 (0.0-0.1) K/mm3 Abs Immat Gran (auto) 0.04 H (0.00-0.031) K/mm3 Absolute Neuts (auto) 4.1 (1.3-6.7) K/mm3 Absolute Nucleated RBC 0.000 (0.0-0.012) K/mm3 Band Neutrophils % 0 (0-6) % Nucleated RBC % 0.0 (0.0-0.2) % Platelet Estimate Adequate (Adequate) Macrocytosis 1+ (NORMAL) Schistocytes None seen Sodium 139 (137-145) mmol/L Potassium 4.2 (3.4-5.0) mmol/L Chloride 106 (98-107) mmol/L Carbon Dioxide 30 (22-30) mmol/L Anion Gap 3 L (4-12) mmol/L BUN 21 H D (7-17) mg/dL Creatinine 1.04 H (0.7-1.0) mg/dL Estim Creat Clear Calc 49 ml/min Estimated GFR 52 L (59 - ) Glucose 100 (65-110) mg/dL Calcium 10.5 H (8.4-10.2) mg/dL Total Bilirubin 0.5 (0.2-1.3) mg/dL AST 28 (14-36) U/L ALT 20 (6-35) U/L Alkaline Phosphatase 141 H (38-126) U/L Troponin I < 0.012 (0.000-0.034) ng/mL NT-Pro-B Natriuret Pep 121 H (19.9-100) pg/mL Total Protein 8.0 (6.3-8.2) g/dL Albumin 4.0 (3.5-5.1) g/dL Influenza A (RT-PCR) Negative (Negative) Influenza B (RT-PCR) Negative (Negative) RSV (RT-PCR) Negative (Negative) SARS-CoV-2 RNA (RT-PCR) Negative (Negative) Imaging Data Attestation: I personally reviewed and interpreted this imaging study as follows: Radiologist's impression: ITS Impressions Chest X-Ray 01/21/25 18:04 Impression: No acute cardiopulmonary abnormality. Discharge Plan Discharge Clinical Impression: Acute viral syndrome COPD (chronic obstructive pulmonary disease) Qualifiers: COPD type: unspecified COPD Qualified Code(s): J44.9 - Chronic obstructive pulmonary disease, unspecified Patient Disposition: Home Condition: Stable Instructions: Antibiotic Form, Viral Syndrome (ED) Additional Instructions: Labs and chest x-ray were reassuring. You tested negative for COVID/flu. You likely have another virus causing her symptoms. Given her history of COPD, he will be given a short course of azithromycin and prednisone, take this as prescribed. Follow-up with your PCP in the next week for re-evaluation. Return to the ED for any new or worsening symptoms. Patient Language: Panamanian Prescriptions: New prednisone 20 mg tablet 20 mg PO DAILY Qty: 4 0RF azithromycin 500 mg tablet 500 mg PO DAILY 2 Days Qty: 2 0RF No Action levothyroxine 50 mcg tablet 50 mcg PO DAILY citalopram [Celexa] 20 mg tablet 20 mg PO DAILY quetiapine 50 mg tablet 50 mg PO QACLUNCH Rx Instructions: takes at noon benztropine 0.5 mg Tablet 0.5 mg PO DIRECTED Rx Instructions: takes at 1600 albuterol sulfate 90 mcg/actuation HFA aerosol inhaler 2 puff INHALATION Q4-6H PRN (Reason: Wheezing) doxycycline hyclate 100 mg capsule 100 mg PO BID Qty: 14 0RF prednisone 20 mg tablet 40 mg PO DAILY Qty: 10 0RF cefdinir 300 mg capsule 300 mg PO Q12H Qty: 10 0RF fluticasone propion-salmeterol [Advair HFA] 230-21 mcg/actuation Hfa Aerosol Inhaler 2 puff inhalation Q12HRT 30 Days Qty: 250 0RF Rx Instructions: pt says used PRN Q12H (DME) nebulizer and compressor Device See Rx Instructions .Route Qty: 1 0RF Rx Instructions: As directed clonazepam 1 mg tablet 1 mg PO DAILY Follow-up/Referrals: Tata,SAMY Parker [Primary Care Provider, Unknown]
[2025-01-21 18:16] LABS: Hematocrit 39.7 % (37.0-47.0); Hemoglobin 13.1 g/dL (12.0-15.0); Immature Granulocyte Percent A 0.5 % (0-0.5); Lymphocytes Absolute Auto 3.35 K/mm3 (0.9-3.2); Mean Corpuscular HGB Conc 33.0 g/dl (32-36); Mean Corpuscular Hemoglobin 35.2 pg (26-34); Mean Corpuscular Volume 106.7 fl (80-100); Nucleated Red Blood Cells Absolute Auto 0.000 K/mm3 (0.0-0.012); Nucleated Red Blood Cells Perc 0.0 % (0.0-0.2); Platelet Count Result 170 k/mm3 (150-375); Red Blood Count 3.72 M/mm3 (4.2-5.4); White Blood Count 8.8 K/mm3 (4.5-10.0)
[2025-01-21 18:28] LABS: Alanine Aminotransferase 20 U/L (6-35); Albumin Level 4.0 g/dL (3.5-5.1); Alkaline Phosphatase 141 U/L (38-126); Anion Gap 3 mmol/L (4-12); Aspartate Amino Transferase 28 U/L (14-36); Bilirubin,Total 0.5 mg/dL (0.2-1.3); Blood Urea Nitrogen 21 mg/dL (7-17); Calcium 10.5 mg/dL (8.4-10.2); Carbon Dioxide 30 mmol/L (22-30); Chloride 106 mmol/L (98-107); Estimated CRCL calculation 49 ml/min; Estimated Glomerular Filt Rate 52; Glucose 100 mg/dL (65-110); Potassium 4.2 mmol/L (3.4-5.0); Sodium 139 mmol/L (137-145); Total Protein 8.0 g/dL (6.3-8.2)
[2025-01-21 18:37] LABS: Band Neutrophils Percent 0 % (0-6)
[2025-01-21 18:38] LABS: Macrocytosis 1+ (NORMAL); Schistocytes None Seen
[2025-01-21 18:39] LABS: NT Pro B Type Natriuretic Pept 121 pg/mL (19.9-100); Troponin I < 0.012 ng/mL (0.000-0.034)
--- OUTSIDE RECORDS SUMMARY | 2025-01-21 18:49 | XMS_ITS | Clinical Summary ---
Author Organization [facility] Address [address] [place] [address] Care Team Providers Care Doctor Chiropractic Name Role Phone Elena Payton Primary Care Provider [phone] Robbin Rodgers MD Unavailable Allergies Active Allergy [...] Comments Blood Pressure 104/69 01/06/2017 8:32 AM LEAD PROGRAMMER Pulse 81 01/06/2017 8:32 AM LEAD PROGRAMMER Temperature - - Respiratory Rate - - Oxygen Saturation - - Inhaled Oxygen Concentration - - Weight 69.9 kg (154 lb) 01/06/2017 8:32 AM LEAD PROGRAMMER Height 170.2 cm (5' 7) 01/06/2017 8:32 AM LEAD PROGRAMMER Body Mass Index 24.12 01/06/2017 8:32 AM LEAD PROGRAMMER Plan of Treatment Health Maintenance Due Date [...] this topic Insurance MEDICAID MEDICARE Care Teams Doctor Chiropractic Relationship Specialty Start Date End Date Elena Payton PA PCP - General 12/28/16 Robbin Rodgers MD [address] [place] [address] Referring Physician VASCULAR SURGERY 12/28/16
--- OUTSIDE RECORDS SUMMARY | 2025-01-21 18:49 | XMS_ITS | Clinical Summary ---
Author Organization [facility] Care Team Providers Care Risk Engineer Name Role Phone Unavailable Primary Care [...]
--- OUTSIDE RECORDS SUMMARY | 2025-01-21 18:49 | XMS_ITS | Clinical Summary ---
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 BREAST TISSUE: The tissue of [...] mammogram, 04/18/2013 mammogram, and 03/24/2012 mammogram - [facility]. BREAST TISSUE: The tissue of both breasts [...] signed by: Edy Olsen M.D., md/:06/22/2016 11:03:24 Documentation Nurse: Jaz Oneill RT(Francisco)(M), [facility] letter sent: Normal Exam Reading location: BI-RADS: 2 Benign [EOD] us Elena LOPEZ IMG MAMMO PROCED URES Final Result from Last 3 Months or Most Recently Relevant to Health Maintenance Insurance * Guarantor: Delon Dakotah L Account Type Relation to Patient Date of Phone Billing Address Personal/Family Self 1955 [address] [place] [address] [employer] MEDICARE * Guarantor: Jernigan Dakotah L Account Type Relation to Patient Date of Phone Billing Address Personal/Family Self 1955 [address] [place] [address] MEDICARE [employer] Care Teams Multimedia Educational Specialist Relationship Specialty Start Date End Date Elena Payton PA PCP - General Physician Manager Transition 09/11/18
--- OUTSIDE RECORDS SUMMARY | 2025-01-21 18:49 | XMS_ITS | Clinical Summary ---
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 Gender Identity Not on file Sexual Orientation Not on file Last Filed Vital Signs Vital Sign Reading Time Taken Comments Blood Pressure 106/62 01/18/2017 3:02 PM BRIDGE IRONWORKER HELPER Pulse 75 01/18/2017 3:02 PM BRIDGE IRONWORKER HELPER Temperature - - Respiratory Rate - - Oxygen Saturation 97% 01/18/2017 3:02 PM BRIDGE IRONWORKER HELPER Inhaled Oxygen Concentration - - Weight 69.4 kg (153 lb) 01/18/2017 3:02 PM BRIDGE IRONWORKER HELPER Height 171.5 cm (5' 7.5) 01/18/2017 3:02 PM BRIDGE IRONWORKER HELPER Body Mass Index 23.61 01/18/2017 3:02 PM BRIDGE IRONWORKER HELPER Plan of Treatment Health Maintenance Due Date [...] MEDICARE PART A AND B Care Teams Certified Social Workers In Health Care Relationship Specialty Start Date End Date Elena Payton PA PCP - General Physician Laborer Tree Tapping 01/18/17
--- OUTSIDE RECORDS SUMMARY | 2025-01-21 18:49 | XMS_ITS | Encounter Summary ---
Author Organization [facility] Address [address] [place] [address] Care Team Providers Care Nanotechnologist Name Role Phone Elena Payton Primary Care Provider [phone] Robbin Rodgers MD Unavailable Encounter Details Date Type Department Care Team (Latest Contact Info) Description 12/13/2017 Abstract [facility] Cayetano Day MD [...] on filedocumented in this encounter Care Teams Nanotechnologist Relationship Specialty Start Date End Date Elena Payton PA PCP - General 12/28/16 Robbin Rodgers MD [address] [address] Referring Physician VASCULAR SURGERY 12/28/16 documented as of this encounter
[2025-01-21 18:52] LABS: Influenza A QL RT-PCR Negative (Negative); Influenza B QL RT-PCR Negative (Negative); RSV RNA, RT-PCR Negative (Negative); SARS-CoV-2 RNA PCR Negative (Negative)
[2025-01-21] MEDS: AZITHROMYCIN 500 MG TABLET PO (19:10)
== END 2025-01-21 19:19 | disposition home or self-care (01) ==
PROVIDERS: Emergency Provider Student in an Organized Health Care Education/Training Program; PCP Physician Assistant
DX: B34.9 Viral infection, unspecified (principal); J44.9 Chronic obstructive pulmonary disease, unspecified; Z20.822 Contact with and (suspected) exposure to COVID-19; Z86.718 Personal history of other venous thrombosis and embolism; F31.9 Bipolar disorder, unspecified; F41.9 Anxiety disorder, unspecified; E03.9 Hypothyroidism, unspecified; Z87.442 Personal history of urinary calculi
CPT/HCPCS: 36415; 71046; 80053; 83880; 84484; 85025; 87637; 93005; 99284; J7512

== ENCOUNTER 2025-01-26 08:41 | Outpatient (CLI) | payer MEDICARE, MEDICAID, SELFPAY ==
--- NOTE | ~2025-01-26 | MR_ITS ---
EXAMINATION: MR MRCP wo/w con/w 3D wo ind DATE: 01/26/2025 10:12 INDICATION: Other specified disease of biliary tract TECHNIQUE: Magnetic resonance imaging (MRI) of the abdomen was performed without and with 17 mL Multihance intravenous contrast. Sequences included coronal T2- weighted SS-FSE, coronal T2-weighted FS SS-FSE, coronal T2-weighted FS FIESTA, axial T2-weighted FS FIESTA, axial T2-weighted FIESTA, sagittal T2-weighted SS- FSE, axial T1-weighted dual-echo FSPGR, axial T2-weighted SS-FSE, axial T1- weighted LAVA, axial T2-weighted STIR FSE. Thick-slab T2-weighted FRFSE-XL images were obtained for magnetic resonance cholangiopancreatography (MRCP). Rotating maximum intensity projection 3-D reconstructions of the volumetric data were created by the technologist. Postcontrast sequences included a time course of axial T1-weighted LAVA. COMPARISON: CT dated 11/18/2024 FINDINGS: ABDOMEN MRI: Heart size is normal. No pericardial or pleural effusion. Multiple cysts in the liver and both kidneys. Largest hepatic cyst measures 5.7 cm and the renal cysts measure up to 3.2 cm and the left kidney. Majority the remaining cysts are less than 1 cm. Cholecystectomy clips the gallbladder fossa. Spleen, pancreas and bilateral adrenal glands are normal. Visualized portions of bowels are normal with no obstruction. No pathologically enlarged abdominal or upper pelvic lymphadenopathy. Mild thoracic and lumbar spondylosis. T1 hyperintense fat saturating hemangiomas at T11 and L1. Lumbarized S1 segment. ABDOMEN MRCP: Common hepatic duct is dilated to 1.7 cm which tapers to 7 mm in the distal common bile duct with no evident distal obstructing stone or mass. There is mild central intrahepatic biliary ductal dilation. There is also mild dilation of the main pancreatic duct which measures up to 4.5 mm maximal diameter at the head of the pancreas also without evident obstructing stones or masses.. IMPRESSION: 1. Moderate dilation of the common hepatic duct to 1.7 cm with mild intrahepatic biliary ductal dilation and mild dilation of the main pancreatic duct. No evident obstructing stones or masses and is likely related to prior cholecystectomy. Reviewed, dictated and finalized at location A. ION COORDINATOR IMPRESSION: 1. Moderate dilation of the common hepatic duct to 1.7 cm with mild intrahepati c biliary ductal dilation and mild dilation of the main pancreatic duct. No paola dent obstructing stones or masses and is likely related to prior cholecystectom y.
== END 2025-01-26 08:42 | disposition home or self-care (01) ==
PROVIDERS: PCP Physician Assistant; Visit Provider Nurse Practitioner Family
DX: K83.8 Other specified diseases of biliary tract (principal); K86.89 Other specified diseases of pancreas; R74.8 Abnormal levels of other serum enzymes; K86.2 Cyst of pancreas; K76.89 Other specified diseases of liver; Z90.49 Acquired absence of other specified parts of digestive tract
CPT/HCPCS: 74183; 76376; A9577

== ENCOUNTER 2025-01-29 21:28 | Emergency (ER) | payer MEDICARE, OTHER, SELFPAY ==
--- OUTSIDE RECORDS SUMMARY | 2023-09-06 11:00 | XMS_ITS ---
Author Organization Replaced by [facility] Address [address] [place] [address] Phone [phone] Care Team Providers Care Foreign Car Mechanic Name Role Phone Janet HICKEY, Jewel Primary Care Provider [phone] [facility] Unav ailable Unavailable REASON FOR VISIT Psych F/U Social History Sex Observation Social History Observation Description Sex Observation Female Sexual Orientation Social History Observation Description Sexual Orientation Straight or heterose xual Gender Identity Social History Observation Description Gender Identity Female Encounters Date Time Type Facility Location Provider Diagnosis 09/06/2023 11:00 AM Office Visit [place] [address] [place] [address] Jewel Gonzales Plan Of Treatment Next Appt Details Provider Name:Jewel Gonzales, 10:00:00 AM, [facility], [place], [address], Medical (General) History Medical History History ICD Code COPD Surgical History Surgery Date(Month/Year) Broken ankle surg and Rehab Sep 2018 UTI/Dehydration, hospitalized 2014 Pnuemonia 2013 Bilateral hip replacements 1999 Tubal Ligation 1997 Hospitalization History Reason Date(Month/Year) broken pelvic bone [facility] for exacerbation of COPD A pril 2021 ER visits for blood clots, kidney stones ,asthma attacks [facility] for indigestion and UTI Sep 2020 Progress Notes * Sherwin JERNIGANiDOB:1955 ( 69 yo F)Acc No.[id number]:09/06/2023 UNLOCKED PROGRESS NOTE Patient: Dakotah DENG Provider: Padilla Gonzales :1955 A ge:68 Y S ex:Female Date:09/06/2023 Address:[address] [place] [address], [address] Subjective: * Chief Complaints: * 1 . Psych F/U. * Screening: * * Medical History: Objective: * Vitals: Assessment: Plan: * Treatment: * * Electronic signature of Jewel Gonzales MD, [id number] on 01/29/2025 at 09:31 PM SOCIAL SERVICES SPECIALIST Sign off status: Pending * Provider: Padilla Gonzales Date: 0 09/06/2023 Generated for Tony bess/Salvatore/Gt on: 1 04/01/2024 09:31 PM SOCIAL SERVICES SPECIALIST
--- OUTSIDE RECORDS SUMMARY | 2023-09-30 14:00 | XMS_ITS ---
Author Organization [facility] Address [address] [place] [address] Phone [phone] Care Team Providers Care Weight Training Instructor Name Role Phone Janet HICKEY, Jewel Primary Care Provider [phone] [facility] Unav ailable Unavailable [...] 09/30/2023 02:00 PM Office Visit [facility] [address] [place] [address] Jewel Gonzales Plan Of Treatment Next Appt Details Provider Name:Jewel Gonzales, 10:00:00 AM, [address], [place], [address], Medical (General) History Medical History History ICD [...] * Noam JERNIGANB:1955 ( 69 yo F)Acc No.[id number]:09/30/2023 UNLOCKED PROGRESS NOTE Patient: Dakotah DENG Provider: Padilla Gonzales :1955 A ge:68 Y S ex:Female Date:09/30/2023 Address:[address] [place] [address], [address] Subjective: * Chief Complaints: * 1 . 1 Month Psych F/U & Med Refill. * Screening: * * Medical History: Objective: * Vitals: Assessment: Plan: * Treatment: * * Electronic signature of Jewel Gonzales MD, [id number] on 01/29/2025 at 09:31 PM AUTOMATIC BUFFING WHEEL FORMER Sign off status: Pending * Provider: Padilla Gonzales Date: 0 09/30/2023 Generated for Tony bess/Salvatore/Nigelsmitting on: 1 04/01/2024 09:31 PM AUTOMATIC BUFFING WHEEL FORMER
--- NOTE | ~2025-01-29 | CT_ITS ---
EXAMINATION: CT abdomen pelvis w con DATE: 01/30/2025 06:17 INDICATION: Abdominal pain. TECHNIQUE: Computed tomography (CT) of the abdomen and pelvis was performed with 100 mL Omnipaque 350 intravenous contrast. Automated exposure control and iterative reconstruction technique were employed. The dose-length product was 696.03 mGy-cm. COMPARISON: CT abdomen and pelvis 11/18/2024 FINDINGS: The visualized portions of the lung bases demonstrate mild atelectasis. There is a pneumatocele in right middle lobe. No pleural effusion. The heart size is normal. No pericardial effusion. There is a small sliding hiatal hernia. There are cysts in the liver measuring up to 3.9 cm. There are changes of cholecystectomy. The common duct is dilated to 14 mm. The spleen, pancreas, and adrenal glands are normal. There are cysts in the kidneys measuring up to 3.4 cm on the left. There are greater than 10 stones in right kidney measuring up to 8 mm. There are approximately 6 stones in left kidney measuring up to 11 mm. There are bilateral total hip arthroplasties. There is an old healed fracture of left inferior pubic ramus. IMPRESSION: 1. Stable mildly enlarged common duct status post cholecystectomy. 2. Small sliding hiatal hernia. Reviewed, dictated and finalized at location E. [facility] [employer] CONSULTANT
--- OUTSIDE RECORDS SUMMARY | 2025-01-29 21:31 | XMS_ITS | Clinical Summary ---
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 BREAST TISSUE: The tissue of both breasts [...] mammogram, 04/18/2013 mammogram, and 03/24/2012 mammogram - [facility]. BREAST TISSUE: The tissue of both breasts [...] signed by: Edy Olsen M.D., md/:06/22/2016 11:03:24 Telecommunications Technician: Jaz Oneill RT(Francisco)(M), [facility] letter sent: Normal Exam Reading location: BI-RADS: 2 Benign [EOD] us Elena LOPEZ IMG MAMMO PROCED URES Final Result from Last 3 Months or Most Recently Relevant to Health Maintenance Insurance * Guarantor: Delon Dakotah L Account Type Relation to Patient Date of Phone Billing Address Personal/Family Self 1955 [address] [place] [address] [employer] MEDICARE * Guarantor: Jernigan Dakotah L Account Type Relation to Patient Date of Phone Billing Address Personal/Family Self 1955 [address] [place] [address] MEDICARE [facility] Address: [address] [address] [place] [address] [employer] Care Teams Soil Fertility Specialist Relationship Specialty Start Date End Date Elena Payton PA PCP - General Physician Conduit Mechanic 09/11/18
--- OUTSIDE RECORDS SUMMARY | 2025-01-29 21:31 | XMS_ITS | Encounter Summary ---
Author Organization [facility] Address [address] [place] [address] Care Team Providers Care Operating Table Assembler Name Role Phone Elena Payton Primary Care Provider [phone] Robbin Rodgers MD Unavailable Encounter Details Date Type Department Care Team (Latest Contact Info) Description 12/13/2017 Abstract [facility] Cayetano Day MD Social [...] on filedocumented in this encounter Care Teams Operating Table Assembler Relationship Specialty Start Date End Date Elena Payton PA PCP - General 12/28/16 Robbin Rodgers MD [address] [address] Referring Physician VASCULAR SURGERY 12/28/16 documented as of this encounter
--- OUTSIDE RECORDS SUMMARY | 2025-01-29 21:31 | XMS_ITS | Clinical Summary ---
Author Organization [facility] Care Team Providers Care Security Checker Name Role Phone Unavailable Primary Care Provider [...]
--- OUTSIDE RECORDS SUMMARY | 2025-01-29 21:31 | XMS_ITS | Data Portability ---
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 Command And Control Specialist variances may occur. Despite proofreading, typographical errors may occur. Occasional wrong-word or 'ewadp-s-ufhn' substitutions may have occurred due to the inherent limitations of voice recording. Read the chart carefully and recognize, using context, where substitutions have occurred. Not available 04/19/2024 12:00:51 07/23/2024 07/23/2024 This note is dictated and transcribed by [employer]. Command And Control Specialist variances may occur. Despite proofreading, typographical errors may occur. Occasional wrong-word or 'hvusl-q-wpdx' substitutions may have occurred due to the inherent limitations of voice recording. Read the chart carefully and recognize, using context, where substitutions have occurred. Not available 07/24/2024 15:39:38 Plan of Treatment Reminders Order Date Submit Date Provider Last Modified By Organization Details Last Modified Time Details Appointments None recorded. Lab vitamin D, 25-hydroxy, total, serum [email or web address] [place] [address] (Lab), [address] [place] [address] [address], [place], [address], 3 12:43:40 HbA1c (hemoglobin A1c), blood [email or web address] [place] [address] (Lab), [address] [place] [address], [address], 3 12:43:39 BMP, serum or plasma 2022 023 [email or web address] [address] [place] [address] (Lab), [address] [place] [address], [address], 3 12:43:39 CBC w/ auto diff 2022 023 [facility] [address] [place] [address] (Lab), [address] [place] [address], [address], 3 12:43:39 hepatic function panel, serum [address] (Lab), [address] [place] [address], [address], 3 12:43:40 lipid panel, serum 2022 023 [facility] [address] [place] [address] (Lab), [address] [place] [address], [address], 3 12:43:40 noninvasive colorectal cancer DNA + occult blood screening, QL, stool 2022 023 [email or web address], [address], [place], [address], 4 14:59:43 urinalysis complete, reflex culture [address] (Lab), [address] [place] [address], [address], 3 12:43:39 T4, free, serum [address] (Lab), [address] [place] [address], [address], 3 12:43:39 TSH, serum or plasma [address] [facility] (Lab), [address], [place], [address], 3 14:26:30 Referral accordion repairer referral 2022 023 LIGUORI Nico Bowling DPM, [address] [facility], [address], [place], [address], 3 05:01:27 Procedures None recorded. Surgeries None recorded. Imaging MAMMO, screening, digital, bilateral [address] [facility] (Mammography) , [address], [place], [address], 3 16:28:21 Medication Orders loratadine 10 mg tablet 2022 023 LIGUORI [id number], [address], [place], [place], [id number], 3 17:48:17 Patient TargetsNo targets recorded. Patient InstructionsNo instructions recorded. Reason for Referral Unloader Operator Referral for Unab le to cut own toenails Referring Physician: Elena Villanueva, Internal Medicine, Encounter Date: 05/25/2022 Results Created Date Observation Date Name Description Value Unit Range Abnormal Flag Note LastModifiedBy Organization Detail LastModifiedTime 05/25/19 24 05/25/2023 COLOG UARD cologuard result Cancel led - Order d not applic able Not Available [facility] [address], [place], [address], 05/25/2023 10:58:55 08/28/19 21 08/27/2020 US, doppl er, venou s No observ ation record ed. [id number] Not Available 04/07/2022 05:21:49 12/17/19 21 11/20/2020 CT, abdom en + pelvi s, w/ contr ast No observ ation record ed. MIGRATION. [facility] (Imaging) [address] [place] [address] [facility], [place], [address], 04/07/2022 05:21:49 12/18/19 21 11/23/2020 CT, angio gram, chest , w/ contr ast No observ ation record ed. MIGRATION. [address] [place] [address], [place], [address], 04/07/2022 05:21:49 12/18/19 21 11/23/2020 XR, chest , 2 view No observ ation record ed. MIGRATION. [address] [place] [address] (Imaging) [address] [place] [address], [place], [address], 04/07/2022 05:21:49 04/15/19 22 04/12/2021 XR, chest No observ ation record ed. MIGRATION. [address] [place] [address] (Imaging) [address] [place] [address], [place], [address], 04/07/2022 05:21:49 04/18/19 22 03/26/2021 US, doppl er, venou s No observ ation record ed. MIGRATION. Not Available 04/07/2022 05:21:49 04/28/19 22 04/27/2021 MAMMO , scree barbara, digit al, bilat eral No observ ation record ed. MIGRATION. Not Available 04/07/2022 05:21:49 06/23/19 22 06/22/2021 CT, abdom en + pelvi s, w/ contr ast No observ ation record ed. MIGRATION. [address] [place] [address], [place], [address], 04/07/2022 05:21:49 10/30/19 22 10/19/2021 US, doppl er, venou s No observ ation record ed. MIGRATION. [address] [place] [address], [place], [address], 04/07/2022 05:21:49 12/17/19 22 12/15/2021 XR, chest No observ ation record ed. [id number] [facility] (Human Resources) [address], [place], [address], 04/07/2022 05:21:49 07/31/19 23 07/29/2022 MAMMO , scree barbara, digit al, bilat eral No observ ation record ed. [email or web address] [facility] [address] [facility] [address], [place], [address], 10/26/2022 18:26:57 12/10/1909/15/2022 XR, foot No observ ation record ed. [email or web address] [facility] [address] [facility] [address], [place], [address], 12/13/2022 17:13:24 Result Notes None recorded. Problems Name Problem SNOMED Code Status Onset Date Resolution Date Notes Provider Name and Address Organization Details Recorded Time Bipolar disorder 11436312 Active Not Available [facility] 3 05:13:46 Blood glucose outside reference range 298727939 Active Not Available [facility] 3 05:13:46 Chronic urinary tract infection 448848302 Active Not Available [facility] 3 05:13:46 Pain of joint of elbow 769619355 Active Not Available [facility] 3 05:13:46 Anemia 280745572 Active Not Available [facility] 3 05:13:46 Eruption 125588270 Active Not Available [facility] 3 05:13:46 Vaginal lesion 052523618 Active Not Available [facility] 3 05:13:46 Otitis externa 1702951 Active Not Available [facility] 3 05:13:46 Pain in left knee Active Not Available [facility] 3 05:13:47 Major depressive disorder 628711471 Active Not Available [facility] 3 05:13:47 Impairment of balance 410338562 Active Not Available [facility] 3 05:13:47 Hypothyroi dism 92058930 Active Not Available [facility] 3 05:13:47 Pain of hip region 46594085 Active Not Available [facility] 3 05:13:47 Osteoporos is 93732143 Active Not Available [facility] 3 05:13:47 Fatigue 33993394 Active Not Available [facility] 3 05:13:47 Facial paresthesi a 49499386 Active Not Available [facility] 3 05:13:47 Wheezing 41232230 Active 2018 Not Available [facility] 3 05:13:47 Trimalleol ar fracture 640450416 Active 2018 Not Available [facility] 3 05:13:46 Trimalleol ar fracture 352056287 Active 2018 Not Available [facility] 3 05:13:46 Impacted cerumen of bilateral ears 1426821823838 108 Active 2021 Not Available [facility] 3 05:13:46 Long-term drug therapy Active 2021 Not Available [facility] 3 05:13:46 Cholestero l screening Active 2021 Not Available [facility] 3 05:13:46 Lower urinary tract symptoms 804734087 Active 2021 Not Available [facility] 3 05:13:46 Otitis media 93489929 Active 2021 Not Available [facility] 3 05:13:47 Asthma 507981964 Active 2022 JESSICA Allen [address], [place] [address], [place], [address] , [email or web address] 3 13:09:04 Hyperlipid emia 84171536 Active 2022 JESSICA Allen [address], [address], [place], [address] , [email or web address] [facility] 3 15:24:04 Seasonal allergic rhinitis 271207944 Active 2022 JESSICA Allen [address], [address], [place], [address] , [employer] 3 17:47:52 Acute urinary tract infection 951904912 Active 2022 JESSICA Allen [address], [address], [place], [address] , [employer] 3 16:06:55 Dystrophia unguium 11106979 Active 2024 Nico Bowling DPM [address], [address], [place], [address] , [employer] 5 13:57:56 Bunion 380177465 Active 2024 Nico Bowling DPM [address], [address], [place], [address] , [employer] 5 13:57:59 Hammer toe 222448768 Active 2024 Nico Bowling DPM [address], [address], [place], [address] , [employer] 5 13:58:28 Pain in toe 839649659 Active 2024 Nico Bowling DPM [address], [address], [place], [address] , [employer] 13:58:41 Problem Notes None recorded. Procedures Surgical History Date Name Laterality Status Provider Name and Address Organization Details Recorded Time 07/24/19 25 Nail Debridement completed Nico Bowling DPM [address], [address], [place], [address], [employer] 07/24/2024 15:39:20 04/20/19 25 Nail Debridement completed Nico Bowling DPM [address], [address], [place], [address], [employer] 04/19/2024 13:57:27 04/09/19 20 Most Recent Bone Density completed Not Available [facility] 04/07/2022 05:05:19 Tubal Ligation completed Not Available [facility] 04/07/2022 05:05:22 Cholecystectomy completed Not Available [facility] 04/07/2022 05:05:22 Orthopedic Surgery completed Not Available [facility] 04/07/2022 05:05:22 Imaging Results None recorded. Procedure Notes None recorded. Medical Equipment None Reported. Allergies Allergen ID Allergen Name Allergen Category Reaction Reaction Severity Criticality Documentation Date Start Date Code Code System Note Provider Name and Address Organization Details Recorded Time 33366 Cipro medicatio n Not available Not available Not available 04/19/2024 66956 3 [facility] 5 12:21:41 71941 Levaquin medicatio n Not available Not available Not available 04/19/2024 00447 2 RxNorm Melinda vicente, [facility] 5 12:21:56 9545 sulfameth izole Not available Not available Not available Not available 04/07/2022 85562 RxNorm Not Available [facility] 3 05:21:25 9546 sulfadime thoxine Not available Not available Not available Not available 04/07/2022 26008 RxNorm Not Available [facility] 3 05:21:25 9547 Substance with sulfonami de structure and antibacte rial mechanism of action (substanc e) medicatio n itching moderate Not available 04/07/2022 93461 8003 SNOMED Not Available [facility] 3 05:21:25 9548 Product containin g penicilli n (product) medicatio n fever moderate Not available 04/07/2022 57433 8001 SNOMED Not Available [facility] 3 05:21:25 9549 codeine medicatio n Not available Not available Not available 04/07/2022 2670 RxNorm Not Available [facility] 3 05:21:25 9550 Bactrim medicatio n itching mild Not available 04/07/2022 61558 9 RxNorm Not Available [facility] 3 05:21:25 Medications Name Sig [...] Not Available Not Available Not Available [facility] with Large Mask 05/25 completed [...] % 99 /min 16 /min 97.6 [degF] 56537.3 g 110/70 mm[Hg] Not Available [facility] 3 05:11:19 Date Recorded Body height Body mass index (BMI) Body weight Heart rate Respiratory rate Oxygen saturation Systolic And Diastolic Provider Name and Address Organization Details Last Updated DateTime 5 170.18 cm 31 kg/m2 53324.2 9 g 107 /min 14 /min 98 % 99/70 mm[Hg] Melinda Marin [place] [facility] [employer] [facility] 5 11:17:43 Date Recorded Body height Body temperature Body mass index (BMI) Body weight Respiratory rate Oxygen saturation Heart rate Systolic And Diastolic Provider Name and Address Organization Details Last Updated DateTime 3 170.18 cm 97.6 [degF] 31 kg/m2 22173.2 9 g 16 /min 98 % 104 /min 128/80 mm[Hg] EDWARD Valles [facility] [employer] [facility] 3 14:42:15 Date Recorded Body height Body mass index (BMI) Body weight Heart rate Respiratory rate Oxygen saturation Provider Name and Address Organization Details Last Updated DateTime 5 170.18 cm 31 kg/m2 88690.2 9 g 107 /min 14 /min 98 % Melinda [facility] 5 16:59:27 Date Recorded Body mass index (BMI) Body height Oxygen saturation Heart rate Body temperature Body weight Systolic And Diastolic Provider Name and Address Organization Details Last Updated DateTime 1 27.8 kg/m2 170.18 cm 96 % 112 /min 96.2 [degF] 14417 g 120/80 mm[Hg] Not Available [facility] 3 05:11:19 Social History Question Answer Notes LastModified by Organizat ion Details LastModified Time Tobacco Smoking Status Never Smoker Not Available [facility] 04/07/2022 05:04:25 What Is Your Level Of Caffeine Consumption? Occasional [id number] Information not available 04/07/2022 How Much Tobacco Do You Chew? None MIGRATION.[id number] 7127 Information not available 04/07/2022 In The 14 Days Before Symptom Onset, Have You Had Close Contact With A Laboratory-confirm ed COVID-19 While That Case Was Ill? No MIGRATION.[id number] 9404 Information not available 04/07/2022 In The 14 Days Before Symptom Onset, Have You Had Close Contact With A Person Who Is Under Investigation For COVID-19 While That Person Was Ill? No MIGRATION.569299 7613 Information not available 04/07/2022 What Type Of Diet Are You Following? REGULAR MIGRATION.165944 2117 Information not available 04/07/2022 Which Illicit Or Recreational Drugs Have You Used? None MIGRATION.116061 8643 Information not available 04/07/2022 Have There Been Any Changes To Your Family Or Social Situation? No MIGRATION.268229 8371 Information not available 04/07/2022 Do You Use Insect Repellent Routinely? No MIGRATION.635774 9036 Information not available 04/07/2022 What Was The Date Of Your Most Recent Tobacco Screening? 04/19/2024 Information not available 04/19/2024 What Is Your Relationship Status? Single MIGRATION.857359 5179 Information not available 04/07/2022 Do You Use Your Seat Belt Or Car Seat Routinely? Yes MIGRATION.885132 2387 Information not available 04/07/2022 Do You Have Smoke And Carbon Monoxide Detectors In Your Home? Yes MIGRATION.001492 8262 Information not available 04/07/2022 How Much Tobacco Do You Smoke? No MIGRATION.869444 5617 Information not available 04/07/2022 Do You Use Sunscreen Routinely? Yes MIGRATION.145976 6026 Information not available 04/07/2022 Has Tobacco Cessation Counseling Been Provided? No Information not available 04/19/2024 Have You Recently Traveled Abroad? No MIGRATION.999336 8292 Information not available 04/07/2022 Do You Have Difficulty Walking Or Climbing Stairs? No MIGRATION.157545 4484 Information not available 04/07/2022 Do You Have Any Dietary Restrictions? No MIGRATION.466773 1880 Information not available 04/07/2022 Sex: Unknown Functional Status Question Answer Note LastModified by [employer] ion Details LastModified Time Do you use any illicit or recreational drugs? No MIGRATION.909034 6784 Information not available 04/07/2022 Do you or have you ever used any other forms of tobacco or nicotine? No MIGRATION.176734 4785 Information not available 04/07/2022 What is your level of alcohol consumption? None MIGRATION.721165 2624 Information not available 04/07/2022 Do you or have you ever used smokeless tobacco? Never used smokeless tobacco MIGRATION.255107 1311 Information not available 04/07/2022 Are you currently employed? No [email or web address] Information not available 05/24/2022 Do you have transportation difficulties? Yes MIGRATION.943666 4947 Information not available 04/07/2022 Are you able to walk independently without assistance or assistive devices? YESWOREST MIGRATION.424279 5383 Information not available 04/07/2022 Are you able to care for yourself independently? No [email or web address] Information not available 05/24/2022 What is your occupation? unemployed MIGRATION.803468 5874 Information not available 04/07/2022 Do you have difficulty dressing, bathing, grooming, or toileting? No MIGRATION.594678 8715 Information not available 04/07/2022 Do you or have you ever used e-cigarettes or vape? Never used electronic cigarettes MIGRATION.825675 8061 Information not available 04/07/2022 What is your exercise level? None MIGRATION.312332 1985 Information not available 04/07/2022 Mental Status Question Answer Note LastModified by Organization D etails LastModified Time Do you have difficulty concentrating, remembering or making decisions? Yes [email or web address] Information no t available 05/24/2022 Family History Relationship Description Onset Age of this Age Resolved Age Notes LastModified by Organization Details LastModified Time Mother Motor vehicle traffic accident [id number] Not available 04/07/2022 05:05:28 Medical History Condition [...] formulation 5 completed Not Available [facility] 04/07/2022 05:21:16 Past Encounters Encounter ID Performer Location Encounter Start Date Encounter Closed Date Diagnosis/Indication Diagnosis SNOMED-CT Code Diagnosis ICD10 Code Diagnosis IMO Codes Diagnosis Note [id number] JESSICA Allen [facility] [place] [address] [place] [address] 07/14/2020 00:00:00 08/02/2020 23:47:21 [id number] JESSICA Allen [facility] [place] [address] [place] [address] 07/29/2020 00:00:00 08/05/2020 01:23:05 [id number] JESSICA Allen [facility] [place] [address] [place] [address] 08/27/2020 00:00:00 09/06/2020 08:48:14 [id number] JESSICA Allen [facility] [place] [address] [place] [address] 04/01/2021 00:00:00 04/04/2021 19:53:54 [id number] JESSICA [facility] [place] [address] [place] [address] 05/25/2022 14:05:06 05/25/2022 15:31:44 Hypothyroidism 27057000 E03.9 stable on supplement . due for labs. Major depr essive disorder 718913358 F32.9 stable on celexa therapy Blood gluc ose outside reference range 589100024 R73.09 due for a1c screening. Asthma 071874978 J45.90 9 stable. on advair Chronic ur inary tract infection 835922800 N39.0 UA w/cx due Long-term drug therapy 746124653 Z79.899 routine bmp, cbc, and LFT due Osteoporosis 83244580 M8 1.0 vit D screening due Hyperlipidemia 36069440 E78.5 fasting lipids are due Screening mammography 24 113835 Z12.31 mammogram due Unable to cut own toenails 673180991 Z74.1 refer to accordion repairer Seasonal a llergic rhinitis 334620666 J30.2 start loratidine 10mg daily. Screening for malignant neoplasm of colon 197092264 Z12.11 pt would like cologuard testing option. [id number] Nico Bowling DPM [facility] Pod[facility] [place] [address] [place] [address] 04/19/2024 11:08:22 04/24/2024 09:48:47 Pain in toe 780643694 M79.674 M79.675 secondary to deformitie sRecommend wide supportive shoe gearRecomm end offloading silicone toe sleevesRec ommend monitoring for wounds daily if present seek medical attention immediatel yFollow-up in 3 months for routine foot care Dystrophia unguium 82759 009 L60.3 nails debrided without incident Bunion 206654871 M21.61 9 bilateral worse to the righteduca karena on treatment optionsdoe s not want surgerysho wn conservati ve optionsfol low-up as needed Hammer toe 752410429 M20 .41 M20.42 as above [id number] Nico Bowling DPM [facility] [place] [address] [place] [address] 07/23/2024 16:52:27 07/25/2024 16:12:02 Dystrophia unguium 50279195 L60.3 nails debrided without incident Pain in toe 161841069 M7 9.674 M79.675 secondary to deformitie sRecommend [...] 07/20/2024 1 [place] Dakotah L Jernigan [id number] Dakotah L Jernigan 07/20/2024 2 [place] WHEN MEDICARE OR MEDICARE REPLACEMENT PRIMARY) Dakotah L Jernigan [id number] Dakotah L Jernigan 07/20/2024 [place] D[place]ICAL EQUIPMENT Dakotah L Jernigan [id number] Dakotah L Jernigan 07/20/2024 [employer] - DMEPOS ASSIGNED (MEDICARE DME REGION B) Dakotah L Jernigan [id number] Dakotah L Jernigan 04/19/2024 [place] Dakotah L Jernigan [id number] Dakotah L Jernigan 04/19/2024 [employer] - DMEPOS ASSIGNED (MEDICARE DME REGION B) Dakotah L Jernigan [id number] Dakotah L Jernigan 04/19/2024 [place] Dakotah L Jernigan [id number] Dakotah L Jernigan 04/19/2024 [employer] - DMEPOS ASSIGNED (MEDICARE DME REGION B) Dakotah L Jernigan [id number] Dakotah Nito Delon Notes Date Note Type [...] skin changes, andno hair changes. JESSICA Allen [address] [place] [address] [address], [place], [address], [place] [facility] 06/04/2022 13:50:05 5 text/html Patient presents the [...] deformity. Nico Bowling DPM [address], [facility] [address], [place], [address], [employer] 04/19/2024 13:59:42 5 text/html . Patient is a 69-year-old female she returns to the office for complaints of elongated toenails. Patient is unable to cut her nails. Patient denies any other complaints. Nico Bowling DPM [address], [facility] [address], [place], [address], [employer] 07/24/2024 15:39:56 OBGyn Episode No OBEpisode recorded.
--- OUTSIDE RECORDS SUMMARY | 2025-01-29 21:31 | XMS_ITS | Clinical Summary ---
Author Organization [facility] Address [address] [place] [address] Care Team Providers Care Marine Safety Officer Name Role Phone Elena Payton Primary Care Provider [phone] Robbin Rodgers MD Unavailable Allergies Active Allergy [...] Comments Blood Pressure 104/69 01/06/2017 8:32 AM COMMUNITY HEALTH NURSE STAFF Pulse 81 01/06/2017 8:32 AM COMMUNITY HEALTH NURSE STAFF Temperature - - Respiratory Rate - - Oxygen Saturation - - Inhaled Oxygen Concentration - - Weight 69.9 kg (154 lb) 01/06/2017 8:32 AM COMMUNITY HEALTH NURSE STAFF Height 170.2 cm (5' 7) 01/06/2017 8:32 AM COMMUNITY HEALTH NURSE STAFF Body Mass Index 24.12 01/06/2017 8:32 AM COMMUNITY HEALTH NURSE STAFF Plan of Treatment Health Maintenance Due Date [...] this topic Insurance MEDICAID MEDICARE Care Teams Marine Safety Officer Relationship Specialty Start Date End Date Elena Payton PA PCP - General 12/28/16 Robbin Rodgers MD [address] [place] [address] Referring Physician VASCULAR SURGERY 12/28/16
--- OUTSIDE RECORDS SUMMARY | 2025-01-29 21:31 | XMS_ITS | Patient Health Record ---
Author Organization [facility] Address [address] [place] [address] Phone [phone] Care Team Providers Care Data Analyst Name Role Phone Jewel Gonzales MD [...] Status W/U Status Risk Notes Problem Anxiety (23715183) Anxiety (F41.9) Added On: 021 Onset Date: 11/06/2021 Active confirmed Problem Bipolar 1 disorder ([id number]) Bipolar 1 disorder (F31.9) Added On: 020 Onset Date: 11/06/2021 Active confirmed Problem Overweight (324488162) Over weight (E66.3) Added On: 025 Active [...] PM Office Visit, Est Pt., Level 3 (78362) [address] [address] Arif Habib Nutritional counseling Z71.3 ; Anxiety F41.9 and Bipolar 1 disorder F31.9 06/12/2024 02:00 PM Office Visit, Est Pt., Level 3 ([id number]) [address] [address] Arif Habib Nutritional counseling Z71.3 ; Anxiety F41.9 and Bipolar 1 disorder F31.9 09/11/2024 02:00 PM Office Visit, Est Pt., Level 3 (48927) [address] [address] Arif Habib Over weight E66.3 ; Nutritional counseling Z71.3 ; Anxiety F41.9 and Bipolar 1 disorder F31.9 12/04/2024 02:00 PM Office Visit, Est Pt., Level 3 (03269) [address] [address] Arif Habib Over weight E66.3 ; Nutritional counseling Z71.3 ; Anxiety F41.9 and Bipolar 1 disorder F31.9 Assessments Encounter Date Diagnosis (ICD Code) Assessment Notes Treat ment Notes Section Notes 09/11/2024 Over weight (ICD-10 - E66.3) 12/04/2024 Over weight (ICD-10 - E66.3) 03/20/2024 Nutritional counseling (ICD-10 - Z71.3) 06/12/2024 Nutritional counseling (ICD-10 - Z71.3) 09/11/2024 Nutritional counseling (ICD-10 - Z71.3) 12/04/2024 Nutritional counseling (ICD-10 - Z71.3) 03/20/2024 Anxiety (ICD-10 - F41.9) 06/12/2024 Anxiety (ICD-10 - F41.9) 12/04/2024 Anxiety (ICD-10 - F41.9) 09/11/2024 Anxiety (ICD-10 - F41.9) 03/20/2024 Bipolar 1 disorder (ICD-10 - F31.9) risk & benefits discussed in detail. Continue current treatment. No involuntary movements reported. 06/12/2024 Bipolar 1 disorder (ICD-10 - F31.9) risk & benefits discussed in detail. Continue current treatment. No involuntary movements reported. 09/11/2024 Bipolar 1 disorder (ICD-10 - F31.9) risk & benefits discussed in detail. Continue current treatment. No involuntary movements reported. 12/04/2024 Bipolar 1 disorder (ICD-10 - F31.9) risk & benefits discussed in detail. Continue current treatment. No involuntary movements reported. Plan Of Treatment Next Appt Details Provider Name:Jewel Gonzales, 10:00:00 AM, [address], [place], [address], Insurance Providers Payer Name Payer Address Payer Phone Subscriber Number Group Number Insured Name Patient Relationship to Insured Coverage Start Date Coverage End Date MEDICARE PART A [address] [place] [address] [id number] Sherwin Jernigani Self - patient is the insured 5 [employer] Medicare [address] [place] [address] [id number] Sherwin Jernigani Self - patient is the insured 1 1 MEDICAID [address] [facility] [place] [address] [id number] Sherwin Jernigani Self - patient is the insured 0 [facility] Medicare Assure [address] [address] [place] [address] [id number] Dakotah Jernigan Self - patient is the [...] for blood clots, kidney stones ,asthma attacks [place] [facility] for indigestion and UTI Sep 2020
--- OUTSIDE RECORDS SUMMARY | 2025-01-29 21:32 | XMS_ITS | Clinical Summary ---
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 Gender Identity Not on file Sexual Orientation Not on file Last Filed Vital Signs Vital Sign Reading Time Taken Comments Blood Pressure 106/62 01/18/2017 3:02 PM MATERIALS HANDLER Pulse 75 01/18/2017 3:02 PM MATERIALS HANDLER Temperature - - Respiratory Rate - - Oxygen Saturation 97% 01/18/2017 3:02 PM MATERIALS HANDLER Inhaled Oxygen Concentration - - Weight 69.4 kg (153 lb) 01/18/2017 3:02 PM MATERIALS HANDLER Height 171.5 cm (5' 7.5) 01/18/2017 3:02 PM MATERIALS HANDLER Body Mass Index 23.61 01/18/2017 3:02 PM MATERIALS HANDLER Plan of Treatment Health Maintenance Due Date [...] MEDICARE PART A AND B Care Teams Eye Surgeon Relationship Specialty Start Date End Date Elena Payton PA PCP - General Physician Associate Java Developer 01/18/17
--- OUTSIDE RECORDS SUMMARY | 2025-01-29 21:32 | XMS_ITS | Patient Health Record ---
Author Organization [facility] Address [address] [place], [place] [id number] Care Team Providers Care Making Department Preparer Name Role Phone BECKY Ramirez Unavailable [phone] Néstor Wu Unavailable Unavailable Reason For Referral [...] Date Coverage End Date Medicare Part B [place] [address] [place] [address] [id number] CASI DELEON Self - patient is the insured [facility] [address] [place], [place] [id number] CASI DELEON Self - patient is the insured
[2025-01-29 21:40] VITALS: BP 138/77; PULSE 66; RESP 14; TEMP 36.8; O2SAT 98
--- NOTE | 2025-01-29 21:43 | ECG_ITS ---
Test Date: 2025-01-29 21:58:49 Measurements Intervals [place] Rate: 65 P: 8 AR: 157 QRS: 19 QRSD: 101 T: 4 QT: 369 QTc: 385 Interpretive Statements SINUS RHYTHM MINIMAL Q WAVES- HIGH LATERAL LEADS BORDERLINE ST-T WAVE ABNORMALITY- INFERIOR LEADS BASELINE ARTIFACT- I, II, III, AVR, AVL, AVF, V1-V6 BORDERLINE ECG Compared to ECG 01/21/2025 18:25:30 No significant changes Electronically Signed On 01-30-2025 06:54:53 AUDIOLOGY DIRECTOR by Mat Munoz D.O.
[2025-01-29 22:08] LABS: Hematocrit 40.7 % (37.0-47.0); Hemoglobin 13.3 g/dL (12.0-15.0); Immature Granulocyte Percent A 0.2 % (0-0.5); Lymphocytes Absolute Auto 4.07 K/mm3 (0.9-3.2); Mean Corpuscular HGB Conc 32.7 g/dl (32-36); Mean Corpuscular Hemoglobin 34.9 pg (26-34); Mean Corpuscular Volume 106.8 fl (80-100); Nucleated Red Blood Cells Absolute Auto 0.000 K/mm3 (0.0-0.012); Nucleated Red Blood Cells Perc 0.0 % (0.0-0.2); Platelet Count Result 181 k/mm3 (150-375); Red Blood Count 3.81 M/mm3 (4.2-5.4); White Blood Count 9.0 K/mm3 (4.5-10.0)
[2025-01-29 22:18] LABS: Alanine Aminotransferase 24 U/L (6-35); Albumin Level 4.1 g/dL (3.5-5.1); Alkaline Phosphatase 123 U/L (38-126); Anion Gap 5 mmol/L (4-12); Aspartate Amino Transferase 22 U/L (14-36); Bilirubin,Total 0.6 mg/dL (0.2-1.3); Blood Urea Nitrogen 26 mg/dL (7-17); Calcium 10.7 mg/dL (8.4-10.2); Carbon Dioxide 25 mmol/L (22-30); Chloride 105 mmol/L (98-107); Estimated CRCL calculation 57 ml/min; Estimated Glomerular Filt Rate > 60; Glucose 98 mg/dL (65-110); Lipase 119 U/L (23-300); Potassium 4.1 mmol/L (3.4-5.0); Sodium 135 mmol/L (137-145); Total Protein 7.8 g/dL (6.3-8.2)
[2025-01-30 03:27] VITALS: BP 130/73; PULSE 66; RESP 14; O2SAT 98
[2025-01-30 03:46] LABS: Add Urine Microscopic? YES; Appearance Urine Turbid (Clear); Budding Yeast Urine Present /hpf; Glucose Urine UA Negative (Negative); Leukocyte Esterase Ur 3+ LEU/UL (Negative); Need Manual Microscopic Reviewed; Nitrate Urine Positive (Negative); Non Pathogenic Casts 0-2; Specific Grav Ur 1.014 (1.001-1.035)
[2025-01-30 05:13] VITALS: BP 130/74; PULSE 72; RESP 17; O2SAT 97
--- NOTE | 2025-01-30 05:42 | ED.GENADULT ---
HPI - General Adult General Chief complaint: Abdominal Pain <Dany Hitchcock MD - Last Filed: 01/30/25 05:44> Stated complaint: abd pain x1 wk <Dany Hitchcock MD - Last Filed: 01/30/25 05:44> Time Seen by Provider: 01/30/25 02:59 <Dany Hitchcock MD - Last Filed: 01/30/25 05:44> History of Present Illness HPI narrative: patient is a 69-year-old female who presents emergency department with chief complaint of abdominal pain. Patient reports she has pain in the lower portions of her abdomen epigastric region patient reports that she had MRI on Tuesday. patient reports the discomfort is improved whenever she drinks water patient denies fever <Dany Hitchcock MD - Last Filed: 01/30/25 05:44> Related Data Home medications: Home Medications ?Medication ?Instructions ?Recorded ?Confirmed ?Last Taken ?Type levothyroxine 50 mcg tablet 50 mcg PO DAILY 09/22/20 11/23/24 02/08/24 History benztropine 0.5 mg tablet 0.5 mg PO DIRECTED 11/20/20 11/23/24 02/08/24 History citalopram 20 mg tablet (Celexa) 20 mg PO DAILY 11/20/20 11/23/24 02/08/24 History quetiapine 50 mg tablet 50 mg PO QACLUNCH 11/20/20 11/23/24 02/08/24 History albuterol sulfate 90 mcg/actuation 2 puff inhalation Q4-6H PRN 04/12/21 11/23/24 02/08/24 History aerosol inhaler Wheezing clonazepam 1 mg tablet 1 mg PO DAILY 02/09/24 11/23/24 02/08/24 History <Dany Hitchcock MD - Last Filed: 01/30/25 05:44> Allergies/adverse reactions: Allergies Allergy/AdvReac Type Severity Reaction Status Date / Time sulfamethoxazole Allergy Mild ITCHING/KATE Verified 01/29/25 21:25 H levofloxacin (From Levaquin) Allergy Unknown Unknown Verified 01/29/25 21:25 Penicillins Allergy Unknown Itching Verified 01/29/25 21:25 trimethoprim Allergy Unknown Itching Verified 01/29/25 21:25 <Dany Hitchcock MD - Last Filed: 01/30/25 05:44> Review of Systems Review of Systems: A 10 system review of systems was completed on the patient and is negative except for what is stated in the HPI. Nursing and ancillary documentation was reviewed. <Dany Hitchcock MD - Last Filed: 01/30/25 05:44> PENDING SALE TO [facility] Past Medical History Medical History: Medical History Liver cyst Pancreatic cyst Elevated alkaline phosphatase level Common bile duct dilation History of deep venous thrombosis (DVT) of distal vein of right lower extremity Irritable bowel syndrome Chronic obstructive pulmonary disease Bipolar 1 disorder Anxiety Depression Hypothyroid Ankle fracture, left Osteoporosis Kidney stones Endometriosis Pneumonia Asthma <Dany Hitchcock MD - Last Filed: 01/30/25 05:44> Surgical History Surgical History: Surgical History History of cholecystectomy History of tubal ligation History of bilateral hip replacements <Dany Hitchcock MD - Last Filed: 01/30/25 05:44> Family History Family History: Family History Sibling Patient's sister is in good health Father Acute myocardial infarction Hypertension Mother Family history of diabetes mellitus in first degree relative Other Family history of blood dyscrasia <Dany Hitchcock MD - Last Filed: 01/30/25 05:44> Social History Social History: Social History Social History: Surrogate decision maker: Mega Araya, niece. Code status: Full code. Years smoked: 17 Smoking status: Former smoker Tobacco type: cigarettes Second hand tobacco smoke exposure: No Smoking end date: 02/07/90 Additional smoking assessment comments: Quit at the age of 34. Boyfriend is a heavy smoker. Alcohol intake: former Drinks per week: 1 Substance use: never Substance use type: does not use Lack of Transportation: No Lack of Food: Never True Current Housing: Decline to Answer Concerned About Future Housing: Decline to Answer Difficulty Paying Gas/Electric Bills: Decline to Answer Difficulty Paying for Meds: Decline to Answer Currently Unemployed: Decline to Answer Education: Decline to Answer Difficulty w/ Childcare or Family Care: Decline to Answer Living arrangements: alone Additional living arrangements comments: The patient lives in her own apartment but stays with her boyfriend several days a week. Occupation/Education: other Additional occupation/education comments: Disabled. Gender identity (if verbalized by the patient): Female Spiritual care concerns: No <Dany Hitchcock MD - Last Filed: 01/30/25 05:44> Exam Narrative: GENERAL: Well-appearing, well-nourished, and in no acute distress. HEAD: Normocephalic, atraumatic. EYES: PERRLA and EOMI. ENT: Nares clear, no rhinorrhea or epistaxis. Mucous membranes moist. NECK: Supple. CHEST: Clear to auscultation. No respiratory distress. HEART: Regular rate and rhythm. No murmur heard. Normal peripheral pulses. ABDOMEN: Soft, tenderness to palpation the suprapubic region, nondistended, normal active bowel sounds. EXTREMITIES: Normal range of motion. No edema. SKIN: Warm, dry, no rash. NEURO: No focal deficits. Alert and oriented x3. PSYCH: Normal mood and affect. <Dany Hitchcock MD - Last Filed: 01/30/25 05:44> Course Vital Signs Vital signs: Vital Signs Temperature 98.2 F 01/29/25 21:40 Pulse Rate 66 01/29/25 21:40 Respiratory Rate 14 01/29/25 21:40 Blood Pressure 138/77 01/29/25 21:40 Pulse Oximetry 98 01/29/25 21:40 Oxygen Delivery Room Air 01/29/25 21:40 Temperature 98.2 F 01/29/25 21:40 Pulse Rate 69 01/30/25 07:13 Respiratory Rate 14 01/30/25 07:13 Blood Pressure 133/79 01/30/25 07:13 Pulse Oximetry 99 01/30/25 07:13 Oxygen Delivery Room Air 01/29/25 21:40 <Dany Hitchcock MD - Last Filed: 01/30/25 05:44> Vital Signs Temperature 98.2 F 01/29/25 21:40 Pulse Rate 66 01/29/25 21:40 Respiratory Rate 14 01/29/25 21:40 Blood Pressure 138/77 01/29/25 21:40 Pulse Oximetry 98 01/29/25 21:40 Oxygen Delivery Room Air 01/29/25 21:40 Temperature 98.2 F 01/29/25 21:40 Pulse Rate 69 01/30/25 07:13 Respiratory Rate 14 01/30/25 07:13 Blood Pressure 133/79 01/30/25 07:13 Pulse Oximetry 99 01/30/25 07:13 Oxygen Delivery Room Air 01/29/25 21:40 <Beka Delcid MD - Last Filed: 01/30/25 18:15> MDM MDM Narrative Medical decision making narrative: Patient care signed out to me by the overnight physician. 69-year-old female presents emergency department for evaluation for lower abdominal pain. Patient is currently afebrile with no leukocytosis hemoglobin of 13.3. Patient does have evidence of a urinary tract infection on her UA she is nitrate positive with greater than 100 white blood cells and high bacteria. Patient was treated with a dose of IV Rocephin patient will be discharged home with Keflex. Patient was comfortable with plan for discharge and close follow-up. <Beka Delcid MD - Last Filed: 01/30/25 18:15> Differential Diagnosis Differential Diagnosis: Colitis, diverticulitis, infected stone, UTI <Beka Delcid MD - Last Filed: 01/30/25 18:15> Lab Data Result diagrams: 01/29/25 21:54 01/29/25 21:54 <Dany Hitchcock MD - Last Filed: 01/30/25 05:44> Labs: Lab Results 01/29/25 01/30/25 Range/Units 21:54 03:25 WBC 9.0 (4.5-10.0) K/mm3 RBC 3.81 L (4.2-5.4) M/mm3 Hgb 13.3 (12.0-15.0) g/dL Hct 40.7 (37.0-47.0) % MCV 106.8 H (80-100) fl MCH 34.9 H (26-34) pg MCHC 32.7 (32-36) g/dl RDW 12.7 (11.5-14.5) % Plt Count 181 (150-375) k/mm3 MPV 8.5 (7.4-10.4) fl Immature Gran % (Auto) 0.2 (0-0.5) % Neut % (Auto) 41.8 L (45.5-73.1) % Lymph % (Auto) 45.1 H (18.3-44.2) % [place]gett % (Auto) 6.2 (2.6-8.5) % Eos % (Auto) 6.6 H (0-4.4) % Baso % (Auto) 0.1 L (0.2-1.2) % Lymph # (Auto) 4.07 H (0.9-3.2) K/mm3 Daggett # (Auto) 0.6 (0.1-0.6) K/mm3 Eos # (Auto) 0.6 H (0-0.3) K/mm3 Baso # (Auto) 0.0 (0.0-0.1) K/mm3 Abs Immat Gran (auto) 0.02 (0.00-0.031) K/mm3 Absolute Neuts (auto) 3.8 (1.3-6.7) K/mm3 Absolute Nucleated RBC 0.000 (0.0-0.012) K/mm3 Nucleated RBC % 0.0 (0.0-0.2) % Sodium 135 L (137-145) mmol/L Potassium 4.1 (3.4-5.0) mmol/L Chloride 105 (98-107) mmol/L Carbon Dioxide 25 (22-30) mmol/L Anion Gap 5 (4-12) mmol/L BUN 26 H (7-17) mg/dL Creatinine 0.89 (0.7-1.0) mg/dL Estim Creat Clear Calc 57 ml/min Estimated GFR > 60 (59 - ) Glucose 98 (65-110) mg/dL Calcium 10.7 H (8.4-10.2) mg/dL Total Bilirubin 0.6 (0.2-1.3) mg/dL AST 22 (14-36) U/L ALT 24 (6-35) U/L Alkaline Phosphatase 123 (38-126) U/L Total Protein 7.8 (6.3-8.2) g/dL Albumin 4.1 (3.5-5.1) g/dL Lipase 119 (23-300) U/L Urine Color Yellow (Yellow) Urine Appearance Turbid H (Clear) Urine pH 5.5 (5.0-9.0) Ur Specific [place] 1.014 (1.001-1.035) Urine Protein Trace (Negative) mg/dL Urine Glucose (UA) Negative (Negative) mg/dL Urine Ketones Negative (Negative) mg/dL Ur Blood (Man) 2+ H (Negative) Urine Nitrate Positive H (Negative) Urine Bilirubin Negative (Negative) Urine Urobilinogen 0.2 (<2.0) mg/dL Add Ur Microanalysis Reviewed Leukocyte Esterase Rfl 3+ H (Negative) CAITLIN/UL Urine RBC 6-10 H (0-2) /hpf Urine WBC >100 H (0-3) /hpf Ur Squamous Epith Cells Moderate (Few) /hpf Urine Bacteria 2+ H /hpf Urine Casts 0-2 Urine Yeast (Budding) Present H (None) /hpf <Dany Hitchcock MD - Last Filed: 01/30/25 05:44> Lab Results 01/29/25 01/30/25 Range/Units 21:54 03:25 WBC 9.0 (4.5-10.0) K/mm3 RBC 3.81 L (4.2-5.4) M/mm3 Hgb 13.3 (12.0-15.0) g/dL Hct 40.7 (37.0-47.0) % MCV 106.8 H (80-100) fl MCH 34.9 H (26-34) pg MCHC 32.7 (32-36) g/dl RDW 12.7 (11.5-14.5) % Plt Count 181 (150-375) k/mm3 MPV 8.5 (7.4-10.4) fl Immature Gran % (Auto) 0.2 (0-0.5) % Neut % (Auto) 41.8 L (45.5-73.1) % Lymph % (Auto) 45.1 H (18.3-44.2) % Daggett % (Auto) 6.2 (2.6-8.5) % Eos % (Auto) 6.6 H (0-4.4) % Baso % (Auto) 0.1 L (0.2-1.2) % Lymph # (Auto) 4.07 H (0.9-3.2) K/mm3 [place]gett # (Auto) 0.6 (0.1-0.6) K/mm3 Eos # (Auto) 0.6 H (0-0.3) K/mm3 Baso # (Auto) 0.0 (0.0-0.1) K/mm3 Abs Immat Gran (auto) 0.02 (0.00-0.031) K/mm3 Absolute Neuts (auto) 3.8 (1.3-6.7) K/mm3 Absolute Nucleated RBC 0.000 (0.0-0.012) K/mm3 Nucleated RBC % 0.0 (0.0-0.2) % Sodium 135 L (137-145) mmol/L Potassium 4.1 (3.4-5.0) mmol/L Chloride 105 (98-107) mmol/L Carbon Dioxide 25 (22-30) mmol/L Anion Gap 5 (4-12) mmol/L BUN 26 H (7-17) mg/dL Creatinine 0.89 (0.7-1.0) mg/dL Estim Creat Clear Calc 57 ml/min Estimated GFR > 60 (59 - ) Glucose 98 (65-110) mg/dL Calcium 10.7 H (8.4-10.2) mg/dL Total Bilirubin 0.6 (0.2-1.3) mg/dL AST 22 (14-36) U/L ALT 24 (6-35) U/L Alkaline Phosphatase 123 (38-126) U/L Total Protein 7.8 (6.3-8.2) g/dL Albumin 4.1 (3.5-5.1) g/dL Lipase 119 (23-300) U/L Urine Color Yellow (Yellow) Urine Appearance Turbid H (Clear) Urine pH 5.5 (5.0-9.0) Ur Specific [place] 1.014 (1.001-1.035) Urine Protein Trace (Negative) mg/dL Urine Glucose (UA) Negative (Negative) mg/dL Urine Ketones Negative (Negative) mg/dL Ur Blood (Man) 2+ H (Negative) Urine Nitrate Positive H (Negative) Urine Bilirubin Negative (Negative) Urine Urobilinogen 0.2 (<2.0) mg/dL Add Ur Microanalysis Reviewed Leukocyte Esterase Rfl 3+ H (Negative) CAITLIN/UL Urine RBC 6-10 H (0-2) /hpf Urine WBC >100 H (0-3) /hpf Ur Squamous Epith Cells Moderate (Few) /hpf Urine Bacteria 2+ H /hpf Urine Casts 0-2 Urine Yeast (Budding) Present H (None) /hpf <Beka Delcid MD - Last Filed: 01/30/25 18:15> Imaging Data Radiologist's impression: ITS Impressions Abdomen/Pelvis CT 01/30/25 07:04 IMPRESSION: 1. Stable mildly enlarged common duct status post cholecystectomy. 2. Small sliding hiatal hernia. <Dany Hitchcock MD - Last Filed: 01/30/25 05:44> ITS Impressions Abdomen/Pelvis CT 01/30/25 07:04 IMPRESSION: 1. Stable mildly enlarged common duct status post cholecystectomy. 2. Small sliding hiatal hernia. <Beka Delcid MD - Last Filed: 01/30/25 18:15> Discharge Plan Discharge Clinical Impression: Urinary tract infection <Dany Hitchcock MD - Last Filed: 01/30/25 05:44> Patient Disposition: Home <Dany Hitchcock MD - Last Filed: 01/30/25 05:44> Condition: Stable <Dany Hitchcock MD - Last Filed: 01/30/25 05:44> Instructions: Antibiotic Form, Urinary Tract Infection in Older Adults (ED) <Dany Hitchcock MD - Last Filed: 01/30/25 05:44> Additional Instructions: Antibiotic as directed until completed. Have close follow-up with your primary care physician <Dany Hitchcock MD - Last Filed: 01/30/25 05:44> Patient Language: Lao <Dany Hitchcock MD - Last Filed: 01/30/25 05:44> Prescriptions: New cephalexin 500 mg capsule 500 mg PO Q8H 7 Days Qty: 21 0RF No Action levothyroxine 50 mcg tablet 50 mcg PO DAILY citalopram [Celexa] 20 mg tablet 20 mg PO DAILY quetiapine 50 mg tablet 50 mg PO QACLUNCH Rx Instructions: takes at noon benztropine 0.5 mg Tablet 0.5 mg PO DIRECTED Rx Instructions: takes at 1600 albuterol sulfate 90 mcg/actuation HFA aerosol inhaler 2 puff INHALATION Q4-6H PRN (Reason: Wheezing) doxycycline hyclate 100 mg capsule 100 mg PO BID Qty: 14 0RF prednisone 20 mg tablet 40 mg PO DAILY Qty: 10 0RF cefdinir 300 mg capsule 300 mg PO Q12H Qty: 10 0RF prednisone 20 mg tablet 20 mg PO DAILY Qty: 4 0RF azithromycin 500 mg tablet 500 mg PO DAILY 2 Days Qty: 2 0RF fluticasone propion-salmeterol [Advair HFA] 230-21 mcg/actuation Hfa Aerosol Inhaler 2 puff inhalation Q12HRT 30 Days Qty: 250 0RF Rx Instructions: pt says used PRN Q12H (DME) nebulizer and compressor Device See Rx Instructions .Route Qty: 1 0RF Rx Instructions: As directed clonazepam 1 mg tablet 1 mg PO DAILY <Dany Hitchcock MD - Last Filed: 01/30/25 05:44> Follow-up/Referrals: Tata,SAMY Parker [Primary Care Provider, Unknown] <Dany Hitchcock MD - Last Filed: 01/30/25 05:44>
--- NOTE | 2025-01-30 05:49 | PC.NURSE ---
pt refused CT scan. EDP made aware
[2025-01-30 07:13] VITALS: BP 133/79; PULSE 69; RESP 14; O2SAT 99
[2025-01-30] MEDS: cefTRIAXone 1 GM in SODIUM CHLORIDE 0.9% IV 50 ML 100 ML IVPB (09:05)
== END 2025-01-30 10:12 | disposition home or self-care (01) ==
PROVIDERS: Emergency Provider Emergency Medicine; PCP Physician Assistant
DX: N39.0 Urinary tract infection, site not specified (principal); J44.9 Chronic obstructive pulmonary disease, unspecified; E03.9 Hypothyroidism, unspecified; N80.9 Endometriosis, unspecified; M81.0 Age-related osteoporosis without current pathological fracture; K58.9 Irritable bowel syndrome, unspecified; F31.9 Bipolar disorder, unspecified; F41.9 Anxiety disorder, unspecified; Z96.643 Presence of artificial hip joint, bilateral; Z87.442 Personal history of urinary calculi; Z87.01 Personal history of pneumonia (recurrent); Z86.718 Personal history of other venous thrombosis and embolism; Z87.891 Personal history of nicotine dependence; Z90.49 Acquired absence of other specified parts of digestive tract; K44.9 Diaphragmatic hernia without obstruction or gangrene; R94.31 Abnormal electrocardiogram [ECG] [EKG]
CPT/HCPCS: 36415; 74177; 80053; 81001; 83690; 85025; 93005; 96365; 99284; J0696; Q9967